=== PATIENT | male | born 1950 | race Caucasian/White ===

== ENCOUNTER 2016-10-23 09:01 | Emergency (ER) | payer MEDICARE, OTHER ==
[~2016-10-23] VITALS: Wt 79.0 kg
[~2016-10-23 09:01] MED LIST: ASPI-664 PO; ATOR20TA38 PO; CARV6.2579 PO; FURO20TA3 PO; GLIP-95 PO; LEVO100T87 PO; PANT40TA4 PO; TAMS0.4C2 PO
--- NOTE | 2016-10-23 11:07 | ERD ---
ER Documentation Chief Complaint Date/Time DATE: 10/23/16 TIME: 11:06 Chief Complaint PT HERE FOR PARACENTESIS, ALSO REPORTS BODYACHES, COUGH, NO FEVER HPI 66-year-old male history of alcoholic cirrhosis who presents for paracentesis. Last paracentesis 2 weeks ago. He describes abdominal fullness and mild shortness of breath secondary to abdominal fullness. He denies any chest pain, no pleuritic pain, no hematemesis or melena. No altered mental status. ROS All systems reviewed and are negative except as per history of present illness. Medications Home Meds Active Scripts Aspirin* (Aspirin* EC) 81 Mg Tablet.dr, 81 MG PO DAILY for 30 Days Prov:DICKSON GROSSMAN 08/16/16 Reported Medications Carvedilol* (Carvedilol*) 12.5 Mg Tablet, 12.5 MG PO BID, #60 TAB 10/23/16 Furosemide* (Furosemide*) 20 Mg Tablet, 20 MG PO BID, #30 TAB 10/16/16 Levothyroxine Sodium* (Levothyroxine Sodium*) 100 Mcg Tablet, 100 MCG PO BEFORE BREAKFAST, #30 TAB 10/16/16 Pantoprazole* (Pantoprazole*) 40 Mg Tablet.dr, 40 MG PO AC BREAKFAST, TAB 10/16/16 Tamsulosin Hcl* (Tamsulosin Hcl*) 0.4 Mg Cap.er.24h, 0.4 MG PO DAILY, CAP 10/16/16 Atorvastatin Calcium* (Atorvastatin Calcium*) 20 Mg Tablet, 20 MG PO QHS, #30 TAB 10/16/16 Glipizide* (Glipizide*) 10 Mg Tablet, 10 MG PO DAILY, TAB 03/13/15 Discontinued Reported Medications Carvedilol* (Carvedilol*) Unknown Strength Tablet, MG PO BID, #60 TAB 10/16/16 Sertraline Hcl* (Sertraline Hcl*) 50 Mg Tablet, 50 MG PO DAILY, #30 TAB 07/17/16 Levothyroxine Sodium* (Levothyroxine Sodium*) 75 Mcg Tablet, 75 MCG PO AC BREAKFAST, TAB 03/13/15 Omeprazole* (Omeprazole*) 40 Mg Capsule.dr, 40 MG PO DAILY, CAP 03/13/15 Tamsulosin Hcl* (Tamsulosin Hcl*) 0.4 Mg Cap.er.24h, 0.8 MG PO DAILY 10/28/13 Simvastatin (Simvastatin) 20 Mg Tablet, 20 MG PO QHS 10/28/13 Metformin Hcl (Glucophage) 500 Mg Tablet, 1000 MG PO BID 10/28/13 Finasteride* (Finasteride*) 5 Mg Tablet, 5 MG PO DAILY 10/28/13 Discontinued Scripts Calcium Carbonate (CALCIUM CARBONATE) 200 Mg Tab.chew, 1000 MG PO PC MEALS for 30 Days, TAB.CHEW Prov:DICKSON GROSSMAN 09/27/16 Hydrocodone Bit-Acetaminophen (Hydrocodone Bit-APAP) 5-325MG Tablet, 1 TAB PO Q6H Y for PAIN, #30 TAB Prov:DICKSON GROSSMAN 09/27/16 Docusate Sodium* (Colace*) 100 Mg Capsule, 100 MG PO BID, #30 CAP Prov:PEBBLES REYES 07/31/16 Midodrine* (Midodrine*) 5 Mg Tablet, 5 MG PO TID@09,13,17 Y for sbp<80 for 30 Days, TAB Prov:PEBBLES REYES 07/31/16 Allergies Allergies: Coded Allergies: No Known Allergy (Unverified , 10/23/16) PMhx/Soc History of Surgery: Yes (CABG, PACEMAKER PLACEMENT, DIALYSIS SHUNT ) Anesthesia Reaction: No Hx 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 Disorder: No Hx Respiratory Disorders: No Hx Cardiac Disorders: Yes (CHF, CAD) Hx Psychiatric Problems: No Hx Miscellaneous Medical Probl: Yes (DM, LIVER CIRRHOSIS, RENAL FAILURE) Hx Alcohol Use: Yes (FORMER DRINKER; NO LONGER DRINKS) Hx Substance Use: No Hx Tobacco Use: Yes Smoking Status: Former smoker FmHx Family History: No diabetes Physical Exam Vitals Vital Signs Date Time Temp Pulse Resp B/P Pulse Ox O2 Delivery O2 Flow Rate FiO2 10/23/16 09:05 97.1 120 19 103/51 96 Physical Exam General: Well developed, well nourished, no acute distress Head: Normocephalic, atraumatic. Eyes: Pupils equally reactive, EOM intact ENT: Moist mucous membranes Neck: Supple, no lymphadenopathy Respiratory: Lungs clear bilaterally, no distress Cardiovascular: RRR, no murmurs, rubs, or gallops Abdominal: Soft, protuberant with fluid wave, no rebound or guarding, no pulsatile mass : Deferred MSK: No edema, no unilateral swelling, 5/5 strength Neurologic: Alert and oriented, moving all extremities, normal speech, no focal weakness, no cerebellar signs Skin: No rash Psych: Normal mood Result Diagram: 10/23/16 1058 10/23/16 1058 Results 24 hrs Laboratory Tests Test 10/23/16 10:58 Activated Partial Thromboplast Time 38.8Sec Alanine Aminotransferase (ALT/SGPT) 34IU/L Albumin 2.8g/dl Albumin/Globulin Ratio 0.93 Alkaline Phosphatase 225IU/L Anion Gap 20 Aspartate Amino Transf (AST/SGOT) 35IU/L Basophils # 0.010^3/ul Basophils % 0.3% Blood Morphology Comment Blood Urea Nitrogen 43mg/dl Calcium Level 8.0mg/dl Carbon Dioxide Level 24mmol/L Chloride Level 90mmol/L Creatinine 5.42mg/dl Direct Bilirubin 0.00mg/dl Eosinophils # 0.010^3/ul Eosinophils % 0.3% Globulin 3.00g/dl Glucose Level 219mg/dl Hematocrit 31.3% Hemoglobin 10.3g/dl INR International Normalized Ratio 1.17 Indirect Bilirubin 0.1mg/dl Lipase 74U/L Lymphocytes # 0.610^3/ul Lymphocytes % 3.9% Mean Corpuscular Hemoglobin 28.7pg Mean Corpuscular Hemoglobin Concent 33.0g/dl Mean Corpuscular Volume 86.9fl Mean Platelet Volume 6.2fl Monocytes # 1.110^3/ul Monocytes % 7.7% Neutrophils # 12.610^3/ul Neutrophils % 87.8% Nucleated Red Blood Cells # 0.010^3/ul Nucleated Red Blood Cells % 0.0/100WBC Platelet Count 28726^3/UL Potassium Level 5.2mmol/L Prothrombin Time 15.0Sec Prothrombin Time Ratio 1.2 Red Blood Count 3.6110^6/ul Red Cell Distribution Width 18.7% Sodium Level 129mmol/L Total Bilirubin 0.1mg/dl Total Protein 5.8g/dl White Blood Count 14.310^3/ul Current Medications Medications (Trade) Dose Ordered Sig/Aj Route PRN Reason Start Time Stop Time Status Last Admin Dose Admin Lidocaine (Xylocaine 1% (Mpf)) 5 ml STK-MED ONCE .ROUTE 10/23/16 13:40 10/23/16 13:41 DC Procedures/MDM EKG, MONITORS, & DIAGNOSTIC IMAGING: Large volume therapeutic paracentesis performed by interventional radiology. LAB INTERPRETATION: No significant coagulopathy noted. Chronic renal failure and hyponatremia consistent with baseline MEDICAL DECISION MAKING: The patient presents with abdominal ascites likely secondary to cirrhosis. Patient does not exhibit any signs or symptoms concerning for complications of cirrhosis such as GI bleed, hepatic encephalopathy or spontaneous bacterial peritonitis. There is no indication currently for diagnostic paracentesis. The patient will benefit from large volume therapeutic paracentesis by interventional radiology. If the patient remains stable without evidence of hemodynamic compromise secondary to fluid shifts the patient can be safely discharged home with close primary care and hepatology follow-up. ER COURSE: The patient had successful large volume therapeutic paracentesis. The patient remained hemodynamically stable and otherwise well-appearing. The patient is safe for discharge home. I kept the patient and/or family informed of laboratory and diagnostic imaging results throughout the emergency room course. DISPOSITION PLAN: We discussed follow up with the patient's primary care doctor within 24 to 48 hours as needed. We also discussed return to the emergency room for worsening symptoms or worsening condition. Discharge Medications: None Departure Diagnosis: Primary Impression: Ascites Ascites type: due to alcoholic cirrhosis Qualified Code: K70.31 - Ascites due to alcoholic cirrhosis Additional Impression: ESRD (end stage renal disease) Condition: Stable MATTEO LANTIGUA MD Oct 23, 2016 11:07
[2016-10-23] MEDS ORDERED: CARV12.579 PO (11:09)
[2016-10-23 11:12] LABS: BASOPHILS % 0.3 % (0.0-2.0); EOSINOPHILS % 0.3 % (0.0-7.0); HEMATOCRIT 31.3 % (42.0-52.0); HEMOGLOBIN 10.3 g/dl (14.0-18.0); LYMPHOCYTES # 0.6 10^3/ul (0.8-2.9); LYMPHOCYTES % 3.9 % (15.0-51.0); MEAN CORPUSCULAR HEMOGLOBIN 28.7 pg (29.0-33.0); MEAN CORPUSCULAR VOLUME 86.9 fl (82.0-101.0); MEAN PLATELET VOLUME 6.2 fl (7.4-10.4); MONOCYTE # 1.1 10^3/ul (0.3-0.9); MONOCYTES % 7.7 % (0.0-11.0); NEUTROPHIL # 12.6 10^3/ul (1.6-7.5); NEUTROPHILS % 87.8 % (39.0-77.0); PLATELET COUNT 363 10^3/UL (140-440); RED BLOOD COUNT 3.61 10^6/ul (4.70-6.10); RED CELL DISTRIBUTION WIDTH 18.7 % (11.5-14.5); UNCORRECTED WBC 14.3 10^3/ul (4.8-10.8); WHITE BLOOD COUNT 14.3 10^3/ul (4.8-10.8)
[2016-10-23 11:16] LABS: CONDITION 1; LH ANALYZER COMMENTS 1
[2016-10-23 11:29] LABS: ALBUMIN 2.8 g/dl (3.3-4.9); POTASSIUM 5.2 mmol/L (3.5-5.1)
[2016-10-23 11:31] LABS: BILIRUBIN,INDIRECT 0.1 mg/dl (0-1.1); BILIRUBIN,TOTAL 0.1 mg/dl (0.2-1.3); CREATININE 5.42 mg/dl (0.61-1.24)
[2016-10-23 11:32] LABS: ALBUMIN/GLOBULIN RATIO 0.93; TOTAL PROTEIN 5.8 g/dl (6.1-8.1)
[2016-10-23 12:13] LABS: INR 1.17; PT RATIO 1.2
[2016-10-23 12:14] LABS: PARTIAL THROMBOPLASTIN TIME 38.8 Sec (25.0-35.0)
[2016-10-23] MEDS ORDERED: LIDOCAINE 1% (MPF) 5 ML VIAL ONE (13:40)
[2016-10-23 14:49] VITALS: BP 72/52; PULSE 98; RESP 16; TEMP 98.4
[2016-10-23] MEDS ORDERED: ALBUMIN HUMAN 25% 50 ML IV ONE (15:00)
--- NOTE | 2016-10-23 15:37 | RADRPT ---
PROCEDURE: Ultrasound guided paracentesis. CLINICAL INDICATION: Ascites and shortness of breath. COMPARISON: 09/26/2016. TECHNIQUE: The risks, benefits, and alternatives were explained to the patient, including but not limited to bl eeding, infection, pain, visceral or vascular damage, shock, and . The patient understood the risks and the alternatives and wished to proceed with the procedure. Informed written consent was o btained. A procedural time out was performed. The patient's name, date of , and procedure to b e performed were verified. Utilizing ultrasound guidance, optimal location for entry to the peritoneal cavity was ascertained. The overlying skin was prepped and draped in the usual sterile fashion. Approximately 10 ml of 1% Xylocaine was injected locally for pain control. Using ultrasound guidance, an 8 Indian catheter wa s introduced into the peritoneal cavity in the right lower quadrant without difficulty. FINDINGS: Initial images demonstrate ascites. Approximately 7.25 liters of serous fluid was aspirated and dis carded. The patient tolerated the procedure well without complication. IMPRESSION: 1. Successful ultrasound-guided paracentesis. RPTAT: QQ .Neo Jerome MD, MD Date Time Electronically viewed and signed by .Neo Jerome MD, on 10/23/2016 15:36 .R/
== END 2016-10-23 15:10 | disposition home or self-care (01) ==
LOC: E/R 09:01
DX: K70.31 Alcoholic cirrhosis of liver with ascites (principal); I50.9 Heart failure, unspecified; E11.9 Type 2 diabetes mellitus without complications; I25.10 Atherosclerotic heart disease of native coronary artery without angina pectoris; N18.6 End stage renal disease; Z95.1 Presence of aortocoronary bypass graft; Z95.0 Presence of cardiac pacemaker; Z87.891 Personal history of nicotine dependence; Z79.82 Long term (current) use of aspirin; Z79.84 Long term (current) use of oral hypoglycemic drugs
CPT/HCPCS: 80053; 83690; 85025; 85610; 85730

== ENCOUNTER 2016-10-30 11:44 | Emergency (ER) | payer MEDICARE, OTHER ==
[~2016-10-30] VITALS: Wt 77.0 kg
[~2016-10-30 11:44] MED LIST changes: +CARV12.579 PO; -CARV6.2579 PO
[2016-10-30 12:03] VITALS: Wt 77.0 kg
--- NOTE | 2016-10-30 15:28 | ERA ---
ER Documentation Chief Complaint Date/Time DATE: 10/30/16 TIME: 15:27 Chief Complaint ABDOMINAL DISTENTION AND NEEDS AN ULTRASOUND DRAINAGE. HPI The patient is a 66-year-old male, presenting to the ER because of recurrent abdominal distention. He had similar symptoms previously from recurrent ascites. He normally has abdominal paracentesis every 2 weeks. He was in the ER a week ago for similar symptoms and had a therapeutic abdominal paracentesis. He denies fever, chills, chest pain, nausea, vomiting, diarrhea, constipation. He has chronic bilateral leg edema. He does not smoke, drink Past medical history: CAD, chronic kidney disease on hemodialysis Sunday and Sunday, history of CHF, cirrhosis, hypothyroidism, BPH Past surgical history: CABG, pacemaker and AICD, right upper extremity AV fistula ROS All systems reviewed and are negative except as per history of present illness. Medications Home Meds Active Scripts Hydrocodone/Acetaminophen ([place] 10-325 Tablet) 1 Each Tablet, 1 TAB PO Q6H Y for PAIN, #7 TAB Prov:FELIPE JARA MD 10/30/16 Aspirin* (Aspirin* EC) 81 Mg Tablet.dr, 81 MG PO DAILY for 30 Days Prov:DICKSON GROSSMAN 08/16/16 Reported Medications Carvedilol* (Carvedilol*) 12.5 Mg Tablet, 12.5 MG PO BID, #60 TAB 10/23/16 Furosemide* (Furosemide*) 20 Mg Tablet, 20 MG PO BID, #30 TAB 10/16/16 Levothyroxine Sodium* (Levothyroxine Sodium*) 100 Mcg Tablet, 100 MCG PO BEFORE BREAKFAST, #30 TAB 10/16/16 Pantoprazole* (Pantoprazole*) 40 Mg Tablet.dr, 40 MG PO AC BREAKFAST, TAB 10/16/16 Tamsulosin Hcl* (Tamsulosin Hcl*) 0.4 Mg Cap.er.24h, 0.4 MG PO DAILY, CAP 10/16/16 Atorvastatin Calcium* (Atorvastatin Calcium*) 20 Mg Tablet, 20 MG PO QHS, #30 TAB 10/16/16 Glipizide* (Glipizide*) 10 Mg Tablet, 10 MG PO DAILY, TAB 03/13/15 Discontinued Reported Medications Carvedilol* (Carvedilol*) Unknown Strength Tablet, MG PO BID, #60 TAB 10/16/16 Allergies Allergies: Coded Allergies: No Known Allergy (Unverified , 10/30/16) PMhx/Soc History of Surgery: Yes (CABG, PACEMAKER PLACEMENT, DIALYSIS SHUNT ) Anesthesia Reaction: No Hx 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 Disorder: No Hx Respiratory Disorders: No Hx Cardiac Disorders: Yes (CHF, CAD) Hx Psychiatric Problems: No Hx Miscellaneous Medical Probl: Yes (DM, LIVER CIRRHOSIS, RENAL FAILURE) Hx Alcohol Use: Yes (FORMER DRINKER; NO LONGER DRINKS) Hx Substance Use: No Hx Tobacco Use: Yes Physical Exam Vitals Vital Signs Date Time Temp Pulse Resp B/P Pulse Ox O2 Delivery O2 Flow Rate FiO2 10/30/16 16:20 102 28 94 Nasal Cannula 2.0 10/30/16 15:35 98.0 93 20 93/56 95 Room Air 10/30/16 12:03 97.9 72 20 80/54 92 Physical Exam Const: No acute distress. Head: Atraumatic. Eyes: Normal Conjunctiva. ENT: Normal External Ears, Nose and Mouth. Neck: Full range of motion. No meningismus. Resp: Minimal expiratory wheezes and scattered rhonchi Cardio: Regular rate and rhythm, no murmurs. Abd: Soft, non distended, normal bowel sounds, positive for ascites, no rigidity, rebound, CVA tenderness Skin: No petechiae or rashes. Back: No midline or flank tenderness. Ext: Minimal bilateral leg edema, no calf tenderness Neur: Awake and alert. No focal deficit Psych: Normal Mood and Affect. Result Diagram: 10/30/16 1555 10/30/16 1555 Results 24 hrs Laboratory Tests Test 10/30/16 15:55 Activated Partial Thromboplast Time 35.9Sec Alanine Aminotransferase (ALT/SGPT) 30IU/L Albumin 2.6g/dl Albumin/Globulin Ratio 0.81 Alkaline Phosphatase 226IU/L Anion Gap 19 Aspartate Amino Transf (AST/SGOT) 28IU/L Blood Morphology Comment Blood Urea Nitrogen 50mg/dl Calcium Level 7.4mg/dl Carbon Dioxide Level 23mmol/L Chloride Level 93mmol/L Creatinine 5.12mg/dl Differential Comment MANUAL DIFF Direct Bilirubin 0.00mg/dl Eosinophils # 0.110^3/ul Eosinophils % 1.0% Globulin 3.20g/dl Glucose Level 222mg/dl Hematocrit 28.8% Hemoglobin 9.6g/dl INR International Normalized Ratio 1.14 Indirect Bilirubin 0.1mg/dl Lipase 104U/L Lymphocytes # 1.010^3/ul Lymphocytes % 7.0% Mean Corpuscular Hemoglobin 28.8pg Mean Corpuscular Hemoglobin Concent 33.4g/dl Mean Corpuscular Volume 86.2fl Mean Platelet Volume 6.6fl Monocytes # 0.810^3/ul Monocytes % 6.0% Neutrophils # 12.010^3/ul Neutrophils % 86.0% Platelet Count 57894^3/UL Potassium Level 4.2mmol/L Prothrombin Time 14.6Sec Prothrombin Time Ratio 1.1 Red Blood Count 3.3410^6/ul Red Cell Distribution Width 19.6% Sodium Level 131mmol/L Total Bilirubin 0.1mg/dl Total Protein 5.8g/dl White Blood Count 14.010^3/ul Current Medications Medications (Trade) Dose Ordered Sig/Aj Route PRN Reason Start Time Stop Time Status Last Admin Dose Admin Levalbuterol (Xopenex Neb) 1.25 mg ONCE ONCE HHN 10/30/16 16:00 10/30/16 16:01 DC 10/30/16 16:06 Ipratropium [place] (Atrovent 0.02% (Neb)) 0.5 mg ONCE ONCE HHN 10/30/16 16:00 10/30/16 16:01 DC 10/30/16 16:06 Acetaminophen/ Hydrocodone Bitart ([place] (10/325)) 1 tab ONCE ONCE PO 10/30/16 16:30 10/30/16 16:31 DC 10/30/16 16:34 Lidocaine (Xylocaine 1% (Mpf)) 5 ml STK-MED ONCE .ROUTE 10/30/16 17:50 10/30/16 17:51 DC 10/30/16 18:13 Procedures/[place] [id number] Radiology Main Line: [phone] DIAGNOSTIC IMAGING REPORT Patient: TIFFANY JETT : 1950 Age: 66 Sex: M MR #: [id number] DOS: 10/30/16 1535 Ordering MD: FELIPE JARA MD Location: E/R Room/Bed: PROCEDURE: XR Chest. CLINICAL INDICATION: Cough. TECHNIQUE: Single frontal view. COMPARISON: 09/18/2016. FINDINGS: There is patchy air space disease at both lung bases and bilateral interstitial disease consistent with bibasilar atelectasis and mild pulmonary edema. The heart is enlarged. There is calcification in the aorta consistent with atherosclerosis. There are sternal wires. There is a left-sided biventricular pacemaker/internal cardiac defibrillator with leads in the right atrium, right ventricle, and coronary sinus. There are small bilateral pleural effusions. There is no pneumothorax. IMPRESSION: 1. Bibasilar atelectasis and mild pulmonary edema. 2. Cardiomegaly and atherosclerosis. 3. Previous median sternotomy. 4. Permanent biventricular pacemaker/internal cardiac defibrillator. 5. Small bilateral pleural effusions. RPTAT: QQ .Neo Jerome MD, Date Time Electronically viewed and signed by .Neo Jerome MD, on 10/30/2016 16:18 .R/ CC: FELIPE JARA MD [place] [id number] Radiology Main Line: [phone] DIAGNOSTIC IMAGING REPORT Patient: TIFFANY JETT : 1950 Age: 66 Sex: M MR #: [id number] DOS: 10/30/16 1535 Ordering MD: FELIPE JARA MD Location: E/R Room/Bed: PROCEDURE: Ultrasound guided paracentesis. CLINICAL INDICATION: Ascites and shortness of breath. COMPARISON: 10/23/2016. TECHNIQUE: The risks, benefits, and alternatives were explained to the patient, including but not limited to bleeding, infection, pain, visceral or vascular damage, shock , and . The patient understood the risks and the alternatives and wished to proceed with the procedure. Informed written consent was obtained. A procedural time out was performed. The patient's name, date of , and procedure to be performed were verified. Utilizing ultrasound guidance, optimal location for entry to the peritoneal cavity was ascertained. The overlying skin was prepped and draped in the usual sterile fashion. Approximately 10 ml of 1% Xylocaine was injected locally for pain control. Using ultrasound guidance, an 8 [place] catheter was introduced into the peritoneal cavity in the right lower quadrant without difficulty. FINDINGS: Initial images demonstrate ascites. Approximately 6.0 liters of serous fluid was aspirated and discarded. The patient tolerated the procedure well without complication. IMPRESSION: 1. Successful ultrasound-guided paracentesis. RPTAT: QQ .Neo Jerome MD, MD Date Time Electronically viewed and signed by .Neo Jerome MD, MD on 10/30/2016 17:53 .R/ CC: FELIPE JARA MD MEDICAL MAKING DECISION: The patient is a 66-year-old male, presenting with recurrent ascites and acute bronchospasm. He was treated with Xopenex 1.25 mg and Atrovent 0.5 mg nebulizer with good response, was treated with [place] 10 mg p.o. for his chronic pain with good response. The differential diagnoses for acute bronchospasm considered include but are not limited to asthma, COPD, pneumonia, pulmonary embolus, pleural effusion, congestive heart failure. The differential diagnoses acute abdominal distention considered include but are not limited to cholelithiasis, cholecystitis, cystitis, pancreatitis, hepatitis , gastritis, peptic ulcer disease, gastric ulcer, appendicitis, diverticulitis, cholangitis, choledocholithiasis, partial small bowel obstruction. Departure Diagnosis: Primary Impression: Ascites Additional Impression: Anemia Condition: Good Comments I discussed the findings with the patient. I advised the patient to follow-up with the primary physician in about 1-2 days, sooner if needed and return if any concern. FELIPE JARA MD Oct 30, 2016 15:28
[2016-10-30 15:35] VITALS: BP 93/56; PULSE 93; RESP 20; TEMP 98
[2016-10-30] MEDS ORDERED: IPRATROPIUM (NEB) 0.5 MG/2.5 ML AMP HHN ONE (16:00)
[2016-10-30] MEDS ORDERED: LEVALBUTEROL (NEB) 1.25 MG/0.5 ML AMP HHN ONE (16:00)
[2016-10-30 16:04] LABS: HEMATOCRIT 28.8 % (42.0-52.0); HEMOGLOBIN 9.6 g/dl (14.0-18.0); MEAN CORPUSCULAR HEMOGLOBIN 28.8 pg (29.0-33.0); MEAN CORPUSCULAR HGB CONC 33.4 g/dl (32.0-37.0); MEAN CORPUSCULAR VOLUME 86.2 fl (82.0-101.0); MEAN PLATELET VOLUME 6.6 fl (7.4-10.4); PLATELET COUNT 231 10^3/UL (140-440); RED BLOOD COUNT 3.34 10^6/ul (4.70-6.10); RED CELL DISTRIBUTION WIDTH 19.6 % (11.5-14.5)
[2016-10-30 16:10] LABS: CONDITION 1; LH ANALYZER COMMENTS 1; SUSPECT 1
[2016-10-30 16:14] LABS: ALBUMIN 2.6 g/dl (3.3-4.9)
[2016-10-30 16:15] LABS: POTASSIUM 4.2 mmol/L (3.5-5.1)
[2016-10-30 16:17] LABS: BILIRUBIN,INDIRECT 0.1 mg/dl (0-1.1); BILIRUBIN,TOTAL 0.1 mg/dl (0.2-1.3); CREATININE 5.12 mg/dl (0.61-1.24)
[2016-10-30 16:18] LABS: ALBUMIN/GLOBULIN RATIO 0.81; CALCIUM 7.4 mg/dl (8.4-10.2); INR 1.14; PROTIME 14.6 Sec (12.2-14.2); PT RATIO 1.1; TOTAL PROTEIN 5.8 g/dl (6.1-8.1)
[2016-10-30 16:19] LABS: PARTIAL THROMBOPLASTIN TIME 35.9 Sec (25.0-35.0)
--- NOTE | 2016-10-30 16:19 | RADRPT ---
PROCEDURE: XR Chest. CLINICAL INDICATION: Cough. TECHNIQUE: Single frontal view. COMPARISON: 09/18/2016. FINDINGS: There is patchy air space disease at both lung bases and bilateral interstitial disease consistent w ith bibasilar atelectasis and mild pulmonary edema. The heart is enlarged. There is calcification in the aorta consistent with atherosclerosis. There are sternal wires. There is a left-sided biventricular pacemaker/internal cardiac defibrillator wit h leads in the right atrium, right ventricle, and coronary sinus. There are small bilateral pleural effusions. There is no pneumothorax. IMPRESSION: 1. Bibasilar atelectasis and mild pulmonary edema. 2. Cardiomegaly and atherosclerosis. 3. Previous median sternotomy. 4. Permanent biventricular pacemaker/internal cardiac defibrillator. 5. Small bilateral pleural effusions. RPTAT: QQ .Neo Jerome MD, Date Time Electronically viewed and signed by .Neo Jerome MD, on 10/30/2016 16:18 .R/
[2016-10-30] MEDS ORDERED: HYDROCODONE/APAP (10/325) TAB PO ONE (16:30)
[2016-10-30 17:24] LABS: EOSINOPHILS # 0.1 10^3/ul (0.0-0.5); MONOCYTE # 0.8 10^3/ul (0.3-0.9)
[2016-10-30] MEDS ORDERED: LIDOCAINE 1% (MPF) 5 ML VIAL ONE (17:50)
[2016-10-30] MEDS ORDERED: HYDR-902 PO (17:51)
--- NOTE | 2016-10-30 17:54 | RADRPT ---
PROCEDURE: Ultrasound guided paracentesis. CLINICAL INDICATION: Ascites and shortness of breath. COMPARISON: 10/23/2016. TECHNIQUE: The risks, benefits, and alternatives were explained to the patient, including but not limited to bl eeding, infection, pain, visceral or vascular damage, shock, and . The patient understood the risks and the alternatives and wished to proceed with the procedure. Informed written consent was o btained. A procedural time out was performed. The patient's name, date of , and procedure to b e performed were verified. Utilizing ultrasound guidance, optimal location for entry to the peritoneal cavity was ascertained. The overlying skin was prepped and draped in the usual sterile fashion. Approximately 10 ml of 1% Xylocaine was injected locally for pain control. Using ultrasound guidance, an 8 [place] catheter wa s introduced into the peritoneal cavity in the right lower quadrant without difficulty. FINDINGS: Initial images demonstrate ascites. Approximately 6.0 liters of serous fluid was aspirated and disc arded. The patient tolerated the procedure well without complication. IMPRESSION: 1. Successful ultrasound-guided paracentesis. RPTAT: QQ .Neo Jerome MD, MD Date Time Electronically viewed and signed by .Neo Jerome MD, on 10/30/2016 17:53 .R/
== END 2016-10-30 17:57 | disposition home or self-care (01) ==
LOC: E/R 11:44
DX: R18.8 Other ascites (principal); D64.9 Anemia, unspecified; E11.9 Type 2 diabetes mellitus without complications; I50.9 Heart failure, unspecified; N18.6 End stage renal disease; I25.10 Atherosclerotic heart disease of native coronary artery without angina pectoris; Z79.82 Long term (current) use of aspirin; Z79.84 Long term (current) use of oral hypoglycemic drugs; Z87.891 Personal history of nicotine dependence; Z95.1 Presence of aortocoronary bypass graft; Z99.2 Dependence on renal dialysis
CPT/HCPCS: 36415; 71010; 80053; 83690; 85025; 85610; 85730; 94664

== ENCOUNTER 2016-11-11 09:13 | Emergency (ER) | payer MEDICARE, OTHER ==
[~2016-11-11] VITALS: Ht 165.1 cm; Wt 72.0 kg
[~2016-11-11 09:13] MED LIST changes: +HYDR-902 PO
[2016-11-11 09:15] VITALS: Ht 165.1 cm; Wt 72.0 kg
[2016-11-11 10:25] LABS: BASOPHIL # 0.1 10^3/ul (0.0-0.1); BASOPHILS % 0.4 % (0.0-2.0); EOSINOPHILS % 0.3 % (0.0-7.0); HEMATOCRIT 31.6 % (42.0-52.0); HEMOGLOBIN 10.5 g/dl (14.0-18.0); LYMPHOCYTES # 0.6 10^3/ul (0.8-2.9); LYMPHOCYTES % 4.2 % (15.0-51.0); MEAN CORPUSCULAR HEMOGLOBIN 28.9 pg (29.0-33.0); MEAN CORPUSCULAR HGB CONC 33.4 g/dl (32.0-37.0); MEAN CORPUSCULAR VOLUME 86.5 fl (82.0-101.0); MEAN PLATELET VOLUME 6.1 fl (7.4-10.4); MONOCYTE # 0.7 10^3/ul (0.3-0.9); MONOCYTES % 5.1 % (0.0-11.0); NEUTROPHIL # 12.8 10^3/ul (1.6-7.5); PLATELET COUNT 310 10^3/UL (140-440); RED BLOOD COUNT 3.65 10^6/ul (4.70-6.10); RED CELL DISTRIBUTION WIDTH 20.9 % (11.5-14.5); UNCORRECTED WBC 14.3 10^3/ul (4.8-10.8); WHITE BLOOD COUNT 14.3 10^3/ul (4.8-10.8)
[2016-11-11 10:28] LABS: CONDITION 1; LH ANALYZER COMMENTS 1
[2016-11-11 10:31] LABS: ALBUMIN 3.3 g/dl (3.3-4.9)
[2016-11-11 10:32] LABS: INR 1.11; POTASSIUM 4.2 mmol/L (3.5-5.1); PROTIME 14.3 Sec (12.2-14.2); PT RATIO 1.1
[2016-11-11 10:33] LABS: PARTIAL THROMBOPLASTIN TIME 35.2 Sec (25.0-35.0)
[2016-11-11 10:34] LABS: ALBUMIN/GLOBULIN RATIO 0.84; BILIRUBIN,INDIRECT 0.3 mg/dl (0-1.1); BILIRUBIN,TOTAL 0.3 mg/dl (0.2-1.3); CREATININE 3.82 mg/dl (0.61-1.24); TOTAL PROTEIN 7.2 g/dl (6.1-8.1)
[2016-11-11 10:35] LABS: CALCIUM 8.3 mg/dl (8.4-10.2)
[2016-11-11] MEDS ORDERED: LIDOCAINE 1% (MPF) 5 ML VIAL ONE (11:33)
--- NOTE | 2016-11-11 12:19 | RADRPT ---
PROCEDURE: US guided paracentesis CLINICAL INDICATION: Ascites TECHNIQUE: Multiple sonographic images were obtained through the patient's abdomen. A site in the patient's RIGHT lower abdomen was selected and marked. The area was prepped and draped in the usual sterile fashion. 1% lidocaine was utilized. A 19-gauge Yueh needle was advanced into the peritonea l space and the introducer was connected to a vacuum drainage bottle. A total of 6000 cc of clear y ellow fluid were drained at the end of the procedure. The patient tolerated the procedure well. This was ordered as a therapeutic paracentesis COMPARISON: 10/30/2016 FINDINGS: Ascites. RPTAT: AA IMPRESSION: Successful paracentesis. .Richa Carmona MD, Date Time Electronically viewed and signed by .Richa Carmona MD, MD on 11/11/2016 12:18 .J/
--- NOTE | 2016-11-11 12:25 | ERD ---
ER Documentation Chief Complaint Date/Time DATE: 11/11/16 TIME: 12:23 Chief Complaint ASCITES - SOB HPI This is a 66-year-old male who presents to the emergency room for evaluation of shortness of breath. This patient does have a history of liver failure and ascites. He states it feels similar to his previous episodes. He denies any fevers and came to the ER today for evaluation. He states that his relieving factors are having his fluid drained from his abdomen ROS All systems reviewed and are negative except as per history of present illness. Medications Home Meds Active Scripts Hydrocodone/Acetaminophen ([place] 10-325 Tablet) 1 Each Tablet, 1 TAB PO Q6H Y for PAIN, #7 TAB Prov:FELIPE JARA MD 10/30/16 Aspirin* (Aspirin* EC) 81 Mg Tablet.dr, 81 MG PO DAILY for 30 Days Prov:DICKSON GROSSMAN 08/16/16 Reported Medications Carvedilol* (Carvedilol*) 12.5 Mg Tablet, 12.5 MG PO BID, #60 TAB 10/23/16 Furosemide* (Furosemide*) 20 Mg Tablet, 20 MG PO BID, #30 TAB 10/16/16 Levothyroxine Sodium* (Levothyroxine Sodium*) 100 Mcg Tablet, 100 MCG PO BEFORE BREAKFAST, #30 TAB 10/16/16 Pantoprazole* (Pantoprazole*) 40 Mg Tablet.dr, 40 MG PO AC BREAKFAST, TAB 10/16/16 Tamsulosin Hcl* (Tamsulosin Hcl*) 0.4 Mg Cap.er.24h, 0.4 MG PO DAILY, CAP 10/16/16 Atorvastatin Calcium* (Atorvastatin Calcium*) 20 Mg Tablet, 20 MG PO QHS, #30 TAB 10/16/16 Glipizide* (Glipizide*) 10 Mg Tablet, 10 MG PO DAILY, TAB 03/13/15 Allergies Allergies: Coded Allergies: No Known Allergy (Unverified , 10/30/16) PMhx/Soc History of Surgery: Yes (CABG, PACEMAKER PLACEMENT, DIALYSIS SHUNT ) Anesthesia Reaction: No Hx 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 Disorder: No Hx Respiratory Disorders: No Hx Cardiac Disorders: Yes (CHF, CAD) Hx Psychiatric Problems: No Hx Miscellaneous Medical Probl: Yes (DM, LIVER CIRRHOSIS, RENAL FAILURE) Hx Alcohol Use: Yes (FORMER DRINKER; NO LONGER DRINKS) Hx Substance Use: No Hx Tobacco Use: No (QUIT 30 YEARS AGO) Physical Exam Vitals Vital Signs Date Time Temp Pulse Resp B/P Pulse Ox O2 Delivery O2 Flow Rate FiO2 11/11/16 09:15 96.8 67 28 82/53 92 Physical Exam INITIAL VITAL SIGNS: Reviewed by me GENERAL: The patient is well developed and appropriate for usual state of health in no apparent distress HEENT: Pupils equal, round, and reactive to light. EOMI. There is no scleral icterus. NECK: C-spine is soft and supple, there is no meningismus. There is no cervical lymphadenopathy. LUNGS: Clear to auscultation bilaterally. There are no rales, wheezes or rhonchi. HEART: Regular rate and rhythm, no murmurs, clicks, rubs or gallops. ABDOMEN: Abdominal distention with positive fluid shift,. There are bowel sounds in all four quadrants. No rebound or guarding. EXTREMITIES: There is no peripheral cyanosis or edema. No focal swelling or erythema. NEUROLOGICAL: The patient moves all four extremities with 5/5 strength. Cranial nerves II - XII are intact. Normal gait. Alert and oriented SKIN: There is no apparent rash or petechiae. HEME/LYMPHATIC: There is no evidence of excessive bruising or lymphedema. PSYCHIATRIC: The patient does not appear anxious or depressed. Result Diagram: 11/11/16 1011 11/11/16 1011 Results 24 hrs Laboratory Tests Test 11/11/16 10:11 Activated Partial Thromboplast Time 35.2Sec Alanine Aminotransferase (ALT/SGPT) 27IU/L Albumin 3.3g/dl Albumin/Globulin Ratio 0.84 Alkaline Phosphatase 293IU/L Anion Gap 22 Aspartate Amino Transf (AST/SGOT) 23IU/L Basophils # 0.110^3/ul Basophils % 0.4% Blood Morphology Comment Blood Urea Nitrogen 36mg/dl Calcium Level 8.3mg/dl Carbon Dioxide Level 24mmol/L Chloride Level 93mmol/L Creatinine 3.82mg/dl Direct Bilirubin 0.00mg/dl Eosinophils # 0.010^3/ul Eosinophils % 0.3% Globulin 3.90g/dl Glucose Level 185mg/dl Hematocrit 31.6% Hemoglobin 10.5g/dl INR International Normalized Ratio 1.11 Indirect Bilirubin 0.3mg/dl Lipase 124U/L Lymphocytes # 0.610^3/ul Lymphocytes % 4.2% Mean Corpuscular Hemoglobin 28.9pg Mean Corpuscular Hemoglobin Concent 33.4g/dl Mean Corpuscular Volume 86.5fl Mean Platelet Volume 6.1fl Monocytes # 0.710^3/ul Monocytes % 5.1% Neutrophils # 12.810^3/ul Neutrophils % 90.0% Nucleated Red Blood Cells # 0.010^3/ul Nucleated Red Blood Cells % 0.0/100WBC Platelet Count 28045^3/UL Potassium Level 4.2mmol/L Prothrombin Time 14.3Sec Prothrombin Time Ratio 1.1 Red Blood Count 3.6510^6/ul Red Cell Distribution Width 20.9% Sodium Level 135mmol/L Total Bilirubin 0.3mg/dl Total Protein 7.2g/dl White Blood Count 14.310^3/ul Current Medications Medications (Trade) Dose Ordered Sig/Aj Route PRN Reason Start Time Stop Time Status Last Admin Dose Admin Lidocaine (Xylocaine 1% (Mpf)) 5 ml STK-MED ONCE .ROUTE 11/11/16 11:33 11/11/16 11:34 DC 11/11/16 11:56 Procedures/MDM This 66-year-old male presents to the ER for evaluation of shortness of breath. This patient did have abdominal distention secondary to ascites and did have an ultrasound paracentesis with removal of 6 L of fluid. Pulmonary evaluation he is sleeping comfortably and in no acute distress. He is not hypoxic, and hemodynamically stable. The patient will be discharged at this time. No fevers or concern for SBP at this time Departure Diagnosis: Primary Impression: Shortness of breath Additional Impressions: Ascites Normocytic anemia End stage renal disease Condition: EUSEBIO Smiley DO Nov 11, 2016 12:25
[2016-11-11 13:36] VITALS: BP 97/51; PULSE 102; RESP 18; TEMP 97.9
--- NOTE | 2016-11-11 14:36 | RADRPT ---
PROCEDURE: XR Chest. CLINICAL INDICATION: Shortness of breath TECHNIQUE: Single frontal view of the chest was obtained. COMPARISON: 10/30/2016 FINDINGS: The cardiac silhouette is enlarged. There are calcifications in the thoracic aorta. There is mild pr ominence of the upper lobe vasculature. Mild diffuse interstitial infiltrates are present. There i s some minimal left lower lobe subsegmental atelectasis and there is a small left pleural effusion. There is no change in the left subclavian combination pacemaker AICD. There are mid sternotomy wir es present. IMPRESSION: 1. Mild congestive heart failure. 2. Small left pleural effusion. 3. Aortic atherosclerosis. RPTAT: AACC Physician Rachel Date Time Electronically viewed and signed by Demetris Carty Physician on 11/11/2016 14:36 /
== END 2016-11-11 13:36 | disposition home or self-care (01) ==
LOC: E/R 09:13
DX: R06.02 Shortness of breath (principal); R18.8 Other ascites; D64.9 Anemia, unspecified; I25.10 Atherosclerotic heart disease of native coronary artery without angina pectoris; I50.9 Heart failure, unspecified; E11.9 Type 2 diabetes mellitus without complications; N18.6 End stage renal disease; Z79.82 Long term (current) use of aspirin; Z87.891 Personal history of nicotine dependence; Z95.1 Presence of aortocoronary bypass graft; Z99.2 Dependence on renal dialysis; Z79.84 Long term (current) use of oral hypoglycemic drugs
CPT/HCPCS: 36415; 71010; 80053; 83690; 85025; 85610; 85730

== ENCOUNTER 2016-11-20 06:04 | Inpatient (IN) | payer MEDICARE, OTHER ==
[2016-11-20] VITALS (16 sets, daily range): BP systolic 83–118; BP diastolic 44–69; PULSE 62–98; RESP 18–20; Ht 165.1 cm; Wt 70.9 kg
[~2016-11-20] VITALS: Ht 165.1 cm; Wt 70.9 kg
[2016-11-20] MEDS ORDERED: morphine 4 MG/ML VIAL IV STA (06:40)
[2016-11-20] MEDS ORDERED: ONDANSETRON 4 MG INJ IV STA ×2 (06:40→08:13)
[2016-11-20 07:05] LABS: BASOPHIL # 0.1 10^3/ul (0.0-0.1); BASOPHILS % 0.6 % (0.0-2.0); EOSINOPHILS # 0.1 10^3/ul (0.0-0.5); EOSINOPHILS % 1.3 % (0.0-7.0); HEMATOCRIT 30.5 % (42.0-52.0); HEMOGLOBIN 10.5 g/dl (14.0-18.0); LYMPHOCYTES # 0.9 10^3/ul (0.8-2.9); LYMPHOCYTES % 9.6 % (15.0-51.0); MEAN CORPUSCULAR HEMOGLOBIN 29.7 pg (29.0-33.0); MEAN CORPUSCULAR HGB CONC 34.4 g/dl (32.0-37.0); MEAN CORPUSCULAR VOLUME 86.1 fl (82.0-101.0); MEAN PLATELET VOLUME 6.6 fl (7.4-10.4); MONOCYTE # 0.8 10^3/ul (0.3-0.9); MONOCYTES % 8.8 % (0.0-11.0); NEUTROPHIL # 7.6 10^3/ul (1.6-7.5); NEUTROPHILS % 79.7 % (39.0-77.0); PLATELET COUNT 263 10^3/UL (140-440); RED BLOOD COUNT 3.54 10^6/ul (4.70-6.10); RED CELL DISTRIBUTION WIDTH 22.4 % (11.5-14.5); UNCORRECTED WBC 9.5 10^3/ul (4.8-10.8); WHITE BLOOD COUNT 9.5 10^3/ul (4.8-10.8)
[2016-11-20 07:06] LABS: CONDITION 1; LH ANALYZER COMMENTS 1
[2016-11-20 07:16] LABS: INR 1.04; PROTIME 13.6 Sec (12.2-14.2); PT RATIO 1.1
[2016-11-20 07:17] LABS: PARTIAL THROMBOPLASTIN TIME 32.2 Sec (25.0-35.0)
[2016-11-20 07:19] LABS: CREATININE 6.83 mg/dl (0.61-1.24)
[2016-11-20 07:20] LABS: ALBUMIN/GLOBULIN RATIO 0.76; BILIRUBIN,INDIRECT 0.1 mg/dl (0-1.1); BILIRUBIN,TOTAL 0.1 mg/dl (0.2-1.3); TOTAL PROTEIN 6.9 g/dl (6.1-8.1)
[2016-11-20 07:21] LABS: CALCIUM 8.3 mg/dl (8.4-10.2)
[2016-11-20] MEDS ORDERED: ASPI-664 PO (07:41)
[2016-11-20] MEDS ORDERED: ALBUTEROL 0.5% (NEB) 2.5 MG/0.5 ML AMP INH STA (07:52)
[2016-11-20] MEDS ORDERED: FUROSEMIDE 40 MG INJ IV STA (07:52)
[2016-11-20] MEDS ORDERED: NA POLYST SULFON 15 GM/60 ML BTL PO STA (07:52)
[2016-11-20] MEDS ORDERED: NA BICARBONATE 8.4% 50 ML SYG IV STA (07:52)
[2016-11-20] MEDS ORDERED: CA GLUCONATE (GM) 10% 10ML INJ IV STA (07:52)
[2016-11-20] MEDS ORDERED: HYDROmorphONE 1 MG/ML SYG IV STA (08:13)
[2016-11-20] MEDS ORDERED: IPRATROPIUM (NEB) 0.5 MG/2.5 ML AMP NEB STA (08:33)
[2016-11-20] MEDS ORDERED: ALBUTEROL 0.5% (NEB) 2.5 MG/0.5 ML AMP NEB STA (08:33)
--- NOTE | 2016-11-20 09:30 | ERA ---
ER Documentation Chief Complaint Date/Time DATE: 11/20/16 TIME: 09:16 Chief Complaint abd pain,SOB, hx liver cirrhosis HPI This is a 66-year-old male with a known history of liver cirrhosis that presents to the emergency department complaining of worsening abdominal distention, abdominal discomfort and dyspnea. He states that the symptoms are similar nature to his previous exacerbations of ascites that have required paracentesis. His last paracentesis was 2 weeks prior to arrival. He has had no fevers or shaking or chills. He does state he is chronic swelling of his lower extremities which has not worsened. He denies any chest pain or pressure that radiates to the neck arm back or jaw. He denies any hemoptysis hematemesis or melanotic stools. The patient has a known history of renal failure on dialysis every Sunday and Sunday. The patient is scheduled to undergo dialysis tomorrow. He has been compliant with all of his dialysis sessions and his last full run of dialysis was 48 hours prior to arrival. He has a right AV fistula in the upper extremity. ROS All systems reviewed and are negative except as per history of present illness. Medications Home Meds Reported Medications Aspirin (Low Dose Aspirin) 81 Mg Tablet.dr, 81 MG PO DAILY, #30 TAB 11/20/16 Carvedilol* (Carvedilol*) 12.5 Mg Tablet, 12.5 MG PO BID, #60 TAB 10/23/16 Furosemide* (Furosemide*) 20 Mg Tablet, 20 MG PO BID, #30 TAB 10/16/16 Levothyroxine Sodium* (Levothyroxine Sodium*) 100 Mcg Tablet, 100 MCG PO BEFORE BREAKFAST, #30 TAB 10/16/16 Pantoprazole* (Pantoprazole*) 40 Mg Tablet.dr, 40 MG PO AC BREAKFAST, TAB 10/16/16 Tamsulosin Hcl* (Tamsulosin Hcl*) 0.4 Mg Cap.er.24h, 0.4 MG PO DAILY, CAP 10/16/16 Atorvastatin Calcium* (Atorvastatin Calcium*) 20 Mg Tablet, 20 MG PO QHS, #30 TAB 10/16/16 Glipizide* (Glipizide*) 10 Mg Tablet, 10 MG PO DAILY, TAB 03/13/15 Discontinued Scripts Hydrocodone/Acetaminophen ([place] 10-325 Tablet) 1 Each Tablet, 1 TAB PO Q6H Y for PAIN, #7 TAB Prov:FELIPE JARA MD 10/30/16 Aspirin* (Aspirin* EC) 81 Mg Tablet., 81 MG PO DAILY for 30 Days Prov:DICKSON GROSSMAN 08/16/16 Allergies Allergies: Coded Allergies: No Known Allergy (Unverified , 11/20/16) PMhx/Soc History of Surgery: Yes (CABG, PACEMAKER PLACEMENT, DIALYSIS SHUNT ) Anesthesia Reaction: No Hx 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 Disorder: No Hx Respiratory Disorders: No Hx Cardiac Disorders: Yes (CHF, CAD) Hx Psychiatric Problems: No Hx Miscellaneous Medical Probl: Yes (DM, LIVER CIRRHOSIS, RENAL FAILURE) Hx Alcohol Use: Yes (FORMER DRINKER; NO LONGER DRINKS) Hx Substance Use: No Hx Tobacco Use: No (QUIT 30 YEARS AGO) Physical Exam Vitals Vital Signs Date Time Temp Pulse Resp B/P Pulse Ox O2 Delivery O2 Flow Rate FiO2 11/20/16 10:22 110 18 98 21 11/20/16 08:09 105 18 98 21 11/20/16 06:13 97.6 107 18 101/65 99 Physical Exam Constitutional:Well-developed. Well-nourished. HEENT:Normocephalic. Atraumatic.Pupils were equal round reactive to light. Moist mucous membranes.No tonsillar exudates. Neck: No nuchal rigidity. No lymphadenopathy. No posterior cervical spine tenderness or step-offs. Respiratory: Not using accessory muscles of respiration.Lungs were clear to auscultation bilaterally. No rhonchi. No rales. No wheezing. Cardiovascular: Regular rate regular rhythm.No murmurs. No rubs were appreciated.S1, S2 normal. Distal pulses are palpable 2+ bilaterally. GI: Abdomen was soft. Nontender. Tense abdominal ascites with positive fluid thrill. No pulsatile abdominal masses or bruits. No rebound. No guarding. Bowel sounds were present and normal. Muscle skeletal: Full range of motion of both the upper and lower extremities bilaterally.Normal muscle tone.No assymetrical calf tenderness or swelling. Skin: No petechia, no purpura. No lesions on the palms or the soles of the feet. No maculopapular rash. 2+ nonpitting edema the bilateral lower extremities. Positive thrill and bruit of the right upper extremity. NEURO: Patient was alert, awake, orientated x3.No facial droop. Gait observed and normal with no ataxia.Speech had regular rate and rhythm. No focal neurological deficits. Result Diagram: 11/20/1652 11/20/1652 Results 24 hrs Laboratory Tests Test 11/20/16 06:52 Activated Partial Thromboplast Time 32.2Sec Alanine Aminotransferase (ALT/SGPT) 26IU/L Albumin 3.0g/dl Albumin/Globulin Ratio 0.76 Alkaline Phosphatase 221IU/L Anion Gap 23 Aspartate Amino Transf (AST/SGOT) 19IU/L B-Type Natriuretic Peptide 11674XG/ML Basophils # 0.110^3/ul Basophils % 0.6% Blood Morphology Comment Blood Urea Nitrogen 76mg/dl Calcium Level 8.3mg/dl Carbon Dioxide Level 21mmol/L Chloride Level 95mmol/L Creatinine 6.83mg/dl Direct Bilirubin 0.00mg/dl Eosinophils # 0.110^3/ul Eosinophils % 1.3% Globulin 3.90g/dl Glucose Level 218mg/dl Hematocrit 30.5% Hemoglobin 10.5g/dl INR International Normalized Ratio 1.04 Indirect Bilirubin 0.1mg/dl Lymphocytes # 0.910^3/ul Lymphocytes % 9.6% Mean Corpuscular Hemoglobin 29.7pg Mean Corpuscular Hemoglobin Concent 34.4g/dl Mean Corpuscular Volume 86.1fl Mean Platelet Volume 6.6fl Monocytes # 0.810^3/ul Monocytes % 8.8% Neutrophils # 7.610^3/ul Neutrophils % 79.7% Nucleated Red Blood Cells # 0.010^3/ul Nucleated Red Blood Cells % 0.0/100WBC Platelet Count 84750^3/UL Potassium Level 6.0mmol/L Prothrombin Time 13.6Sec Prothrombin Time Ratio 1.1 Red Blood Count 3.5410^6/ul Red Cell Distribution Width 22.4% Sodium Level 133mmol/L Total Bilirubin 0.1mg/dl Total Protein 6.9g/dl White Blood Count 9.510^3/ul Current Medications Medications (Trade) Dose Ordered Sig/Aj Route PRN Reason Start Time Stop Time Status Last Admin Dose Admin Morphine Sulfate (morphine) 4 mg ONCE STAT IV 11/20/16 06:40 11/20/16 06:42 DC 11/20/16 06:52 Ondansetron HCl (Zofran Inj) 4 mg ONCE STAT IV 11/20/16 06:40 11/20/16 06:42 DC 11/20/16 06:51 Furosemide (Lasix) 40 mg ONCE STAT IV 11/20/16 07:52 11/20/16 07:53 DC 11/20/16 08:04 Sodium Polystyrene Sulfonate (Kayexalate) 30 gm ONCE STAT PO 11/20/16 07:52 11/20/16 07:53 DC 11/20/16 08:01 Albuterol (Proventil 0.5% (Neb)) 15 mg ONCE STAT INH 11/20/16 07:52 11/20/16 07:53 DC 11/20/16 08:09 Sodium Bicarbonate (Na Bicarb 8.4% Syg) 50 ml ONCE STAT IV 11/20/16 07:52 11/20/16 07:53 DC 11/20/16 08:04 Calcium Gluconate (Ca Gluc) 1 gm ONCE STAT IV 11/20/16 07:52 11/20/16 07:53 DC 11/20/16 08:01 Hydromorphone HCl (Dilaudid) 1 mg ONCE STAT IV 11/20/16 08:13 11/20/16 08:14 DC 11/20/16 08:17 Ondansetron HCl (Zofran Inj) 4 mg ONCE STAT IV 11/20/16 08:13 11/20/16 08:14 DC 11/20/16 08:17 Albuterol (Proventil 0.5% (Neb)) 5 mg ONCE STAT NEB 11/20/16 08:33 11/20/16 08:35 DC 11/20/16 10:22 Ipratropium [place] (Atrovent 0.02% (Neb)) 0.5 mg ONCE STAT NEB 11/20/16 08:33 11/20/16 08:35 DC 11/20/16 10:22 Ondansetron HCl (Zofran Inj) 4 mg ER BRIDGE PRN IV NAUSEA AND/OR VOMITING 11/20/16 10:00 11/21/16 09:59 Acetaminophen (Tylenol Tab) 650 mg ER BRIDGE PRN PO MILD PAIN/FEVER 11/20/16 10:00 11/21/16 09:59 Lidocaine (Xylocaine 1% (Mpf)) 5 ml STK-MED ONCE .ROUTE 11/20/16 09:41 11/20/16 09:42 DC 11/20/16 10:17 Procedures/MDM This patient presented to the emergency department with abdominal pain and dyspnea with a known history of ascites and was seen and evaluated by myself. My differential diagnosis included but was not limited to abdominal aortic aneurysm, appendicitis, pancreatitis, perforated peptic ulcer, perforated viscus , Boerhaaves syndrome or visceral pain such as diverticulitis, DKA, esophagitis , hepatitis or bowel obstruction. The patient was placed on a cardiac technologist, continuous pulse oximetry, and IV access was established by nursing staff. The patient received intravenous morphine and Zofran for analgesic control The patient had an ultrasound-guided paracentesis that was performed by the radiologist Dr. Jerome. Trans-parent fluid was removed of 8L. My clinical suspicion was low for spontaneous bacterial peritonitis. The patient does have a known history of congestive heart failure was complaining of mild dyspnea. Chest radiograph showed mild pulmonary vascular congestion and the patient received nebulizer treatments with improvement of his dyspnea. The patient was hyperkalemic with acute on chronic renal failure. To treat the elevated potassium of 6.0 the patient received Kayexalate, albuterol, Lasix, calcium bicarb and calcium gluconate. Dr. Arellano will be consulted as the patient will require emergent hemodialysis due to the hyperkalemia. Due to the worsening renal failure did feel the patient required admission for further evaluation and treatment of the hyperkalemia. The patient will be admitted to his primary care physician Dr. Castellanos in serious condition to the telemetry's floor. Critical Care: Time: 40 minutes Treatments/Evaluations: Close monitoring and treatment of unstable vital signs, cardiorespiratory, and neurologic status, while maintaining tight balance of fluid, respiratory, and cardiac interventions. Time does not include performing any of the above procedures Departure Diagnosis: Primary Impression: Ascites Qualified Code: R18.8 - Other ascites Additional Impressions: CHF (congestive heart failure) [id number] renal failure Hyperkalemia Condition: Serious REGINA SILVER Nov 20, 2016 09:27
[2016-11-20] MEDS ORDERED: LIDOCAINE 1% (MPF) 5 ML VIAL ONE (09:41)
[2016-11-20] MEDS ORDERED: ACETAMINOPHEN 325 MG TAB PO PRN (10:00)
[2016-11-20] MEDS ORDERED: ONDANSETRON 4 MG INJ IV PRN ×2 (10:00→12:00)
--- NOTE | 2016-11-20 10:37 | RADRPT ---
PROCEDURE: Ultrasound guided paracentesis. CLINICAL INDICATION: Ascites and shortness of breath. COMPARISON: 11/11/2016. TECHNIQUE: The risks, benefits, and alternatives were explained to the patient, including but not limited to bl eeding, infection, pain, visceral or vascular damage, shock, and . The patient understood the risks and the alternatives and wished to proceed with the procedure. Informed written consent was o btained. A procedural time out was performed. The patient's name, date of , and procedure to b e performed were verified. Utilizing ultrasound guidance, optimal location for entry to the peritoneal cavity was ascertained. The overlying skin was prepped and draped in the usual sterile fashion. Approximately 10 ml of 1% Xylocaine was injected locally for pain control. Using ultrasound guidance, an 8 [place] catheter wa s introduced into the peritoneal cavity in the right lower quadrant without difficulty. FINDINGS: Initial images demonstrate ascites. Approximately 8.5 liters of serous fluid was aspirated and disc arded. The patient tolerated the procedure well without complication. IMPRESSION: 1. Successful ultrasound-guided paracentesis. RPTAT: QQ .Neo Jerome MD, MD Date Time Electronically viewed and signed by .Neo Jerome MD, on 11/20/2016 10:37 .R/
[2016-11-20] MEDS ORDERED: ZOLPIDEM 5 MG TAB PO PRN (12:00)
[2016-11-20] MEDS ORDERED: NACL 0.9% 3 ML SYG IV SCH (12:00)
[2016-11-20] MEDS ORDERED: NITROGLYCERIN (SL) 0.4 MG TAB SL PRN (12:00)
--- NOTE | 2016-11-20 12:28 | RADRPT ---
PROCEDURE: US DVT. CLINICAL INDICATION: Bilateral lower extremity swelling. TECHNIQUE: Multiple longitudinal and transverse images of the bilateral lower extremity veins were obtained with merlos scale and color Doppler imaging. 2D grayscale measurements with compression, co vivienne Doppler flow, and augmentation was performed. The calf veins were interrogated as well. COMPARISON: No prior studies are available for comparison. FINDINGS: The bilateral common femoral, superficial femoral and popliteal veins are normally compressible thro ughout. Color flow demonstrates normal filling of the vessel. Normal waveforms are visualized and there is normal response to augmentation. The calf veins are visualized and are equally unremarkabl e. IMPRESSION: 1. No evidence of a deep vein thrombosis involving either lower extremity. RPTAT: A[facility] Physician Rachel Date Time Electronically viewed and signed by Physician Rachel on 11/20/2016 12:28 /
[2016-11-20] MEDS ORDERED: GLUCOSE GEL 15 GRAM TUBE BUCCAL PRN (12:30)
[2016-11-20] MEDS ORDERED: DEXTROSE 50% 50 ML SYRINGE IV PRN ×2 (12:30)
[2016-11-20] MEDS ORDERED: GLUCOSE GEL 15 GRAM TUBE PO PRN ×2 (12:30)
[2016-11-20] MEDS ORDERED: GLUCAGON 1 MG INJ IM PRN (12:30)
--- NOTE | 2016-11-20 13:12 | HP ---
DATE OF ADMISSION: 11/20/2016 CHIEF COMPLAINT: Shortness of breath and abdominal pain. HISTORY OF PRESENT ILLNESS: The patient is a 66-year-old male with history of coronary artery disea se status post CABG, pacemaker, patient with end-stage renal failure on dialysis. The patient state d that he had his last dialysis this Sunday on November 18. The patient with history of portal h ypertension and congestive heart failure. The patient presented to the emergency room with a disten ded abdomen due to recurrent ascites and patient underwent paracentesis with removal of 8.5 liters o f serous fluid. The patient also noted to have elevated potassium of 6 and was given Kayexalate. T he patient complained of increased bilateral lower extremities edema and shortness of breath. The p atient was also given Lasix and breathing treatment and the patient will be admitted for further sommer luation and management to telemetry floor. PAST MEDICAL HISTORY: Per HPI. PAST SURGICAL HISTORY: Status post CABG, status post right upper extremity AV shunt creation, statu s post AICD placement. FAMILY HISTORY: Noncontributory. SOCIAL HISTORY: Patient lives at home. The patient is a former smoker and a former alcohol user. The patient currently denies any tobacco use, denies any alcohol use, denies any illicit drug use. ALLERGIES: NO KNOWN ALLERGIES. CURRENT MEDICATIONS: 1. Aspirin. 2. Coreg. 3. Furosemide. 4. Levothyroxine. 5. Protonix. 6. Tamsulosin. 7. Atorvastatin. 8. Glipizide. REVIEW OF SYSTEMS: Negative unless what is mentioned in the HPI. The patient stated that he has a nonproductive cough. Denies any fever, chills, denies nausea, vomiting. PHYSICAL EXAMINATION: GENERAL: well-developed, well-nourished male, currently is awake, alert. VITAL SIGNS: Temperature is 97.6, pulse is 107, blood pressure 101/65, respiratory rate 18, oxygen saturation 99% on room air. HEENT: Head is atraumatic, normocephalic. Pupils equal, round, reactive to light and accommodation . Oral mucosa is pink, moist. NECK: Supple. JVD is present, no cervical lymphadenopathy. CHEST: Lungs are clear bilaterally, slightly diminished at the bases. CARDIOVASCULAR: Regular rhythm and rate, normal S1, S2. No murmurs, gallops, clicks, rubs noted. GENITOURINARY: The patient has a left chest permanent pacemaker with AICD. GASTROINTESTINAL: Abdomen is protuberant, soft, slightly distended, nontender. Bowel sounds presen t. No guarding, no rebound tenderness. SKIN: No rash, petechiae. EXTREMITIES: The patient has bilateral lower extremity edema, 3+. NEUROLOGIC: The patient is awake, alert and oriented x3. No focal deficits noted. Motor strength is 5/5 in all extremities. LABORATORY DATA: On admission, CBC: White blood cells 9.5, hemoglobin 10.5, hematocrit 30.5, plate lets 263. Chemistry: Sodium is 133, potassium 6.0, chloride 95, carbon dioxide 21, anion gap 23, B UN 76, creatinine 6.883, glucose 218. AST is 19, ALT is 26, alkaline phosphatase 221. A BNP is 29, 200. PT is 13.6, INR is 1.0408, PTT 32.2. ASSESSMENT AND PLAN: 1. Congestive heart failure exacerbation. 2. Ascites, status post paracentesis. 3. End-stage renal disease, hemodialysis-dependent. Will ask Dr. Maddox to see patient from nephrolog y standpoint. Will continue patient on hemodialysis. 4. Hyperkalemia. The patient is status post Kayexalate. Continue to monitor electrolytes and admi t to telemetry floor. We will ask Dr. Cee to see the patient in cardiology consultation. 5. Coronary artery disease status post coronary artery bypass graft. Continue patient on aspirin a nd Coreg. 6. Hypothyroidism. Continue Synthroid. 7. Diabetes mellitus type 2. Continue to monitor blood sugar with mild algorithm scale, NovoLog co verage. 8. We will continue Protonix for peptic ulcer disease prophylaxis. 9. We will obtain a bilateral lower extremity ultrasound to evaluate lower extremities edema. Further recommendations based on clinical course. Plan of care discussed with Dr. Bruno. Dictated By: DICKSON GROSSMAN MECHANICAL SUPERVISOR for DEMETRA BRUNO MD SR/NTS Conf#: [id number] DID#: [id number]
[2016-11-20] MEDS: INSULIN ASPART [NOVOLOG] 3 ML PEN SC SCH ×3 (13:13→21:00)
[2016-11-20] MEDS: morphine 2 MG INJ IV PRN ×2 (15:18→21:12)
--- NOTE | 2016-11-20 16:31 | CONS ---
Date/Time of Note Date/Time of Note DATE: 11/20/16 TIME: 16:28 Assessment/Plan Assessment/Plan Additional Assessment/Plan 66 yo Male with 1) ESRD on HD 2) Hyperkalemia 3) RT AVF Dysfunction 4) Anemia, Chronic Dx 5) Anasarca 6) Liver disease, Ascites S/P Parcentesis HD ordered, Will attempt HD through RT UE AVF Vascular Sx consulted for possible AVF dysfunction Will order Doppler of RUE AVF Also repeat K level now, pt did receive kayexalate in the ER Dry UF also ordered for tomorrow. Thank you for the opportunity to participate in the care of Mr Moreno Consultation Date/Type/Reason Admit Date/Time Nov 20, 2016 at 09:34 Date of Consultation: Nov 20, 2016 Type of Consultation: Nephrology Reason for Consultation ESRD Referring Provider: DEMETRA BRUNO MD Hx of Present Illness 66-year-old male with history of coronary artery disease status post CABG, pacemaker, patient with end-stage renal failure on dialysis. The patient stated that he had his last dialysis this Sunday on November 18. Pt is S/p Paracentesis and incidentally found to have hyperkalemia. Nephrology consulted for ESRD, HD. Constitutional: No requiring O2 Past Medical History Medical History: renal disease (ESRD) Past Surgical History Past Surgical Hx: other (AVF) Family History Significant Family History: no pertinent family hx Social History Alcohol Use: none Smoking Status: Former smoker Drug Use: none Exam/Review of Systems Vital Signs Vitals Vital Signs Date Time Temp Pulse Resp B/P Pulse Ox O2 Delivery O2 Flow Rate FiO2 11/20/16 16:14 98.2 87 20 83/59 100 11/20/16 15:01 Room Air 11/20/16 10:22 21 Exam Constitutional: alert, No distress ENMT: mucosa pink and moist Respiratory: clear to auscultation, No diminished breath sounds, No labored breathing Cardiovascular: edema, regular rate and rhythm Gastrointestinal: ascites, soft, No rebound or guarding Extremities: edema, No other (Very faint thrill.) 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: MEDICAL RECORDS SPECIALIST 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, nl mental status Skin: No diaphoresis Results Result Diagram: 11/20/16 0652 11/20/16 0652 Results 24 hrs Laboratory Tests Test 11/20/16 06:52 11/20/16 12:55 Activated Partial Thromboplast Time 32.2 Alanine Aminotransferase (ALT/SGPT) 26 Albumin 3.0 L Albumin/Globulin Ratio 0.76 Alkaline Phosphatase 221 H Anion Gap 23 H Aspartate Amino Transf (AST/SGOT) 19 B-Type Natriuretic Peptide 28631 H Basophils # 0.1 Basophils % 0.6 Blood Morphology Comment Blood Urea Nitrogen 76 H Calcium Level 8.3 L Carbon Dioxide Level 21 Chloride Level 95 L Creatinine 6.83 H Direct Bilirubin 0.00 Eosinophils # 0.1 Eosinophils % 1.3 Globulin 3.90 H Glucose Level 218 Hematocrit 30.5 L Hemoglobin 10.5 L INR International Normalized Ratio 1.04 Indirect Bilirubin 0.1 Lymphocytes # 0.9 Lymphocytes % 9.6 L Mean Corpuscular Hemoglobin 29.7 Mean Corpuscular Hemoglobin Concent 34.4 Mean Corpuscular Volume 86.1 Mean Platelet Volume 6.6 L Monocytes # 0.8 Monocytes % 8.8 Neutrophils # 7.6 H Neutrophils % 79.7 H Nucleated Red Blood Cells # 0.0 Nucleated Red Blood Cells % 0.0 Platelet Count 263 Potassium Level 6.0 H Prothrombin Time 13.6 Prothrombin Time Ratio 1.1 Red Blood Count 3.54 L Red Cell Distribution Width 22.4 H Sodium Level 133 L Total Bilirubin 0.1 L Total Protein 6.9 White Blood Count 9.5 # Bedside Glucose 309 H Medications Medications Current Medications Lorazepam (Ativan) 0.5 mg Q8H PRN PO ANXIETY; Start 11/20/16 at 12:00 Ondansetron HCl (Zofran Inj) 4 mg Q6H PRN IV NAUSEA AND/OR VOMITING; Start at 12:00 Aspirin (Aspirin) 81 mg DAILY PO ; Start 11/21/16 at 09:00 Nitroglycerin (Nitroglycerin (Sl Tab) 0.4 Mg) 1 tab Q5M PRN SL CHEST PAIN; Start 11/20/16 at 12:00 Acetaminophen (Tylenol Tab) 650 mg Q6H PRN PO PAIN LEVEL 1-3 OR FEVER; Start at 12:00 Morphine Sulfate (morphine) 2 mg Q4H PRN IV PAIN LEVEL 7-10 Last administered on 11/20/16t 15:18; Admin Dose 2 MG; Start 11/20/16 at 12:00 Zolpidem Tartrate (Ambien) 5 mg QHS PRN PO INSOMNIA; Start 11/20/16 at 12:00 Pantoprazole (Protonix Tab) 40 mg DAILY@06 PO ; Start 11/21/16 at 06:00 Atorvastatin Calcium (Lipitor) 20 mg QHS PO ; Start 11/20/16 at 21:00 Carvedilol (Coreg) 12.5 mg BID PO ; Start 11/20/16 at 21:00 Furosemide (Lasix) 20 mg BID PO ; Start 11/20/16 at 21:00 Tamsulosin HCl (Flomax) 0.4 mg DAILY PO ; Start 11/21/16 at 09:00 Miscellaneous Information 1 ea NOTE XX ; Start 11/20/16 at 12:30 Glucose (Glutose) 15 gm Q15M PRN PO DECREASED GLUCOSE; Start 11/20/16 at 12:30 Glucose (Glutose) 22.5 gm Q15M PRN PO DECREASED GLUCOSE; Start 11/20/16 at 12: 30 Dextrose (D50w Syringe) 25 ml Q15M PRN IV DECREASED GLUCOSE; Start 11/20/16 at 12:30 Dextrose (D50w Syringe) 50 ml Q15M PRN IV DECREASED GLUCOSE; Start 11/20/16 at 12:30 Glucagon (Glucagen) 1 mg Q15M PRN IM DECREASED GLUCOSE; Start 11/20/16 at 12:30 Glucose (Glutose) 15 gm Q15M PRN BUCCAL DECREASED GLUCOSE; Start 11/20/16 at 12 :30 Procedures Procedures PROCEDURE: Ultrasound guided paracentesis. CLINICAL INDICATION: Ascites and shortness of breath. COMPARISON: 11/11/2016. TECHNIQUE: The risks, benefits, and alternatives were explained to the patient, including but not limited to bleeding, infection, pain, visceral or vascular damage, shock , and . The patient understood the risks and the alternatives and wished to proceed with the procedure. Informed written consent was obtained. A procedural time out was performed. The patient's name, date of , and procedure to be performed were verified. Utilizing ultrasound guidance, optimal location for entry to the peritoneal cavity was ascertained. The overlying skin was prepped and draped in the usual sterile fashion. Approximately 10 ml of 1% Xylocaine was injected locally for pain control. Using ultrasound guidance, an 8 Danish catheter was introduced into the peritoneal cavity in the right lower quadrant without difficulty. FINDINGS: Initial images demonstrate ascites. Approximately 8.5 liters of serous fluid was aspirated and discarded. The patient tolerated the procedure well without complication. IMPRESSION: 1. Successful ultrasound-guided paracentesis. RPTAT: QQ .Neo Jerome MD, MD Date Time Electronically viewed and signed by .Neo Jerome MD, MD on 11/20/2016 10:37 PARRISH DIEGO MD Nov 20, 2016 16:31
[2016-11-20 17:25] LABS: POTASSIUM 4.7 mmol/L (3.5-5.1)
[2016-11-20 17:28] LABS: CREATININE 6.62 mg/dl (0.61-1.24)
[2016-11-20 17:29] LABS: CALCIUM 7.6 mg/dl (8.4-10.2)
--- NOTE | 2016-11-20 17:46 | CONS ---
Date/Time of Note Date/Time of Note DATE: 11/20/16 TIME: 17:44 Assessment/Plan Assessment/Plan Additional Assessment/Plan 1. Congestive heart failure exacerbation with severe cardiomyopathy - followed by [facility] CHF service and no trasplant 2. Ascites, status post paracentesis. 3. End-stage renal disease, hemodialysis-dependent. patient on hemodialysis. 4. Hyperkalemia. The patient is status post Kayexalate. Continue to monitor electrolytes and admit to telemetry floor. 5. Coronary artery disease status post coronary artery bypass graft. Continue patient on aspirin and Coreg. 6. Hypothyroidism. Continue Synthroid. 7. Diabetes mellitus type 2. Continue to monitor blood sugar with mild algorithm scale, NovoLog coverage. Consultation Date/Type/Reason Admit Date/Time Nov 20, 2016 at 09:34 Hx of Present Illness The patient is a 66-year-old male with history of coronary artery disease status post CABG, pacemaker, patient with end-stage renal failure on dialysis. The patient stated that he had his last dialysis this Sunday on November 18. The patient with history of portal hypertension and congestive heart failure. The patient presented to the emergency room with a distended abdomen due to recurrent ascites and patient underwent paracentesis with removal of 8.5 liters of serous fluid. The patient also noted to have elevated potassium of 6 and was given Kayexalate. The patient complained of increased bilateral lower extremities edema and shortness of breath. The patient was also given Lasix and breathing treatment and the patient will be admitted for further evaluation and management to telemetry floor. Constitutional: No requiring O2 Past Medical History Medical History: renal disease Past Surgical History Past Surgical Hx: other (AVF) Social History Alcohol Use: none Smoking Status: Former smoker Drug Use: none Exam/Review of Systems Vital Signs Vitals Vital Signs Date Time Temp Pulse Resp B/P Pulse Ox O2 Delivery O2 Flow Rate FiO2 11/20/16 17:07 87 11/20/16 16:14 98.2 20 83/59 100 11/20/16 15:01 Room Air 11/20/16 10:22 21 Results Result Diagram: 11/20/16 0652 11/20/16 1700 Results 24 hrs Laboratory Tests Test 11/20/16 06:52 11/20/16 12:55 11/20/16 17:00 11/20/16 17:22 Activated Partial Thromboplast Time 32.2 Alanine Aminotransferase (ALT/SGPT) 26 Albumin 3.0 L Albumin/Globulin Ratio 0.76 Alkaline Phosphatase 221 H Anion Gap 23 H 22 H Aspartate Amino Transf (AST/SGOT) 19 B-Type Natriuretic Peptide 28258 H Basophils # 0.1 Basophils % 0.6 Blood Morphology Comment Blood Urea Nitrogen 76 H 78 H Calcium Level 8.3 L 7.6 L Carbon Dioxide Level 21 19 L Chloride Level 95 L 93 L Creatinine 6.83 H 6.62 H Direct Bilirubin 0.00 Eosinophils # 0.1 Eosinophils % 1.3 Globulin 3.90 H Glucose Level 218 254 H Hematocrit 30.5 L Hemoglobin 10.5 L INR International Normalized Ratio 1.04 Indirect Bilirubin 0.1 Lymphocytes # 0.9 Lymphocytes % 9.6 L Mean Corpuscular Hemoglobin 29.7 Mean Corpuscular Hemoglobin Concent 34.4 Mean Corpuscular Volume 86.1 Mean Platelet Volume 6.6 L Monocytes # 0.8 Monocytes % 8.8 Neutrophils # 7.6 H Neutrophils % 79.7 H Nucleated Red Blood Cells # 0.0 Nucleated Red Blood Cells % 0.0 Platelet Count 263 Potassium Level 6.0 H 4.7 Prothrombin Time 13.6 Prothrombin Time Ratio 1.1 Red Blood Count 3.54 L Red Cell Distribution Width 22.4 H Sodium Level 133 L 129 L Total Bilirubin 0.1 L Total Protein 6.9 White Blood Count 9.5 # Bedside Glucose 309 H 276 H Medications Medications Current Medications Lorazepam (Ativan) 0.5 mg Q8H PRN PO ANXIETY; Start 11/20/16 at 12:00 Ondansetron HCl (Zofran Inj) 4 mg Q6H PRN IV NAUSEA AND/OR VOMITING; Start at 12:00 Aspirin (Aspirin) 81 mg DAILY PO ; Start 11/21/16 at 09:00 Nitroglycerin (Nitroglycerin (Sl Tab) 0.4 Mg) 1 tab Q5M PRN SL CHEST PAIN; Start 11/20/16 at 12:00 Acetaminophen (Tylenol Tab) 650 mg Q6H PRN PO PAIN LEVEL 1-3 OR FEVER; Start at 12:00 Morphine Sulfate (morphine) 2 mg Q4H PRN IV PAIN LEVEL 7-10 Last administered on 11/20/16t 15:18; Admin Dose 2 MG; Start 11/20/16 at 12:00 Zolpidem Tartrate (Ambien) 5 mg QHS PRN PO INSOMNIA; Start 11/20/16 at 12:00 Pantoprazole (Protonix Tab) 40 mg DAILY@06 PO ; Start 11/21/16 at 06:00 Atorvastatin Calcium (Lipitor) 20 mg QHS PO ; Start 11/20/16 at 21:00 Carvedilol (Coreg) 12.5 mg BID PO ; Start 11/20/16 at 21:00 Furosemide (Lasix) 20 mg BID PO ; Start 11/20/16 at 21:00 Tamsulosin HCl (Flomax) 0.4 mg DAILY PO ; Start 11/21/16 at 09:00 Miscellaneous Information 1 ea NOTE XX ; Start 11/20/16 at 12:30 Glucose (Glutose) 15 gm Q15M PRN PO DECREASED GLUCOSE; Start 11/20/16 at 12:30 Glucose (Glutose) 22.5 gm Q15M PRN PO DECREASED GLUCOSE; Start 11/20/16 at 12: 30 Dextrose (D50w Syringe) 25 ml Q15M PRN IV DECREASED GLUCOSE; Start 11/20/16 at 12:30 Dextrose (D50w Syringe) 50 ml Q15M PRN IV DECREASED GLUCOSE; Start 11/20/16 at 12:30 Glucagon (Glucagen) 1 mg Q15M PRN IM DECREASED GLUCOSE; Start 11/20/16 at 12:30 Glucose (Glutose) 15 gm Q15M PRN BUCCAL DECREASED GLUCOSE; Start 11/20/16 at 12 :30 BERNABE JOYCE MD Nov 20, 2016 17:46
[2016-11-20] MEDS ORDERED: ALBUMIN HUMAN 25% 100 ML IV ONE (18:30)
[2016-11-20] MEDS: FUROSEMIDE 20 MG TAB PO SCH (21:00)
[2016-11-20] MEDS: ATORVASTATIN 20 MG TAB PO SCH (21:08)
--- NOTE | 2016-11-20 21:20 | CONS ---
DATE OF ADMISSION: 11/20/2016 DATE OF CONSULTATION: TYPE OF CONSULTATION: Gastroenterology. REFERRING PHYSICIAN: Dr. Demetra Bruno REASON FOR CONSULTATION: Ascites. HISTORY OF PRESENT ILLNESS: A 66-year-old male with coronary artery disease status post coronary ar dora bypass graft, pacemaker, end-stage renal disease on dialysis, came to the hospital for shortnes s of breath. The patient also has a history of portal hypertension and CHF. His abdomen was disten ded. The patient underwent paracentesis, 8.5 liters of fluid was removed. He was also given Kayexa late for hyperkalemia and now he feels comfortable. Breathing is much better. No GI bleeding, no c hest pain. PAST MEDICAL HISTORY: Status post AICD, coronary artery bypass graft. SOCIAL HISTORY: Lives alone. Former smoker and alcohol user. MEDICATIONS: All reviewed. He is on: 1. Glipizide. 2. Coreg. 3. Aspirin. 4. Levothyroxine. 5. ____. 6. Tamsulosin. REVIEW OF SYSTEMS: Negative. PHYSICAL EXAMINATION: GENERAL: Moderately built, nourished, not in distress. VITAL SIGNS: Stable. HEENT: Unremarkable. NECK: Supple. No thyromegaly, no lymphadenopathy. CARDIOVASCULAR: No murmur, gallop, or click. LUNGS: Clear. ABDOMEN: Still has ascites. EXTREMITIES: 1 to 2+ edema. CENTRAL NERVOUS SYSTEM: Grossly within normal limits. IMPRESSION: 1. Congestive heart failure, status post automatic implantable cardioverter-defibrillator. 2. End-stage renal disease on dialysis. 3. Coronary artery disease status post coronary artery bypass graft. 4. Diabetes mellitus. 5. Hypothyroidism. 6. Ascites. 7. Anemia. 8. Mild elevation of alkaline phosphatase. 9. Cirrhosis of liver with portal hypertension. PLAN: 1. At this point, is to continue with dialysis and take out more fluid during dialysis. 2. Paracentesis on a need basis under the cover of albumin. 3. Continue all his medication. 4. The patient is not a candidate for TIPS given his renal failure and cardiomyopathy. 5. He has refractory ascites, which would respond only to liver transplant. 6. We also cannot totally rule out hepatopulmonary syndrome. Dictated By: LOR DURAN/RAYNA Conf#: [id number] DID#: [id number] CC: LOR MASON MD; DEMETRA BRUNO MD;*[facility]*
[2016-11-21] VITALS (20 sets, daily range): BP systolic 76–113; BP diastolic 35–67; PULSE 68–119; RESP 18–20
[2016-11-21] MEDS: morphine 2 MG INJ IV PRN ×3 (02:46→20:20)
[2016-11-21] MEDS: PANTOPRAZOLE (EC) 40 MG TAB PO SCH (06:09)
[2016-11-21] MEDS ORDERED: LEVOTHYROXINE 100 MCG TAB PO SCH (07:00)
--- NOTE | 2016-11-21 07:40 | CONS ---
Date/Time of Note Date/Time of Note DATE: 11/21/16 TIME: 07:37 Assessment/Plan Assessment/Plan Additional Assessment/Plan Dysfunctional RUE AVF Plan: Appreciate medical and renal management Will plan for RUE AVF fistulogram w/ possible intervention and possible permacath placement today - indications, risks and benefits d/w pt who understood and agreed to proceed Thank you and please call with questions Consultation Date/Type/Reason Admit Date/Time Nov 20, 2016 at 09:34 Date of Consultation: Nov 21, 2016 Reason for Consultation Dysfunctional RUE AVF Referring Provider: PARRISH DIEGO MD Hx of Present Illness 66M w/ DM, L chest pacer/AICD s/p CABG and ESRD on HD via RUE ACF s/p paracentesis now w/ AVF dysfunction. Had HD incomplete run yesterday evening. RUE AVF created by Dr. Garber 04/2016, pt last saw Dr Garber in 06/2016. He denies any issues with right hand. Constitutional: improved, No requiring O2 Eyes: no complaints ENT: no complaints Respiratory: no complaints Gastrointestinal: other (Improved post-paracentesis) Neurologic: no complaints Past Medical History Medical History: congestive heart failure, coronary artery disease, diabetes, hypothyroid, renal disease (ESRD), other (Portal HTN) Past Surgical History Past Surgical Hx: other (RUE AVF, CABG, L chest AICD) Social History Alcohol Use: sober Smoking Status: Former smoker Drug Use: none Exam/Review of Systems Vital Signs Vitals Vital Signs Date Time Temp Pulse Resp B/P Pulse Ox O2 Delivery O2 Flow Rate FiO2 11/21/16 04:33 111 11/21/16 04:03 98.0 18 87/54 98 11/20/16 15:01 Room Air 11/20/16 10:22 21 Intake and Output 11/20/16 11/20/16 11/21/16 15:00 23:00 07:00 Intake Total 640 ml 600 ml Output Total 1700 ml Balance -1060 ml 600 ml Exam Gen: AAOx3, NAD Neck: supple Heart: Reg; L chest AICD Lungs: clear Abd: soft, NT, distension Extr: palpable brachial arteries b/l; RUE AVF without thrill; no edema Results Result Diagram: 11/20/16 0652 11/20/16 1700 Results 24 hrs Laboratory Tests Test 11/20/16 12:55 11/20/16 17:00 11/20/16 17:22 11/20/16 21:05 Bedside Glucose 309 H 276 H 150 Anion Gap 22 H Blood Urea Nitrogen 78 H Calcium Level 7.6 L Carbon Dioxide Level 19 L Chloride Level 93 L Creatinine 6.62 H Glucose Level 254 H Potassium Level 4.7 Sodium Level 129 L Medications Medications Current Medications Lorazepam (Ativan) 0.5 mg Q8H PRN PO ANXIETY; Start 11/20/16 at 12:00 Ondansetron HCl (Zofran Inj) 4 mg Q6H PRN IV NAUSEA AND/OR VOMITING; Start at 12:00 Aspirin (Aspirin) 81 mg DAILY PO ; Start 11/21/16 at 09:00 Nitroglycerin (Nitroglycerin (Sl Tab) 0.4 Mg) 1 tab Q5M PRN SL CHEST PAIN; Start 11/20/16 at 12:00 Acetaminophen (Tylenol Tab) 650 mg Q6H PRN PO PAIN LEVEL 1-3 OR FEVER; Start at 12:00 Morphine Sulfate (morphine) 2 mg Q4H PRN IV PAIN LEVEL 7-10 Last administered on 11/21/16 06:57; Admin Dose 2 MG; Start 11/20/16 at 12:00 Zolpidem Tartrate (Ambien) 5 mg QHS PRN PO INSOMNIA; Start 11/20/16 at 12:00 Pantoprazole (Protonix Tab) 40 mg DAILY@06 PO Last administered on 11/21/16 06 :09; Admin Dose 40 MG; Start 11/21/16 at 06:00 Atorvastatin Calcium (Lipitor) 20 mg QHS PO Last administered on 11/20/16 21: 08; Admin Dose 20 MG; Start 11/20/16 at 21:00 Carvedilol (Coreg) 12.5 mg BID PO ; Start 11/20/16 at 21:00 Furosemide (Lasix) 20 mg BID PO ; Start 11/20/16 at 21:00 Tamsulosin HCl (Flomax) 0.4 mg DAILY PO ; Start 11/21/16 at 09:00 Miscellaneous Information 1 ea NOTE XX ; Start 11/20/16 at 12:30 Glucose (Glutose) 15 gm Q15M PRN PO DECREASED GLUCOSE; Start 11/20/16 at 12:30 Glucose (Glutose) 22.5 gm Q15M PRN PO DECREASED GLUCOSE; Start 11/20/16 at 12: 30 Dextrose (D50w Syringe) 25 ml Q15M PRN IV DECREASED GLUCOSE; Start 11/20/16 at 12:30 Dextrose (D50w Syringe) 50 ml Q15M PRN IV DECREASED GLUCOSE; Start 11/20/16 at 12:30 Glucagon (Glucagen) 1 mg Q15M PRN IM DECREASED GLUCOSE; Start 11/20/16 at 12:30 Glucose (Glutose) 15 gm Q15M PRN BUCCAL DECREASED GLUCOSE; Start 11/20/16 at 12 :30 LISA GUARDADO MD Nov 21, 2016 07:40 LISA GUARDADO MD Nov 21, 2016 07:40
[2016-11-21] MEDS: INSULIN ASPART [NOVOLOG] 3 ML PEN SC SCH ×4 (07:45→22:01)
[2016-11-21] MEDS: ASPIRIN 81 MG TAB PO SCH (08:32)
[2016-11-21] MEDS: TAMSULOSIN (SR) 0.4 MG CAP PO SCH (08:32)
[2016-11-21] MEDS: FUROSEMIDE 20 MG TAB PO SCH ×2 (08:32→21:00)
[2016-11-21 08:40] LABS: BASOPHILS % 0.5 % (0.0-2.0); EOSINOPHILS # 0.2 10^3/ul (0.0-0.5); EOSINOPHILS % 2.1 % (0.0-7.0); HEMOGLOBIN 9.4 g/dl (14.0-18.0); LYMPHOCYTES # 0.8 10^3/ul (0.8-2.9); LYMPHOCYTES % 9.5 % (15.0-51.0); MEAN CORPUSCULAR HEMOGLOBIN 29.6 pg (29.0-33.0); MEAN CORPUSCULAR HGB CONC 33.5 g/dl (32.0-37.0); MEAN CORPUSCULAR VOLUME 88.3 fl (82.0-101.0); MEAN PLATELET VOLUME 6.5 fl (7.4-10.4); MONOCYTE # 0.8 10^3/ul (0.3-0.9); NEUTROPHIL # 6.7 10^3/ul (1.6-7.5); NEUTROPHILS % 78.9 % (39.0-77.0); PLATELET COUNT 200 10^3/UL (140-440); RED BLOOD COUNT 3.17 10^6/ul (4.70-6.10); RED CELL DISTRIBUTION WIDTH 22.7 % (11.5-14.5); UNCORRECTED WBC 8.5 10^3/ul (4.8-10.8); WHITE BLOOD COUNT 8.5 10^3/ul (4.8-10.8)
[2016-11-21 08:52] LABS: CONDITION 1; LH ANALYZER COMMENTS 1
[2016-11-21 09:04] LABS: ALBUMIN 2.5 g/dl (3.3-4.9)
[2016-11-21 09:05] LABS: POTASSIUM 5.3 mmol/L (3.5-5.1)
[2016-11-21 09:07] LABS: ALBUMIN/GLOBULIN RATIO 0.86; CREATININE 6.32 mg/dl (0.61-1.24); TOTAL PROTEIN 5.4 g/dl (6.1-8.1)
[2016-11-21 09:08] LABS: CALCIUM 7.3 mg/dl (8.4-10.2)
[2016-11-21] MEDS ORDERED: ALBUMIN HUMAN 25% 100 ML IV ONE ×2 (10:00→11:00)
--- NOTE | 2016-11-21 10:00 | RADRPT ---
PROCEDURE: US right upper extremity AV fistula/graft CLINICAL INDICATION: Renal failure TECHNIQUE: Multiple sonographic images of the right upper extremity arteries, veins and hemodialys is access was obtained utilizing grayscale, color-flow, compressive sonography and doppler imaging. The images were reviewed on a PACS workstation. COMPARISON: None. FINDINGS: There is a right upper extremity AV fistula which is widely patent. The right subclavian vein is patent. Velocities, and measurements were obtained: Upper outflow vein: 47 cm/s Mid outflow vein: 22 cm/s Lower outflow vein: 22 cm/s Arterial anastomosis / proximal fistula: 222-401 cm/s IMPRESSION: Patent right upper extremity AV fistula with decreased velocities throughout the fistula. Possible stenosis in the proximal aspect of the fistula/arterial anastomosis. RPTAT: AA .Skyler Wilde MD, Date Time Electronically viewed and signed by .Skyler Wilde MD, MD on 11/21/2016 10:00 .S/
--- NOTE | 2016-11-21 11:48 | CONS ---
Date/Time of Note Date/Time of Note DATE: 11/21/16 TIME: 11:47 Assessment/Plan Assessment/Plan Additional Assessment/Plan 66 yo Male with 1) ESRD on HD 2) Hyperkalemia 3) RT AVF Dysfunction 4) Anemia, Chronic Dx 5) Anasarca 6) Liver disease, Ascites S/P Parcentesis 7) Hyponatremia On HD Stable, Cont current treatment Repeat Chemistry tomorrow am Appreciate Vascular Sx recommendation and treatment plan NO need for Bc catheter at this time. Recommend Fluid Restricted diet. Consultation Date/Type/Reason Admit Date/Time Nov 20, 2016 at 09:34 Initial Consult Date 11/21/16 Type of Consultation: Nephrology Referring Provider: PARRISH DIEGO MD 24 HR Interval Summary Free Text/Dictation Pt on HD, No new complaint, Had HD yesterday. Constitutional: No requiring O2 Exam/Review of Systems Vital Signs Vitals Vital Signs Date Time Temp Pulse Resp B/P Pulse Ox O2 Delivery O2 Flow Rate FiO2 11/21/16 11:36 97.7 107 18 102/37 100 11/20/16 15:01 Room Air 11/20/16 10:22 21 Intake and Output 11/20/16 11/20/16 11/21/16 15:00 23:00 07:00 Intake Total 640 ml 600 ml Output Total 1700 ml Balance -1060 ml 600 ml Exam Constitutional: No distress Head: atraumatic Respiratory: crackles/rales, No labored breathing Cardiovascular: edema, regular rate and rhythm Gastrointestinal: ascites, soft Extremities: pitting pedal edema 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: INTER[employer] MARKETING [employer]IST 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, No confused Skin: No diaphoresis Results Result Diagram: 11/21/16 0659 11/21/16 0650 Results 24 hrs Laboratory Tests Test 11/20/16 12:55 11/20/16 17:00 11/20/16 17:22 11/20/16 21:05 Bedside Glucose 309 H 276 H 150 Anion Gap 22 H Blood Urea Nitrogen 78 H Calcium Level 7.6 L Carbon Dioxide Level 19 L Chloride Level 93 L Creatinine 6.62 H Glucose Level 254 H Potassium Level 4.7 Sodium Level 129 L Test 11/21/16 06:50 11/21/16 06:59 11/21/16 07:42 Alanine Aminotransferase (ALT/SGPT) 26 Albumin 2.5 L Albumin/Globulin Ratio 0.86 Alkaline Phosphatase 162 H Anion Gap 20 H Aspartate Amino Transf (AST/SGOT) 25 Blood Urea Nitrogen 75 H Calcium Level 7.3 L Carbon Dioxide Level 19 L Chloride Level 93 L Creatinine 6.32 H Direct Bilirubin 0.00 Globulin 2.90 Glucose Level 156 Indirect Bilirubin 0.0 Magnesium Level 2.0 Potassium Level 5.3 H Sodium Level 127 L Thyroid Stimulating Hormone (TSH) 13.000 H Total Bilirubin 0.0 L Total Protein 5.4 #L Basophils # 0.0 Basophils % 0.5 Blood Morphology Comment Eosinophils # 0.2 Eosinophils % 2.1 Hematocrit 28.0 L Hemoglobin 9.4 L Lymphocytes # 0.8 Lymphocytes % 9.5 L Mean Corpuscular Hemoglobin 29.6 Mean Corpuscular Hemoglobin Concent 33.5 Mean Corpuscular Volume 88.3 Mean Platelet Volume 6.5 L Monocytes # 0.8 Monocytes % 9.0 Neutrophils # 6.7 Neutrophils % 78.9 H Nucleated Red Blood Cells # 0.0 Nucleated Red Blood Cells % 0.0 Platelet Count 200 # Red Blood Count 3.17 L Red Cell Distribution Width 22.7 H White Blood Count 8.5 Bedside Glucose 180 Medications Medications Current Medications Lorazepam (Ativan) 0.5 mg Q8H PRN PO ANXIETY; Start 11/20/16 at 12:00 Ondansetron HCl (Zofran Inj) 4 mg Q6H PRN IV NAUSEA AND/OR VOMITING; Start at 12:00 Aspirin (Aspirin) 81 mg DAILY PO Last administered on 11/21/16 08:32; Admin Dose 81 MG; Start 11/21/16 at 09:00 Nitroglycerin (Nitroglycerin (Sl Tab) 0.4 Mg) 1 tab Q5M PRN SL CHEST PAIN; Start 11/20/16 at 12:00 Acetaminophen (Tylenol Tab) 650 mg Q6H PRN PO PAIN LEVEL 1-3 OR FEVER; Start at 12:00 Morphine Sulfate (morphine) 2 mg Q4H PRN IV PAIN LEVEL 7-10 Last administered on 11/21/16 06:57; Admin Dose 2 MG; Start 11/20/16 at 12:00 Zolpidem Tartrate (Ambien) 5 mg QHS PRN PO INSOMNIA; Start 11/20/16 at 12:00 Pantoprazole (Protonix Tab) 40 mg DAILY@06 PO Last administered on 11/21/16 06 :09; Admin Dose 40 MG; Start 11/21/16 at 06:00 Atorvastatin Calcium (Lipitor) 20 mg QHS PO Last administered on 11/20/16 21: 08; Admin Dose 20 MG; Start 11/20/16 at 21:00 Carvedilol (Coreg) 12.5 mg BID PO ; Start 11/20/16 at 21:00 Furosemide (Lasix) 20 mg BID PO ; Start 11/20/16 at 21:00 Tamsulosin HCl (Flomax) 0.4 mg DAILY PO Last administered on 11/21/16 08:32; Admin Dose 0.4 MG; Start 11/21/16 at 09:00 Miscellaneous Information 1 ea NOTE XX ; Start 11/20/16 at 12:30 Glucose (Glutose) 15 gm Q15M PRN PO DECREASED GLUCOSE; Start 11/20/16 at 12:30 Glucose (Glutose) 22.5 gm Q15M PRN PO DECREASED GLUCOSE; Start 11/20/16 at 12: 30 Dextrose (D50w Syringe) 25 ml Q15M PRN IV DECREASED GLUCOSE; Start 11/20/16 at 12:30 Dextrose (D50w Syringe) 50 ml Q15M PRN IV DECREASED GLUCOSE; Start 11/20/16 at 12:30 Glucagon (Glucagen) 1 mg Q15M PRN IM DECREASED GLUCOSE; Start 11/20/16 at 12:30 Glucose 15 gm 15 gm Q15M PRN BUCCAL DECREASED GLUCOSE; Start 11/20/16 at 12:30 Albumin Human (Albumin Human 25%) 100 ml @ 100 mls/hr ONCE ONCE IV ; Start at 11:00; Stop 11/21/16 at 11:59 Procedures Procedures PROCEDURE: US right upper extremity AV fistula/graft CLINICAL INDICATION: Renal failure TECHNIQUE: Multiple sonographic images of the right upper extremity arteries, veins and hemodialysis access was obtained utilizing grayscale, color-flow, compressive sonography and doppler imaging. The images were reviewed on a PACS workstation. COMPARISON: None. FINDINGS: There is a right upper extremity AV fistula which is widely patent. The right subclavian vein is patent. Velocities, and measurements were obtained: Upper outflow vein: 47 cm/s Mid outflow vein: 22 cm/s Lower outflow vein: 22 cm/s Arterial anastomosis / proximal fistula: 222-401 cm/s IMPRESSION: Patent right upper extremity AV fistula with decreased velocities throughout the fistula. Possible stenosis in the proximal aspect of the fistula/arterial anastomosis. RPTAT: AA .Skyler Wilde MD, MD Date Time Electronically viewed and signed by .Skyler Wilde MD, MD on 11/21/2016 10: 00 PARRISH DIEGO MD Nov 21, 2016 11:48
[2016-11-21] MEDS ORDERED: HEPARIN 1000 UNITS/NS (A-LINE) 1,000 ML ONE (14:39)
[2016-11-21] MEDS ORDERED: FENTAnyl 50 MCG/ML VIAL ONE (14:39)
[2016-11-21] MEDS ORDERED: LIDOCAINE 1% (MDV) 20 ML INJ ONE (14:39)
[2016-11-21] MEDS ORDERED: IODIXANOL LOCM 100 ML BTL ONE (14:39)
[2016-11-21] MEDS ORDERED: MIDAZOLAM 1 MG/ML 2 ML INJ ONE (14:40)
--- NOTE | 2016-11-21 15:13 | PN ---
Date/Time of Note Date/Time of Note DATE: 11/21/16 TIME: 15:12 Assessment/Plan VTE Prophylaxis VTE Prophylaxis Intervention: SCD's Lines/Catheters IV [facility] Saline Lock Assessment/Plan Chief Complaint/Hosp Course ASSESSMENT AND PLAN: 1. Congestive heart failure exacerbation. Continue to remove fluids with hemodialysis. 2. Ascites, status post paracentesis. 3. End-stage renal disease, hemodialysis-dependent. Dr. Maddox is following from nephrology standpoint. Continue patient on hemodialysis. 4. Hyperkalemia. The patient is status post Kayexalate. Continue to monitor electrolytes and admit to telemetry floor. 5. Coronary artery disease status post coronary artery bypass graft. Continue patient on aspirin and Coreg. Dr. Lozoya is following from cardiology standpoint. 6. Hypothyroidism. TSH is 14, will increase Synthroid. 7. Diabetes mellitus type 2. Continue to monitor blood sugar with mild algorithm scale, NovoLog coverage. 8. Hemodialysis access, patient went for evaluation of AV fistula by Dr. Loco in vascular surgery was unable to undergo dialysis yesterday. Continue Protonix for peptic ulcer disease prophylaxis. Further recommendations based on clinical course. Plan of care discussed with Dr. Vick. Problems: Subjective 24 Hr Interval Summary Free Text/Dictation patient is in procedure lab for AV fistula eval and possible HD cath placement Exam/Review of Systems Vital Signs Vitals Vital Signs Date Time Temp Pulse Resp B/P Pulse Ox O2 Delivery O2 Flow Rate FiO2 11/21/16 13:00 96 11/21/16 13:00 18 11/21/16 11:36 97.7 102/37 100 11/20/16 15:01 Room Air 11/20/16 10:22 21 Intake and Output 11/20/16 11/20/16 11/21/16 15:00 23:00 07:00 Intake Total 640 ml 600 ml Output Total 1700 ml Balance -1060 ml 600 ml Results Result Diagram: 11/21/16 0659 11/21/16 0650 Results 24 hrs Laboratory Tests Test 11/20/16 17:00 11/20/16 17:22 11/20/16 21:05 11/21/16 06:50 Anion Gap 22 H 20 H Blood Urea Nitrogen 78 H 75 H Calcium Level 7.6 L 7.3 L Carbon Dioxide Level 19 L 19 L Chloride Level 93 L 93 L Creatinine 6.62 H 6.32 H Glucose Level 254 H 156 Potassium Level 4.7 5.3 H Sodium Level 129 L 127 L Bedside Glucose 276 H 150 Alanine Aminotransferase (ALT/SGPT) 26 Albumin 2.5 L Albumin/Globulin Ratio 0.86 Alkaline Phosphatase 162 H Aspartate Amino Transf (AST/SGOT) 25 Direct Bilirubin 0.00 Globulin 2.90 Indirect Bilirubin 0.0 Magnesium Level 2.0 Thyroid Stimulating Hormone (TSH) 13.000 H Total Bilirubin 0.0 L Total Protein 5.4 #L Test 11/21/16 06:59 11/21/16 07:42 11/21/16 12:00 Basophils # 0.0 Basophils % 0.5 Blood Morphology Comment Eosinophils # 0.2 Eosinophils % 2.1 Hematocrit 28.0 L Hemoglobin 9.4 L Lymphocytes # 0.8 Lymphocytes % 9.5 L Mean Corpuscular Hemoglobin 29.6 Mean Corpuscular Hemoglobin Concent 33.5 Mean Corpuscular Volume 88.3 Mean Platelet Volume 6.5 L Monocytes # 0.8 Monocytes % 9.0 Neutrophils # 6.7 Neutrophils % 78.9 H Nucleated Red Blood Cells # 0.0 Nucleated Red Blood Cells % 0.0 Platelet Count 200 # Red Blood Count 3.17 L Red Cell Distribution Width 22.7 H White Blood Count 8.5 Bedside Glucose 180 180 Medications Medications Current Medications Lorazepam (Ativan) 0.5 mg Q8H PRN PO ANXIETY; Start 11/20/16 at 12:00 Ondansetron HCl (Zofran Inj) 4 mg Q6H PRN IV NAUSEA AND/OR VOMITING; Start at 12:00 Aspirin (Aspirin) 81 mg DAILY PO Last administered on 11/21/16 08:32; Admin Dose 81 MG; Start 11/21/16 at 09:00 Nitroglycerin (Nitroglycerin (Sl Tab) 0.4 Mg) 1 tab Q5M PRN SL CHEST PAIN; Start 11/20/16 at 12:00 Acetaminophen (Tylenol Tab) 650 mg Q6H PRN PO PAIN LEVEL 1-3 OR FEVER; Start at 12:00 Morphine Sulfate (morphine) 2 mg Q4H PRN IV PAIN LEVEL 7-10 Last administered on 11/21/16 06:57; Admin Dose 2 MG; Start 11/20/16 at 12:00 Zolpidem Tartrate (Ambien) 5 mg QHS PRN PO INSOMNIA; Start 11/20/16 at 12:00 Pantoprazole (Protonix Tab) 40 mg DAILY@06 PO Last administered on 11/21/16 06 :09; Admin Dose 40 MG; Start 11/21/16 at 06:00 Atorvastatin Calcium (Lipitor) 20 mg QHS PO Last administered on 11/20/16 21: 08; Admin Dose 20 MG; Start 11/20/16 at 21:00 Carvedilol (Coreg) 12.5 mg BID PO ; Start 11/20/16 at 21:00 Furosemide (Lasix) 20 mg BID PO ; Start 11/20/16 at 21:00 Tamsulosin HCl (Flomax) 0.4 mg DAILY PO Last administered on 11/21/16 08:32; Admin Dose 0.4 MG; Start 11/21/16 at 09:00 Miscellaneous Information 1 ea NOTE XX ; Start 11/20/16 at 12:30 Glucose (Glutose) 15 gm Q15M PRN PO DECREASED GLUCOSE; Start 11/20/16 at 12:30 Glucose (Glutose) 22.5 gm Q15M PRN PO DECREASED GLUCOSE; Start 11/20/16 at 12: 30 Dextrose (D50w Syringe) 25 ml Q15M PRN IV DECREASED GLUCOSE; Start 11/20/16 at 12:30 Dextrose (D50w Syringe) 50 ml Q15M PRN IV DECREASED GLUCOSE; Start 11/20/16 at 12:30 Glucagon (Glucagen) 1 mg Q15M PRN IM DECREASED GLUCOSE; Start 11/20/16 at 12:30 Glucose (Glutose) 15 gm Q15M PRN BUCCAL DECREASED GLUCOSE; Start 11/20/16 at 12 :30 DICKSON GROSSMAN Nov 21, 2016 15:13
[2016-11-21] MEDS ORDERED: IODIXANOL LOCM 50 ML BTL ONE (15:41)
[2016-11-21] MEDS: ATORVASTATIN 20 MG TAB PO SCH (21:58)
--- NOTE | 2016-11-21 23:08 | RADRPT ---
PROCEDURE: XR Chest. CLINICAL INDICATION: Shortness of breath. TECHNIQUE: Single frontal view. COMPARISON: 11/11/2016. FINDINGS: There is mild interstitial disease bilaterally consistent with pulmonary edema, slightly worse than seen previously. The lungs are otherwise clear. The heart is enlarged. There are sternal wires. There is a biventricular permanent pacemaker/inter nal cardiac defibrillator combination device. There is no right pleural effusion. There is a small left pleural effusion. There is no pneumothorax. IMPRESSION: 1. Pulmonary edema, slightly worse than seen previously. 2. Cardiomegaly. 3. Previous median sternotomy. 4. Biventricular pacemaker/internal cardiac defibrillator. 5. Small left pleural effusion. RPTAT: QQ .Neo Jerome MD, MD Date Time Electronically viewed and signed by .Neo Jerome MD, MD on 11/21/2016 23:08 .R/
[2016-11-22] VITALS (14 sets, daily range): BP systolic 80–111; BP diastolic 20–72; PULSE 87–123; RESP 19–20
[2016-11-22] MEDS: morphine 2 MG INJ IV PRN ×5 (01:29→15:59)
[2016-11-22] MEDS: LEVOTHYROXINE 125 MCG TAB PO SCH (05:38)
[2016-11-22] MEDS: PANTOPRAZOLE (EC) 40 MG TAB PO SCH (05:38)
[2016-11-22 06:59] LABS: BASOPHILS % 0.5 % (0.0-2.0); EOSINOPHILS # 0.1 10^3/ul (0.0-0.5); EOSINOPHILS % 1.8 % (0.0-7.0); LYMPHOCYTES # 0.9 10^3/ul (0.8-2.9); LYMPHOCYTES % 10.9 % (15.0-51.0); MEAN CORPUSCULAR HEMOGLOBIN 29.6 pg (29.0-33.0); MEAN CORPUSCULAR HGB CONC 33.5 g/dl (32.0-37.0); MEAN CORPUSCULAR VOLUME 88.4 fl (82.0-101.0); MEAN PLATELET VOLUME 6.6 fl (7.4-10.4); MONOCYTE # 0.9 10^3/ul (0.3-0.9); MONOCYTES % 10.8 % (0.0-11.0); NEUTROPHIL # 6.2 10^3/ul (1.6-7.5); PLATELET COUNT 203 10^3/UL (140-440); RED BLOOD COUNT 3.05 10^6/ul (4.70-6.10); UNCORRECTED WBC 8.1 10^3/ul (4.8-10.8); WHITE BLOOD COUNT 8.1 10^3/ul (4.8-10.8)
[2016-11-22 07:02] LABS: CONDITION 1; LH ANALYZER COMMENTS 1; SUSPECT 1
[2016-11-22 07:30] LABS: POTASSIUM 5.9 mmol/L (3.5-5.1)
[2016-11-22 07:32] LABS: CREATININE 6.89 mg/dl (0.61-1.24)
[2016-11-22 07:33] LABS: CALCIUM 7.3 mg/dl (8.4-10.2)
[2016-11-22] MEDS: ASPIRIN 81 MG TAB PO SCH (09:05)
[2016-11-22] MEDS: FUROSEMIDE 20 MG TAB PO SCH ×2 (09:05→21:00)
[2016-11-22] MEDS: TAMSULOSIN (SR) 0.4 MG CAP PO SCH (09:05)
[2016-11-22] MEDS: INSULIN ASPART [NOVOLOG] 3 ML PEN SC SCH ×4 (09:06→22:09)
--- NOTE | 2016-11-22 12:34 | PN ---
Date/Time of Note Date/Time of Note DATE: 11/22/16 TIME: 12:30 Assessment/Plan VTE Prophylaxis VTE Prophylaxis Intervention: SCD's Lines/Catheters IV [facility] Type [facility] Peripheral IV Urinary Cath still in place: No Assessment/Plan Chief Complaint/Hosp Course ASSESSMENT AND PLAN: 1. Congestive heart failure exacerbation. Continue to remove fluids with hemodialysis. 2. Ascites, status post paracentesis. Patient was increased ascites today, paracentesis today. 3. End-stage renal disease, hemodialysis-dependent. Dr. Maddox is following from nephrology standpoint. Continue patient on hemodialysis. 4. Hyperkalemia. The patient is status post Kayexalate. Continue to monitor electrolytes and admit to telemetry floor. 5. Coronary artery disease status post coronary artery bypass graft. Continue patient on aspirin and Coreg. Dr. Cee is following from cardiology standpoint. 6. Hypothyroidism. TSH is 14, Synthroid increased to 125. 7. Diabetes mellitus type 2. Continue to monitor blood sugar with mild algorithm scale, NovoLog coverage. 8. Hemodialysis access, status post right AV fistulogram by Dr. Loco, vascular surgery on 11/21. Continue Protonix for peptic ulcer disease prophylaxis. Further recommendations based on clinical course. Plan of care discussed with Dr. Vick. Problems: Subjective 24 Hr Interval Summary Free Text/Dictation Patient is status post AV fistulogram yesterday, status post hemodialysis yesterday, patient complains of increased ascites, denies nausea vomiting. Exam/Review of Systems Vital Signs Vitals Vital Signs Date Time Temp Pulse Resp B/P Pulse Ox O2 Delivery O2 Flow Rate FiO2 11/22/16 12:21 107 11/22/16 11:30 97.9 20 105/68 98 11/20/16 15:01 Room Air 11/20/16 10:22 21 Intake and Output 11/21/16 11/21/16 11/22/16 15:00 23:00 07:00 Intake Total 500 ml 1100 ml 550 ml Output Total 2500 ml Balance -2000 ml 1100 ml 550 ml Exam GENERAL: well-developed, well-nourished male, currently is awake, alert. HEENT: Head is atraumatic, normocephalic. NECK: Supple. JVD is present, no cervical lymphadenopathy. CHEST: Lungs are clear bilaterally, slightly diminished at the bases. CARDIOVASCULAR: Regular rhythm and rate, normal S1, S2. No murmurs, gallops, clicks, rubs noted. The patient has a left chest permanent pacemaker with AICD. GASTROINTESTINAL: Abdomen is protuberant, soft, slightly distended, nontender. Bowel sounds present. No guarding, no rebound tenderness. SKIN: No rash, petechiae. EXTREMITIES: The patient has bilateral lower extremity edema, 3+. NEUROLOGIC: The patient is awake, alert and oriented x3. Results Result Diagram: 11/22/16 0555 11/22/16 0555 Results 24 hrs Laboratory Tests Test 11/21/16 17:20 11/21/16 21:55 11/22/16 01:54 11/22/16 05:55 Bedside Glucose 208 208 234 H Anion Gap 22 H Basophils # 0.0 Basophils % 0.5 Blood Morphology Comment Blood Urea Nitrogen 74 H Calcium Level 7.3 L Carbon Dioxide Level 21 Chloride Level 92 L Creatinine 6.89 H Eosinophils # 0.1 Eosinophils % 1.8 Glucose Level 149 Hematocrit 27.0 L Hemoglobin 9.0 L Lymphocytes # 0.9 Lymphocytes % 10.9 L Mean Corpuscular Hemoglobin 29.6 Mean Corpuscular Hemoglobin Concent 33.5 Mean Corpuscular Volume 88.4 Mean Platelet Volume 6.6 L Monocytes # 0.9 Monocytes % 10.8 Neutrophils # 6.2 Neutrophils % 76.0 Nucleated Red Blood Cells # 0.0 Nucleated Red Blood Cells % 0.0 Platelet Count 203 Potassium Level 5.9 H Red Blood Count 3.05 L Red Cell Distribution Width 22.0 H Sodium Level 129 L White Blood Count 8.1 Test 11/22/16 07:35 11/22/16 11:09 Bedside Glucose 212 319 H Medications Medications Current Medications Lorazepam (Ativan) 0.5 mg Q8H PRN PO ANXIETY; Start 11/20/16 at 12:00 Ondansetron HCl (Zofran Inj) 4 mg Q6H PRN IV NAUSEA AND/OR VOMITING; Start at 12:00 Aspirin (Aspirin) 81 mg DAILY PO Last administered on 11/22/16t 09:05; Admin Dose 81 MG; Start 11/21/16 at 09:00 Nitroglycerin (Nitroglycerin (Sl Tab) 0.4 Mg) 1 tab Q5M PRN SL CHEST PAIN; Start 11/20/16 at 12:00 Acetaminophen (Tylenol Tab) 650 mg Q6H PRN PO PAIN LEVEL 1-3 OR FEVER; Start at 12:00 Morphine Sulfate (morphine) 2 mg Q4H PRN IV PAIN LEVEL 7-10 Last administered on 11/22/16 11:18; Admin Dose 2 MG; Start 11/20/16 at 12:00 Zolpidem Tartrate (Ambien) 5 mg QHS PRN PO INSOMNIA; Start 11/20/16 at 12:00 Pantoprazole (Protonix Tab) 40 mg DAILY@06 PO Last administered on 11/22/16 05: 38; Admin Dose 40 MG; Start 11/21/16 at 06:00 Atorvastatin Calcium (Lipitor) 20 mg QHS PO Last administered on 11/21/16 21: 58; Admin Dose 20 MG; Start 11/20/16 at 21:00 Carvedilol (Coreg) 12.5 mg BID PO Last administered on 11/22/16 09:05; Admin Dose 12.5 MG; Start 11/20/16 at 21:00 Furosemide (Lasix) 20 mg BID PO Last administered on 11/22/16 09:05; Admin Dose 20 MG; Start 11/20/16 at 21:00 Tamsulosin HCl (Flomax) 0.4 mg DAILY PO Last administered on 11/22/16 09:05; Admin Dose 0.4 MG; Start 11/21/16 at 09:00 Miscellaneous Information 1 ea NOTE XX ; Start 11/20/16 at 12:30 Glucose (Glutose) 15 gm Q15M PRN PO DECREASED GLUCOSE; Start 11/20/16 at 12:30 Glucose (Glutose) 22.5 gm Q15M PRN PO DECREASED GLUCOSE; Start 11/20/16 at 12: 30 Dextrose (D50w Syringe) 25 ml Q15M PRN IV DECREASED GLUCOSE; Start 11/20/16 at 12:30 Dextrose (D50w Syringe) 50 ml Q15M PRN IV DECREASED GLUCOSE; Start 11/20/16 at 12:30 Glucagon (Glucagen) 1 mg Q15M PRN IM DECREASED GLUCOSE; Start 11/20/16 at 12:30 Glucose (Glutose) 15 gm Q15M PRN BUCCAL DECREASED GLUCOSE; Start 11/20/16 at 12 :30 Levothyroxine Sodium (Synthroid) 125 mcg DAILY@06 PO Last administered on t 05:38; Admin Dose 125 MCG; Start 11/22/16 at 06:00 DICKSON GROSSMAN Nov 22, 2016 12:33
[2016-11-22] MEDS ORDERED: morphine 2 MG INJ IV ONE (13:30)
--- NOTE | 2016-11-22 13:41 | OPR ---
DATE OF OPERATION: 11/21/2016 PREOPERATIVE DIAGNOSIS: End-stage renal disease, dysfunctional right upper extremity arteriovenous fistula. POSTOPERATIVE DIAGNOSIS: End-stage renal disease, dysfunctional right upper extremity arteriovenous fistula. PROCEDURE: Right upper extremity fistulogram, antegrade and retrograde access, venoplasty of severe inflow stenosis and outflow vein stenosis. SURGEON: Lisa Loco MD ANESTHESIA: Local. ESTIMATED BLOOD LOSS: Minimal. COMPLICATIONS: None. PREOPERATIVE INDICATIONS: This is a 66-year-old gentleman with end-stage renal disease and portal hypertension with CHF and now presents with dysfunctional right upper extremity arteriovenous fistula. The patient denies any issues with the right lower extremity and there is no edema. The indications, risks and benefits of the procedure were discussed with the patient who understood and agreed to proceed. DESCRIPTION OF PROCEDURE: Patient was properly identified and brought to the angiography suite and placed in the supine position. The right upper extremity was prepped and draped in the usual sterile fashion. Using ultrasound, evaluation of the fistula was performed and demonstrated overall patency; however, with scattered areas of thrombus. Initial antegrade access was obtained after injection of the skin and subcutaneous tissue with local anesthesia. This was done at the inflow vein around the AC fossa. This was done using ultrasound localization and a micropuncture needle. A micropuncture wire was then advanced into the fistula under fluoroscopy. A micropuncture sheath was placed. A fistulogram was then performed. This demonstrated a patent fistula body with stenotic areas with possible thrombus at the outflow vein around the shoulder. The central veins were patent. Compression maneuvers were performed to visualize the AV anastomosis which demonstrated a severely stenotic segment. Thus, given those findings, retrograde access was then obtained. This was done using ultrasound and a micropuncture needle or access at the proximal upper arm. Micropuncture wire was advanced and the micropuncture sheath was placed. A 0.035 floppy Glidewire was then advanced and a 6-[place] sheath was placed. The floppy Glidewire along with the Kumpe catheter were used to cross the stenotic lesion, and catheter was placed into the brachial artery. Angiography confirmed that the catheter was in the brachial artery. The wire was readvanced and a 4 x 60 mm balloon was advanced to the area of the lesion used for angioplasty. Angiography demonstrated improvement in luminal diameter and flow and there was zoroastrianism of pulsatile flow throughout the entire fistula. Angiography also noted that there was a stenotic area at the area of the retrograde access site. Given this along with the outflow vein stenotic area, it was decided to upsize the antegrade access to a 6-[place] sheath. This was done over a floppy Glidewire as well. A 6 x 60mm balloon was then advanced to the 2 areas in the fistula body and outflow vein. Venoplasty was then performed and afterwards angiography demonstrated that there was marked improvement in the luminal diameter and flow. The patient had persistent pulsatile flow; however, this may be secondary to his chronic congestive heart failure. Given these findings, the sheaths were then removed and the access sites were then controlled using 4-0 Monocryl sutures, along with manual compression. The patient tolerated the procedure well without any immediate complications and was transferred to recovery in stable condition. Dictated By: LISA PURCELL/RAYNA Conf#: [id number] DID#: [id number]
--- NOTE | 2016-11-22 14:18 | CONS ---
Date/Time of Note Date/Time of Note DATE: 11/22/16 TIME: 14:18 Assessment/Plan Assessment/Plan Additional Assessment/Plan IMPRESSION: 1. Congestive heart failure, status post automatic implantable cardioverter- defibrillator.feels better,no s.o.b 2. End-stage renal disease on dialysis. 3. Coronary artery disease status post coronary artery bypass graft. 4. Diabetes mellitus. 5. Hypothyroidism. 6. Ascites. 7. Anemia. 8. Mild elevation of alkaline phosphatase. 9. Cirrhosis of liver with portal hypertension. PLAN: 1. At this point, is to continue with dialysis and take out more fluid during dialysis. 2. Paracentesis on a need basis under the cover of albumin. 3. Continue all his medication. 4. The patient is not a candidate for TIPS given his renal failure and cardiomyopathy. 5. He has refractory ascites, which would respond only to liver transplant. Consultation Date/Type/Reason Admit Date/Time Nov 20, 2016 at 09:34 Initial Consult Date 11/21/16 Type of Consultation: Nephrology Referring Provider: PARRISH DIEGO MD 24 HR Interval Summary Constitutional: improved Exam/Review of Systems Vital Signs Vitals Vital Signs Date Time Temp Pulse Resp B/P Pulse Ox O2 Delivery O2 Flow Rate FiO2 11/22/16 12:21 107 11/22/16 11:30 97.9 20 105/68 98 11/20/16 15:01 Room Air 11/20/16 10:22 21 Intake and Output 11/21/16 11/21/16 11/22/16 15:00 23:00 07:00 Intake Total 500 ml 1100 ml 550 ml Output Total 2500 ml Balance -2000 ml 1100 ml 550 ml Exam Constitutional: alert, oriented, well developed Psych: nl mood/affect, no complaints Head: atraumatic, normocephalic Eyes: EOMI, PERRL, nl conjunctiva, nl lids, nl sclera ENMT: nl external ears & nose, nl lips & teeth, nl nasal mucosa & septum Neck: non-tender, supple Respiratory: clear to auscultation, normal air movement Cardiovascular: nl pulses, regular rate and rhythm Gastrointestinal: nl liver, spleen, non-tender, soft Musculoskeletal: nl extremities to inspection, nl gait and stance Extremities: normal pulses 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: REGIONAL EHS MANAGER 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, nl mental status, nl speech, nl strength Skin: nl turgor, No rash or lesions Lymph: nl lymph nodes Results Result Diagram: 11/22/16 0555 11/22/16 0555 Results 24 hrs Laboratory Tests Test 11/21/16 17:20 11/21/16 21:55 11/22/16 01:54 11/22/16 05:55 Bedside Glucose 208 208 234 H Anion Gap 22 H Basophils # 0.0 Basophils % 0.5 Blood Morphology Comment Blood Urea Nitrogen 74 H Calcium Level 7.3 L Carbon Dioxide Level 21 Chloride Level 92 L Creatinine 6.89 H Eosinophils # 0.1 Eosinophils % 1.8 Glucose Level 149 Hematocrit 27.0 L Hemoglobin 9.0 L Lymphocytes # 0.9 Lymphocytes % 10.9 L Mean Corpuscular Hemoglobin 29.6 Mean Corpuscular Hemoglobin Concent 33.5 Mean Corpuscular Volume 88.4 Mean Platelet Volume 6.6 L Monocytes # 0.9 Monocytes % 10.8 Neutrophils # 6.2 Neutrophils % 76.0 Nucleated Red Blood Cells # 0.0 Nucleated Red Blood Cells % 0.0 Platelet Count 203 Potassium Level 5.9 H Red Blood Count 3.05 L Red Cell Distribution Width 22.0 H Sodium Level 129 L White Blood Count 8.1 Test 11/22/16 07:35 11/22/16 11:09 Bedside Glucose 212 319 H Medications Medications Current Medications Lorazepam (Ativan) 0.5 mg Q8H PRN PO ANXIETY; Start 11/20/16 at 12:00 Ondansetron HCl (Zofran Inj) 4 mg Q6H PRN IV NAUSEA AND/OR VOMITING; Start at 12:00 Aspirin (Aspirin) 81 mg DAILY PO Last administered on 11/22/16 09:05; Admin Dose 81 MG; Start 11/21/16 at 09:00 Nitroglycerin (Nitroglycerin (Sl Tab) 0.4 Mg) 1 tab Q5M PRN SL CHEST PAIN; Start 11/20/16 at 12:00 Acetaminophen (Tylenol Tab) 650 mg Q6H PRN PO PAIN LEVEL 1-3 OR FEVER; Start at 12:00 Morphine Sulfate (morphine) 2 mg Q4H PRN IV PAIN LEVEL 7-10 Last administered on 11/22/16 13:29; Admin Dose 2 MG; Start 11/20/16 at 12:00 Zolpidem Tartrate (Ambien) 5 mg QHS PRN PO INSOMNIA; Start 11/20/16 at 12:00 Pantoprazole (Protonix Tab) 40 mg DAILY@06 PO Last administered on 11/22/16 05: 38; Admin Dose 40 MG; Start 11/21/16 at 06:00 Atorvastatin Calcium (Lipitor) 20 mg QHS PO Last administered on 11/21/16 21: 58; Admin Dose 20 MG; Start 11/20/16 at 21:00 Carvedilol (Coreg) 12.5 mg BID PO Last administered on 11/22/16 09:05; Admin Dose 12.5 MG; Start 11/20/16 at 21:00 Furosemide (Lasix) 20 mg BID PO Last administered on 11/22/16 09:05; Admin Dose 20 MG; Start 11/20/16 at 21:00 Tamsulosin HCl (Flomax) 0.4 mg DAILY PO Last administered on 11/22/16 09:05; Admin Dose 0.4 MG; Start 11/21/16 at 09:00 Miscellaneous Information 1 ea NOTE XX ; Start 11/20/16 at 12:30 Glucose (Glutose) 15 gm Q15M PRN PO DECREASED GLUCOSE; Start 11/20/16 at 12:30 Glucose (Glutose) 22.5 gm Q15M PRN PO DECREASED GLUCOSE; Start 11/20/16 at 12: 30 Dextrose (D50w Syringe) 25 ml Q15M PRN IV DECREASED GLUCOSE; Start 11/20/16 at 12:30 Dextrose (D50w Syringe) 50 ml Q15M PRN IV DECREASED GLUCOSE; Start 11/20/16 at 12:30 Glucagon (Glucagen) 1 mg Q15M PRN IM DECREASED GLUCOSE; Start 11/20/16 at 12:30 Glucose (Glutose) 15 gm Q15M PRN BUCCAL DECREASED GLUCOSE; Start 11/20/16 at 12 :30 Levothyroxine Sodium (Synthroid) 125 mcg DAILY@06 PO Last administered on 05:38; Admin Dose 125 MCG; Start 11/22/16 at 06:00 LOR MASON MD Nov 22, 2016 14:18
--- NOTE | 2016-11-22 15:38 | CONS ---
Date/Time of Note Date/Time of Note DATE: 11/22/16 TIME: 15:33 Assessment/Plan Assessment/Plan Additional Assessment/Plan AV fistula stenosis status post venoplasty Acute decompensated systolic and diastolic heart failure Cardiomyopathy, likely ischemic and nonischemic in origin with an ejection fraction less than 20%. (Denied cardiac transplant at [facility]) Biventricular pacemaker and ICD Borderline blood pressure Mitral and tricuspid valve regurgitation. Severe pulmonary hypertension. End-stage renal disease on hemodialysis Ascites status post paracentesis -Patient awaiting paracentesis today. Blood pressure trend has improved, he does have history of recurrent hypotension, I would decrease dose of Coreg with holding parameters. Fluid management via hemodialysis as per our nephrology colleagues. Consultation Date/Type/Reason Admit Date/Time Nov 20, 2016 at 09:34 Initial Consult Date 11/21/16 Type of Consultation: cv Referring Provider: PARRISH DIEGO MD 24 HR Interval Summary Free Text/Dictation Denies shortness of breath but complains of increased abdominal swelling Exam/Review of Systems Vital Signs Vitals Vital Signs Date Time Temp Pulse Resp B/P Pulse Ox O2 Delivery O2 Flow Rate FiO2 11/22/16 12:21 107 11/22/16 11:30 97.9 20 105/68 98 11/20/16 15:01 Room Air 11/20/16 10:22 21 Intake and Output 11/21/16 11/21/16 11/22/16 14:59 22:59 06:59 Intake Total 500 ml 1100 ml 550 ml Output Total 2500 ml Balance -2000 ml 1100 ml 550 ml Exam Constitutional: alert, frail, oriented Head: normocephalic Neck: supple Respiratory: other (course breath sounds bilaterally, no wheezing) Cardiovascular: other (S1s2 heard), regular rate and rhythm Gastrointestinal: bowel sounds, distended, non-tender, soft Extremities: edema Results Result Diagram: 11/22/16 0555 11/22/16 0555 Results 24 hrs Laboratory Tests Test 11/21/16 17:20 11/21/16 21:55 11/22/16 01:54 11/22/16 05:55 Bedside Glucose 208 208 234 H Anion Gap 22 H Basophils # 0.0 Basophils % 0.5 Blood Morphology Comment Blood Urea Nitrogen 74 H Calcium Level 7.3 L Carbon Dioxide Level 21 Chloride Level 92 L Creatinine 6.89 H Eosinophils # 0.1 Eosinophils % 1.8 Glucose Level 149 Hematocrit 27.0 L Hemoglobin 9.0 L Lymphocytes # 0.9 Lymphocytes % 10.9 L Mean Corpuscular Hemoglobin 29.6 Mean Corpuscular Hemoglobin Concent 33.5 Mean Corpuscular Volume 88.4 Mean Platelet Volume 6.6 L Monocytes # 0.9 Monocytes % 10.8 Neutrophils # 6.2 Neutrophils % 76.0 Nucleated Red Blood Cells # 0.0 Nucleated Red Blood Cells % 0.0 Platelet Count 203 Potassium Level 5.9 H Red Blood Count 3.05 L Red Cell Distribution Width 22.0 H Sodium Level 129 L White Blood Count 8.1 Test 11/22/16 07:35 11/22/16 11:09 Bedside Glucose 212 319 H Medications Medications Current Medications Lorazepam (Ativan) 0.5 mg Q8H PRN PO ANXIETY; Start 11/20/16 at 12:00 Ondansetron HCl (Zofran Inj) 4 mg Q6H PRN IV NAUSEA AND/OR VOMITING; Start at 12:00 Aspirin (Aspirin) 81 mg DAILY PO Last administered on 11/22/16 09:05; Admin Dose 81 MG; Start 11/21/16 at 09:00 Nitroglycerin (Nitroglycerin (Sl Tab) 0.4 Mg) 1 tab Q5M PRN SL CHEST PAIN; Start 11/20/16 at 12:00 Acetaminophen (Tylenol Tab) 650 mg Q6H PRN PO PAIN LEVEL 1-3 OR FEVER; Start at 12:00 Morphine Sulfate (morphine) 2 mg Q4H PRN IV PAIN LEVEL 7-10 Last administered on 11/22/16 13:29; Admin Dose 2 MG; Start 11/20/16 at 12:00 Zolpidem Tartrate (Ambien) 5 mg QHS PRN PO INSOMNIA; Start 11/20/16 at 12:00 Pantoprazole (Protonix Tab) 40 mg DAILY@06 PO Last administered on 11/22/16 05: 38; Admin Dose 40 MG; Start 11/21/16 at 06:00 Atorvastatin Calcium (Lipitor) 20 mg QHS PO Last administered on 11/21/16 21: 58; Admin Dose 20 MG; Start 11/20/16 at 21:00 Carvedilol (Coreg) 12.5 mg BID PO Last administered on 11/22/16 09:05; Admin Dose 12.5 MG; Start 11/20/16 at 21:00 Furosemide (Lasix) 20 mg BID PO Last administered on 11/22/16 09:05; Admin Dose 20 MG; Start 11/20/16 at 21:00 Tamsulosin HCl (Flomax) 0.4 mg DAILY PO Last administered on 11/22/16 09:05; Admin Dose 0.4 MG; Start 11/21/16 at 09:00 Miscellaneous Information 1 ea NOTE XX ; Start 11/20/16 at 12:30 Glucose (Glutose) 15 gm Q15M PRN PO DECREASED GLUCOSE; Start 11/20/16 at 12:30 Glucose (Glutose) 22.5 gm Q15M PRN PO DECREASED GLUCOSE; Start 11/20/16 at 12: 30 Dextrose (D50w Syringe) 25 ml Q15M PRN IV DECREASED GLUCOSE; Start 11/20/16 at 12:30 Dextrose (D50w Syringe) 50 ml Q15M PRN IV DECREASED GLUCOSE; Start 11/20/16 at 12:30 Glucagon (Glucagen) 1 mg Q15M PRN IM DECREASED GLUCOSE; Start 11/20/16 at 12:30 Glucose (Glutose) 15 gm Q15M PRN BUCCAL DECREASED GLUCOSE; Start 11/20/16 at 12 :30 Levothyroxine Sodium (Synthroid) 125 mcg DAILY@06 PO Last administered on 05:38; Admin Dose 125 MCG; Start 11/22/16 at 06:00 Harpreet Cee DO Nov 22, 2016 15:38
--- NOTE | 2016-11-22 16:11 | CONS ---
Date/Time of Note Date/Time of Note DATE: 11/22/16 TIME: 16:10 Assessment/Plan Assessment/Plan Additional Assessment/Plan Additional Assessment/Plan IMPRESSION: 1. Congestive heart failure, status post automatic implantable cardioverter- defibrillator.feels better,no s.o.b,EF of 20% 2. End-stage renal disease on dialysis. 3. Coronary artery disease status post coronary artery bypass graft. 4. Diabetes mellitus. 5. Hypothyroidism. 6. Ascites. 7. Anemia. 8. Mild elevation of alkaline phosphatase. 9. Cirrhosis of liver with portal hypertension. PLAN: 1. At this point, is to continue with dialysis and take out more fluid during dialysis. 2. Paracentesis on a need basis under the cover of albumin. 3. Continue all his medication. 4. The patient is not a candidate for TIPS given his renal failure and cardiomyopathy. 5. He has refractory ascites, Consultation Date/Type/Reason Admit Date/Time Nov 20, 2016 at 09:34 Initial Consult Date 11/21/16 Type of Consultation: cv Referring Provider: PARRISH DIEGO MD 24 HR Interval Summary Constitutional: improved, no complaints Exam/Review of Systems Vital Signs Vitals Vital Signs Date Time Temp Pulse Resp B/P Pulse Ox O2 Delivery O2 Flow Rate FiO2 11/22/16 16:01 97.9 88 20 87/47 98 11/20/16 15:01 Room Air 11/20/16 10:22 21 Intake and Output 11/21/16 11/21/16 11/22/16 15:00 23:00 07:00 Intake Total 500 ml 1100 ml 550 ml Output Total 2500 ml Balance -2000 ml 1100 ml 550 ml Exam Constitutional: alert, oriented, well developed Psych: nl mood/affect, no complaints Head: atraumatic, normocephalic Eyes: EOMI, PERRL, nl conjunctiva, nl lids, nl sclera ENMT: nl external ears & nose, nl lips & teeth, nl nasal mucosa & septum Neck: non-tender, supple Respiratory: clear to auscultation, normal air movement Cardiovascular: nl pulses, regular rate and rhythm Gastrointestinal: nl liver, spleen, non-tender, soft Musculoskeletal: nl extremities to inspection, nl gait and stance Extremities: normal pulses 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: MANAGER ACTION 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, nl mental status, nl speech, nl strength Skin: nl turgor, No rash or lesions Lymph: nl lymph nodes Results Result Diagram: 11/22/16 0555 11/22/16 0555 Results 24 hrs Laboratory Tests Test 11/21/16 17:20 11/21/16 21:55 11/22/16 01:54 11/22/16 05:55 Bedside Glucose 208 208 234 H Anion Gap 22 H Basophils # 0.0 Basophils % 0.5 Blood Morphology Comment Blood Urea Nitrogen 74 H Calcium Level 7.3 L Carbon Dioxide Level 21 Chloride Level 92 L Creatinine 6.89 H Eosinophils # 0.1 Eosinophils % 1.8 Glucose Level 149 Hematocrit 27.0 L Hemoglobin 9.0 L Lymphocytes # 0.9 Lymphocytes % 10.9 L Mean Corpuscular Hemoglobin 29.6 Mean Corpuscular Hemoglobin Concent 33.5 Mean Corpuscular Volume 88.4 Mean Platelet Volume 6.6 L Monocytes # 0.9 Monocytes % 10.8 Neutrophils # 6.2 Neutrophils % 76.0 Nucleated Red Blood Cells # 0.0 Nucleated Red Blood Cells % 0.0 Platelet Count 203 Potassium Level 5.9 H Red Blood Count 3.05 L Red Cell Distribution Width 22.0 H Sodium Level 129 L White Blood Count 8.1 Test 11/22/16 07:35 11/22/16 11:09 Bedside Glucose 212 319 H Medications Medications Current Medications Lorazepam (Ativan) 0.5 mg Q8H PRN PO ANXIETY; Start 11/20/16 at 12:00 Ondansetron HCl (Zofran Inj) 4 mg Q6H PRN IV NAUSEA AND/OR VOMITING; Start at 12:00 Aspirin (Aspirin) 81 mg DAILY PO Last administered on 11/22/16 09:05; Admin Dose 81 MG; Start 11/21/16 at 09:00 Nitroglycerin (Nitroglycerin (Sl Tab) 0.4 Mg) 1 tab Q5M PRN SL CHEST PAIN; Start 11/20/16 at 12:00 Acetaminophen (Tylenol Tab) 650 mg Q6H PRN PO PAIN LEVEL 1-3 OR FEVER; Start at 12:00 Morphine Sulfate (morphine) 2 mg Q4H PRN IV PAIN LEVEL 7-10 Last administered on 11/22/16 15:59; Admin Dose 2 MG; Start 11/20/16 at 12:00 Zolpidem Tartrate (Ambien) 5 mg QHS PRN PO INSOMNIA; Start 11/20/16 at 12:00 Pantoprazole (Protonix Tab) 40 mg DAILY@06 PO Last administered on 11/22/16 05: 38; Admin Dose 40 MG; Start 11/21/16 at 06:00 Atorvastatin Calcium (Lipitor) 20 mg QHS PO Last administered on 11/21/16 21: 58; Admin Dose 20 MG; Start 11/20/16 at 21:00 Furosemide (Lasix) 20 mg BID PO Last administered on 11/22/16 09:05; Admin Dose 20 MG; Start 11/20/16 at 21:00 Tamsulosin HCl (Flomax) 0.4 mg DAILY PO Last administered on 11/22/16 09:05; Admin Dose 0.4 MG; Start 11/21/16 at 09:00 Miscellaneous Information 1 ea NOTE XX ; Start 11/20/16 at 12:30 Glucose (Glutose) 15 gm Q15M PRN PO DECREASED GLUCOSE; Start 11/20/16 at 12:30 Glucose (Glutose) 22.5 gm Q15M PRN PO DECREASED GLUCOSE; Start 11/20/16 at 12: 30 Dextrose (D50w Syringe) 25 ml Q15M PRN IV DECREASED GLUCOSE; Start 11/20/16 at 12:30 Dextrose (D50w Syringe) 50 ml Q15M PRN IV DECREASED GLUCOSE; Start 11/20/16 at 12:30 Glucagon (Glucagen) 1 mg Q15M PRN IM DECREASED GLUCOSE; Start 11/20/16 at 12:30 Glucose (Glutose) 15 gm Q15M PRN BUCCAL DECREASED GLUCOSE; Start 11/20/16 at 12 :30 Levothyroxine Sodium (Synthroid) 125 mcg DAILY@06 PO Last administered on 05:38; Admin Dose 125 MCG; Start 11/22/16 at 06:00 Carvedilol (Coreg) 6.25 mg BID PO ; Start 11/22/16 at 21:00 LOR MASON MD Nov 22, 2016 16:11
--- NOTE | 2016-11-22 17:26 | CONS ---
Date/Time of Note Date/Time of Note DATE: 11/22/16 TIME: 17:24 Assessment/Plan Assessment/Plan Additional Assessment/Plan 66 yo Male with 1) ESRD on HD 2) Hyperkalemia 3) RT AVF Dysfunction S/p Fistulogram 4) Anemia, Chronic Dx 5) Anasarca 6) Liver disease, Ascites S/P Parcentesis 7) Hyponatremia HD Today if BP tolerates, Albumin if necessary Kayexalate PRN For K+>5.5 Cont to monitor electrolytes, Volume status Repeat Chemistry in am Consultation Date/Type/Reason Admit Date/Time Nov 20, 2016 at 09:34 Initial Consult Date 11/21/16 Type of Consultation: Nephrology Referring Provider: PARRISH DIEGO MD 24 HR Interval Summary Free Text/Dictation Pt to got for to radiology for paracentesis. Exam/Review of Systems Vital Signs Vitals Vital Signs Date Time Temp Pulse Resp B/P Pulse Ox O2 Delivery O2 Flow Rate FiO2 11/22/16 16:23 87 11/22/16 16:01 97.9 20 87/47 98 11/20/16 15:01 Room Air 11/20/16 10:22 21 Intake and Output 11/21/16 11/21/16 11/22/16 15:00 23:00 07:00 Intake Total 500 ml 1100 ml 550 ml Output Total 2500 ml Balance -2000 ml 1100 ml 550 ml Exam Constitutional: No distress ENMT: mucosa pink and moist Cardiovascular: edema, regular rate and rhythm Gastrointestinal: ascites Results Result Diagram: 11/22/16 0555 11/22/16 0555 Results 24 hrs Laboratory Tests Test 11/21/16 21:55 11/22/16 01:54 11/22/16 05:55 11/22/16 07:35 Bedside Glucose 208 234 H 212 Anion Gap 22 H Basophils # 0.0 Basophils % 0.5 Blood Morphology Comment Blood Urea Nitrogen 74 H Calcium Level 7.3 L Carbon Dioxide Level 21 Chloride Level 92 L Creatinine 6.89 H Eosinophils # 0.1 Eosinophils % 1.8 Glucose Level 149 Hematocrit 27.0 L Hemoglobin 9.0 L Lymphocytes # 0.9 Lymphocytes % 10.9 L Mean Corpuscular Hemoglobin 29.6 Mean Corpuscular Hemoglobin Concent 33.5 Mean Corpuscular Volume 88.4 Mean Platelet Volume 6.6 L Monocytes # 0.9 Monocytes % 10.8 Neutrophils # 6.2 Neutrophils % 76.0 Nucleated Red Blood Cells # 0.0 Nucleated Red Blood Cells % 0.0 Platelet Count 203 Potassium Level 5.9 H Red Blood Count 3.05 L Red Cell Distribution Width 22.0 H Sodium Level 129 L White Blood Count 8.1 Test 11/22/16 11:09 Bedside Glucose 319 H Medications Medications Current Medications Lorazepam (Ativan) 0.5 mg Q8H PRN PO ANXIETY; Start 11/20/16 at 12:00 Ondansetron HCl (Zofran Inj) 4 mg Q6H PRN IV NAUSEA AND/OR VOMITING; Start at 12:00 Aspirin (Aspirin) 81 mg DAILY PO Last administered on 11/22/16 09:05; Admin Dose 81 MG; Start 11/21/16 at 09:00 Nitroglycerin (Nitroglycerin (Sl Tab) 0.4 Mg) 1 tab Q5M PRN SL CHEST PAIN; Start 11/20/16 at 12:00 Acetaminophen (Tylenol Tab) 650 mg Q6H PRN PO PAIN LEVEL 1-3 OR FEVER; Start at 12:00 Morphine Sulfate (morphine) 2 mg Q4H PRN IV PAIN LEVEL 7-10 Last administered on 11/22/16 15:59; Admin Dose 2 MG; Start 11/20/16 at 12:00 Zolpidem Tartrate (Ambien) 5 mg QHS PRN PO INSOMNIA; Start 11/20/16 at 12:00 Pantoprazole (Protonix Tab) 40 mg DAILY@06 PO Last administered on 11/22/16 05: 38; Admin Dose 40 MG; Start 11/21/16 at 06:00 Atorvastatin Calcium (Lipitor) 20 mg QHS PO Last administered on 11/21/16 21: 58; Admin Dose 20 MG; Start 11/20/16 at 21:00 Furosemide (Lasix) 20 mg BID PO Last administered on 11/22/16 09:05; Admin Dose 20 MG; Start 11/20/16 at 21:00 Tamsulosin HCl (Flomax) 0.4 mg DAILY PO Last administered on 11/22/16 09:05; Admin Dose 0.4 MG; Start 11/21/16 at 09:00 Miscellaneous Information 1 ea NOTE XX ; Start 11/20/16 at 12:30 Glucose (Glutose) 15 gm Q15M PRN PO DECREASED GLUCOSE; Start 11/20/16 at 12:30 Glucose (Glutose) 22.5 gm Q15M PRN PO DECREASED GLUCOSE; Start 11/20/16 at 12: 30 Dextrose (D50w Syringe) 25 ml Q15M PRN IV DECREASED GLUCOSE; Start 11/20/16 at 12:30 Dextrose (D50w Syringe) 50 ml Q15M PRN IV DECREASED GLUCOSE; Start 11/20/16 at 12:30 Glucagon (Glucagen) 1 mg Q15M PRN IM DECREASED GLUCOSE; Start 11/20/16 at 12:30 Glucose (Glutose) 15 gm Q15M PRN BUCCAL DECREASED GLUCOSE; Start 11/20/16 at 12 :30 Levothyroxine Sodium (Synthroid) 125 mcg DAILY@06 PO Last administered on t 05:38; Admin Dose 125 MCG; Start 11/22/16 at 06:00 Carvedilol (Coreg) 6.25 mg BID PO ; Start 11/22/16 at 21:00 PARRISH DIEGO MD Nov 22, 2016 17:26
[2016-11-22] MEDS ORDERED: LIDOCAINE 1% (MPF) 5 ML VIAL ONE (18:02)
[2016-11-22] MEDS ORDERED: NA POLYST SULFON 15 GM/60 ML BTL PO ONE (21:30)
[2016-11-22] MEDS ORDERED: ALBUMIN HUMAN 25% 50 ML IV ONE (21:30)
[2016-11-22] MEDS: ATORVASTATIN 20 MG TAB PO SCH (21:48)
--- NOTE | 2016-11-22 23:12 | RADRPT ---
PROCEDURE: Ultrasound guided paracentesis. CLINICAL INDICATION: Ascites and shortness of breath. COMPARISON: 11/20/2016. TECHNIQUE: The risks, benefits, and alternatives were explained to the patient, including but not limited to bl eeding, infection, pain, visceral or vascular damage, shock, and . The patient understood the risks and the alternatives and wished to proceed with the procedure. Informed written consent was o btained. A procedural time out was performed. The patient's name, date of , and procedure to b e performed were verified. Utilizing ultrasound guidance, optimal location for entry to the peritoneal cavity was ascertained. The overlying skin was prepped and draped in the usual sterile fashion. Approximately 10 ml of 1% Xylocaine was injected locally for pain control. Using ultrasound guidance, an 8 [place] catheter wa s introduced into the peritoneal cavity in the right lower quadrant without difficulty. FINDINGS: Initial images demonstrate ascites. Approximately 5.9 liters of serous fluid was aspirated and disc arded. The patient tolerated the procedure well without complication. IMPRESSION: 1. Successful ultrasound-guided paracentesis. RPTAT: QQ .Neo Jerome MD, MD Date Time Electronically viewed and signed by .Neo Jerome MD, on 11/22/2016 23:12 .R/
[2016-11-22] MEDS: ALBUMIN HUMAN 25% 100 ML IV PRN (23:46)
[2016-11-23] VITALS (77 sets, daily range): BP systolic 48–115; BP diastolic 22–80; PULSE 63–123; RESP 9–23
[2016-11-23] MEDS: PANTOPRAZOLE (EC) 40 MG TAB PO SCH (05:32)
[2016-11-23] MEDS: LEVOTHYROXINE 125 MCG TAB PO SCH (05:32)
[2016-11-23] MEDS: ALBUMIN HUMAN 25% 100 ML IV PRN ×2 (05:34→08:44)
[2016-11-23] MEDS ORDERED: SOD CHLORIDE 0.9% 500 ML IV ONE ×2 (06:00→06:30)
[2016-11-23] MEDS ORDERED: DOPamine-D5W 1.6 MG/ML 250 ML ONE (06:26)
[2016-11-23] MEDS ORDERED: DOPamine-D5W 1.6 MG/ML 250 ML IV SCH (06:30)
[2016-11-23 07:36] LABS: BASOPHILS % 0.4 % (0.0-2.0); EOSINOPHILS # 0.1 10^3/ul (0.0-0.5); HEMATOCRIT 24.7 % (42.0-52.0); HEMOGLOBIN 8.4 g/dl (14.0-18.0); LYMPHOCYTES # 0.7 10^3/ul (0.8-2.9); LYMPHOCYTES % 10.8 % (15.0-51.0); MEAN CORPUSCULAR HEMOGLOBIN 30.1 pg (29.0-33.0); MEAN CORPUSCULAR HGB CONC 33.9 g/dl (32.0-37.0); MEAN CORPUSCULAR VOLUME 88.8 fl (82.0-101.0); MEAN PLATELET VOLUME 6.7 fl (7.4-10.4); MONOCYTE # 0.6 10^3/ul (0.3-0.9); MONOCYTES % 9.8 % (0.0-11.0); NEUTROPHIL # 4.7 10^3/ul (1.6-7.5); PLATELET COUNT 160 10^3/UL (140-440); RED BLOOD COUNT 2.78 10^6/ul (4.70-6.10); RED CELL DISTRIBUTION WIDTH 21.3 % (11.5-14.5); UNCORRECTED WBC 6.1 10^3/ul (4.8-10.8); WHITE BLOOD COUNT 6.1 10^3/ul (4.8-10.8)
[2016-11-23 07:40] LABS: CONDITION 1; LH ANALYZER COMMENTS 1
[2016-11-23] MEDS ORDERED: NORepinephrine 8MG/250 ML (PMX 250 ML ONE (07:45)
[2016-11-23 07:52] LABS: CALCIUM 7.2 mg/dl (8.4-10.2); CREATININE 7.13 mg/dl (0.61-1.24)
[2016-11-23 08:01] LABS: POTASSIUM 6.1 mmol/L (3.5-5.1)
[2016-11-23] MEDS ORDERED: NORepinephrine 8MG/250 ML (PMX 250 ML IV SCH (08:30)
[2016-11-23] MEDS: FUROSEMIDE 20 MG TAB PO SCH (09:00)
[2016-11-23] MEDS ORDERED: glipiZIDE 10 MG TAB PO SCH (09:00)
[2016-11-23] MEDS ORDERED: NA POLYST SULFON 15 GM/60 ML BTL PO ONE (09:30)
[2016-11-23] MEDS: INSULIN ASPART [NOVOLOG] 3 ML PEN SC SCH ×4 (10:05→21:04)
[2016-11-23] MEDS: ASPIRIN 81 MG TAB PO SCH (10:10)
[2016-11-23] MEDS: TAMSULOSIN (SR) 0.4 MG CAP PO SCH (10:10)
[2016-11-23] MEDS: morphine 2 MG INJ IV PRN ×2 (13:04→21:05)
[2016-11-23] MEDS: MIDODRINE 5 MG TAB GTB SCH ×2 (13:23→17:26)
--- NOTE | 2016-11-23 14:20 | PN ---
Date/Time of Note Date/Time of Note DATE: 11/23/16 TIME: 14:18 Assessment/Plan VTE Prophylaxis VTE Prophylaxis Intervention: SCD's Lines/Catheters IV Catheter Type (from Nrs): Peripheral IV Urinary Cath still in place: No (HD/aneuric pt) Assessment/Plan Assessment/Plan 1. Congestive heart failure exacerbation. Continue to remove fluids with hemodialysis. 2. Ascites, status post paracentesis. Patient was increased ascites today, paracentesis today. 3. End-stage renal disease, hemodialysis-dependent. - per Dr. Maddox is following from nephrology standpoint. Continue patient on hemodialysis. 4. Hyperkalemia. The patient is status post Kayexalate. Continue to monitor electrolytes and admit to telemetry floor. 5. Coronary artery disease status post coronary artery bypass graft. Continue patient on aspirin and Coreg. - per Dr. Cee is following from cardiology standpoint. 6. Hypothyroidism. TSH is 14, Cont Synthroid to 125. 7. Diabetes mellitus type 2. - Continue to monitor blood sugar with mild algorithm scale, NovoLog coverage. 7. Hyperglycemia sec to Diabetes - Lantus 13 units QHS. 8. Hemodialysis access, status post right AV fistulogram by Dr. Loco, vascular surgery on 11/21. Continue Protonix for peptic ulcer disease prophylaxis. Further recommendations based on clinical course. Total critical care time spent 40 minutes. Plan of care discussed with Dr. Vick. Subjective 24 Hr Interval Summary Constitutional: requiring IVF, requiring O2 Eyes: no complaints ENT: no complaints Respiratory: no complaints Cardiovascular: no complaints Gastrointestinal: other (disension) Genitourinary: no complaints Musculoskeletal: no complaints Skin: no complaints Neurologic: no complaints Endocrine: no complaints Lymphatic: no complaints Psychological: nl mood/affect Immunologic: no complaints Exam/Review of Systems Vital Signs Vitals Vital Signs Date Time Temp Pulse Resp B/P Pulse Ox O2 Delivery O2 Flow Rate FiO2 11/23/16 12:45 84 12 97 11/23/16 12:30 82/60 11/23/16 12:15 98.3 11/23/16 08:00 Nasal Cannula 3.0 11/20/16 10:22 21 Exam Constitutional: alert Psych: nl mood/affect Head: atraumatic Eyes: EOMI, nl sclera ENMT: nl external ears & nose Neck: non-tender Respiratory: clear to auscultation Cardiovascular: nl pulses Gastrointestinal: ascites, non-tender, soft Musculoskeletal: nl extremities to inspection Extremities: normal pulses 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: nl mental status, nl speech Lymph: nontender Results Result Diagram: 11/23/16 0645 11/23/16 0645 Results 24 hrs Laboratory Tests Test 11/22/16 17:17 11/22/16 21:41 11/23/16 06:45 11/23/16 08:48 Bedside Glucose 138 195 243 H Anion Gap 22 H Basophils # 0.0 Basophils % 0.4 Blood Morphology Comment Blood Urea Nitrogen 84 H Calcium Level 7.2 L Carbon Dioxide Level 18 L Chloride Level 87 L Creatinine 7.13 H Eosinophils # 0.1 Eosinophils % 2.0 Glucose Level 227 H Hematocrit 24.7 L Hemoglobin 8.4 L Lymphocytes # 0.7 L Lymphocytes % 10.8 L Mean Corpuscular Hemoglobin 30.1 Mean Corpuscular Hemoglobin Concent 33.9 Mean Corpuscular Volume 88.8 Mean Platelet Volume 6.7 L Monocytes # 0.6 Monocytes % 9.8 Neutrophils # 4.7 Neutrophils % 77.0 Nucleated Red Blood Cells # 0.0 Nucleated Red Blood Cells % 0.0 Platelet Count 160 # Potassium Level 6.1 *H Red Blood Count 2.78 L Red Cell Distribution Width 21.3 H Sodium Level 121 L White Blood Count 6.1 # Test 11/23/16 12:24 Bedside Glucose 248 H Medications Medications Current Medications Lorazepam (Ativan) 0.5 mg Q8H PRN PO ANXIETY; Start 11/20/16 at 12:00 Ondansetron HCl (Zofran Inj) 4 mg Q6H PRN IV NAUSEA AND/OR VOMITING Last administered on 11/23/16 05:32; Admin Dose 4 MG; Start 11/20/16 at 12:00 Aspirin (Aspirin) 81 mg DAILY PO Last administered on 11/23/16 10:10; Admin Dose 81 MG; Start 11/21/16 at 09:00 Nitroglycerin (Nitroglycerin (Sl Tab) 0.4 Mg) 1 tab Q5M PRN SL CHEST PAIN; Start 11/20/16 at 12:00 Acetaminophen (Tylenol Tab) 650 mg Q6H PRN PO PAIN LEVEL 1-3 OR FEVER; Start at 12:00 Morphine Sulfate (morphine) 2 mg Q4H PRN IV PAIN LEVEL 7-10 Last administered on 11/23/16 13:04; Admin Dose 2 MG; Start 11/20/16 at 12:00 Zolpidem Tartrate (Ambien) 5 mg QHS PRN PO INSOMNIA; Start 11/20/16 at 12:00 Pantoprazole (Protonix Tab) 40 mg DAILY@06 PO Last administered on 11/23/16 05: 32; Admin Dose 40 MG; Start 11/21/16 at 06:00 Miscellaneous Information 1 ea NOTE XX ; Start 11/20/16 at 12:30 Glucose (Glutose) 15 gm Q15M PRN PO DECREASED GLUCOSE; Start 11/20/16 at 12:30 Glucose (Glutose) 22.5 gm Q15M PRN PO DECREASED GLUCOSE; Start 11/20/16 at 12: 30 Dextrose (D50w Syringe) 25 ml Q15M PRN IV DECREASED GLUCOSE; Start 11/20/16 at 12:30 Dextrose (D50w Syringe) 50 ml Q15M PRN IV DECREASED GLUCOSE; Start 11/20/16 at 12:30 Glucagon (Glucagen) 1 mg Q15M PRN IM DECREASED GLUCOSE; Start 11/20/16 at 12:30 Glucose (Glutose) 15 gm Q15M PRN BUCCAL DECREASED GLUCOSE; Start 11/20/16 at 12 :30 Levothyroxine Sodium 125 mcg 125 mcg DAILY@06 PO Last administered on 11/23/16 05:32; Admin Dose 125 MCG; Start 11/22/16 at 06:00 Dopamine HCl/ Dextrose 250 ml @ 5.318 mls/ hr TITRATE IV Last administered on 11/23/16 07:11; Admin Dose 13.294 MLS/HR; Start 11/23/16 at 06:30 Norepinephrine/ Dextrose (Levophed/D5W) 500 ml @ 1.87 mls/hr TITRATE IV ; Start 11/23/16 at 14:00 Midodrine (Proamatine) 5 mg TID@,, GTB Last administered on 11/23/16 13: 23; Admin Dose 5 MG; Start 11/23/16 at 13:00 PEBBLES REYES Nov 23, 2016 14:20
--- NOTE | 2016-11-23 14:54 | CONS ---
Date/Time of Note Date/Time of Note DATE: 11/23/16 TIME: 14:49 Consultation Date/Type/Reason Admit Date/Time Nov 20, 2016 at 09:34 Initial Consult Date 11/21/16 Type of Consultation: Nephrology Referring Provider: PARRISH DIEGO MD 24 HR Interval Summary Free Text/Dictation Pt is remarkably awake alert & oriented Constitutional: improved, other (BP remains low) Exam/Review of Systems Vital Signs Vitals Vital Signs Date Time Temp Pulse Resp B/P Pulse Ox O2 Delivery O2 Flow Rate FiO2 11/23/16 12:45 84 12 97 11/23/16 12:30 82/60 11/23/16 12:15 98.3 11/23/16 08:00 Nasal Cannula 3.0 11/20/16 10:22 21 Exam Pt sitting up in bed Constitutional: alert, oriented, well developed Psych: depression Head: normocephalic Eyes: PERRL ENMT: nl external ears & nose Neck: supple Respiratory: clear to auscultation Cardiovascular: nl pulses Gastrointestinal: distended, hepatomegaly, other (Pt hadparacentasis of 5L yesterday), soft Musculoskeletal: nl extremities to inspection Extremities: other (AV Fistula functioning in rt arm) 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 Results Hbg has dropped, SK is high Pt given Kayexalate while waiting for the BP to stabilize for HD Result Diagram: 11/23/16 0645 11/23/16 0645 Results 24 hrs Laboratory Tests Test 11/22/16 17:17 11/22/16 21:41 11/23/16 06:45 11/23/16 08:48 Bedside Glucose 138 195 243 H Anion Gap 22 H Basophils # 0.0 Basophils % 0.4 Blood Morphology Comment Blood Urea Nitrogen 84 H Calcium Level 7.2 L Carbon Dioxide Level 18 L Chloride Level 87 L Creatinine 7.13 H Eosinophils # 0.1 Eosinophils % 2.0 Glucose Level 227 H Hematocrit 24.7 L Hemoglobin 8.4 L Lymphocytes # 0.7 L Lymphocytes % 10.8 L Mean Corpuscular Hemoglobin 30.1 Mean Corpuscular Hemoglobin Concent 33.9 Mean Corpuscular Volume 88.8 Mean Platelet Volume 6.7 L Monocytes # 0.6 Monocytes % 9.8 Neutrophils # 4.7 Neutrophils % 77.0 Nucleated Red Blood Cells # 0.0 Nucleated Red Blood Cells % 0.0 Platelet Count 160 # Potassium Level 6.1 *H Red Blood Count 2.78 L Red Cell Distribution Width 21.3 H Sodium Level 121 L White Blood Count 6.1 # Test 11/23/16 12:24 Bedside Glucose 248 H Medications Medications Current Medications Lorazepam (Ativan) 0.5 mg Q8H PRN PO ANXIETY; Start 11/20/16 at 12:00 Ondansetron HCl (Zofran Inj) 4 mg Q6H PRN IV NAUSEA AND/OR VOMITING Last administered on 11/23/16 05:32; Admin Dose 4 MG; Start 11/20/16 at 12:00 Aspirin (Aspirin) 81 mg DAILY PO Last administered on 11/23/16 10:10; Admin Dose 81 MG; Start 11/21/16 at 09:00 Nitroglycerin (Nitroglycerin (Sl Tab) 0.4 Mg) 1 tab Q5M PRN SL CHEST PAIN; Start 11/20/16 at 12:00 Acetaminophen (Tylenol Tab) 650 mg Q6H PRN PO PAIN LEVEL 1-3 OR FEVER; Start at 12:00 Morphine Sulfate (morphine) 2 mg Q4H PRN IV PAIN LEVEL 7-10 Last administered on 11/23/16 13:04; Admin Dose 2 MG; Start 11/20/16 at 12:00 Zolpidem Tartrate (Ambien) 5 mg QHS PRN PO INSOMNIA; Start 11/20/16 at 12:00 Pantoprazole (Protonix Tab) 40 mg DAILY@06 PO Last administered on 11/23/16 05: 32; Admin Dose 40 MG; Start 11/21/16 at 06:00 Miscellaneous Information 1 ea NOTE XX ; Start 11/20/16 at 12:30 Glucose (Glutose) 15 gm Q15M PRN PO DECREASED GLUCOSE; Start 11/20/16 at 12:30 Glucose (Glutose) 22.5 gm Q15M PRN PO DECREASED GLUCOSE; Start 11/20/16 at 12: 30 Dextrose (D50w Syringe) 25 ml Q15M PRN IV DECREASED GLUCOSE; Start 11/20/16 at 12:30 Dextrose (D50w Syringe) 50 ml Q15M PRN IV DECREASED GLUCOSE; Start 11/20/16 at 12:30 Glucagon (Glucagen) 1 mg Q15M PRN IM DECREASED GLUCOSE; Start 11/20/16 at 12:30 Glucose (Glutose) 15 gm Q15M PRN BUCCAL DECREASED GLUCOSE; Start 11/20/16 at 12 :30 Levothyroxine Sodium 125 mcg 125 mcg DAILY@06 PO Last administered on 11/23/16 05:32; Admin Dose 125 MCG; Start 11/22/16 at 06:00 Dopamine HCl/ Dextrose 250 ml @ 5.318 mls/ hr TITRATE IV Last administered on 11/23/16 07:11; Admin Dose 13.294 MLS/HR; Start 11/23/16 at 06:30 Norepinephrine/ Dextrose (Levophed/D5W) 500 ml @ 1.87 mls/hr TITRATE IV ; Start 11/23/16 at 14:00 Midodrine (Proamatine) 5 mg TID@09,,17 GTB Last administered on 11/23/16 13: 23; Admin Dose 5 MG; Start 11/23/16 at 13:00 Insulin Glargine (Lantus) 13 unit HS SC ; Start 11/23/16 at 21:00 MILADY ANDERSON MD Nov 23, 2016 14:54
--- NOTE | 2016-11-23 16:49 | CONS ---
Date/Time of Note Date/Time of Note DATE: 11/23/16 TIME: 16:46 Assessment/Plan Assessment/Plan Additional Assessment/Plan Severe hypotension requiring IV pressor AV fistula stenosis status post venoplasty Acute decompensated systolic and diastolic heart failure Cardiomyopathy, likely ischemic and nonischemic in origin with an ejection fraction less than 20%. (Denied cardiac transplant at [facility]) Biventricular pacemaker and ICD Mitral and tricuspid valve regurgitation. Severe pulmonary hypertension. End-stage renal disease on hemodialysis Ascites status post paracentesis -Patient with severe hypotension after paracentesis. Started on IV pressor, given albumin. Patient also with anemia and plan for blood transfusion. Hold all antihypertensive agents including diuretics. Fluid management via hemodialysis as per our nephrology colleagues. Consultation Date/Type/Reason Admit Date/Time Nov 20, 2016 at 09:34 Initial Consult Date 11/21/16 Type of Consultation: cv Referring Provider: PARRISH DIEGO MD 24 HR Interval Summary Free Text/Dictation Patient with severe hypotension after paracentesis. Transferred to ICU. Feeling better, complaining of cough Exam/Review of Systems Vital Signs Vitals Vital Signs Date Time Temp Pulse Resp B/P Pulse Ox O2 Delivery O2 Flow Rate FiO2 11/23/16 15:15 73 13 80/53 100 11/23/16 12:15 98.3 11/23/16 08:00 Nasal Cannula 3.0 11/20/16 10:22 21 Exam No apparent distress Constitutional: alert, frail, oriented Head: normocephalic Neck: supple Respiratory: other (course breath sounds bilaterally, no wheezing) Cardiovascular: other (S1 and S2 heard), regular rate and rhythm Gastrointestinal: bowel sounds, distended, non-tender, soft Extremities: edema (trace) Results Result Diagram: 11/23/16 0645 11/23/16 0645 Results 24 hrs Laboratory Tests Test 11/22/16 17:17 11/22/16 21:41 11/23/16 06:45 11/23/16 08:48 Bedside Glucose 138 195 243 H Anion Gap 22 H Basophils # 0.0 Basophils % 0.4 Blood Morphology Comment Blood Urea Nitrogen 84 H Calcium Level 7.2 L Carbon Dioxide Level 18 L Chloride Level 87 L Creatinine 7.13 H Eosinophils # 0.1 Eosinophils % 2.0 Glucose Level 227 H Hematocrit 24.7 L Hemoglobin 8.4 L Lymphocytes # 0.7 L Lymphocytes % 10.8 L Mean Corpuscular Hemoglobin 30.1 Mean Corpuscular Hemoglobin Concent 33.9 Mean Corpuscular Volume 88.8 Mean Platelet Volume 6.7 L Monocytes # 0.6 Monocytes % 9.8 Neutrophils # 4.7 Neutrophils % 77.0 Nucleated Red Blood Cells # 0.0 Nucleated Red Blood Cells % 0.0 Platelet Count 160 # Potassium Level 6.1 *H Red Blood Count 2.78 L Red Cell Distribution Width 21.3 H Sodium Level 121 L White Blood Count 6.1 # Test 11/23/16 12:24 Bedside Glucose 248 H Medications Medications Current Medications Lorazepam (Ativan) 0.5 mg Q8H PRN PO ANXIETY; Start 11/20/16 at 12:00 Ondansetron HCl (Zofran Inj) 4 mg Q6H PRN IV NAUSEA AND/OR VOMITING Last administered on 11/23/16 05:32; Admin Dose 4 MG; Start 11/20/16 at 12:00 Aspirin (Aspirin) 81 mg DAILY PO Last administered on 11/23/16 10:10; Admin Dose 81 MG; Start 11/21/16 at 09:00 Nitroglycerin (Nitroglycerin (Sl Tab) 0.4 Mg) 1 tab Q5M PRN SL CHEST PAIN; Start 11/20/16 at 12:00 Acetaminophen (Tylenol Tab) 650 mg Q6H PRN PO PAIN LEVEL 1-3 OR FEVER; Start at 12:00 Morphine Sulfate (morphine) 2 mg Q4H PRN IV PAIN LEVEL 7-10 Last administered on 11/23/16 13:04; Admin Dose 2 MG; Start 11/20/16 at 12:00 Zolpidem Tartrate (Ambien) 5 mg QHS PRN PO INSOMNIA; Start 11/20/16 at 12:00 Pantoprazole (Protonix Tab) 40 mg DAILY@06 PO Last administered on 11/23/16 05: 32; Admin Dose 40 MG; Start 11/21/16 at 06:00 Miscellaneous Information 1 ea NOTE XX ; Start 11/20/16 at 12:30 Glucose (Glutose) 15 gm Q15M PRN PO DECREASED GLUCOSE; Start 11/20/16 at 12:30 Glucose (Glutose) 22.5 gm Q15M PRN PO DECREASED GLUCOSE; Start 11/20/16 at 12: 30 Dextrose (D50w Syringe) 25 ml Q15M PRN IV DECREASED GLUCOSE; Start 11/20/16 at 12:30 Dextrose (D50w Syringe) 50 ml Q15M PRN IV DECREASED GLUCOSE; Start 11/20/16 at 12:30 Glucagon (Glucagen) 1 mg Q15M PRN IM DECREASED GLUCOSE; Start 11/20/16 at 12:30 Glucose (Glutose) 15 gm Q15M PRN BUCCAL DECREASED GLUCOSE; Start 11/20/16 at 12 :30 Levothyroxine Sodium 125 mcg 125 mcg DAILY@06 PO Last administered on 11/23/16 05:32; Admin Dose 125 MCG; Start 11/22/16 at 06:00 Dopamine HCl/ Dextrose 250 ml @ 5.318 mls/ hr TITRATE IV Last administered on 11/23/16 07:11; Admin Dose 13.294 MLS/HR; Start 11/23/16 at 06:30 Norepinephrine/ Dextrose (Levophed/D5W) 500 ml @ 1.87 mls/hr TITRATE IV ; Start 11/23/16 at 14:00 Midodrine (Proamatine) 5 mg TID@,,17 GTB Last administered on 11/23/16 13: 23; Admin Dose 5 MG; Start 11/23/16 at 13:00 Insulin Glargine (Lantus) 13 unit HS SC ; Start 11/23/16 at 21:00 Guaifenesin (Robitussin Liquid Cup) 100 mg Q6H PRN PO COUGH; Start 11/23/16 at 16:30 Harpreet Cee DO Nov 23, 2016 16:49
--- NOTE | 2016-11-23 19:18 | RADRPT ---
Vent Rate: 108 bpm RR Interval: 0 msec [place] Interval: 0 msec QRS Duration: 178 msec QT Interval: 410 msec QTC Interval: 549 msec P-R-T [place]: 0 - -82 - 99 degrees Atrial fibrillation with rapid ventricular response Left axis deviation Nonspecific intraventricular block Possible Lateral infarct , age undetermined Abnormal ECG Electronically Signed By: Donovan Yeager [id number]
--- NOTE | 2016-11-23 20:19 | CONS ---
Date/Time of Note Date/Time of Note DATE: 11/23/16 TIME: 20:16 Assessment/Plan Assessment/Plan Additional Assessment/Plan IMPRESSION: 1. Congestive heart failure, status post automatic implantable cardioverter- defibrillator.feels better,no s.o.b,EF of 20% 2. End-stage renal disease on dialysis. 3. Coronary artery disease status post coronary artery bypass graft. 4. Diabetes mellitus. 5. Hypothyroidism. 6. Ascites. 7. Anemia. 8. Mild elevation of alkaline phosphatase. 9. Cirrhosis of liver with portal hypertension. 10. pt.became hypotensive and transferred to ICU for pressor support 11.s/p large volume paracentesis on 11/22/15 12.anemia r/o gi bleeding PLAN: 1. At this point, is to continue with dialysis and take out more fluid during dialysis. 2. Paracentesis on a need basis under the cover of albumin. 3. Continue all his medication. 4. The patient is not a candidate for TIPS given his renal failure and cardiomyopathy. 5. He has refractory ascites, Consultation Date/Type/Reason Admit Date/Time Nov 20, 2016 at 09:34 Initial Consult Date 11/21/16 Type of Consultation: cv Referring Provider: PARRISH DIEGO MD 24 HR Interval Summary Subjective hx not possible: pt critical Exam/Review of Systems Vital Signs Vitals Vital Signs Date Time Temp Pulse Resp B/P Pulse Ox O2 Delivery O2 Flow Rate FiO2 11/23/16 18:45 84 11 90/59 100 11/23/16 12:15 98.3 11/23/16 08:00 Nasal Cannula 3.0 11/20/16 10:22 21 Exam Constitutional: alert, oriented, well developed Psych: nl mood/affect, no complaints Head: atraumatic, normocephalic Eyes: EOMI, PERRL, nl conjunctiva, nl lids, nl sclera ENMT: nl external ears & nose, nl lips & teeth, nl nasal mucosa & septum Neck: non-tender, supple Respiratory: clear to auscultation, normal air movement Cardiovascular: nl pulses, regular rate and rhythm Gastrointestinal: nl liver, spleen, non-tender, soft Musculoskeletal: nl extremities to inspection, nl gait and stance Extremities: normal pulses 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, nl mental status, nl speech, nl strength Skin: nl turgor, No rash or lesions Lymph: nl lymph nodes Results Result Diagram: 11/23/16 0645 11/23/16 0645 Results 24 hrs Laboratory Tests Test 11/22/16 21:41 11/23/16 06:45 11/23/16 08:48 11/23/16 12:24 Bedside Glucose 195 243 H 248 H Anion Gap 22 H Basophils # 0.0 Basophils % 0.4 Blood Morphology Comment Blood Urea Nitrogen 84 H Calcium Level 7.2 L Carbon Dioxide Level 18 L Chloride Level 87 L Creatinine 7.13 H Eosinophils # 0.1 Eosinophils % 2.0 Glucose Level 227 H Hematocrit 24.7 L Hemoglobin 8.4 L Lymphocytes # 0.7 L Lymphocytes % 10.8 L Mean Corpuscular Hemoglobin 30.1 Mean Corpuscular Hemoglobin Concent 33.9 Mean Corpuscular Volume 88.8 Mean Platelet Volume 6.7 L Monocytes # 0.6 Monocytes % 9.8 Neutrophils # 4.7 Neutrophils % 77.0 Nucleated Red Blood Cells # 0.0 Nucleated Red Blood Cells % 0.0 Platelet Count 160 # Potassium Level 6.1 *H Red Blood Count 2.78 L Red Cell Distribution Width 21.3 H Sodium Level 121 L White Blood Count 6.1 # Test 11/23/16 17:33 Bedside Glucose 209 Medications Medications Current Medications Lorazepam (Ativan) 0.5 mg Q8H PRN PO ANXIETY; Start 11/20/16 at 12:00 Ondansetron HCl (Zofran Inj) 4 mg Q6H PRN IV NAUSEA AND/OR VOMITING Last administered on 11/23/16 05:32; Admin Dose 4 MG; Start 11/20/16 at 12:00 Aspirin (Aspirin) 81 mg DAILY PO Last administered on 11/23/16 10:10; Admin Dose 81 MG; Start 11/21/16 at 09:00 Nitroglycerin (Nitroglycerin (Sl Tab) 0.4 Mg) 1 tab Q5M PRN SL CHEST PAIN; Start 11/20/16 at 12:00 Acetaminophen (Tylenol Tab) 650 mg Q6H PRN PO PAIN LEVEL 1-3 OR FEVER; Start at 12:00 Morphine Sulfate (morphine) 2 mg Q4H PRN IV PAIN LEVEL 7-10 Last administered on 11/23/16 13:04; Admin Dose 2 MG; Start 11/20/16 at 12:00 Zolpidem Tartrate (Ambien) 5 mg QHS PRN PO INSOMNIA; Start 11/20/16 at 12:00 Pantoprazole (Protonix Tab) 40 mg DAILY@06 PO Last administered on 11/23/16 05: 32; Admin Dose 40 MG; Start 11/21/16 at 06:00 Miscellaneous Information 1 ea NOTE XX ; Start 11/20/16 at 12:30 Glucose (Glutose) 15 gm Q15M PRN PO DECREASED GLUCOSE; Start 11/20/16 at 12:30 Glucose (Glutose) 22.5 gm Q15M PRN PO DECREASED GLUCOSE; Start 11/20/16 at 12: 30 Dextrose (D50w Syringe) 25 ml Q15M PRN IV DECREASED GLUCOSE; Start 11/20/16 at 12:30 Dextrose (D50w Syringe) 50 ml Q15M PRN IV DECREASED GLUCOSE; Start 11/20/16 at 12:30 Glucagon (Glucagen) 1 mg Q15M PRN IM DECREASED GLUCOSE; Start 11/20/16 at 12:30 Glucose (Glutose) 15 gm Q15M PRN BUCCAL DECREASED GLUCOSE; Start 11/20/16 at 12 :30 Levothyroxine Sodium 125 mcg 125 mcg DAILY@06 PO Last administered on 11/23/16 05:32; Admin Dose 125 MCG; Start 11/22/16 at 06:00 Dopamine HCl/ Dextrose 250 ml @ 5.318 mls/ hr TITRATE IV Last administered on 11/23/16 07:11; Admin Dose 13.294 MLS/HR; Start 11/23/16 at 06:30 Norepinephrine/ Dextrose (Levophed/D5W) 500 ml @ 1.87 mls/hr TITRATE IV Last administered on 11/23/16 17:40; Admin Dose 28.12 MLS/HR; Start 11/23/16 at 14:00 Midodrine (Proamatine) 5 mg TID@,,17 GTB Last administered on 11/23/16 17: 26; Admin Dose 5 MG; Start 11/23/16 at 13:00 Guaifenesin (Robitussin Liquid Cup) 100 mg Q6H PRN PO COUGH; Start 11/23/16 at 16:30 Insulin Glargine (Lantus) 18 unit HS SC ; Start 11/23/16 at 21:00 LOR MASON MD Nov 23, 2016 20:19
[2016-11-23] MEDS ORDERED: INSULIN GLARGINE [LANtus] 3 ML PEN SC SCH (21:00)
[2016-11-23] MEDS: INSULIN GLARGINE [LANtus] 3 ML PEN SC SCH (21:04)
[2016-11-24] VITALS (90 sets, daily range): BP systolic 46–141; BP diastolic 11–92; PULSE 78–106; RESP 10–29
[2016-11-24] MEDS: morphine 2 MG INJ IV PRN ×5 (00:55→22:43)
[2016-11-24 01:28] LABS: HEMOGLOBIN 11.8 g/dl (14.0-18.0); MEAN CORPUSCULAR HGB CONC 33.6 g/dl (32.0-37.0); MEAN CORPUSCULAR VOLUME 86.3 fl (82.0-101.0); MEAN PLATELET VOLUME 6.5 fl (7.4-10.4); PLATELET COUNT 228 10^3/UL (140-440); RED BLOOD COUNT 4.06 10^6/ul (4.70-6.10)
[2016-11-24 01:31] LABS: ALBUMIN 3.3 g/dl (3.3-4.9); CONDITION 1; LH ANALYZER COMMENTS 1; SUSPECT 1
[2016-11-24 01:32] LABS: POTASSIUM 4.1 mmol/L (3.5-5.1)
[2016-11-24 01:34] LABS: ALBUMIN/GLOBULIN RATIO 1.5; BILIRUBIN,DIRECT 0.5 mg/dl (0.00-0.20); BILIRUBIN,INDIRECT 0.8 mg/dl (0-1.1); BILIRUBIN,TOTAL 1.3 mg/dl (0.2-1.3); CREATININE 4.97 mg/dl (0.61-1.24); TOTAL PROTEIN 5.5 g/dl (6.1-8.1)
[2016-11-24 01:51] LABS: LYMPHOCYTES % 5.5 % (15.0-51.0); MONOCYTES % 9.8 % (0.0-11.0); NEUTROPHILS % 83.1 % (39.0-77.0)
[2016-11-24 01:52] LABS: BASOPHILS % 0.4 % (0.0-2.0); EOSINOPHILS % 1.2 % (0.0-7.0); LYMPHOCYTES # 0.5 10^3/ul (0.8-2.9); MONOCYTE # 0.9 10^3/ul (0.3-0.9); NEUTROPHIL # 7.5 10^3/ul (1.6-7.5)
[2016-11-24 01:53] LABS: EOSINOPHILS # 0.1 10^3/ul (0.0-0.5)
[2016-11-24 01:56] LABS: ANISOCYTOSIS 2+; HYPOCHROMASIA 1+
[2016-11-24 02:45] LABS: PLATELET ESTIMATE PLT APPEAR ADEQUATE
[2016-11-24] MEDS: PANTOPRAZOLE (EC) 40 MG TAB PO SCH (05:14)
[2016-11-24] MEDS: LEVOTHYROXINE 125 MCG TAB PO SCH (05:14)
[2016-11-24 06:35] LABS: BASOPHILS % 0.2 % (0.0-2.0); EOSINOPHILS # 0.1 10^3/ul (0.0-0.5); EOSINOPHILS % 1.3 % (0.0-7.0); HEMATOCRIT 34.3 % (42.0-52.0); HEMOGLOBIN 11.6 g/dl (14.0-18.0); LYMPHOCYTES # 0.7 10^3/ul (0.8-2.9); LYMPHOCYTES % 6.8 % (15.0-51.0); MEAN CORPUSCULAR HEMOGLOBIN 29.3 pg (29.0-33.0); MEAN CORPUSCULAR VOLUME 86.1 fl (82.0-101.0); MEAN PLATELET VOLUME 6.8 fl (7.4-10.4); MONOCYTE # 1.1 10^3/ul (0.3-0.9); MONOCYTES % 10.3 % (0.0-11.0); NEUTROPHIL # 8.9 10^3/ul (1.6-7.5); NEUTROPHILS % 81.4 % (39.0-77.0); PLATELET COUNT 241 10^3/UL (140-440); RED BLOOD COUNT 3.98 10^6/ul (4.70-6.10); RED CELL DISTRIBUTION WIDTH 20.1 % (11.5-14.5); UNCORRECTED WBC 10.9 10^3/ul (4.8-10.8); WHITE BLOOD COUNT 10.9 10^3/ul (4.8-10.8)
[2016-11-24 06:45] LABS: POTASSIUM 4.3 mmol/L (3.5-5.1)
[2016-11-24 06:47] LABS: ALBUMIN/GLOBULIN RATIO 1.36; BILIRUBIN,DIRECT 0.1 mg/dl (0.00-0.20); BILIRUBIN,INDIRECT 0.6 mg/dl (0-1.1); BILIRUBIN,TOTAL 0.7 mg/dl (0.2-1.3); CREATININE 5.5 mg/dl (0.61-1.24); TOTAL PROTEIN 5.2 g/dl (6.1-8.1)
[2016-11-24 06:48] LABS: CALCIUM 7.9 mg/dl (8.4-10.2)
[2016-11-24] MEDS ORDERED: PHENTOLAMINE 5 MG INJ SC SCH (07:00)
[2016-11-24 07:43] LABS: CONDITION 1; LH ANALYZER COMMENTS 1
[2016-11-24] MEDS: INSULIN ASPART [NOVOLOG] 3 ML PEN SC SCH ×4 (07:55→21:00)
[2016-11-24] MEDS: MIDODRINE 5 MG TAB GTB SCH (09:07)
[2016-11-24] MEDS: ASPIRIN 81 MG TAB PO SCH (09:07)
[2016-11-24] MEDS ORDERED: LIDOCAINE 1% (MDV) 20 ML INJ SC ONE (09:30)
--- NOTE | 2016-11-24 10:46 | CONS ---
Date/Time of Note Date/Time of Note DATE: 11/24/16 TIME: 10:44 Assessment/Plan Assessment/Plan Additional Assessment/Plan Severe hypotension requiring IV pressor AV fistula stenosis status post venoplasty Acute decompensated systolic and diastolic heart failure Cardiomyopathy, likely ischemic and nonischemic in origin with an ejection fraction less than 20%. (Denied cardiac transplant at [facility]) Biventricular pacemaker and ICD Mitral and tricuspid valve regurgitation. Severe pulmonary hypertension. End-stage renal disease on hemodialysis Ascites status post paracentesis -Patient with improvement in blood pressure after blood transfusion and patient underwent hemodialysis. Given severe cardiomyopathy, baseline systolic blood pressure in the 80s, would titrate IV pressors to maintain SBP greater than 80 or map greater than 55. Continue to hold any antihypertensive medications. Consultation Date/Type/Reason Admit Date/Time Nov 20, 2016 at 09:34 Initial Consult Date 11/21/16 Type of Consultation: cv Referring Provider: PARRISH DIEGO MD 24 HR Interval Summary Free Text/Dictation Feeling better, denies chest pain, dizziness or shortness of breath Exam/Review of Systems Vital Signs Vitals Vital Signs Date Time Temp Pulse Resp B/P Pulse Ox O2 Delivery O2 Flow Rate FiO2 11/24/16 09:45 84 11 87/29 98 11/24/16 07:15 98.6 11/24/16 06:00 Room Air 11/23/16 08:00 3.0 11/20/16 10:22 21 Intake and Output 11/23/16 11/23/16 11/24/16 15:00 23:00 07:00 Intake Total 1387.080 ml 1243.68 ml 334.35 ml Output Total 3300 ml Balance 1387.080 ml -2056.32 ml 334.35 ml Exam No apparent distress Constitutional: alert, frail, oriented Head: normocephalic Neck: supple Respiratory: other (course breath sounds bilaterally, no wheezing) Cardiovascular: other (S1-S2 heard), regular rate and rhythm Gastrointestinal: bowel sounds, non-tender, soft Extremities: edema Results Result Diagram: 11/24/16 0600 11/24/16 0600 Results 24 hrs Laboratory Tests Test 11/23/16 12:24 11/23/16 17:33 11/23/16 20:58 11/24/16 01:00 Bedside Glucose 248 H 209 206 Alanine Aminotransferase (ALT/SGPT) 27 Albumin 3.3 Albumin/Globulin Ratio 1.50 Alkaline Phosphatase 109 Anion Gap 23 H Anisocytosis 2+ Aspartate Amino Transf (AST/SGOT) 16 Band Neutrophils % 0.0 Basophils # 0.0 Basophils % 0.4 Blood Morphology Comment Blood Urea Nitrogen 49 #H Calcium Level 8.0 L Carbon Dioxide Level 20 L Chloride Level 90 L Creatinine 4.97 #H Direct Bilirubin 0.50 H Eosinophils # 0.1 Eosinophils % 1.2 Globulin 2.20 Glucose Level 193 Hematocrit 35.0 #L Hemoglobin 11.8 #L Hypochromasia 1+ Indirect Bilirubin 0.8 Lymphocytes # 0.5 L Lymphocytes % 5.5 L Mean Corpuscular Hemoglobin 29.0 Mean Corpuscular Hemoglobin Concent 33.6 Mean Corpuscular Volume 86.3 Mean Platelet Volume 6.5 L Monocytes # 0.9 Monocytes % 9.8 Neutrophils # 7.5 Neutrophils % 83.1 H Nucleated Red Blood Cells # 0.0 Nucleated Red Blood Cells % 0.0 Platelet Count 228 # Platelet Estimate PLT APPEAR ADEQUATE Potassium Level 4.1 # Red Blood Count 4.06 #L Red Cell Distribution Width 20.0 H Sodium Level 129 L Total Bilirubin 1.3 Total Protein 5.5 L White Blood Count 9.0 # Test 11/24/16 06:00 11/24/16 07:39 Alanine Aminotransferase (ALT/SGPT) 21 Albumin 3.0 L Albumin/Globulin Ratio 1.36 Alkaline Phosphatase 95 Anion Gap 23 H Aspartate Amino Transf (AST/SGOT) 29 # Basophils # 0.0 Basophils % 0.2 Blood Morphology Comment Blood Urea Nitrogen 53 H Calcium Level 7.9 L Carbon Dioxide Level 21 Chloride Level 91 L Creatinine 5.50 H Direct Bilirubin 0.10 # Eosinophils # 0.1 Eosinophils % 1.3 Globulin 2.20 Glucose Level 162 Hematocrit 34.3 L Hemoglobin 11.6 L Indirect Bilirubin 0.6 Lymphocytes # 0.7 L Lymphocytes % 6.8 L Mean Corpuscular Hemoglobin 29.3 Mean Corpuscular Hemoglobin Concent 34.0 Mean Corpuscular Volume 86.1 Mean Platelet Volume 6.8 L Monocytes # 1.1 H Monocytes % 10.3 Neutrophils # 8.9 H Neutrophils % 81.4 H Nucleated Red Blood Cells # 0.0 Nucleated Red Blood Cells % 0.0 Platelet Count 241 Potassium Level 4.3 Red Blood Count 3.98 L Red Cell Distribution Width 20.1 H Sodium Level 131 L Total Bilirubin 0.7 Total Protein 5.2 L White Blood Count 10.9 #H Bedside Glucose 186 Medications Medications Current Medications Lorazepam (Ativan) 0.5 mg Q8H PRN PO ANXIETY; Start 11/20/16 at 12:00 Ondansetron HCl (Zofran Inj) 4 mg Q6H PRN IV NAUSEA AND/OR VOMITING Last administered on 11/23/16 05:32; Admin Dose 4 MG; Start 11/20/16 at 12:00 Aspirin (Aspirin) 81 mg DAILY PO Last administered on 11/24/16 09:07; Admin Dose 81 MG; Start 11/21/16 at 09:00 Nitroglycerin (Nitroglycerin (Sl Tab) 0.4 Mg) 1 tab Q5M PRN SL CHEST PAIN; Start 11/20/16 at 12:00 Acetaminophen (Tylenol Tab) 650 mg Q6H PRN PO PAIN LEVEL 1-3 OR FEVER; Start at 12:00 Morphine Sulfate (morphine) 2 mg Q4H PRN IV PAIN LEVEL 7-10 Last administered on 11/24/16 07:35; Admin Dose 2 MG; Start 11/20/16 at 12:00 Zolpidem Tartrate (Ambien) 5 mg QHS PRN PO INSOMNIA; Start 11/20/16 at 12:00 Pantoprazole (Protonix Tab) 40 mg DAILY@06 PO Last administered on 11/24/16 05: 14; Admin Dose 40 MG; Start 11/21/16 at 06:00 Miscellaneous Information 1 ea NOTE XX ; Start 11/20/16 at 12:30 Glucose (Glutose) 15 gm Q15M PRN PO DECREASED GLUCOSE; Start 11/20/16 at 12:30 Glucose (Glutose) 22.5 gm Q15M PRN PO DECREASED GLUCOSE; Start 11/20/16 at 12: 30 Dextrose (D50w Syringe) 25 ml Q15M PRN IV DECREASED GLUCOSE; Start 11/20/16 at 12:30 Dextrose (D50w Syringe) 50 ml Q15M PRN IV DECREASED GLUCOSE; Start 11/20/16 at 12:30 Glucagon (Glucagen) 1 mg Q15M PRN IM DECREASED GLUCOSE; Start 11/20/16 at 12:30 Glucose (Glutose) 15 gm Q15M PRN BUCCAL DECREASED GLUCOSE; Start 11/20/16 at 12 :30 Levothyroxine Sodium 125 mcg 125 mcg DAILY@06 PO Last administered on 11/24/16 05:14; Admin Dose 125 MCG; Start 11/22/16 at 06:00 Dopamine HCl/ Dextrose 250 ml @ 5.318 mls/ hr TITRATE IV Last administered on 11/23/16 07:11; Admin Dose 13.294 MLS/HR; Start 11/23/16 at 06:30 Norepinephrine/ Dextrose (Levophed/D5W) 500 ml @ 1.87 mls/hr TITRATE IV Last administered on 11/24/16 08:52; Admin Dose 31.87 MLS/HR; Start 11/23/16 at 14:00 Midodrine (Proamatine) 5 mg TID@,,17 GTB Last administered on 11/24/16 09: 07; Admin Dose 5 MG; Start 11/23/16 at 13:00 Guaifenesin (Robitussin Liquid Cup) 100 mg Q6H PRN PO COUGH; Start 11/23/16 at 16:30 Insulin Glargine (Lantus) 18 unit HS SC Last administered on 11/23/16 21:04; Admin Dose 18 UNIT; Start 11/23/16 at 21:00 Phentolamine Mesylate (Regitene) 5 mg ONCE SC ; Start 11/24/16 at 07:00; Stop 11/24/16 at 12:00 Harpreet Cee DO Nov 24, 2016 10:46
[2016-11-24] MEDS ORDERED: PHENTOLAMINE 5 MG INJ SC ONE (11:30)
--- NOTE | 2016-11-24 12:52 | PN ---
Date/Time of Note Date/Time of Note DATE: 11/24/16 TIME: 12:46 Assessment/Plan VTE Prophylaxis VTE Prophylaxis Intervention: SCD's Lines/Catheters IV Catheter Type (from [facility]): Peripheral IV Urinary Cath still in place: No Reason Cath still needed: urinary retention Assessment/Plan Chief Complaint/Hosp Course ASSESSMENT AND PLAN: - Severe hypotension requiring pressors, continue pressors for hemodynamic support, ICU care. - Congestive heart failure exacerbation with ejection fraction of 20% per last echo. Continue to remove fluids with hemodialysis. - Ascites, status post paracentesis. Patient was increased ascites today, paracentesis today. - End-stage renal disease, hemodialysis-dependent. Dr. Maddox is following from nephrology standpoint. Continue patient on hemodialysis. - Coronary artery disease status post coronary artery bypass graft. Continue patient on aspirin and Coreg. Dr. Cee is following from cardiology standpoint. - Hypothyroidism. TSH is 14, Synthroid increased to 125. - Diabetes mellitus type 2. Continue to monitor blood sugar with mild algorithm scale, NovoLog coverage. - Hemodialysis access, status post right AV fistulogram by Dr. Loco, vascular surgery on 11/21. - Liver cirrhosis and portal hypertension. Dr. Kirkpatrick is following in gastroenterology consultation. Continue Protonix for peptic ulcer disease prophylaxis. Further recommendations based on clinical course. Plan of care discussed with Dr. Vick. Problems: Exam/Review of Systems Vital Signs Vitals Vital Signs Date Time Temp Pulse Resp B/P Pulse Ox O2 Delivery O2 Flow Rate FiO2 11/24/16 12:15 87 16 85/31 97 11/24/16 12:00 97.8 11/24/16 08:00 Nasal Cannula 2.0 11/20/16 10:22 21 Intake and Output 11/23/16 11/23/16 11/24/16 15:00 23:00 07:00 Intake Total 1387.080 ml 1243.68 ml 334.35 ml Output Total 3300 ml Balance 1387.080 ml -2056.32 ml 334.35 ml Exam GENERAL: well-developed, well-nourished male, currently is awake, alert. HEENT: Head is atraumatic, normocephalic. NECK: Supple. JVD is present, no cervical lymphadenopathy. CHEST: Lungs are clear bilaterally, slightly diminished at the bases. CARDIOVASCULAR: Regular rhythm and rate, normal S1, S2. No murmurs, gallops, clicks, rubs noted. The patient has a left chest permanent pacemaker with AICD. GASTROINTESTINAL: Abdomen is protuberant, soft, slightly distended, nontender. Bowel sounds present. No guarding, no rebound tenderness. SKIN: No rash, petechiae. EXTREMITIES: The patient has bilateral lower extremity edema, 3+. NEUROLOGIC: The patient is awake, alert and oriented x3. Results Result Diagram: 11/24/16 0600 11/24/16 0600 Results 24 hrs Laboratory Tests Test 11/23/16 17:33 11/23/16 20:58 11/24/16 01:00 11/24/16 06:00 Bedside Glucose 209 206 Alanine Aminotransferase (ALT/SGPT) 27 21 Albumin 3.3 3.0 L Albumin/Globulin Ratio 1.50 1.36 Alkaline Phosphatase 109 95 Anion Gap 23 H 23 H Anisocytosis 2+ Aspartate Amino Transf (AST/SGOT) 16 29 # Band Neutrophils % 0.0 Basophils # 0.0 0.0 Basophils % 0.4 0.2 Blood Morphology Comment Blood Urea Nitrogen 49 #H 53 H Calcium Level 8.0 L 7.9 L Carbon Dioxide Level 20 L 21 Chloride Level 90 L 91 L Creatinine 4.97 #H 5.50 H Direct Bilirubin 0.50 H 0.10 # Eosinophils # 0.1 0.1 Eosinophils % 1.2 1.3 Globulin 2.20 2.20 Glucose Level 193 162 Hematocrit 35.0 #L 34.3 L Hemoglobin 11.8 #L 11.6 L Hypochromasia 1+ Indirect Bilirubin 0.8 0.6 Lymphocytes # 0.5 L 0.7 L Lymphocytes % 5.5 L 6.8 L Mean Corpuscular Hemoglobin 29.0 29.3 Mean Corpuscular Hemoglobin Concent 33.6 34.0 Mean Corpuscular Volume 86.3 86.1 Mean Platelet Volume 6.5 L 6.8 L Monocytes # 0.9 1.1 H Monocytes % 9.8 10.3 Neutrophils # 7.5 8.9 H Neutrophils % 83.1 H 81.4 H Nucleated Red Blood Cells # 0.0 0.0 Nucleated Red Blood Cells % 0.0 0.0 Platelet Count 228 # 241 Platelet Estimate PLT APPEAR ADEQUATE Potassium Level 4.1 # 4.3 Red Blood Count 4.06 #L 3.98 L Red Cell Distribution Width 20.0 H 20.1 H Sodium Level 129 L 131 L Total Bilirubin 1.3 0.7 Total Protein 5.5 L 5.2 L White Blood Count 9.0 # 10.9 #H Test 11/24/16 07:39 Bedside Glucose 186 Medications Medications Current Medications Lorazepam (Ativan) 0.5 mg Q8H PRN PO ANXIETY; Start 11/20/16 at 12:00 Ondansetron HCl (Zofran Inj) 4 mg Q6H PRN IV NAUSEA AND/OR VOMITING Last administered on 11/23/16 05:32; Admin Dose 4 MG; Start 11/20/16 at 12:00 Aspirin (Aspirin) 81 mg DAILY PO Last administered on 11/24/16 09:07; Admin Dose 81 MG; Start 11/21/16 at 09:00 Nitroglycerin (Nitroglycerin (Sl Tab) 0.4 Mg) 1 tab Q5M PRN SL CHEST PAIN; Start 11/20/16 at 12:00 Acetaminophen (Tylenol Tab) 650 mg Q6H PRN PO PAIN LEVEL 1-3 OR FEVER; Start at 12:00 Morphine Sulfate (morphine) 2 mg Q4H PRN IV PAIN LEVEL 7-10 Last administered on 11/24/16 07:35; Admin Dose 2 MG; Start 11/20/16 at 12:00 Zolpidem Tartrate (Ambien) 5 mg QHS PRN PO INSOMNIA; Start 11/20/16 at 12:00 Pantoprazole (Protonix Tab) 40 mg DAILY@06 PO Last administered on 11/24/16 05: 14; Admin Dose 40 MG; Start 11/21/16 at 06:00 Miscellaneous Information 1 ea NOTE XX ; Start 11/20/16 at 12:30 Glucose (Glutose) 15 gm Q15M PRN PO DECREASED GLUCOSE; Start 11/20/16 at 12:30 Glucose (Glutose) 22.5 gm Q15M PRN PO DECREASED GLUCOSE; Start 11/20/16 at 12: 30 Dextrose (D50w Syringe) 25 ml Q15M PRN IV DECREASED GLUCOSE; Start 11/20/16 at 12:30 Dextrose (D50w Syringe) 50 ml Q15M PRN IV DECREASED GLUCOSE; Start 1/30/17 at 12:30 Glucagon (Glucagen) 1 mg Q15M PRN IM DECREASED GLUCOSE; Start 11/20/16 at 12:30 Glucose (Glutose) 15 gm Q15M PRN BUCCAL DECREASED GLUCOSE; Start 11/20/16 at 12 :30 Levothyroxine Sodium 125 mcg 125 mcg DAILY@06 PO Last administered on 11/24/16 05:14; Admin Dose 125 MCG; Start 11/22/16 at 06:00 Dopamine HCl/ Dextrose 250 ml @ 5.318 mls/ hr TITRATE IV Last administered on 11/23/16 07:11; Admin Dose 13.294 MLS/HR; Start 11/23/16 at 06:30 Norepinephrine/ Dextrose (Levophed/D5W) 500 ml @ 1.87 mls/hr TITRATE IV Last administered on 11/24/16 08:52; Admin Dose 31.87 MLS/HR; Start 11/23/16 at 14:00 Midodrine (Proamatine) 5 mg TID@09,,17 GTB Last administered on 11/24/16 09: 07; Admin Dose 5 MG; Start 11/23/16 at 13:00 Guaifenesin (Robitussin Liquid Cup) 100 mg Q6H PRN PO COUGH; Start 11/23/16 at 16:30 Insulin Glargine (Lantus) 18 unit HS SC Last administered on 11/23/16 21:04; Admin Dose 18 UNIT; Start 11/23/16 at 21:00 DICKSON GROSSMAN Nov 24, 2016 12:52
[2016-11-24] MEDS: GUAIFENESIN 20 MG/ML 5ML CUP PO PRN (13:32)
--- NOTE | 2016-11-24 15:06 | RADRPT ---
PROCEDURE: XR Chest. CLINICAL INDICATION: Assess PICC line catheter placement. TECHNIQUE: Single frontal view of the chest was obtained COMPARISON: Chest x-ray November 21, 2016. FINDINGS: The heart is enlarged. There are bibasilar densities which may be the result of compressive atelect asis or infiltrate. The right lower lobe density has increased since the prior study. A PICC line e nters via the left arm with its tip in the superior vena cava. The heart is enlarged. A mediastino john was performed. There are vascular calcifications in the aortic arch. There is a bipolar cardi ac pacemaker with electrode leads at the level of the right atrium and right ventricle. IMPRESSION: 1. Cardiomegaly with a stable left pleural effusion. 2. Status post median sternotomy. 3. A equilibration the pulmonary vasculature may reflect mild pulmonary venous obstruction. There are worsening bibasilar infiltrates or atelectasis when compared to the prior exam. 4. Cardiac pacemaker/internal cardiac defibrillator combination device. 5. No pneumothorax is identified. RPTAT:AAJJ Physician Santos Date Time Electronically viewed and signed by Physician Santos on 11/24/2016 15:06 [facility]/
--- NOTE | 2016-11-24 15:08 | RADRPT ---
PROCEDURE: US guidance for PICC line CLINICAL INDICATION: PICC line placement TECHNIQUE: Multiple real-time images were acquired of the patient's arm utilizing a high resolutio n transducer. This was performed by the PICC line nurse for venous access. COMPARISON: None FINDINGS: Ultrasound guidance for PICC line placement. IMPRESSION: Ultrasound guidance for PICC line placement. RPTAT: AA .Skyler Wilde MD, MD Date Time Electronically viewed and signed by .Skyler Wilde MD, on 11/24/2016 15:07 .S/
--- NOTE | 2016-11-24 20:10 | CONS ---
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 (2) ESRD (end stage renal disease) Status: Chronic Comment: Pt had successful HD yesterday with UF resulting in partiaal correction of his hyponatremia (3) Anemia Status: Chronic (4) Ascites Status: Chronic Comment: s/p multiple paracentases Qualifiers: Ascites type: other type Qualified Code: R18.8 - Other ascites Consultation Date/Type/Reason Admit Date/Time Nov 20, 2016 at 09:34 Initial Consult Date 11/21/16 Type of Consultation: Renal Referring Provider: PARRISH DIEGO MD 24 HR Interval Summary Constitutional: improved, no complaints Exam/Review of Systems Vital Signs Vitals Vital Signs Date Time Temp Pulse Resp B/P Pulse Ox O2 Delivery O2 Flow Rate FiO2 11/24/16 19:15 84 12 104/31 98 11/24/16 19:00 Room Air 11/24/16 16:00 98.3 11/24/16 08:00 2.0 11/20/16 10:22 21 Intake and Output 11/23/16 11/23/16 11/24/16 15:00 23:00 07:00 Intake Total 1387.080 ml 1243.68 ml 334.35 ml Output Total 3300 ml Balance 1387.080 ml -2056.32 ml 334.35 ml Exam Constitutional: alert, oriented Head: atraumatic, normocephalic Eyes: EOMI, PERRL, nl conjunctiva, nl lids, nl sclera ENMT: nl external ears & nose, nl lips & teeth, nl nasal mucosa & septum Neck: non-tender, supple Respiratory: clear to auscultation, normal air movement Cardiovascular: nl pulses, regular rate and rhythm Gastrointestinal: distended Musculoskeletal: nl extremities to inspection, nl gait and stance Extremities: normal pulses 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: IMITATION [employer] MECH[employer]IC 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, nl mental status, nl speech, nl strength Skin: nl turgor, other (pale), No rash or lesions Additional Comments SNa has improved Results Result Diagram: 11/24/16 0600 11/24/16 0600 Results 24 hrs Laboratory Tests Test 11/23/16 20:58 11/24/16 01:00 11/24/16 06:00 11/24/16 07:39 Bedside Glucose 206 186 Alanine Aminotransferase (ALT/SGPT) 27 21 Albumin 3.3 3.0 L Albumin/Globulin Ratio 1.50 1.36 Alkaline Phosphatase 109 95 Anion Gap 23 H 23 H Anisocytosis 2+ Aspartate Amino Transf (AST/SGOT) 16 29 # Band Neutrophils % 0.0 Basophils # 0.0 0.0 Basophils % 0.4 0.2 Blood Morphology Comment Blood Urea Nitrogen 49 #H 53 H Calcium Level 8.0 L 7.9 L Carbon Dioxide Level 20 L 21 Chloride Level 90 L 91 L Creatinine 4.97 #H 5.50 H Direct Bilirubin 0.50 H 0.10 # Eosinophils # 0.1 0.1 Eosinophils % 1.2 1.3 Globulin 2.20 2.20 Glucose Level 193 162 Hematocrit 35.0 #L 34.3 L Hemoglobin 11.8 #L 11.6 L Hypochromasia 1+ Indirect Bilirubin 0.8 0.6 Lymphocytes # 0.5 L 0.7 L Lymphocytes % 5.5 L 6.8 L Mean Corpuscular Hemoglobin 29.0 29.3 Mean Corpuscular Hemoglobin Concent 33.6 34.0 Mean Corpuscular Volume 86.3 86.1 Mean Platelet Volume 6.5 L 6.8 L Monocytes # 0.9 1.1 H Monocytes % 9.8 10.3 Neutrophils # 7.5 8.9 H Neutrophils % 83.1 H 81.4 H Nucleated Red Blood Cells # 0.0 0.0 Nucleated Red Blood Cells % 0.0 0.0 Platelet Count 228 # 241 Platelet Estimate PLT APPEAR ADEQUATE Potassium Level 4.1 # 4.3 Red Blood Count 4.06 #L 3.98 L Red Cell Distribution Width 20.0 H 20.1 H Sodium Level 129 L 131 L Total Bilirubin 1.3 0.7 Total Protein 5.5 L 5.2 L White Blood Count 9.0 # 10.9 #H Test 11/24/16 12:38 11/24/16 17:25 Bedside Glucose 210 188 Medications Medications Current Medications Lorazepam (Ativan) 0.5 mg Q8H PRN PO ANXIETY; Start 11/20/16 at 12:00 Ondansetron HCl (Zofran Inj) 4 mg Q6H PRN IV NAUSEA AND/OR VOMITING Last administered on 11/23/16 05:32; Admin Dose 4 MG; Start 11/20/16 at 12:00 Aspirin (Aspirin) 81 mg DAILY PO Last administered on 11/24/16 09:07; Admin Dose 81 MG; Start 11/21/16 at 09:00 Nitroglycerin (Nitroglycerin (Sl Tab) 0.4 Mg) 1 tab Q5M PRN SL CHEST PAIN; Start 11/20/16 at 12:00 Acetaminophen (Tylenol Tab) 650 mg Q6H PRN PO PAIN LEVEL 1-3 OR FEVER; Start at 12:00 Morphine Sulfate (morphine) 2 mg Q4H PRN IV PAIN LEVEL 7-10 Last administered on 11/24/16 18:10; Admin Dose 2 MG; Start 11/20/16 at 12:00 Zolpidem Tartrate (Ambien) 5 mg QHS PRN PO INSOMNIA; Start 11/20/16 at 12:00 Pantoprazole (Protonix Tab) 40 mg DAILY@06 PO Last administered on 11/24/16 05: 14; Admin Dose 40 MG; Start 11/21/16 at 06:00 Miscellaneous Information 1 ea NOTE XX ; Start 11/20/16 at 12:30 Glucose (Glutose) 15 gm Q15M PRN PO DECREASED GLUCOSE; Start 11/20/16 at 12:30 Glucose (Glutose) 22.5 gm Q15M PRN PO DECREASED GLUCOSE; Start 11/20/16 at 12: 30 Dextrose (D50w Syringe) 25 ml Q15M PRN IV DECREASED GLUCOSE; Start 11/20/16 at 12:30 Dextrose (D50w Syringe) 50 ml Q15M PRN IV DECREASED GLUCOSE; Start 11/20/16 at 12:30 Glucagon (Glucagen) 1 mg Q15M PRN IM DECREASED GLUCOSE; Start 11/20/16 at 12:30 Glucose (Glutose) 15 gm Q15M PRN BUCCAL DECREASED GLUCOSE; Start 11/20/16 at 12 :30 Levothyroxine Sodium 125 mcg 125 mcg DAILY@06 PO Last administered on 11/24/16 05:14; Admin Dose 125 MCG; Start 11/22/16 at 06:00 Dopamine HCl/ Dextrose 250 ml @ 5.318 mls/ hr TITRATE IV Last administered on 11/23/16 07:11; Admin Dose 13.294 MLS/HR; Start 11/23/16 at 06:30 Norepinephrine/ Dextrose (Levophed/D5W) 500 ml @ 1.87 mls/hr TITRATE IV Last administered on 11/24/16 08:52; Admin Dose 31.87 MLS/HR; Start 11/23/16 at 14:00 Guaifenesin (Robitussin Liquid Cup) 100 mg Q6H PRN PO COUGH Last administered on 11/24/16 13:32; Admin Dose 100 MG; Start 11/23/16 at 16:30 Insulin Glargine (Lantus) 18 unit HS SC Last administered on 11/23/16 21:04; Admin Dose 18 UNIT; Start 11/23/16 at 21:00 IV Flush (NS 10 ml) 10 ml PRN PRN IV IV PROTOCOL; Start 11/24/16 at 15:30 MILADY ANDERSON MD Nov 24, 2016 20:10
--- NOTE | 2016-11-24 20:18 | CONS ---
Date/Time of Note Date/Time of Note DATE: 11/24/16 TIME: 20:16 Assessment/Plan Assessment/Plan Additional Assessment/Plan Additional Assessment/Plan IMPRESSION: 1. Congestive heart failure, status post automatic implantable cardioverter- defibrillator.feels better,no s.o.b,EF of 20% 2. End-stage renal disease on dialysis. 3. Coronary artery disease status post coronary artery bypass graft. 4. Diabetes mellitus. 5. Hypothyroidism. 6. Ascites. 7. Anemia. 8. Mild elevation of alkaline phosphatase. 9. Cirrhosis of liver with portal hypertension. 10. pt.became hypotensive and transferred to ICU for pressor support 11.s/p large volume paracentesis on 11/22/15 12.anemia r/o gi bleeding PLAN: 1. At this point, is to continue with dialysis and take out more fluid during dialysis. 2. Paracentesis on a need basis under the cover of albumin. 3. Continue all his medication. 4. The patient is not a candidate for TIPS given his renal failure and cardiomyopathy. 5. He has refractory ascites, 6. no paracentesis until BP stabilized Consultation Date/Type/Reason Admit Date/Time Nov 20, 2016 at 09:34 Initial Consult Date 11/21/16 Type of Consultation: Renal Referring Provider: PARRISH DIEGO MD 24 HR Interval Summary Free Text/Dictation ABDOMINAL PAIN NO DYSPNEA Exam/Review of Systems Vital Signs Vitals Vital Signs Date Time Temp Pulse Resp B/P Pulse Ox O2 Delivery O2 Flow Rate FiO2 11/24/16 19:15 84 12 104/31 98 11/24/16 19:00 Room Air 11/24/16 16:00 98.3 11/24/16 08:00 2.0 11/20/16 10:22 21 Intake and Output 11/23/16 11/23/16 11/24/16 15:00 23:00 07:00 Intake Total 1387.080 ml 1243.68 ml 334.35 ml Output Total 3300 ml Balance 1387.080 ml -2056.32 ml 334.35 ml Exam Constitutional: alert, oriented, well developed Psych: nl mood/affect, no complaints Neck: non-tender, supple Respiratory: clear to auscultation, normal air movement Cardiovascular: nl pulses, regular rate and rhythm Gastrointestinal: ascites 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, nl mental status, nl speech, nl strength Results Result Diagram: 11/24/16 0600 11/24/16 0600 Results 24 hrs Laboratory Tests Test 11/23/16 20:58 11/24/16 01:00 11/24/16 06:00 11/24/16 07:39 Bedside Glucose 206 186 Alanine Aminotransferase (ALT/SGPT) 27 21 Albumin 3.3 3.0 L Albumin/Globulin Ratio 1.50 1.36 Alkaline Phosphatase 109 95 Anion Gap 23 H 23 H Anisocytosis 2+ Aspartate Amino Transf (AST/SGOT) 16 29 # Band Neutrophils % 0.0 Basophils # 0.0 0.0 Basophils % 0.4 0.2 Blood Morphology Comment Blood Urea Nitrogen 49 #H 53 H Calcium Level 8.0 L 7.9 L Carbon Dioxide Level 20 L 21 Chloride Level 90 L 91 L Creatinine 4.97 #H 5.50 H Direct Bilirubin 0.50 H 0.10 # Eosinophils # 0.1 0.1 Eosinophils % 1.2 1.3 Globulin 2.20 2.20 Glucose Level 193 162 Hematocrit 35.0 #L 34.3 L Hemoglobin 11.8 #L 11.6 L Hypochromasia 1+ Indirect Bilirubin 0.8 0.6 Lymphocytes # 0.5 L 0.7 L Lymphocytes % 5.5 L 6.8 L Mean Corpuscular Hemoglobin 29.0 29.3 Mean Corpuscular Hemoglobin Concent 33.6 34.0 Mean Corpuscular Volume 86.3 86.1 Mean Platelet Volume 6.5 L 6.8 L Monocytes # 0.9 1.1 H Monocytes % 9.8 10.3 Neutrophils # 7.5 8.9 H Neutrophils % 83.1 H 81.4 H Nucleated Red Blood Cells # 0.0 0.0 Nucleated Red Blood Cells % 0.0 0.0 Platelet Count 228 # 241 Platelet Estimate PLT APPEAR ADEQUATE Potassium Level 4.1 # 4.3 Red Blood Count 4.06 #L 3.98 L Red Cell Distribution Width 20.0 H 20.1 H Sodium Level 129 L 131 L Total Bilirubin 1.3 0.7 Total Protein 5.5 L 5.2 L White Blood Count 9.0 # 10.9 #H Test 11/24/16 12:38 11/24/16 17:25 Bedside Glucose 210 188 Medications Medications Current Medications Lorazepam (Ativan) 0.5 mg Q8H PRN PO ANXIETY; Start 11/20/16 at 12:00 Ondansetron HCl (Zofran Inj) 4 mg Q6H PRN IV NAUSEA AND/OR VOMITING Last administered on 11/23/16 05:32; Admin Dose 4 MG; Start 11/20/16 at 12:00 Aspirin (Aspirin) 81 mg DAILY PO Last administered on 11/24/16 09:07; Admin Dose 81 MG; Start 11/21/16 at 09:00 Nitroglycerin (Nitroglycerin (Sl Tab) 0.4 Mg) 1 tab Q5M PRN SL CHEST PAIN; Start 11/20/16 at 12:00 Acetaminophen (Tylenol Tab) 650 mg Q6H PRN PO PAIN LEVEL 1-3 OR FEVER; Start at 12:00 Morphine Sulfate (morphine) 2 mg Q4H PRN IV PAIN LEVEL 7-10 Last administered on 11/24/16 18:10; Admin Dose 2 MG; Start 11/20/16 at 12:00 Zolpidem Tartrate (Ambien) 5 mg QHS PRN PO INSOMNIA; Start 11/20/16 at 12:00 Pantoprazole (Protonix Tab) 40 mg DAILY@06 PO Last administered on 11/24/16 05: 14; Admin Dose 40 MG; Start 11/21/16 at 06:00 Miscellaneous Information 1 ea NOTE XX ; Start 11/20/16 at 12:30 Glucose (Glutose) 15 gm Q15M PRN PO DECREASED GLUCOSE; Start 11/20/16 at 12:30 Glucose (Glutose) 22.5 gm Q15M PRN PO DECREASED GLUCOSE; Start 11/20/16 at 12: 30 Dextrose (D50w Syringe) 25 ml Q15M PRN IV DECREASED GLUCOSE; Start 11/20/16 at 12:30 Dextrose (D50w Syringe) 50 ml Q15M PRN IV DECREASED GLUCOSE; Start 11/20/16 at 12:30 Glucagon (Glucagen) 1 mg Q15M PRN IM DECREASED GLUCOSE; Start 11/20/16 at 12:30 Glucose (Glutose) 15 gm Q15M PRN BUCCAL DECREASED GLUCOSE; Start 11/20/16 at 12 :30 Levothyroxine Sodium 125 mcg 125 mcg DAILY@06 PO Last administered on 11/24/16 05:14; Admin Dose 125 MCG; Start 11/22/16 at 06:00 Dopamine HCl/ Dextrose 250 ml @ 5.318 mls/ hr TITRATE IV Last administered on 11/23/16 07:11; Admin Dose 13.294 MLS/HR; Start 11/23/16 at 06:30 Norepinephrine/ Dextrose (Levophed/D5W) 500 ml @ 1.87 mls/hr TITRATE IV Last administered on 11/24/16 08:52; Admin Dose 31.87 MLS/HR; Start 11/23/16 at 14:00 Guaifenesin (Robitussin Liquid Cup) 100 mg Q6H PRN PO COUGH Last administered on 11/24/16 13:32; Admin Dose 100 MG; Start 11/23/16 at 16:30 Insulin Glargine (Lantus) 18 unit HS SC Last administered on 11/23/16 21:04; Admin Dose 18 UNIT; Start 11/23/16 at 21:00 IV Flush (NS 10 ml) 10 ml PRN PRN IV IV PROTOCOL; Start 11/24/16 at 15:30 LOR MASON MD Nov 24, 2016 20:18
[2016-11-24] MEDS: INSULIN GLARGINE [LANtus] 3 ML PEN SC SCH (21:11)
[2016-11-24 22:05] LABS: POTASSIUM 4.6 mmol/L (3.5-5.1)
[2016-11-24 22:08] LABS: CREATININE 5.88 mg/dl (0.61-1.24)
[2016-11-24 22:09] LABS: CALCIUM 7.2 mg/dl (8.4-10.2); MAGNESIUM 1.8 mg/dl (1.7-2.5)
[2016-11-25] VITALS (88 sets, daily range): BP systolic 58–150; BP diastolic 10–130; PULSE 73–115; RESP 9–27
[2016-11-25] MEDS ORDERED: MAGNESIUM SULFATE 1 GM/D5W 100 ML IVPB ONE (00:30)
[2016-11-25] MEDS: morphine 2 MG INJ IV PRN ×5 (02:56→21:58)
[2016-11-25 05:08] LABS: POTASSIUM 4.5 mmol/L (3.5-5.1)
[2016-11-25 05:10] LABS: CREATININE 5.97 mg/dl (0.61-1.24)
[2016-11-25 05:16] LABS: HEMATOCRIT 31.3 % (42.0-52.0); HEMOGLOBIN 10.6 g/dl (14.0-18.0); RED BLOOD COUNT 3.66 10^6/ul (4.70-6.10); WHITE BLOOD COUNT 11.4 10^3/ul (4.8-10.8)
[2016-11-25 05:17] LABS: BASOPHIL # 0.1 10^3/ul (0.0-0.1); BASOPHILS % 0.7 % (0.0-2.0); EOSINOPHILS # 0.3 10^3/ul (0.0-0.5); EOSINOPHILS % 2.9 % (0.0-7.0); LYMPHOCYTES # 1.2 10^3/ul (0.8-2.9); LYMPHOCYTES % 10.4 % (15.0-51.0); MEAN CORPUSCULAR HGB CONC 33.9 g/dl (32.0-37.0); MEAN CORPUSCULAR VOLUME 85.5 fl (82.0-101.0); MEAN PLATELET VOLUME 8.8 fl (7.4-10.4); MONOCYTE # 1.4 10^3/ul (0.3-0.9); MONOCYTES % 11.9 % (0.0-11.0); NEUTROPHIL # 8.4 10^3/ul (1.6-7.5); NEUTROPHILS % 73.3 % (39.0-77.0); PLATELET COUNT 245 10^3/UL (140-440); RED CELL DISTRIBUTION WIDTH 19.7 % (11.5-14.5)
[2016-11-25] MEDS: LEVOTHYROXINE 125 MCG TAB PO SCH (06:43)
[2016-11-25] MEDS: PANTOPRAZOLE (EC) 40 MG TAB PO SCH (06:43)
[2016-11-25] MEDS: INSULIN ASPART [NOVOLOG] 3 ML PEN SC SCH ×4 (07:35→20:47)
--- NOTE | 2016-11-25 07:37 | CONS ---
Date/Time of Note Date/Time of Note DATE: 11/25/16 TIME: 07:33 Assessment/Plan Assessment/Plan Additional Assessment/Plan 66 yo Male with 1) ESRD on HD 2) Hyperkalemia- Resolved 3) RT AVF Dysfunction S/p Fistulogram 4) Anemia, Chronic Dx 5) Anasarca 6) Liver disease, Ascites S/P Parcentesis 7) Hyponatremia 8) Hypotension, Likely Sepsis HD today Albumin with HD, UF as tolerated Free H20 Restiction Pressors as needed. Cont supportive care. Consultation Date/Type/Reason Admit Date/Time Nov 20, 2016 at 09:34 Initial Consult Date 11/21/16 Type of Consultation: Renal Referring Provider: DEMETRA BRUNO MD 24 HR Interval Summary Free Text/Dictation Run [place]ach last night. NO other events. Subjective hx not possible: pt critical status Exam/Review of Systems Vital Signs Vitals Vital Signs Date Time Temp Pulse Resp B/P Pulse Ox O2 Delivery O2 Flow Rate FiO2 11/25/16 07:15 87 13 111/71 95 Room Air 11/25/16 04:00 97.8 11/24/16 08:00 2.0 Intake and Output 11/24/16 11/24/16 11/25/16 15:00 23:00 07:00 Intake Total 654.96 ml 703.08 ml 321.85 ml Output Total 0 ml 0 ml 0 ml Balance 654.96 ml 703.08 ml 321.85 ml Exam Constitutional: No distress ENMT: mucosa pink and moist Respiratory: crackles/rales, No labored breathing Cardiovascular: edema, regular rate and rhythm Gastrointestinal: ascites, soft, No rebound or guarding, No tender 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: lethargic Skin: No diaphoresis Results Result Diagram: 11/25/16 0400 11/25/16 0400 Results 24 hrs Laboratory Tests Test 11/24/16 07:39 11/24/16 12:38 11/24/16 17:25 11/24/16 21:06 Bedside Glucose 186 210 188 104 Test 11/24/16 21:45 11/25/16 04:00 Anion Gap 19 H 19 H Blood Urea Nitrogen 60 H 61 H Calcium Level 7.2 L 7.0 L Carbon Dioxide Level 24 23 Chloride Level 87 L 85 L Creatinine 5.88 H 5.97 H Glucose Level 141 213 Magnesium Level 1.8 Potassium Level 4.6 4.5 Sodium Level 125 L 122 L Basophils # 0.1 Basophils % 0.7 Eosinophils # 0.3 Eosinophils % 2.9 Hematocrit 31.3 L Hemoglobin 10.6 L Hemoglobin A1c 6.7 H Lymphocytes # 1.2 Lymphocytes % 10.4 L Mean Corpuscular Hemoglobin 29.0 Mean Corpuscular Hemoglobin Concent 33.9 Mean Corpuscular Volume 85.5 Mean Platelet Volume 8.8 # Monocytes # 1.4 H Monocytes % 11.9 H Neutrophils # 8.4 H Neutrophils % 73.3 Nucleated Red Blood Cells # 0.0 Nucleated Red Blood Cells % 0.0 Platelet Count 245 Red Blood Count 3.66 L Red Cell Distribution Width 19.7 H White Blood Count 11.4 H Medications Medications Current Medications Lorazepam (Ativan) 0.5 mg Q8H PRN PO ANXIETY; Start 11/20/16 at 12:00 Ondansetron HCl (Zofran Inj) 4 mg Q6H PRN IV NAUSEA AND/OR VOMITING Last administered on 11/23/16 05:32; Admin Dose 4 MG; Start 11/20/16 at 12:00 Aspirin (Aspirin) 81 mg DAILY PO Last administered on 11/24/16 09:07; Admin Dose 81 MG; Start 11/21/16 at 09:00 Nitroglycerin (Nitroglycerin (Sl Tab) 0.4 Mg) 1 tab Q5M PRN SL CHEST PAIN; Start 11/20/16 at 12:00 Acetaminophen (Tylenol Tab) 650 mg Q6H PRN PO PAIN LEVEL 1-3 OR FEVER; Start at 12:00 Morphine Sulfate (morphine) 2 mg Q4H PRN IV PAIN LEVEL 7-10 Last administered on 11/25/16 02:56; Admin Dose 2 MG; Start 11/20/16 at 12:00 Zolpidem Tartrate (Ambien) 5 mg QHS PRN PO INSOMNIA; Start 11/20/16 at 12:00 Pantoprazole (Protonix Tab) 40 mg DAILY@06 PO Last administered on 11/25/16 06: 43; Admin Dose 40 MG; Start 11/21/16 at 06:00 Miscellaneous Information 1 ea NOTE XX ; Start 11/20/16 at 12:30 Glucose (Glutose) 15 gm Q15M PRN PO DECREASED GLUCOSE; Start 11/20/16 at 12:30 Glucose (Glutose) 22.5 gm Q15M PRN PO DECREASED GLUCOSE; Start 11/20/16 at 12: 30 Dextrose (D50w Syringe) 25 ml Q15M PRN IV DECREASED GLUCOSE; Start 11/20/16 at 12:30 Dextrose (D50w Syringe) 50 ml Q15M PRN IV DECREASED GLUCOSE; Start 11/20/16 at 12:30 Glucagon (Glucagen) 1 mg Q15M PRN IM DECREASED GLUCOSE; Start 11/20/16 at 12:30 Glucose (Glutose) 15 gm Q15M PRN BUCCAL DECREASED GLUCOSE; Start 11/20/16 at 12 :30 Levothyroxine Sodium 125 mcg 125 mcg DAILY@06 PO Last administered on 11/25/16 06:43; Admin Dose 125 MCG; Start 11/22/16 at 06:00 Dopamine HCl/ Dextrose 250 ml @ 5.318 mls/ hr TITRATE IV Last administered on 11/23/16 07:11; Admin Dose 13.294 MLS/HR; Start 11/23/16 at 06:30 Norepinephrine/ Dextrose (Levophed/D5W) 500 ml @ 1.87 mls/hr TITRATE IV Last administered on 11/25/16 00:42; Admin Dose 31.87 MLS/HR; Start 11/23/16 at 14:00 Guaifenesin (Robitussin Liquid Cup) 100 mg Q6H PRN PO COUGH Last administered on 11/24/16 13:32; Admin Dose 100 MG; Start 11/23/16 at 16:30 Insulin Glargine (Lantus) 18 unit HS SC Last administered on 11/24/16 21:11; Admin Dose 18 UNIT; Start 11/23/16 at 21:00 IV Flush (NS 10 ml) 10 ml PRN PRN IV IV PROTOCOL; Start 11/24/16 at 15:30 Procedures Procedures PROCEDURE: XR Chest. CLINICAL INDICATION: Assess PICC line catheter placement. TECHNIQUE: Single frontal view of the chest was obtained COMPARISON: Chest x-ray November 21, 2016. FINDINGS: The heart is enlarged. There are bibasilar densities which may be the result of compressive atelectasis or infiltrate. The right lower lobe density has increased since the prior study. A PICC line enters via the left arm with its tip in the superior vena cava. The heart is enlarged. A mediastinotomy was performed. There are vascular calcifications in the aortic arch. There is a bipolar cardiac pacemaker with electrode leads at the level of the right atrium and right ventricle. IMPRESSION: 1. Cardiomegaly with a stable left pleural effusion. 2. Status post median sternotomy. 3. A equilibration the pulmonary vasculature may reflect mild pulmonary venous obstruction. There are worsening bibasilar infiltrates or atelectasis when compared to the prior exam. 4. Cardiac pacemaker/internal cardiac defibrillator combination device. 5. No pneumothorax is identified. PARRISH DIEGO MD Nov 25, 2016 07:37
[2016-11-25] MEDS: ASPIRIN 81 MG TAB PO SCH (09:43)
--- NOTE | 2016-11-25 11:31 | PN ---
Date/Time of Note Date/Time of Note DATE: 11/25/16 TIME: 11:30 Assessment/Plan VTE Prophylaxis VTE Prophylaxis Intervention: other Lines/Catheters IV Catheter Type (from [facility] PICC Line Central line still needed: Yes Urinary Cath still in place: No Reason Cath still needed: skin wounds contaminated by urine Assessment/Plan Chief Complaint/Hosp Course 1) Severe hypotension requiring pressors, continue pressors for hemodynamic support, ICU care. 2) Congestive heart failure exacerbation with ejection fraction of 20% per last echo. Continue to remove fluids with hemodialysis. 3) Ascites, status post paracentesis. Patient was increased ascites today, paracentesis today. 4) End-stage renal disease, hemodialysis-dependent. Dr. Maddox is following from nephrology standpoint. Continue patient on hemodialysis. 5) Coronary artery disease status post coronary artery bypass graft. Continue patient on aspirin and Coreg. Dr. Cee is following from cardiology standpoint. 6) Hypothyroidism. TSH is 14, Synthroid increased to 125. 7) Diabetes mellitus type 2. Continue to monitor blood sugar with mild algorithm scale, NovoLog coverage. - Hemodialysis access, status post right AV fistulogram by Dr. Loco, vascular surgery on 11/21. - Liver cirrhosis and portal hypertension. Dr. Kirkpatrick is following in gastroenterology consultation. Problems: Subjective 24 Hr Interval Summary Free Text/Dictation Patient is comfortably, having dialysis at the moment Exam/Review of Systems Vital Signs Vitals Vital Signs Date Time Temp Pulse Resp B/P Pulse Ox O2 Delivery O2 Flow Rate FiO2 11/25/16 11:00 89 22 108/35 100 Room Air 11/25/16 08:00 97.5 11/24/16 08:00 2.0 Intake and Output 11/24/16 11/24/16 11/25/16 15:00 23:00 07:00 Intake Total 654.96 ml 703.08 ml 321.85 ml Output Total 0 ml 0 ml 0 ml Balance 654.96 ml 703.08 ml 321.85 ml Exam Constitutional: well developed Head: atraumatic, normocephalic Neck: supple Respiratory: clear to auscultation Cardiovascular: regular rate and rhythm Gastrointestinal: soft Extremities: normal pulses Results Result Diagram: 11/25/16 0400 11/25/16 0400 Results 24 hrs Laboratory Tests Test 11/24/16 12:38 11/24/16:25 11/24/16 21:06 11/24/16 21:45 Bedside Glucose 210 188 104 Anion Gap 19 H Blood Urea Nitrogen 60 H Calcium Level 7.2 L Carbon Dioxide Level 24 Chloride Level 87 L Creatinine 5.88 H Glucose Level 141 Magnesium Level 1.8 Potassium Level 4.6 Sodium Level 125 L Test 11/25/16 04:00 11/25/16 07:47 11/25/16 07:57 11/25/16 11:22 Anion Gap 19 H Basophils # 0.1 Basophils % 0.7 Blood Urea Nitrogen 61 H Calcium Level 7.0 L Carbon Dioxide Level 23 Chloride Level 85 L Creatinine 5.97 H Eosinophils # 0.3 Eosinophils % 2.9 Glucose Level 213 Hematocrit 31.3 L Hemoglobin 10.6 L Hemoglobin A1c 6.7 H Lymphocytes # 1.2 Lymphocytes % 10.4 L Mean Corpuscular Hemoglobin 29.0 Mean Corpuscular Hemoglobin Concent 33.9 Mean Corpuscular Volume 85.5 Mean Platelet Volume 8.8 # Monocytes # 1.4 H Monocytes % 11.9 H Neutrophils # 8.4 H Neutrophils % 73.3 Nucleated Red Blood Cells # 0.0 Nucleated Red Blood Cells % 0.0 Platelet Count 245 Potassium Level 4.5 Red Blood Count 3.66 L Red Cell Distribution Width 19.7 H Sodium Level 122 L White Blood Count 11.4 H Bedside Glucose 64 L 81 151 Medications Medications Current Medications Lorazepam (Ativan) 0.5 mg Q8H PRN PO ANXIETY; Start 11/20/16 at 12:00 Ondansetron HCl (Zofran Inj) 4 mg Q6H PRN IV NAUSEA AND/OR VOMITING Last administered on 11/23/16 05:32; Admin Dose 4 MG; Start 11/20/16 at 12:00 Aspirin (Aspirin) 81 mg DAILY PO Last administered on 11/25/16 09:43; Admin Dose 81 MG; Start 11/21/16 at 09:00 Nitroglycerin (Nitroglycerin (Sl Tab) 0.4 Mg) 1 tab Q5M PRN SL CHEST PAIN; Start 11/20/16 at 12:00 Acetaminophen (Tylenol Tab) 650 mg Q6H PRN PO PAIN LEVEL 1-3 OR FEVER; Start at 12:00 Morphine Sulfate (morphine) 2 mg Q4H PRN IV PAIN LEVEL 7-10 Last administered on 11/25/16 08:41; Admin Dose 2 MG; Start 11/20/16 at 12:00 Zolpidem Tartrate (Ambien) 5 mg QHS PRN PO INSOMNIA; Start 11/20/16 at 12:00 Pantoprazole (Protonix Tab) 40 mg DAILY@06 PO Last administered on 11/25/16 06: 43; Admin Dose 40 MG; Start 11/21/16 at 06:00 Miscellaneous Information 1 ea NOTE XX ; Start 11/20/16 at 12:30 Glucose (Glutose) 15 gm Q15M PRN PO DECREASED GLUCOSE; Start 11/20/16 at 12:30 Glucose (Glutose) 22.5 gm Q15M PRN PO DECREASED GLUCOSE; Start 11/20/16 at 12: 30 Dextrose (D50w Syringe) 25 ml Q15M PRN IV DECREASED GLUCOSE; Start 11/20/16 at 12:30 Dextrose (D50w Syringe) 50 ml Q15M PRN IV DECREASED GLUCOSE; Start 11/20/16 at 12:30 Glucagon (Glucagen) 1 mg Q15M PRN IM DECREASED GLUCOSE; Start 11/20/16 at 12:30 Glucose (Glutose) 15 gm Q15M PRN BUCCAL DECREASED GLUCOSE; Start 11/20/16 at 12 :30 Levothyroxine Sodium 125 mcg 125 mcg DAILY@06 PO Last administered on 11/25/16 06:43; Admin Dose 125 MCG; Start 11/22/16 at 06:00 Dopamine HCl/ Dextrose 250 ml @ 5.318 mls/ hr TITRATE IV Last administered on 11/23/16 07:11; Admin Dose 13.294 MLS/HR; Start 11/23/16 at 06:30 Norepinephrine/ Dextrose (Levophed/D5W) 500 ml @ 1.87 mls/hr TITRATE IV Last administered on 11/25/16 00:42; Admin Dose 31.87 MLS/HR; Start 11/23/16 at 14:00 Guaifenesin (Robitussin Liquid Cup) 100 mg Q6H PRN PO COUGH Last administered on 11/24/16 13:32; Admin Dose 100 MG; Start 11/23/16 at 16:30 Insulin Glargine (Lantus) 18 unit HS SC Last administered on 2/3/17at 21:11; Admin Dose 18 UNIT; Start 11/23/16 at 21:00 IV Flush (NS 10 ml) 10 ml PRN PRN IV IV PROTOCOL; Start 11/24/16 at 15:30 CHINA SARAH Nov 25, 2016 11:31
--- NOTE | 2016-11-25 12:00 | CONS ---
Date/Time of Note Date/Time of Note DATE: 11/25/16 TIME: 12:00 Assessment/Plan Assessment/Plan Additional Assessment/Plan IMPRESSION: 1. Congestive heart failure, status post automatic implantable cardioverter- defibrillator.feels better,no s.o.b,EF of 20% 2. End-stage renal disease on dialysis. 3. Coronary artery disease status post coronary artery bypass graft. 4. Diabetes mellitus. 5. Hypothyroidism. 6. Ascites. 7. Anemia. 8. Mild elevation of alkaline phosphatase. 9. Cirrhosis of liver with portal hypertension. 10. pt.became hypotensive and transferred to ICU for pressor support 11.s/p large volume paracentesis on 11/22/15 12.anemia r/o gi bleeding PLAN: 1. At this point, is to continue with dialysis and take out more fluid during dialysis. 2. Paracentesis on a need basis under the cover of albumin. 3. Continue all his medication. 4. The patient is not a candidate for TIPS given his renal failure and cardiomyopathy. 5. He has refractory ascites, 6. no paracentesis until BP stabilized Consultation Date/Type/Reason Admit Date/Time Nov 20, 2016 at 09:34 Initial Consult Date 11/21/16 Type of Consultation: Renal Referring Provider: DEMETRA BRUNO MD 24 HR Interval Summary Constitutional: improved Exam/Review of Systems Vital Signs Vitals Vital Signs Date Time Temp Pulse Resp B/P Pulse Ox O2 Delivery O2 Flow Rate FiO2 11/25/16 11:45 99 11/25/16 11:37 16 11/25/16 11:00 108/35 100 Room Air 11/25/16 08:00 97.5 11/24/16 08:00 2.0 Intake and Output 11/24/16 11/24/16 11/25/16 15:00 23:00 07:00 Intake Total 654.96 ml 703.08 ml 321.85 ml Output Total 0 ml 0 ml 0 ml Balance 654.96 ml 703.08 ml 321.85 ml Exam Constitutional: alert, oriented, well developed Psych: nl mood/affect, no complaints Head: atraumatic, normocephalic Eyes: EOMI, PERRL, nl conjunctiva, nl lids, nl sclera ENMT: nl external ears & nose, nl lips & teeth, nl nasal mucosa & septum Neck: non-tender, supple Respiratory: clear to auscultation, normal air movement Cardiovascular: nl pulses, regular rate and rhythm Gastrointestinal: nl liver, spleen, non-tender, soft Musculoskeletal: nl extremities to inspection, nl gait and stance Extremities: normal pulses 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, nl mental status, nl speech, nl strength Skin: nl turgor, No rash or lesions Lymph: nl lymph nodes Results Result Diagram: 11/25/16 0400 11/25/16 0400 Results 24 hrs Laboratory Tests Test 11/24/16 12:38 11/24/16 17:25 11/24/16 21:06 11/24/16 21:45 Bedside Glucose 210 188 104 Anion Gap 19 H Blood Urea Nitrogen 60 H Calcium Level 7.2 L Carbon Dioxide Level 24 Chloride Level 87 L Creatinine 5.88 H Glucose Level 141 Magnesium Level 1.8 Potassium Level 4.6 Sodium Level 125 L Test 11/25/16 04:00 11/25/16 07:47 11/25/16 07:57 11/25/16 11:22 Anion Gap 19 H Basophils # 0.1 Basophils % 0.7 Blood Urea Nitrogen 61 H Calcium Level 7.0 L Carbon Dioxide Level 23 Chloride Level 85 L Creatinine 5.97 H Eosinophils # 0.3 Eosinophils % 2.9 Glucose Level 213 Hematocrit 31.3 L Hemoglobin 10.6 L Hemoglobin A1c 6.7 H Lymphocytes # 1.2 Lymphocytes % 10.4 L Mean Corpuscular Hemoglobin 29.0 Mean Corpuscular Hemoglobin Concent 33.9 Mean Corpuscular Volume 85.5 Mean Platelet Volume 8.8 # Monocytes # 1.4 H Monocytes % 11.9 H Neutrophils # 8.4 H Neutrophils % 73.3 Nucleated Red Blood Cells # 0.0 Nucleated Red Blood Cells % 0.0 Platelet Count 245 Potassium Level 4.5 Red Blood Count 3.66 L Red Cell Distribution Width 19.7 H Sodium Level 122 L White Blood Count 11.4 H Bedside Glucose 64 L 81 151 Medications Medications Current Medications Lorazepam (Ativan) 0.5 mg Q8H PRN PO ANXIETY; Start 11/20/16 at 12:00 Ondansetron HCl (Zofran Inj) 4 mg Q6H PRN IV NAUSEA AND/OR VOMITING Last administered on 11/23/16t 05:32; Admin Dose 4 MG; Start 11/20/16 at 12:00 Aspirin (Aspirin) 81 mg DAILY PO Last administered on 11/25/16 09:43; Admin Dose 81 MG; Start 11/21/16 at 09:00 Nitroglycerin (Nitroglycerin (Sl Tab) 0.4 Mg) 1 tab Q5M PRN SL CHEST PAIN; Start 11/20/16 at 12:00 Acetaminophen (Tylenol Tab) 650 mg Q6H PRN PO PAIN LEVEL 1-3 OR FEVER; Start at 12:00 Morphine Sulfate (morphine) 2 mg Q4H PRN IV PAIN LEVEL 7-10 Last administered on 11/25/16 08:41; Admin Dose 2 MG; Start 11/20/16 at 12:00 Zolpidem Tartrate (Ambien) 5 mg QHS PRN PO INSOMNIA; Start 11/20/16 at 12:00 Pantoprazole (Protonix Tab) 40 mg DAILY@06 PO Last administered on 11/25/16 06: 43; Admin Dose 40 MG; Start 11/21/16 at 06:00 Miscellaneous Information 1 ea NOTE XX ; Start 11/20/16 at 12:30 Glucose (Glutose) 15 gm Q15M PRN PO DECREASED GLUCOSE; Start 11/20/16 at 12:30 Glucose (Glutose) 22.5 gm Q15M PRN PO DECREASED GLUCOSE; Start 11/20/16 at 12: 30 Dextrose (D50w Syringe) 25 ml Q15M PRN IV DECREASED GLUCOSE; Start 11/20/16 at 12:30 Dextrose (D50w Syringe) 50 ml Q15M PRN IV DECREASED GLUCOSE; Start 11/20/16 at 12:30 Glucagon (Glucagen) 1 mg Q15M PRN IM DECREASED GLUCOSE; Start 11/20/16 at 12:30 Glucose (Glutose) 15 gm Q15M PRN BUCCAL DECREASED GLUCOSE; Start 11/20/16 at 12 :30 Levothyroxine Sodium 125 mcg 125 mcg DAILY@06 PO Last administered on 11/25/16 06:43; Admin Dose 125 MCG; Start 11/22/16 at 06:00 Dopamine HCl/ Dextrose 250 ml @ 5.318 mls/ hr TITRATE IV Last administered on 11/23/16 07:11; Admin Dose 13.294 MLS/HR; Start 2/2/17 at 06:30 Norepinephrine/ Dextrose (Levophed/D5W) 500 ml @ 1.87 mls/hr TITRATE IV Last administered on 11/25/16 00:42; Admin Dose 31.87 MLS/HR; Start 11/23/16 at 14:00 Guaifenesin (Robitussin Liquid Cup) 100 mg Q6H PRN PO COUGH Last administered on 11/24/16 13:32; Admin Dose 100 MG; Start 11/23/16 at 16:30 Insulin Glargine (Lantus) 18 unit HS SC Last administered on 11/24/16 21:11; Admin Dose 18 UNIT; Start 11/23/16 at 21:00 IV Flush (NS 10 ml) 10 ml PRN PRN IV IV PROTOCOL; Start 11/24/16 at 15:30 LOR MASON MD Nov 25, 2016 12:00
--- NOTE | 2016-11-25 14:05 | CONS ---
Date/Time of Note Date/Time of Note DATE: 11/25/16 TIME: 14:04 Assessment/Plan Assessment/Plan Chief Complaint/Hosp Course Severe hypotension requiring IV pressor AV fistula stenosis status post venoplasty Acute decompensated systolic and diastolic heart failure Cardiomyopathy, likely ischemic and nonischemic in origin with an ejection fraction less than 20%. (Denied cardiac transplant at [facility]) Biventricular pacemaker and ICD Mitral and tricuspid valve regurgitation. Severe pulmonary hypertension. End-stage renal disease on hemodialysis Ascites status post paracentesis Problems: Additional Assessment/Plan maintain pressor therapy at current dose HD Consultation Date/Type/Reason Admit Date/Time Nov 20, 2016 at 09:34 Initial Consult Date 11/21/16 Type of Consultation: cv Referring Provider: DEMETRA BRUNO MD 24 HR Interval Summary Free Text/Dictation tolerated HD well, without drop of BP, maintains systolic 80s while of pressor Detailed Summary Respiratory: no complaints Cardiovascular: no complaints Gastrointestinal: no complaints Musculoskeletal: no complaints Skin: no complaints Neurologic: no complaints Exam/Review of Systems Vital Signs Vitals Vital Signs Date Time Temp Pulse Resp B/P Pulse Ox O2 Delivery O2 Flow Rate FiO2 11/25/16 13:45 102 11/25/16 11:37 16 11/25/16 11:00 108/35 100 Room Air 11/25/16 08:00 97.5 11/24/16 08:00 2.0 Intake and Output 11/24/16 11/24/16 11/25/16 15:00 23:00 07:00 Intake Total 654.96 ml 703.08 ml 321.85 ml Output Total 0 ml 0 ml 0 ml Balance 654.96 ml 703.08 ml 321.85 ml Exam Constitutional: frail Head: atraumatic, normocephalic Neck: jvd Respiratory: clear to auscultation Cardiovascular: regular rate and rhythm Gastrointestinal: soft Musculoskeletal: nl extremities to inspection Results Result Diagram: 11/25/16 0400 11/25/16 0400 Results 24 hrs Laboratory Tests Test 11/24/16 17:25 11/24/16 21:06 11/24/16 21:45 11/25/16 04:00 Bedside Glucose 188 104 Anion Gap 19 H 19 H Blood Urea Nitrogen 60 H 61 H Calcium Level 7.2 L 7.0 L Carbon Dioxide Level 24 23 Chloride Level 87 L 85 L Creatinine 5.88 H 5.97 H Glucose Level 141 213 Magnesium Level 1.8 Potassium Level 4.6 4.5 Sodium Level 125 L 122 L Basophils # 0.1 Basophils % 0.7 Eosinophils # 0.3 Eosinophils % 2.9 Hematocrit 31.3 L Hemoglobin 10.6 L Hemoglobin A1c 6.7 H Lymphocytes # 1.2 Lymphocytes % 10.4 L Mean Corpuscular Hemoglobin 29.0 Mean Corpuscular Hemoglobin Concent 33.9 Mean Corpuscular Volume 85.5 Mean Platelet Volume 8.8 # Monocytes # 1.4 H Monocytes % 11.9 H Neutrophils # 8.4 H Neutrophils % 73.3 Nucleated Red Blood Cells # 0.0 Nucleated Red Blood Cells % 0.0 Platelet Count 245 Red Blood Count 3.66 L Red Cell Distribution Width 19.7 H White Blood Count 11.4 H Test 11/25/16 07:47 11/25/16 07:57 11/25/16 11:22 Bedside Glucose 64 L 81 151 Medications Medications Current Medications Lorazepam (Ativan) 0.5 mg Q8H PRN PO ANXIETY; Start 11/20/16 at 12:00 Ondansetron HCl (Zofran Inj) 4 mg Q6H PRN IV NAUSEA AND/OR VOMITING Last administered on 11/23/16 05:32; Admin Dose 4 MG; Start 11/20/16 at 12:00 Aspirin (Aspirin) 81 mg DAILY PO Last administered on 11/25/16 09:43; Admin Dose 81 MG; Start 11/21/16 at 09:00 Nitroglycerin (Nitroglycerin (Sl Tab) 0.4 Mg) 1 tab Q5M PRN SL CHEST PAIN; Start 11/20/16 at 12:00 Acetaminophen (Tylenol Tab) 650 mg Q6H PRN PO PAIN LEVEL 1-3 OR FEVER; Start at 12:00 Morphine Sulfate (morphine) 2 mg Q4H PRN IV PAIN LEVEL 7-10 Last administered on 11/25/16 08:41; Admin Dose 2 MG; Start 11/20/16 at 12:00 Zolpidem Tartrate (Ambien) 5 mg QHS PRN PO INSOMNIA; Start 11/20/16 at 12:00 Pantoprazole (Protonix Tab) 40 mg DAILY@06 PO Last administered on 11/25/16 06: 43; Admin Dose 40 MG; Start 11/21/16 at 06:00 Miscellaneous Information 1 ea NOTE XX ; Start 11/20/16 at 12:30 Glucose (Glutose) 15 gm Q15M PRN PO DECREASED GLUCOSE; Start 11/20/16 at 12:30 Glucose (Glutose) 22.5 gm Q15M PRN PO DECREASED GLUCOSE; Start 11/20/16 at 12: 30 Dextrose (D50w Syringe) 25 ml Q15M PRN IV DECREASED GLUCOSE; Start 11/20/16 at 12:30 Dextrose (D50w Syringe) 50 ml Q15M PRN IV DECREASED GLUCOSE; Start 11/20/16 at 12:30 Glucagon (Glucagen) 1 mg Q15M PRN IM DECREASED GLUCOSE; Start 11/20/16 at 12:30 Glucose (Glutose) 15 gm Q15M PRN BUCCAL DECREASED GLUCOSE; Start 11/20/16 at 12 :30 Levothyroxine Sodium 125 mcg 125 mcg DAILY@06 PO Last administered on 11/25/16 06:43; Admin Dose 125 MCG; Start 11/22/16 at 06:00 Dopamine HCl/ Dextrose 250 ml @ 5.318 mls/ hr TITRATE IV Last administered on 11/23/16 07:11; Admin Dose 13.294 MLS/HR; Start 11/23/16 at 06:30 Norepinephrine/ Dextrose (Levophed/D5W) 500 ml @ 1.87 mls/hr TITRATE IV Last administered on 11/25/16 00:42; Admin Dose 31.87 MLS/HR; Start 11/23/16 at 14:00 Guaifenesin (Robitussin Liquid Cup) 100 mg Q6H PRN PO COUGH Last administered on 11/24/16 13:32; Admin Dose 100 MG; Start 11/23/16 at 16:30 Insulin Glargine (Lantus) 18 unit HS SC Last administered on 11/24/16 21:11; Admin Dose 18 UNIT; Start 11/23/16 at 21:00 IV Flush (NS 10 ml) 10 ml PRN PRN IV IV PROTOCOL; Start 11/24/16 at 15:30 CAPRI SALAZAR MD Nov 25, 2016 14:05
[2016-11-25] MEDS: LORAZEPAM 0.5 MG TAB PO PRN (17:44)
[2016-11-25] MEDS: INSULIN GLARGINE [LANtus] 3 ML PEN SC SCH (20:45)
[2016-11-25] MEDS: GUAIFENESIN 20 MG/ML 5ML CUP PO PRN (21:58)
[2016-11-26] VITALS (58 sets, daily range): BP systolic 70–161; BP diastolic 12–133; PULSE 86–127; RESP 11–28
[2016-11-26] MEDS: morphine 2 MG INJ IV PRN ×4 (02:51→21:16)
[2016-11-26] MEDS: LEVOTHYROXINE 125 MCG TAB PO SCH (05:05)
[2016-11-26] MEDS: PANTOPRAZOLE (EC) 40 MG TAB PO SCH (05:05)
[2016-11-26 06:16] LABS: BASOPHILS % 0.3 % (0.0-2.0); EOSINOPHILS # 0.2 10^3/ul (0.0-0.5); EOSINOPHILS % 1.6 % (0.0-7.0); HEMATOCRIT 33.4 % (42.0-52.0); HEMOGLOBIN 11.4 g/dl (14.0-18.0); LYMPHOCYTES % 7.5 % (15.0-51.0); MEAN CORPUSCULAR HEMOGLOBIN 29.4 pg (29.0-33.0); MEAN CORPUSCULAR HGB CONC 34.2 g/dl (32.0-37.0); MEAN PLATELET VOLUME 6.5 fl (7.4-10.4); MONOCYTE # 1.2 10^3/ul (0.3-0.9); MONOCYTES % 8.5 % (0.0-11.0); NEUTROPHIL # 11.3 10^3/ul (1.6-7.5); NEUTROPHILS % 82.1 % (39.0-77.0); PLATELET COUNT 236 10^3/UL (140-440); RED BLOOD COUNT 3.88 10^6/ul (4.70-6.10); RED CELL DISTRIBUTION WIDTH 19.8 % (11.5-14.5); UNCORRECTED WBC 13.7 10^3/ul (4.8-10.8); WHITE BLOOD COUNT 13.7 10^3/ul (4.8-10.8)
[2016-11-26 06:18] LABS: POTASSIUM 4.6 mmol/L (3.5-5.1)
[2016-11-26 06:20] LABS: CREATININE 5.99 mg/dl (0.61-1.24)
[2016-11-26 06:21] LABS: CALCIUM 7.5 mg/dl (8.4-10.2)
[2016-11-26 06:36] LABS: CONDITION 1
[2016-11-26 06:37] LABS: LH ANALYZER COMMENTS 1
[2016-11-26] MEDS: INSULIN ASPART [NOVOLOG] 3 ML PEN SC SCH ×4 (07:35→20:22)
--- NOTE | 2016-11-26 09:21 | CONS ---
Date/Time of Note Date/Time of Note DATE: 11/26/16 TIME: 09:21 Assessment/Plan Assessment/Plan Additional Assessment/Plan 66 yo Male with 1) ESRD on HD 2) Hyperkalemia- Resolved 3) RT AVF Dysfunction S/p Fistulogram 4) Anemia, Chronic Dx 5) Anasarca 6) Liver disease, Ascites S/P Parcentesis 7) Hyponatremia 8) Hypotension, Likely Sepsis HD ordered for tomorrow Free H20 Restiction Pressors as needed. Cont supportive care. Consultation Date/Type/Reason Admit Date/Time Nov 20, 2016 at 09:34 Initial Consult Date 11/21/16 Type of Consultation: Nephrology Referring Provider: DEMETRA BRUNO MD 24 HR Interval Summary Free Text/Dictation Off pressors, S/p HD yesterday Subjective hx not possible: pt critical status Exam/Review of Systems Vital Signs Vitals Vital Signs Date Time Temp Pulse Resp B/P Pulse Ox O2 Delivery O2 Flow Rate FiO2 11/26/16 08:00 98.2 106 15 102/64 95 11/26/16 01:00 Nasal Cannula 2.0 Intake and Output 11/25/16 11/25/16 11/26/16 15:00 23:00 07:00 Intake Total 1311.87 ml 508.745 ml 396.24 ml Output Total 3000 ml 0 ml 0 ml Balance -1688.13 ml 508.745 ml 396.24 ml Exam Constitutional: No distress ENMT: mucosa pink and moist Respiratory: crackles/rales Cardiovascular: edema, regular rate and rhythm Gastrointestinal: ascites, soft, No rebound or guarding Extremities: edema 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: lethargic Skin: No diaphoresis Results Result Diagram: 11/26/16 0515 11/26/16 0515 Results 24 hrs Laboratory Tests Test 11/25/16 11:22 11/25/16 17:07 11/25/16 20:42 11/26/16 05:15 Bedside Glucose 151 292 H 151 Anion Gap 22 H Basophils # 0.0 Basophils % 0.3 Blood Morphology Comment Blood Urea Nitrogen 58 H Calcium Level 7.5 L Carbon Dioxide Level 23 Chloride Level 87 L Creatinine 5.99 H Eosinophils # 0.2 Eosinophils % 1.6 Glucose Level 100 # Hematocrit 33.4 L Hemoglobin 11.4 L Lymphocytes # 1.0 Lymphocytes % 7.5 L Magnesium Level 2.0 Mean Corpuscular Hemoglobin 29.4 Mean Corpuscular Hemoglobin Concent 34.2 Mean Corpuscular Volume 86.0 Mean Platelet Volume 6.5 #L Monocytes # 1.2 H Monocytes % 8.5 Neutrophils # 11.3 H Neutrophils % 82.1 H Nucleated Red Blood Cells # 0.0 Nucleated Red Blood Cells % 0.0 Platelet Count 236 Potassium Level 4.6 Red Blood Count 3.88 L Red Cell Distribution Width 19.8 H Sodium Level 127 L White Blood Count 13.7 #H Test 11/26/16 08:10 Bedside Glucose 72 Medications Medications Current Medications Lorazepam (Ativan) 0.5 mg Q8H PRN PO ANXIETY Last administered on 11/25/16 17: 44; Admin Dose 0.5 MG; Start 11/20/16 at 12:00 Ondansetron HCl (Zofran Inj) 4 mg Q6H PRN IV NAUSEA AND/OR VOMITING Last administered on 11/23/16 05:32; Admin Dose 4 MG; Start 11/20/16 at 12:00 Aspirin (Aspirin) 81 mg DAILY PO Last administered on 11/25/16 09:43; Admin Dose 81 MG; Start 11/21/16 at 09:00 Nitroglycerin (Nitroglycerin (Sl Tab) 0.4 Mg) 1 tab Q5M PRN SL CHEST PAIN; Start 11/20/16 at 12:00 Acetaminophen (Tylenol Tab) 650 mg Q6H PRN PO PAIN LEVEL 1-3 OR FEVER; Start at 12:00 Morphine Sulfate (morphine) 2 mg Q4H PRN IV PAIN LEVEL 7-10 Last administered on 11/26/16 02:51; Admin Dose 2 MG; Start 11/20/16 at 12:00 Zolpidem Tartrate (Ambien) 5 mg QHS PRN PO INSOMNIA; Start 11/20/16 at 12:00 Pantoprazole (Protonix Tab) 40 mg DAILY@06 PO Last administered on 11/26/16 05: 05; Admin Dose 40 MG; Start 11/21/16 at 06:00 Miscellaneous Information 1 ea NOTE XX ; Start 11/20/16 at 12:30 Glucose (Glutose) 15 gm Q15M PRN PO DECREASED GLUCOSE; Start 11/20/16 at 12:30 Glucose (Glutose) 22.5 gm Q15M PRN PO DECREASED GLUCOSE; Start 11/20/16 at 12: 30 Dextrose (D50w Syringe) 25 ml Q15M PRN IV DECREASED GLUCOSE; Start 11/20/16 at 12:30 Dextrose (D50w Syringe) 50 ml Q15M PRN IV DECREASED GLUCOSE; Start 11/20/16 at 12:30 Glucagon (Glucagen) 1 mg Q15M PRN IM DECREASED GLUCOSE; Start 11/20/16 at 12:30 Glucose (Glutose) 15 gm Q15M PRN BUCCAL DECREASED GLUCOSE; Start 11/20/16 at 12 :30 Levothyroxine Sodium 125 mcg 125 mcg DAILY@06 PO Last administered on 11/26/16 05:05; Admin Dose 125 MCG; Start 11/22/16 at 06:00 Dopamine HCl/ Dextrose 250 ml @ 5.318 mls/ hr TITRATE IV Last administered on 11/23/16 07:11; Admin Dose 13.294 MLS/HR; Start 11/23/16 at 06:30 Norepinephrine/ Dextrose (Levophed/D5W) 500 ml @ 1.87 mls/hr TITRATE IV Last administered on 11/25/16 21:34; Admin Dose 18.75 MLS/HR; Start 11/23/16 at 14:00 Guaifenesin (Robitussin Liquid Cup) 100 mg Q6H PRN PO COUGH Last administered on 11/25/16 21:58; Admin Dose 100 MG; Start 11/23/16 at 16:30 Insulin Glargine (Lantus) 18 unit HS SC Last administered on 11/25/16 20:45; Admin Dose 18 UNIT; Start 11/23/16 at 21:00 IV Flush (NS 10 ml) 10 ml PRN PRN IV IV PROTOCOL; Start 11/24/16 at 15:30 PARRISH DIEGO MD Nov 26, 2016 09:21
[2016-11-26] MEDS: ASPIRIN 81 MG TAB PO SCH (09:56)
--- NOTE | 2016-11-26 10:53 | PN ---
Date/Time of Note Date/Time of Note DATE: 11/26/16 TIME: 10:52 Assessment/Plan VTE Prophylaxis VTE Prophylaxis Intervention: other Lines/Catheters IV Catheter Type (from Rust): PICC Line Central line still needed: Yes Urinary Cath still in place: No Assessment/Plan Chief Complaint/Hosp Course 1) Severe hypotension requiring pressors, continue pressors for hemodynamic support, ICU care. 2) Congestive heart failure exacerbation with ejection fraction of 20% per last echo. Continue to remove fluids with hemodialysis. 3) Ascites, status post paracentesis. Patient was increased ascites today, paracentesis today. 4) End-stage renal disease, hemodialysis-dependent. Dr. Maddox is following from nephrology standpoint. Continue patient on hemodialysis. 5) Coronary artery disease status post coronary artery bypass graft. Continue patient on aspirin and Coreg. Dr. Cee is following from cardiology standpoint. 6) Hypothyroidism. TSH is 14, Synthroid increased to 125. 7) Diabetes mellitus type 2. Continue to monitor blood sugar with mild algorithm scale, NovoLog coverage. - Hemodialysis access, status post right AV fistulogram by Dr. Loco, vascular surgery on 11/21. - Liver cirrhosis and portal hypertension. Dr. Kirkpatrick is following in gastroenterology consultation. Problems: Subjective 24 Hr Interval Summary Free Text/Dictation Patient has no complaints Exam/Review of Systems Vital Signs Vitals Vital Signs Date Time Temp Pulse Resp B/P Pulse Ox O2 Delivery O2 Flow Rate FiO2 11/26/16 08:00 98.2 106 15 102/64 95 11/26/16 01:00 Nasal Cannula 2.0 Intake and Output 11/25/16 11/25/16 11/26/16 15:00 23:00 07:00 Intake Total 1311.87 ml 508.745 ml 396.24 ml Output Total 3000 ml 0 ml 0 ml Balance -1688.13 ml 508.745 ml 396.24 ml Exam Constitutional: well developed Head: atraumatic, normocephalic Neck: supple Respiratory: diminished breath sounds Cardiovascular: regular rate and rhythm Gastrointestinal: non-tender, soft Results Result Diagram: 11/26/16 0515 11/26/16 0515 Results 24 hrs Laboratory Tests Test 11/25/16 11:22 11/25/16 17:07 11/25/16 20:42 11/26/16 05:15 Bedside Glucose 151 292 H 151 Anion Gap 22 H Basophils # 0.0 Basophils % 0.3 Blood Morphology Comment Blood Urea Nitrogen 58 H Calcium Level 7.5 L Carbon Dioxide Level 23 Chloride Level 87 L Creatinine 5.99 H Eosinophils # 0.2 Eosinophils % 1.6 Glucose Level 100 # Hematocrit 33.4 L Hemoglobin 11.4 L Lymphocytes # 1.0 Lymphocytes % 7.5 L Magnesium Level 2.0 Mean Corpuscular Hemoglobin 29.4 Mean Corpuscular Hemoglobin Concent 34.2 Mean Corpuscular Volume 86.0 Mean Platelet Volume 6.5 #L Monocytes # 1.2 H Monocytes % 8.5 Neutrophils # 11.3 H Neutrophils % 82.1 H Nucleated Red Blood Cells # 0.0 Nucleated Red Blood Cells % 0.0 Platelet Count 236 Potassium Level 4.6 Red Blood Count 3.88 L Red Cell Distribution Width 19.8 H Sodium Level 127 L White Blood Count 13.7 #H Test 11/26/16 08:10 Bedside Glucose 72 Medications Medications Current Medications Lorazepam (Ativan) 0.5 mg Q8H PRN PO ANXIETY Last administered on 11/25/16 17: 44; Admin Dose 0.5 MG; Start 11/20/16 at 12:00 Ondansetron HCl (Zofran Inj) 4 mg Q6H PRN IV NAUSEA AND/OR VOMITING Last administered on 11/23/16 05:32; Admin Dose 4 MG; Start 11/20/16 at 12:00 Aspirin (Aspirin) 81 mg DAILY PO Last administered on 11/26/16 09:56; Admin Dose 81 MG; Start 11/21/16 at 09:00 Nitroglycerin (Nitroglycerin (Sl Tab) 0.4 Mg) 1 tab Q5M PRN SL CHEST PAIN; Start 11/20/16 at 12:00 Acetaminophen (Tylenol Tab) 650 mg Q6H PRN PO PAIN LEVEL 1-3 OR FEVER; Start at 12:00 Morphine Sulfate (morphine) 2 mg Q4H PRN IV PAIN LEVEL 7-10 Last administered on 11/26/16 10:02; Admin Dose 2 MG; Start 11/20/16 at 12:00 Zolpidem Tartrate (Ambien) 5 mg QHS PRN PO INSOMNIA; Start 11/20/16 at 12:00 Pantoprazole (Protonix Tab) 40 mg DAILY@06 PO Last administered on 11/26/16 05: 05; Admin Dose 40 MG; Start 11/21/16 at 06:00 Miscellaneous Information 1 ea NOTE XX ; Start 11/20/16 at 12:30 Glucose (Glutose) 15 gm Q15M PRN PO DECREASED GLUCOSE; Start 11/20/16 at 12:30 Glucose (Glutose) 22.5 gm Q15M PRN PO DECREASED GLUCOSE; Start 11/20/16 at 12: 30 Dextrose (D50w Syringe) 25 ml Q15M PRN IV DECREASED GLUCOSE; Start 11/20/16 at 12:30 Dextrose (D50w Syringe) 50 ml Q15M PRN IV DECREASED GLUCOSE; Start 11/20/16 at 12:30 Glucagon (Glucagen) 1 mg Q15M PRN IM DECREASED GLUCOSE; Start 11/20/16 at 12:30 Glucose (Glutose) 15 gm Q15M PRN BUCCAL DECREASED GLUCOSE; Start 11/20/16 at 12 :30 Levothyroxine Sodium 125 mcg 125 mcg DAILY@06 PO Last administered on 11/26/16 05:05; Admin Dose 125 MCG; Start 11/22/16 at 06:00 Dopamine HCl/ Dextrose 250 ml @ 5.318 mls/ hr TITRATE IV Last administered on 11/23/16 07:11; Admin Dose 13.294 MLS/HR; Start 11/23/16 at 06:30 Norepinephrine/ Dextrose (Levophed/D5W) 500 ml @ 1.87 mls/hr TITRATE IV Last administered on 11/25/16 21:34; Admin Dose 18.75 MLS/HR; Start 11/23/16 at 14:00 Guaifenesin (Robitussin Liquid Cup) 100 mg Q6H PRN PO COUGH Last administered on 11/25/16 21:58; Admin Dose 100 MG; Start 11/23/16 at 16:30 IV Flush (NS 10 ml) 10 ml PRN PRN IV IV PROTOCOL; Start 11/24/16 at 15:30 Insulin Glargine (Lantus) 15 unit HS SC ; Start 11/26/16 at 21:00; Status [place] [facility] Nov 26, 2016 10:52
[2016-11-26] MEDS: LORAZEPAM 0.5 MG TAB PO PRN ×2 (12:39→22:57)
--- NOTE | 2016-11-26 16:25 | CONS ---
Date/Time of Note Date/Time of Note DATE: 11/26/16 TIME: 16:24 Assessment/Plan Assessment/Plan Additional Assessment/Plan Severe hypotension requiring IV pressor AV fistula stenosis status post venoplasty Acute decompensated systolic and diastolic heart failure Cardiomyopathy, likely ischemic and nonischemic in origin with an ejection fraction less than 20%. (Denied cardiac transplant at [facility]) Biventricular pacemaker and ICD Mitral and tricuspid valve regurgitation. Severe pulmonary hypertension. End-stage renal disease on hemodialysis Ascites status post paracentesis -Continue to titrate IV pressor as blood pressure improves, hold any antihypertensive medication regimens. Fluid management via hemodialysis as per our nephrology colleagues. Consultation Date/Type/Reason Admit Date/Time Nov 20, 2016 at 09:34 Initial Consult Date 11/21/16 Type of Consultation: cv Referring Provider: DEMETRA BRUNO MD 24 HR Interval Summary Free Text/Dictation Denies dizziness, shortness of breath, chest pain or palpitations Exam/Review of Systems Vital Signs Vitals Vital Signs Date Time Temp Pulse Resp B/P Pulse Ox O2 Delivery O2 Flow Rate FiO2 11/26/16 13:00 127 21 107/50 98 11/26/16 12:15 98.5 11/26/16 01:00 Nasal Cannula 2.0 Intake and Output 11/25/16 11/25/16 11/26/16 15:00 23:00 07:00 Intake Total 1311.87 ml 508.745 ml 396.24 ml Output Total 3000 ml 0 ml 0 ml Balance -1688.13 ml 508.745 ml 396.24 ml Exam No apparent distress Constitutional: alert, frail, oriented Head: normocephalic Neck: supple Respiratory: other (course breath sounds bilaterally, no wheezing) Cardiovascular: other (S1 and S2 heard), regular rate and rhythm Gastrointestinal: bowel sounds, distended, non-tender, soft Extremities: edema Results Result Diagram: 11/26/16 0515 11/26/16 0515 Results 24 hrs Laboratory Tests Test 11/25/16 17:07 11/25/16 20:42 11/26/16 05:15 11/26/16 08:10 Bedside Glucose 292 H 151 72 Anion Gap 22 H Basophils # 0.0 Basophils % 0.3 Blood Morphology Comment Blood Urea Nitrogen 58 H Calcium Level 7.5 L Carbon Dioxide Level 23 Chloride Level 87 L Creatinine 5.99 H Eosinophils # 0.2 Eosinophils % 1.6 Glucose Level 100 # Hematocrit 33.4 L Hemoglobin 11.4 L Lymphocytes # 1.0 Lymphocytes % 7.5 L Magnesium Level 2.0 Mean Corpuscular Hemoglobin 29.4 Mean Corpuscular Hemoglobin Concent 34.2 Mean Corpuscular Volume 86.0 Mean Platelet Volume 6.5 #L Monocytes # 1.2 H Monocytes % 8.5 Neutrophils # 11.3 H Neutrophils % 82.1 H Nucleated Red Blood Cells # 0.0 Nucleated Red Blood Cells % 0.0 Platelet Count 236 Potassium Level 4.6 Red Blood Count 3.88 L Red Cell Distribution Width 19.8 H Sodium Level 127 L White Blood Count 13.7 #H Test 11/26/16 12:05 Bedside Glucose 137 Medications Medications Current Medications Lorazepam (Ativan) 0.5 mg Q8H PRN PO ANXIETY Last administered on 11/26/16 12: 39; Admin Dose 0.5 MG; Start 11/20/16 at 12:00 Ondansetron HCl (Zofran Inj) 4 mg Q6H PRN IV NAUSEA AND/OR VOMITING Last administered on 11/23/16 05:32; Admin Dose 4 MG; Start 11/20/16 at 12:00 Aspirin (Aspirin) 81 mg DAILY PO Last administered on 11/26/16 09:56; Admin Dose 81 MG; Start 11/21/16 at 09:00 Nitroglycerin (Nitroglycerin (Sl Tab) 0.4 Mg) 1 tab Q5M PRN SL CHEST PAIN; Start 11/20/16 at 12:00 Acetaminophen (Tylenol Tab) 650 mg Q6H PRN PO PAIN LEVEL 1-3 OR FEVER; Start at 12:00 Morphine Sulfate (morphine) 2 mg Q4H PRN IV PAIN LEVEL 7-10 Last administered on 11/26/16 14:23; Admin Dose 2 MG; Start 11/20/16 at 12:00 Zolpidem Tartrate (Ambien) 5 mg QHS PRN PO INSOMNIA; Start 11/20/16 at 12:00 Pantoprazole (Protonix Tab) 40 mg DAILY@06 PO Last administered on 11/26/16 05: 05; Admin Dose 40 MG; Start 11/21/16 at 06:00 Miscellaneous Information 1 ea NOTE XX ; Start 11/20/16 at 12:30 Glucose (Glutose) 15 gm Q15M PRN PO DECREASED GLUCOSE; Start 11/20/16 at 12:30 Glucose (Glutose) 22.5 gm Q15M PRN PO DECREASED GLUCOSE; Start 11/20/16 at 12: 30 Dextrose (D50w Syringe) 25 ml Q15M PRN IV DECREASED GLUCOSE; Start 11/20/16 at 12:30 Dextrose (D50w Syringe) 50 ml Q15M PRN IV DECREASED GLUCOSE; Start 11/20/16 at 12:30 Glucagon (Glucagen) 1 mg Q15M PRN IM DECREASED GLUCOSE; Start 11/20/16 at 12:30 Glucose (Glutose) 15 gm Q15M PRN BUCCAL DECREASED GLUCOSE; Start 11/20/16 at 12 :30 Levothyroxine Sodium 125 mcg 125 mcg DAILY@06 PO Last administered on 11/26/16 05:05; Admin Dose 125 MCG; Start 11/22/16 at 06:00 Dopamine HCl/ Dextrose 250 ml @ 5.318 mls/ hr TITRATE IV Last administered on 11/23/16 07:11; Admin Dose 13.294 MLS/HR; Start 11/23/16 at 06:30 Norepinephrine/ Dextrose (Levophed/D5W) 500 ml @ 1.87 mls/hr TITRATE IV Last administered on 11/25/16 21:34; Admin Dose 18.75 MLS/HR; Start 11/23/16 at 14:00 Guaifenesin (Robitussin Liquid Cup) 100 mg Q6H PRN PO COUGH Last administered on 11/25/16 21:58; Admin Dose 100 MG; Start 11/23/16 at 16:30 IV Flush (NS 10 ml) 10 ml PRN PRN IV IV PROTOCOL; Start 11/24/16 at 15:30 Insulin Glargine (Lantus) 15 unit HS SC ; Start 11/26/16 at 21:00 Harpreet Cee DO Nov 26, 2016 16:25
--- NOTE | 2016-11-26 17:11 | CONS ---
Date/Time of Note Date/Time of Note DATE: 11/26/16 TIME: 17:10 Assessment/Plan Assessment/Plan Additional Assessment/Plan IMPRESSION: 1. Congestive heart failure, status post automatic implantable cardioverter- defibrillator.feels better,no s.o.b,EF of 20% 2. End-stage renal disease on dialysis. 3. Coronary artery disease status post coronary artery bypass graft. 4. Diabetes mellitus. 5. Hypothyroidism. 6. Ascites. 7. Anemia. 8. Mild elevation of alkaline phosphatase. 9. Cirrhosis of liver with portal hypertension. 10. pt.became hypotensive and transferred to ICU for pressor support 11.s/p large volume paracentesis on 11/22/15 12.anemia r/o gi bleeding 13. hypotension on Levophed PLAN: 1. At this point, is to continue with dialysis and take out more fluid during dialysis. 2. Paracentesis on a need basis under the cover of albumin. 3. Continue all his medication. 4. The patient is not a candidate for TIPS given his renal failure and cardiomyopathy. 5. He has refractory ascites, 6. no paracentesis until BP stabilized Consultation Date/Type/Reason Admit Date/Time Nov 20, 2016 at 09:34 Initial Consult Date 11/21/16 Type of Consultation: cv Referring Provider: DEMETRA BRUNO MD 24 HR Interval Summary Constitutional: no complaints Exam/Review of Systems Vital Signs Vitals Vital Signs Date Time Temp Pulse Resp B/P Pulse Ox O2 Delivery O2 Flow Rate FiO2 11/26/16 13:00 127 21 107/50 98 11/26/16 12:15 98.5 11/26/16 01:00 Nasal Cannula 2.0 Intake and Output 11/25/16 11/25/16 11/26/16 15:00 23:00 07:00 Intake Total 1311.87 ml 508.745 ml 396.24 ml Output Total 3000 ml 0 ml 0 ml Balance -1688.13 ml 508.745 ml 396.24 ml Exam Constitutional: alert, oriented, well developed Psych: nl mood/affect, no complaints Head: atraumatic, normocephalic Eyes: EOMI, PERRL, nl conjunctiva, nl lids, nl sclera ENMT: nl external ears & nose, nl lips & teeth, nl nasal mucosa & septum Neck: non-tender, supple Respiratory: clear to auscultation, normal air movement Cardiovascular: nl pulses, regular rate and rhythm Gastrointestinal: nl liver, spleen, non-tender, soft Musculoskeletal: nl extremities to inspection, nl gait and stance Extremities: normal pulses 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: SU[employer] 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, nl mental status, nl speech, nl strength Skin: nl turgor, No rash or lesions Lymph: nl lymph nodes Results Result Diagram: 11/26/1651411/26/1615 Results 24 hrs Laboratory Tests Test 11/25/16 20:42 11/26/16 05:15 11/26/16 08:10 11/26/16 12:05 Bedside Glucose 151 72 137 Anion Gap 22 H Basophils # 0.0 Basophils % 0.3 Blood Morphology Comment Blood Urea Nitrogen 58 H Calcium Level 7.5 L Carbon Dioxide Level 23 Chloride Level 87 L Creatinine 5.99 H Eosinophils # 0.2 Eosinophils % 1.6 Glucose Level 100 # Hematocrit 33.4 L Hemoglobin 11.4 L Lymphocytes # 1.0 Lymphocytes % 7.5 L Magnesium Level 2.0 Mean Corpuscular Hemoglobin 29.4 Mean Corpuscular Hemoglobin Concent 34.2 Mean Corpuscular Volume 86.0 Mean Platelet Volume 6.5 #L Monocytes # 1.2 H Monocytes % 8.5 Neutrophils # 11.3 H Neutrophils % 82.1 H Nucleated Red Blood Cells # 0.0 Nucleated Red Blood Cells % 0.0 Platelet Count 236 Potassium Level 4.6 Red Blood Count 3.88 L Red Cell Distribution Width 19.8 H Sodium Level 127 L White Blood Count 13.7 #H Test 11/26/16 16:54 Bedside Glucose 102 Medications Medications Current Medications Lorazepam (Ativan) 0.5 mg Q8H PRN PO ANXIETY Last administered on 11/26/16 12: 39; Admin Dose 0.5 MG; Start 11/20/16 at 12:00 Ondansetron HCl (Zofran Inj) 4 mg Q6H PRN IV NAUSEA AND/OR VOMITING Last administered on 11/23/16 05:32; Admin Dose 4 MG; Start 11/20/16 at 12:00 Aspirin (Aspirin) 81 mg DAILY PO Last administered on 11/26/16 09:56; Admin Dose 81 MG; Start 11/21/16 at 09:00 Nitroglycerin (Nitroglycerin (Sl Tab) 0.4 Mg) 1 tab Q5M PRN SL CHEST PAIN; Start 11/20/16 at 12:00 Acetaminophen (Tylenol Tab) 650 mg Q6H PRN PO PAIN LEVEL 1-3 OR FEVER; Start at 12:00 Morphine Sulfate (morphine) 2 mg Q4H PRN IV PAIN LEVEL 7-10 Last administered on 11/26/16 14:23; Admin Dose 2 MG; Start 11/20/16 at 12:00 Zolpidem Tartrate (Ambien) 5 mg QHS PRN PO INSOMNIA; Start 11/20/16 at 12:00 Pantoprazole (Protonix Tab) 40 mg DAILY@06 PO Last administered on 11/26/16 05: 05; Admin Dose 40 MG; Start 11/21/16 at 06:00 Miscellaneous Information 1 ea NOTE XX ; Start 11/20/16 at 12:30 Glucose (Glutose) 15 gm Q15M PRN PO DECREASED GLUCOSE; Start 11/20/16 at 12:30 Glucose (Glutose) 22.5 gm Q15M PRN PO DECREASED GLUCOSE; Start 11/20/16 at 12: 30 Dextrose (D50w Syringe) 25 ml Q15M PRN IV DECREASED GLUCOSE; Start 11/20/16 at 12:30 Dextrose (D50w Syringe) 50 ml Q15M PRN IV DECREASED GLUCOSE; Start 11/20/16 at 12:30 Glucagon (Glucagen) 1 mg Q15M PRN IM DECREASED GLUCOSE; Start 11/20/16 at 12:30 Glucose (Glutose) 15 gm Q15M PRN BUCCAL DECREASED GLUCOSE; Start 11/20/16 at 12 :30 Levothyroxine Sodium 125 mcg 125 mcg DAILY@06 PO Last administered on 11/26/16 05:05; Admin Dose 125 MCG; Start 11/22/16 at 06:00 Dopamine HCl/ Dextrose 250 ml @ 5.318 mls/ hr TITRATE IV Last administered on 11/23/16 07:11; Admin Dose 13.294 MLS/HR; Start 11/23/16 at 06:30 Norepinephrine/ Dextrose (Levophed/D5W) 500 ml @ 1.87 mls/hr TITRATE IV Last administered on 11/25/16 21:34; Admin Dose 18.75 MLS/HR; Start 11/23/16 at 14:00 Guaifenesin (Robitussin Liquid Cup) 100 mg Q6H PRN PO COUGH Last administered on 11/25/16t 21:58; Admin Dose 100 MG; Start 11/23/16 at 16:30 IV Flush (NS 10 ml) 10 ml PRN PRN IV IV PROTOCOL; Start 11/24/16 at 15:30 Insulin Glargine (Lantus) 15 unit HS SC ; Start 11/26/16 at 21:00 LOR MASON MD Nov 26, 2016 17:11
[2016-11-26] MEDS: INSULIN GLARGINE [LANtus] 3 ML PEN SC SCH (20:21)
[2016-11-27] VITALS (57 sets, daily range): BP systolic 59–107; BP diastolic 44–79; PULSE 78–120; RESP 9–22
[2016-11-27] MEDS: morphine 2 MG INJ IV PRN ×5 (01:47→22:41)
[2016-11-27 05:36] LABS: BASOPHILS % 0.1 % (0.0-2.0); EOSINOPHILS # 0.3 10^3/ul (0.0-0.5); EOSINOPHILS % 3.5 % (0.0-7.0); HEMATOCRIT 28.6 % (42.0-52.0); HEMOGLOBIN 9.7 g/dl (14.0-18.0); LYMPHOCYTES % 11.6 % (15.0-51.0); MEAN CORPUSCULAR HEMOGLOBIN 29.3 pg (29.0-33.0); MEAN CORPUSCULAR HGB CONC 34.1 g/dl (32.0-37.0); MEAN CORPUSCULAR VOLUME 86.2 fl (82.0-101.0); MEAN PLATELET VOLUME 6.6 fl (7.4-10.4); MONOCYTE # 0.6 10^3/ul (0.3-0.9); MONOCYTES % 6.8 % (0.0-11.0); PLATELET COUNT 152 10^3/UL (140-440); RED BLOOD COUNT 3.31 10^6/ul (4.70-6.10); UNCORRECTED WBC 8.9 10^3/ul (4.8-10.8); WHITE BLOOD COUNT 8.9 10^3/ul (4.8-10.8)
[2016-11-27 05:46] LABS: CONDITION 1; LH ANALYZER COMMENTS 1
[2016-11-27 05:47] LABS: POTASSIUM 4.8 mmol/L (3.5-5.1)
[2016-11-27 05:50] LABS: CREATININE 7.11 mg/dl (0.61-1.24)
[2016-11-27 05:51] LABS: CALCIUM 7.3 mg/dl (8.4-10.2)
[2016-11-27] MEDS: PANTOPRAZOLE (EC) 40 MG TAB PO SCH (06:18)
[2016-11-27] MEDS: LEVOTHYROXINE 125 MCG TAB PO SCH (07:01)
[2016-11-27] MEDS: INSULIN ASPART [NOVOLOG] 3 ML PEN SC SCH ×4 (07:35→21:02)
[2016-11-27] MEDS: ASPIRIN 81 MG TAB PO SCH (09:31)
[2016-11-27] MEDS ORDERED: ALBUMIN HUMAN 25% 100 ML IV ONE (10:30)
--- NOTE | 2016-11-27 12:37 | CONS ---
Date/Time of Note Date/Time of Note DATE: 11/27/16 TIME: 12:36 Assessment/Plan Assessment/Plan Additional Assessment/Plan Hypotension, improving AV fistula stenosis status post venoplasty Acute decompensated systolic and diastolic heart failure Cardiomyopathy, likely ischemic and nonischemic in origin with an ejection fraction less than 20%. (Denied cardiac transplant at [facility]) Biventricular pacemaker and ICD Mitral and tricuspid valve regurgitation. Severe pulmonary hypertension. End-stage renal disease on hemodialysis Ascites status post paracentesis -Patient currently off IV pressors, about to start hemodialysis. Continue to hold all antihypertensive medications. Consultation Date/Type/Reason Admit Date/Time Nov 20, 2016 at 09:34 Initial Consult Date 11/21/16 Type of Consultation: cv Referring Provider: DEMETRA BRUNO MD 24 HR Interval Summary Free Text/Dictation Denies dizziness, chest pain or shortness of breath. About to begin hemodialysis. Exam/Review of Systems Vital Signs Vitals Vital Signs Date Time Temp Pulse Resp B/P Pulse Ox O2 Delivery O2 Flow Rate FiO2 11/27/16 12:28 102 11/27/16 12:00 97.5 11 88/59 Room Air 11/27/16 10:00 100 11/26/16 01:00 2.0 Intake and Output 11/26/16 11/26/16 11/27/16 14:59 22:59 06:59 Intake Total 581.22 ml 429.37 ml Output Total 20 ml 0 ml Balance 561.22 ml 429.37 ml Exam No apparent distress Constitutional: alert, frail, oriented Head: normocephalic Neck: supple Respiratory: other (course breath sounds bilaterally, no wheezing) Cardiovascular: other (S1-S2 heard), regular rate and rhythm Gastrointestinal: bowel sounds, distended, non-tender, other (no guarding), soft Extremities: edema Results Result Diagram: 11/27/16 0400 11/27/16 0400 Results 24 hrs Laboratory Tests Test 11/26/16 16:54 11/26/16 20:18 11/27/16 04:00 11/27/16 08:13 Bedside Glucose 102 155 73 Anion Gap 20 H Basophils # 0.0 Basophils % 0.1 Blood Morphology Comment Blood Urea Nitrogen 68 H Calcium Level 7.3 L Carbon Dioxide Level 23 Chloride Level 89 L Creatinine 7.11 H Eosinophils # 0.3 Eosinophils % 3.5 Glucose Level 78 Hematocrit 28.6 L Hemoglobin 9.7 L Lymphocytes # 1.0 Lymphocytes % 11.6 L Mean Corpuscular Hemoglobin 29.3 Mean Corpuscular Hemoglobin Concent 34.1 Mean Corpuscular Volume 86.2 Mean Platelet Volume 6.6 L Monocytes # 0.6 Monocytes % 6.8 Neutrophils # 7.0 Neutrophils % 78.0 H Nucleated Red Blood Cells # 0.0 Nucleated Red Blood Cells % 0.0 Platelet Count 152 # Potassium Level 4.8 Red Blood Count 3.31 L Red Cell Distribution Width 20.0 H Sodium Level 127 L White Blood Count 8.9 # Test 11/27/16 11:34 Bedside Glucose 131 Medications Medications Current Medications Lorazepam (Ativan) 0.5 mg Q8H PRN PO ANXIETY Last administered on 11/26/16 22: 57; Admin Dose 0.5 MG; Start 11/20/16 at 12:00 Ondansetron HCl (Zofran Inj) 4 mg Q6H PRN IV NAUSEA AND/OR VOMITING Last administered on 11/23/16 05:32; Admin Dose 4 MG; Start 11/20/16 at 12:00 Aspirin (Aspirin) 81 mg DAILY PO Last administered on 11/27/16 09:31; Admin Dose 81 MG; Start 11/21/16 at 09:00 Nitroglycerin (Nitroglycerin (Sl Tab) 0.4 Mg) 1 tab Q5M PRN SL CHEST PAIN; Start 11/20/16 at 12:00 Acetaminophen (Tylenol Tab) 650 mg Q6H PRN PO PAIN LEVEL 1-3 OR FEVER; Start at 12:00 Morphine Sulfate (morphine) 2 mg Q4H PRN IV PAIN LEVEL 7-10 Last administered on 11/27/16 11:27; Admin Dose 2 MG; Start 11/20/16 at 12:00 Zolpidem Tartrate (Ambien) 5 mg QHS PRN PO INSOMNIA; Start 11/20/16 at 12:00 Pantoprazole (Protonix Tab) 40 mg DAILY@06 PO Last administered on 11/27/16 06: 18; Admin Dose 40 MG; Start 11/21/16 at 06:00 Miscellaneous Information 1 ea NOTE XX ; Start 11/20/16 at 12:30 Glucose (Glutose) 15 gm Q15M PRN PO DECREASED GLUCOSE; Start 11/20/16 at 12:30 Glucose (Glutose) 22.5 gm Q15M PRN PO DECREASED GLUCOSE; Start 11/20/16 at 12: 30 Dextrose (D50w Syringe) 25 ml Q15M PRN IV DECREASED GLUCOSE; Start 11/20/16 at 12:30 Dextrose (D50w Syringe) 50 ml Q15M PRN IV DECREASED GLUCOSE; Start 11/20/16 at 12:30 Glucagon (Glucagen) 1 mg Q15M PRN IM DECREASED GLUCOSE; Start 11/20/16 at 12:30 Glucose (Glutose) 15 gm Q15M PRN BUCCAL DECREASED GLUCOSE; Start 11/20/16 at 12 :30 Levothyroxine Sodium 125 mcg 125 mcg DAILY@06 PO Last administered on 11/27/16 07:01; Admin Dose 125 MCG; Start 11/22/16 at 06:00 Dopamine HCl/ Dextrose 250 ml @ 5.318 mls/ hr TITRATE IV Last administered on 11/23/16 07:11; Admin Dose 13.294 MLS/HR; Start 11/23/16 at 06:30 Guaifenesin (Robitussin Liquid Cup) 100 mg Q6H PRN PO COUGH Last administered on 11/25/16 21:58; Admin Dose 100 MG; Start 11/23/16 at 16:30 IV Flush (NS 10 ml) 10 ml PRN PRN IV IV PROTOCOL; Start 11/24/16 at 15:30 Insulin Glargine 15 unit 15 unit HS SC Last administered on 11/26/16 20:21; Admin Dose 15 UNIT; Start 11/26/16 at 21:00 Norepinephrine/ Dextrose (Levophed/D5W) 500 ml @ 1.87 mls/hr TITRATE IV ; Start 11/26/16 at 17:30 Harpreet Cee DO Nov 27, 2016 12:37
--- NOTE | 2016-11-27 14:12 | PN ---
Date/Time of Note Date/Time of Note DATE: 11/27/16 TIME: 14:10 Assessment/Plan VTE Prophylaxis VTE Prophylaxis Intervention: SCD's Lines/Catheters IV C[facility] Type ([facility] PICC Line Central line still needed: Yes Urinary Cath still in place: No Assessment/Plan Chief Complaint/Hosp Course ASSESSMENT AND PLAN: - Severe hypotension requiring pressors, resolving, continue ICU care. - Congestive heart failure exacerbation with ejection fraction of 20% per last echo. Continue to remove fluids with hemodialysis. - Ascites, status post paracentesis. Patient was increased ascites today, paracentesis today. - End-stage renal disease, hemodialysis-dependent. Dr. Maddox is following from nephrology standpoint. Continue patient on hemodialysis. - Coronary artery disease status post coronary artery bypass graft. Continue patient on aspirin and Coreg. Dr. Cee is following from cardiology standpoint. - Hypothyroidism. TSH is 14, Synthroid increased to 125. - Diabetes mellitus type 2. Continue to monitor blood sugar with mild algorithm scale, NovoLog coverage. - Hemodialysis access, status post right AV fistulogram by Dr. Loco, vascular surgery on 11/21. - Liver cirrhosis and portal hypertension. Dr. Kirkpatrick is following in gastroenterology consultation. Continue Protonix for peptic ulcer disease prophylaxis. Further recommendations based on clinical course. Plan of care discussed with Dr. Vick. Problems: Subjective 24 Hr Interval Summary Free Text/Dictation Patient is undergoing hemodialysis, Levophed drip weaned off last night, continue to observe blood pressure in ICU. Exam/Review of Systems Vital Signs Vitals Vital Signs Date Time Temp Pulse Resp B/P Pulse Ox O2 Delivery O2 Flow Rate FiO2 11/27/16 13:15 106 11/27/16 13:00 15 86/64 100 Room Air 11/27/16 12:00 97.5 11/26/16 01:00 2.0 Intake and Output 11/26/16 11/26/16 11/27/16 15:00 23:00 07:00 Intake Total 581.22 ml 420 ml 0 ml Output Total 20 ml 0 ml 0 ml Balance 561.22 ml 420 ml 0 ml Exam GENERAL: well-developed, well-nourished male, currently is awake, alert. HEENT: Head is atraumatic, normocephalic. NECK: Supple. JVD is present, no cervical lymphadenopathy. CHEST: Lungs are clear bilaterally, slightly diminished at the bases. CARDIOVASCULAR: Regular rhythm and rate, normal S1, S2. No murmurs, gallops, clicks, rubs noted. The patient has a left chest permanent pacemaker with AICD. GASTROINTESTINAL: Abdomen is protuberant, soft, slightly distended, nontender. Bowel sounds present. No guarding, no rebound tenderness. SKIN: No rash, petechiae. EXTREMITIES: The patient has bilateral lower extremity edema, 3+. NEUROLOGIC: The patient is awake, alert and oriented x3. Results Result Diagram: 11/27/16 0400 11/27/16 0400 Results 24 hrs Laboratory Tests Test 11/26/16 16:54 11/26/16 20:18 11/27/16 04:00 11/27/16 08:13 Bedside Glucose 102 155 73 Anion Gap 20 H Basophils # 0.0 Basophils % 0.1 Blood Morphology Comment Blood Urea Nitrogen 68 H Calcium Level 7.3 L Carbon Dioxide Level 23 Chloride Level 89 L Creatinine 7.11 H Eosinophils # 0.3 Eosinophils % 3.5 Glucose Level 78 Hematocrit 28.6 L Hemoglobin 9.7 L Lymphocytes # 1.0 Lymphocytes % 11.6 L Mean Corpuscular Hemoglobin 29.3 Mean Corpuscular Hemoglobin Concent 34.1 Mean Corpuscular Volume 86.2 Mean Platelet Volume 6.6 L Monocytes # 0.6 Monocytes % 6.8 Neutrophils # 7.0 Neutrophils % 78.0 H Nucleated Red Blood Cells # 0.0 Nucleated Red Blood Cells % 0.0 Platelet Count 152 # Potassium Level 4.8 Red Blood Count 3.31 L Red Cell Distribution Width 20.0 H Sodium Level 127 L White Blood Count 8.9 # Test 11/27/16 11:34 Bedside Glucose 131 Medications Medications Current Medications Lorazepam (Ativan) 0.5 mg Q8H PRN PO ANXIETY Last administered on 11/26/16 22: 57; Admin Dose 0.5 MG; Start 11/20/16 at 12:00 Ondansetron HCl (Zofran Inj) 4 mg Q6H PRN IV NAUSEA AND/OR VOMITING Last administered on 11/23/16 05:32; Admin Dose 4 MG; Start 11/20/16 at 12:00 Aspirin (Aspirin) 81 mg DAILY PO Last administered on 11/27/16 09:31; Admin Dose 81 MG; Start 11/21/16 at 09:00 Nitroglycerin (Nitroglycerin (Sl Tab) 0.4 Mg) 1 tab Q5M PRN SL CHEST PAIN; Start 11/20/16 at 12:00 Acetaminophen (Tylenol Tab) 650 mg Q6H PRN PO PAIN LEVEL 1-3 OR FEVER; Start at 12:00 Morphine Sulfate (morphine) 2 mg Q4H PRN IV PAIN LEVEL 7-10 Last administered on 11/27/16 11:27; Admin Dose 2 MG; Start 11/20/16 at 12:00 Zolpidem Tartrate (Ambien) 5 mg QHS PRN PO INSOMNIA; Start 11/20/16 at 12:00 Pantoprazole (Protonix Tab) 40 mg DAILY@06 PO Last administered on 11/27/16 06: 18; Admin Dose 40 MG; Start 11/21/16 at 06:00 Miscellaneous Information 1 ea NOTE XX ; Start 11/20/16 at 12:30 Glucose (Glutose) 15 gm Q15M PRN PO DECREASED GLUCOSE; Start 11/20/16 at 12:30 Glucose (Glutose) 22.5 gm Q15M PRN PO DECREASED GLUCOSE; Start 11/20/16 at 12: 30 Dextrose (D50w Syringe) 25 ml Q15M PRN IV DECREASED GLUCOSE; Start 11/20/16 at 12:30 Dextrose (D50w Syringe) 50 ml Q15M PRN IV DECREASED GLUCOSE; Start 11/20/16 at 12:30 Glucagon (Glucagen) 1 mg Q15M PRN IM DECREASED GLUCOSE; Start 11/20/16 at 12:30 Glucose (Glutose) 15 gm Q15M PRN BUCCAL DECREASED GLUCOSE; Start 11/20/16 at 12 :30 Levothyroxine Sodium 125 mcg 125 mcg DAILY@06 PO Last administered on 11/27/16 07:01; Admin Dose 125 MCG; Start 11/22/16 at 06:00 Dopamine HCl/ Dextrose 250 ml @ 5.318 mls/ hr TITRATE IV Last administered on 11/23/16 07:11; Admin Dose 13.294 MLS/HR; Start 11/23/16 at 06:30 Guaifenesin (Robitussin Liquid Cup) 100 mg Q6H PRN PO COUGH Last administered on 2/4/17at 21:58; Admin Dose 100 MG; Start 11/23/16 at 16:30 IV Flush (NS 10 ml) 10 ml PRN PRN IV IV PROTOCOL; Start 11/24/16 at 15:30 Insulin Glargine 15 unit 15 unit HS SC Last administered on 11/26/16t 20:21; Admin Dose 15 UNIT; Start 11/26/16 at 21:00 Norepinephrine/ Dextrose (Levophed/D5W) 500 ml @ 1.87 mls/hr TITRATE IV ; Start 11/26/16 at 17:30 DICKSON GROSSMAN Nov 27, 2016 14:12
[2016-11-27] MEDS: MIDODRINE 5 MG TAB PO SCH (17:22)
--- NOTE | 2016-11-27 18:32 | CONS ---
Date/Time of Note Date/Time of Note DATE: 11/27/16 TIME: 18:31 Assessment/Plan Assessment/Plan Additional Assessment/Plan IMPRESSION: 1. Congestive heart failure, status post automatic implantable cardioverter- defibrillator.feels better,no s.o.b,EF of 20% 2. End-stage renal disease on dialysis. 3. Coronary artery disease status post coronary artery bypass graft. 4. Diabetes mellitus. 5. Hypothyroidism. 6. Ascites. 7. Anemia. 8. Mild elevation of alkaline phosphatase. 9. Cirrhosis of liver with portal hypertension. 10. pt.became hypotensive and transferred to ICU for pressor support 11.s/p large volume paracentesis on 11/22/15 12.anemia r/o gi bleeding 13. hypotension on Levophed PLAN: 1. At this point, is to continue with dialysis and take out more fluid during dialysis. 2. Paracentesis on a need basis under the cover of albumin. 3. Continue all his medication. 4. The patient is not a candidate for TIPS given his renal failure and cardiomyopathy. 5. He has refractory ascites, 6. no paracentesis until BP stabilized 7.Midodrine 8.low sodium diet Consultation Date/Type/Reason Admit Date/Time Nov 20, 2016 at 09:34 Initial Consult Date 11/21/16 Type of Consultation: cv Referring Provider: DEMETRA BRUNO MD 24 HR Interval Summary Constitutional: improved Exam/Review of Systems Vital Signs Vitals Vital Signs Date Time Temp Pulse Resp B/P Pulse Ox O2 Delivery O2 Flow Rate FiO2 11/27/16 18:00 104 14 102/79 100 Room Air 11/27/16 16:00 97.9 11/26/16 01:00 2.0 Intake and Output 11/26/16 11/26/16 11/27/16 15:00 23:00 07:00 Intake Total 581.22 ml 420 ml 0 ml Output Total 20 ml 0 ml 0 ml Balance 561.22 ml 420 ml 0 ml Exam Constitutional: alert, oriented, well developed Psych: nl mood/affect, no complaints Head: atraumatic, normocephalic Eyes: EOMI, PERRL, nl conjunctiva, nl lids, nl sclera ENMT: nl external ears & nose, nl lips & teeth, nl nasal mucosa & septum Neck: non-tender, supple Respiratory: clear to auscultation, normal air movement Cardiovascular: nl pulses, regular rate and rhythm Gastrointestinal: nl liver, spleen, non-tender, soft Musculoskeletal: nl extremities to inspection, nl gait and stance Extremities: normal pulses 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: SHUTTLE THREADER 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, nl mental status, nl speech, nl strength Skin: nl turgor, No rash or lesions Lymph: nl lymph nodes Results Result Diagram: 11/27/16 0400 11/27/16 0400 Results 24 hrs Laboratory Tests Test 11/26/16 20:18 11/27/16 04:00 11/27/16 08:13 11/27/16 11:34 Bedside Glucose 155 73 131 Anion Gap 20 H Basophils # 0.0 Basophils % 0.1 Blood Morphology Comment Blood Urea Nitrogen 68 H Calcium Level 7.3 L Carbon Dioxide Level 23 Chloride Level 89 L Creatinine 7.11 H Eosinophils # 0.3 Eosinophils % 3.5 Glucose Level 78 Hematocrit 28.6 L Hemoglobin 9.7 L Lymphocytes # 1.0 Lymphocytes % 11.6 L Mean Corpuscular Hemoglobin 29.3 Mean Corpuscular Hemoglobin Concent 34.1 Mean Corpuscular Volume 86.2 Mean Platelet Volume 6.6 L Monocytes # 0.6 Monocytes % 6.8 Neutrophils # 7.0 Neutrophils % 78.0 H Nucleated Red Blood Cells # 0.0 Nucleated Red Blood Cells % 0.0 Platelet Count 152 # Potassium Level 4.8 Red Blood Count 3.31 L Red Cell Distribution Width 20.0 H Sodium Level 127 L White Blood Count 8.9 # Test 11/27/16 17:00 Bedside Glucose 94 Medications Medications Current Medications Lorazepam (Ativan) 0.5 mg Q8H PRN PO ANXIETY Last administered on 11/26/16 22: 57; Admin Dose 0.5 MG; Start 11/20/16 at 12:00 Ondansetron HCl (Zofran Inj) 4 mg Q6H PRN IV NAUSEA AND/OR VOMITING Last administered on 11/23/16 05:32; Admin Dose 4 MG; Start 11/20/16 at 12:00 Aspirin (Aspirin) 81 mg DAILY PO Last administered on 11/27/16 09:31; Admin Dose 81 MG; Start 11/21/16 at 09:00 Nitroglycerin (Nitroglycerin (Sl Tab) 0.4 Mg) 1 tab Q5M PRN SL CHEST PAIN; Start 11/20/16 at 12:00 Acetaminophen (Tylenol Tab) 650 mg Q6H PRN PO PAIN LEVEL 1-3 OR FEVER; Start at 12:00 Morphine Sulfate (morphine) 2 mg Q4H PRN IV PAIN LEVEL 7-10 Last administered on 11/27/16 17:25; Admin Dose 2 MG; Start 11/20/16 at 12:00 Zolpidem Tartrate (Ambien) 5 mg QHS PRN PO INSOMNIA; Start 11/20/16 at 12:00 Pantoprazole (Protonix Tab) 40 mg DAILY@06 PO Last administered on 11/27/16 06: 18; Admin Dose 40 MG; Start 11/21/16 at 06:00 Miscellaneous Information 1 ea NOTE XX ; Start 11/20/16 at 12:30 Glucose (Glutose) 15 gm Q15M PRN PO DECREASED GLUCOSE; Start 11/20/16 at 12:30 Glucose (Glutose) 22.5 gm Q15M PRN PO DECREASED GLUCOSE; Start 11/20/16 at 12: 30 Dextrose (D50w Syringe) 25 ml Q15M PRN IV DECREASED GLUCOSE; Start 11/20/16 at 12:30 Dextrose (D50w Syringe) 50 ml Q15M PRN IV DECREASED GLUCOSE; Start 11/20/16 at 12:30 Glucagon (Glucagen) 1 mg Q15M PRN IM DECREASED GLUCOSE; Start 11/20/16 at 12:30 Glucose (Glutose) 15 gm Q15M PRN BUCCAL DECREASED GLUCOSE; Start 11/20/16 at 12 :30 Levothyroxine Sodium 125 mcg 125 mcg DAILY@06 PO Last administered on 11/27/16 07:01; Admin Dose 125 MCG; Start 11/22/16 at 06:00 Dopamine HCl/ Dextrose 250 ml @ 5.318 mls/ hr TITRATE IV Last administered on 11/23/16 07:11; Admin Dose 13.294 MLS/HR; Start 11/23/16 at 06:30 Guaifenesin (Robitussin Liquid Cup) 100 mg Q6H PRN PO COUGH Last administered on 11/25/16 21:58; Admin Dose 100 MG; Start 11/23/16 at 16:30 IV Flush (NS 10 ml) 10 ml PRN PRN IV IV PROTOCOL; Start 11/24/16 at 15:30 Insulin Glargine 15 unit 15 unit HS SC Last administered on 11/26/16 20:21; Admin Dose 15 UNIT; Start 11/26/16 at 21:00 Norepinephrine/ Dextrose (Levophed/D5W) 500 ml @ 1.87 mls/hr TITRATE IV Last administered on 11/27/16 16:51; Admin Dose 5.62 MLS/HR; Start 11/26/16 at 17:30 Midodrine (Proamatine) 5 mg BID@09,17 PO Last administered on 11/27/16 17:22; Admin Dose 5 MG; Start 11/27/16 at 17:00 LOR MASON MD Nov 27, 2016 18:31
[2016-11-27] MEDS: INSULIN GLARGINE [LANtus] 3 ML PEN SC SCH (21:02)
--- NOTE | 2016-11-27 23:02 | CONS ---
Date/Time of Note Date/Time of Note DATE: 11/27/16 TIME: 23:02 Assessment/Plan Assessment/Plan Chief Complaint/Hosp Course Next HD in AM Problems: (1) ESRD (end stage renal disease) Status: Chronic Comment: Pt had HD without problem (2) Anemia Status: Chronic (3) Ascites Status: Chronic Comment: PRN paracentasis per PMD Qualifiers: Ascites type: other type Qualified Code: R18.8 - Other ascites (4) CHF (congestive heart failure) Status: Chronic Comment: will continue po fluid restriction Qualifiers: Congestive heart failure type: unspecified congestive heart failure type (5) Hypotension Comment: Most like related to cardiomyopathy Will have to continue midodrin Consultation Date/Type/Reason Admit Date/Time Nov 20, 2016 at 09:34 Initial Consult Date 11/21/16 Type of Consultation: renal Referring Provider: DEMETRA BRUNO MD 24 HR Interval Summary Free Text/Dictation Remains awake & alert Subjective hx not possible: other (BP continues to be below 90 systolic) Exam/Review of Systems Vital Signs Vitals Vital Signs Date Time Temp Pulse Resp B/P Pulse Ox O2 Delivery O2 Flow Rate FiO2 11/27/16 22:15 107 17 107/71 92 Room Air 11/27/16 20:00 98.2 11/26/16 01:00 2.0 Intake and Output 11/26/16 11/26/16 11/27/16 15:00 23:00 07:00 Intake Total 581.22 ml 420 ml 0 ml Output Total 20 ml 0 ml 0 ml Balance 561.22 ml 420 ml 0 ml Exam Constitutional: alert, oriented Psych: depression, other (Pointing to ascites that he wishes to get some relief for) Head: normocephalic Eyes: EOMI Neck: supple Respiratory: clear to auscultation Cardiovascular: regular rate and rhythm Gastrointestinal: ascites, bowel sounds, distended, soft 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: TECHNOLOGY PROFESSIONAL 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 Results Hct is improving, Cemistry stable Result Diagram: 11/27/16 0400 11/27/16 0400 Results 24 hrs Laboratory Tests Test 11/27/16 04:00 11/27/16 08:13 11/27/16 11:34 11/27/16 17:00 Anion Gap 20 H Basophils # 0.0 Basophils % 0.1 Blood Morphology Comment Blood Urea Nitrogen 68 H Calcium Level 7.3 L Carbon Dioxide Level 23 Chloride Level 89 L Creatinine 7.11 H Eosinophils # 0.3 Eosinophils % 3.5 Glucose Level 78 Hematocrit 28.6 L Hemoglobin 9.7 L Lymphocytes # 1.0 Lymphocytes % 11.6 L Mean Corpuscular Hemoglobin 29.3 Mean Corpuscular Hemoglobin Concent 34.1 Mean Corpuscular Volume 86.2 Mean Platelet Volume 6.6 L Monocytes # 0.6 Monocytes % 6.8 Neutrophils # 7.0 Neutrophils % 78.0 H Nucleated Red Blood Cells # 0.0 Nucleated Red Blood Cells % 0.0 Platelet Count 152 # Potassium Level 4.8 Red Blood Count 3.31 L Red Cell Distribution Width 20.0 H Sodium Level 127 L White Blood Count 8.9 # Bedside Glucose 73 131 94 Test 11/27/16 20:58 Bedside Glucose 213 Medications Medications Current Medications Lorazepam (Ativan) 0.5 mg Q8H PRN PO ANXIETY Last administered on 11/26/16 22: 57; Admin Dose 0.5 MG; Start 11/20/16 at 12:00 Ondansetron HCl (Zofran Inj) 4 mg Q6H PRN IV NAUSEA AND/OR VOMITING Last administered on 11/23/16 05:32; Admin Dose 4 MG; Start 11/20/16 at 12:00 Aspirin (Aspirin) 81 mg DAILY PO Last administered on 11/27/16 09:31; Admin Dose 81 MG; Start 11/21/16 at 09:00 Nitroglycerin (Nitroglycerin (Sl Tab) 0.4 Mg) 1 tab Q5M PRN SL CHEST PAIN; Start 11/20/16 at 12:00 Acetaminophen (Tylenol Tab) 650 mg Q6H PRN PO PAIN LEVEL 1-3 OR FEVER; Start at 12:00 Morphine Sulfate (morphine) 2 mg Q4H PRN IV PAIN LEVEL 7-10 Last administered on 11/27/16 22:41; Admin Dose 2 MG; Start 11/20/16 at 12:00 Zolpidem Tartrate (Ambien) 5 mg QHS PRN PO INSOMNIA; Start 11/20/16 at 12:00 Pantoprazole (Protonix Tab) 40 mg DAILY@06 PO Last administered on 11/27/16 06: 18; Admin Dose 40 MG; Start 11/21/16 at 06:00 Miscellaneous Information 1 ea NOTE XX ; Start 11/20/16 at 12:30 Glucose (Glutose) 15 gm Q15M PRN PO DECREASED GLUCOSE; Start 11/20/16 at 12:30 Glucose (Glutose) 22.5 gm Q15M PRN PO DECREASED GLUCOSE; Start 11/20/16 at 12: 30 Dextrose (D50w Syringe) 25 ml Q15M PRN IV DECREASED GLUCOSE; Start 11/20/16 at 12:30 Dextrose (D50w Syringe) 50 ml Q15M PRN IV DECREASED GLUCOSE; Start 11/20/16 at 12:30 Glucagon (Glucagen) 1 mg Q15M PRN IM DECREASED GLUCOSE; Start 11/20/16 at 12:30 Glucose (Glutose) 15 gm Q15M PRN BUCCAL DECREASED GLUCOSE; Start 11/20/16 at 12 :30 Levothyroxine Sodium 125 mcg 125 mcg DAILY@06 PO Last administered on 11/27/16 07:01; Admin Dose 125 MCG; Start 11/22/16 at 06:00 Dopamine HCl/ Dextrose 250 ml @ 5.318 mls/ hr TITRATE IV Last administered on 11/23/16 07:11; Admin Dose 13.294 MLS/HR; Start 11/23/16 at 06:30 Guaifenesin (Robitussin Liquid Cup) 100 mg Q6H PRN PO COUGH Last administered on 11/25/16 21:58; Admin Dose 100 MG; Start 11/23/16 at 16:30 IV Flush (NS 10 ml) 10 ml PRN PRN IV IV PROTOCOL; Start 11/24/16 at 15:30 Insulin Glargine 15 unit 15 unit HS SC Last administered on 11/27/16 21:02; Admin Dose 15 UNIT; Start 11/26/16 at 21:00 Norepinephrine/ Dextrose (Levophed/D5W) 500 ml @ 1.87 mls/hr TITRATE IV Last administered on 11/27/16 16:51; Admin Dose 5.62 MLS/HR; Start 11/26/16 at 17:30 Midodrine (Proamatine) 5 mg BID@09,17 PO Last administered on 11/27/16 17:22; Admin Dose 5 MG; Start 11/27/16 at 17:00 MILADY ANDERSON MD Nov 27, 2016 23:02
[2016-11-28] VITALS (50 sets, daily range): BP systolic 65–132; BP diastolic 11–81; PULSE 81–119; RESP 10–25
[2016-11-28] MEDS: morphine 2 MG INJ IV PRN ×5 (03:07→23:39)
[2016-11-28 04:59] LABS: CREATININE 5.18 mg/dl (0.61-1.24)
[2016-11-28 05:00] LABS: CALCIUM 7.6 mg/dl (8.4-10.2)
[2016-11-28 05:12] LABS: POTASSIUM 4.1 mmol/L (3.5-5.1)
[2016-11-28] MEDS: PANTOPRAZOLE (EC) 40 MG TAB PO SCH (05:55)
[2016-11-28] MEDS: LEVOTHYROXINE 125 MCG TAB PO SCH (05:55)
[2016-11-28 06:47] LABS: BASOPHILS % 0.4 % (0.0-2.0); EOSINOPHILS # 0.2 10^3/ul (0.0-0.5); EOSINOPHILS % 2.9 % (0.0-7.0); HEMATOCRIT 29.4 % (42.0-52.0); LYMPHOCYTES # 0.6 10^3/ul (0.8-2.9); LYMPHOCYTES % 7.5 % (15.0-51.0); MEAN CORPUSCULAR HEMOGLOBIN 29.5 pg (29.0-33.0); MEAN CORPUSCULAR HGB CONC 33.9 g/dl (32.0-37.0); MEAN CORPUSCULAR VOLUME 87.1 fl (82.0-101.0); MEAN PLATELET VOLUME 6.8 fl (7.4-10.4); MONOCYTE # 0.8 10^3/ul (0.3-0.9); MONOCYTES % 9.8 % (0.0-11.0); NEUTROPHIL # 6.6 10^3/ul (1.6-7.5); NEUTROPHILS % 79.4 % (39.0-77.0); PLATELET COUNT 199 10^3/UL (140-440); RED BLOOD COUNT 3.38 10^6/ul (4.70-6.10); RED CELL DISTRIBUTION WIDTH 20.6 % (11.5-14.5); UNCORRECTED WBC 8.4 10^3/ul (4.8-10.8); WHITE BLOOD COUNT 8.4 10^3/ul (4.8-10.8)
[2016-11-28 07:22] LABS: CONDITION 1; LH ANALYZER COMMENTS 1
[2016-11-28] MEDS: INSULIN ASPART [NOVOLOG] 3 ML PEN SC SCH ×4 (07:35→21:00)
[2016-11-28] MEDS: MIDODRINE 5 MG TAB PO SCH (09:22)
[2016-11-28] MEDS: ASPIRIN 81 MG TAB PO SCH (09:22)
--- NOTE | 2016-11-28 10:46 | CONS ---
Date/Time of Note Date/Time of Note DATE: 11/28/16 TIME: 10:45 Assessment/Plan Assessment/Plan Additional Assessment/Plan Next HD in AM Problems: (1) ESRD (end stage renal disease) Status: Chronic Comment: Pt had HD without problem (2) Anemia Status: Chronic (3) Ascites Status: Chronic Comment: PRN paracentasis per PMD Qualifiers: Ascites type: other type Qualified Code: R18.8 - Other ascites (4) CHF (congestive heart failure) Status: Chronic Comment: will continue po fluid restriction Qualifiers: Congestive heart failure type: unspecified congestive heart failure type (5) Hypotension Comment: Most like related to cardiomyopathy Will have to continue midodrine, also prior to HD (6) Hyponatremia Cont fluid restriction Consultation Date/Type/Reason Admit Date/Time Nov 20, 2016 at 09:34 Initial Consult Date 11/21/16 Type of Consultation: renal Reason for Consultation ESRD Referring Provider: DEMETRA BRUNO MD 24 HR Interval Summary Free Text/Dictation Off Pressor, S/p HD yesterday -2.4L UF Subjective hx not possible: pt critical status Constitutional: No requiring O2 Exam/Review of Systems Vital Signs Vitals Vital Signs Date Time Temp Pulse Resp B/P Pulse Ox O2 Delivery O2 Flow Rate FiO2 11/28/16 08:45 114 14 114/42 100 Room Air 11/28/16 08:30 98.2 11/26/16 01:00 2.0 Intake and Output 11/27/16 11/27/16 11/28/16 15:00 23:00 07:00 Intake Total 640 ml 144.35 ml 13.09 ml Output Total 2800 ml 0 ml Balance -2160 ml 144.35 ml 13.09 ml Exam Constitutional: No distress ENMT: mucosa pink and moist Neck: No jvd Respiratory: No diminished breath sounds, No labored breathing Cardiovascular: edema, regular rate and rhythm Gastrointestinal: ascites, soft, No rebound or guarding 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: LIQUOR MERCHANT 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, nl mental status, No lethargic Skin: No diaphoresis Results Result Diagram: 11/28/16 0345 11/28/16 0345 Results 24 hrs Laboratory Tests Test 11/27/16 11:34 11/27/16 17:00 11/27/16 20:58 11/28/16 03:45 Bedside Glucose 131 94 213 Anion Gap 19 H Basophils # 0.0 Basophils % 0.4 Blood Morphology Comment Blood Urea Nitrogen 46 #H Calcium Level 7.6 L Carbon Dioxide Level 25 Chloride Level 92 L Creatinine 5.18 H Differential Comment AUTO w/SCAN Eosinophils # 0.2 Eosinophils % 2.9 Glucose Level 137 # Hematocrit 29.4 L Hemoglobin 10.0 L Lymphocytes # 0.6 L Lymphocytes % 7.5 L Mean Corpuscular Hemoglobin 29.5 Mean Corpuscular Hemoglobin Concent 33.9 Mean Corpuscular Volume 87.1 Mean Platelet Volume 6.8 L Monocytes # 0.8 Monocytes % 9.8 Neutrophils # 6.6 Neutrophils % 79.4 H Nucleated Red Blood Cells # 0.0 Nucleated Red Blood Cells % 0.0 Platelet Count 199 # Potassium Level 4.1 Red Blood Count 3.38 L Red Cell Distribution Width 20.6 H Sodium Level 132 L White Blood Count 8.4 Test 11/28/16 07:22 Bedside Glucose 149 Medications Medications Current Medications Lorazepam (Ativan) 0.5 mg Q8H PRN PO ANXIETY Last administered on 11/26/16 22: 57; Admin Dose 0.5 MG; Start 11/20/16 at 12:00 Ondansetron HCl (Zofran Inj) 4 mg Q6H PRN IV NAUSEA AND/OR VOMITING Last administered on 11/23/16 05:32; Admin Dose 4 MG; Start 11/20/16 at 12:00 Aspirin (Aspirin) 81 mg DAILY PO Last administered on 11/28/16 09:22; Admin Dose 81 MG; Start 11/21/16 at 09:00 Nitroglycerin (Nitroglycerin (Sl Tab) 0.4 Mg) 1 tab Q5M PRN SL CHEST PAIN; Start 11/20/16 at 12:00 Acetaminophen (Tylenol Tab) 650 mg Q6H PRN PO PAIN LEVEL 1-3 OR FEVER; Start at 12:00 Morphine Sulfate (morphine) 2 mg Q4H PRN IV PAIN LEVEL 7-10 Last administered on 11/28/16 07:25; Admin Dose 2 MG; Start 11/20/16 at 12:00 Zolpidem Tartrate (Ambien) 5 mg QHS PRN PO INSOMNIA; Start 11/20/16 at 12:00 Pantoprazole (Protonix Tab) 40 mg DAILY@06 PO Last administered on 11/28/16 05: 55; Admin Dose 40 MG; Start 11/21/16 at 06:00 Miscellaneous Information 1 ea NOTE XX ; Start 11/20/16 at 12:30 Glucose (Glutose) 15 gm Q15M PRN PO DECREASED GLUCOSE; Start 11/20/16 at 12:30 Glucose (Glutose) 22.5 gm Q15M PRN PO DECREASED GLUCOSE; Start 11/20/16 at 12: 30 Dextrose (D50w Syringe) 25 ml Q15M PRN IV DECREASED GLUCOSE; Start 11/20/16 at 12:30 Dextrose (D50w Syringe) 50 ml Q15M PRN IV DECREASED GLUCOSE; Start 11/20/16 at 12:30 Glucagon (Glucagen) 1 mg Q15M PRN IM DECREASED GLUCOSE; Start 11/20/16 at 12:30 Glucose (Glutose) 15 gm Q15M PRN BUCCAL DECREASED GLUCOSE; Start 11/20/16 at 12 :30 Levothyroxine Sodium 125 mcg 125 mcg DAILY@06 PO Last administered on 11/28/16 05:55; Admin Dose 125 MCG; Start 11/22/16 at 06:00 Dopamine HCl/ Dextrose 250 ml @ 5.318 mls/ hr TITRATE IV Last administered on 11/23/16 07:11; Admin Dose 13.294 MLS/HR; Start 11/23/16 at 06:30 Guaifenesin (Robitussin Liquid Cup) 100 mg Q6H PRN PO COUGH Last administered on 11/25/16 21:58; Admin Dose 100 MG; Start 11/23/16 at 16:30 IV Flush (NS 10 ml) 10 ml PRN PRN IV IV PROTOCOL; Start 11/24/16 at 15:30 Insulin Glargine 15 unit 15 unit HS SC Last administered on 11/27/16 21:02; Admin Dose 15 UNIT; Start 11/26/16 at 21:00 Norepinephrine/ Dextrose (Levophed/D5W) 500 ml @ 1.87 mls/hr TITRATE IV Last administered on 11/27/16 16:51; Admin Dose 5.62 MLS/HR; Start 11/26/16 at 17:30 Midodrine (Proamatine) 5 mg BID@17 PO Last administered on 11/28/16 09:22; Admin Dose 5 MG; Start 11/27/16 at 17:00 PARRISH DIEGO MD Nov 28, 2016 10:46
--- NOTE | 2016-11-28 13:59 | PN ---
Date/Time of Note Date/Time of Note DATE: 11/28/16 TIME: 13:57 Assessment/Plan VTE Prophylaxis VTE Prophylaxis Intervention: SCD's Lines/Catheters IV Catheter Type (from Nrs): PICC Line Central line still needed: Yes Urinary Cath still in place: No Assessment/Plan Chief Complaint/Hosp Course ASSESSMENT AND PLAN: - Severe hypotension requiring pressors, resolved. - Congestive heart failure exacerbation with ejection fraction of 20% per last echo. Continue to remove fluids with hemodialysis. - Ascites, status post paracentesis. - End-stage renal disease, hemodialysis-dependent. Dr. Maddox is following from nephrology standpoint. Continue patient on hemodialysis. - Coronary artery disease status post coronary artery bypass graft. Continue patient on aspirin and Coreg. Dr. Cee is following from cardiology standpoint. - Hypothyroidism. TSH is 14, Synthroid increased to 125. - Diabetes mellitus type 2. Continue to monitor blood sugar with mild algorithm scale, NovoLog coverage. - Hemodialysis access, status post right AV fistulogram by Dr. Loco, vascular surgery on 11/21. - Liver cirrhosis and portal hypertension. Dr. Kirkpatrick is following in gastroenterology consultation. Continue Protonix for peptic ulcer disease prophylaxis. Further recommendations based on clinical course. Plan of care discussed with Dr. Vick. Problems: Subjective 24 Hr Interval Summary Free Text/Dictation Patient was restarted on low-dose of pressors yesterday after hemodialysis, patient is currently weaned off pressors, sitting in the chair at the bedside eating lunch, patient denies fever nausea vomiting. Exam/Review of Systems Vital Signs Vitals Vital Signs Date Time Temp Pulse Resp B/P Pulse Ox O2 Delivery O2 Flow Rate FiO2 11/28/16 13:30 95 13 122/60 100 11/28/16 13:00 Room Air 11/28/16 12:00 98.0 11/26/16 01:00 2.0 Intake and Output 11/27/16 11/27/16 11/28/16 15:00 23:00 07:00 Intake Total 640 ml 144.35 ml 13.09 ml Output Total 2800 ml 0 ml Balance -2160 ml 144.35 ml 13.09 ml Exam GENERAL: well-developed, well-nourished male, currently is awake, alert. HEENT: Head is atraumatic, normocephalic. NECK: Supple. JVD is present, no cervical lymphadenopathy. CHEST: Lungs are clear bilaterally, slightly diminished at the bases. CARDIOVASCULAR: Regular rhythm and rate, normal S1, S2. No murmurs, gallops, clicks, rubs noted. The patient has a left chest permanent pacemaker with AICD. GASTROINTESTINAL: Abdomen is protuberant, soft, slightly distended, nontender. Bowel sounds present. No guarding, no rebound tenderness. SKIN: No rash, petechiae. EXTREMITIES: The patient has bilateral lower extremity edema, 3+. NEUROLOGIC: The patient is awake, alert and oriented x3. Results Result Diagram: 11/28/16 0345 11/28/16 0345 Results 24 hrs Laboratory Tests Test 11/27/16 17:00 11/27/16 20:58 11/28/16 03:45 11/28/16 07:22 Bedside Glucose 94 213 149 Anion Gap 19 H Basophils # 0.0 Basophils % 0.4 Blood Morphology Comment Blood Urea Nitrogen 46 #H Calcium Level 7.6 L Carbon Dioxide Level 25 Chloride Level 92 L Creatinine 5.18 H Differential Comment AUTO w/SCAN Eosinophils # 0.2 Eosinophils % 2.9 Glucose Level 137 # Hematocrit 29.4 L Hemoglobin 10.0 L Lymphocytes # 0.6 L Lymphocytes % 7.5 L Mean Corpuscular Hemoglobin 29.5 Mean Corpuscular Hemoglobin Concent 33.9 Mean Corpuscular Volume 87.1 Mean Platelet Volume 6.8 L Monocytes # 0.8 Monocytes % 9.8 Neutrophils # 6.6 Neutrophils % 79.4 H Nucleated Red Blood Cells # 0.0 Nucleated Red Blood Cells % 0.0 Platelet Count 199 # Potassium Level 4.1 Red Blood Count 3.38 L Red Cell Distribution Width 20.6 H Sodium Level 132 L White Blood Count 8.4 Test 11/28/16 11:24 Bedside Glucose 144 Medications Medications Current Medications Lorazepam (Ativan) 0.5 mg Q8H PRN PO ANXIETY Last administered on 11/26/16 22: 57; Admin Dose 0.5 MG; Start 11/20/16 at 12:00 Ondansetron HCl (Zofran Inj) 4 mg Q6H PRN IV NAUSEA AND/OR VOMITING Last administered on 11/23/16 05:32; Admin Dose 4 MG; Start 11/20/16 at 12:00 Aspirin (Aspirin) 81 mg DAILY PO Last administered on 11/28/16 09:22; Admin Dose 81 MG; Start 11/21/16 at 09:00 Nitroglycerin (Nitroglycerin (Sl Tab) 0.4 Mg) 1 tab Q5M PRN SL CHEST PAIN; Start 11/20/16 at 12:00 Acetaminophen (Tylenol Tab) 650 mg Q6H PRN PO PAIN LEVEL 1-3 OR FEVER; Start at 12:00 Morphine Sulfate (morphine) 2 mg Q4H PRN IV PAIN LEVEL 7-10 Last administered on 11/28/16 11:25; Admin Dose 2 MG; Start 11/20/16 at 12:00 Zolpidem Tartrate (Ambien) 5 mg QHS PRN PO INSOMNIA; Start 11/20/16 at 12:00 Pantoprazole (Protonix Tab) 40 mg DAILY@06 PO Last administered on 11/28/16 05: 55; Admin Dose 40 MG; Start 11/21/16 at 06:00 Miscellaneous Information 1 ea NOTE XX ; Start 11/20/16 at 12:30 Glucose (Glutose) 15 gm Q15M PRN PO DECREASED GLUCOSE; Start 11/20/16 at 12:30 Glucose (Glutose) 22.5 gm Q15M PRN PO DECREASED GLUCOSE; Start 11/20/16 at 12: 30 Dextrose (D50w Syringe) 25 ml Q15M PRN IV DECREASED GLUCOSE; Start 11/20/16 at 12:30 Dextrose (D50w Syringe) 50 ml Q15M PRN IV DECREASED GLUCOSE; Start 11/20/16 at 12:30 Glucagon (Glucagen) 1 mg Q15M PRN IM DECREASED GLUCOSE; Start 11/20/16 at 12:30 Glucose (Glutose) 15 gm Q15M PRN BUCCAL DECREASED GLUCOSE; Start 11/20/16 at 12 :30 Levothyroxine Sodium 125 mcg 125 mcg DAILY@06 PO Last administered on 11/28/16 05:55; Admin Dose 125 MCG; Start 11/22/16 at 06:00 Dopamine HCl/ Dextrose 250 ml @ 5.318 mls/ hr TITRATE IV Last administered on 11/23/16 07:11; Admin Dose 13.294 MLS/HR; Start 11/23/16 at 06:30 Guaifenesin (Robitussin Liquid Cup) 100 mg Q6H PRN PO COUGH Last administered on 11/25/16 21:58; Admin Dose 100 MG; Start 11/23/16 at 16:30 IV Flush (NS 10 ml) 10 ml PRN PRN IV IV PROTOCOL; Start 11/24/16 at 15:30 Insulin Glargine 15 unit 15 unit HS SC Last administered on 11/27/16 21:02; Admin Dose 15 UNIT; Start 11/26/16 at 21:00 Norepinephrine/ Dextrose (Levophed/D5W) 500 ml @ 1.87 mls/hr TITRATE IV Last administered on 11/27/16 16:51; Admin Dose 5.62 MLS/HR; Start 11/26/16 at 17:30 Midodrine (Proamatine) 5 mg BID@09,17 PO Last administered on 11/28/16 09:22; Admin Dose 5 MG; Start 11/27/16 at 17:00 DICKSON GROSSMAN Nov 28, 2016 13:59
--- NOTE | 2016-11-28 16:12 | CONS ---
Date/Time of Note Date/Time of Note DATE: 11/28/16 TIME: 16:10 Assessment/Plan Assessment/Plan Additional Assessment/Plan Hypotension, improving AV fistula stenosis status post venoplasty Acute decompensated systolic and diastolic heart failure Cardiomyopathy, likely ischemic and nonischemic in origin with an ejection fraction less than 20%. (Denied cardiac transplant at [facility]) Biventricular pacemaker and ICD Mitral and tricuspid valve regurgitation. Severe pulmonary hypertension. End-stage renal disease on hemodialysis Ascites status post paracentesis -Patient currently off IV pressors, was put on Midodrine, would adjust to when necessary if systolic blood pressure less than 80. Continue to hold antihypertensive medications. Okay to transfer to telemetry at the current time. Consultation Date/Type/Reason Admit Date/Time Nov 20, 2016 at 09:34 Initial Consult Date 11/21/16 Type of Consultation: cv Referring Provider: DEMETRA BRUNO MD 24 HR Interval Summary Free Text/Dictation Patient denies shortness of breath or chest pain. Main complaint is increased abdominal distention from ascites Exam/Review of Systems Vital Signs Vitals Vital Signs Date Time Temp Pulse Resp B/P Pulse Ox O2 Delivery O2 Flow Rate FiO2 11/28/16 13:30 95 13 122/60 100 11/28/16 13:00 Room Air 11/28/16 12:00 98.0 11/26/16 01:00 2.0 Intake and Output 11/27/16 11/27/16 11/28/16 15:00 23:00 07:00 Intake Total 640 ml 144.35 ml 13.09 ml Output Total 2800 ml 0 ml Balance -2160 ml 144.35 ml 13.09 ml Exam No apparent distress Constitutional: alert, frail, oriented Head: normocephalic Neck: supple Respiratory: other (course breath sounds bilaterally, no wheezing) Cardiovascular: other (S1 and S2 heard), regular rate and rhythm, systolic murmur Gastrointestinal: bowel sounds, distended, non-tender, soft Extremities: edema Results Result Diagram: 11/28/16 0345 11/28/16 0345 Results 24 hrs Laboratory Tests Test 11/27/16 17:00 11/27/16 20:58 11/28/16 03:45 11/28/16 07:22 Bedside Glucose 94 213 149 Anion Gap 19 H Basophils # 0.0 Basophils % 0.4 Blood Morphology Comment Blood Urea Nitrogen 46 #H Calcium Level 7.6 L Carbon Dioxide Level 25 Chloride Level 92 L Creatinine 5.18 H Differential Comment AUTO w/SCAN Eosinophils # 0.2 Eosinophils % 2.9 Glucose Level 137 # Hematocrit 29.4 L Hemoglobin 10.0 L Lymphocytes # 0.6 L Lymphocytes % 7.5 L Mean Corpuscular Hemoglobin 29.5 Mean Corpuscular Hemoglobin Concent 33.9 Mean Corpuscular Volume 87.1 Mean Platelet Volume 6.8 L Monocytes # 0.8 Monocytes % 9.8 Neutrophils # 6.6 Neutrophils % 79.4 H Nucleated Red Blood Cells # 0.0 Nucleated Red Blood Cells % 0.0 Platelet Count 199 # Potassium Level 4.1 Red Blood Count 3.38 L Red Cell Distribution Width 20.6 H Sodium Level 132 L White Blood Count 8.4 Test 11/28/16 11:24 Bedside Glucose 144 Medications Medications Current Medications Lorazepam (Ativan) 0.5 mg Q8H PRN PO ANXIETY Last administered on 11/26/16 22: 57; Admin Dose 0.5 MG; Start 11/20/16 at 12:00 Ondansetron HCl (Zofran Inj) 4 mg Q6H PRN IV NAUSEA AND/OR VOMITING Last administered on 11/23/16 05:32; Admin Dose 4 MG; Start 11/20/16 at 12:00 Aspirin (Aspirin) 81 mg DAILY PO Last administered on 11/28/16 09:22; Admin Dose 81 MG; Start 11/21/16 at 09:00 Nitroglycerin (Nitroglycerin (Sl Tab) 0.4 Mg) 1 tab Q5M PRN SL CHEST PAIN; Start 11/20/16 at 12:00 Acetaminophen (Tylenol Tab) 650 mg Q6H PRN PO PAIN LEVEL 1-3 OR FEVER; Start at 12:00 Morphine Sulfate (morphine) 2 mg Q4H PRN IV PAIN LEVEL 7-10 Last administered on 11/28/16 11:25; Admin Dose 2 MG; Start 11/20/16 at 12:00 Zolpidem Tartrate (Ambien) 5 mg QHS PRN PO INSOMNIA; Start 11/20/16 at 12:00 Pantoprazole (Protonix Tab) 40 mg DAILY@06 PO Last administered on 11/28/16 05: 55; Admin Dose 40 MG; Start 11/21/16 at 06:00 Miscellaneous Information 1 ea NOTE XX ; Start 11/20/16 at 12:30 Glucose (Glutose) 15 gm Q15M PRN PO DECREASED GLUCOSE; Start 11/20/16 at 12:30 Glucose (Glutose) 22.5 gm Q15M PRN PO DECREASED GLUCOSE; Start 11/20/16 at 12: 30 Dextrose (D50w Syringe) 25 ml Q15M PRN IV DECREASED GLUCOSE; Start 11/20/16 at 12:30 Dextrose (D50w Syringe) 50 ml Q15M PRN IV DECREASED GLUCOSE; Start 11/20/16 at 12:30 Glucagon (Glucagen) 1 mg Q15M PRN IM DECREASED GLUCOSE; Start 11/20/16 at 12:30 Glucose (Glutose) 15 gm Q15M PRN BUCCAL DECREASED GLUCOSE; Start 11/20/16 at 12 :30 Levothyroxine Sodium (Synthroid) 125 mcg DAILY@06 PO Last administered on 05:55; Admin Dose 125 MCG; Start 11/22/16 at 06:00 Guaifenesin (Robitussin Liquid Cup) 100 mg Q6H PRN PO COUGH Last administered on 11/25/16 21:58; Admin Dose 100 MG; Start 11/23/16 at 16:30 IV Flush (NS 10 ml) 10 ml PRN PRN IV IV PROTOCOL; Start 11/24/16 at 15:30 Insulin Glargine (Lantus) 15 unit HS SC Last administered on 11/27/16 21:02; Admin Dose 15 UNIT; Start 11/26/16 at 21:00 Midodrine (Proamatine) 5 mg BID@17 PO Last administered on 11/28/16 09:22; Admin Dose 5 MG; Start 11/27/16 at 17:00 Harpreet Cee DO Nov 28, 2016 16:12
[2016-11-28] MEDS: MIDODRINE 5 MG TAB PO PRN (19:48)
--- NOTE | 2016-11-28 19:56 | CONS ---
Date/Time of Note Date/Time of Note DATE: 11/28/16 TIME: 19:55 Assessment/Plan Assessment/Plan Additional Assessment/Plan IMPRESSION: 1. Congestive heart failure, status post automatic implantable cardioverter- defibrillator.feels better,no s.o.b,EF of 20% 2. End-stage renal disease on dialysis. 3. Coronary artery disease status post coronary artery bypass graft. 4. Diabetes mellitus. 5. Hypothyroidism. 6. Ascites. 7. Anemia. 8. Mild elevation of alkaline phosphatase. 9. Cirrhosis of liver with portal hypertension. 10. pt.became hypotensive and transferred to ICU for pressor support 11.s/p large volume paracentesis on 11/22/15 12.anemia r/o gi bleeding 13. hypotension PLAN: 1. At this point, is to continue with dialysis and take out more fluid during dialysis. 2. Paracentesis on a need basis under the cover of albumin. 3. Continue all his medication. 4. The patient is not a candidate for TIPS given his renal failure and cardiomyopathy. 5. He has refractory ascites, 6. no paracentesis until BP stabilized 7.Midodrine 8.low sodium diet Consultation Date/Type/Reason Admit Date/Time Nov 20, 2016 at 09:34 Initial Consult Date 11/21/16 Type of Consultation: cv Referring Provider: DEMETRA BRUNO MD 24 HR Interval Summary Constitutional: improved Exam/Review of Systems Vital Signs Vitals Vital Signs Date Time Temp Pulse Resp B/P Pulse Ox O2 Delivery O2 Flow Rate FiO2 11/28/16 18:00 97 19 121/51 95 Room Air 11/28/16 17:30 97.8 11/26/16 01:00 2.0 Intake and Output 11/27/16 11/27/16 11/28/16 15:00 23:00 07:00 Intake Total 640 ml 144.35 ml 13.09 ml Output Total 2800 ml 0 ml Balance -2160 ml 144.35 ml 13.09 ml Exam Constitutional: alert, oriented, well developed Psych: nl mood/affect, no complaints Head: atraumatic, normocephalic Eyes: EOMI, PERRL, nl conjunctiva, nl lids, nl sclera ENMT: nl external ears & nose, nl lips & teeth, nl nasal mucosa & septum Neck: non-tender, supple Respiratory: clear to auscultation, normal air movement Cardiovascular: nl pulses, regular rate and rhythm Gastrointestinal: nl liver, spleen, non-tender, soft Musculoskeletal: nl extremities to inspection, nl gait and stance Extremities: normal pulses 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: CLERK ENTRY LEVEL 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, nl mental status, nl speech, nl strength Skin: nl turgor, No rash or lesions Lymph: nl lymph nodes Results Result Diagram: 11/28/16 0345 11/28/16 0345 Results 24 hrs Laboratory Tests Test 11/27/16 20:58 11/28/16 03:45 11/28/16 07:22 11/28/16 11:24 Bedside Glucose 213 149 144 Anion Gap 19 H Basophils # 0.0 Basophils % 0.4 Blood Morphology Comment Blood Urea Nitrogen 46 #H Calcium Level 7.6 L Carbon Dioxide Level 25 Chloride Level 92 L Creatinine 5.18 H Differential Comment AUTO w/SCAN Eosinophils # 0.2 Eosinophils % 2.9 Glucose Level 137 # Hematocrit 29.4 L Hemoglobin 10.0 L Lymphocytes # 0.6 L Lymphocytes % 7.5 L Mean Corpuscular Hemoglobin 29.5 Mean Corpuscular Hemoglobin Concent 33.9 Mean Corpuscular Volume 87.1 Mean Platelet Volume 6.8 L Monocytes # 0.8 Monocytes % 9.8 Neutrophils # 6.6 Neutrophils % 79.4 H Nucleated Red Blood Cells # 0.0 Nucleated Red Blood Cells % 0.0 Platelet Count 199 # Potassium Level 4.1 Red Blood Count 3.38 L Red Cell Distribution Width 20.6 H Sodium Level 132 L White Blood Count 8.4 Test 11/28/16 17:00 Bedside Glucose 120 Medications Medications Current Medications Lorazepam (Ativan) 0.5 mg Q8H PRN PO ANXIETY Last administered on 11/26/16 22: 57; Admin Dose 0.5 MG; Start 11/20/16 at 12:00 Ondansetron HCl (Zofran Inj) 4 mg Q6H PRN IV NAUSEA AND/OR VOMITING Last administered on 11/23/16 05:32; Admin Dose 4 MG; Start 11/20/16 at 12:00 Aspirin (Aspirin) 81 mg DAILY PO Last administered on 11/28/16 09:22; Admin Dose 81 MG; Start 11/21/16 at 09:00 Nitroglycerin (Nitroglycerin (Sl Tab) 0.4 Mg) 1 tab Q5M PRN SL CHEST PAIN; Start 11/20/16 at 12:00 Acetaminophen (Tylenol Tab) 650 mg Q6H PRN PO PAIN LEVEL 1-3 OR FEVER; Start at 12:00 Morphine Sulfate (morphine) 2 mg Q4H PRN IV PAIN LEVEL 7-10 Last administered on 11/28/16 16:11; Admin Dose 2 MG; Start 11/20/16 at 12:00 Zolpidem Tartrate (Ambien) 5 mg QHS PRN PO INSOMNIA; Start 11/20/16 at 12:00 Pantoprazole (Protonix Tab) 40 mg DAILY@06 PO Last administered on 11/28/16 05: 55; Admin Dose 40 MG; Start 11/21/16 at 06:00 Miscellaneous Information 1 ea NOTE XX ; Start 11/20/16 at 12:30 Glucose (Glutose) 15 gm Q15M PRN PO DECREASED GLUCOSE; Start 11/20/16 at 12:30 Glucose (Glutose) 22.5 gm Q15M PRN PO DECREASED GLUCOSE; Start 11/20/16 at 12: 30 Dextrose (D50w Syringe) 25 ml Q15M PRN IV DECREASED GLUCOSE; Start 11/20/16 at 12:30 Dextrose (D50w Syringe) 50 ml Q15M PRN IV DECREASED GLUCOSE; Start 11/20/16 at 12:30 Glucagon (Glucagen) 1 mg Q15M PRN IM DECREASED GLUCOSE; Start 11/20/16 at 12:30 Glucose (Glutose) 15 gm Q15M PRN BUCCAL DECREASED GLUCOSE; Start 11/20/16 at 12 :30 Levothyroxine Sodium (Synthroid) 125 mcg DAILY@06 PO Last administered on 05:55; Admin Dose 125 MCG; Start 11/22/16 at 06:00 Guaifenesin (Robitussin Liquid Cup) 100 mg Q6H PRN PO COUGH Last administered on 11/25/16 21:58; Admin Dose 100 MG; Start 11/23/16 at 16:30 IV Flush (NS 10 ml) 10 ml PRN PRN IV IV PROTOCOL; Start 11/24/16 at 15:30 Insulin Glargine (Lantus) 15 unit HS SC Last administered on 11/27/16 21:02; Admin Dose 15 UNIT; Start 11/26/16 at 21:00 Midodrine (Proamatine) 5 mg BID@ PRN PO sbp<80 Last administered on t 19:48; Admin Dose 5 MG; Start 11/28/16 at 17:00 LOR MASON MD Nov 28, 2016 19:56
[2016-11-28] MEDS: INSULIN GLARGINE [LANtus] 3 ML PEN SC SCH (22:10)
[2016-11-29] VITALS (29 sets, daily range): BP systolic 84–180; BP diastolic 39–99; PULSE 85–123; RESP 10–19
[2016-11-29] MEDS: morphine 2 MG INJ IV PRN ×4 (04:30→20:27)
[2016-11-29] MEDS: PANTOPRAZOLE (EC) 40 MG TAB PO SCH (05:26)
[2016-11-29] MEDS: LEVOTHYROXINE 125 MCG TAB PO SCH (05:26)
--- NOTE | 2016-11-29 06:33 | CONS ---
Date/Time of Note Date/Time of Note DATE: 11/29/16 TIME: 06:32 Assessment/Plan Assessment/Plan Additional Assessment/Plan Problems: (1) ESRD (end stage renal disease) Status: Chronic Comment: HD MWF (2) Anemia Status: Chronic (3) Ascites Status: Chronic Comment: PRN paracentasis per PMD Qualifiers: Ascites type: other type Qualified Code: R18.8 - Other ascites (4) CHF (congestive heart failure) Status: Chronic Comment: will continue po fluid restriction Qualifiers: Congestive heart failure type: unspecified congestive heart failure type (5) Hypotension Comment: Most like related to cardiomyopathy Will have to continue midodrine, also prior to HD (6) Hyponatremia Cont fluid restriction Consultation Date/Type/Reason Admit Date/Time Nov 20, 2016 at 09:34 Initial Consult Date 11/21/16 Type of Consultation: Nephrology Referring Provider: DEMETRA BRUNO MD 24 HR Interval Summary Free Text/Dictation Pt transferred out of ICU Exam/Review of Systems Vital Signs Vitals Vital Signs Date Time Temp Pulse Resp B/P Pulse Ox O2 Delivery O2 Flow Rate FiO2 11/29/16 05:48 92 11/29/16 05:30 15 97/56 98 Room Air 11/29/16 04:00 98.1 11/26/16 01:00 2.0 Intake and Output 11/28/16 11/28/16 11/29/16 15:00 23:00 07:00 Intake Total 480 ml 420 ml 100 ml Balance 480 ml 420 ml 100 ml Exam Constitutional: No distress Respiratory: No labored breathing Cardiovascular: edema Gastrointestinal: ascites, soft, No rebound or guarding 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: No lethargic Skin: No diaphoresis Results Result Diagram: 11/28/16 0345 11/28/16 0345 Results 24 hrs Laboratory Tests Test 11/28/16 07:22 11/28/16 11:24 11/28/16 17:00 11/28/16 21:47 Bedside Glucose 149 144 120 147 Medications Medications Current Medications Lorazepam (Ativan) 0.5 mg Q8H PRN PO ANXIETY Last administered on 11/26/16t 22: 57; Admin Dose 0.5 MG; Start 11/20/16 at 12:00 Ondansetron HCl (Zofran Inj) 4 mg Q6H PRN IV NAUSEA AND/OR VOMITING Last administered on 11/23/16 05:32; Admin Dose 4 MG; Start 11/20/16 at 12:00 Aspirin (Aspirin) 81 mg DAILY PO Last administered on 11/28/16 09:22; Admin Dose 81 MG; Start 11/21/16 at 09:00 Nitroglycerin (Nitroglycerin (Sl Tab) 0.4 Mg) 1 tab Q5M PRN SL CHEST PAIN; Start 11/20/16 at 12:00 Acetaminophen (Tylenol Tab) 650 mg Q6H PRN PO PAIN LEVEL 1-3 OR FEVER; Start at 12:00 Morphine Sulfate (morphine) 2 mg Q4H PRN IV PAIN LEVEL 7-10 Last administered on 11/29/16 04:30; Admin Dose 2 MG; Start 11/20/16 at 12:00 Zolpidem Tartrate (Ambien) 5 mg QHS PRN PO INSOMNIA; Start 11/20/16 at 12:00 Pantoprazole (Protonix Tab) 40 mg DAILY@06 PO Last administered on 11/29/16 05: 26; Admin Dose 40 MG; Start 11/21/16 at 06:00 Miscellaneous Information 1 ea NOTE XX ; Start 11/20/16 at 12:30 Glucose (Glutose) 15 gm Q15M PRN PO DECREASED GLUCOSE; Start 11/20/16 at 12:30 Glucose (Glutose) 22.5 gm Q15M PRN PO DECREASED GLUCOSE; Start 11/20/16 at 12: 30 Dextrose (D50w Syringe) 25 ml Q15M PRN IV DECREASED GLUCOSE; Start 11/20/16 at 12:30 Dextrose (D50w Syringe) 50 ml Q15M PRN IV DECREASED GLUCOSE; Start 11/20/16 at 12:30 Glucagon (Glucagen) 1 mg Q15M PRN IM DECREASED GLUCOSE; Start 11/20/16 at 12:30 Glucose (Glutose) 15 gm Q15M PRN BUCCAL DECREASED GLUCOSE; Start 11/20/16 at 12 :30 Levothyroxine Sodium (Synthroid) 125 mcg DAILY@06 PO Last administered on 05:26; Admin Dose 125 MCG; Start 11/22/16 at 06:00 Guaifenesin (Robitussin Liquid Cup) 100 mg Q6H PRN PO COUGH Last administered on 11/25/16 21:58; Admin Dose 100 MG; Start 11/23/16 at 16:30 IV Flush (NS 10 ml) 10 ml PRN PRN IV IV PROTOCOL; Start 11/24/16 at 15:30 Insulin Glargine (Lantus) 15 unit HS SC Last administered on 11/28/16 22:10; Admin Dose 15 UNIT; Start 11/26/16 at 21:00 Midodrine (Proamatine) 5 mg BID@,17 PRN PO sbp<80 Last administered on 19:48; Admin Dose 5 MG; Start 11/28/16 at 17:00 PARRISH DIEGO MD Nov 29, 2016 06:33
[2016-11-29 06:34] LABS: BASOPHILS % 0.3 % (0.0-2.0); EOSINOPHILS # 0.2 10^3/ul (0.0-0.5); EOSINOPHILS % 3.1 % (0.0-7.0); HEMOGLOBIN 9.8 g/dl (14.0-18.0); LYMPHOCYTES # 0.7 10^3/ul (0.8-2.9); LYMPHOCYTES % 10.4 % (15.0-51.0); MEAN CORPUSCULAR HEMOGLOBIN 29.6 pg (29.0-33.0); MEAN CORPUSCULAR HGB CONC 33.9 g/dl (32.0-37.0); MEAN CORPUSCULAR VOLUME 87.4 fl (82.0-101.0); MEAN PLATELET VOLUME 6.6 fl (7.4-10.4); MONOCYTE # 0.7 10^3/ul (0.3-0.9); MONOCYTES % 10.2 % (0.0-11.0); NEUTROPHIL # 5.2 10^3/ul (1.6-7.5); PLATELET COUNT 184 10^3/UL (140-440); RED BLOOD COUNT 3.32 10^6/ul (4.70-6.10); RED CELL DISTRIBUTION WIDTH 20.2 % (11.5-14.5); UNCORRECTED WBC 6.9 10^3/ul (4.8-10.8); WHITE BLOOD COUNT 6.9 10^3/ul (4.8-10.8)
[2016-11-29 06:46] LABS: CONDITION 1; LH ANALYZER COMMENTS 1
[2016-11-29 06:51] LABS: POTASSIUM 4.4 mmol/L (3.5-5.1)
[2016-11-29 06:54] LABS: CREATININE 6.22 mg/dl (0.61-1.24)
[2016-11-29 06:55] LABS: CALCIUM 7.7 mg/dl (8.4-10.2)
[2016-11-29] MEDS: INSULIN ASPART [NOVOLOG] 3 ML PEN SC SCH ×4 (07:55→20:20)
[2016-11-29] MEDS: LORAZEPAM 0.5 MG TAB PO PRN (09:08)
[2016-11-29] MEDS: ASPIRIN 81 MG TAB PO SCH (09:08)
--- NOTE | 2016-11-29 14:44 | CONS ---
Date/Time of Note Date/Time of Note DATE: 11/29/16 TIME: 14:42 Assessment/Plan Assessment/Plan Additional Assessment/Plan Hypotension, improving AV fistula stenosis status post venoplasty Acute decompensated systolic and diastolic heart failure Cardiomyopathy, likely ischemic and nonischemic in origin with an ejection fraction less than 20%. (Denied cardiac transplant at [facility]) Biventricular pacemaker and ICD Mitral and tricuspid valve regurgitation. Severe pulmonary hypertension. End-stage renal disease on hemodialysis Ascites status post paracentesis -Blood pressure has remained stable. Management changed to when necessary. If patient plan for repeat paracentesis, would give albumin prior. Undergoing evaluation for possible abdominal drain given need of recurrent paracentesis. Consultation Date/Type/Reason Admit Date/Time Nov 20, 2016 at 09:34 Initial Consult Date 11/21/16 Type of Consultation: cv Referring Provider: DEMETRA BRUNO MD 24 HR Interval Summary Free Text/Dictation Denies chest pain, shortness of breath. Complaining of increased abdominal distention Exam/Review of Systems Vital Signs Vitals Vital Signs Date Time Temp Pulse Resp B/P Pulse Ox O2 Delivery O2 Flow Rate FiO2 11/29/16 12:20 103 11/29/16 11:31 97.9 18 84/58 98 11/29/16 05:30 Room Air 11/26/16 01:00 2.0 Intake and Output 11/28/16 11/28/16 11/29/16 15:00 23:00 07:00 Intake Total 480 ml 420 ml 200 ml Balance 480 ml 420 ml 200 ml Exam No apparent distress Constitutional: alert, frail, oriented Head: normocephalic Neck: supple Respiratory: other (course breath sounds bilaterally, no wheezing) Cardiovascular: other (S1 and S2 heard), regular rate and rhythm Gastrointestinal: ascites, bowel sounds, distended, other (no guarding), soft Extremities: edema Results Result Diagram: 11/29/16 0445 11/29/16 0445 Results 24 hrs Laboratory Tests Test 11/28/16 17:00 11/28/16 21:47 11/29/16 04:45 11/29/16 08:42 Bedside Glucose 120 147 97 Anion Gap 19 H Basophils # 0.0 Basophils % 0.3 Blood Morphology Comment Blood Urea Nitrogen 54 H Calcium Level 7.7 L Carbon Dioxide Level 25 Chloride Level 91 L Creatinine 6.22 H Eosinophils # 0.2 Eosinophils % 3.1 Glucose Level 133 Hematocrit 29.0 L Hemoglobin 9.8 L Lymphocytes # 0.7 L Lymphocytes % 10.4 L Mean Corpuscular Hemoglobin 29.6 Mean Corpuscular Hemoglobin Concent 33.9 Mean Corpuscular Volume 87.4 Mean Platelet Volume 6.6 L Monocytes # 0.7 Monocytes % 10.2 Neutrophils # 5.2 Neutrophils % 76.0 Nucleated Red Blood Cells # 0.0 Nucleated Red Blood Cells % 0.0 Platelet Count 184 Potassium Level 4.4 Red Blood Count 3.32 L Red Cell Distribution Width 20.2 H Sodium Level 131 L White Blood Count 6.9 Test 11/29/16 13:00 Bedside Glucose 110 Medications Medications Current Medications Lorazepam (Ativan) 0.5 mg Q8H PRN PO ANXIETY Last administered on 11/29/16 09: 08; Admin Dose 0.5 MG; Start 11/20/16 at 12:00 Ondansetron HCl (Zofran Inj) 4 mg Q6H PRN IV NAUSEA AND/OR VOMITING Last administered on 11/23/16 05:32; Admin Dose 4 MG; Start 11/20/16 at 12:00 Aspirin (Aspirin) 81 mg DAILY PO Last administered on 11/29/16 09:08; Admin Dose 81 MG; Start 11/21/16 at 09:00 Nitroglycerin (Nitroglycerin (Sl Tab) 0.4 Mg) 1 tab Q5M PRN SL CHEST PAIN; Start 11/20/16 at 12:00 Acetaminophen (Tylenol Tab) 650 mg Q6H PRN PO PAIN LEVEL 1-3 OR FEVER; Start at 12:00 Morphine Sulfate (morphine) 2 mg Q4H PRN IV PAIN LEVEL 7-10 Last administered on 11/29/16 14:28; Admin Dose 2 MG; Start 11/20/16 at 12:00 Zolpidem Tartrate (Ambien) 5 mg QHS PRN PO INSOMNIA; Start 11/20/16 at 12:00 Pantoprazole (Protonix Tab) 40 mg DAILY@06 PO Last administered on 11/29/16 05: 26; Admin Dose 40 MG; Start 11/21/16 at 06:00 Miscellaneous Information 1 ea NOTE XX ; Start 11/20/16 at 12:30 Glucose (Glutose) 15 gm Q15M PRN PO DECREASED GLUCOSE; Start 11/20/16 at 12:30 Glucose (Glutose) 22.5 gm Q15M PRN PO DECREASED GLUCOSE; Start 11/20/16 at 12: 30 Dextrose (D50w Syringe) 25 ml Q15M PRN IV DECREASED GLUCOSE; Start 11/20/16 at 12:30 Dextrose (D50w Syringe) 50 ml Q15M PRN IV DECREASED GLUCOSE; Start 11/20/16 at 12:30 Glucagon (Glucagen) 1 mg Q15M PRN IM DECREASED GLUCOSE; Start 11/20/16 at 12:30 Glucose (Glutose) 15 gm Q15M PRN BUCCAL DECREASED GLUCOSE; Start 11/20/16 at 12 :30 Levothyroxine Sodium (Synthroid) 125 mcg DAILY@06 PO Last administered on 05:26; Admin Dose 125 MCG; Start 11/22/16 at 06:00 Guaifenesin (Robitussin Liquid Cup) 100 mg Q6H PRN PO COUGH Last administered on 11/25/16 21:58; Admin Dose 100 MG; Start 11/23/16 at 16:30 IV Flush (NS 10 ml) 10 ml PRN PRN IV IV PROTOCOL; Start 11/24/16 at 15:30 Insulin Glargine (Lantus) 15 unit HS SC Last administered on 11/28/16 22:10; Admin Dose 15 UNIT; Start 11/26/16 at 21:00 Midodrine (Proamatine) 5 mg BID@,17 PRN PO sbp<80 Last administered on 19:48; Admin Dose 5 MG; Start 11/28/16 at 17:00 Harpreet Cee DO Nov 29, 2016 14:43
--- NOTE | 2016-11-29 16:58 | PN ---
Date/Time of Note Date/Time of Note DATE: 11/29/16 TIME: 16:57 Assessment/Plan VTE Prophylaxis VTE Prophylaxis Intervention: SCD's Lines/Catheters IV [facility] PICC Line Central line still needed: Yes Urinary Cath still in place: No Assessment/Plan Chief Complaint/Hosp Course ASSESSMENT AND PLAN: - Severe hypotension requiring pressors, resolved. - Congestive heart failure exacerbation with ejection fraction of 20% per last echo. Continue to remove fluids with hemodialysis. - Ascites, status post paracentesis. - End-stage renal disease, hemodialysis-dependent. Dr. Maddox is following from nephrology standpoint. Continue patient on hemodialysis. - Coronary artery disease status post coronary artery bypass graft. Continue patient on aspirin and Coreg. Dr. Cee is following from cardiology standpoint. - Hypothyroidism. TSH is 14, Synthroid increased to 125. - Diabetes mellitus type 2. Continue to monitor blood sugar with mild algorithm scale, NovoLog coverage. - Hemodialysis access, status post right AV fistulogram by Dr. Loco, vascular surgery on 11/21. - Liver cirrhosis and portal hypertension. Dr. Kirkpatrick is following in gastroenterology consultation. Continue Protonix for peptic ulcer disease prophylaxis. Further recommendations based on clinical course. Plan of care discussed with Dr. Vick. Problems: Subjective 24 Hr Interval Summary Free Text/Dictation Patient was increased bursitis, no fever nausea vomiting. Exam/Review of Systems Vital Signs Vitals Vital Signs Date Time Temp Pulse Resp B/P Pulse Ox O2 Delivery O2 Flow Rate FiO2 11/29/16 15:12 98.0 94 19 126/85 99 11/29/16 05:30 Room Air 11/26/16 01:00 2.0 Intake and Output 11/28/16 11/28/16 11/29/16 15:00 23:00 07:00 Intake Total 480 ml 420 ml 200 ml Balance 480 ml 420 ml 200 ml Exam GENERAL: well-developed, well-nourished male, currently is awake, alert. HEENT: Head is atraumatic, normocephalic. NECK: Supple. JVD is present, no cervical lymphadenopathy. CHEST: Lungs are clear bilaterally, slightly diminished at the bases. CARDIOVASCULAR: Regular rhythm and rate, normal S1, S2. No murmurs, gallops, clicks, rubs noted. The patient has a left chest permanent pacemaker with AICD. GASTROINTESTINAL: Abdomen is protuberant, soft, slightly distended, nontender. Bowel sounds present. No guarding, no rebound tenderness. SKIN: No rash, petechiae. EXTREMITIES: The patient has bilateral lower extremity edema, 3+. NEUROLOGIC: The patient is awake, alert and oriented x3. Results Result Diagram: 11/29/16 0445 11/29/16 0445 Results 24 hrs Laboratory Tests Test 11/28/16 17:00 11/28/16 21:47 11/29/16 04:45 11/29/16 08:42 Bedside Glucose 120 147 97 Anion Gap 19 H Basophils # 0.0 Basophils % 0.3 Blood Morphology Comment Blood Urea Nitrogen 54 H Calcium Level 7.7 L Carbon Dioxide Level 25 Chloride Level 91 L Creatinine 6.22 H Eosinophils # 0.2 Eosinophils % 3.1 Glucose Level 133 Hematocrit 29.0 L Hemoglobin 9.8 L Lymphocytes # 0.7 L Lymphocytes % 10.4 L Mean Corpuscular Hemoglobin 29.6 Mean Corpuscular Hemoglobin Concent 33.9 Mean Corpuscular Volume 87.4 Mean Platelet Volume 6.6 L Monocytes # 0.7 Monocytes % 10.2 Neutrophils # 5.2 Neutrophils % 76.0 Nucleated Red Blood Cells # 0.0 Nucleated Red Blood Cells % 0.0 Platelet Count 184 Potassium Level 4.4 Red Blood Count 3.32 L Red Cell Distribution Width 20.2 H Sodium Level 131 L White Blood Count 6.9 Test 11/29/16 13:00 Bedside Glucose 110 Medications Medications Current Medications Lorazepam (Ativan) 0.5 mg Q8H PRN PO ANXIETY Last administered on 11/29/16 09: 08; Admin Dose 0.5 MG; Start 11/20/16 at 12:00 Ondansetron HCl (Zofran Inj) 4 mg Q6H PRN IV NAUSEA AND/OR VOMITING Last administered on 11/23/16 05:32; Admin Dose 4 MG; Start 11/20/16 at 12:00 Aspirin (Aspirin) 81 mg DAILY PO Last administered on 11/29/16 09:08; Admin Dose 81 MG; Start 11/21/16 at 09:00 Nitroglycerin (Nitroglycerin (Sl Tab) 0.4 Mg) 1 tab Q5M PRN SL CHEST PAIN; Start 11/20/16 at 12:00 Acetaminophen (Tylenol Tab) 650 mg Q6H PRN PO PAIN LEVEL 1-3 OR FEVER; Start at 12:00 Morphine Sulfate (morphine) 2 mg Q4H PRN IV PAIN LEVEL 7-10 Last administered on 11/29/16 14:28; Admin Dose 2 MG; Start 11/20/16 at 12:00 Zolpidem Tartrate (Ambien) 5 mg QHS PRN PO INSOMNIA; Start 11/20/16 at 12:00 Pantoprazole (Protonix Tab) 40 mg DAILY@06 PO Last administered on 11/29/16 05: 26; Admin Dose 40 MG; Start 11/21/16 at 06:00 Miscellaneous Information 1 ea NOTE XX ; Start 11/20/16 at 12:30 Glucose (Glutose) 15 gm Q15M PRN PO DECREASED GLUCOSE; Start 11/20/16 at 12:30 Glucose (Glutose) 22.5 gm Q15M PRN PO DECREASED GLUCOSE; Start 11/20/16 at 12: 30 Dextrose (D50w Syringe) 25 ml Q15M PRN IV DECREASED GLUCOSE; Start 11/20/16 at 12:30 Dextrose (D50w Syringe) 50 ml Q15M PRN IV DECREASED GLUCOSE; Start 11/20/16 at 12:30 Glucagon (Glucagen) 1 mg Q15M PRN IM DECREASED GLUCOSE; Start 11/20/16 at 12:30 Glucose (Glutose) 15 gm Q15M PRN BUCCAL DECREASED GLUCOSE; Start 11/20/16 at 12 :30 Levothyroxine Sodium (Synthroid) 125 mcg DAILY@06 PO Last administered on 05:26; Admin Dose 125 MCG; Start 11/22/16 at 06:00 Guaifenesin (Robitussin Liquid Cup) 100 mg Q6H PRN PO COUGH Last administered on 11/25/16 21:58; Admin Dose 100 MG; Start 11/23/16 at 16:30 IV Flush (NS 10 ml) 10 ml PRN PRN IV IV PROTOCOL; Start 11/24/16 at 15:30 Insulin Glargine (Lantus) 15 unit HS SC Last administered on 11/28/16 22:10; Admin Dose 15 UNIT; Start 11/26/16 at 21:00 Midodrine (Proamatine) 5 mg BID@09,17 PRN PO sbp<80 Last administered on t 19:48; Admin Dose 5 MG; Start 11/28/16 at 17:00 DICKSON GROSSMAN Nov 29, 2016 16:58
--- NOTE | 2016-11-29 17:45 | CONS ---
Date/Time of Note Date/Time of Note DATE: 11/29/16 TIME: 17:44 Assessment/Plan Assessment/Plan Additional Assessment/Plan Additional Assessment/Plan IMPRESSION: 1. Congestive heart failure, status post automatic implantable cardioverter- defibrillator.feels better,no s.o.b,EF of 20% 2. End-stage renal disease on dialysis. 3. Coronary artery disease status post coronary artery bypass graft. 4. Diabetes mellitus. 5. Hypothyroidism. 6. Ascites. 7. Anemia. 8. Mild elevation of alkaline phosphatase. 9. Cirrhosis of liver with portal hypertension. 10. pt.became hypotensive and transferred to ICU for pressor support 11.s/p large volume paracentesis on 11/22/15 12.anemia r/o gi bleeding 13. hypotension PLAN: 1. At this point, is to continue with dialysis and take out more fluid during dialysis. 2. Paracentesis on a need basis under the cover of albumin. 3. Continue all his medication. 4. The patient is not a candidate for TIPS given his renal failure and cardiomyopathy. 5. He has refractory ascites, 6. no paracentesis until BP stabilized 7.Midodrine 8.low sodium diet 9abdominal drain as per radiologist,IR Consultation Date/Type/Reason Admit Date/Time Nov 20, 2016 at 09:34 Initial Consult Date 11/21/16 Type of Consultation: cv Referring Provider: DEMETRA BRUNO MD 24 HR Interval Summary Constitutional: improved Exam/Review of Systems Vital Signs Vitals Vital Signs Date Time Temp Pulse Resp B/P Pulse Ox O2 Delivery O2 Flow Rate FiO2 11/29/16 17:08 97 11/29/16 15:12 98.0 19 126/85 99 11/29/16 05:30 Room Air 11/26/16 01:00 2.0 Intake and Output 11/28/16 11/28/16 11/29/16 15:00 23:00 07:00 Intake Total 480 ml 420 ml 200 ml Balance 480 ml 420 ml 200 ml Exam Constitutional: alert, oriented, well developed Psych: nl mood/affect, no complaints Head: atraumatic, normocephalic Eyes: EOMI, PERRL, nl conjunctiva, nl lids, nl sclera ENMT: nl external ears & nose, nl lips & teeth, nl nasal mucosa & septum Neck: non-tender, supple Respiratory: clear to auscultation, normal air movement Cardiovascular: nl pulses, regular rate and rhythm Gastrointestinal: nl liver, spleen, non-tender, soft Musculoskeletal: nl extremities to inspection, nl gait and stance Extremities: normal pulses 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: DIRECTOR OF STUDENT AID 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, nl mental status, nl speech, nl strength Skin: nl turgor, No rash or lesions Lymph: nl lymph nodes Results Result Diagram: 11/29/1644411/29/16444 Results 24 hrs Laboratory Tests Test 11/28/16 21:47 11/29/16 04:45 11/29/16 08:42 11/29/16 13:00 Bedside Glucose 147 97 110 Anion Gap 19 H Basophils # 0.0 Basophils % 0.3 Blood Morphology Comment Blood Urea Nitrogen 54 H Calcium Level 7.7 L Carbon Dioxide Level 25 Chloride Level 91 L Creatinine 6.22 H Eosinophils # 0.2 Eosinophils % 3.1 Glucose Level 133 Hematocrit 29.0 L Hemoglobin 9.8 L Lymphocytes # 0.7 L Lymphocytes % 10.4 L Mean Corpuscular Hemoglobin 29.6 Mean Corpuscular Hemoglobin Concent 33.9 Mean Corpuscular Volume 87.4 Mean Platelet Volume 6.6 L Monocytes # 0.7 Monocytes % 10.2 Neutrophils # 5.2 Neutrophils % 76.0 Nucleated Red Blood Cells # 0.0 Nucleated Red Blood Cells % 0.0 Platelet Count 184 Potassium Level 4.4 Red Blood Count 3.32 L Red Cell Distribution Width 20.2 H Sodium Level 131 L White Blood Count 6.9 Medications Medications Current Medications Lorazepam (Ativan) 0.5 mg Q8H PRN PO ANXIETY Last administered on 11/29/16 09: 08; Admin Dose 0.5 MG; Start 11/20/16 at 12:00 Ondansetron HCl (Zofran Inj) 4 mg Q6H PRN IV NAUSEA AND/OR VOMITING Last administered on 11/23/16 05:32; Admin Dose 4 MG; Start 11/20/16 at 12:00 Aspirin (Aspirin) 81 mg DAILY PO Last administered on 11/29/16 09:08; Admin Dose 81 MG; Start 11/21/16 at 09:00 Nitroglycerin (Nitroglycerin (Sl Tab) 0.4 Mg) 1 tab Q5M PRN SL CHEST PAIN; Start 11/20/16 at 12:00 Acetaminophen (Tylenol Tab) 650 mg Q6H PRN PO PAIN LEVEL 1-3 OR FEVER; Start at 12:00 Morphine Sulfate (morphine) 2 mg Q4H PRN IV PAIN LEVEL 7-10 Last administered on 11/29/16 14:28; Admin Dose 2 MG; Start 11/20/16 at 12:00 Zolpidem Tartrate (Ambien) 5 mg QHS PRN PO INSOMNIA; Start 11/20/16 at 12:00 Pantoprazole (Protonix Tab) 40 mg DAILY@06 PO Last administered on 11/29/16 05: 26; Admin Dose 40 MG; Start 11/21/16 at 06:00 Miscellaneous Information 1 ea NOTE XX ; Start 11/20/16 at 12:30 Glucose (Glutose) 15 gm Q15M PRN PO DECREASED GLUCOSE; Start 11/20/16 at 12:30 Glucose (Glutose) 22.5 gm Q15M PRN PO DECREASED GLUCOSE; Start 11/20/16 at 12: 30 Dextrose (D50w Syringe) 25 ml Q15M PRN IV DECREASED GLUCOSE; Start 11/20/16 at 12:30 Dextrose (D50w Syringe) 50 ml Q15M PRN IV DECREASED GLUCOSE; Start 11/20/16 at 12:30 Glucagon (Glucagen) 1 mg Q15M PRN IM DECREASED GLUCOSE; Start 11/20/16 at 12:30 Glucose (Glutose) 15 gm Q15M PRN BUCCAL DECREASED GLUCOSE; Start 11/20/16 at 12 :30 Levothyroxine Sodium (Synthroid) 125 mcg DAILY@06 PO Last administered on 05:26; Admin Dose 125 MCG; Start 11/22/16 at 06:00 Guaifenesin (Robitussin Liquid Cup) 100 mg Q6H PRN PO COUGH Last administered on 11/25/16 21:58; Admin Dose 100 MG; Start 11/23/16 at 16:30 IV Flush (NS 10 ml) 10 ml PRN PRN IV IV PROTOCOL; Start 11/24/16 at 15:30 Insulin Glargine (Lantus) 15 unit HS SC Last administered on 11/28/16 22:10; Admin Dose 15 UNIT; Start 11/26/16 at 21:00 Midodrine (Proamatine) 5 mg BID@ PRN PO sbp<80 Last administered on t 19:48; Admin Dose 5 MG; Start 11/28/16 at 17:00 LOR MASON MD Nov 29, 2016 17:45
[2016-11-29] MEDS: INSULIN GLARGINE [LANtus] 3 ML PEN SC SCH (20:25)
[2016-11-30] VITALS (11 sets, daily range): BP systolic 83–115; BP diastolic 38–80; PULSE 108–122; RESP 16–18
[2016-11-30] MEDS: morphine 2 MG INJ IV PRN ×6 (00:43→21:26)
[2016-11-30] MEDS: LORAZEPAM 0.5 MG TAB PO PRN ×2 (03:56→13:39)
[2016-11-30] MEDS: LEVOTHYROXINE 125 MCG TAB PO SCH (05:10)
[2016-11-30] MEDS: PANTOPRAZOLE (EC) 40 MG TAB PO SCH (05:10)
[2016-11-30 07:10] LABS: BASOPHILS % 0.4 % (0.0-2.0); EOSINOPHILS # 0.2 10^3/ul (0.0-0.5); EOSINOPHILS % 2.9 % (0.0-7.0); HEMATOCRIT 28.9 % (42.0-52.0); HEMOGLOBIN 9.7 g/dl (14.0-18.0); LYMPHOCYTES # 0.7 10^3/ul (0.8-2.9); LYMPHOCYTES % 10.2 % (15.0-51.0); MEAN CORPUSCULAR HEMOGLOBIN 29.7 pg (29.0-33.0); MEAN CORPUSCULAR HGB CONC 33.5 g/dl (32.0-37.0); MEAN CORPUSCULAR VOLUME 88.6 fl (82.0-101.0); MEAN PLATELET VOLUME 6.3 fl (7.4-10.4); MONOCYTE # 0.8 10^3/ul (0.3-0.9); MONOCYTES % 10.9 % (0.0-11.0); NEUTROPHIL # 5.5 10^3/ul (1.6-7.5); NEUTROPHILS % 75.6 % (39.0-77.0); PLATELET COUNT 182 10^3/UL (140-440); RED BLOOD COUNT 3.27 10^6/ul (4.70-6.10); RED CELL DISTRIBUTION WIDTH 20.3 % (11.5-14.5); UNCORRECTED WBC 7.2 10^3/ul (4.8-10.8); WHITE BLOOD COUNT 7.2 10^3/ul (4.8-10.8)
[2016-11-30 07:23] LABS: CONDITION 1; LH ANALYZER COMMENTS 1
[2016-11-30 07:32] LABS: POTASSIUM 4.1 mmol/L (3.5-5.1)
[2016-11-30 07:34] LABS: CREATININE 4.28 mg/dl (0.61-1.24)
[2016-11-30] MEDS: INSULIN ASPART [NOVOLOG] 3 ML PEN SC SCH ×4 (07:55→21:00)
[2016-11-30] MEDS: ASPIRIN 81 MG TAB PO SCH (08:44)
--- NOTE | 2016-11-30 09:14 | PN ---
Date/Time of Note Date/Time of Note DATE: 11/30/16 TIME: 09:11 Assessment/Plan VTE Prophylaxis VTE Prophylaxis Intervention: other Lines/Catheters IV C[facility]ter Type (from [facility]): PICC Line Central line still needed: Yes Urinary Cath still in place: No Assessment/Plan Assessment/Plan - Severe hypotension requiring pressors, resolved. - Congestive heart failure exacerbation with ejection fraction of 20% per last echo. Continue to remove fluids with hemodialysis. - Ascites, status post paracentesis. - End-stage renal disease, hemodialysis-dependent. - Dr. Maddox is following from nephrology standpoint. Continue patient on hemodialysis. - Coronary artery disease status post coronary artery bypass graft. Continue patient on aspirin and Coreg. - per Dr. Cee in cardiology - Hypothyroidism. TSH is 14, Synthroid increased to 125. - Diabetes mellitus type 2. - Continue to monitor blood sugar with mild algorithm scale, NovoLog coverage. - Hemodialysis access, status post right AV fistulogram by Dr. Loco, vascular surgery on 11/21. - Liver cirrhosis and portal hypertension. Dr. Kirkpatrick is following in gastroenterology consultation. - Anemia- monitor H/H Continue Protonix for peptic ulcer disease prophylaxis. Further recommendations based on clinical course. Plan of care discussed with Dr. Vick. Subjective 24 Hr Interval Summary Free Text/Dictation Lying in bed, c/o abdominal distention sec to ascites, dw staff Eyes: no complaints ENT: no complaints Respiratory: no complaints Cardiovascular: no complaints Gastrointestinal: other (distention ) Genitourinary: no complaints Musculoskeletal: no complaints Skin: no complaints Neurologic: no complaints Endocrine: no complaints Lymphatic: no complaints Exam/Review of Systems Vital Signs Vitals Vital Signs Date Time Temp Pulse Resp B/P Pulse Ox O2 Delivery O2 Flow Rate FiO2 11/30/16 07:04 98.4 100 18 106/56 100 11/29/16 05:30 Room Air Intake and Output 11/29/16 11/29/16 11/30/16 15:00 23:00 07:00 Intake Total 600 ml 650 ml Output Total 3000 ml Balance 600 ml -2350 ml Exam Constitutional: alert, oriented Psych: no complaints Head: atraumatic Eyes: EOMI, PERRL, nl sclera ENMT: nl external ears & nose Neck: non-tender Respiratory: clear to auscultation Cardiovascular: nl pulses Gastrointestinal: ascites, distended Musculoskeletal: nl extremities to inspection Extremities: normal pulses 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: nl mental status, nl speech Results Result Diagram: 11/30/1615 11/30/16 0615 Results 24 hrs Laboratory Tests Test 11/29/16 13:00 11/29/16 18:03 11/29/16 20:19 11/30/16 06:15 Bedside Glucose 110 181 125 Anion Gap 19 H Basophils # 0.0 Basophils % 0.4 Blood Morphology Comment Blood Urea Nitrogen 35 #H Calcium Level 8.0 L Carbon Dioxide Level 25 Chloride Level 96 L Creatinine 4.28 #H Eosinophils # 0.2 Eosinophils % 2.9 Glucose Level 87 # Hematocrit 28.9 L Hemoglobin 9.7 L Lymphocytes # 0.7 L Lymphocytes % 10.2 L Mean Corpuscular Hemoglobin 29.7 Mean Corpuscular Hemoglobin Concent 33.5 Mean Corpuscular Volume 88.6 Mean Platelet Volume 6.3 L Monocytes # 0.8 Monocytes % 10.9 Neutrophils # 5.5 Neutrophils % 75.6 Nucleated Red Blood Cells # 0.0 Nucleated Red Blood Cells % 0.0 Platelet Count 182 Potassium Level 4.1 Red Blood Count 3.27 L Red Cell Distribution Width 20.3 H Sodium Level 136 White Blood Count 7.2 Test 11/30/16 08:33 Bedside Glucose 81 Medications Medications Current Medications Lorazepam (Ativan) 0.5 mg Q8H PRN PO ANXIETY Last administered on 11/30/16 03: 56; Admin Dose 0.5 MG; Start 11/20/16 at 12:00 Ondansetron HCl (Zofran Inj) 4 mg Q6H PRN IV NAUSEA AND/OR VOMITING Last administered on 11/23/16 05:32; Admin Dose 4 MG; Start 11/20/16 at 12:00 Aspirin (Aspirin) 81 mg DAILY PO Last administered on 11/30/16 08:44; Admin Dose 81 MG; Start 11/21/16 at 09:00 Nitroglycerin (Nitroglycerin (Sl Tab) 0.4 Mg) 1 tab Q5M PRN SL CHEST PAIN; Start 11/20/16 at 12:00 Acetaminophen (Tylenol Tab) 650 mg Q6H PRN PO PAIN LEVEL 1-3 OR FEVER; Start at 12:00 Morphine Sulfate (morphine) 2 mg Q4H PRN IV PAIN LEVEL 7-10 Last administered on 11/30/16 08:44; Admin Dose 2 MG; Start 11/20/16 at 12:00 Zolpidem Tartrate (Ambien) 5 mg QHS PRN PO INSOMNIA; Start 11/20/16 at 12:00 Pantoprazole (Protonix Tab) 40 mg DAILY@06 PO Last administered on 11/30/16 05: 10; Admin Dose 40 MG; Start 11/21/16 at 06:00 Miscellaneous Information 1 ea NOTE XX ; Start 11/20/16 at 12:30 Glucose (Glutose) 15 gm Q15M PRN PO DECREASED GLUCOSE; Start 11/20/16 at 12:30 Glucose (Glutose) 22.5 gm Q15M PRN PO DECREASED GLUCOSE; Start 11/20/16 at 12: 30 Dextrose (D50w Syringe) 25 ml Q15M PRN IV DECREASED GLUCOSE; Start 11/20/16 at 12:30 Dextrose (D50w Syringe) 50 ml Q15M PRN IV DECREASED GLUCOSE; Start 11/20/16 at 12:30 Glucagon (Glucagen) 1 mg Q15M PRN IM DECREASED GLUCOSE; Start 11/20/16 at 12:30 Glucose (Glutose) 15 gm Q15M PRN BUCCAL DECREASED GLUCOSE; Start 11/20/16 at 12 :30 Levothyroxine Sodium (Synthroid) 125 mcg DAILY@06 PO Last administered on 05:10; Admin Dose 125 MCG; Start 11/22/16 at 06:00 Guaifenesin (Robitussin Liquid Cup) 100 mg Q6H PRN PO COUGH Last administered on 11/25/16 21:58; Admin Dose 100 MG; Start 11/23/16 at 16:30 IV Flush (NS 10 ml) 10 ml PRN PRN IV IV PROTOCOL; Start 11/24/16 at 15:30 Insulin Glargine (Lantus) 15 unit HS SC Last administered on 11/29/16 20:25; Admin Dose 15 UNIT; Start 11/26/16 at 21:00 Midodrine (Proamatine) 5 mg BID@,17 PRN PO sbp<80 Last administered on 19:48; Admin Dose 5 MG; Start 11/28/16 at 17:00 PEBBLES REYES Nov 30, 2016 09:14
--- NOTE | 2016-11-30 13:17 | PQ ---
Date/Time of Note Date/Time of Note DATE: 11/30/16 TIME: 13:11 Physician Query Documentation Clarification Dear Dr. Cee, A review of the medical record found a need for documentation clarification. 11/23- progress note "Severe hypotension requiring IV pressor" - Norepinephrine BP = 48/37 -Patient with severe hypotension after paracentesis. Started on IV pressor, given albumin Please clarify/specify a diagnosis being treated. To facilitate accurate and complete coding, please danita ( x ) the suspected diagnosis that apply: ( ) Hypotension without shock ( ) Shock, unspecified ( ICD10 R57.9 ) ( ) Cardiogenic shock ( ICD10 R57.0 ) ( x ) Hypovolemic shock ( ICD10 R57.1 ) ( ) Hypotension secondary to medication ( ICD10 I95.3 ) ( ) Others Please provide your response by clicking edit document, making your choice ( x ), click ok/save and finally click sign. You may also document your response on your progress notes. Thank you for your time. Dale Torre RN, BSN, CCS, CCDS Clinical Cash Application Representative Health Information Management, CDI and Coding Services [phone] Room # [address]~ [address] DALE TORRE Nov 30, 2016 13:17 Harpreet Cee DO Dec 04, 2016 21:48
--- NOTE | 2016-11-30 14:09 | CONS ---
Date/Time of Note Date/Time of Note DATE: 11/30/16 TIME: 14:07 Assessment/Plan Assessment/Plan Additional Assessment/Plan Hypotension, improving AV fistula stenosis status post venoplasty Acute decompensated systolic and diastolic heart failure Cardiomyopathy, likely ischemic and nonischemic in origin with an ejection fraction less than 20%. (Denied cardiac transplant at [facility]) Biventricular pacemaker and ICD Mitral and tricuspid valve regurgitation. Severe pulmonary hypertension. End-stage renal disease on hemodialysis Ascites status post paracentesis -Blood pressure trend has remained stable. Midodrine when necessary. If patient plan for repeat paracentesis, would give albumin prior. Undergoing evaluation for possible abdominal drain given need of recurrent paracentesis. Consultation Date/Type/Reason Admit Date/Time Nov 20, 2016 at 09:34 Initial Consult Date 11/21/16 Type of Consultation: cv Referring Provider: DEMETRA BRUNO MD 24 HR Interval Summary Free Text/Dictation Denies shortness of breath while sitting in bed, denies chest pain or dizziness Exam/Review of Systems Vital Signs Vitals Vital Signs Date Time Temp Pulse Resp B/P Pulse Ox O2 Delivery O2 Flow Rate FiO2 11/30/16 12:13 121 11/30/16 11:05 98.2 18 115/80 94 11/29/16 05:30 Room Air Intake and Output 11/29/16 11/29/16 11/30/16 15:00 23:00 07:00 Intake Total 600 ml 650 ml Output Total 3000 ml Balance 600 ml -2350 ml Exam No apparent distress Constitutional: alert, frail, oriented Head: normocephalic Neck: supple Respiratory: other (Coarse breath sounds bilaterally, no wheezing) Cardiovascular: other (S1-S2 heard), regular rate and rhythm Gastrointestinal: ascites, bowel sounds, distended, soft Extremities: edema Results Result Diagram: 11/30/16 0615 11/30/16 0615 Results 24 hrs Laboratory Tests Test 11/29/16 18:03 11/29/16 20:19 11/30/16 06:15 11/30/16 08:33 Bedside Glucose 181 125 81 Anion Gap 19 H Basophils # 0.0 Basophils % 0.4 Blood Morphology Comment Blood Urea Nitrogen 35 #H Calcium Level 8.0 L Carbon Dioxide Level 25 Chloride Level 96 L Creatinine 4.28 #H Eosinophils # 0.2 Eosinophils % 2.9 Glucose Level 87 # Hematocrit 28.9 L Hemoglobin 9.7 L Lymphocytes # 0.7 L Lymphocytes % 10.2 L Mean Corpuscular Hemoglobin 29.7 Mean Corpuscular Hemoglobin Concent 33.5 Mean Corpuscular Volume 88.6 Mean Platelet Volume 6.3 L Monocytes # 0.8 Monocytes % 10.9 Neutrophils # 5.5 Neutrophils % 75.6 Nucleated Red Blood Cells # 0.0 Nucleated Red Blood Cells % 0.0 Platelet Count 182 Potassium Level 4.1 Red Blood Count 3.27 L Red Cell Distribution Width 20.3 H Sodium Level 136 White Blood Count 7.2 Test 11/30/16 12:08 Bedside Glucose 152 Medications Medications Current Medications Lorazepam (Ativan) 0.5 mg Q8H PRN PO ANXIETY Last administered on 11/30/16 13: 39; Admin Dose 0.5 MG; Start 11/20/16 at 12:00 Ondansetron HCl (Zofran Inj) 4 mg Q6H PRN IV NAUSEA AND/OR VOMITING Last administered on 11/23/16 05:32; Admin Dose 4 MG; Start 11/20/16 at 12:00 Aspirin (Aspirin) 81 mg DAILY PO Last administered on 11/30/16 08:44; Admin Dose 81 MG; Start 11/21/16 at 09:00 Nitroglycerin (Nitroglycerin (Sl Tab) 0.4 Mg) 1 tab Q5M PRN SL CHEST PAIN; Start 11/20/16 at 12:00 Acetaminophen (Tylenol Tab) 650 mg Q6H PRN PO PAIN LEVEL 1-3 OR FEVER; Start at 12:00 Morphine Sulfate (morphine) 2 mg Q4H PRN IV PAIN LEVEL 7-10 Last administered on 11/30/16 13:40; Admin Dose 2 MG; Start 11/20/16 at 12:00 Zolpidem Tartrate (Ambien) 5 mg QHS PRN PO INSOMNIA; Start 11/20/16 at 12:00 Pantoprazole (Protonix Tab) 40 mg DAILY@06 PO Last administered on 11/30/16 05: 10; Admin Dose 40 MG; Start 11/21/16 at 06:00 Miscellaneous Information 1 ea NOTE XX ; Start 11/20/16 at 12:30 Glucose (Glutose) 15 gm Q15M PRN PO DECREASED GLUCOSE; Start 11/20/16 at 12:30 Glucose (Glutose) 22.5 gm Q15M PRN PO DECREASED GLUCOSE; Start 11/20/16 at 12: 30 Dextrose (D50w Syringe) 25 ml Q15M PRN IV DECREASED GLUCOSE; Start 11/20/16 at 12:30 Dextrose (D50w Syringe) 50 ml Q15M PRN IV DECREASED GLUCOSE; Start 11/20/16 at 12:30 Glucagon (Glucagen) 1 mg Q15M PRN IM DECREASED GLUCOSE; Start 11/20/16 at 12:30 Glucose (Glutose) 15 gm Q15M PRN BUCCAL DECREASED GLUCOSE; Start 11/20/16 at 12 :30 Levothyroxine Sodium (Synthroid) 125 mcg DAILY@06 PO Last administered on 05:10; Admin Dose 125 MCG; Start 11/22/16 at 06:00 Guaifenesin (Robitussin Liquid Cup) 100 mg Q6H PRN PO COUGH Last administered on 11/25/16 21:58; Admin Dose 100 MG; Start 11/23/16 at 16:30 IV Flush (NS 10 ml) 10 ml PRN PRN IV IV PROTOCOL; Start 11/24/16 at 15:30 Insulin Glargine (Lantus) 15 unit HS SC Last administered on 11/29/16 20:25; Admin Dose 15 UNIT; Start 11/26/16 at 21:00 Midodrine (Proamatine) 5 mg BID@ PRN PO sbp<80 Last administered on 19:48; Admin Dose 5 MG; Start 11/28/16 at 17:00 Harpreet Cee DO Nov 30, 2016 14:09
--- NOTE | 2016-11-30 19:29 | CONS ---
Date/Time of Note Date/Time of Note DATE: 11/30/16 TIME: 19:29 Assessment/Plan Assessment/Plan Additional Assessment/Plan Assessment/Plan Additional Assessment/Plan Additional Assessment/Plan IMPRESSION: 1. Congestive heart failure, status post automatic implantable cardioverter- defibrillator.feels better,no s.o.b,EF of 20% 2. End-stage renal disease on dialysis. 3. Coronary artery disease status post coronary artery bypass graft. 4. Diabetes mellitus. 5. Hypothyroidism. 6. Ascites. 7. Anemia. 8. Mild elevation of alkaline phosphatase. 9. Cirrhosis of liver with portal hypertension. 10. pt.became hypotensive and transferred to ICU for pressor support 11.s/p large volume paracentesis on 11/22/15 12.anemia r/o gi bleeding 13. hypotension PLAN: 1. At this point, is to continue with dialysis and take out more fluid during dialysis. 2. Paracentesis on a need basis under the cover of albumin. 3. Continue all his medication. 4. The patient is not a candidate for TIPS given his renal failure and cardiomyopathy. 5. He has refractory ascites, 6. no paracentesis until BP stabilized 7.Midodrine 8.low sodium diet 9abdominal drain as per radiologist,IR,discussed with IR Consultation Date/Type/Reason Admit Date/Time Nov 20, 2016 at 09:34 Initial Consult Date 11/21/16 Type of Consultation: cv Referring Provider: DEMETRA BRUNO MD 24 HR Interval Summary Constitutional: improved Exam/Review of Systems Vital Signs Vitals Vital Signs Date Time Temp Pulse Resp B/P Pulse Ox O2 Delivery O2 Flow Rate FiO2 11/30/16 16:18 122 11/30/16 15:19 97.9 18 99/59 97 11/29/16 05:30 Room Air Intake and Output 11/29/16 11/29/16 11/30/16 15:00 23:00 07:00 Intake Total 600 ml 650 ml Output Total 3000 ml Balance 600 ml -2350 ml Exam Constitutional: alert, oriented, well developed Psych: nl mood/affect, no complaints Head: atraumatic, normocephalic Eyes: EOMI, PERRL, nl conjunctiva, nl lids, nl sclera ENMT: nl external ears & nose, nl lips & teeth, nl nasal mucosa & septum Neck: non-tender, supple Respiratory: clear to auscultation, normal air movement Cardiovascular: nl pulses, regular rate and rhythm Gastrointestinal: nl liver, spleen, non-tender, soft Musculoskeletal: nl extremities to inspection, nl gait and stance Extremities: normal pulses 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: LOCKSTITCH WAISTLINE JOINER 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, nl mental status, nl speech, nl strength Skin: nl turgor, No rash or lesions Lymph: nl lymph nodes Results Result Diagram: 11/30/1615 11/30/1615 Results 24 hrs Laboratory Tests Test 11/29/16 20:19 11/30/16 06:15 11/30/16 08:33 11/30/16 12:08 Bedside Glucose 125 81 152 Anion Gap 19 H Basophils # 0.0 Basophils % 0.4 Blood Morphology Comment Blood Urea Nitrogen 35 #H Calcium Level 8.0 L Carbon Dioxide Level 25 Chloride Level 96 L Creatinine 4.28 #H Eosinophils # 0.2 Eosinophils % 2.9 Glucose Level 87 # Hematocrit 28.9 L Hemoglobin 9.7 L Lymphocytes # 0.7 L Lymphocytes % 10.2 L Mean Corpuscular Hemoglobin 29.7 Mean Corpuscular Hemoglobin Concent 33.5 Mean Corpuscular Volume 88.6 Mean Platelet Volume 6.3 L Monocytes # 0.8 Monocytes % 10.9 Neutrophils # 5.5 Neutrophils % 75.6 Nucleated Red Blood Cells # 0.0 Nucleated Red Blood Cells % 0.0 Platelet Count 182 Potassium Level 4.1 Red Blood Count 3.27 L Red Cell Distribution Width 20.3 H Sodium Level 136 White Blood Count 7.2 Medications Medications Current Medications Lorazepam (Ativan) 0.5 mg Q8H PRN PO ANXIETY Last administered on 11/30/16 13: 39; Admin Dose 0.5 MG; Start 11/20/16 at 12:00 Ondansetron HCl (Zofran Inj) 4 mg Q6H PRN IV NAUSEA AND/OR VOMITING Last administered on 11/23/16 05:32; Admin Dose 4 MG; Start 11/20/16 at 12:00 Aspirin (Aspirin) 81 mg DAILY PO Last administered on 11/30/16 08:44; Admin Dose 81 MG; Start 11/21/16 at 09:00 Nitroglycerin (Nitroglycerin (Sl Tab) 0.4 Mg) 1 tab Q5M PRN SL CHEST PAIN; Start 11/20/16 at 12:00 Acetaminophen (Tylenol Tab) 650 mg Q6H PRN PO PAIN LEVEL 1-3 OR FEVER; Start at 12:00 Morphine Sulfate (morphine) 2 mg Q4H PRN IV PAIN LEVEL 7-10 Last administered on 11/30/16 17:21; Admin Dose 2 MG; Start 11/20/16 at 12:00 Zolpidem Tartrate (Ambien) 5 mg QHS PRN PO INSOMNIA; Start 11/20/16 at 12:00 Pantoprazole (Protonix Tab) 40 mg DAILY@06 PO Last administered on 11/30/16 05: 10; Admin Dose 40 MG; Start 11/21/16 at 06:00 Miscellaneous Information 1 ea NOTE XX ; Start 11/20/16 at 12:30 Glucose (Glutose) 15 gm Q15M PRN PO DECREASED GLUCOSE; Start 11/20/16 at 12:30 Glucose (Glutose) 22.5 gm Q15M PRN PO DECREASED GLUCOSE; Start 11/20/16 at 12: 30 Dextrose (D50w Syringe) 25 ml Q15M PRN IV DECREASED GLUCOSE; Start 11/20/16 at 12:30 Dextrose (D50w Syringe) 50 ml Q15M PRN IV DECREASED GLUCOSE; Start 11/20/16 at 12:30 Glucagon (Glucagen) 1 mg Q15M PRN IM DECREASED GLUCOSE; Start 11/20/16 at 12:30 Glucose (Glutose) 15 gm Q15M PRN BUCCAL DECREASED GLUCOSE; Start 11/20/16 at 12 :30 Levothyroxine Sodium (Synthroid) 125 mcg DAILY@06 PO Last administered on 05:10; Admin Dose 125 MCG; Start 11/22/16 at 06:00 Guaifenesin (Robitussin Liquid Cup) 100 mg Q6H PRN PO COUGH Last administered on 11/25/16 21:58; Admin Dose 100 MG; Start 11/23/16 at 16:30 IV Flush (NS 10 ml) 10 ml PRN PRN IV IV PROTOCOL; Start 11/24/16 at 15:30 Insulin Glargine (Lantus) 15 unit HS SC Last administered on 11/29/16 20:25; Admin Dose 15 UNIT; Start 11/26/16 at 21:00 Midodrine (Proamatine) 5 mg BID@ PRN PO sbp<80 Last administered on t 19:48; Admin Dose 5 MG; Start 11/28/16 at 17:00 LOR MASON MD Nov 30, 2016 19:29
[2016-11-30] MEDS: INSULIN GLARGINE [LANtus] 3 ML PEN SC SCH (21:25)
--- NOTE | 2016-11-30 22:10 | CONS ---
Date/Time of Note Date/Time of Note DATE: 11/30/16 TIME: 22:10 Assessment/Plan Assessment/Plan Chief Complaint/Hosp Course Next HD in AM Problems: Additional Assessment/Plan Pt to continue HD per schedule gist under direction of GIPending rpt Paracentasis by radiolof Consultation Date/Type/Reason Admit Date/Time Nov 20, 2016 at 09:34 Initial Consult Date 11/21/16 Type of Consultation: renal Referring Provider: DEMETRA BRUNO MD 24 HR Interval Summary Free Text/Dictation Pt is resting comfortably in bed Subjective hx not possible: other (speaks Bolivian) Constitutional: improved Exam/Review of Systems Vital Signs Vitals Vital Signs Date Time Temp Pulse Resp B/P Pulse Ox O2 Delivery O2 Flow Rate FiO2 11/30/16 20:59 119 11/30/16 19:52 97.5 16 106/68 94 11/29/16 05:30 Room Air Intake and Output 11/29/16 11/29/16 11/30/16 15:00 23:00 07:00 Intake Total 600 ml 650 ml Output Total 3000 ml Balance 600 ml -2350 ml Exam Constitutional: alert, oriented, well developed Psych: nl mood/affect, no complaints Head: atraumatic, normocephalic Eyes: EOMI, PERRL, nl conjunctiva, nl lids, nl sclera ENMT: nl external ears & nose, nl lips & teeth, nl nasal mucosa & septum Neck: non-tender, supple Respiratory: clear to auscultation, normal air movement Cardiovascular: nl pulses, regular rate and rhythm Gastrointestinal: ascites (Pt remains difficult prob with intractable ascites) Musculoskeletal: nl extremities to inspection, nl gait and stance Extremities: other (AVV Fistula lt arm) 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, nl mental status, nl speech, nl strength Skin: nl turgor, No rash or lesions Additional Comments Hct, Chemistry stable Results Result Diagram: 11/30/16 0615 11/30/16 0615 Results 24 hrs Laboratory Tests Test 11/30/16 06:15 11/30/16 08:33 11/30/16 12:08 11/30/16 21:22 Anion Gap 19 H Basophils # 0.0 Basophils % 0.4 Blood Morphology Comment Blood Urea Nitrogen 35 #H Calcium Level 8.0 L Carbon Dioxide Level 25 Chloride Level 96 L Creatinine 4.28 #H Eosinophils # 0.2 Eosinophils % 2.9 Glucose Level 87 # Hematocrit 28.9 L Hemoglobin 9.7 L Lymphocytes # 0.7 L Lymphocytes % 10.2 L Mean Corpuscular Hemoglobin 29.7 Mean Corpuscular Hemoglobin Concent 33.5 Mean Corpuscular Volume 88.6 Mean Platelet Volume 6.3 L Monocytes # 0.8 Monocytes % 10.9 Neutrophils # 5.5 Neutrophils % 75.6 Nucleated Red Blood Cells # 0.0 Nucleated Red Blood Cells % 0.0 Platelet Count 182 Potassium Level 4.1 Red Blood Count 3.27 L Red Cell Distribution Width 20.3 H Sodium Level 136 White Blood Count 7.2 Bedside Glucose 81 152 164 Medications Medications Current Medications Lorazepam (Ativan) 0.5 mg Q8H PRN PO ANXIETY Last administered on 11/30/16 13: 39; Admin Dose 0.5 MG; Start 11/20/16 at 12:00 Ondansetron HCl (Zofran Inj) 4 mg Q6H PRN IV NAUSEA AND/OR VOMITING Last administered on 11/23/16 05:32; Admin Dose 4 MG; Start 11/20/16 at 12:00 Aspirin (Aspirin) 81 mg DAILY PO Last administered on 11/30/16 08:44; Admin Dose 81 MG; Start 11/21/16 at 09:00 Nitroglycerin (Nitroglycerin (Sl Tab) 0.4 Mg) 1 tab Q5M PRN SL CHEST PAIN; Start 11/20/16 at 12:00 Acetaminophen (Tylenol Tab) 650 mg Q6H PRN PO PAIN LEVEL 1-3 OR FEVER; Start at 12:00 Morphine Sulfate (morphine) 2 mg Q4H PRN IV PAIN LEVEL 7-10 Last administered on 11/30/16 21:26; Admin Dose 2 MG; Start 11/20/16 at 12:00 Zolpidem Tartrate (Ambien) 5 mg QHS PRN PO INSOMNIA; Start 11/20/16 at 12:00 Pantoprazole (Protonix Tab) 40 mg DAILY@06 PO Last administered on 11/30/16 05: 10; Admin Dose 40 MG; Start 11/21/16 at 06:00 Miscellaneous Information 1 ea NOTE XX ; Start 11/20/16 at 12:30 Glucose (Glutose) 15 gm Q15M PRN PO DECREASED GLUCOSE; Start 11/20/16 at 12:30 Glucose (Glutose) 22.5 gm Q15M PRN PO DECREASED GLUCOSE; Start 11/20/16 at 12: 30 Dextrose (D50w Syringe) 25 ml Q15M PRN IV DECREASED GLUCOSE; Start 11/20/16 at 12:30 Dextrose (D50w Syringe) 50 ml Q15M PRN IV DECREASED GLUCOSE; Start 11/20/16 at 12:30 Glucagon (Glucagen) 1 mg Q15M PRN IM DECREASED GLUCOSE; Start 11/20/16 at 12:30 Glucose (Glutose) 15 gm Q15M PRN BUCCAL DECREASED GLUCOSE; Start 11/20/16 at 12 :30 Levothyroxine Sodium (Synthroid) 125 mcg DAILY@06 PO Last administered on 05:10; Admin Dose 125 MCG; Start 11/22/16 at 06:00 Guaifenesin (Robitussin Liquid Cup) 100 mg Q6H PRN PO COUGH Last administered on 11/25/16 21:58; Admin Dose 100 MG; Start 11/23/16 at 16:30 IV Flush (NS 10 ml) 10 ml PRN PRN IV IV PROTOCOL; Start 11/24/16 at 15:30 Insulin Glargine (Lantus) 15 unit HS SC Last administered on 11/30/16 21:25; Admin Dose 15 UNIT; Start 11/26/16 at 21:00 Midodrine (Proamatine) 5 mg BID@,17 PRN PO sbp<80 Last administered on 19:48; Admin Dose 5 MG; Start 11/28/16 at 17:00 MILADY ANDERSON MD Nov 30, 2016 22:10
[2016-12-01] VITALS (18 sets, daily range): BP systolic 95–148; BP diastolic 49–72; PULSE 92–112; RESP 16–20
[2016-12-01] MEDS: LEVOTHYROXINE 125 MCG TAB PO SCH (05:48)
[2016-12-01] MEDS: PANTOPRAZOLE (EC) 40 MG TAB PO SCH (05:48)
[2016-12-01] MEDS: morphine 2 MG INJ IV PRN ×3 (06:04→21:20)
[2016-12-01 06:18] LABS: ADD SCAN DIFF NO
[2016-12-01 06:30] LABS: BASOPHIL # 0.1 10^3/ul (0.0-0.1); BASOPHILS % 0.6 % (0.0-2.0); EOSINOPHILS # 0.2 10^3/ul (0.0-0.5); EOSINOPHILS % 2.5 % (0.0-7.0); HEMATOCRIT 29.6 % (42.0-52.0); HEMOGLOBIN 9.5 g/dl (14.0-18.0); LYMPHOCYTES # 0.9 10^3/ul (0.8-2.9); LYMPHOCYTES % 10.8 % (15.0-51.0); MEAN CORPUSCULAR HEMOGLOBIN 28.7 pg (29.0-33.0); MEAN CORPUSCULAR HGB CONC 32.1 g/dl (32.0-37.0); MEAN CORPUSCULAR VOLUME 89.4 fl (82.0-101.0); MEAN PLATELET VOLUME 8.8 fl (7.4-10.4); MONOCYTE # 0.8 10^3/ul (0.3-0.9); MONOCYTES % 10.4 % (0.0-11.0); NEUTROPHIL # 6.1 10^3/ul (1.6-7.5); NEUTROPHILS % 74.8 % (39.0-77.0); PLATELET COUNT 164 10^3/UL (140-415); RED BLOOD COUNT 3.31 10^6/ul (4.70-6.10); RED CELL DISTRIBUTION WIDTH 18.9 % (11.5-14.5); WHITE BLOOD COUNT 8.1 10^3/ul (4.8-10.8)
[2016-12-01 06:42] LABS: POTASSIUM 4.8 mmol/L (3.5-5.1)
[2016-12-01 06:45] LABS: CREATININE 5.42 mg/dl (0.61-1.24)
[2016-12-01 06:46] LABS: CALCIUM 7.7 mg/dl (8.4-10.2)
[2016-12-01] MEDS: INSULIN ASPART [NOVOLOG] 3 ML PEN SC SCH ×4 (07:55→21:31)
[2016-12-01] MEDS: ASPIRIN 81 MG TAB PO SCH (08:54)
[2016-12-01] MEDS: LORAZEPAM 0.5 MG TAB PO PRN (08:54)
--- NOTE | 2016-12-01 11:18 | PN ---
Date/Time of Note Date/Time of Note DATE: 12/01/16 TIME: 11:17 Assessment/Plan VTE Prophylaxis VTE Prophylaxis Intervention: SCD's Lines/Catheters IV [facility] PICC Line Central line still needed: Yes Urinary Cath still in place: No Assessment/Plan Chief Complaint/Hosp Course ASSESSMENT AND PLAN: - Severe hypotension requiring pressors, resolved. - Congestive heart failure exacerbation with ejection fraction of 20% per last echo. Continue to remove fluids with hemodialysis. - Ascites, status post paracentesis. - End-stage renal disease, hemodialysis-dependent. Dr. Maddox is following from nephrology standpoint. Continue patient on hemodialysis. - Coronary artery disease status post coronary artery bypass graft. Continue patient on aspirin and Coreg. Dr. Cee is following from cardiology standpoint. - Hypothyroidism. TSH is 14, Synthroid increased to 125. - Diabetes mellitus type 2. Continue to monitor blood sugar with mild algorithm scale, NovoLog coverage. - Hemodialysis access, status post right AV fistulogram by Dr. Loco, vascular surgery on 11/21. - Liver cirrhosis and portal hypertension. Dr. Kirkpatrick is following in gastroenterology consultation. Continue Protonix for peptic ulcer disease prophylaxis. Further recommendations based on clinical course. Plan of care discussed with Dr. Vick. Problems: Subjective 24 Hr Interval Summary Free Text/Dictation Patient complains of abdominal distention due to increase in ascites, complains of generalized weakness, stable vital signs. Exam/Review of Systems Vital Signs Vitals Vital Signs Date Time Temp Pulse Resp B/P Pulse Ox O2 Delivery O2 Flow Rate FiO2 12/01/16 11:08 98.2 108 19 117/72 96 11/29/16 05:30 Room Air Intake and Output 11/30/16 11/30/16 12/01/16 15:00 23:00 07:00 Intake Total 750 ml 500 ml Balance 750 ml 500 ml Exam GENERAL: well-developed, well-nourished male, currently is awake, alert. HEENT: Head is atraumatic, normocephalic. NECK: Supple. JVD is present, no cervical lymphadenopathy. CHEST: Lungs are clear bilaterally, slightly diminished at the bases. CARDIOVASCULAR: Regular rhythm and rate, normal S1, S2. No murmurs, gallops, clicks, rubs noted. The patient has a left chest permanent pacemaker with AICD. GASTROINTESTINAL: Abdomen is protuberant, soft, slightly distended, nontender. Bowel sounds present. No guarding, no rebound tenderness. SKIN: No rash, petechiae. EXTREMITIES: The patient has bilateral lower extremity edema, 3+. NEUROLOGIC: The patient is awake, alert and oriented x3. Results Result Diagram: 12/01/16 0550 12/01/16 0550 Results 24 hrs Laboratory Tests Test 11/30/16 12:08 11/30/16 21:22 12/01/16 05:50 12/01/16 08:51 Bedside Glucose 152 164 189 Anion Gap 21 H Basophils # 0.1 Basophils % 0.6 Blood Urea Nitrogen 46 #H Calcium Level 7.7 L Carbon Dioxide Level 22 Chloride Level 93 L Creatinine 5.42 H Eosinophils # 0.2 Eosinophils % 2.5 Glucose Level 176 Hematocrit 29.6 L Hemoglobin 9.5 L Lymphocytes # 0.9 Lymphocytes % 10.8 L Mean Corpuscular Hemoglobin 28.7 L Mean Corpuscular Hemoglobin Concent 32.1 Mean Corpuscular Volume 89.4 Mean Platelet Volume 8.8 # Monocytes # 0.8 Monocytes % 10.4 Neutrophils # 6.1 Neutrophils % 74.8 Nucleated Red Blood Cells # 0.0 Nucleated Red Blood Cells % 0.0 Platelet Count 164 Potassium Level 4.8 Red Blood Count 3.31 L Red Cell Distribution Width 18.9 H Sodium Level 131 L White Blood Count 8.1 Medications Medications Current Medications Lorazepam (Ativan) 0.5 mg Q8H PRN PO ANXIETY Last administered on 12/01/16 08: 54; Admin Dose 0.5 MG; Start 11/20/16 at 12:00 Ondansetron HCl (Zofran Inj) 4 mg Q6H PRN IV NAUSEA AND/OR VOMITING Last administered on 11/23/16 05:32; Admin Dose 4 MG; Start 11/20/16 at 12:00 Aspirin (Aspirin) 81 mg DAILY PO Last administered on 12/01/16 08:54; Admin Dose 81 MG; Start 11/21/16 at 09:00 Nitroglycerin (Nitroglycerin (Sl Tab) 0.4 Mg) 1 tab Q5M PRN SL CHEST PAIN; Start 11/20/16 at 12:00 Acetaminophen (Tylenol Tab) 650 mg Q6H PRN PO PAIN LEVEL 1-3 OR FEVER; Start at 12:00 Morphine Sulfate (morphine) 2 mg Q4H PRN IV PAIN LEVEL 7-10 Last administered on 12/01/16 06:04; Admin Dose 2 MG; Start 11/20/16 at 12:00 Zolpidem Tartrate (Ambien) 5 mg QHS PRN PO INSOMNIA; Start 11/20/16 at 12:00 Pantoprazole (Protonix Tab) 40 mg DAILY@06 PO Last administered on 12/01/16 05 :48; Admin Dose 40 MG; Start 11/21/16 at 06:00 Miscellaneous Information 1 ea NOTE XX ; Start 11/20/16 at 12:30 Glucose (Glutose) 15 gm Q15M PRN PO DECREASED GLUCOSE; Start 11/20/16 at 12:30 Glucose (Glutose) 22.5 gm Q15M PRN PO DECREASED GLUCOSE; Start 11/20/16 at 12: 30 Dextrose (D50w Syringe) 25 ml Q15M PRN IV DECREASED GLUCOSE; Start 11/20/16 at 12:30 Dextrose (D50w Syringe) 50 ml Q15M PRN IV DECREASED GLUCOSE; Start 11/20/16 at 12:30 Glucagon (Glucagen) 1 mg Q15M PRN IM DECREASED GLUCOSE; Start 11/20/16 at 12:30 Glucose (Glutose) 15 gm Q15M PRN BUCCAL DECREASED GLUCOSE; Start 11/20/16 at 12 :30 Levothyroxine Sodium (Synthroid) 125 mcg DAILY@06 PO Last administered on 05:48; Admin Dose 125 MCG; Start 11/22/16 at 06:00 Guaifenesin (Robitussin Liquid Cup) 100 mg Q6H PRN PO COUGH Last administered on 11/25/16 21:58; Admin Dose 100 MG; Start 11/23/16 at 16:30 IV Flush (NS 10 ml) 10 ml PRN PRN IV IV PROTOCOL; Start 11/24/16 at 15:30 Insulin Glargine (Lantus) 15 unit HS SC Last administered on 11/30/16 21:25; Admin Dose 15 UNIT; Start 11/26/16 at 21:00 Midodrine (Proamatine) 5 mg BID@09,17 PRN PO sbp<80 Last administered on 19:48; Admin Dose 5 MG; Start 11/28/16 at 17:00 DICKSON GROSSMAN Dec 01, 2016 11:18
--- NOTE | 2016-12-01 13:43 | CONS ---
Date/Time of Note Date/Time of Note DATE: 12/01/16 TIME: 13:41 Assessment/Plan Assessment/Plan Additional Assessment/Plan Hypotension, improving AV fistula stenosis status post venoplasty Acute decompensated systolic and diastolic heart failure Cardiomyopathy, likely ischemic and nonischemic in origin with an ejection fraction less than 20%. (Denied cardiac transplant at [facility]) Biventricular pacemaker and ICD Mitral and tricuspid valve regurgitation. Severe pulmonary hypertension. End-stage renal disease on hemodialysis Ascites status post paracentesis -Blood pressure trend has remained stable. Midodrine when necessary. Undergoing evaluation for possible abdominal drain given need of recurrent paracentesis. If unable to be performed, would proceed with paracentesis. Would do with the support of albumin Consultation Date/Type/Reason Admit Date/Time Nov 20, 2016 at 09:34 Initial Consult Date 11/21/16 Type of Consultation: cv Referring Provider: DEMETRA BRUNO MD 24 HR Interval Summary Free Text/Dictation Abdominal ascites has been increasing, mild shortness of breath with activity Exam/Review of Systems Vital Signs Vitals Vital Signs Date Time Temp Pulse Resp B/P Pulse Ox O2 Delivery O2 Flow Rate FiO2 12/01/16 12:36 104 12/01/16 11:08 98.2 19 117/72 96 11/29/16 05:30 Room Air Intake and Output 11/30/16 11/30/16 12/01/16 15:00 23:00 07:00 Intake Total 750 ml 500 ml Balance 750 ml 500 ml Exam No apparent distress Constitutional: alert, frail, oriented Head: normocephalic Neck: supple Respiratory: other (Coarse breath sounds bilaterally with basal crackles) Cardiovascular: other (S1-S2 heard), regular rate and rhythm Gastrointestinal: bowel sounds, distended, other (No guarding), soft, tender Extremities: edema Results Result Diagram: 12/01/16 0550 12/01/16 0550 Results 24 hrs Laboratory Tests Test 11/30/16 21:22 12/01/16 05:50 12/01/16 08:51 12/01/16 11:58 Bedside Glucose 164 189 173 Anion Gap 21 H Basophils # 0.1 Basophils % 0.6 Blood Urea Nitrogen 46 #H Calcium Level 7.7 L Carbon Dioxide Level 22 Chloride Level 93 L Creatinine 5.42 H Eosinophils # 0.2 Eosinophils % 2.5 Glucose Level 176 Hematocrit 29.6 L Hemoglobin 9.5 L Lymphocytes # 0.9 Lymphocytes % 10.8 L Mean Corpuscular Hemoglobin 28.7 L Mean Corpuscular Hemoglobin Concent 32.1 Mean Corpuscular Volume 89.4 Mean Platelet Volume 8.8 # Monocytes # 0.8 Monocytes % 10.4 Neutrophils # 6.1 Neutrophils % 74.8 Nucleated Red Blood Cells # 0.0 Nucleated Red Blood Cells % 0.0 Platelet Count 164 Potassium Level 4.8 Red Blood Count 3.31 L Red Cell Distribution Width 18.9 H Sodium Level 131 L White Blood Count 8.1 Medications Medications Current Medications Lorazepam (Ativan) 0.5 mg Q8H PRN PO ANXIETY Last administered on 12/01/16 08: 54; Admin Dose 0.5 MG; Start 11/20/16 at 12:00 Ondansetron HCl (Zofran Inj) 4 mg Q6H PRN IV NAUSEA AND/OR VOMITING Last administered on 11/23/16 05:32; Admin Dose 4 MG; Start 11/20/16 at 12:00 Aspirin (Aspirin) 81 mg DAILY PO Last administered on 12/01/16 08:54; Admin Dose 81 MG; Start 11/21/16 at 09:00 Nitroglycerin (Nitroglycerin (Sl Tab) 0.4 Mg) 1 tab Q5M PRN SL CHEST PAIN; Start 11/20/16 at 12:00 Acetaminophen (Tylenol Tab) 650 mg Q6H PRN PO PAIN LEVEL 1-3 OR FEVER; Start at 12:00 Morphine Sulfate (morphine) 2 mg Q4H PRN IV PAIN LEVEL 7-10 Last administered on 12/01/16 11:54; Admin Dose 2 MG; Start 11/20/16 at 12:00 Zolpidem Tartrate (Ambien) 5 mg QHS PRN PO INSOMNIA; Start 11/20/16 at 12:00 Pantoprazole (Protonix Tab) 40 mg DAILY@06 PO Last administered on 12/01/16 05 :48; Admin Dose 40 MG; Start 11/21/16 at 06:00 Miscellaneous Information 1 ea NOTE XX ; Start 11/20/16 at 12:30 Glucose (Glutose) 15 gm Q15M PRN PO DECREASED GLUCOSE; Start 11/20/16 at 12:30 Glucose (Glutose) 22.5 gm Q15M PRN PO DECREASED GLUCOSE; Start 11/20/16 at 12: 30 Dextrose (D50w Syringe) 25 ml Q15M PRN IV DECREASED GLUCOSE; Start 11/20/16 at 12:30 Dextrose (D50w Syringe) 50 ml Q15M PRN IV DECREASED GLUCOSE; Start 11/20/16 at 12:30 Glucagon (Glucagen) 1 mg Q15M PRN IM DECREASED GLUCOSE; Start 11/20/16 at 12:30 Glucose (Glutose) 15 gm Q15M PRN BUCCAL DECREASED GLUCOSE; Start 11/20/16 at 12 :30 Levothyroxine Sodium (Synthroid) 125 mcg DAILY@06 PO Last administered on 05:48; Admin Dose 125 MCG; Start 11/22/16 at 06:00 Guaifenesin (Robitussin Liquid Cup) 100 mg Q6H PRN PO COUGH Last administered on 11/25/16 21:58; Admin Dose 100 MG; Start 11/23/16 at 16:30 IV Flush (NS 10 ml) 10 ml PRN PRN IV IV PROTOCOL; Start 11/24/16 at 15:30 Insulin Glargine (Lantus) 15 unit HS SC Last administered on 11/30/16 21:25; Admin Dose 15 UNIT; Start 11/26/16 at 21:00 Midodrine (Proamatine) 5 mg BID@,17 PRN PO sbp<80 Last administered on 19:48; Admin Dose 5 MG; Start 11/28/16 at 17:00 Harpreet Cee DO Dec 01, 2016 13:42
--- NOTE | 2016-12-01 15:03 | CONS ---
Date/Time of Note Date/Time of Note DATE: 12/01/16 TIME: 15:01 Assessment/Plan Assessment/Plan Additional Assessment/Plan IMPRESSION: 1. Congestive heart failure, status post automatic implantable cardioverter- defibrillator.feels better,no s.o.b,EF of 20% 2. End-stage renal disease on dialysis. 3. Coronary artery disease status post coronary artery bypass graft. 4. Diabetes mellitus. 5. Hypothyroidism. 6. Ascites. 7. Anemia. 8. Mild elevation of alkaline phosphatase. 9. Cirrhosis of liver with portal hypertension. 10. pt.became hypotensive and transferred to ICU for pressor support 11.s/p large volume paracentesis on 11/22/15 12.anemia r/o gi bleeding 13. hypotension PLAN: 1. At this point, is to continue with dialysis and take out more fluid during dialysis. 2. Paracentesis on a need basis under the cover of albumin. 3. Continue all his medication. 4. The patient is not a candidate for TIPS given his renal failure and cardiomyopathy. 5. He has refractory ascites, 6. no paracentesis until BP stabilized 7.Midodrine 8.low sodium diet 9abdominal drain as per radiologist,IR,discussed with IR if abdominal drain not performed in next few days ,then will proceed with paracentesis,with albumin infusion during procedure. Consultation Date/Type/Reason Admit Date/Time Nov 20, 2016 at 09:34 Initial Consult Date 11/21/16 Type of Consultation: cv Referring Provider: DEMETRA BRUNO MD 24 HR Interval Summary Constitutional: improved, no complaints Exam/Review of Systems Vital Signs Vitals Vital Signs Date Time Temp Pulse Resp B/P Pulse Ox O2 Delivery O2 Flow Rate FiO2 12/01/16 12:36 104 12/01/16 11:08 98.2 19 117/72 96 11/29/16 05:30 Room Air Intake and Output 11/30/16 11/30/16 12/01/16 15:00 23:00 07:00 Intake Total 750 ml 500 ml Balance 750 ml 500 ml Exam Constitutional: alert, oriented, well developed Psych: nl mood/affect, no complaints Head: atraumatic, normocephalic Eyes: EOMI, PERRL, nl conjunctiva, nl lids, nl sclera ENMT: nl external ears & nose, nl lips & teeth, nl nasal mucosa & septum Neck: non-tender, supple Respiratory: clear to auscultation, normal air movement Cardiovascular: nl pulses, regular rate and rhythm Gastrointestinal: nl liver, spleen, non-tender, soft Musculoskeletal: nl extremities to inspection, nl gait and stance Extremities: normal pulses 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, nl mental status, nl speech, nl strength Skin: nl turgor, No rash or lesions Lymph: nl lymph nodes Results Result Diagram: 12/01/16 0550 12/01/16 0550 Results 24 hrs Laboratory Tests Test 11/30/16 21:22 12/01/16 05:50 12/01/16 08:51 12/01/16 11:58 Bedside Glucose 164 189 173 Anion Gap 21 H Basophils # 0.1 Basophils % 0.6 Blood Urea Nitrogen 46 #H Calcium Level 7.7 L Carbon Dioxide Level 22 Chloride Level 93 L Creatinine 5.42 H Eosinophils # 0.2 Eosinophils % 2.5 Glucose Level 176 Hematocrit 29.6 L Hemoglobin 9.5 L Lymphocytes # 0.9 Lymphocytes % 10.8 L Mean Corpuscular Hemoglobin 28.7 L Mean Corpuscular Hemoglobin Concent 32.1 Mean Corpuscular Volume 89.4 Mean Platelet Volume 8.8 # Monocytes # 0.8 Monocytes % 10.4 Neutrophils # 6.1 Neutrophils % 74.8 Nucleated Red Blood Cells # 0.0 Nucleated Red Blood Cells % 0.0 Platelet Count 164 Potassium Level 4.8 Red Blood Count 3.31 L Red Cell Distribution Width 18.9 H Sodium Level 131 L White Blood Count 8.1 Medications Medications Current Medications Lorazepam (Ativan) 0.5 mg Q8H PRN PO ANXIETY Last administered on 12/01/16 08: 54; Admin Dose 0.5 MG; Start 11/20/16 at 12:00 Ondansetron HCl (Zofran Inj) 4 mg Q6H PRN IV NAUSEA AND/OR VOMITING Last administered on 11/23/16 05:32; Admin Dose 4 MG; Start 11/20/16 at 12:00 Aspirin (Aspirin) 81 mg DAILY PO Last administered on 12/01/16 08:54; Admin Dose 81 MG; Start 11/21/16 at 09:00 Nitroglycerin (Nitroglycerin (Sl Tab) 0.4 Mg) 1 tab Q5M PRN SL CHEST PAIN; Start 11/20/16 at 12:00 Acetaminophen (Tylenol Tab) 650 mg Q6H PRN PO PAIN LEVEL 1-3 OR FEVER; Start at 12:00 Morphine Sulfate (morphine) 2 mg Q4H PRN IV PAIN LEVEL 7-10 Last administered on 12/01/16 11:54; Admin Dose 2 MG; Start 11/20/16 at 12:00 Zolpidem Tartrate (Ambien) 5 mg QHS PRN PO INSOMNIA; Start 11/20/16 at 12:00 Pantoprazole (Protonix Tab) 40 mg DAILY@06 PO Last administered on 12/01/16 05 :48; Admin Dose 40 MG; Start 11/21/16 at 06:00 Miscellaneous Information 1 ea NOTE XX ; Start 11/20/16 at 12:30 Glucose (Glutose) 15 gm Q15M PRN PO DECREASED GLUCOSE; Start 11/20/16 at 12:30 Glucose (Glutose) 22.5 gm Q15M PRN PO DECREASED GLUCOSE; Start 11/20/16 at 12: 30 Dextrose (D50w Syringe) 25 ml Q15M PRN IV DECREASED GLUCOSE; Start 11/20/16 at 12:30 Dextrose (D50w Syringe) 50 ml Q15M PRN IV DECREASED GLUCOSE; Start 11/20/16 at 12:30 Glucagon (Glucagen) 1 mg Q15M PRN IM DECREASED GLUCOSE; Start 11/20/16 at 12:30 Glucose (Glutose) 15 gm Q15M PRN BUCCAL DECREASED GLUCOSE; Start 11/20/16 at 12 :30 Levothyroxine Sodium (Synthroid) 125 mcg DAILY@06 PO Last administered on 05:48; Admin Dose 125 MCG; Start 11/22/16 at 06:00 Guaifenesin (Robitussin Liquid Cup) 100 mg Q6H PRN PO COUGH Last administered on 11/25/16 21:58; Admin Dose 100 MG; Start 11/23/16 at 16:30 IV Flush (NS 10 ml) 10 ml PRN PRN IV IV PROTOCOL; Start 11/24/16 at 15:30 Insulin Glargine (Lantus) 15 unit HS SC Last administered on 11/30/16 21:25; Admin Dose 15 UNIT; Start 11/26/16 at 21:00 Midodrine (Proamatine) 5 mg BID@,17 PRN PO sbp<80 Last administered on t 19:48; Admin Dose 5 MG; Start 11/28/16 at 17:00 LOR MASON MD Dec 01, 2016 15:03
--- NOTE | 2016-12-01 20:50 | CONS ---
Date/Time of Note Date/Time of Note DATE: 12/01/16 TIME: 20:48 Assessment/Plan Assessment/Plan Chief Complaint/Hosp Course Next HD in AM Problems: Additional Assessment/Plan Difficult management problem. See GI note Continue present Rx including HD Consultation Date/Type/Reason Admit Date/Time Nov 20, 2016 at 09:34 Initial Consult Date 11/21/16 Type of Consultation: renal Referring Provider: DEMETRA BRUNO MD 24 HR Interval Summary Constitutional: improved Exam/Review of Systems Vital Signs Vitals Vital Signs Date Time Temp Pulse Resp B/P Pulse Ox O2 Delivery O2 Flow Rate FiO2 12/01/16 20:29 108 12/01/16 16:25 18 12/01/16 11:08 98.2 117/72 96 11/29/16 05:30 Room Air Intake and Output 11/30/16 11/30/16 12/01/16 15:00 23:00 07:00 Intake Total 750 ml 500 ml Balance 750 ml 500 ml Exam Constitutional: alert, oriented, well developed Psych: nl mood/affect, no complaints Head: atraumatic, normocephalic Eyes: EOMI, PERRL, nl conjunctiva, nl lids, nl sclera ENMT: nl external ears & nose, nl lips & teeth, nl nasal mucosa & septum Cardiovascular: nl pulses, regular rate and rhythm Gastrointestinal: ascites (improved post paracentasis) Musculoskeletal: nl extremities to inspection, nl gait and stance Extremities: normal pulses 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, nl mental status, nl speech, nl strength Skin: nl turgor, No rash or lesions Results Hct, Chemistry stable Result Diagram: 12/01/16 0550 12/01/16 0550 Results 24 hrs Laboratory Tests Test 11/30/16 21:22 12/01/16 05:50 12/01/16 08:51 12/01/16 11:58 Bedside Glucose 164 189 173 Anion Gap 21 H Basophils # 0.1 Basophils % 0.6 Blood Urea Nitrogen 46 #H Calcium Level 7.7 L Carbon Dioxide Level 22 Chloride Level 93 L Creatinine 5.42 H Eosinophils # 0.2 Eosinophils % 2.5 Glucose Level 176 Hematocrit 29.6 L Hemoglobin 9.5 L Lymphocytes # 0.9 Lymphocytes % 10.8 L Mean Corpuscular Hemoglobin 28.7 L Mean Corpuscular Hemoglobin Concent 32.1 Mean Corpuscular Volume 89.4 Mean Platelet Volume 8.8 # Monocytes # 0.8 Monocytes % 10.4 Neutrophils # 6.1 Neutrophils % 74.8 Nucleated Red Blood Cells # 0.0 Nucleated Red Blood Cells % 0.0 Platelet Count 164 Potassium Level 4.8 Red Blood Count 3.31 L Red Cell Distribution Width 18.9 H Sodium Level 131 L White Blood Count 8.1 Test 12/01/16 17:32 Bedside Glucose 167 Medications Medications Current Medications Lorazepam (Ativan) 0.5 mg Q8H PRN PO ANXIETY Last administered on 12/01/16 08: 54; Admin Dose 0.5 MG; Start 11/20/16 at 12:00 Ondansetron HCl (Zofran Inj) 4 mg Q6H PRN IV NAUSEA AND/OR VOMITING Last administered on 11/23/16 05:32; Admin Dose 4 MG; Start 11/20/16 at 12:00 Aspirin (Aspirin) 81 mg DAILY PO Last administered on 12/01/16 08:54; Admin Dose 81 MG; Start 11/21/16 at 09:00 Nitroglycerin (Nitroglycerin (Sl Tab) 0.4 Mg) 1 tab Q5M PRN SL CHEST PAIN; Start 11/20/16 at 12:00 Acetaminophen (Tylenol Tab) 650 mg Q6H PRN PO PAIN LEVEL 1-3 OR FEVER; Start at 12:00 Morphine Sulfate (morphine) 2 mg Q4H PRN IV PAIN LEVEL 7-10 Last administered on 12/01/16 11:54; Admin Dose 2 MG; Start 11/20/16 at 12:00 Zolpidem Tartrate (Ambien) 5 mg QHS PRN PO INSOMNIA; Start 11/20/16 at 12:00 Pantoprazole (Protonix Tab) 40 mg DAILY@06 PO Last administered on 12/01/16 05 :48; Admin Dose 40 MG; Start 11/21/16 at 06:00 Miscellaneous Information 1 ea NOTE XX ; Start 11/20/16 at 12:30 Glucose (Glutose) 15 gm Q15M PRN PO DECREASED GLUCOSE; Start 11/20/16 at 12:30 Glucose (Glutose) 22.5 gm Q15M PRN PO DECREASED GLUCOSE; Start 11/20/16 at 12: 30 Dextrose (D50w Syringe) 25 ml Q15M PRN IV DECREASED GLUCOSE; Start 11/20/16 at 12:30 Dextrose (D50w Syringe) 50 ml Q15M PRN IV DECREASED GLUCOSE; Start 11/20/16 at 12:30 Glucagon (Glucagen) 1 mg Q15M PRN IM DECREASED GLUCOSE; Start 11/20/16 at 12:30 Glucose (Glutose) 15 gm Q15M PRN BUCCAL DECREASED GLUCOSE; Start 11/20/16 at 12 :30 Levothyroxine Sodium (Synthroid) 125 mcg DAILY@06 PO Last administered on 05:48; Admin Dose 125 MCG; Start 11/22/16 at 06:00 Guaifenesin (Robitussin Liquid Cup) 100 mg Q6H PRN PO COUGH Last administered on 11/25/16 21:58; Admin Dose 100 MG; Start 11/23/16 at 16:30 IV Flush (NS 10 ml) 10 ml PRN PRN IV IV PROTOCOL; Start 11/24/16 at 15:30 Insulin Glargine (Lantus) 15 unit HS SC Last administered on 11/30/16 21:25; Admin Dose 15 UNIT; Start 11/26/16 at 21:00 Midodrine (Proamatine) 5 mg BID@,17 PRN PO sbp<80 Last administered on 19:48; Admin Dose 5 MG; Start 11/28/16 at 17:00 MILADY ANDERSON MD Dec 01, 2016 20:50
[2016-12-01] MEDS: INSULIN GLARGINE [LANtus] 3 ML PEN SC SCH (21:00)
[2016-12-02] VITALS (12 sets, daily range): BP systolic 82–125; BP diastolic 39–76; PULSE 90–101; RESP 16–20
[2016-12-02] MEDS: morphine 2 MG INJ IV PRN ×5 (01:15→21:18)
[2016-12-02] MEDS: LORAZEPAM 0.5 MG TAB PO PRN ×3 (01:16→21:18)
[2016-12-02] MEDS ORDERED: ALBUMIN HUMAN 25% 100 ML IV PRN (02:00)
[2016-12-02] MEDS: PANTOPRAZOLE (EC) 40 MG TAB PO SCH (06:28)
[2016-12-02] MEDS: LEVOTHYROXINE 125 MCG TAB PO SCH (06:28)
[2016-12-02 07:26] LABS: INR 1.21; PROTIME 15.4 Sec (12.2-14.2); PT RATIO 1.2
[2016-12-02 07:27] LABS: POTASSIUM 3.9 mmol/L (3.5-5.1)
[2016-12-02 07:30] LABS: CREATININE 3.74 mg/dl (0.61-1.24)
[2016-12-02 07:31] LABS: CALCIUM 7.1 mg/dl (8.4-10.2)
[2016-12-02 07:40] LABS: BASOPHILS % 0.7 % (0.0-2.0); EOSINOPHILS # 0.2 10^3/ul (0.0-0.5); EOSINOPHILS % 2.9 % (0.0-7.0); HEMATOCRIT 26.3 % (42.0-52.0); HEMOGLOBIN 8.9 g/dl (14.0-18.0); LYMPHOCYTES # 0.9 10^3/ul (0.8-2.9); LYMPHOCYTES % 12.2 % (15.0-51.0); MEAN CORPUSCULAR HEMOGLOBIN 29.4 pg (29.0-33.0); MEAN CORPUSCULAR HGB CONC 33.7 g/dl (32.0-37.0); MEAN PLATELET VOLUME 6.7 fl (7.4-10.4); MONOCYTE # 0.9 10^3/ul (0.3-0.9); MONOCYTES % 13.3 % (0.0-11.0); NEUTROPHIL # 4.9 10^3/ul (1.6-7.5); NEUTROPHILS % 70.9 % (39.0-77.0); PLATELET COUNT 164 10^3/UL (140-440); RED BLOOD COUNT 3.02 10^6/ul (4.70-6.10); RED CELL DISTRIBUTION WIDTH 20.1 % (11.5-14.5)
[2016-12-02 07:42] LABS: CONDITION 1; LH ANALYZER COMMENTS 1
[2016-12-02] MEDS: INSULIN ASPART [NOVOLOG] 3 ML PEN SC SCH ×4 (07:55→21:33)
[2016-12-02] MEDS: ASPIRIN 81 MG TAB PO SCH (08:24)
--- NOTE | 2016-12-02 10:55 | PN ---
Date/Time of Note Date/Time of Note DATE: 12/02/16 TIME: 10:54 Assessment/Plan VTE Prophylaxis VTE Prophylaxis Intervention: other Lines/Catheters [facility] PICC Line Central line still needed: Yes Urinary Cath still in place: No Assessment/Plan Assessment/Plan - Severe hypotension requiring pressors, resolved. - Congestive heart failure exacerbation with ejection fraction of 20% per last echo. Continue to remove fluids with hemodialysis. - Ascites, status post paracentesis. - End-stage renal disease, hemodialysis-dependent. Dr. Maddox is following from nephrology standpoint. Continue patient on hemodialysis. - Coronary artery disease status post coronary artery bypass graft. Continue patient on aspirin and Coreg. Dr. Cee is following from cardiology standpoint. - Hypothyroidism. TSH is 14, Synthroid increased to 125. - Diabetes mellitus type 2. Continue to monitor blood sugar with mild algorithm scale, NovoLog coverage. - Hemodialysis access, status post right AV fistulogram by Dr. Loco, vascular surgery on 11/21. - Liver cirrhosis and portal hypertension. Dr. Kirkpatrick is following in gastroenterology consultation. Plan for tunnel catheter vs paracentesis today . Continue Protonix for peptic ulcer disease prophylaxis. Further recommendations based on clinical course. Plan of care discussed with Dr. Vick. Subjective 24 Hr Interval Summary Eyes: no complaints ENT: no complaints Respiratory: no complaints Gastrointestinal: pain Genitourinary: no complaints Musculoskeletal: no complaints Skin: no complaints Neurologic: no complaints Exam/Review of Systems Vital Signs Vitals Vital Signs Date Time Temp Pulse Resp B/P Pulse Ox O2 Delivery O2 Flow Rate FiO2 12/02/16 08:14 101 12/02/16 07:02 98.0 20 98/49 95 11/29/16 05:30 Room Air Intake and Output 12/01/16 12/01/16 12/02/16 15:00 23:00 07:00 Intake Total 1220 ml Output Total 3500 ml Balance -2280 ml Exam Constitutional: alert, oriented Psych: nl mood/affect Head: atraumatic Eyes: EOMI ENMT: nl external ears & nose Neck: non-tender Respiratory: clear to auscultation Cardiovascular: nl pulses Gastrointestinal: ascites Musculoskeletal: nl extremities to inspection Extremities: normal pulses 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: nl mental status Skin: nl turgor Lymph: nontender Results Result Diagram: 12/02/1622 12/02/16 0622 Results 24 hrs Laboratory Tests Test 12/01/16 11:58 12/01/16 17:32 12/01/16 21:18 12/02/16 02:18 Bedside Glucose 173 167 194 149 Test 12/02/16 06:22 12/02/16 08:15 Anion Gap 18 H Basophils # 0.0 Basophils % 0.7 Blood Morphology Comment Blood Urea Nitrogen 33 #H Calcium Level 7.1 L Carbon Dioxide Level 22 Chloride Level 100 Creatinine 3.74 #H Eosinophils # 0.2 Eosinophils % 2.9 Glucose Level 142 Hematocrit 26.3 L Hemoglobin 8.9 L INR International Normalized Ratio 1.21 Lymphocytes # 0.9 Lymphocytes % 12.2 L Mean Corpuscular Hemoglobin 29.4 Mean Corpuscular Hemoglobin Concent 33.7 Mean Corpuscular Volume 87.0 Mean Platelet Volume 6.7 #L Monocytes # 0.9 Monocytes % 13.3 H Neutrophils # 4.9 Neutrophils % 70.9 Nucleated Red Blood Cells # 0.0 Nucleated Red Blood Cells % 0.0 Platelet Count 164 Potassium Level 3.9 Prothrombin Time 15.4 H Prothrombin Time Ratio 1.2 Red Blood Count 3.02 L Red Cell Distribution Width 20.1 H Sodium Level 136 White Blood Count 7.0 Bedside Glucose 128 Medications Medications Current Medications Lorazepam (Ativan) 0.5 mg Q8H PRN PO ANXIETY Last administered on 12/02/16 01: 16; Admin Dose 0.5 MG; Start 11/20/16 at 12:00 Ondansetron HCl (Zofran Inj) 4 mg Q6H PRN IV NAUSEA AND/OR VOMITING Last administered on 11/23/16 05:32; Admin Dose 4 MG; Start 11/20/16 at 12:00 Aspirin (Aspirin) 81 mg DAILY PO Last administered on 12/02/16 08:24; Admin Dose 81 MG; Start 11/21/16 at 09:00 Nitroglycerin (Nitroglycerin (Sl Tab) 0.4 Mg) 1 tab Q5M PRN SL CHEST PAIN; Start 11/20/16 at 12:00 Acetaminophen (Tylenol Tab) 650 mg Q6H PRN PO PAIN LEVEL 1-3 OR FEVER; Start at 12:00 Morphine Sulfate (morphine) 2 mg Q4H PRN IV PAIN LEVEL 7-10 Last administered on 12/02/16 06:27; Admin Dose 2 MG; Start 11/20/16 at 12:00 Zolpidem Tartrate (Ambien) 5 mg QHS PRN PO INSOMNIA; Start 11/20/16 at 12:00 Pantoprazole (Protonix Tab) 40 mg DAILY@06 PO Last administered on 12/02/16 06 :28; Admin Dose 40 MG; Start 11/21/16 at 06:00 Miscellaneous Information 1 ea NOTE XX ; Start 11/20/16 at 12:30 Glucose (Glutose) 15 gm Q15M PRN PO DECREASED GLUCOSE; Start 11/20/16 at 12:30 Glucose (Glutose) 22.5 gm Q15M PRN PO DECREASED GLUCOSE; Start 11/20/16 at 12: 30 Dextrose (D50w Syringe) 25 ml Q15M PRN IV DECREASED GLUCOSE; Start 11/20/16 at 12:30 Dextrose (D50w Syringe) 50 ml Q15M PRN IV DECREASED GLUCOSE; Start 11/20/16 at 12:30 Glucagon (Glucagen) 1 mg Q15M PRN IM DECREASED GLUCOSE; Start 11/20/16 at 12:30 Glucose (Glutose) 15 gm Q15M PRN BUCCAL DECREASED GLUCOSE; Start 11/20/16 at 12 :30 Levothyroxine Sodium (Synthroid) 125 mcg DAILY@06 PO Last administered on 06:28; Admin Dose 125 MCG; Start 11/22/16 at 06:00 Guaifenesin (Robitussin Liquid Cup) 100 mg Q6H PRN PO COUGH Last administered on 11/25/16 21:58; Admin Dose 100 MG; Start 11/23/16 at 16:30 IV Flush (NS 10 ml) 10 ml PRN PRN IV IV PROTOCOL; Start 11/24/16 at 15:30 Insulin Glargine (Lantus) 15 unit HS SC Last administered on 11/30/16 21:25; Admin Dose 15 UNIT; Start 11/26/16 at 21:00 Midodrine 5 mg 5 mg BID@09,17 PRN PO sbp<80 Last administered on 11/28/16 19:48 ; Admin Dose 5 MG; Start 11/28/16 at 17:00 Albumin Human (Albumin Human 25%) 100 ml @ 100 mls/hr ONCE PRN IV after paracentesis; Start 12/02/16 at 02:00 PEBBLES REYES Dec 02, 2016 10:55
--- NOTE | 2016-12-02 11:03 | PN ---
Date/Time of Note Date/Time of Note DATE: 12/02/16 TIME: 11:01 Assessment/Plan VTE Prophylaxis VTE Prophylaxis Intervention: SCD's Lines/Catheters [facility] Type (from [facility]): PICC Line Central line still needed: No Urinary Cath still in place: No Assessment/Plan Chief Complaint/Hosp Course The patient is a 66-year-old male with history of coronary artery disease status post CABG, pacemaker, patient with end-stage renal failure on dialysis. The patient stated that he had his last dialysis this Sunday on November 18. The patient with history of portal hypertension and congestive heart failure. The patient presented to the emergency room with a distended abdomen due to recurrent ascites and patient underwent paracentesis with removal of 8.5 liters of serous fluid. The patient also noted to have elevated potassium of 6 and was given Kayexalate. The patient complained of increased bilateral lower extremities edema and shortness of breath. The patient was also given Lasix and breathing treatment and the patient will be admitted for further evaluation and management to telemetry floor. Problems: Assessment/Plan Hypotension, improving AV fistula stenosis status post venoplasty Acute decompensated systolic and diastolic heart failure Cardiomyopathy, likely ischemic and nonischemic in origin with an ejection fraction less than 20%. (Denied cardiac transplant at [facility]) Biventricular pacemaker and ICD Mitral and tricuspid valve regurgitation. Severe pulmonary hypertension. End-stage renal disease on hemodialysis Ascites status post paracentesis -Blood pressure trend has remained stable. Midodrine when necessary. Undergoing evaluation for possible abdominal drain given need of recurrent paracentesis. If unable to be performed, would proceed with paracentesis. Would do with the support of albumin Subjective 24 Hr Interval Summary Free Text/Dictation the patjnet with no compaoints and to have paracenteiss today Exam/Review of Systems Vital Signs Vitals Vital Signs Date Time Temp Pulse Resp B/P Pulse Ox O2 Delivery O2 Flow Rate FiO2 12/02/16 08:14 101 12/02/16 07:02 98.0 20 98/49 95 11/29/16 05:30 Room Air Intake and Output 12/01/16 12/01/16 12/02/16 15:00 23:00 07:00 Intake Total 1220 ml Output Total 3500 ml Balance -2280 ml Results Result Diagram: 12/02/1622 12/02/16 0622 Results 24 hrs Laboratory Tests Test 12/01/16 11:58 12/01/16 17:32 12/01/16 21:18 12/02/16 02:18 Bedside Glucose 173 167 194 149 Test 12/02/16 06:22 12/02/16 08:15 Anion Gap 18 H Basophils # 0.0 Basophils % 0.7 Blood Morphology Comment Blood Urea Nitrogen 33 #H Calcium Level 7.1 L Carbon Dioxide Level 22 Chloride Level 100 Creatinine 3.74 #H Eosinophils # 0.2 Eosinophils % 2.9 Glucose Level 142 Hematocrit 26.3 L Hemoglobin 8.9 L INR International Normalized Ratio 1.21 Lymphocytes # 0.9 Lymphocytes % 12.2 L Mean Corpuscular Hemoglobin 29.4 Mean Corpuscular Hemoglobin Concent 33.7 Mean Corpuscular Volume 87.0 Mean Platelet Volume 6.7 #L Monocytes # 0.9 Monocytes % 13.3 H Neutrophils # 4.9 Neutrophils % 70.9 Nucleated Red Blood Cells # 0.0 Nucleated Red Blood Cells % 0.0 Platelet Count 164 Potassium Level 3.9 Prothrombin Time 15.4 H Prothrombin Time Ratio 1.2 Red Blood Count 3.02 L Red Cell Distribution Width 20.1 H Sodium Level 136 White Blood Count 7.0 Bedside Glucose 128 Medications Medications Current Medications Lorazepam (Ativan) 0.5 mg Q8H PRN PO ANXIETY Last administered on 12/02/16 01: 16; Admin Dose 0.5 MG; Start 11/20/16 at 12:00 Ondansetron HCl (Zofran Inj) 4 mg Q6H PRN IV NAUSEA AND/OR VOMITING Last administered on 11/23/16 05:32; Admin Dose 4 MG; Start 11/20/16 at 12:00 Aspirin (Aspirin) 81 mg DAILY PO Last administered on 12/02/16 08:24; Admin Dose 81 MG; Start 11/21/16 at 09:00 Nitroglycerin (Nitroglycerin (Sl Tab) 0.4 Mg) 1 tab Q5M PRN SL CHEST PAIN; Start 11/20/16 at 12:00 Acetaminophen (Tylenol Tab) 650 mg Q6H PRN PO PAIN LEVEL 1-3 OR FEVER; Start at 12:00 Morphine Sulfate (morphine) 2 mg Q4H PRN IV PAIN LEVEL 7-10 Last administered on 12/02/16 06:27; Admin Dose 2 MG; Start 11/20/16 at 12:00 Zolpidem Tartrate (Ambien) 5 mg QHS PRN PO INSOMNIA; Start 11/20/16 at 12:00 Pantoprazole (Protonix Tab) 40 mg DAILY@06 PO Last administered on 12/02/16 06 :28; Admin Dose 40 MG; Start 11/21/16 at 06:00 Miscellaneous Information 1 ea NOTE XX ; Start 11/20/16 at 12:30 Glucose (Glutose) 15 gm Q15M PRN PO DECREASED GLUCOSE; Start 11/20/16 at 12:30 Glucose (Glutose) 22.5 gm Q15M PRN PO DECREASED GLUCOSE; Start 11/20/16 at 12: 30 Dextrose (D50w Syringe) 25 ml Q15M PRN IV DECREASED GLUCOSE; Start 11/20/16 at 12:30 Dextrose (D50w Syringe) 50 ml Q15M PRN IV DECREASED GLUCOSE; Start 11/20/16 at 12:30 Glucagon (Glucagen) 1 mg Q15M PRN IM DECREASED GLUCOSE; Start 11/20/16 at 12:30 Glucose (Glutose) 15 gm Q15M PRN BUCCAL DECREASED GLUCOSE; Start 11/20/16 at 12 :30 Levothyroxine Sodium (Synthroid) 125 mcg DAILY@06 PO Last administered on 06:28; Admin Dose 125 MCG; Start 11/22/16 at 06:00 Guaifenesin (Robitussin Liquid Cup) 100 mg Q6H PRN PO COUGH Last administered on 11/25/16 21:58; Admin Dose 100 MG; Start 11/23/16 at 16:30 IV Flush (NS 10 ml) 10 ml PRN PRN IV IV PROTOCOL; Start 11/24/16 at 15:30 Insulin Glargine (Lantus) 15 unit HS SC Last administered on 11/30/16 21:25; Admin Dose 15 UNIT; Start 11/26/16 at 21:00 Midodrine 5 mg 5 mg BID@09,17 PRN PO sbp<80 Last administered on 11/28/16 19:48 ; Admin Dose 5 MG; Start 11/28/16 at 17:00 Albumin Human (Albumin Human 25%) 100 ml @ 100 mls/hr ONCE PRN IV after paracentesis; Start 12/02/16 at 02:00 BERNABE JOYCE MD Dec 02, 2016 11:03
[2016-12-02] MEDS ORDERED: LIDOCAINE 1% (MPF) 5 ML VIAL ONE (17:33)
--- NOTE | 2016-12-02 19:01 | RADRPT ---
PROCEDURE: Ultrasound guided paracentesis CLINICAL INDICATION: Ascites TECHNIQUE: The risks benefits and alternatives of the procedure were explained to the patient. In formed written consent was obtained. A time out was performed. The patient understood the risks be nefits and alternatives and wished to proceed with the procedure. The overlying skin of the right l ower quadrant of the abdomen was prepped and draped in the usual sterile fashion. Approximately 10 c c of Xylocaine was injected locally for pain control. Utilizing ultrasound guidance, a skinny [facility] catheter was placed into the peritoneal cavity without difficulty. The patient tolerated the procedure well without complication. Approximately 6400 cc of thin mayank fluid was obtained. T he fluid was not sent to the lab for further analysis. COMPARISON: 11/22/2016 FINDINGS: Initial ultrasound demonstrated a large amount of simple appearing ascites. Successful ultrasound-g uided paracentesis with a total of 6400 cc of thin yellow fluid aspirated. IMPRESSION: Successful ultrasound-guided paracentesis. RPTAT: QQ .Jamarcus Mcintosh MD, MD Date Time Electronically viewed and signed by .Jamarcus Mcintosh MD, on 12/02/2016 19:01 .A/
[2016-12-02] MEDS: INSULIN GLARGINE [LANtus] 3 ML PEN SC SCH (21:00)
--- NOTE | 2016-12-02 21:55 | CONS ---
Date/Time of Note Date/Time of Note DATE: 12/02/16 TIME: 21:52 Assessment/Plan Assessment/Plan Chief Complaint/Hosp Course Next HD in AM Problems: Additional Assessment/Plan Pt awaiting peritoneal cath placement for fluid drainage. will dialyze in AM then TTS per schedule. Consultation Date/Type/Reason Admit Date/Time Nov 20, 2016 at 09:34 Initial Consult Date 11/21/16 Type of Consultation: renal Referring Provider: DEMETRA BRUNO MD Exam/Review of Systems Vital Signs Vitals Vital Signs Date Time Temp Pulse Resp B/P Pulse Ox O2 Delivery O2 Flow Rate FiO2 12/02/16 16:04 100 12/02/16 15:02 98.5 19 88/50 97 11/29/16 05:30 Room Air Intake and Output 12/01/16 12/01/16 12/02/16 15:00 23:00 07:00 Intake Total 1220 ml Output Total 3500 ml Balance -2280 ml Exam Constitutional: alert, oriented, well developed Psych: nl mood/affect, no complaints Head: atraumatic, normocephalic Eyes: EOMI, PERRL, nl conjunctiva, nl lids, nl sclera ENMT: nl external ears & nose, nl lips & teeth, nl nasal mucosa & septum Neck: non-tender, supple Respiratory: clear to auscultation, normal air movement Cardiovascular: nl pulses, regular rate and rhythm Musculoskeletal: nl extremities to inspection, nl gait and stance Extremities: normal pulses, other (AV Fistula left arm bruit present) 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, nl mental status, nl speech, nl strength Skin: nl turgor, No rash or lesions Results Hct stable, pt on Epogen for anemia Result Diagram: 12/02/1662112/02/16 0622 Results 24 hrs Laboratory Tests Test 12/02/16 02:18 12/02/16 06:22 12/02/16 08:15 12/02/16 11:33 Bedside Glucose 149 128 224 H Anion Gap 18 H Basophils # 0.0 Basophils % 0.7 Blood Morphology Comment Blood Urea Nitrogen 33 #H Calcium Level 7.1 L Carbon Dioxide Level 22 Chloride Level 100 Creatinine 3.74 #H Eosinophils # 0.2 Eosinophils % 2.9 Glucose Level 142 Hematocrit 26.3 L Hemoglobin 8.9 L INR International Normalized Ratio 1.21 Lymphocytes # 0.9 Lymphocytes % 12.2 L Mean Corpuscular Hemoglobin 29.4 Mean Corpuscular Hemoglobin Concent 33.7 Mean Corpuscular Volume 87.0 Mean Platelet Volume 6.7 #L Monocytes # 0.9 Monocytes % 13.3 H Neutrophils # 4.9 Neutrophils % 70.9 Nucleated Red Blood Cells # 0.0 Nucleated Red Blood Cells % 0.0 Platelet Count 164 Potassium Level 3.9 Prothrombin Time 15.4 H Prothrombin Time Ratio 1.2 Red Blood Count 3.02 L Red Cell Distribution Width 20.1 H Sodium Level 136 White Blood Count 7.0 Test 12/02/16 16:47 12/02/16 21:15 Bedside Glucose 202 179 Medications Medications Current Medications Lorazepam (Ativan) 0.5 mg Q8H PRN PO ANXIETY Last administered on 12/02/16 21: 18; Admin Dose 0.5 MG; Start 11/20/16 at 12:00 Ondansetron HCl (Zofran Inj) 4 mg Q6H PRN IV NAUSEA AND/OR VOMITING Last administered on 11/23/16 05:32; Admin Dose 4 MG; Start 11/20/16 at 12:00 Aspirin (Aspirin) 81 mg DAILY PO Last administered on 12/02/16 08:24; Admin Dose 81 MG; Start 11/21/16 at 09:00 Nitroglycerin (Nitroglycerin (Sl Tab) 0.4 Mg) 1 tab Q5M PRN SL CHEST PAIN; Start 11/20/16 at 12:00 Acetaminophen (Tylenol Tab) 650 mg Q6H PRN PO PAIN LEVEL 1-3 OR FEVER; Start at 12:00 Morphine Sulfate (morphine) 2 mg Q4H PRN IV PAIN LEVEL 7-10 Last administered on 12/02/16 21:18; Admin Dose 2 MG; Start 11/20/16 at 12:00 Zolpidem Tartrate (Ambien) 5 mg QHS PRN PO INSOMNIA; Start 11/20/16 at 12:00 Pantoprazole (Protonix Tab) 40 mg DAILY@06 PO Last administered on 12/02/16 06 :28; Admin Dose 40 MG; Start 11/21/16 at 06:00 Miscellaneous Information 1 ea NOTE XX ; Start 11/20/16 at 12:30 Glucose (Glutose) 15 gm Q15M PRN PO DECREASED GLUCOSE; Start 11/20/16 at 12:30 Glucose (Glutose) 22.5 gm Q15M PRN PO DECREASED GLUCOSE; Start 11/20/16 at 12: 30 Dextrose (D50w Syringe) 25 ml Q15M PRN IV DECREASED GLUCOSE; Start 11/20/16 at 12:30 Dextrose (D50w Syringe) 50 ml Q15M PRN IV DECREASED GLUCOSE; Start 11/20/16 at 12:30 Glucagon (Glucagen) 1 mg Q15M PRN IM DECREASED GLUCOSE; Start 11/20/16 at 12:30 Glucose (Glutose) 15 gm Q15M PRN BUCCAL DECREASED GLUCOSE; Start 11/20/16 at 12 :30 Levothyroxine Sodium (Synthroid) 125 mcg DAILY@06 PO Last administered on 06:28; Admin Dose 125 MCG; Start 11/22/16 at 06:00 Guaifenesin (Robitussin Liquid Cup) 100 mg Q6H PRN PO COUGH Last administered on 11/25/16 21:58; Admin Dose 100 MG; Start 11/23/16 at 16:30 IV Flush (NS 10 ml) 10 ml PRN PRN IV IV PROTOCOL; Start 11/24/16 at 15:30 Insulin Glargine (Lantus) 15 unit HS SC Last administered on 11/30/16 21:25; Admin Dose 15 UNIT; Start 11/26/16 at 21:00 Midodrine 5 mg 5 mg BID@,17 PRN PO sbp<80 Last administered on 11/28/16 19:48 ; Admin Dose 5 MG; Start 11/28/16 at 17:00 Albumin Human (Albumin Human 25%) 100 ml @ 100 mls/hr ONCE PRN IV after paracentesis; Start 12/02/16 at 02:00 MILADY ANDERSON MD Dec 02, 2016 21:54
[2016-12-03] VITALS (13 sets, daily range): BP systolic 71–159; BP diastolic 39–87; PULSE 90–115; RESP 16–20
[2016-12-03] MEDS: morphine 2 MG INJ IV PRN ×3 (01:32→12:26)
[2016-12-03] MEDS: LEVOTHYROXINE 125 MCG TAB PO SCH (05:37)
[2016-12-03] MEDS: LORAZEPAM 0.5 MG TAB PO PRN (05:37)
[2016-12-03] MEDS: PANTOPRAZOLE (EC) 40 MG TAB PO SCH (05:37)
[2016-12-03 06:12] LABS: BASOPHILS % 0.5 % (0.0-2.0); EOSINOPHILS # 0.2 10^3/ul (0.0-0.5); EOSINOPHILS % 2.9 % (0.0-7.0); HEMATOCRIT 29.2 % (42.0-52.0); HEMOGLOBIN 9.7 g/dl (14.0-18.0); LYMPHOCYTES # 0.8 10^3/ul (0.8-2.9); LYMPHOCYTES % 9.5 % (15.0-51.0); MEAN CORPUSCULAR HEMOGLOBIN 29.2 pg (29.0-33.0); MEAN CORPUSCULAR HGB CONC 33.2 g/dl (32.0-37.0); MEAN CORPUSCULAR VOLUME 87.8 fl (82.0-101.0); MEAN PLATELET VOLUME 6.7 fl (7.4-10.4); MONOCYTES % 11.3 % (0.0-11.0); NEUTROPHIL # 6.5 10^3/ul (1.6-7.5); NEUTROPHILS % 75.8 % (39.0-77.0); PLATELET COUNT 190 10^3/UL (140-440); RED BLOOD COUNT 3.33 10^6/ul (4.70-6.10); RED CELL DISTRIBUTION WIDTH 19.6 % (11.5-14.5); UNCORRECTED WBC 8.5 10^3/ul (4.8-10.8); WHITE BLOOD COUNT 8.5 10^3/ul (4.8-10.8)
[2016-12-03 06:24] LABS: CONDITION 1; LH ANALYZER COMMENTS 1
[2016-12-03 07:03] LABS: POTASSIUM 4.8 mmol/L (3.5-5.1)
[2016-12-03 07:06] LABS: CREATININE 5.17 mg/dl (0.61-1.24)
[2016-12-03 07:07] LABS: CALCIUM 7.8 mg/dl (8.4-10.2)
[2016-12-03] MEDS: ASPIRIN 81 MG TAB PO SCH (08:58)
[2016-12-03] MEDS: INSULIN ASPART [NOVOLOG] 3 ML PEN SC SCH ×4 (09:01→22:17)
--- NOTE | 2016-12-03 10:45 | PN ---
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 (6) Hypotension Status: Resolved Assessment/Plan hd per plan Subjective 24 Hr Interval Summary Constitutional: no complaints Eyes: no complaints Exam/Review of Systems Vital Signs Vitals Vital Signs Date Time Temp Pulse Resp B/P Pulse Ox O2 Delivery O2 Flow Rate FiO2 12/03/16 08:27 98 12/03/16 07:49 98.2 18 112/87 99 Intake and Output 12/02/16 12/02/16 12/03/16 15:00 23:00 07:00 Intake Total 800 ml 700 ml 800 ml Output Total 6400 ml Balance 800 ml 700 ml -5600 ml Exam Constitutional: alert, oriented Head: atraumatic Eyes: nl conjunctiva Neck: supple Respiratory: clear to auscultation Cardiovascular: regular rate and rhythm Gastrointestinal: distended, soft Extremities: normal pulses Results Result Diagram: 12/03/16 0550 12/03/16 0550 Results 24 hrs Laboratory Tests Test 12/02/16 11:33 12/02/16 16:47 12/02/16 21:15 12/03/16 02:43 Bedside Glucose 224 H 202 179 172 Test 12/03/16 05:50 12/03/16 08:28 Anion Gap 20 H Basophils # 0.0 Basophils % 0.5 Blood Morphology Comment Blood Urea Nitrogen 52 H Calcium Level 7.8 L Carbon Dioxide Level 21 Chloride Level 94 L Creatinine 5.17 H Eosinophils # 0.2 Eosinophils % 2.9 Glucose Level 196 Hematocrit 29.2 L Hemoglobin 9.7 L Lymphocytes # 0.8 Lymphocytes % 9.5 L Mean Corpuscular Hemoglobin 29.2 Mean Corpuscular Hemoglobin Concent 33.2 Mean Corpuscular Volume 87.8 Mean Platelet Volume 6.7 L Monocytes # 1.0 H Monocytes % 11.3 H Neutrophils # 6.5 Neutrophils % 75.8 Nucleated Red Blood Cells # 0.0 Nucleated Red Blood Cells % 0.0 Platelet Count 190 Potassium Level 4.8 Red Blood Count 3.33 L Red Cell Distribution Width 19.6 H Sodium Level 130 L White Blood Count 8.5 # Bedside Glucose 203 Medications Medications Current Medications Lorazepam (Ativan) 0.5 mg Q8H PRN PO ANXIETY Last administered on 12/03/16 05: 37; Admin Dose 0.5 MG; Start 11/20/16 at 12:00 Ondansetron HCl (Zofran Inj) 4 mg Q6H PRN IV NAUSEA AND/OR VOMITING Last administered on 11/23/16 05:32; Admin Dose 4 MG; Start 11/20/16 at 12:00 Aspirin (Aspirin) 81 mg DAILY PO Last administered on 12/03/16 08:58; Admin Dose 81 MG; Start 11/21/16 at 09:00 Nitroglycerin (Nitroglycerin (Sl Tab) 0.4 Mg) 1 tab Q5M PRN SL CHEST PAIN; Start 11/20/16 at 12:00 Acetaminophen (Tylenol Tab) 650 mg Q6H PRN PO PAIN LEVEL 1-3 OR FEVER; Start at 12:00 Morphine Sulfate (morphine) 2 mg Q4H PRN IV PAIN LEVEL 7-10 Last administered on 12/03/16 05:37; Admin Dose 2 MG; Start 11/20/16 at 12:00 Zolpidem Tartrate (Ambien) 5 mg QHS PRN PO INSOMNIA; Start 11/20/16 at 12:00 Pantoprazole (Protonix Tab) 40 mg DAILY@06 PO Last administered on 12/03/16 05 :37; Admin Dose 40 MG; Start 11/21/16 at 06:00 Miscellaneous Information 1 ea NOTE XX ; Start 11/20/16 at 12:30 Glucose (Glutose) 15 gm Q15M PRN PO DECREASED GLUCOSE; Start 11/20/16 at 12:30 Glucose (Glutose) 22.5 gm Q15M PRN PO DECREASED GLUCOSE; Start 11/20/16 at 12: 30 Dextrose (D50w Syringe) 25 ml Q15M PRN IV DECREASED GLUCOSE; Start 1/30/17 at 12:30 Dextrose (D50w Syringe) 50 ml Q15M PRN IV DECREASED GLUCOSE; Start 11/20/16 at 12:30 Glucagon (Glucagen) 1 mg Q15M PRN IM DECREASED GLUCOSE; Start 11/20/16 at 12:30 Glucose (Glutose) 15 gm Q15M PRN BUCCAL DECREASED GLUCOSE; Start 11/20/16 at 12 :30 Levothyroxine Sodium (Synthroid) 125 mcg DAILY@06 PO Last administered on 05:37; Admin Dose 125 MCG; Start 11/22/16 at 06:00 Guaifenesin (Robitussin Liquid Cup) 100 mg Q6H PRN PO COUGH Last administered on 11/25/16 21:58; Admin Dose 100 MG; Start 11/23/16 at 16:30 IV Flush (NS 10 ml) 10 ml PRN PRN IV IV PROTOCOL; Start 11/24/16 at 15:30 Insulin Glargine (Lantus) 15 unit HS SC Last administered on 11/30/16 21:25; Admin Dose 15 UNIT; Start 11/26/16 at 21:00 Midodrine 5 mg 5 mg BID@,17 PRN PO sbp<80 Last administered on 11/28/16 19:48 ; Admin Dose 5 MG; Start 11/28/16 at 17:00 Albumin Human (Albumin Human 25%) 100 ml @ 100 mls/hr ONCE PRN IV after paracentesis; Start 12/02/16 at 02:00 BRENDON MARSHALL MD Dec 03, 2016 10:45
--- NOTE | 2016-12-03 12:14 | CONS ---
Date/Time of Note Date/Time of Note DATE: 12/03/16 TIME: 12:12 Consultation Date/Type/Reason Admit Date/Time Nov 20, 2016 at 09:34 Initial Consult Date 11/21/16 Type of Consultation: renal Referring Provider: DEMETRA BRUNO MD 24 HR Interval Summary Free Text/Dictation Chief Complaint/Hosp Course The patient is a 66-year-old male with history of coronary artery disease status post CABG, pacemaker, patient with end-stage renal failure on dialysis. The patient stated that he had his last dialysis this Sunday on November 18. The patient with history of portal hypertension and congestive heart failure. The patient presented to the emergency room with a distended abdomen due to recurrent ascites and patient underwent paracentesis with removal of 8.5 liters of serous fluid. The patient also noted to have elevated potassium of 6 and was given Kayexalate. The patient complained of increased bilateral lower extremities edema and shortness of breath. The patient was also given Lasix and breathing treatment and the patient will be admitted for further evaluation and management to telemetry floor. Problems: Assessment/Plan Hypotension, improving AV fistula stenosis status post venoplasty Acute decompensated systolic and diastolic heart failure Cardiomyopathy, likely ischemic and nonischemic in origin with an ejection fraction less than 20%. (Denied cardiac transplant at [facility]) Biventricular pacemaker and ICD Mitral and tricuspid valve regurgitation. Severe pulmonary hypertension. End-stage renal disease on hemodialysis Ascites status post paracentesis -hypotensive today. Midodrine when necessary. Undergoing evaluation for possible abdominal drain given need of recurrent paracentesis. paracentesis yesterday already feels fluid accumulation Exam/Review of Systems Vital Signs Vitals Vital Signs Date Time Temp Pulse Resp B/P Pulse Ox O2 Delivery O2 Flow Rate FiO2 12/03/16 11:49 98.7 108 17 71/47 99 Intake and Output 12/02/16 12/02/16 12/03/16 15:00 23:00 07:00 Intake Total 800 ml 700 ml 800 ml Output Total 6400 ml Balance 800 ml 700 ml -5600 ml Results Result Diagram: 12/03/16 0550 12/03/16 0550 Results 24 hrs Laboratory Tests Test 12/02/16 16:47 12/02/16 21:15 12/03/16 02:43 12/03/16 05:50 Bedside Glucose 202 179 172 Anion Gap 20 H Basophils # 0.0 Basophils % 0.5 Blood Morphology Comment Blood Urea Nitrogen 52 H Calcium Level 7.8 L Carbon Dioxide Level 21 Chloride Level 94 L Creatinine 5.17 H Eosinophils # 0.2 Eosinophils % 2.9 Glucose Level 196 Hematocrit 29.2 L Hemoglobin 9.7 L Lymphocytes # 0.8 Lymphocytes % 9.5 L Mean Corpuscular Hemoglobin 29.2 Mean Corpuscular Hemoglobin Concent 33.2 Mean Corpuscular Volume 87.8 Mean Platelet Volume 6.7 L Monocytes # 1.0 H Monocytes % 11.3 H Neutrophils # 6.5 Neutrophils % 75.8 Nucleated Red Blood Cells # 0.0 Nucleated Red Blood Cells % 0.0 Platelet Count 190 Potassium Level 4.8 Red Blood Count 3.33 L Red Cell Distribution Width 19.6 H Sodium Level 130 L White Blood Count 8.5 # Test 12/03/16 08:28 12/03/16 11:37 Bedside Glucose 203 177 Medications Medications Current Medications Lorazepam (Ativan) 0.5 mg Q8H PRN PO ANXIETY Last administered on 12/03/16 05: 37; Admin Dose 0.5 MG; Start 11/20/16 at 12:00 Ondansetron HCl (Zofran Inj) 4 mg Q6H PRN IV NAUSEA AND/OR VOMITING Last administered on 11/23/16 05:32; Admin Dose 4 MG; Start 11/20/16 at 12:00 Aspirin (Aspirin) 81 mg DAILY PO Last administered on 12/03/16 08:58; Admin Dose 81 MG; Start 11/21/16 at 09:00 Nitroglycerin (Nitroglycerin (Sl Tab) 0.4 Mg) 1 tab Q5M PRN SL CHEST PAIN; Start 11/20/16 at 12:00 Acetaminophen (Tylenol Tab) 650 mg Q6H PRN PO PAIN LEVEL 1-3 OR FEVER; Start at 12:00 Morphine Sulfate (morphine) 2 mg Q4H PRN IV PAIN LEVEL 7-10 Last administered on 12/03/16 05:37; Admin Dose 2 MG; Start 11/20/16 at 12:00 Zolpidem Tartrate (Ambien) 5 mg QHS PRN PO INSOMNIA; Start 11/20/16 at 12:00 Pantoprazole (Protonix Tab) 40 mg DAILY@06 PO Last administered on 12/03/16 05 :37; Admin Dose 40 MG; Start 11/21/16 at 06:00 Miscellaneous Information 1 ea NOTE XX ; Start 11/20/16 at 12:30 Glucose (Glutose) 15 gm Q15M PRN PO DECREASED GLUCOSE; Start 11/20/16 at 12:30 Glucose (Glutose) 22.5 gm Q15M PRN PO DECREASED GLUCOSE; Start 11/20/16 at 12: 30 Dextrose (D50w Syringe) 25 ml Q15M PRN IV DECREASED GLUCOSE; Start 11/20/16 at 12:30 Dextrose (D50w Syringe) 50 ml Q15M PRN IV DECREASED GLUCOSE; Start 11/20/16 at 12:30 Glucagon (Glucagen) 1 mg Q15M PRN IM DECREASED GLUCOSE; Start 11/20/16 at 12:30 Glucose (Glutose) 15 gm Q15M PRN BUCCAL DECREASED GLUCOSE; Start 11/20/16 at 12 :30 Levothyroxine Sodium (Synthroid) 125 mcg DAILY@06 PO Last administered on 05:37; Admin Dose 125 MCG; Start 11/22/16 at 06:00 Guaifenesin (Robitussin Liquid Cup) 100 mg Q6H PRN PO COUGH Last administered on 11/25/16 21:58; Admin Dose 100 MG; Start 11/23/16 at 16:30 IV Flush (NS 10 ml) 10 ml PRN PRN IV IV PROTOCOL; Start 11/24/16 at 15:30 Insulin Glargine (Lantus) 15 unit HS SC Last administered on 11/30/16 21:25; Admin Dose 15 UNIT; Start 11/26/16 at 21:00 Midodrine 5 mg 5 mg BID@,17 PRN PO sbp<80 Last administered on 11/28/16 19:48 ; Admin Dose 5 MG; Start 11/28/16 at 17:00 Albumin Human (Albumin Human 25%) 100 ml @ 100 mls/hr ONCE PRN IV after paracentesis; Start 12/02/16 at 02:00 MIMI LO MD Dec 03, 2016 12:13
--- NOTE | 2016-12-03 13:42 | PN ---
Date/Time of Note Date/Time of Note DATE: 12/03/16 TIME: 13:40 Assessment/Plan VTE Prophylaxis VTE Prophylaxis Intervention: SCD's Assessment/Plan Assessment/Plan - Severe hypotension requiring pressors, resolved. - Congestive heart failure exacerbation with ejection fraction of 20% per last echo. Continue to remove fluids with hemodialysis. - Ascites, status post paracentesis -12/02/2016. 6.0 L removed - End-stage renal disease, hemodialysis-dependent. - Dr. Maddox is following from nephrology standpoint. Continue patient on hemodialysis. - Coronary artery disease status post coronary artery bypass graft. Continue patient on aspirin and Coreg. Dr. Cee is following from cardiology standpoint. - Hypothyroidism. TSH is 14, Synthroid increased to 125. - Diabetes mellitus type 2. Continue to monitor blood sugar with mild algorithm scale, NovoLog coverage. - Hemodialysis access, status post right AV fistulogram by Dr. Loco, vascular surgery on 11/21. - Liver cirrhosis and portal hypertension. Dr. Kirkpatrick is following in gastroenterology consultation. Plan for tunnel catheter vs paracentesis today . Continue Protonix for peptic ulcer disease prophylaxis. Further recommendations based on clinical course. Plan of care discussed with Dr. Vick. Subjective 24 Hr Interval Summary Eyes: no complaints ENT: no complaints Respiratory: cough, no complaints Gastrointestinal: pain Genitourinary: no complaints Musculoskeletal: no complaints Skin: no complaints Exam/Review of Systems Vital Signs Vitals Vital Signs Date Time Temp Pulse Resp B/P Pulse Ox O2 Delivery O2 Flow Rate FiO2 12/03/16 12:15 113 12/03/16 11:49 98.7 17 71/47 99 Intake and Output 12/02/16 12/02/16 12/03/16 15:00 23:00 07:00 Intake Total 800 ml 700 ml 800 ml Output Total 6400 ml Balance 800 ml 700 ml -5600 ml Exam Constitutional: alert, oriented, well developed Psych: nl mood/affect Head: normocephalic Eyes: EOMI, PERRL, nl sclera ENMT: nl external ears & nose Neck: non-tender Respiratory: diminished breath sounds Cardiovascular: nl pulses Gastrointestinal: ascites, distended, non-tender, soft Musculoskeletal: nl extremities to inspection 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: nl mental status, nl speech Skin: nl turgor Lymph: nontender Results Result Diagram: 12/03/16 0550 12/03/16 0550 Results 24 hrs Laboratory Tests Test 12/02/16 16:47 12/02/16 21:15 12/03/16 02:43 12/03/16 05:50 Bedside Glucose 202 179 172 Anion Gap 20 H Basophils # 0.0 Basophils % 0.5 Blood Morphology Comment Blood Urea Nitrogen 52 H Calcium Level 7.8 L Carbon Dioxide Level 21 Chloride Level 94 L Creatinine 5.17 H Eosinophils # 0.2 Eosinophils % 2.9 Glucose Level 196 Hematocrit 29.2 L Hemoglobin 9.7 L Lymphocytes # 0.8 Lymphocytes % 9.5 L Mean Corpuscular Hemoglobin 29.2 Mean Corpuscular Hemoglobin Concent 33.2 Mean Corpuscular Volume 87.8 Mean Platelet Volume 6.7 L Monocytes # 1.0 H Monocytes % 11.3 H Neutrophils # 6.5 Neutrophils % 75.8 Nucleated Red Blood Cells # 0.0 Nucleated Red Blood Cells % 0.0 Platelet Count 190 Potassium Level 4.8 Red Blood Count 3.33 L Red Cell Distribution Width 19.6 H Sodium Level 130 L White Blood Count 8.5 # Test 12/03/16 08:28 12/03/16 11:37 Bedside Glucose 203 177 Medications Medications Current Medications Lorazepam (Ativan) 0.5 mg Q8H PRN PO ANXIETY Last administered on 12/03/16 05: 37; Admin Dose 0.5 MG; Start 11/20/16 at 12:00 Ondansetron HCl (Zofran Inj) 4 mg Q6H PRN IV NAUSEA AND/OR VOMITING Last administered on 11/23/16 05:32; Admin Dose 4 MG; Start 11/20/16 at 12:00 Aspirin (Aspirin) 81 mg DAILY PO Last administered on 12/03/16 08:58; Admin Dose 81 MG; Start 11/21/16 at 09:00 Nitroglycerin (Nitroglycerin (Sl Tab) 0.4 Mg) 1 tab Q5M PRN SL CHEST PAIN; Start 11/20/16 at 12:00 Acetaminophen (Tylenol Tab) 650 mg Q6H PRN PO PAIN LEVEL 1-3 OR FEVER; Start at 12:00 Morphine Sulfate (morphine) 2 mg Q4H PRN IV PAIN LEVEL 7-10 Last administered on 12/03/16 05:37; Admin Dose 2 MG; Start 11/20/16 at 12:00 Zolpidem Tartrate (Ambien) 5 mg QHS PRN PO INSOMNIA; Start 11/20/16 at 12:00 Pantoprazole (Protonix Tab) 40 mg DAILY@06 PO Last administered on 12/03/16 05 :37; Admin Dose 40 MG; Start 11/21/16 at 06:00 Miscellaneous Information 1 ea NOTE XX ; Start 11/20/16 at 12:30 Glucose (Glutose) 15 gm Q15M PRN PO DECREASED GLUCOSE; Start 11/20/16 at 12:30 Glucose (Glutose) 22.5 gm Q15M PRN PO DECREASED GLUCOSE; Start 11/20/16 at 12: 30 Dextrose (D50w Syringe) 25 ml Q15M PRN IV DECREASED GLUCOSE; Start 11/20/16 at 12:30 Dextrose (D50w Syringe) 50 ml Q15M PRN IV DECREASED GLUCOSE; Start 11/20/16 at 12:30 Glucagon (Glucagen) 1 mg Q15M PRN IM DECREASED GLUCOSE; Start 11/20/16 at 12:30 Glucose (Glutose) 15 gm Q15M PRN BUCCAL DECREASED GLUCOSE; Start 11/20/16 at 12 :30 Levothyroxine Sodium (Synthroid) 125 mcg DAILY@06 PO Last administered on 05:37; Admin Dose 125 MCG; Start 11/22/16 at 06:00 Guaifenesin (Robitussin Liquid Cup) 100 mg Q6H PRN PO COUGH Last administered on 11/25/16 21:58; Admin Dose 100 MG; Start 11/23/16 at 16:30 IV Flush (NS 10 ml) 10 ml PRN PRN IV IV PROTOCOL; Start 11/24/16 at 15:30 Insulin Glargine (Lantus) 15 unit HS SC Last administered on 11/30/16 21:25; Admin Dose 15 UNIT; Start 11/26/16 at 21:00 Midodrine 5 mg 5 mg BID@,17 PRN PO sbp<80 Last administered on 11/28/16 19:48 ; Admin Dose 5 MG; Start 11/28/16 at 17:00 Albumin Human (Albumin Human 25%) 100 ml @ 100 mls/hr ONCE PRN IV after paracentesis; Start 12/02/16 at 02:00 PEBBLES REYES Dec 03, 2016 13:42
--- NOTE | 2016-12-03 17:18 | CONS ---
Date/Time of Note Date/Time of Note DATE: 12/03/16 TIME: 17:17 Assessment/Plan Assessment/Plan Additional Assessment/Plan Additional Assessment/Plan IMPRESSION: 1. Congestive heart failure, status post automatic implantable cardioverter- defibrillator.feels better,no s.o.b,EF of 20% 2. End-stage renal disease on dialysis. 3. Coronary artery disease status post coronary artery bypass graft. 4. Diabetes mellitus. 5. Hypothyroidism. 6. Ascites. 7. Anemia. 8. Mild elevation of alkaline phosphatase. 9. Cirrhosis of liver with portal hypertension. 10. pt.became hypotensive and transferred to ICU for pressor support 11.s/p large volume paracentesis on 11/22/15 12.anemia r/o gi bleeding 13. hypotension PLAN: 1. At this point, is to continue with dialysis and take out more fluid during dialysis. 2. Paracentesis on a need basis under the cover of albumin. 3. Continue all his medication. 4. The patient is not a candidate for TIPS given his renal failure and cardiomyopathy. 5. He has refractory ascites, 6. s/p paracentesis 7 liter removed 7.Midodrine 8.low sodium diet 9abdominal drain as per radiologist,IR,discussed with IR Consultation Date/Type/Reason Admit Date/Time Nov 20, 2016 at 09:34 Initial Consult Date 11/21/16 Type of Consultation: renal Referring Provider: DEMETRA BRUNO MD 24 HR Interval Summary Constitutional: improved Exam/Review of Systems Vital Signs Vitals Vital Signs Date Time Temp Pulse Resp B/P Pulse Ox O2 Delivery O2 Flow Rate FiO2 12/03/16 16:00 97.9 109 17 119/49 100 Intake and Output 12/02/16 12/02/16 12/03/16 15:00 23:00 07:00 Intake Total 800 ml 700 ml 800 ml Output Total 6400 ml Balance 800 ml 700 ml -5600 ml Exam Constitutional: alert, oriented, well developed Psych: nl mood/affect, no complaints Head: atraumatic, normocephalic Eyes: EOMI, PERRL, nl conjunctiva, nl lids, nl sclera ENMT: nl external ears & nose, nl lips & teeth, nl nasal mucosa & septum Neck: non-tender, supple Respiratory: clear to auscultation, normal air movement Cardiovascular: nl pulses, regular rate and rhythm Gastrointestinal: nl liver, spleen, non-tender, soft Musculoskeletal: nl extremities to inspection, nl gait and stance Extremities: normal pulses 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: METAL BASE BLOCKER 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, nl mental status, nl speech, nl strength Skin: nl turgor, No rash or lesions Lymph: nl lymph nodes Results Result Diagram: 12/03/16 0550 12/03/16 0550 Results 24 hrs Laboratory Tests Test 12/02/16 21:15 12/03/16 02:43 12/03/16 05:50 12/03/16 08:28 Bedside Glucose 179 172 203 Anion Gap 20 H Basophils # 0.0 Basophils % 0.5 Blood Morphology Comment Blood Urea Nitrogen 52 H Calcium Level 7.8 L Carbon Dioxide Level 21 Chloride Level 94 L Creatinine 5.17 H Eosinophils # 0.2 Eosinophils % 2.9 Glucose Level 196 Hematocrit 29.2 L Hemoglobin 9.7 L Lymphocytes # 0.8 Lymphocytes % 9.5 L Mean Corpuscular Hemoglobin 29.2 Mean Corpuscular Hemoglobin Concent 33.2 Mean Corpuscular Volume 87.8 Mean Platelet Volume 6.7 L Monocytes # 1.0 H Monocytes % 11.3 H Neutrophils # 6.5 Neutrophils % 75.8 Nucleated Red Blood Cells # 0.0 Nucleated Red Blood Cells % 0.0 Platelet Count 190 Potassium Level 4.8 Red Blood Count 3.33 L Red Cell Distribution Width 19.6 H Sodium Level 130 L White Blood Count 8.5 # Test 12/03/16 11:37 12/03/16 17:08 Bedside Glucose 177 186 Medications Medications Current Medications Lorazepam (Ativan) 0.5 mg Q8H PRN PO ANXIETY Last administered on 12/03/16 05: 37; Admin Dose 0.5 MG; Start 11/20/16 at 12:00 Ondansetron HCl (Zofran Inj) 4 mg Q6H PRN IV NAUSEA AND/OR VOMITING Last administered on 11/23/16 05:32; Admin Dose 4 MG; Start 11/20/16 at 12:00 Aspirin (Aspirin) 81 mg DAILY PO Last administered on 12/03/16 08:58; Admin Dose 81 MG; Start 11/21/16 at 09:00 Nitroglycerin (Nitroglycerin (Sl Tab) 0.4 Mg) 1 tab Q5M PRN SL CHEST PAIN; Start 11/20/16 at 12:00 Acetaminophen (Tylenol Tab) 650 mg Q6H PRN PO PAIN LEVEL 1-3 OR FEVER; Start at 12:00 Morphine Sulfate (morphine) 2 mg Q4H PRN IV PAIN LEVEL 7-10 Last administered on 12/03/16 12:26; Admin Dose 2 MG; Start 11/20/16 at 12:00 Zolpidem Tartrate (Ambien) 5 mg QHS PRN PO INSOMNIA; Start 11/20/16 at 12:00 Pantoprazole (Protonix Tab) 40 mg DAILY@06 PO Last administered on 12/03/16 05 :37; Admin Dose 40 MG; Start 11/21/16 at 06:00 Miscellaneous Information 1 ea NOTE XX ; Start 11/20/16 at 12:30 Glucose (Glutose) 15 gm Q15M PRN PO DECREASED GLUCOSE; Start 11/20/16 at 12:30 Glucose (Glutose) 22.5 gm Q15M PRN PO DECREASED GLUCOSE; Start 11/20/16 at 12: 30 Dextrose (D50w Syringe) 25 ml Q15M PRN IV DECREASED GLUCOSE; Start 11/20/16 at 12:30 Dextrose (D50w Syringe) 50 ml Q15M PRN IV DECREASED GLUCOSE; Start 11/20/16 at 12:30 Glucagon (Glucagen) 1 mg Q15M PRN IM DECREASED GLUCOSE; Start 11/20/16 at 12:30 Glucose (Glutose) 15 gm Q15M PRN BUCCAL DECREASED GLUCOSE; Start 11/20/16 at 12 :30 Levothyroxine Sodium (Synthroid) 125 mcg DAILY@06 PO Last administered on 05:37; Admin Dose 125 MCG; Start 11/22/16 at 06:00 Guaifenesin (Robitussin Liquid Cup) 100 mg Q6H PRN PO COUGH Last administered on 11/25/16 21:58; Admin Dose 100 MG; Start 11/23/16 at 16:30 IV Flush (NS 10 ml) 10 ml PRN PRN IV IV PROTOCOL; Start 11/24/16 at 15:30 Insulin Glargine (Lantus) 15 unit HS SC Last administered on 11/30/16 21:25; Admin Dose 15 UNIT; Start 11/26/16 at 21:00 Midodrine 5 mg 5 mg BID@09,17 PRN PO sbp<80 Last administered on 11/28/16t 19:48 ; Admin Dose 5 MG; Start 11/28/16 at 17:00 Albumin Human (Albumin Human 25%) 100 ml @ 100 mls/hr ONCE PRN IV after paracentesis; Start 12/02/16 at 02:00 LOR MASON MD Dec 03, 2016 17:18
--- NOTE | 2016-12-03 18:35 | PN ---
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 (5) Hypotension Status: Resolved (6) Anemia Status: Chronic Qualifiers: Anemia type: iron deficiency Assessment/Plan [id number] hd per plan Subjective 24 Hr Interval Summary Eyes: no complaints ENT: no complaints Respiratory: no complaints Exam/Review of Systems Vital Signs Vitals Vital Signs Date Time Temp Pulse Resp B/P Pulse Ox O2 Delivery O2 Flow Rate FiO2 12/03/16 16:06 100 12/03/16 16:00 97.9 17 119/49 100 Intake and Output 12/02/16 12/02/16 12/03/16 15:00 23:00 07:00 Intake Total 800 ml 700 ml 800 ml Output Total 6400 ml Balance 800 ml 700 ml -5600 ml Exam Constitutional: alert, oriented Psych: no complaints Eyes: nl conjunctiva ENMT: nl external ears & nose Neck: supple Respiratory: clear to auscultation Cardiovascular: regular rate and rhythm Gastrointestinal: soft Results Result Diagram: 12/03/16 0550 12/03/16 0550 Results 24 hrs Laboratory Tests Test 12/02/16 21:15 12/03/16 02:43 12/03/16 05:50 12/03/16 08:28 Bedside Glucose 179 172 203 Anion Gap 20 H Basophils # 0.0 Basophils % 0.5 Blood Morphology Comment Blood Urea Nitrogen 52 H Calcium Level 7.8 L Carbon Dioxide Level 21 Chloride Level 94 L Creatinine 5.17 H Eosinophils # 0.2 Eosinophils % 2.9 Glucose Level 196 Hematocrit 29.2 L Hemoglobin 9.7 L Lymphocytes # 0.8 Lymphocytes % 9.5 L Mean Corpuscular Hemoglobin 29.2 Mean Corpuscular Hemoglobin Concent 33.2 Mean Corpuscular Volume 87.8 Mean Platelet Volume 6.7 L Monocytes # 1.0 H Monocytes % 11.3 H Neutrophils # 6.5 Neutrophils % 75.8 Nucleated Red Blood Cells # 0.0 Nucleated Red Blood Cells % 0.0 Platelet Count 190 Potassium Level 4.8 Red Blood Count 3.33 L Red Cell Distribution Width 19.6 H Sodium Level 130 L White Blood Count 8.5 # Test 12/03/16 11:37 12/03/16 17:08 Bedside Glucose 177 186 Medications Medications Current Medications Lorazepam (Ativan) 0.5 mg Q8H PRN PO ANXIETY Last administered on 12/03/16 05: 37; Admin Dose 0.5 MG; Start 11/20/16 at 12:00 Ondansetron HCl (Zofran Inj) 4 mg Q6H PRN IV NAUSEA AND/OR VOMITING Last administered on 11/23/16 05:32; Admin Dose 4 MG; Start 11/20/16 at 12:00 Aspirin (Aspirin) 81 mg DAILY PO Last administered on 12/03/16 08:58; Admin Dose 81 MG; Start 11/21/16 at 09:00 Nitroglycerin (Nitroglycerin (Sl Tab) 0.4 Mg) 1 tab Q5M PRN SL CHEST PAIN; Start 11/20/16 at 12:00 Acetaminophen (Tylenol Tab) 650 mg Q6H PRN PO PAIN LEVEL 1-3 OR FEVER; Start at 12:00 Morphine Sulfate (morphine) 2 mg Q4H PRN IV PAIN LEVEL 7-10 Last administered on 12/03/16 12:26; Admin Dose 2 MG; Start 11/20/16 at 12:00 Zolpidem Tartrate (Ambien) 5 mg QHS PRN PO INSOMNIA; Start 11/20/16 at 12:00 Pantoprazole (Protonix Tab) 40 mg DAILY@06 PO Last administered on 12/03/16 05 :37; Admin Dose 40 MG; Start 11/21/16 at 06:00 Miscellaneous Information 1 ea NOTE XX ; Start 11/20/16 at 12:30 Glucose (Glutose) 15 gm Q15M PRN PO DECREASED GLUCOSE; Start 11/20/16 at 12:30 Glucose (Glutose) 22.5 gm Q15M PRN PO DECREASED GLUCOSE; Start 11/20/16 at 12: 30 Dextrose (D50w Syringe) 25 ml Q15M PRN IV DECREASED GLUCOSE; Start 11/20/16 at 12:30 Dextrose (D50w Syringe) 50 ml Q15M PRN IV DECREASED GLUCOSE; Start 11/20/16 at 12:30 Glucagon (Glucagen) 1 mg Q15M PRN IM DECREASED GLUCOSE; Start 11/20/16 at 12:30 Glucose (Glutose) 15 gm Q15M PRN BUCCAL DECREASED GLUCOSE; Start 11/20/16 at 12 :30 Levothyroxine Sodium (Synthroid) 125 mcg DAILY@06 PO Last administered on 05:37; Admin Dose 125 MCG; Start 11/22/16 at 06:00 Guaifenesin (Robitussin Liquid Cup) 100 mg Q6H PRN PO COUGH Last administered on 11/25/16 21:58; Admin Dose 100 MG; Start 11/23/16 at 16:30 IV Flush (NS 10 ml) 10 ml PRN PRN IV IV PROTOCOL; Start 11/24/16 at 15:30 Insulin Glargine (Lantus) 15 unit HS SC Last administered on 11/30/16 21:25; Admin Dose 15 UNIT; Start 11/26/16 at 21:00 Midodrine 5 mg 5 mg BID@09,17 PRN PO sbp<80 Last administered on 11/28/16 19:48 ; Admin Dose 5 MG; Start 11/28/16 at 17:00 Albumin Human (Albumin Human 25%) 100 ml @ 100 mls/hr ONCE PRN IV after paracentesis; Start 12/02/16 at 02:00 BRENDON MARSHALL MD Dec 03, 2016 18:35
--- NOTE | 2016-12-03 19:14 | CONS ---
DATE OF ADMISSION: 11/20/2016 DATE OF CONSULTATION: 12/02/2016 TYPE OF CONSULTATION: Gastroenterology. HISTORY OF PRESENT ILLNESS: The patient is a 66-year-old male with a history of ischemic cardiomyop athy, EF of 20%, end-stage renal disease on dialysis, has refractory ascites, is getting paracentesi s every 4 or 5 days as an outpatient, wants a permanent drainage procedure. 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 OBJECTIVE: VITAL SIGNS: Stable. ABDOMEN: Benign except for the ascites. CARDIOVASCULAR: Grossly within normal limits. CENTRAL NERVOUS SYSTEM: Grossly within normal limits. ASSESSMENT: 1. Refractory ascites. 2. Ischemic cardiomyopathy. 3. End-stage renal disease. 4. Cirrhosis of liver. Plan at this point is to proceed with paracentesis to make him comfortable. I have discussed with t he radiologist ____ should have some drainage procedures, and they have agreed, and IR is planning t o do it. Dictated By: LOR DURAN/RAYNA Conf#: [id number] DID#: [id number]
--- NOTE | 2016-12-03 21:19 | RADRPT ---
PROCEDURE: CT Head without contrast. CLINICAL INDICATION: Trauma with pain TECHNIQUE: The study was performed utilizing a GE 64-slice multidetector CT scanner. Direct spiral axial CT images of the brain were obtained from the vertex to the skull base without contrast. The CTDI vol is 44.19 mGy and the DLP is 720.23 mGy-cm. The images were reviewed on a PACS workstation. COMPARISON: No prior studies are available for comparison. FINDINGS: Mild to moderate diffuse atrophy is seen with a compensatory ventricular enlargement. Mild white ma tter disease in the periventricular and deep white matter is seen. The merlos-white matter differenti ation is maintained. No intra or extra-axial fluid collection or mass effect or shift in the midlin e structures is seen. The visualized paranasal sinuses, mastoid air cells, orbits, and calvarium ar e unremarkable. Vascular calcifications are seen. IMPRESSION: 1. No acute intracranial pathology. 2. Mild to moderate diffuse volume loss and mild chronic microvascular ischemic changes. RPTAT: HPNM Physician Bryson Date Time Electronically viewed and signed by Physician Bryson on 12/03/2016 21:19 /
[2016-12-03] MEDS: ACETAMINOPHEN 325 MG TAB PO PRN (22:25)
[2016-12-03] MEDS: INSULIN GLARGINE [LANtus] 3 ML PEN SC SCH (22:29)
[2016-12-04] VITALS (23 sets, daily range): BP systolic 94–152; BP diastolic 36–87; PULSE 73–110; RESP 15–21
[2016-12-04] MEDS: morphine 2 MG INJ IV PRN ×7 (00:24→19:52)
[2016-12-04] MEDS: LEVOTHYROXINE 125 MCG TAB PO SCH (05:40)
[2016-12-04] MEDS: PANTOPRAZOLE (EC) 40 MG TAB PO SCH (05:40)
[2016-12-04 06:12] LABS: BASOPHIL # 0.1 10^3/ul (0.0-0.1); BASOPHILS % 0.8 % (0.0-2.0); EOSINOPHILS # 0.2 10^3/ul (0.0-0.5); HEMOGLOBIN 10.1 g/dl (14.0-18.0); MEAN CORPUSCULAR HEMOGLOBIN 29.4 pg (29.0-33.0); MEAN CORPUSCULAR HGB CONC 33.7 g/dl (32.0-37.0); MEAN CORPUSCULAR VOLUME 87.2 fl (82.0-101.0); MEAN PLATELET VOLUME 6.8 fl (7.4-10.4); MONOCYTE # 1.1 10^3/ul (0.3-0.9); MONOCYTES % 9.9 % (0.0-11.0); NEUTROPHIL # 8.4 10^3/ul (1.6-7.5); NEUTROPHILS % 78.3 % (39.0-77.0); PLATELET COUNT 231 10^3/UL (140-440); RED BLOOD COUNT 3.44 10^6/ul (4.70-6.10); RED CELL DISTRIBUTION WIDTH 19.6 % (11.5-14.5); UNCORRECTED WBC 10.7 10^3/ul (4.8-10.8); WHITE BLOOD COUNT 10.7 10^3/ul (4.8-10.8)
[2016-12-04 06:21] LABS: CONDITION 1; LH ANALYZER COMMENTS 1
[2016-12-04 06:52] LABS: CREATININE 6.7 mg/dl (0.61-1.24)
[2016-12-04 06:53] LABS: CALCIUM 7.8 mg/dl (8.4-10.2)
[2016-12-04] MEDS: ASPIRIN 81 MG TAB PO SCH (08:42)
[2016-12-04] MEDS: INSULIN ASPART [NOVOLOG] 3 ML PEN SC SCH ×4 (08:46→20:53)
[2016-12-04] MEDS: MIDODRINE 5 MG TAB PO PRN (09:00)
[2016-12-04] MEDS: ALBUMIN HUMAN 25% 100 ML IV PRN ×2 (10:57→10:58)
--- NOTE | 2016-12-04 13:29 | CONS ---
Date/Time of Note Date/Time of Note DATE: 12/04/16 TIME: 13:27 Assessment/Plan Assessment/Plan Additional Assessment/Plan Hypotension, improving AV fistula stenosis status post venoplasty Acute decompensated systolic and diastolic heart failure Cardiomyopathy, likely ischemic and nonischemic in origin with an ejection fraction less than 20%. (Denied cardiac transplant at [facility]) Biventricular pacemaker and ICD Mitral and tricuspid valve regurgitation. Severe pulmonary hypertension. End-stage renal disease on hemodialysis Ascites status post paracentesis -Patient status post repeat paracentesis. Shortness of breath is better now as well as after hemodialysis but still present. Undergoing evaluation for abdominal drain procedure. Consultation Date/Type/Reason Admit Date/Time Nov 20, 2016 at 09:34 Initial Consult Date 11/21/16 Type of Consultation: cv Referring Provider: DEMETRA BRUNO MD 24 HR Interval Summary Free Text/Dictation Denies chest pain, shortness of breath is about the same Exam/Review of Systems Vital Signs Vitals Vital Signs Date Time Temp Pulse Resp B/P Pulse Ox O2 Delivery O2 Flow Rate FiO2 12/04/16 12:33 108 12/04/16 12:13 97.8 18 109/59 95 12/04/16 08:50 Room Air Intake and Output 12/03/16 12/03/16 12/04/16 15:00 23:00 07:00 Intake Total 800 ml 350 ml Output Total 100 ml Balance 700 ml 350 ml Exam Constitutional: alert, oriented Head: other (Laceration to face) Respiratory: other (Coarse breath sounds bilaterally, no wheezing) Cardiovascular: other (S1-S2 heard), regular rate and rhythm Gastrointestinal: ascites, bowel sounds, distended, non-tender, soft Extremities: edema Results Result Diagram: 12/04/16 0534 12/04/16 0534 Results 24 hrs Laboratory Tests Test 12/03/16 17:08 12/03/16 19:34 12/03/16 22:09 12/04/16 05:34 Bedside Glucose 186 183 233 H Anion Gap 22 H Basophils # 0.1 Basophils % 0.8 Blood Morphology Comment Blood Urea Nitrogen 66 H Calcium Level 7.8 L Carbon Dioxide Level 18 L Chloride Level 98 Creatinine 6.70 H Eosinophils # 0.2 Eosinophils % 2.0 Glucose Level 163 Hematocrit 30.0 L Hemoglobin 10.1 L Lymphocytes # 1.0 Lymphocytes % 9.0 L Mean Corpuscular Hemoglobin 29.4 Mean Corpuscular Hemoglobin Concent 33.7 Mean Corpuscular Volume 87.2 Mean Platelet Volume 6.8 L Monocytes # 1.1 H Monocytes % 9.9 Neutrophils # 8.4 H Neutrophils % 78.3 H Nucleated Red Blood Cells # 0.0 Nucleated Red Blood Cells % 0.0 Platelet Count 231 # Potassium Level 6.0 H Red Blood Count 3.44 L Red Cell Distribution Width 19.6 H Sodium Level 132 L White Blood Count 10.7 # Test 12/04/16 07:45 12/04/16 11:42 Bedside Glucose 200 178 Medications Medications Current Medications Lorazepam (Ativan) 0.5 mg Q8H PRN PO ANXIETY Last administered on 12/03/16 05: 37; Admin Dose 0.5 MG; Start 11/20/16 at 12:00 Ondansetron HCl (Zofran Inj) 4 mg Q6H PRN IV NAUSEA AND/OR VOMITING Last administered on 11/23/16 05:32; Admin Dose 4 MG; Start 11/20/16 at 12:00 Aspirin (Aspirin) 81 mg DAILY PO Last administered on 12/04/16 08:42; Admin Dose 81 MG; Start 11/21/16 at 09:00 Nitroglycerin (Nitroglycerin (Sl Tab) 0.4 Mg) 1 tab Q5M PRN SL CHEST PAIN; Start 11/20/16 at 12:00 Acetaminophen (Tylenol Tab) 650 mg Q6H PRN PO PAIN LEVEL 1-3 OR FEVER Last administered on 12/03/16 22:25; Admin Dose 650 MG; Start 11/20/16 at 12:00 Zolpidem Tartrate (Ambien) 5 mg QHS PRN PO INSOMNIA; Start 11/20/16 at 12:00 Pantoprazole (Protonix Tab) 40 mg DAILY@06 PO Last administered on 12/04/16 05 :40; Admin Dose 40 MG; Start 11/21/16 at 06:00 Miscellaneous Information 1 ea NOTE XX ; Start 11/20/16 at 12:30 Glucose (Glutose) 15 gm Q15M PRN PO DECREASED GLUCOSE; Start 11/20/16 at 12:30 Glucose (Glutose) 22.5 gm Q15M PRN PO DECREASED GLUCOSE; Start 11/20/16 at 12: 30 Dextrose (D50w Syringe) 25 ml Q15M PRN IV DECREASED GLUCOSE; Start 11/20/16 at 12:30 Dextrose (D50w Syringe) 50 ml Q15M PRN IV DECREASED GLUCOSE; Start 11/20/16 at 12:30 Glucagon (Glucagen) 1 mg Q15M PRN IM DECREASED GLUCOSE; Start 11/20/16 at 12:30 Glucose (Glutose) 15 gm Q15M PRN BUCCAL DECREASED GLUCOSE; Start 11/20/16 at 12 :30 Levothyroxine Sodium (Synthroid) 125 mcg DAILY@06 PO Last administered on 05:40; Admin Dose 125 MCG; Start 11/22/16 at 06:00 Guaifenesin (Robitussin Liquid Cup) 100 mg Q6H PRN PO COUGH Last administered on 11/25/16 21:58; Admin Dose 100 MG; Start 11/23/16 at 16:30 IV Flush (NS 10 ml) 10 ml PRN PRN IV IV PROTOCOL; Start 11/24/16 at 15:30 Insulin Glargine (Lantus) 15 unit HS SC Last administered on 12/03/16 22:29; Admin Dose 15 UNIT; Start 11/26/16 at 21:00 Midodrine 5 mg 5 mg BID@17 PRN PO sbp<80 Last administered on 12/04/16 09: 00; Admin Dose 5 MG; Start 11/28/16 at 17:00 Albumin Human (Albumin Human 25%) 100 ml @ 100 mls/hr ONCE PRN IV after paracentesis; Start 12/02/16 at 02:00 Morphine Sulfate (morphine) 2 mg Q3H PRN IV PAIN LEVEL 7-10 Last administered on 12/04/16 12:45; Admin Dose 2 MG; Start 12/04/16 at 10:00 Harpreet Cee DO Dec 04, 2016 13:29
--- NOTE | 2016-12-04 13:56 | RADRPT ---
PROCEDURE: XR Left Hip. CLINICAL INDICATION: Fall. TECHNIQUE: AP and frog lateral views of the left hip were performed. COMPARISON: None. FINDINGS: There is normal mineralization and alignment. No acute fracture or osseous lesion is identified. The joint spaces well maintained. The soft tissues are unremarkable. IMPRESSION: 1. The there is no evidence of an acute fracture or dislocation. 2. There are vascular calcifications in the common femoral artery, left superficial the left profun da femoris arteries. RPTAT:AAJJ Physician Santos Date Time Electronically viewed and signed by Cristo Mccarthy Physician on 12/04/2016 13:55 [facility]/
--- NOTE | 2016-12-04 18:11 | PN ---
Date/Time of Note Date/Time of Note DATE: 12/04/16 TIME: 18:08 Assessment/Plan VTE Prophylaxis VTE Prophylaxis Intervention: SCD's Lines/Catheters IV Catheter Type (from Nrs): PICC Line Central line still needed: Yes Urinary Cath still in place: No Assessment/Plan Chief Complaint/Hosp Course ASSESSMENT AND PLAN: - Status post mechanical fall yesterday most likely secondary to low blood pressure. Brain CT is negative, hip x-ray is negative for fracture. - Severe hypotension requiring pressors, resolved. - Congestive heart failure exacerbation with ejection fraction of 20% per last echo. Continue to remove fluids with hemodialysis. - Ascites, status post paracentesis on11/20, 12/02. Patient is currently undergoing evaluation for drain placement. - End-stage renal disease, hemodialysis-dependent. Dr. Maddox is following from nephrology standpoint. Continue patient on hemodialysis. - Coronary artery disease status post coronary artery bypass graft. Continue patient on aspirin and Coreg. Dr. Cee is following from cardiology standpoint. - Hypothyroidism. TSH is 14, Synthroid increased to 125. - Diabetes mellitus type 2. Continue to monitor blood sugar with mild algorithm scale, NovoLog coverage. - Hemodialysis access, status post right AV fistulogram by Dr. Loco, vascular surgery on 11/21. - Liver cirrhosis and portal hypertension. Dr. Kirkpatrick is following in gastroenterology consultation. Continue Protonix for peptic ulcer disease prophylaxis. Further recommendations based on clinical course. Plan of care discussed with Dr. Vick. Problems: Subjective 24 Hr Interval Summary Free Text/Dictation Patient is status post fall yesterday, no arrhythmia noted, patient is currently is awake alert and oriented, left eyebrow abrasion and bruising. Exam/Review of Systems Vital Signs Vitals Vital Signs Date Time Temp Pulse Resp B/P Pulse Ox O2 Delivery O2 Flow Rate FiO2 12/04/16 16:51 93 12/04/16 15:45 97.9 18 104/58 100 12/04/16 08:50 Room Air Intake and Output 12/03/16 12/03/16 12/04/16 15:00 23:00 07:00 Intake Total 800 ml 350 ml Output Total 100 ml Balance 700 ml 350 ml Exam GENERAL: well-developed, well-nourished male, currently is awake, alert. Left eyebrow abrasion and bruising. HEENT: Head is atraumatic, normocephalic. NECK: Supple. JVD is present, no cervical lymphadenopathy. CHEST: Lungs are clear bilaterally, slightly diminished at the bases. CARDIOVASCULAR: Regular rhythm and rate, normal S1, S2. No murmurs, gallops, clicks, rubs noted. The patient has a left chest permanent pacemaker with AICD. GASTROINTESTINAL: Abdomen is protuberant, soft, slightly distended, nontender. Bowel sounds present. No guarding, no rebound tenderness. SKIN: No rash, petechiae. EXTREMITIES: The patient has bilateral lower extremity edema, 3+. NEUROLOGIC: The patient is awake, alert and oriented x3. Results Result Diagram: 12/04/16 0534 12/04/16 0534 Results 24 hrs Laboratory Tests Test 12/03/16 19:34 12/03/16 22:09 12/04/16 05:34 12/04/16 07:45 Bedside Glucose 183 233 H 200 Anion Gap 22 H Basophils # 0.1 Basophils % 0.8 Blood Morphology Comment Blood Urea Nitrogen 66 H Calcium Level 7.8 L Carbon Dioxide Level 18 L Chloride Level 98 Creatinine 6.70 H Eosinophils # 0.2 Eosinophils % 2.0 Glucose Level 163 Hematocrit 30.0 L Hemoglobin 10.1 L Lymphocytes # 1.0 Lymphocytes % 9.0 L Mean Corpuscular Hemoglobin 29.4 Mean Corpuscular Hemoglobin Concent 33.7 Mean Corpuscular Volume 87.2 Mean Platelet Volume 6.8 L Monocytes # 1.1 H Monocytes % 9.9 Neutrophils # 8.4 H Neutrophils % 78.3 H Nucleated Red Blood Cells # 0.0 Nucleated Red Blood Cells % 0.0 Platelet Count 231 # Potassium Level 6.0 H Red Blood Count 3.44 L Red Cell Distribution Width 19.6 H Sodium Level 132 L White Blood Count 10.7 # Test 12/04/16 11:42 12/04/16 17:15 Bedside Glucose 178 204 Medications Medications Current Medications Lorazepam (Ativan) 0.5 mg Q8H PRN PO ANXIETY Last administered on 12/03/16 05: 37; Admin Dose 0.5 MG; Start 11/20/16 at 12:00 Ondansetron HCl (Zofran Inj) 4 mg Q6H PRN IV NAUSEA AND/OR VOMITING Last administered on 11/23/16 05:32; Admin Dose 4 MG; Start 11/20/16 at 12:00 Aspirin (Aspirin) 81 mg DAILY PO Last administered on 12/04/16 08:42; Admin Dose 81 MG; Start 11/21/16 at 09:00 Nitroglycerin (Nitroglycerin (Sl Tab) 0.4 Mg) 1 tab Q5M PRN SL CHEST PAIN; Start 11/20/16 at 12:00 Acetaminophen (Tylenol Tab) 650 mg Q6H PRN PO PAIN LEVEL 1-3 OR FEVER Last administered on 12/03/16 22:25; Admin Dose 650 MG; Start 11/20/16 at 12:00 Zolpidem Tartrate (Ambien) 5 mg QHS PRN PO INSOMNIA; Start 11/20/16 at 12:00 Pantoprazole (Protonix Tab) 40 mg DAILY@06 PO Last administered on 12/04/16 05 :40; Admin Dose 40 MG; Start 11/21/16 at 06:00 Miscellaneous Information 1 ea NOTE XX ; Start 11/20/16 at 12:30 Glucose (Glutose) 15 gm Q15M PRN PO DECREASED GLUCOSE; Start 11/20/16 at 12:30 Glucose (Glutose) 22.5 gm Q15M PRN PO DECREASED GLUCOSE; Start 11/20/16 at 12: 30 Dextrose (D50w Syringe) 25 ml Q15M PRN IV DECREASED GLUCOSE; Start 11/20/16 at 12:30 Dextrose (D50w Syringe) 50 ml Q15M PRN IV DECREASED GLUCOSE; Start 11/20/16 at 12:30 Glucagon (Glucagen) 1 mg Q15M PRN IM DECREASED GLUCOSE; Start 11/20/16 at 12:30 Glucose (Glutose) 15 gm Q15M PRN BUCCAL DECREASED GLUCOSE; Start 11/20/16 at 12 :30 Levothyroxine Sodium (Synthroid) 125 mcg DAILY@06 PO Last administered on 05:40; Admin Dose 125 MCG; Start 11/22/16 at 06:00 Guaifenesin (Robitussin Liquid Cup) 100 mg Q6H PRN PO COUGH Last administered on 11/25/16 21:58; Admin Dose 100 MG; Start 11/23/16 at 16:30 IV Flush (NS 10 ml) 10 ml PRN PRN IV IV PROTOCOL; Start 11/24/16 at 15:30 Insulin Glargine (Lantus) 15 unit HS SC Last administered on 12/03/16 22:29; Admin Dose 15 UNIT; Start 11/26/16 at 21:00 Midodrine 5 mg 5 mg BID@09,17 PRN PO sbp<80 Last administered on 12/04/16 09: 00; Admin Dose 5 MG; Start 11/28/16 at 17:00 Albumin Human (Albumin Human 25%) 100 ml @ 100 mls/hr ONCE PRN IV after paracentesis; Start 12/02/16 at 02:00 Morphine Sulfate (morphine) 2 mg Q3H PRN IV PAIN LEVEL 7-10 Last administered on 12/04/16 15:52; Admin Dose 2 MG; Start 12/04/16 at 10:00 DICKSON GROSSMAN Dec 04, 2016 18:11
--- NOTE | 2016-12-04 18:19 | CONS ---
Date/Time of Note Date/Time of Note DATE: 12/04/16 TIME: 18:15 Assessment/Plan Assessment/Plan Chief Complaint/Hosp Course Next HD in AM Problems: Additional Assessment/Plan Pt seems to have stabelized Consultation Date/Type/Reason Admit Date/Time Nov 20, 2016 at 09:34 Initial Consult Date 11/21/16 Type of Consultation: renal Referring Provider: DEMETRA BRUNO MD 24 HR Interval Summary Free Text/Dictation more alert & RESPONSIVE Exam/Review of Systems Vital Signs Vitals Vital Signs Date Time Temp Pulse Resp B/P Pulse Ox O2 Delivery O2 Flow Rate FiO2 12/04/16 18:10 93 12/04/16 15:45 97.9 18 104/58 100 12/04/16 08:50 Room Air Intake and Output 12/03/16 12/03/16 12/04/16 15:00 23:00 07:00 Intake Total 800 ml 350 ml Output Total 100 ml Balance 700 ml 350 ml Exam Constitutional: alert, oriented, well developed Psych: nl mood/affect, no complaints Head: atraumatic, normocephalic Eyes: EOMI, PERRL, nl conjunctiva, nl lids, nl sclera ENMT: nl external ears & nose, nl lips & teeth, nl nasal mucosa & septum Neck: non-tender, supple Respiratory: clear to auscultation, normal air movement Cardiovascular: nl pulses, regular rate and rhythm Gastrointestinal: nl liver, spleen, non-tender, soft Musculoskeletal: nl extremities to inspection, nl gait and stance, other (avf lt arm) Extremities: normal pulses 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: DOCKMASTER 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, nl mental status, nl speech, nl strength Results SK is high Pt seen on dialysis Result Diagram: 12/04/16 0534 12/04/16 0534 Results 24 hrs Laboratory Tests Test 12/03/16 19:34 12/03/16 22:09 12/04/16 05:34 12/04/16 07:45 Bedside Glucose 183 233 H 200 Anion Gap 22 H Basophils # 0.1 Basophils % 0.8 Blood Morphology Comment Blood Urea Nitrogen 66 H Calcium Level 7.8 L Carbon Dioxide Level 18 L Chloride Level 98 Creatinine 6.70 H Eosinophils # 0.2 Eosinophils % 2.0 Glucose Level 163 Hematocrit 30.0 L Hemoglobin 10.1 L Lymphocytes # 1.0 Lymphocytes % 9.0 L Mean Corpuscular Hemoglobin 29.4 Mean Corpuscular Hemoglobin Concent 33.7 Mean Corpuscular Volume 87.2 Mean Platelet Volume 6.8 L Monocytes # 1.1 H Monocytes % 9.9 Neutrophils # 8.4 H Neutrophils % 78.3 H Nucleated Red Blood Cells # 0.0 Nucleated Red Blood Cells % 0.0 Platelet Count 231 # Potassium Level 6.0 H Red Blood Count 3.44 L Red Cell Distribution Width 19.6 H Sodium Level 132 L White Blood Count 10.7 # Test 12/04/16 11:42 12/04/16 17:15 Bedside Glucose 178 204 Medications Medications Current Medications Lorazepam (Ativan) 0.5 mg Q8H PRN PO ANXIETY Last administered on 12/03/16 05: 37; Admin Dose 0.5 MG; Start 11/20/16 at 12:00 Ondansetron HCl (Zofran Inj) 4 mg Q6H PRN IV NAUSEA AND/OR VOMITING Last administered on 11/23/16 05:32; Admin Dose 4 MG; Start 11/20/16 at 12:00 Aspirin (Aspirin) 81 mg DAILY PO Last administered on 12/04/16 08:42; Admin Dose 81 MG; Start 11/21/16 at 09:00 Nitroglycerin (Nitroglycerin (Sl Tab) 0.4 Mg) 1 tab Q5M PRN SL CHEST PAIN; Start 11/20/16 at 12:00 Acetaminophen (Tylenol Tab) 650 mg Q6H PRN PO PAIN LEVEL 1-3 OR FEVER Last administered on 12/03/16 22:25; Admin Dose 650 MG; Start 11/20/16 at 12:00 Zolpidem Tartrate (Ambien) 5 mg QHS PRN PO INSOMNIA; Start 11/20/16 at 12:00 Pantoprazole (Protonix Tab) 40 mg DAILY@06 PO Last administered on 12/04/16 05 :40; Admin Dose 40 MG; Start 11/21/16 at 06:00 Miscellaneous Information 1 ea NOTE XX ; Start 11/20/16 at 12:30 Glucose (Glutose) 15 gm Q15M PRN PO DECREASED GLUCOSE; Start 11/20/16 at 12:30 Glucose (Glutose) 22.5 gm Q15M PRN PO DECREASED GLUCOSE; Start 11/20/16 at 12: 30 Dextrose (D50w Syringe) 25 ml Q15M PRN IV DECREASED GLUCOSE; Start 11/20/16 at 12:30 Dextrose (D50w Syringe) 50 ml Q15M PRN IV DECREASED GLUCOSE; Start 11/20/16 at 12:30 Glucagon (Glucagen) 1 mg Q15M PRN IM DECREASED GLUCOSE; Start 11/20/16 at 12:30 Glucose (Glutose) 15 gm Q15M PRN BUCCAL DECREASED GLUCOSE; Start 11/20/16 at 12 :30 Levothyroxine Sodium (Synthroid) 125 mcg DAILY@06 PO Last administered on 05:40; Admin Dose 125 MCG; Start 11/22/16 at 06:00 Guaifenesin (Robitussin Liquid Cup) 100 mg Q6H PRN PO COUGH Last administered on 11/25/16 21:58; Admin Dose 100 MG; Start 11/23/16 at 16:30 IV Flush (NS 10 ml) 10 ml PRN PRN IV IV PROTOCOL; Start 11/24/16 at 15:30 Insulin Glargine (Lantus) 15 unit HS SC Last administered on 12/03/16 22:29; Admin Dose 15 UNIT; Start 11/26/16 at 21:00 Midodrine 5 mg 5 mg BID@,17 PRN PO sbp<80 Last administered on 12/04/16 09: 00; Admin Dose 5 MG; Start 11/28/16 at 17:00 Albumin Human (Albumin Human 25%) 100 ml @ 100 mls/hr ONCE PRN IV after paracentesis; Start 12/02/16 at 02:00 Morphine Sulfate (morphine) 2 mg Q3H PRN IV PAIN LEVEL 7-10 Last administered on 12/04/16 15:52; Admin Dose 2 MG; Start 12/04/16 at 10:00 MILADY ANDERSON MD Dec 04, 2016 18:19
--- NOTE | 2016-12-04 19:33 | CONS ---
Date/Time of Note Date/Time of Note DATE: 12/04/16 TIME: 19:33 Assessment/Plan Assessment/Plan Additional Assessment/Plan ASSESSMENT: 1. Refractory ascites. 2. Ischemic cardiomyopathy. 3. End-stage renal disease. 4. Cirrhosis of liver. Plan at this point is to proceed with paracentesis to make him comfortable. I have discussed with the radiologist ____ should have some drainage procedures, and they have agreed, and IR is planning to do it. brain CT negative Hip x ray negative Consultation Date/Type/Reason Admit Date/Time Nov 20, 2016 at 09:34 Initial Consult Date 11/21/16 Type of Consultation: renal Referring Provider: DEMETRA BRUNO MD 24 HR Interval Summary Constitutional: improved Exam/Review of Systems Vital Signs Vitals Vital Signs Date Time Temp Pulse Resp B/P Pulse Ox O2 Delivery O2 Flow Rate FiO2 12/04/16 18:10 93 12/04/16 15:45 97.9 18 104/58 100 12/04/16 08:50 Room Air Intake and Output 12/03/16 12/03/16 12/04/16 15:00 23:00 07:00 Intake Total 800 ml 350 ml Output Total 100 ml Balance 700 ml 350 ml Exam Constitutional: alert, oriented, well developed Psych: nl mood/affect, no complaints Head: atraumatic, normocephalic Eyes: EOMI, PERRL, nl conjunctiva, nl lids, nl sclera ENMT: nl external ears & nose, nl lips & teeth, nl nasal mucosa & septum Neck: non-tender, supple Respiratory: clear to auscultation, normal air movement Cardiovascular: nl pulses, regular rate and rhythm Gastrointestinal: nl liver, spleen, non-tender, soft Musculoskeletal: nl extremities to inspection, nl gait and stance Extremities: normal pulses 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: 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 TECHNICIAN 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, nl mental status, nl speech, nl strength Skin: nl turgor, No rash or lesions Lymph: nl lymph nodes Results Result Diagram: 12/04/16 0534 12/04/16 0534 Results 24 hrs Laboratory Tests Test 12/03/16 19:34 12/03/16 22:09 12/04/16 05:34 12/04/16 07:45 Bedside Glucose 183 233 H 200 Anion Gap 22 H Basophils # 0.1 Basophils % 0.8 Blood Morphology Comment Blood Urea Nitrogen 66 H Calcium Level 7.8 L Carbon Dioxide Level 18 L Chloride Level 98 Creatinine 6.70 H Eosinophils # 0.2 Eosinophils % 2.0 Glucose Level 163 Hematocrit 30.0 L Hemoglobin 10.1 L Lymphocytes # 1.0 Lymphocytes % 9.0 L Mean Corpuscular Hemoglobin 29.4 Mean Corpuscular Hemoglobin Concent 33.7 Mean Corpuscular Volume 87.2 Mean Platelet Volume 6.8 L Monocytes # 1.1 H Monocytes % 9.9 Neutrophils # 8.4 H Neutrophils % 78.3 H Nucleated Red Blood Cells # 0.0 Nucleated Red Blood Cells % 0.0 Platelet Count 231 # Potassium Level 6.0 H Red Blood Count 3.44 L Red Cell Distribution Width 19.6 H Sodium Level 132 L White Blood Count 10.7 # Test 12/04/16 11:42 12/04/16 17:15 Bedside Glucose 178 204 Medications Medications Current Medications Lorazepam (Ativan) 0.5 mg Q8H PRN PO ANXIETY Last administered on 12/03/16 05: 37; Admin Dose 0.5 MG; Start 11/20/16 at 12:00 Ondansetron HCl (Zofran Inj) 4 mg Q6H PRN IV NAUSEA AND/OR VOMITING Last administered on 11/23/16 05:32; Admin Dose 4 MG; Start 11/20/16 at 12:00 Aspirin (Aspirin) 81 mg DAILY PO Last administered on 12/04/16 08:42; Admin Dose 81 MG; Start 11/21/16 at 09:00 Nitroglycerin (Nitroglycerin (Sl Tab) 0.4 Mg) 1 tab Q5M PRN SL CHEST PAIN; Start 11/20/16 at 12:00 Acetaminophen (Tylenol Tab) 650 mg Q6H PRN PO PAIN LEVEL 1-3 OR FEVER Last administered on 12/03/16 22:25; Admin Dose 650 MG; Start 11/20/16 at 12:00 Zolpidem Tartrate (Ambien) 5 mg QHS PRN PO INSOMNIA; Start 11/20/16 at 12:00 Pantoprazole (Protonix Tab) 40 mg DAILY@06 PO Last administered on 12/04/16 05 :40; Admin Dose 40 MG; Start 11/21/16 at 06:00 Miscellaneous Information 1 ea NOTE XX ; Start 11/20/16 at 12:30 Glucose (Glutose) 15 gm Q15M PRN PO DECREASED GLUCOSE; Start 11/20/16 at 12:30 Glucose (Glutose) 22.5 gm Q15M PRN PO DECREASED GLUCOSE; Start 11/20/16 at 12: 30 Dextrose (D50w Syringe) 25 ml Q15M PRN IV DECREASED GLUCOSE; Start 11/20/16 at 12:30 Dextrose (D50w Syringe) 50 ml Q15M PRN IV DECREASED GLUCOSE; Start 11/20/16 at 12:30 Glucagon (Glucagen) 1 mg Q15M PRN IM DECREASED GLUCOSE; Start 11/20/16 at 12:30 Glucose (Glutose) 15 gm Q15M PRN BUCCAL DECREASED GLUCOSE; Start 11/20/16 at 12 :30 Levothyroxine Sodium (Synthroid) 125 mcg DAILY@06 PO Last administered on 05:40; Admin Dose 125 MCG; Start 11/22/16 at 06:00 Guaifenesin (Robitussin Liquid Cup) 100 mg Q6H PRN PO COUGH Last administered on 11/25/16 21:58; Admin Dose 100 MG; Start 11/23/16 at 16:30 IV Flush (NS 10 ml) 10 ml PRN PRN IV IV PROTOCOL; Start 11/24/16 at 15:30 Insulin Glargine (Lantus) 15 unit HS SC Last administered on 12/03/16 22:29; Admin Dose 15 UNIT; Start 11/26/16 at 21:00 Midodrine 5 mg 5 mg BID@17 PRN PO sbp<80 Last administered on 12/04/16 09: 00; Admin Dose 5 MG; Start 11/28/16 at 17:00 Albumin Human (Albumin Human 25%) 100 ml @ 100 mls/hr ONCE PRN IV after paracentesis; Start 12/02/16 at 02:00 Morphine Sulfate (morphine) 2 mg Q3H PRN IV PAIN LEVEL 7-10 Last administered on 12/04/16 18:29; Admin Dose 2 MG; Start 12/04/16 at 10:00 LOR MASON MD Dec 04, 2016 19:33
[2016-12-04] MEDS: INSULIN GLARGINE [LANtus] 3 ML PEN SC SCH (20:52)
[2016-12-05] VITALS (11 sets, daily range): BP systolic 86–115; BP diastolic 47–89; PULSE 98–121; RESP 18–20
[2016-12-05] MEDS: morphine 2 MG INJ IV PRN ×7 (01:33→21:30)
[2016-12-05] MEDS: LEVOTHYROXINE 125 MCG TAB PO SCH (05:37)
[2016-12-05] MEDS: PANTOPRAZOLE (EC) 40 MG TAB PO SCH (05:37)
[2016-12-05 06:32] LABS: BASOPHIL # 0.1 10^3/ul (0.0-0.1); BASOPHILS % 0.8 % (0.0-2.0); EOSINOPHILS # 0.3 10^3/ul (0.0-0.5); EOSINOPHILS % 3.4 % (0.0-7.0); HEMATOCRIT 26.5 % (42.0-52.0); HEMOGLOBIN 8.9 g/dl (14.0-18.0); LYMPHOCYTES # 0.6 10^3/ul (0.8-2.9); LYMPHOCYTES % 6.4 % (15.0-51.0); MEAN CORPUSCULAR HEMOGLOBIN 29.2 pg (29.0-33.0); MEAN CORPUSCULAR HGB CONC 33.4 g/dl (32.0-37.0); MEAN CORPUSCULAR VOLUME 87.3 fl (82.0-101.0); MEAN PLATELET VOLUME 6.9 fl (7.4-10.4); MONOCYTE # 0.8 10^3/ul (0.3-0.9); MONOCYTES % 8.6 % (0.0-11.0); NEUTROPHIL # 7.7 10^3/ul (1.6-7.5); NEUTROPHILS % 80.8 % (39.0-77.0); PLATELET COUNT 195 10^3/UL (140-440); POTASSIUM 5.1 mmol/L (3.5-5.1); RED BLOOD COUNT 3.04 10^6/ul (4.70-6.10); RED CELL DISTRIBUTION WIDTH 20.2 % (11.5-14.5); UNCORRECTED WBC 9.6 10^3/ul (4.8-10.8); WHITE BLOOD COUNT 9.6 10^3/ul (4.8-10.8)
[2016-12-05 06:34] LABS: CREATININE 5.99 mg/dl (0.61-1.24)
[2016-12-05 06:35] LABS: CALCIUM 7.6 mg/dl (8.4-10.2)
[2016-12-05 06:39] LABS: CONDITION 1; LH ANALYZER COMMENTS 1
[2016-12-05] MEDS: INSULIN ASPART [NOVOLOG] 3 ML PEN SC SCH ×4 (07:49→21:00)
[2016-12-05] MEDS: ASPIRIN 81 MG TAB PO SCH (08:34)
--- NOTE | 2016-12-05 09:07 | CONS ---
Date/Time of Note Date/Time of Note DATE: 12/05/16 TIME: 09:05 Assessment/Plan Assessment/Plan Additional Assessment/Plan ASSESSMENT: 1. Refractory ascites. 2. Ischemic cardiomyopathy. 3. End-stage renal disease. 4. Cirrhosis of liver. Plan at this point is to proceed with paracentesis to make him comfortable. I have discussed with the radiologist ____ should have some drainage procedures, and they have agreed, and IR is planning to do it. brain CT negative Hip x ray negative pleurex catheter,discussed with Consultation Date/Type/Reason Admit Date/Time Nov 20, 2016 at 09:34 Initial Consult Date 11/21/16 Type of Consultation: renal Referring Provider: DEMETRA BRUNO MD 24 HR Interval Summary Free Text/Dictation abdominal distension Exam/Review of Systems Vital Signs Vitals Vital Signs Date Time Temp Pulse Resp B/P Pulse Ox O2 Delivery O2 Flow Rate FiO2 12/05/16 08:56 98 12/05/16 07:04 97.8 18 86/62 97 12/04/16 08:50 Room Air Intake and Output 12/04/16 12/04/16 12/05/16 15:00 23:00 07:00 Intake Total 500 ml 500 ml 500 ml Output Total 3300 ml Balance -2800 ml 500 ml 500 ml Exam Constitutional: alert, oriented, well developed Psych: nl mood/affect, no complaints Neck: non-tender, supple Respiratory: clear to auscultation, normal air movement Cardiovascular: nl pulses, regular rate and rhythm Gastrointestinal: ascites, distended Musculoskeletal: nl extremities to inspection, nl gait and stance Extremities: normal pulses Results Result Diagram: 12/05/16 0530 12/05/16 0530 Results 24 hrs Laboratory Tests Test 12/04/16 11:42 12/04/16 17:15 12/04/16 20:47 12/05/16 05:30 Bedside Glucose 178 204 172 Anion Gap 20 H Basophils # 0.1 Basophils % 0.8 Blood Morphology Comment Blood Urea Nitrogen 55 H Calcium Level 7.6 L Carbon Dioxide Level 21 Chloride Level 97 Creatinine 5.99 H Eosinophils # 0.3 Eosinophils % 3.4 Glucose Level 191 Hematocrit 26.5 L Hemoglobin 8.9 L Lymphocytes # 0.6 L Lymphocytes % 6.4 L Mean Corpuscular Hemoglobin 29.2 Mean Corpuscular Hemoglobin Concent 33.4 Mean Corpuscular Volume 87.3 Mean Platelet Volume 6.9 L Monocytes # 0.8 Monocytes % 8.6 Neutrophils # 7.7 H Neutrophils % 80.8 H Nucleated Red Blood Cells # 0.0 Nucleated Red Blood Cells % 0.0 Platelet Count 195 Potassium Level 5.1 Red Blood Count 3.04 L Red Cell Distribution Width 20.2 H Sodium Level 133 L White Blood Count 9.6 Test 12/05/16 07:43 Bedside Glucose 140 Medications Medications Current Medications Lorazepam (Ativan) 0.5 mg Q8H PRN PO ANXIETY Last administered on 12/03/16 05: 37; Admin Dose 0.5 MG; Start 11/20/16 at 12:00 Ondansetron HCl (Zofran Inj) 4 mg Q6H PRN IV NAUSEA AND/OR VOMITING Last administered on 11/23/16 05:32; Admin Dose 4 MG; Start 11/20/16 at 12:00 Aspirin (Aspirin) 81 mg DAILY PO Last administered on 12/05/16 08:34; Admin Dose 81 MG; Start 11/21/16 at 09:00 Nitroglycerin (Nitroglycerin (Sl Tab) 0.4 Mg) 1 tab Q5M PRN SL CHEST PAIN; Start 11/20/16 at 12:00 Acetaminophen (Tylenol Tab) 650 mg Q6H PRN PO PAIN LEVEL 1-3 OR FEVER Last administered on 12/03/16 22:25; Admin Dose 650 MG; Start 11/20/16 at 12:00 Zolpidem Tartrate (Ambien) 5 mg QHS PRN PO INSOMNIA; Start 11/20/16 at 12:00 Pantoprazole (Protonix Tab) 40 mg DAILY@06 PO Last administered on 12/05/16 05 :37; Admin Dose 40 MG; Start 11/21/16 at 06:00 Miscellaneous Information 1 ea NOTE XX ; Start 11/20/16 at 12:30 Glucose (Glutose) 15 gm Q15M PRN PO DECREASED GLUCOSE; Start 11/20/16 at 12:30 Glucose (Glutose) 22.5 gm Q15M PRN PO DECREASED GLUCOSE; Start 11/20/16 at 12: 30 Dextrose (D50w Syringe) 25 ml Q15M PRN IV DECREASED GLUCOSE; Start 11/20/16 at 12:30 Dextrose (D50w Syringe) 50 ml Q15M PRN IV DECREASED GLUCOSE; Start 11/20/16 at 12:30 Glucagon (Glucagen) 1 mg Q15M PRN IM DECREASED GLUCOSE; Start 11/20/16 at 12:30 Glucose (Glutose) 15 gm Q15M PRN BUCCAL DECREASED GLUCOSE; Start 11/20/16 at 12 :30 Levothyroxine Sodium (Synthroid) 125 mcg DAILY@06 PO Last administered on 05:37; Admin Dose 125 MCG; Start 11/22/16 at 06:00 Guaifenesin (Robitussin Liquid Cup) 100 mg Q6H PRN PO COUGH Last administered on 11/25/16 21:58; Admin Dose 100 MG; Start 11/23/16 at 16:30 IV Flush (NS 10 ml) 10 ml PRN PRN IV IV PROTOCOL; Start 11/24/16 at 15:30 Insulin Glargine (Lantus) 15 unit HS SC Last administered on 12/04/16 20:52; Admin Dose 15 UNIT; Start 11/26/16 at 21:00 Midodrine 5 mg 5 mg BID@ PRN PO sbp<80 Last administered on 12/04/16 09: 00; Admin Dose 5 MG; Start 11/28/16 at 17:00 Albumin Human (Albumin Human 25%) 100 ml @ 100 mls/hr ONCE PRN IV after paracentesis; Start 12/02/16 at 02:00 Morphine Sulfate (morphine) 2 mg Q3H PRN IV PAIN LEVEL 7-10 Last administered on 12/05/16 08:57; Admin Dose 2 MG; Start 12/04/16 at 10:00 LOR MASON MD Dec 05, 2016 09:07
--- NOTE | 2016-12-05 13:33 | CONS ---
Date/Time of Note Date/Time of Note DATE: 12/05/16 TIME: 13:32 Assessment/Plan Assessment/Plan Additional Assessment/Plan Hypotension, improving AV fistula stenosis status post venoplasty Acute decompensated systolic and diastolic heart failure Cardiomyopathy, likely ischemic and nonischemic in origin with an ejection fraction less than 20%. (Denied cardiac transplant at [facility]) Biventricular pacemaker and ICD Mitral and tricuspid valve regurgitation. Severe pulmonary hypertension. End-stage renal disease on hemodialysis Ascites status post paracentesis -Patient planned for abdominal drain to be placed. Fluid management via hemodialysis as per our nephrology colleagues. Consultation Date/Type/Reason Admit Date/Time Nov 20, 2016 at 09:34 Initial Consult Date 11/21/16 Type of Consultation: cv Referring Provider: DEMETRA BRUNO MD 24 HR Interval Summary Free Text/Dictation Shortness of breath is the same, abdominal distention is increasing Exam/Review of Systems Vital Signs Vitals Vital Signs Date Time Temp Pulse Resp B/P Pulse Ox O2 Delivery O2 Flow Rate FiO2 12/05/16 12:11 108 12/05/16 11:21 98.6 18 88/54 96 12/04/16 08:50 Room Air Intake and Output 12/04/16 12/04/16 12/05/16 15:00 23:00 07:00 Intake Total 500 ml 500 ml 500 ml Output Total 3300 ml Balance -2800 ml 500 ml 500 ml Exam No apparent distress Constitutional: alert, frail, oriented Head: normocephalic Neck: supple Respiratory: other (Coarse breath sounds bilaterally, no wheezing) Cardiovascular: other (S1-S2 heard), regular rate and rhythm Gastrointestinal: bowel sounds, distended, non-tender, soft Extremities: edema Results Result Diagram: 12/05/16 0530 12/05/16 0530 Results 24 hrs Laboratory Tests Test 12/04/16 17:15 12/04/16 20:47 12/05/16 05:30 12/05/16 07:43 Bedside Glucose 204 172 140 Anion Gap 20 H Basophils # 0.1 Basophils % 0.8 Blood Morphology Comment Blood Urea Nitrogen 55 H Calcium Level 7.6 L Carbon Dioxide Level 21 Chloride Level 97 Creatinine 5.99 H Eosinophils # 0.3 Eosinophils % 3.4 Glucose Level 191 Hematocrit 26.5 L Hemoglobin 8.9 L Lymphocytes # 0.6 L Lymphocytes % 6.4 L Mean Corpuscular Hemoglobin 29.2 Mean Corpuscular Hemoglobin Concent 33.4 Mean Corpuscular Volume 87.3 Mean Platelet Volume 6.9 L Monocytes # 0.8 Monocytes % 8.6 Neutrophils # 7.7 H Neutrophils % 80.8 H Nucleated Red Blood Cells # 0.0 Nucleated Red Blood Cells % 0.0 Platelet Count 195 Potassium Level 5.1 Red Blood Count 3.04 L Red Cell Distribution Width 20.2 H Sodium Level 133 L White Blood Count 9.6 Test 12/05/16 11:00 12/05/16 11:59 Ammonia 17 Bedside Glucose 150 Medications Medications Current Medications Lorazepam (Ativan) 0.5 mg Q8H PRN PO ANXIETY Last administered on 12/03/16 05: 37; Admin Dose 0.5 MG; Start 11/20/16 at 12:00 Ondansetron HCl (Zofran Inj) 4 mg Q6H PRN IV NAUSEA AND/OR VOMITING Last administered on 11/23/16 05:32; Admin Dose 4 MG; Start 11/20/16 at 12:00 Aspirin (Aspirin) 81 mg DAILY PO Last administered on 12/05/16 08:34; Admin Dose 81 MG; Start 11/21/16 at 09:00 Nitroglycerin (Nitroglycerin (Sl Tab) 0.4 Mg) 1 tab Q5M PRN SL CHEST PAIN; Start 11/20/16 at 12:00 Acetaminophen (Tylenol Tab) 650 mg Q6H PRN PO PAIN LEVEL 1-3 OR FEVER Last administered on 12/03/16 22:25; Admin Dose 650 MG; Start 11/20/16 at 12:00 Zolpidem Tartrate (Ambien) 5 mg QHS PRN PO INSOMNIA; Start 11/20/16 at 12:00 Pantoprazole (Protonix Tab) 40 mg DAILY@06 PO Last administered on 12/05/16 05 :37; Admin Dose 40 MG; Start 11/21/16 at 06:00 Miscellaneous Information 1 ea NOTE XX ; Start 11/20/16 at 12:30 Glucose (Glutose) 15 gm Q15M PRN PO DECREASED GLUCOSE; Start 11/20/16 at 12:30 Glucose (Glutose) 22.5 gm Q15M PRN PO DECREASED GLUCOSE; Start 11/20/16 at 12: 30 Dextrose (D50w Syringe) 25 ml Q15M PRN IV DECREASED GLUCOSE; Start 11/20/16 at 12:30 Dextrose (D50w Syringe) 50 ml Q15M PRN IV DECREASED GLUCOSE; Start 11/20/16 at 12:30 Glucagon (Glucagen) 1 mg Q15M PRN IM DECREASED GLUCOSE; Start 11/20/16 at 12:30 Glucose (Glutose) 15 gm Q15M PRN BUCCAL DECREASED GLUCOSE; Start 11/20/16 at 12 :30 Levothyroxine Sodium (Synthroid) 125 mcg DAILY@06 PO Last administered on 05:37; Admin Dose 125 MCG; Start 11/22/16 at 06:00 Guaifenesin (Robitussin Liquid Cup) 100 mg Q6H PRN PO COUGH Last administered on 11/25/16 21:58; Admin Dose 100 MG; Start 11/23/16 at 16:30 IV Flush (NS 10 ml) 10 ml PRN PRN IV IV PROTOCOL; Start 11/24/16 at 15:30 Insulin Glargine (Lantus) 15 unit HS SC Last administered on 12/04/16 20:52; Admin Dose 15 UNIT; Start 11/26/16 at 21:00 Midodrine 5 mg 5 mg BID@17 PRN PO sbp<80 Last administered on 12/04/16 09: 00; Admin Dose 5 MG; Start 11/28/16 at 17:00 Albumin Human (Albumin Human 25%) 100 ml @ 100 mls/hr ONCE PRN IV after paracentesis; Start 12/02/16 at 02:00 Morphine Sulfate (morphine) 2 mg Q3H PRN IV PAIN LEVEL 7-10 Last administered on 12/05/16 12:31; Admin Dose 2 MG; Start 12/04/16 at 10:00 Harpreet Cee DO Dec 05, 2016 13:33
--- NOTE | 2016-12-05 16:52 | PN ---
Date/Time of Note Date/Time of Note DATE: 12/05/16 TIME: 16:50 Assessment/Plan VTE Prophylaxis VTE Prophylaxis Intervention: SCD's Lines/Catheters IV Catheter Type (from Nrs): PICC Line Central line still needed: Yes Urinary Cath still in place: No Assessment/Plan Chief Complaint/Hosp Course ASSESSMENT AND PLAN: - Status post mechanical fall yesterday most likely secondary to low blood pressure. Brain CT is negative, hip x-ray is negative for fracture. - Severe hypotension requiring pressors, resolved. - Congestive heart failure exacerbation with ejection fraction of 20% per last echo. Continue to remove fluids with hemodialysis. - Ascites, status post paracentesis on11/20, 12/02. Patient is currently undergoing evaluation for drain placement. - End-stage renal disease, hemodialysis-dependent. Dr. Maddox is following from nephrology standpoint. Continue patient on hemodialysis. - Coronary artery disease status post coronary artery bypass graft. Continue patient on aspirin and Coreg. Dr. Cee is following from cardiology standpoint. - Hypothyroidism. TSH is 14, Synthroid increased to 125. - Diabetes mellitus type 2. Continue to monitor blood sugar with mild algorithm scale, NovoLog coverage. - Hemodialysis access, status post right AV fistulogram by Dr. Loco, vascular surgery on 11/21. - Liver cirrhosis and portal hypertension. Dr. Kirkpatrick is following in gastroenterology consultation. Continue Protonix for peptic ulcer disease prophylaxis. Further recommendations based on clinical course. Plan of care discussed with Dr. Vick. Problems: Subjective 24 Hr Interval Summary Free Text/Dictation Patient was periods of confusion, otherwise awake alert follow commands, pending drain placement today. Exam/Review of Systems Vital Signs Vitals Vital Signs Date Time Temp Pulse Resp B/P Pulse Ox O2 Delivery O2 Flow Rate FiO2 12/05/16 15:12 98.4 95 18 111/89 98 12/04/16 08:50 Room Air Intake and Output 12/04/16 12/04/16 12/05/16 15:00 23:00 07:00 Intake Total 500 ml 500 ml 500 ml Output Total 3300 ml Balance -2800 ml 500 ml 500 ml Exam GENERAL: well-developed, well-nourished male, currently is awake, alert. Left eyebrow abrasion and bruising. HEENT: Head is atraumatic, normocephalic. NECK: Supple. JVD is present, no cervical lymphadenopathy. CHEST: Lungs are clear bilaterally, slightly diminished at the bases. CARDIOVASCULAR: Regular rhythm and rate, normal S1, S2. No murmurs, gallops, clicks, rubs noted. The patient has a left chest permanent pacemaker with AICD. GASTROINTESTINAL: Abdomen is protuberant, soft, slightly distended, nontender. Bowel sounds present. No guarding, no rebound tenderness. SKIN: No rash, petechiae. EXTREMITIES: The patient has bilateral lower extremity edema, 3+. NEUROLOGIC: The patient is awake, alert and oriented x3. Results Result Diagram: 12/05/16 0530 12/05/16 0530 Results 24 hrs Laboratory Tests Test 12/04/16 17:15 12/04/16 20:47 12/05/16 05:30 12/05/16 07:43 Bedside Glucose 204 172 140 Anion Gap 20 H Basophils # 0.1 Basophils % 0.8 Blood Morphology Comment Blood Urea Nitrogen 55 H Calcium Level 7.6 L Carbon Dioxide Level 21 Chloride Level 97 Creatinine 5.99 H Eosinophils # 0.3 Eosinophils % 3.4 Glucose Level 191 Hematocrit 26.5 L Hemoglobin 8.9 L Lymphocytes # 0.6 L Lymphocytes % 6.4 L Mean Corpuscular Hemoglobin 29.2 Mean Corpuscular Hemoglobin Concent 33.4 Mean Corpuscular Volume 87.3 Mean Platelet Volume 6.9 L Monocytes # 0.8 Monocytes % 8.6 Neutrophils # 7.7 H Neutrophils % 80.8 H Nucleated Red Blood Cells # 0.0 Nucleated Red Blood Cells % 0.0 Platelet Count 195 Potassium Level 5.1 Red Blood Count 3.04 L Red Cell Distribution Width 20.2 H Sodium Level 133 L White Blood Count 9.6 Test 12/05/16 11:00 12/05/16 11:59 Ammonia 17 Bedside Glucose 150 Medications Medications Current Medications Lorazepam (Ativan) 0.5 mg Q8H PRN PO ANXIETY Last administered on 12/03/16 05: 37; Admin Dose 0.5 MG; Start 11/20/16 at 12:00 Ondansetron HCl (Zofran Inj) 4 mg Q6H PRN IV NAUSEA AND/OR VOMITING Last administered on 11/23/16 05:32; Admin Dose 4 MG; Start 11/20/16 at 12:00 Aspirin (Aspirin) 81 mg DAILY PO Last administered on 12/05/16 08:34; Admin Dose 81 MG; Start 11/21/16 at 09:00 Nitroglycerin (Nitroglycerin (Sl Tab) 0.4 Mg) 1 tab Q5M PRN SL CHEST PAIN; Start 11/20/16 at 12:00 Acetaminophen (Tylenol Tab) 650 mg Q6H PRN PO PAIN LEVEL 1-3 OR FEVER Last administered on 12/03/16 22:25; Admin Dose 650 MG; Start 11/20/16 at 12:00 Zolpidem Tartrate (Ambien) 5 mg QHS PRN PO INSOMNIA; Start 11/20/16 at 12:00 Pantoprazole (Protonix Tab) 40 mg DAILY@06 PO Last administered on 12/05/16 05 :37; Admin Dose 40 MG; Start 11/21/16 at 06:00 Miscellaneous Information 1 ea NOTE XX ; Start 11/20/16 at 12:30 Glucose (Glutose) 15 gm Q15M PRN PO DECREASED GLUCOSE; Start 11/20/16 at 12:30 Glucose (Glutose) 22.5 gm Q15M PRN PO DECREASED GLUCOSE; Start 11/20/16 at 12: 30 Dextrose (D50w Syringe) 25 ml Q15M PRN IV DECREASED GLUCOSE; Start 11/20/16 at 12:30 Dextrose (D50w Syringe) 50 ml Q15M PRN IV DECREASED GLUCOSE; Start 11/20/16 at 12:30 Glucagon (Glucagen) 1 mg Q15M PRN IM DECREASED GLUCOSE; Start 11/20/16 at 12:30 Glucose (Glutose) 15 gm Q15M PRN BUCCAL DECREASED GLUCOSE; Start 11/20/16 at 12 :30 Levothyroxine Sodium (Synthroid) 125 mcg DAILY@06 PO Last administered on 05:37; Admin Dose 125 MCG; Start 11/22/16 at 06:00 Guaifenesin (Robitussin Liquid Cup) 100 mg Q6H PRN PO COUGH Last administered on 11/25/16 21:58; Admin Dose 100 MG; Start 11/23/16 at 16:30 IV Flush (NS 10 ml) 10 ml PRN PRN IV IV PROTOCOL; Start 11/24/16 at 15:30 Insulin Glargine (Lantus) 15 unit HS SC Last administered on 12/04/16 20:52; Admin Dose 15 UNIT; Start 11/26/16 at 21:00 Midodrine 5 mg 5 mg BID@,17 PRN PO sbp<80 Last administered on 12/04/16 09: 00; Admin Dose 5 MG; Start 11/28/16 at 17:00 Albumin Human (Albumin Human 25%) 100 ml @ 100 mls/hr ONCE PRN IV after paracentesis; Start 12/02/16 at 02:00 Morphine Sulfate (morphine) 2 mg Q3H PRN IV PAIN LEVEL 7-10 Last administered on 12/05/16 15:30; Admin Dose 2 MG; Start 12/04/16 at 10:00 DICKSON GROSSMAN Dec 05, 2016 16:51
[2016-12-05] MEDS: INSULIN GLARGINE [LANtus] 3 ML PEN SC SCH (21:41)
--- NOTE | 2016-12-05 22:38 | CONS ---
Date/Time of Note Date/Time of Note DATE: 12/05/16 TIME: 22:38 Assessment/Plan Assessment/Plan Chief Complaint/Hosp Course Next HD in AM Problems: Additional Assessment/Plan Will continue HD per schedule & Paracentasis per GI Consultation Date/Type/Reason Admit Date/Time Nov 20, 2016 at 09:34 Initial Consult Date 11/21/16 Type of Consultation: renal Referring Provider: DEMETRA BRUNO MD 24 HR Interval Summary Free Text/Dictation {t remains confined to bed with recurrent ascites Exam/Review of Systems Vital Signs Vitals Vital Signs Date Time Temp Pulse Resp B/P Pulse Ox O2 Delivery O2 Flow Rate FiO2 12/05/16 20:20 98.1 18 18 115/56 90 12/04/16 08:50 Room Air Intake and Output 12/04/16 12/04/16 12/05/16 15:00 23:00 07:00 Intake Total 500 ml 500 ml 500 ml Output Total 3300 ml Balance -2800 ml 500 ml 500 ml Exam Constitutional: alert, oriented, well developed Psych: nl mood/affect, no complaints Head: atraumatic, normocephalic Eyes: EOMI, PERRL, nl conjunctiva, nl lids, nl sclera ENMT: nl external ears & nose, nl lips & teeth, nl nasal mucosa & septum Neck: non-tender, supple Respiratory: clear to auscultation, normal air movement Cardiovascular: nl pulses, regular rate and rhythm Gastrointestinal: ascites (Difficlt management problem), nl liver, spleen, non- tender, soft Musculoskeletal: nl extremities to inspection, nl gait and stance Extremities: normal pulses 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: 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, nl mental status, nl speech, nl strength Skin: nl turgor, No rash or lesions Lymph: nl lymph nodes Results Result Diagram: 12/05/16 0530 12/05/16 0530 Results 24 hrs Laboratory Tests Test 12/05/16 05:30 12/05/16 07:43 12/05/16 11:00 12/05/16 11:59 Anion Gap 20 H Basophils # 0.1 Basophils % 0.8 Blood Morphology Comment Blood Urea Nitrogen 55 H Calcium Level 7.6 L Carbon Dioxide Level 21 Chloride Level 97 Creatinine 5.99 H Eosinophils # 0.3 Eosinophils % 3.4 Glucose Level 191 Hematocrit 26.5 L Hemoglobin 8.9 L Lymphocytes # 0.6 L Lymphocytes % 6.4 L Mean Corpuscular Hemoglobin 29.2 Mean Corpuscular Hemoglobin Concent 33.4 Mean Corpuscular Volume 87.3 Mean Platelet Volume 6.9 L Monocytes # 0.8 Monocytes % 8.6 Neutrophils # 7.7 H Neutrophils % 80.8 H Nucleated Red Blood Cells # 0.0 Nucleated Red Blood Cells % 0.0 Platelet Count 195 Potassium Level 5.1 Red Blood Count 3.04 L Red Cell Distribution Width 20.2 H Sodium Level 133 L White Blood Count 9.6 Bedside Glucose 140 150 Ammonia 17 Test 12/05/16 17:07 12/05/16 21:38 Bedside Glucose 178 166 Medications Medications Current Medications Lorazepam (Ativan) 0.5 mg Q8H PRN PO ANXIETY Last administered on 12/03/16 05: 37; Admin Dose 0.5 MG; Start 11/20/16 at 12:00 Ondansetron HCl (Zofran Inj) 4 mg Q6H PRN IV NAUSEA AND/OR VOMITING Last administered on 11/23/16 05:32; Admin Dose 4 MG; Start 11/20/16 at 12:00 Aspirin (Aspirin) 81 mg DAILY PO Last administered on 12/05/16 08:34; Admin Dose 81 MG; Start 11/21/16 at 09:00 Nitroglycerin (Nitroglycerin (Sl Tab) 0.4 Mg) 1 tab Q5M PRN SL CHEST PAIN; Start 11/20/16 at 12:00 Acetaminophen (Tylenol Tab) 650 mg Q6H PRN PO PAIN LEVEL 1-3 OR FEVER Last administered on 12/03/16 22:25; Admin Dose 650 MG; Start 11/20/16 at 12:00 Zolpidem Tartrate (Ambien) 5 mg QHS PRN PO INSOMNIA; Start 11/20/16 at 12:00 Pantoprazole (Protonix Tab) 40 mg DAILY@06 PO Last administered on 12/05/16 05 :37; Admin Dose 40 MG; Start 11/21/16 at 06:00 Miscellaneous Information 1 ea NOTE XX ; Start 11/20/16 at 12:30 Glucose (Glutose) 15 gm Q15M PRN PO DECREASED GLUCOSE; Start 11/20/16 at 12:30 Glucose (Glutose) 22.5 gm Q15M PRN PO DECREASED GLUCOSE; Start 11/20/16 at 12: 30 Dextrose (D50w Syringe) 25 ml Q15M PRN IV DECREASED GLUCOSE; Start 11/20/16 at 12:30 Dextrose (D50w Syringe) 50 ml Q15M PRN IV DECREASED GLUCOSE; Start 11/20/16 at 12:30 Glucagon (Glucagen) 1 mg Q15M PRN IM DECREASED GLUCOSE; Start 11/20/16 at 12:30 Glucose (Glutose) 15 gm Q15M PRN BUCCAL DECREASED GLUCOSE; Start 11/20/16 at 12 :30 Levothyroxine Sodium (Synthroid) 125 mcg DAILY@06 PO Last administered on 05:37; Admin Dose 125 MCG; Start 11/22/16 at 06:00 Guaifenesin (Robitussin Liquid Cup) 100 mg Q6H PRN PO COUGH Last administered on 11/25/16 21:58; Admin Dose 100 MG; Start 11/23/16 at 16:30 IV Flush (NS 10 ml) 10 ml PRN PRN IV IV PROTOCOL; Start 11/24/16 at 15:30 Insulin Glargine (Lantus) 15 unit HS SC Last administered on 12/05/16 21:41; Admin Dose 15 UNIT; Start 11/26/16 at 21:00 Midodrine 5 mg 5 mg BID@,17 PRN PO sbp<80 Last administered on 12/04/16 09: 00; Admin Dose 5 MG; Start 11/28/16 at 17:00 Albumin Human (Albumin Human 25%) 100 ml @ 100 mls/hr ONCE PRN IV after paracentesis; Start 12/02/16 at 02:00 Morphine Sulfate (morphine) 2 mg Q3H PRN IV PAIN LEVEL 7-10 Last administered on 12/05/16 21:30; Admin Dose 2 MG; Start 12/04/16 at 10:00 MILADY ANDERSON MD Dec 05, 2016 22:38
[2016-12-06] VITALS (36 sets, daily range): BP systolic 78–130; BP diastolic 37–74; PULSE 88–118; RESP 16–18
[2016-12-06] MEDS: morphine 2 MG INJ IV PRN ×7 (00:26→21:21)
[2016-12-06] MEDS: PANTOPRAZOLE (EC) 40 MG TAB PO SCH (06:32)
[2016-12-06] MEDS: LEVOTHYROXINE 125 MCG TAB PO SCH (06:32)
[2016-12-06] MEDS: INSULIN ASPART [NOVOLOG] 3 ML PEN SC SCH ×4 (07:55→21:00)
[2016-12-06] MEDS: ALBUMIN HUMAN 25% 100 ML IV PRN (08:26)
[2016-12-06] MEDS: ASPIRIN 81 MG TAB PO SCH (09:00)
[2016-12-06] MEDS ORDERED: MIDAZOLAM 1 MG/ML 2 ML INJ ONE (11:07)
[2016-12-06] MEDS ORDERED: SOD CHLORIDE 0.9% 500 ML ONE (11:07)
[2016-12-06] MEDS ORDERED: FENTAnyl 50 MCG/ML VIAL ONE (11:07)
--- NOTE | 2016-12-06 12:12 | PN ---
Date/Time of Note Date/Time of Note DATE: 12/06/16 TIME: 12:11 Assessment/Plan VTE Prophylaxis VTE Prophylaxis Intervention: SCD's Lines/Catheters IV [facility] P[facility] Line Urinary Cath still in place: No Assessment/Plan Chief Complaint/Hosp Course ASSESSMENT AND PLAN: - Status post mechanical fall yesterday most likely secondary to low blood pressure. Brain CT is negative, hip x-ray is negative for fracture. - Severe hypotension requiring pressors, resolved. - Congestive heart failure exacerbation with ejection fraction of 20% per last echo. Continue to remove fluids with hemodialysis. - Ascites, status post paracentesis on11/20, 12/02. Patient is currently undergoing evaluation for drain placement. - End-stage renal disease, hemodialysis-dependent. Dr. Maddox is following from nephrology standpoint. Continue patient on hemodialysis. - Coronary artery disease status post coronary artery bypass graft. Continue patient on aspirin and Coreg. Dr. Cee is following from cardiology standpoint. - Hypothyroidism. TSH is 14, Synthroid increased to 125. - Diabetes mellitus type 2. Continue to monitor blood sugar with mild algorithm scale, NovoLog coverage. - Hemodialysis access, status post right AV fistulogram by Dr. Loco, vascular surgery on 11/21. - Liver cirrhosis and portal hypertension. Dr. Kirkpatrick is following in gastroenterology consultation. Continue Protonix for peptic ulcer disease prophylaxis. Further recommendations based on clinical course. Plan of care discussed with Dr. Vick. Problems: Subjective 24 Hr Interval Summary Free Text/Dictation patient went to OR for drain placement. Exam/Review of Systems Vital Signs Vitals Vital Signs Date Time Temp Pulse Resp B/P Pulse Ox O2 Delivery O2 Flow Rate FiO2 12/06/16 11:15 98.0 87 18 89/54 99 12/04/16 08:50 Room Air Intake and Output 12/05/16 12/05/16 12/06/16 15:00 23:00 07:00 Intake Total 450 ml Balance 450 ml Results Result Diagram: 12/05/16 0530 12/05/16 0530 Results 24 hrs Laboratory Tests Test 12/05/16 17:07 12/05/16 21:38 12/06/16 08:00 Bedside Glucose 178 166 123 Medications Medications Current Medications Lorazepam (Ativan) 0.5 mg Q8H PRN PO ANXIETY Last administered on 12/03/16 05: 37; Admin Dose 0.5 MG; Start 11/20/16 at 12:00 Ondansetron HCl (Zofran Inj) 4 mg Q6H PRN IV NAUSEA AND/OR VOMITING Last administered on 11/23/16 05:32; Admin Dose 4 MG; Start 11/20/16 at 12:00 Aspirin (Aspirin) 81 mg DAILY PO Last administered on 12/05/16 08:34; Admin Dose 81 MG; Start 11/21/16 at 09:00 Nitroglycerin (Nitroglycerin (Sl Tab) 0.4 Mg) 1 tab Q5M PRN SL CHEST PAIN; Start 11/20/16 at 12:00 Acetaminophen (Tylenol Tab) 650 mg Q6H PRN PO PAIN LEVEL 1-3 OR FEVER Last administered on 12/03/16 22:25; Admin Dose 650 MG; Start 11/20/16 at 12:00 Zolpidem Tartrate (Ambien) 5 mg QHS PRN PO INSOMNIA; Start 11/20/16 at 12:00 Pantoprazole (Protonix Tab) 40 mg DAILY@06 PO Last administered on 12/06/16 06 :32; Admin Dose 40 MG; Start 11/21/16 at 06:00 Miscellaneous Information 1 ea NOTE XX ; Start 11/20/16 at 12:30 Glucose (Glutose) 15 gm Q15M PRN PO DECREASED GLUCOSE; Start 11/20/16 at 12:30 Glucose (Glutose) 22.5 gm Q15M PRN PO DECREASED GLUCOSE; Start 11/20/16 at 12: 30 Dextrose (D50w Syringe) 25 ml Q15M PRN IV DECREASED GLUCOSE; Start 11/20/16 at 12:30 Dextrose (D50w Syringe) 50 ml Q15M PRN IV DECREASED GLUCOSE; Start 11/20/16 at 12:30 Glucagon (Glucagen) 1 mg Q15M PRN IM DECREASED GLUCOSE; Start 11/20/16 at 12:30 Glucose (Glutose) 15 gm Q15M PRN BUCCAL DECREASED GLUCOSE; Start 11/20/16 at 12 :30 Levothyroxine Sodium (Synthroid) 125 mcg DAILY@06 PO Last administered on 06:32; Admin Dose 125 MCG; Start 11/22/16 at 06:00 Guaifenesin (Robitussin Liquid Cup) 100 mg Q6H PRN PO COUGH Last administered on 11/25/16 21:58; Admin Dose 100 MG; Start 11/23/16 at 16:30 IV Flush (NS 10 ml) 10 ml PRN PRN IV IV PROTOCOL; Start 11/24/16 at 15:30 Insulin Glargine (Lantus) 15 unit HS SC Last administered on 12/05/16 21:41; Admin Dose 15 UNIT; Start 11/26/16 at 21:00 Midodrine 5 mg 5 mg BID@09,17 PRN PO sbp<80 Last administered on 12/04/16 09: 00; Admin Dose 5 MG; Start 11/28/16 at 17:00 Albumin Human (Albumin Human 25%) 100 ml @ 100 mls/hr ONCE PRN IV after paracentesis; Start 12/02/16 at 02:00 Morphine Sulfate (morphine) 2 mg Q3H PRN IV PAIN LEVEL 7-10 Last administered on 12/06/16 10:15; Admin Dose 2 MG; Start 12/04/16 at 10:00 DICKSON GROSSMAN Dec 06, 2016 12:12
--- NOTE | 2016-12-06 12:54 | RADRPT ---
PROCEDURE: Ultrasound guidance for placement of needle in the left lower quadrant peritoneal space . CLINICAL INDICATION: Peritoneal access for placement of a drainage catheter. TECHNIQUE: Prior to the procedure, informed consent was obtained. Risks including bleeding, infection, and pneu mothorax were explained to the patient. The patient understood and was willing to proceed. A procedu ral pause was performed. The patient's name, date of , and procedure to be performed were verif ied. The needle was inserted with all elements of maximal sterile barrier technique. All of the foll owing were used: head covering, facial mask, sterile gown, sterile gloves, a large sterile sheet, sullivan nd hygiene, and 2% chlorhexidine for cutaneous antisepsis. The left lower quadrant of the abdomen was prepped and draped in usual sterile fashion. Limited sonography of the left lower quadrant was performed demonstrating a large amount of ascites. Ultrasound images were recorded and stored in the patient's medical record. Following the local injection of Xylocaine, the left lower quadrant of the abdomen was punctured und er sonographic guidance with a 19-gauge needle through which a 0.035 inch floppy tip guidewire was a dvanced into the peritoneal space. The patient tolerated the procedure well. The remainder of the procedure was performed and dictated under separate cover. COMPARISON: None. FINDINGS: The ultrasound images demonstrate a large amount of ascites. The subsequent images demonstrate the needle entering the left lower quadrant peritoneal space. IMPRESSION: 1. Ultrasound guidance for a needle placement in left lower quadrant peritoneal space. RPTAT: QQ .Neo Jerome MD, Date Time Electronically viewed and signed by .Neo Jerome MD, on 12/06/2016 12:53 .R/
--- NOTE | 2016-12-06 13:02 | RADRPT ---
PROCEDURE: Ultrasound and fluoroscopic guided percutaneous placement of a tunneled peritoneal drai nage catheter. CLINICAL INDICATION: Abdominal pain and distension. Shortness of breath. Chronic ascites. TECHNIQUE: Prior to the procedure, an informed consent was obtained. Risks including bleeding and infection wer e explained to the patient. The patient understood and was willing to proceed. A procedural pause wa s performed. The patient's name, date of , and procedure to be performed were verified. In abraham tion, chlorhexidine was applied to the anterior abdominal wall and anterior pelvic wall, prior to th e procedure. Local anesthetic was used at the puncture site and at the site of the tunneling. The anterior abdominal wall and anterior pelvic wall was prepped and draped in the usual sterile fas hion. Using ultrasound guidance, a 19-gauge needle was advanced into the peritoneal space in the lef t lower quadrant. A 0.035 inch floppy-tip guidewire was advanced into the peritoneal space under flu oroscopic guidance. Following this, the catheter was tunneled subcutaneously in the left flank. e cuff of the catheter was positioned in the subcutaneous tissues within the tunnel approximately 2 cm from the exit site of the catheter. Serial dilatation was then performed to 16-Wallisian and a 16-Fr ench peel-away sheath was advanced over the guidewire. The 15.5 Wallisian Pleurex peritoneal catheter w as advanced through the peel-away sheath into the peritoneal space. Ascites was aspirated, to verify position. The peel-away sheath was removed. The subcutaneous tissues were closed with interrupted 3 -0 Vicryl. The skin wound was then closed using 4-0 Vicryl and a running subcuticular technique. The catheter was secured to the skin with 2-0 silk. The site was dressed. The patient tolerated the procedure well. Abundant ascites was aspirated out of the catheter without problem. Total fluoroscopy time is 0.1 minutes. 3 fluoroscopic guided images of the abdomen were obtained. COMPARISON: None. FINDINGS: The final images demonstrate the peritoneal catheter within the pelvic peritoneal space. 3 liters of ascites fluid was removed following the procedure. IMPRESSION: 1. Satisfactory percutaneous insertion of tunneled peritoneal drainage catheter with ultrasound and fluoroscopic guidance. RPTAT: QQ .Neo Jerome MD, MD Date Time Electronically viewed and signed by .Neo Jerome MD, on 12/06/2016 13:02 .R/
--- NOTE | 2016-12-06 14:06 | CONS ---
Date/Time of Note Date/Time of Note DATE: 12/06/16 TIME: 14:01 Assessment/Plan Assessment/Plan Additional Assessment/Plan Hypotension, improving AV fistula stenosis status post venoplasty Acute decompensated systolic and diastolic heart failure Cardiomyopathy, likely ischemic and nonischemic in origin with an ejection fraction less than 20%. (Denied cardiac transplant at [facility]) Biventricular pacemaker and ICD Mitral and tricuspid valve regurgitation. Severe pulmonary hypertension. End-stage renal disease on hemodialysis Ascites status post paracentesis -Patient planned for abdominal drain to be placed today. Fluid management via hemodialysis as per our nephrology colleagues. Patient with irregularities noted on telemetry. Would request pacemaker interrogation. Consultation Date/Type/Reason Admit Date/Time Nov 20, 2016 at 09:34 Initial Consult Date 11/21/16 Type of Consultation: cv Referring Provider: DEMETRA BRUNO MD 24 HR Interval Summary Free Text/Dictation Patient status post hemodialysis today. Denies shortness of breath. Plan for IR procedure today Exam/Review of Systems Vital Signs Vitals Vital Signs Date Time Temp Pulse Resp B/P Pulse Ox O2 Delivery O2 Flow Rate FiO2 12/06/16 13:00 Nasal Cannula 2 12/06/16 12:11 106 12/06/16 11:46 98.0 16 86/37 91 Intake and Output 12/05/16 12/05/16 12/06/16 15:00 23:00 07:00 Intake Total 450 ml Balance 450 ml Exam No apparent distress Constitutional: alert, frail, oriented Head: normocephalic Neck: supple Respiratory: other (Coarse breath sounds bilaterally, no wheezing) Cardiovascular: other (s1s2 heard), regular rate and rhythm Gastrointestinal: bowel sounds, distended, non-tender, soft Extremities: edema Results Result Diagram: 12/05/16 0530 12/05/16 0530 Results 24 hrs Laboratory Tests Test 12/05/16 17:07 12/05/16 21:38 12/06/16 08:00 Bedside Glucose 178 166 123 Medications Medications Current Medications Lorazepam (Ativan) 0.5 mg Q8H PRN PO ANXIETY Last administered on 12/03/16 05: 37; Admin Dose 0.5 MG; Start 11/20/16 at 12:00 Ondansetron HCl (Zofran Inj) 4 mg Q6H PRN IV NAUSEA AND/OR VOMITING Last administered on 11/23/16 05:32; Admin Dose 4 MG; Start 11/20/16 at 12:00 Aspirin (Aspirin) 81 mg DAILY PO Last administered on 12/05/16 08:34; Admin Dose 81 MG; Start 11/21/16 at 09:00 Nitroglycerin (Nitroglycerin (Sl Tab) 0.4 Mg) 1 tab Q5M PRN SL CHEST PAIN; Start 11/20/16 at 12:00 Acetaminophen (Tylenol Tab) 650 mg Q6H PRN PO PAIN LEVEL 1-3 OR FEVER Last administered on 12/03/16 22:25; Admin Dose 650 MG; Start 11/20/16 at 12:00 Zolpidem Tartrate (Ambien) 5 mg QHS PRN PO INSOMNIA; Start 11/20/16 at 12:00 Pantoprazole (Protonix Tab) 40 mg DAILY@06 PO Last administered on 12/06/16 06 :32; Admin Dose 40 MG; Start 11/21/16 at 06:00 Miscellaneous Information 1 ea NOTE XX ; Start 11/20/16 at 12:30 Glucose (Glutose) 15 gm Q15M PRN PO DECREASED GLUCOSE; Start 11/20/16 at 12:30 Glucose (Glutose) 22.5 gm Q15M PRN PO DECREASED GLUCOSE; Start 11/20/16 at 12: 30 Dextrose (D50w Syringe) 25 ml Q15M PRN IV DECREASED GLUCOSE; Start 11/20/16 at 12:30 Dextrose (D50w Syringe) 50 ml Q15M PRN IV DECREASED GLUCOSE; Start 11/20/16 at 12:30 Glucagon (Glucagen) 1 mg Q15M PRN IM DECREASED GLUCOSE; Start 11/20/16 at 12:30 Glucose (Glutose) 15 gm Q15M PRN BUCCAL DECREASED GLUCOSE; Start 11/20/16 at 12 :30 Levothyroxine Sodium (Synthroid) 125 mcg DAILY@06 PO Last administered on 06:32; Admin Dose 125 MCG; Start 11/22/16 at 06:00 Guaifenesin (Robitussin Liquid Cup) 100 mg Q6H PRN PO COUGH Last administered on 11/25/16 21:58; Admin Dose 100 MG; Start 11/23/16 at 16:30 IV Flush (NS 10 ml) 10 ml PRN PRN IV IV PROTOCOL; Start 11/24/16 at 15:30 Insulin Glargine (Lantus) 15 unit HS SC Last administered on 12/05/16 21:41; Admin Dose 15 UNIT; Start 11/26/16 at 21:00 Midodrine 5 mg 5 mg BID@09,17 PRN PO sbp<80 Last administered on 12/04/16 09: 00; Admin Dose 5 MG; Start 11/28/16 at 17:00 Albumin Human (Albumin Human 25%) 100 ml @ 100 mls/hr ONCE PRN IV after paracentesis; Start 12/02/16 at 02:00 Morphine Sulfate (morphine) 2 mg Q3H PRN IV PAIN LEVEL 7-10 Last administered on 12/06/16 10:15; Admin Dose 2 MG; Start 12/04/16 at 10:00 Harpreet Cee DO Dec 06, 2016 14:06
--- NOTE | 2016-12-06 17:50 | CONS ---
Date/Time of Note Date/Time of Note DATE: 12/06/16 TIME: 17:48 Assessment/Plan Assessment/Plan Additional Assessment/Plan Assessment/Plan Additional Assessment/Plan ASSESSMENT: 1. Refractory ascites. 2. Ischemic cardiomyopathy. 3. End-stage renal disease. 4. Cirrhosis of liver. Plan at this point is to proceed with paracentesis to make him comfortable. I have discussed with the radiologist ____ should have some drainage procedures, and they have agreed, and IR is planning to do it. brain CT negative Hip x ray negative pleurex catheter,discussed with ,done today,pt,very happy. he was educated regarding possible infection and removal of catheter,pt understood nad insisted on Tunnel catheter Consultation Date/Type/Reason Admit Date/Time Nov 20, 2016 at 09:34 Initial Consult Date 11/21/16 Type of Consultation: cv Referring Provider: DEMETRA BRUNO MD 24 HR Interval Summary Constitutional: improved Exam/Review of Systems Vital Signs Vitals Vital Signs Date Time Temp Pulse Resp B/P Pulse Ox O2 Delivery O2 Flow Rate FiO2 12/06/16 16:07 94 12/06/16 15:46 98.0 18 108/57 98 12/06/16 13:20 Nasal Cannula 3.0 Intake and Output 12/05/16 12/05/16 12/06/16 15:00 23:00 07:00 Intake Total 450 ml Balance 450 ml Exam Constitutional: alert, oriented, well developed Psych: nl mood/affect, no complaints Head: atraumatic, normocephalic Eyes: EOMI, PERRL, nl conjunctiva, nl lids, nl sclera ENMT: nl external ears & nose, nl lips & teeth, nl nasal mucosa & septum Neck: non-tender, supple Respiratory: clear to auscultation, normal air movement Cardiovascular: nl pulses, regular rate and rhythm Gastrointestinal: nl liver, spleen, non-tender, soft Musculoskeletal: nl extremities to inspection, nl gait and stance Extremities: normal pulses 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: SPECIAL AGENT IN CHARGE 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, nl mental status, nl speech, nl strength Skin: nl turgor, No rash or lesions Lymph: nl lymph nodes Results Result Diagram: 12/05/16 0530 12/05/16 0530 Results 24 hrs Laboratory Tests Test 12/05/16 21:38 12/06/16 08:00 12/06/16 17:41 Bedside Glucose 166 123 91 Medications Medications Current Medications Lorazepam (Ativan) 0.5 mg Q8H PRN PO ANXIETY Last administered on 12/03/16 05: 37; Admin Dose 0.5 MG; Start 11/20/16 at 12:00 Ondansetron HCl (Zofran Inj) 4 mg Q6H PRN IV NAUSEA AND/OR VOMITING Last administered on 11/23/16 05:32; Admin Dose 4 MG; Start 11/20/16 at 12:00 Aspirin (Aspirin) 81 mg DAILY PO Last administered on 12/05/16 08:34; Admin Dose 81 MG; Start 11/21/16 at 09:00 Nitroglycerin (Nitroglycerin (Sl Tab) 0.4 Mg) 1 tab Q5M PRN SL CHEST PAIN; Start 11/20/16 at 12:00 Acetaminophen (Tylenol Tab) 650 mg Q6H PRN PO PAIN LEVEL 1-3 OR FEVER Last administered on 12/03/16 22:25; Admin Dose 650 MG; Start 11/20/16 at 12:00 Zolpidem Tartrate (Ambien) 5 mg QHS PRN PO INSOMNIA; Start 11/20/16 at 12:00 Pantoprazole (Protonix Tab) 40 mg DAILY@06 PO Last administered on 12/06/16 06 :32; Admin Dose 40 MG; Start 11/21/16 at 06:00 Miscellaneous Information 1 ea NOTE XX ; Start 11/20/16 at 12:30 Glucose (Glutose) 15 gm Q15M PRN PO DECREASED GLUCOSE; Start 11/20/16 at 12:30 Glucose (Glutose) 22.5 gm Q15M PRN PO DECREASED GLUCOSE; Start 11/20/16 at 12: 30 Dextrose (D50w Syringe) 25 ml Q15M PRN IV DECREASED GLUCOSE; Start 11/20/16 at 12:30 Dextrose (D50w Syringe) 50 ml Q15M PRN IV DECREASED GLUCOSE; Start 11/20/16 at 12:30 Glucagon (Glucagen) 1 mg Q15M PRN IM DECREASED GLUCOSE; Start 11/20/16 at 12:30 Glucose (Glutose) 15 gm Q15M PRN BUCCAL DECREASED GLUCOSE; Start 11/20/16 at 12 :30 Levothyroxine Sodium (Synthroid) 125 mcg DAILY@06 PO Last administered on 06:32; Admin Dose 125 MCG; Start 11/22/16 at 06:00 Guaifenesin (Robitussin Liquid Cup) 100 mg Q6H PRN PO COUGH Last administered on 11/25/16 21:58; Admin Dose 100 MG; Start 11/23/16 at 16:30 IV Flush (NS 10 ml) 10 ml PRN PRN IV IV PROTOCOL; Start 11/24/16 at 15:30 Insulin Glargine (Lantus) 15 unit HS SC Last administered on 12/05/16 21:41; Admin Dose 15 UNIT; Start 11/26/16 at 21:00 Midodrine 5 mg 5 mg BID@17 PRN PO sbp<80 Last administered on 12/04/16 09: 00; Admin Dose 5 MG; Start 11/28/16 at 17:00 Albumin Human (Albumin Human 25%) 100 ml @ 100 mls/hr ONCE PRN IV after paracentesis; Start 12/02/16 at 02:00 Morphine Sulfate (morphine) 2 mg Q3H PRN IV PAIN LEVEL 7-10 Last administered on 12/06/16 15:16; Admin Dose 2 MG; Start 12/04/16 at 10:00 LOR MASON MD Dec 06, 2016 17:50
--- NOTE | 2016-12-06 21:51 | CONS ---
Date/Time of Note Date/Time of Note DATE: 12/06/16 TIME: 21:44 Assessment/Plan Assessment/Plan Chief Complaint/Hosp Course Next HD in AM Problems: Additional Assessment/Plan Pt continues to show recurrent ascites & requires frequent paracentasis. Must continue HD Per schedule and close f/u Pt on Epo for anemia Consultation Date/Type/Reason Admit Date/Time Nov 20, 2016 at 09:34 Initial Consult Date 11/21/16 Type of Consultation: renal Referring Provider: DEMETRA BRUNO MD 24 HR Interval Summary Free Text/Dictation No significant change is noted Exam/Review of Systems Vital Signs Vitals Vital Signs Date Time Temp Pulse Resp B/P Pulse Ox O2 Delivery O2 Flow Rate FiO2 12/06/16 20:22 97.7 103 16 130/56 91 12/06/16 13:20 Nasal Cannula 3.0 Intake and Output 12/05/16 12/05/16 12/06/16 15:00 23:00 07:00 Intake Total 450 ml Balance 450 ml Exam Constitutional: alert, oriented, well developed Psych: nl mood/affect, no complaints Head: atraumatic, normocephalic Eyes: EOMI, PERRL, nl conjunctiva, nl lids, nl sclera ENMT: nl external ears & nose, nl lips & teeth, nl nasal mucosa & septum Neck: non-tender, supple Respiratory: clear to auscultation, normal air movement Cardiovascular: nl pulses, regular rate and rhythm Gastrointestinal: ascites, nl liver, spleen, non-tender, soft Musculoskeletal: nl extremities to inspection, nl gait and stance Extremities: normal pulses 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: LOSS PREVENTION AUDITOR 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, nl mental status, nl speech, nl strength Results Result Diagram: 12/05/1652912/05/1630 Results 24 hrs Laboratory Tests Test 12/06/16 08:00 12/06/16 17:41 12/06/16 21:18 Bedside Glucose 123 91 140 Medications Medications Current Medications Lorazepam (Ativan) 0.5 mg Q8H PRN PO ANXIETY Last administered on 12/03/16 05: 37; Admin Dose 0.5 MG; Start 11/20/16 at 12:00 Ondansetron HCl (Zofran Inj) 4 mg Q6H PRN IV NAUSEA AND/OR VOMITING Last administered on 11/23/16 05:32; Admin Dose 4 MG; Start 11/20/16 at 12:00 Aspirin (Aspirin) 81 mg DAILY PO Last administered on 12/05/16 08:34; Admin Dose 81 MG; Start 11/21/16 at 09:00 Nitroglycerin (Nitroglycerin (Sl Tab) 0.4 Mg) 1 tab Q5M PRN SL CHEST PAIN; Start 11/20/16 at 12:00 Acetaminophen (Tylenol Tab) 650 mg Q6H PRN PO PAIN LEVEL 1-3 OR FEVER Last administered on 12/03/16 22:25; Admin Dose 650 MG; Start 11/20/16 at 12:00 Zolpidem Tartrate (Ambien) 5 mg QHS PRN PO INSOMNIA; Start 11/20/16 at 12:00 Pantoprazole (Protonix Tab) 40 mg DAILY@06 PO Last administered on 12/06/16 06 :32; Admin Dose 40 MG; Start 11/21/16 at 06:00 Miscellaneous Information 1 ea NOTE XX ; Start 11/20/16 at 12:30 Glucose (Glutose) 15 gm Q15M PRN PO DECREASED GLUCOSE; Start 11/20/16 at 12:30 Glucose (Glutose) 22.5 gm Q15M PRN PO DECREASED GLUCOSE; Start 11/20/16 at 12: 30 Dextrose (D50w Syringe) 25 ml Q15M PRN IV DECREASED GLUCOSE; Start 11/20/16 at 12:30 Dextrose (D50w Syringe) 50 ml Q15M PRN IV DECREASED GLUCOSE; Start 11/20/16 at 12:30 Glucagon (Glucagen) 1 mg Q15M PRN IM DECREASED GLUCOSE; Start 11/20/16 at 12:30 Glucose (Glutose) 15 gm Q15M PRN BUCCAL DECREASED GLUCOSE; Start 11/20/16 at 12 :30 Levothyroxine Sodium (Synthroid) 125 mcg DAILY@06 PO Last administered on 06:32; Admin Dose 125 MCG; Start 11/22/16 at 06:00 Guaifenesin (Robitussin Liquid Cup) 100 mg Q6H PRN PO COUGH Last administered on 11/25/16 21:58; Admin Dose 100 MG; Start 11/23/16 at 16:30 IV Flush (NS 10 ml) 10 ml PRN PRN IV IV PROTOCOL; Start 11/24/16 at 15:30 Insulin Glargine (Lantus) 15 unit HS SC Last administered on 12/05/16 21:41; Admin Dose 15 UNIT; Start 11/26/16 at 21:00 Midodrine 5 mg 5 mg BID@,17 PRN PO sbp<80 Last administered on 12/04/16 09: 00; Admin Dose 5 MG; Start 11/28/16 at 17:00 Albumin Human (Albumin Human 25%) 100 ml @ 100 mls/hr ONCE PRN IV after paracentesis; Start 12/02/16 at 02:00 Morphine Sulfate (morphine) 2 mg Q3H PRN IV PAIN LEVEL 7-10 Last administered on 12/06/16 18:28; Admin Dose 2 MG; Start 12/04/16 at 10:00 MILADY ANDERSON MD Dec 06, 2016 21:51
[2016-12-06] MEDS: INSULIN GLARGINE [LANtus] 3 ML PEN SC SCH (21:57)
[2016-12-07] VITALS (14 sets, daily range): BP systolic 83–151; BP diastolic 48–95; PULSE 103–112; RESP 16–18
[2016-12-07] MEDS: morphine 2 MG INJ IV PRN ×6 (00:29→21:15)
[2016-12-07] MEDS: LEVOTHYROXINE 125 MCG TAB PO SCH (06:35)
[2016-12-07] MEDS: PANTOPRAZOLE (EC) 40 MG TAB PO SCH (06:35)
[2016-12-07 07:28] LABS: BASOPHIL # 0.1 10^3/ul (0.0-0.1); BASOPHILS % 0.5 % (0.0-2.0); EOSINOPHILS # 0.3 10^3/ul (0.0-0.5); EOSINOPHILS % 2.7 % (0.0-7.0); HEMATOCRIT 27.6 % (42.0-52.0); HEMOGLOBIN 9.3 g/dl (14.0-18.0); LYMPHOCYTES # 0.8 10^3/ul (0.8-2.9); LYMPHOCYTES % 8.3 % (15.0-51.0); MEAN CORPUSCULAR HEMOGLOBIN 29.4 pg (29.0-33.0); MEAN CORPUSCULAR HGB CONC 33.7 g/dl (32.0-37.0); MEAN CORPUSCULAR VOLUME 87.2 fl (82.0-101.0); MEAN PLATELET VOLUME 6.6 fl (7.4-10.4); MONOCYTES % 10.2 % (0.0-11.0); NEUTROPHILS % 78.3 % (39.0-77.0); PLATELET COUNT 229 10^3/UL (140-440); RED BLOOD COUNT 3.17 10^6/ul (4.70-6.10); RED CELL DISTRIBUTION WIDTH 19.8 % (11.5-14.5); UNCORRECTED WBC 10.2 10^3/ul (4.8-10.8); WHITE BLOOD COUNT 10.2 10^3/ul (4.8-10.8)
[2016-12-07 07:34] LABS: CONDITION 1; LH ANALYZER COMMENTS 1
[2016-12-07 07:41] LABS: POTASSIUM 5.2 mmol/L (3.5-5.1)
[2016-12-07 07:44] LABS: CREATININE 5.05 mg/dl (0.61-1.24)
[2016-12-07] MEDS: INSULIN ASPART [NOVOLOG] 3 ML PEN SC SCH ×4 (07:55→21:00)
[2016-12-07] MEDS: ASPIRIN 81 MG TAB PO SCH (09:16)
--- NOTE | 2016-12-07 11:29 | PN ---
Date/Time of Note Date/Time of Note DATE: 12/07/16 TIME: 11:12 Assessment/Plan VTE Prophylaxis VTE Prophylaxis Intervention: other Lines/Catheters IV [facility] PICC Line Central line still needed: Yes Urinary Cath still in place: No Assessment/Plan Assessment/Plan - Status post mechanical fall yesterday most likely secondary to low blood pressure. Brain CT is negative, hip x-ray is negative for fracture. - Severe hypotension requiring pressors, resolved. - Congestive heart failure exacerbation with ejection fraction of 20% per last echo. - Continue to remove fluids with hemodialysis. - Ascites, status post paracentesis on11/20, 12/02. - sp drain placement. - End-stage renal disease, hemodialysis-dependent. - per Dr. Maddox is following from nephrology standpoint. Continue patient on hemodialysis. - Coronary artery disease status post coronary artery bypass graft. Continue patient on aspirin and Coreg. - per Dr. Cee is following from cardiology standpoint. - Hypothyroidism. TSH is 14, Synthroid increased to 125. - Diabetes mellitus type 2. Continue to monitor blood sugar with mild algorithm scale, NovoLog coverage. - Hemodialysis access, status post right AV fistulogram by Dr. Loco, vascular surgery on 11/21. - Liver cirrhosis and portal hypertension. Dr. Kirkpatrick is following in gastroenterology consultation. - Hyperkalemia 5.2 - per electrical/instrument technician - kayexalate 15 gm po x 1 - AM labs. Continue Protonix for peptic ulcer disease prophylaxis. Further recommendations based on clinical course. Discharge planning to send patient home after arranging for vacuum bottles for Peritoneal Dialysis at home. Plan of care discussed with Dr. Vick/staff. Subjective 24 Hr Interval Summary Eyes: no complaints ENT: no complaints Respiratory: no complaints Cardiovascular: edema (BLE) Gastrointestinal: other (distention) Musculoskeletal: no complaints Skin: no complaints Neurologic: no complaints Endocrine: no complaints Lymphatic: no complaints Psychological: no complaints Immunologic: no complaints Exam/Review of Systems Vital Signs Vitals Vital Signs Date Time Temp Pulse Resp B/P Pulse Ox O2 Delivery O2 Flow Rate FiO2 12/07/16 09:05 98.0 57 18 85/73 98 12/06/16 13:20 Nasal Cannula 3.0 Intake and Output 12/06/16 12/06/16 12/07/16 15:00 23:00 07:00 Intake Total 550 ml 700 ml 350 ml Output Total 6000 ml 2500 ml Balance -5450 ml -1800 ml 350 ml Exam Constitutional: alert, oriented, other Psych: no complaints Head: atraumatic Eyes: EOMI, nl sclera ENMT: nl external ears & nose Neck: non-tender Respiratory: diminished breath sounds Cardiovascular: nl pulses Gastrointestinal: ascites, distended Musculoskeletal: swelling Extremities: edema (BLE) 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: nl mental status, nl speech Skin: other Lymph: nontender Results Result Diagram: 12/07/1635 12/07/16 0635 Results 24 hrs Laboratory Tests Test 12/06/16 17:41 12/06/16 21:18 12/07/16 06:35 12/07/16 07:24 Bedside Glucose 91 140 104 Anion Gap 21 H Basophils # 0.1 Basophils % 0.5 Blood Morphology Comment Blood Urea Nitrogen 44 H Calcium Level 8.0 L Carbon Dioxide Level 22 Chloride Level 94 L Creatinine 5.05 H Eosinophils # 0.3 Eosinophils % 2.7 Glucose Level 97 Hematocrit 27.6 L Hemoglobin 9.3 L Lymphocytes # 0.8 Lymphocytes % 8.3 L Mean Corpuscular Hemoglobin 29.4 Mean Corpuscular Hemoglobin Concent 33.7 Mean Corpuscular Volume 87.2 Mean Platelet Volume 6.6 L Monocytes # 1.0 H Monocytes % 10.2 Neutrophils # 8.0 H Neutrophils % 78.3 H Nucleated Red Blood Cells # 0.0 Nucleated Red Blood Cells % 0.0 Platelet Count 229 Potassium Level 5.2 H Red Blood Count 3.17 L Red Cell Distribution Width 19.8 H Sodium Level 132 L White Blood Count 10.2 Medications Medications Current Medications Lorazepam (Ativan) 0.5 mg Q8H PRN PO ANXIETY Last administered on 12/03/16 05: 37; Admin Dose 0.5 MG; Start 11/20/16 at 12:00 Ondansetron HCl (Zofran Inj) 4 mg Q6H PRN IV NAUSEA AND/OR VOMITING Last administered on 11/23/16 05:32; Admin Dose 4 MG; Start 11/20/16 at 12:00 Aspirin (Aspirin) 81 mg DAILY PO Last administered on 12/07/16 09:16; Admin Dose 81 MG; Start 11/21/16 at 09:00 Nitroglycerin (Nitroglycerin (Sl Tab) 0.4 Mg) 1 tab Q5M PRN SL CHEST PAIN; Start 11/20/16 at 12:00 Acetaminophen (Tylenol Tab) 650 mg Q6H PRN PO PAIN LEVEL 1-3 OR FEVER Last administered on 12/03/16 22:25; Admin Dose 650 MG; Start 11/20/16 at 12:00 Zolpidem Tartrate (Ambien) 5 mg QHS PRN PO INSOMNIA; Start 11/20/16 at 12:00 Pantoprazole (Protonix Tab) 40 mg DAILY@06 PO Last administered on 12/07/16 06 :35; Admin Dose 40 MG; Start 11/21/16 at 06:00 Miscellaneous Information 1 ea NOTE XX ; Start 11/20/16 at 12:30 Glucose (Glutose) 15 gm Q15M PRN PO DECREASED GLUCOSE; Start 11/20/16 at 12:30 Glucose (Glutose) 22.5 gm Q15M PRN PO DECREASED GLUCOSE; Start 11/20/16 at 12: 30 Dextrose (D50w Syringe) 25 ml Q15M PRN IV DECREASED GLUCOSE; Start 11/20/16 at 12:30 Dextrose (D50w Syringe) 50 ml Q15M PRN IV DECREASED GLUCOSE; Start 11/20/16 at 12:30 Glucagon (Glucagen) 1 mg Q15M PRN IM DECREASED GLUCOSE; Start 11/20/16 at 12:30 Glucose (Glutose) 15 gm Q15M PRN BUCCAL DECREASED GLUCOSE; Start 11/20/16 at 12 :30 Levothyroxine Sodium (Synthroid) 125 mcg DAILY@06 PO Last administered on 06:35; Admin Dose 125 MCG; Start 11/22/16 at 06:00 Guaifenesin (Robitussin Liquid Cup) 100 mg Q6H PRN PO COUGH Last administered on 11/25/16 21:58; Admin Dose 100 MG; Start 11/23/16 at 16:30 IV Flush (NS 10 ml) 10 ml PRN PRN IV IV PROTOCOL; Start 11/24/16 at 15:30 Insulin Glargine (Lantus) 15 unit HS SC Last administered on 12/06/16 21:57; Admin Dose 15 UNIT; Start 11/26/16 at 21:00 Midodrine 5 mg 5 mg BID@09,17 PRN PO sbp<80 Last administered on 12/04/16 09: 00; Admin Dose 5 MG; Start 11/28/16 at 17:00 Albumin Human (Albumin Human 25%) 100 ml @ 100 mls/hr ONCE PRN IV after paracentesis; Start 12/02/16 at 02:00 Morphine Sulfate (morphine) 2 mg Q3H PRN IV PAIN LEVEL 7-10 Last administered on 12/07/16 10:25; Admin Dose 2 MG; Start 12/04/16 at 10:00 PEBBLES REYES Dec 07, 2016 11:22
--- NOTE | 2016-12-07 13:07 | CONS ---
Date/Time of Note Date/Time of Note DATE: 12/07/16 TIME: 13:05 Assessment/Plan Assessment/Plan Additional Assessment/Plan Hypotension, intermittent AV fistula stenosis status post venoplasty Acute decompensated systolic and diastolic heart failure Cardiomyopathy, likely ischemic and nonischemic in origin with an ejection fraction less than 20%. (Denied cardiac transplant at [facility]) Biventricular pacemaker and ICD Mitral and tricuspid valve regurgitation. Severe pulmonary hypertension. End-stage renal disease on hemodialysis Ascites status post paracentesis -Patient abdominal drain placed yesterday. Fluid management via hemodialysis as per our nephrology colleagues. Patient with irregularities noted on telemetry. Would request pacemaker interrogation today. Consultation Date/Type/Reason Admit Date/Time Nov 20, 2016 at 09:34 Initial Consult Date 11/21/16 Type of Consultation: cv Referring Provider: DEMETRA BRUNO MD 24 HR Interval Summary Free Text/Dictation Denies shortness of breath, chest pain Exam/Review of Systems Vital Signs Vitals Vital Signs Date Time Temp Pulse Resp B/P Pulse Ox O2 Delivery O2 Flow Rate FiO2 12/07/16 12:42 103 12/07/16 11:50 98.2 17 83/48 100 12/06/16 13:20 Nasal Cannula 3.0 Intake and Output 12/06/16 12/06/16 12/07/16 14:59 22:59 06:59 Intake Total 550 ml 700 ml 350 ml Output Total 6000 ml 2500 ml Balance -5450 ml -1800 ml 350 ml Exam No apparent distress Constitutional: alert, frail, oriented Head: normocephalic Neck: supple Respiratory: other (Coarse breath sounds bilaterally, no wheezing) Cardiovascular: other (S1-S2 heard), regular rate and rhythm Gastrointestinal: ascites, bowel sounds, distended, soft Extremities: edema Results Result Diagram: 12/07/16 0635 12/07/16 0635 Results 24 hrs Laboratory Tests Test 12/06/16 17:41 12/06/16 21:18 12/07/16 06:35 12/07/16 07:24 Bedside Glucose 91 140 104 Anion Gap 21 H Basophils # 0.1 Basophils % 0.5 Blood Morphology Comment Blood Urea Nitrogen 44 H Calcium Level 8.0 L Carbon Dioxide Level 22 Chloride Level 94 L Creatinine 5.05 H Eosinophils # 0.3 Eosinophils % 2.7 Glucose Level 97 Hematocrit 27.6 L Hemoglobin 9.3 L Lymphocytes # 0.8 Lymphocytes % 8.3 L Mean Corpuscular Hemoglobin 29.4 Mean Corpuscular Hemoglobin Concent 33.7 Mean Corpuscular Volume 87.2 Mean Platelet Volume 6.6 L Monocytes # 1.0 H Monocytes % 10.2 Neutrophils # 8.0 H Neutrophils % 78.3 H Nucleated Red Blood Cells # 0.0 Nucleated Red Blood Cells % 0.0 Platelet Count 229 Potassium Level 5.2 H Red Blood Count 3.17 L Red Cell Distribution Width 19.8 H Sodium Level 132 L White Blood Count 10.2 Test 12/07/16 11:55 Bedside Glucose 139 Medications Medications Current Medications Lorazepam (Ativan) 0.5 mg Q8H PRN PO ANXIETY Last administered on 12/03/16 05: 37; Admin Dose 0.5 MG; Start 11/20/16 at 12:00 Ondansetron HCl (Zofran Inj) 4 mg Q6H PRN IV NAUSEA AND/OR VOMITING Last administered on 11/23/16 05:32; Admin Dose 4 MG; Start 11/20/16 at 12:00 Aspirin (Aspirin) 81 mg DAILY PO Last administered on 12/07/16 09:16; Admin Dose 81 MG; Start 11/21/16 at 09:00 Nitroglycerin (Nitroglycerin (Sl Tab) 0.4 Mg) 1 tab Q5M PRN SL CHEST PAIN; Start 11/20/16 at 12:00 Acetaminophen (Tylenol Tab) 650 mg Q6H PRN PO PAIN LEVEL 1-3 OR FEVER Last administered on 12/03/16 22:25; Admin Dose 650 MG; Start 11/20/16 at 12:00 Zolpidem Tartrate (Ambien) 5 mg QHS PRN PO INSOMNIA; Start 11/20/16 at 12:00 Pantoprazole (Protonix Tab) 40 mg DAILY@06 PO Last administered on 12/07/16 06 :35; Admin Dose 40 MG; Start 11/21/16 at 06:00 Miscellaneous Information 1 ea NOTE XX ; Start 11/20/16 at 12:30 Glucose (Glutose) 15 gm Q15M PRN PO DECREASED GLUCOSE; Start 11/20/16 at 12:30 Glucose (Glutose) 22.5 gm Q15M PRN PO DECREASED GLUCOSE; Start 11/20/16 at 12: 30 Dextrose (D50w Syringe) 25 ml Q15M PRN IV DECREASED GLUCOSE; Start 11/20/16 at 12:30 Dextrose (D50w Syringe) 50 ml Q15M PRN IV DECREASED GLUCOSE; Start 11/20/16 at 12:30 Glucagon (Glucagen) 1 mg Q15M PRN IM DECREASED GLUCOSE; Start 11/20/16 at 12:30 Glucose (Glutose) 15 gm Q15M PRN BUCCAL DECREASED GLUCOSE; Start 11/20/16 at 12 :30 Levothyroxine Sodium (Synthroid) 125 mcg DAILY@06 PO Last administered on 06:35; Admin Dose 125 MCG; Start 11/22/16 at 06:00 Guaifenesin (Robitussin Liquid Cup) 100 mg Q6H PRN PO COUGH Last administered on 11/25/16 21:58; Admin Dose 100 MG; Start 11/23/16 at 16:30 IV Flush (NS 10 ml) 10 ml PRN PRN IV IV PROTOCOL; Start 11/24/16 at 15:30 Insulin Glargine (Lantus) 15 unit HS SC Last administered on 12/06/16 21:57; Admin Dose 15 UNIT; Start 11/26/16 at 21:00 Midodrine 5 mg 5 mg BID@,17 PRN PO sbp<80 Last administered on 12/04/16 09: 00; Admin Dose 5 MG; Start 11/28/16 at 17:00 Albumin Human (Albumin Human 25%) 100 ml @ 100 mls/hr ONCE PRN IV after paracentesis; Start 12/02/16 at 02:00 Morphine Sulfate (morphine) 2 mg Q3H PRN IV PAIN LEVEL 7-10 Last administered on 12/07/16 10:25; Admin Dose 2 MG; Start 12/04/16 at 10:00 Harpreet Cee DO Dec 07, 2016 13:07
--- NOTE | 2016-12-07 17:46 | CONS ---
Date/Time of Note Date/Time of Note DATE: 12/07/16 TIME: 17:43 Assessment/Plan Assessment/Plan Additional Assessment/Plan Assessment/Plan Additional Assessment/Plan ASSESSMENT: 1. Refractory ascites. 2. Ischemic cardiomyopathy. 3. End-stage renal disease. 4. Cirrhosis of liver. 5.s/p pleurex drain for ascites Plan drain ascitic fluid PRN Consultation Date/Type/Reason Admit Date/Time Nov 20, 2016 at 09:34 Initial Consult Date 11/21/16 Type of Consultation: cv Referring Provider: DEMETRA BRUNO MD 24 HR Interval Summary Free Text/Dictation wants to drain fluid regularly Exam/Review of Systems Vital Signs Vitals Vital Signs Date Time Temp Pulse Resp B/P Pulse Ox O2 Delivery O2 Flow Rate FiO2 12/07/16 16:06 108 12/07/16 15:47 97.6 18 130/63 99 12/06/16 13:20 Nasal Cannula 3.0 Intake and Output 12/06/16 12/06/16 12/07/16 14:59 22:59 06:59 Intake Total 550 ml 700 ml 350 ml Output Total 6000 ml 2500 ml Balance -5450 ml -1800 ml 350 ml Exam Constitutional: alert, oriented, well developed Psych: nl mood/affect, no complaints Neck: non-tender, supple Respiratory: clear to auscultation, normal air movement Cardiovascular: nl pulses, regular rate and rhythm Gastrointestinal: ascites Extremities: normal pulses Results Result Diagram: 12/07/16 0635 12/07/16 0635 Results 24 hrs Laboratory Tests Test 12/06/16 21:18 12/07/16 06:35 12/07/16 07:24 12/07/16 11:55 Bedside Glucose 140 104 139 Anion Gap 21 H Basophils # 0.1 Basophils % 0.5 Blood Morphology Comment Blood Urea Nitrogen 44 H Calcium Level 8.0 L Carbon Dioxide Level 22 Chloride Level 94 L Creatinine 5.05 H Eosinophils # 0.3 Eosinophils % 2.7 Glucose Level 97 Hematocrit 27.6 L Hemoglobin 9.3 L Lymphocytes # 0.8 Lymphocytes % 8.3 L Mean Corpuscular Hemoglobin 29.4 Mean Corpuscular Hemoglobin Concent 33.7 Mean Corpuscular Volume 87.2 Mean Platelet Volume 6.6 L Monocytes # 1.0 H Monocytes % 10.2 Neutrophils # 8.0 H Neutrophils % 78.3 H Nucleated Red Blood Cells # 0.0 Nucleated Red Blood Cells % 0.0 Platelet Count 229 Potassium Level 5.2 H Red Blood Count 3.17 L Red Cell Distribution Width 19.8 H Sodium Level 132 L White Blood Count 10.2 Medications Medications Current Medications Lorazepam (Ativan) 0.5 mg Q8H PRN PO ANXIETY Last administered on 12/03/16 05: 37; Admin Dose 0.5 MG; Start 11/20/16 at 12:00 Ondansetron HCl (Zofran Inj) 4 mg Q6H PRN IV NAUSEA AND/OR VOMITING Last administered on 11/23/16 05:32; Admin Dose 4 MG; Start 11/20/16 at 12:00 Aspirin (Aspirin) 81 mg DAILY PO Last administered on 12/07/16 09:16; Admin Dose 81 MG; Start 11/21/16 at 09:00 Nitroglycerin (Nitroglycerin (Sl Tab) 0.4 Mg) 1 tab Q5M PRN SL CHEST PAIN; Start 11/20/16 at 12:00 Acetaminophen (Tylenol Tab) 650 mg Q6H PRN PO PAIN LEVEL 1-3 OR FEVER Last administered on 12/03/16 22:25; Admin Dose 650 MG; Start 11/20/16 at 12:00 Zolpidem Tartrate (Ambien) 5 mg QHS PRN PO INSOMNIA; Start 11/20/16 at 12:00 Pantoprazole (Protonix Tab) 40 mg DAILY@06 PO Last administered on 12/07/16 06 :35; Admin Dose 40 MG; Start 11/21/16 at 06:00 Miscellaneous Information 1 ea NOTE XX ; Start 11/20/16 at 12:30 Glucose (Glutose) 15 gm Q15M PRN PO DECREASED GLUCOSE; Start 11/20/16 at 12:30 Glucose (Glutose) 22.5 gm Q15M PRN PO DECREASED GLUCOSE; Start 11/20/16 at 12: 30 Dextrose (D50w Syringe) 25 ml Q15M PRN IV DECREASED GLUCOSE; Start 11/20/16 at 12:30 Dextrose (D50w Syringe) 50 ml Q15M PRN IV DECREASED GLUCOSE; Start 11/20/16 at 12:30 Glucagon (Glucagen) 1 mg Q15M PRN IM DECREASED GLUCOSE; Start 11/20/16 at 12:30 Glucose (Glutose) 15 gm Q15M PRN BUCCAL DECREASED GLUCOSE; Start 11/20/16 at 12 :30 Levothyroxine Sodium (Synthroid) 125 mcg DAILY@06 PO Last administered on 06:35; Admin Dose 125 MCG; Start 11/22/16 at 06:00 Guaifenesin (Robitussin Liquid Cup) 100 mg Q6H PRN PO COUGH Last administered on 11/25/16 21:58; Admin Dose 100 MG; Start 11/23/16 at 16:30 IV Flush (NS 10 ml) 10 ml PRN PRN IV IV PROTOCOL; Start 11/24/16 at 15:30 Insulin Glargine (Lantus) 15 unit HS SC Last administered on 12/06/16 21:57; Admin Dose 15 UNIT; Start 11/26/16 at 21:00 Midodrine 5 mg 5 mg BID@09,17 PRN PO sbp<80 Last administered on 12/04/16 09: 00; Admin Dose 5 MG; Start 11/28/16 at 17:00 Albumin Human (Albumin Human 25%) 100 ml @ 100 mls/hr ONCE PRN IV after paracentesis; Start 12/02/16 at 02:00 Morphine Sulfate (morphine) 2 mg Q3H PRN IV PAIN LEVEL 7-10 Last administered on 12/07/16 14:23; Admin Dose 2 MG; Start 12/04/16 at 10:00 LOR MASON MD Dec 07, 2016 17:46
--- NOTE | 2016-12-07 18:56 | CONS ---
Date/Time of Note Date/Time of Note DATE: 12/07/16 TIME: 18:53 Assessment/Plan Assessment/Plan Chief Complaint/Hosp Course Next HD in AM Problems: Additional Assessment/Plan Pt had HD yesterday and will schedule next HD tomorrow He has been getting HD 4Xwk Will leave ascites management per GI Consultation Date/Type/Reason Admit Date/Time Nov 20, 2016 at 09:34 Initial Consult Date 11/21/16 Type of Consultation: renal Referring Provider: DEMETRA BRUNO MD 24 HR Interval Summary Constitutional: improved Exam/Review of Systems Vital Signs Vitals Vital Signs Date Time Temp Pulse Resp B/P Pulse Ox O2 Delivery O2 Flow Rate FiO2 12/07/16 16:06 108 12/07/16 15:47 97.6 18 130/63 99 12/06/16 13:20 Nasal Cannula 3.0 Intake and Output 12/06/16 12/06/16 12/07/16 15:00 23:00 07:00 Intake Total 550 ml 700 ml 350 ml Output Total 6000 ml 2500 ml Balance -5450 ml -1800 ml 350 ml Exam Constitutional: alert, oriented, well developed Psych: nl mood/affect, no complaints Head: atraumatic, normocephalic Respiratory: clear to auscultation, normal air movement Cardiovascular: nl pulses, regular rate and rhythm Gastrointestinal: ascites, nl liver, spleen, non-tender, other (Pt had a peritoenal cath place for intermittant drainage & he wants to drain continuously ), soft Musculoskeletal: nl extremities to inspection, nl gait and stance Extremities: normal pulses 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: MASTER CONTROL TECHNICIAN 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, nl mental status, nl speech, nl strength Skin: nl turgor, No rash or lesions Results Result Diagram: 12/07/16 0635 12/07/16 0635 Results 24 hrs Laboratory Tests Test 12/06/16 21:18 12/07/16 06:35 12/07/16 07:24 12/07/16 11:55 Bedside Glucose 140 104 139 Anion Gap 21 H Basophils # 0.1 Basophils % 0.5 Blood Morphology Comment Blood Urea Nitrogen 44 H Calcium Level 8.0 L Carbon Dioxide Level 22 Chloride Level 94 L Creatinine 5.05 H Eosinophils # 0.3 Eosinophils % 2.7 Glucose Level 97 Hematocrit 27.6 L Hemoglobin 9.3 L Lymphocytes # 0.8 Lymphocytes % 8.3 L Mean Corpuscular Hemoglobin 29.4 Mean Corpuscular Hemoglobin Concent 33.7 Mean Corpuscular Volume 87.2 Mean Platelet Volume 6.6 L Monocytes # 1.0 H Monocytes % 10.2 Neutrophils # 8.0 H Neutrophils % 78.3 H Nucleated Red Blood Cells # 0.0 Nucleated Red Blood Cells % 0.0 Platelet Count 229 Potassium Level 5.2 H Red Blood Count 3.17 L Red Cell Distribution Width 19.8 H Sodium Level 132 L White Blood Count 10.2 Test 12/07/16 17:35 Bedside Glucose 112 Medications Medications Current Medications Lorazepam (Ativan) 0.5 mg Q8H PRN PO ANXIETY Last administered on 12/03/16 05: 37; Admin Dose 0.5 MG; Start 11/20/16 at 12:00 Ondansetron HCl (Zofran Inj) 4 mg Q6H PRN IV NAUSEA AND/OR VOMITING Last administered on 11/23/16 05:32; Admin Dose 4 MG; Start 11/20/16 at 12:00 Aspirin (Aspirin) 81 mg DAILY PO Last administered on 12/07/16 09:16; Admin Dose 81 MG; Start 11/21/16 at 09:00 Nitroglycerin (Nitroglycerin (Sl Tab) 0.4 Mg) 1 tab Q5M PRN SL CHEST PAIN; Start 11/20/16 at 12:00 Acetaminophen (Tylenol Tab) 650 mg Q6H PRN PO PAIN LEVEL 1-3 OR FEVER Last administered on 12/03/16 22:25; Admin Dose 650 MG; Start 11/20/16 at 12:00 Zolpidem Tartrate (Ambien) 5 mg QHS PRN PO INSOMNIA; Start 11/20/16 at 12:00 Pantoprazole (Protonix Tab) 40 mg DAILY@06 PO Last administered on 12/07/16 06 :35; Admin Dose 40 MG; Start 11/21/16 at 06:00 Miscellaneous Information 1 ea NOTE XX ; Start 11/20/16 at 12:30 Glucose (Glutose) 15 gm Q15M PRN PO DECREASED GLUCOSE; Start 11/20/16 at 12:30 Glucose (Glutose) 22.5 gm Q15M PRN PO DECREASED GLUCOSE; Start 11/20/16 at 12: 30 Dextrose (D50w Syringe) 25 ml Q15M PRN IV DECREASED GLUCOSE; Start 11/20/16 at 12:30 Dextrose (D50w Syringe) 50 ml Q15M PRN IV DECREASED GLUCOSE; Start 11/20/16 at 12:30 Glucagon (Glucagen) 1 mg Q15M PRN IM DECREASED GLUCOSE; Start 11/20/16 at 12:30 Glucose (Glutose) 15 gm Q15M PRN BUCCAL DECREASED GLUCOSE; Start 11/20/16 at 12 :30 Levothyroxine Sodium (Synthroid) 125 mcg DAILY@06 PO Last administered on 06:35; Admin Dose 125 MCG; Start 11/22/16 at 06:00 Guaifenesin (Robitussin Liquid Cup) 100 mg Q6H PRN PO COUGH Last administered on 11/25/16 21:58; Admin Dose 100 MG; Start 11/23/16 at 16:30 IV Flush (NS 10 ml) 10 ml PRN PRN IV IV PROTOCOL; Start 11/24/16 at 15:30 Insulin Glargine (Lantus) 15 unit HS SC Last administered on 12/06/16 21:57; Admin Dose 15 UNIT; Start 11/26/16 at 21:00 Midodrine 5 mg 5 mg BID@17 PRN PO sbp<80 Last administered on 12/04/16 09: 00; Admin Dose 5 MG; Start 11/28/16 at 17:00 Albumin Human (Albumin Human 25%) 100 ml @ 100 mls/hr ONCE PRN IV after paracentesis; Start 12/02/16 at 02:00 Morphine Sulfate (morphine) 2 mg Q3H PRN IV PAIN LEVEL 7-10 Last administered on 12/07/16 14:23; Admin Dose 2 MG; Start 12/04/16 at 10:00 MILADY ANDERSON MD Dec 07, 2016 18:56
[2016-12-07] MEDS: INSULIN GLARGINE [LANtus] 3 ML PEN SC SCH (21:24)
[2016-12-08] VITALS (23 sets, daily range): BP systolic 80–121; BP diastolic 38–75; PULSE 81–122; RESP 16–20
[2016-12-08] MEDS: morphine 2 MG INJ IV PRN ×5 (02:10→20:59)
[2016-12-08] MEDS: LEVOTHYROXINE 125 MCG TAB PO SCH (05:22)
[2016-12-08] MEDS: PANTOPRAZOLE (EC) 40 MG TAB PO SCH (05:22)
[2016-12-08] MEDS: INSULIN ASPART [NOVOLOG] 3 ML PEN SC SCH ×4 (07:55→21:00)
[2016-12-08] MEDS: ASPIRIN 81 MG TAB PO SCH (08:30)
[2016-12-08] MEDS ORDERED: ALBUMIN HUMAN 25% 100 ML IV ONE (09:00)
--- NOTE | 2016-12-08 12:48 | CONS ---
Date/Time of Note Date/Time of Note DATE: 12/08/16 TIME: 12:42 Assessment/Plan Assessment/Plan Additional Assessment/Plan Hypotension, intermittent AV fistula stenosis status post venoplasty Acute decompensated systolic and diastolic heart failure Cardiomyopathy, likely ischemic and nonischemic in origin with an ejection fraction less than 20%. (Denied cardiac transplant at [facility]) Biventricular pacemaker and ICD Mitral and tricuspid valve regurgitation. Severe pulmonary hypertension. End-stage renal disease on hemodialysis Ascites status post paracentesis Atrial fibrillation -Patient status post pacemaker/ICD interrogation yesterday with evidence of atrial fibrillation and under sensing. Adjustments have been made to assist with increased biventricular pacing. Patient with significant risk factors for thromboembolic events and will start him on anticoagulation. Consultation Date/Type/Reason Admit Date/Time Nov 20, 2016 at 09:34 Initial Consult Date 11/21/16 Type of Consultation: CV Referring Provider: DEMETRA BRUNO MD 24 HR Interval Summary Free Text/Dictation Patient denies shortness of breath, dizziness. Undergoing hemodialysis Exam/Review of Systems Vital Signs Vitals Vital Signs Date Time Temp Pulse Resp B/P Pulse Ox O2 Delivery O2 Flow Rate FiO2 12/08/16 12:07 113 12/08/16 11:45 14 12/08/16 07:15 97.4 112/54 93 12/06/16 13:20 Nasal Cannula 3.0 Intake and Output 12/07/16 12/07/16 12/08/16 15:00 23:00 07:00 Intake Total 240 ml 560 ml 450 ml Balance 240 ml 560 ml 450 ml Exam Undergoing hemodialysis Constitutional: alert, frail, oriented Head: normocephalic Neck: supple Respiratory: other (Coarse breath sounds bilaterally, no wheezing) Cardiovascular: other (S1-S2 heard), regular rate and rhythm Gastrointestinal: bowel sounds, distended, non-tender, soft Extremities: edema Results Result Diagram: 12/07/16 0635 12/07/16 0635 Results 24 hrs Laboratory Tests Test 12/07/16 17:35 12/07/16 21:10 12/08/16 08:08 12/08/16 11:51 Bedside Glucose 112 105 105 98 Medications Medications Current Medications Lorazepam (Ativan) 0.5 mg Q8H PRN PO ANXIETY Last administered on 12/03/16t 05: 37; Admin Dose 0.5 MG; Start 11/20/16 at 12:00 Ondansetron HCl (Zofran Inj) 4 mg Q6H PRN IV NAUSEA AND/OR VOMITING Last administered on 11/23/16 05:32; Admin Dose 4 MG; Start 11/20/16 at 12:00 Aspirin (Aspirin) 81 mg DAILY PO Last administered on 12/08/16 08:30; Admin Dose 81 MG; Start 11/21/16 at 09:00 Nitroglycerin (Nitroglycerin (Sl Tab) 0.4 Mg) 1 tab Q5M PRN SL CHEST PAIN; Start 11/20/16 at 12:00 Acetaminophen (Tylenol Tab) 650 mg Q6H PRN PO PAIN LEVEL 1-3 OR FEVER Last administered on 12/03/16 22:25; Admin Dose 650 MG; Start 11/20/16 at 12:00 Zolpidem Tartrate (Ambien) 5 mg QHS PRN PO INSOMNIA; Start 11/20/16 at 12:00 Pantoprazole (Protonix Tab) 40 mg DAILY@06 PO Last administered on 12/08/16 05 :22; Admin Dose 40 MG; Start 11/21/16 at 06:00 Miscellaneous Information 1 ea NOTE XX ; Start 11/20/16 at 12:30 Glucose (Glutose) 15 gm Q15M PRN PO DECREASED GLUCOSE; Start 11/20/16 at 12:30 Glucose (Glutose) 22.5 gm Q15M PRN PO DECREASED GLUCOSE; Start 11/20/16 at 12: 30 Dextrose (D50w Syringe) 25 ml Q15M PRN IV DECREASED GLUCOSE; Start 11/20/16 at 12:30 Dextrose (D50w Syringe) 50 ml Q15M PRN IV DECREASED GLUCOSE; Start 11/20/16 at 12:30 Glucagon (Glucagen) 1 mg Q15M PRN IM DECREASED GLUCOSE; Start 11/20/16 at 12:30 Glucose (Glutose) 15 gm Q15M PRN BUCCAL DECREASED GLUCOSE; Start 11/20/16 at 12 :30 Levothyroxine Sodium (Synthroid) 125 mcg DAILY@06 PO Last administered on 05:22; Admin Dose 125 MCG; Start 11/22/16 at 06:00 Guaifenesin (Robitussin Liquid Cup) 100 mg Q6H PRN PO COUGH Last administered on 11/25/16 21:58; Admin Dose 100 MG; Start 11/23/16 at 16:30 IV Flush (NS 10 ml) 10 ml PRN PRN IV IV PROTOCOL; Start 11/24/16 at 15:30 Insulin Glargine (Lantus) 15 unit HS SC Last administered on 12/07/16 21:24; Admin Dose 15 UNIT; Start 11/26/16 at 21:00 Midodrine 5 mg 5 mg BID@09,17 PRN PO sbp<80 Last administered on 12/04/16 09: 00; Admin Dose 5 MG; Start 11/28/16 at 17:00 Albumin Human (Albumin Human 25%) 100 ml @ 100 mls/hr ONCE PRN IV after paracentesis; Start 12/02/16 at 02:00 Morphine Sulfate (morphine) 2 mg Q3H PRN IV PAIN LEVEL 7-10 Last administered on 12/08/16 08:30; Admin Dose 2 MG; Start 12/04/16 at 10:00 Apixaban (Eliquis) 2.5 mg BID PO ; Start 12/08/16 at 21:00 Harpreet Cee DO Dec 08, 2016 12:48
--- NOTE | 2016-12-08 16:06 | CONS ---
Date/Time of Note Date/Time of Note DATE: 12/08/16 TIME: 16:05 Assessment/Plan Assessment/Plan Additional Assessment/Plan Assessment/Plan Additional Assessment/Plan ASSESSMENT: 1. Refractory ascites. 2. Ischemic cardiomyopathy. 3. End-stage renal disease. 4. Cirrhosis of liver. 5.s/p pleurex drain for ascites,3 liters removed today Plan drain ascitic fluid PRN Consultation Date/Type/Reason Admit Date/Time Nov 20, 2016 at 09:34 Initial Consult Date 11/21/16 Type of Consultation: CV Referring Provider: DEMETRA BRUNO MD 24 HR Interval Summary Constitutional: improved Exam/Review of Systems Vital Signs Vitals Vital Signs Date Time Temp Pulse Resp B/P Pulse Ox O2 Delivery O2 Flow Rate FiO2 12/08/16 16:04 105 12/08/16 12:41 98.0 18 90/45 93 12/06/16 13:20 Nasal Cannula 3.0 Intake and Output 12/07/16 12/07/16 12/08/16 15:00 23:00 07:00 Intake Total 240 ml 560 ml 450 ml Balance 240 ml 560 ml 450 ml Exam Constitutional: alert, oriented, well developed Psych: nl mood/affect, no complaints Head: atraumatic, normocephalic Eyes: EOMI, PERRL, nl conjunctiva, nl lids, nl sclera ENMT: nl external ears & nose, nl lips & teeth, nl nasal mucosa & septum Neck: non-tender, supple Respiratory: clear to auscultation, normal air movement Cardiovascular: nl pulses, regular rate and rhythm Gastrointestinal: nl liver, spleen, non-tender, soft Musculoskeletal: nl extremities to inspection, nl gait and stance Extremities: normal pulses 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: HAND IRONER 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, nl mental status, nl speech, nl strength Skin: nl turgor, No rash or lesions Lymph: nl lymph nodes Results Result Diagram: 12/07/16 0635 12/07/16 0635 Results 24 hrs Laboratory Tests Test 12/07/16 17:35 12/07/16 21:10 12/08/16 08:08 12/08/16 11:51 Bedside Glucose 112 105 105 98 Medications Medications Current Medications Lorazepam (Ativan) 0.5 mg Q8H PRN PO ANXIETY Last administered on 12/03/16t 05: 37; Admin Dose 0.5 MG; Start 11/20/16 at 12:00 Ondansetron HCl (Zofran Inj) 4 mg Q6H PRN IV NAUSEA AND/OR VOMITING Last administered on 11/23/16 05:32; Admin Dose 4 MG; Start 11/20/16 at 12:00 Aspirin (Aspirin) 81 mg DAILY PO Last administered on 12/08/16 08:30; Admin Dose 81 MG; Start 11/21/16 at 09:00 Nitroglycerin (Nitroglycerin (Sl Tab) 0.4 Mg) 1 tab Q5M PRN SL CHEST PAIN; Start 11/20/16 at 12:00 Acetaminophen (Tylenol Tab) 650 mg Q6H PRN PO PAIN LEVEL 1-3 OR FEVER Last administered on 12/03/16 22:25; Admin Dose 650 MG; Start 11/20/16 at 12:00 Zolpidem Tartrate (Ambien) 5 mg QHS PRN PO INSOMNIA; Start 11/20/16 at 12:00 Pantoprazole (Protonix Tab) 40 mg DAILY@06 PO Last administered on 12/08/16 05 :22; Admin Dose 40 MG; Start 11/21/16 at 06:00 Miscellaneous Information 1 ea NOTE XX ; Start 11/20/16 at 12:30 Glucose (Glutose) 15 gm Q15M PRN PO DECREASED GLUCOSE; Start 11/20/16 at 12:30 Glucose (Glutose) 22.5 gm Q15M PRN PO DECREASED GLUCOSE; Start 11/20/16 at 12: 30 Dextrose (D50w Syringe) 25 ml Q15M PRN IV DECREASED GLUCOSE; Start 11/20/16 at 12:30 Dextrose (D50w Syringe) 50 ml Q15M PRN IV DECREASED GLUCOSE; Start 11/20/16 at 12:30 Glucagon (Glucagen) 1 mg Q15M PRN IM DECREASED GLUCOSE; Start 11/20/16 at 12:30 Glucose (Glutose) 15 gm Q15M PRN BUCCAL DECREASED GLUCOSE; Start 11/20/16 at 12 :30 Levothyroxine Sodium (Synthroid) 125 mcg DAILY@06 PO Last administered on 05:22; Admin Dose 125 MCG; Start 11/22/16 at 06:00 Guaifenesin (Robitussin Liquid Cup) 100 mg Q6H PRN PO COUGH Last administered on 11/25/16 21:58; Admin Dose 100 MG; Start 11/23/16 at 16:30 IV Flush (NS 10 ml) 10 ml PRN PRN IV IV PROTOCOL; Start 11/24/16 at 15:30 Insulin Glargine (Lantus) 15 unit HS SC Last administered on 12/07/16 21:24; Admin Dose 15 UNIT; Start 11/26/16 at 21:00 Midodrine 5 mg 5 mg BID@09,17 PRN PO sbp<80 Last administered on 12/04/16 09: 00; Admin Dose 5 MG; Start 11/28/16 at 17:00 Albumin Human (Albumin Human 25%) 100 ml @ 100 mls/hr ONCE PRN IV after paracentesis; Start 12/02/16 at 02:00 Morphine Sulfate (morphine) 2 mg Q3H PRN IV PAIN LEVEL 7-10 Last administered on 12/08/16 15:24; Admin Dose 2 MG; Start 12/04/16 at 10:00 Apixaban (Eliquis) 2.5 mg BID PO ; Start 12/08/16 at 21:00 LOR MASON MD Dec 08, 2016 16:06
--- NOTE | 2016-12-08 16:41 | PN ---
Date/Time of Note Date/Time of Note DATE: 12/08/16 TIME: 16:35 Assessment/Plan VTE Prophylaxis VTE Prophylaxis Intervention: SCD's Lines/Catheters IV Catheter Type (from Nrs): PICC Line Central line still needed: Yes Urinary Cath still in place: No Assessment/Plan Chief Complaint/Hosp Course ASSESSMENT AND PLAN: - Status post mechanical fall yesterday most likely secondary to low blood pressure. Brain CT is negative, hip x-ray is negative for fracture. - Severe hypotension requiring pressors, resolved. - Congestive heart failure exacerbation with ejection fraction of 20% per last echo. Continue to remove fluids with hemodialysis. - Ascites, status post paracentesis on11/20, 12/02. S/p tunneled peritoneal drainage catheter placement 12/06. - End-stage renal disease, hemodialysis-dependent. Dr. Maddox is following from nephrology standpoint. Continue patient on hemodialysis. - Coronary artery disease status post coronary artery bypass graft. Continue patient on aspirin and Coreg. Dr. Cee is following from cardiology standpoint. - Hypothyroidism. TSH is 14, Synthroid increased to 125. - Diabetes mellitus type 2. Continue to monitor blood sugar with mild algorithm scale, NovoLog coverage. - Hemodialysis access, status post right AV fistulogram by Dr. Loco, vascular surgery on 11/21. - Liver cirrhosis and portal hypertension. Dr. Kirkpatrick is following in gastroenterology consultation. Continue Protonix for peptic ulcer disease prophylaxis. Further recommendations based on clinical course. Plan of care discussed with Dr. Vick. Problems: Subjective 24 Hr Interval Summary Free Text/Dictation Patient is status post hemodialysis, and drainage of the ascitic fluid via peritoneal catheter, labile blood pressure. Patient denies any chest pain denies shortness of breath denies dizziness, however will will place patient on bedrest, out of bed with nursing assistance only. continue to monitor Exam/Review of Systems Vital Signs Vitals Vital Signs Date Time Temp Pulse Resp B/P Pulse Ox O2 Delivery O2 Flow Rate FiO2 12/08/16 16:04 105 12/08/16 16:00 98.0 20 84/49 95 Room Air 12/06/16 13:20 3.0 Intake and Output 12/07/16 12/07/16 12/08/16 15:00 23:00 07:00 Intake Total 240 ml 560 ml 450 ml Balance 240 ml 560 ml 450 ml Exam GENERAL: well-developed, well-nourished male, currently is awake, alert. Left eyebrow abrasion and bruising. HEENT: Head is atraumatic, normocephalic. NECK: Supple. JVD is present, no cervical lymphadenopathy. CHEST: Lungs are clear bilaterally, slightly diminished at the bases. CARDIOVASCULAR: Regular rhythm and rate, normal S1, S2. No murmurs, gallops, clicks, rubs noted. The patient has a left chest permanent pacemaker with AICD. GASTROINTESTINAL: Abdomen is protuberant, soft, slightly distended, nontender. Bowel sounds present. No guarding, no rebound tenderness. Peritoneal catheter. SKIN: No rash, petechiae. EXTREMITIES: The patient has bilateral lower extremity edema, 3+. NEUROLOGIC: The patient is awake, alert and oriented x3. Results Result Diagram: 12/07/16 0635 12/07/16 0635 Results 24 hrs Laboratory Tests Test 12/07/16 17:35 12/07/16 21:10 12/08/16 08:08 12/08/16 11:51 Bedside Glucose 112 105 105 98 Medications Medications Current Medications Lorazepam (Ativan) 0.5 mg Q8H PRN PO ANXIETY Last administered on 12/03/16 05: 37; Admin Dose 0.5 MG; Start 11/20/16 at 12:00 Ondansetron HCl (Zofran Inj) 4 mg Q6H PRN IV NAUSEA AND/OR VOMITING Last administered on 11/23/16 05:32; Admin Dose 4 MG; Start 11/20/16 at 12:00 Aspirin (Aspirin) 81 mg DAILY PO Last administered on 12/08/16 08:30; Admin Dose 81 MG; Start 11/21/16 at 09:00 Nitroglycerin (Nitroglycerin (Sl Tab) 0.4 Mg) 1 tab Q5M PRN SL CHEST PAIN; Start 11/20/16 at 12:00 Acetaminophen (Tylenol Tab) 650 mg Q6H PRN PO PAIN LEVEL 1-3 OR FEVER Last administered on 12/03/16 22:25; Admin Dose 650 MG; Start 11/20/16 at 12:00 Zolpidem Tartrate (Ambien) 5 mg QHS PRN PO INSOMNIA; Start 11/20/16 at 12:00 Pantoprazole (Protonix Tab) 40 mg DAILY@06 PO Last administered on 12/08/16 05 :22; Admin Dose 40 MG; Start 11/21/16 at 06:00 Miscellaneous Information 1 ea NOTE XX ; Start 11/20/16 at 12:30 Glucose (Glutose) 15 gm Q15M PRN PO DECREASED GLUCOSE; Start 11/20/16 at 12:30 Glucose (Glutose) 22.5 gm Q15M PRN PO DECREASED GLUCOSE; Start 11/20/16 at 12: 30 Dextrose (D50w Syringe) 25 ml Q15M PRN IV DECREASED GLUCOSE; Start 11/20/16 at 12:30 Dextrose (D50w Syringe) 50 ml Q15M PRN IV DECREASED GLUCOSE; Start 11/20/16 at 12:30 Glucagon (Glucagen) 1 mg Q15M PRN IM DECREASED GLUCOSE; Start 11/20/16 at 12:30 Glucose (Glutose) 15 gm Q15M PRN BUCCAL DECREASED GLUCOSE; Start 11/20/16 at 12 :30 Levothyroxine Sodium (Synthroid) 125 mcg DAILY@06 PO Last administered on 05:22; Admin Dose 125 MCG; Start 11/22/16 at 06:00 Guaifenesin (Robitussin Liquid Cup) 100 mg Q6H PRN PO COUGH Last administered on 11/25/16 21:58; Admin Dose 100 MG; Start 11/23/16 at 16:30 IV Flush (NS 10 ml) 10 ml PRN PRN IV IV PROTOCOL; Start 11/24/16 at 15:30 Insulin Glargine (Lantus) 15 unit HS SC Last administered on 12/07/16 21:24; Admin Dose 15 UNIT; Start 11/26/16 at 21:00 Midodrine 5 mg 5 mg BID@,17 PRN PO sbp<80 Last administered on 12/04/16 09: 00; Admin Dose 5 MG; Start 11/28/16 at 17:00 Albumin Human (Albumin Human 25%) 100 ml @ 100 mls/hr ONCE PRN IV after paracentesis; Start 12/02/16 at 02:00 Morphine Sulfate (morphine) 2 mg Q3H PRN IV PAIN LEVEL 7-10 Last administered on 12/08/16 15:24; Admin Dose 2 MG; Start 12/04/16 at 10:00 Apixaban (Eliquis) 2.5 mg BID PO ; Start 12/08/16 at 21:00 DICKSON GROSSMAN Dec 08, 2016 16:41
[2016-12-08] MEDS: APIXABAN 5 MG TABLET PO SCH (20:10)
[2016-12-08] MEDS: INSULIN GLARGINE [LANtus] 3 ML PEN SC SCH (20:14)
--- NOTE | 2016-12-08 22:04 | CONS ---
Date/Time of Note Date/Time of Note DATE: 12/08/16 TIME: 22:02 Assessment/Plan Assessment/Plan Chief Complaint/Hosp Course Next HD in AM Problems: Additional Assessment/Plan Pt to continue HD 4Xwk Consultation Date/Type/Reason Admit Date/Time Nov 20, 2016 at 09:34 Initial Consult Date 11/21/16 Type of Consultation: renal Referring Provider: DEMETRA BRUNO MD 24 HR Interval Summary Constitutional: improved Exam/Review of Systems Vital Signs Vitals Vital Signs Date Time Temp Pulse Resp B/P Pulse Ox O2 Delivery O2 Flow Rate FiO2 12/08/16 21:05 122 12/08/16 19:39 98.2 20 84/50 96 Room Air 12/06/16 13:20 3.0 Intake and Output 12/07/16 12/07/16 12/08/16 15:00 23:00 07:00 Intake Total 240 ml 560 ml 450 ml Balance 240 ml 560 ml 450 ml Exam Constitutional: alert, oriented, well developed Psych: nl mood/affect, no complaints Head: atraumatic, normocephalic Eyes: EOMI, PERRL, nl conjunctiva, nl lids, nl sclera ENMT: nl external ears & nose, nl lips & teeth, nl nasal mucosa & septum Neck: non-tender, supple Respiratory: clear to auscultation, normal air movement Cardiovascular: nl pulses, regular rate and rhythm Gastrointestinal: nl liver, spleen, non-tender, other (Lt loin PD Drsinsge Csth in plsce), soft Musculoskeletal: nl extremities to inspection, nl gait and stance Extremities: normal pulses 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: TRANSCRIBER 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, nl mental status, nl speech, nl strength Skin: nl turgor, No rash or lesions Lymph: nl lymph nodes Results Result Diagram: 12/07/16 0635 12/07/16 0635 Results 24 hrs Laboratory Tests Test 12/08/16 08:08 12/08/16 11:51 12/08/16 17:19 12/08/16 19:56 Bedside Glucose 105 98 180 122 Medications Medications Current Medications Lorazepam (Ativan) 0.5 mg Q8H PRN PO ANXIETY Last administered on 12/03/16t 05: 37; Admin Dose 0.5 MG; Start 11/20/16 at 12:00 Ondansetron HCl (Zofran Inj) 4 mg Q6H PRN IV NAUSEA AND/OR VOMITING Last administered on 11/23/16 05:32; Admin Dose 4 MG; Start 11/20/16 at 12:00 Aspirin (Aspirin) 81 mg DAILY PO Last administered on 12/08/16 08:30; Admin Dose 81 MG; Start 11/21/16 at 09:00 Nitroglycerin (Nitroglycerin (Sl Tab) 0.4 Mg) 1 tab Q5M PRN SL CHEST PAIN; Start 11/20/16 at 12:00 Acetaminophen (Tylenol Tab) 650 mg Q6H PRN PO PAIN LEVEL 1-3 OR FEVER Last administered on 12/03/16 22:25; Admin Dose 650 MG; Start 11/20/16 at 12:00 Zolpidem Tartrate (Ambien) 5 mg QHS PRN PO INSOMNIA; Start 11/20/16 at 12:00 Pantoprazole (Protonix Tab) 40 mg DAILY@06 PO Last administered on 12/08/16 05 :22; Admin Dose 40 MG; Start 11/21/16 at 06:00 Miscellaneous Information 1 ea NOTE XX ; Start 11/20/16 at 12:30 Glucose (Glutose) 15 gm Q15M PRN PO DECREASED GLUCOSE; Start 11/20/16 at 12:30 Glucose (Glutose) 22.5 gm Q15M PRN PO DECREASED GLUCOSE; Start 11/20/16 at 12: 30 Dextrose (D50w Syringe) 25 ml Q15M PRN IV DECREASED GLUCOSE; Start 11/20/16 at 12:30 Dextrose (D50w Syringe) 50 ml Q15M PRN IV DECREASED GLUCOSE; Start 11/20/16 at 12:30 Glucagon (Glucagen) 1 mg Q15M PRN IM DECREASED GLUCOSE; Start 11/20/16 at 12:30 Glucose (Glutose) 15 gm Q15M PRN BUCCAL DECREASED GLUCOSE; Start 11/20/16 at 12 :30 Levothyroxine Sodium (Synthroid) 125 mcg DAILY@06 PO Last administered on 05:22; Admin Dose 125 MCG; Start 11/22/16 at 06:00 Guaifenesin (Robitussin Liquid Cup) 100 mg Q6H PRN PO COUGH Last administered on 11/25/16 21:58; Admin Dose 100 MG; Start 11/23/16 at 16:30 IV Flush (NS 10 ml) 10 ml PRN PRN IV IV PROTOCOL; Start 11/24/16 at 15:30 Insulin Glargine (Lantus) 15 unit HS SC Last administered on 12/08/16 20:14; Admin Dose 15 UNIT; Start 11/26/16 at 21:00 Midodrine 5 mg 5 mg BID@,17 PRN PO sbp<80 Last administered on 12/04/16 09: 00; Admin Dose 5 MG; Start 11/28/16 at 17:00 Albumin Human (Albumin Human 25%) 100 ml @ 100 mls/hr ONCE PRN IV after paracentesis; Start 12/02/16 at 02:00 Morphine Sulfate (morphine) 2 mg Q3H PRN IV PAIN LEVEL 7-10 Last administered on 12/08/16 20:59; Admin Dose 2 MG; Start 12/04/16 at 10:00 Apixaban (Eliquis) 2.5 mg BID PO Last administered on 12/08/16 20:10; Admin Dose 2.5 MG; Start 12/08/16 at 21:00 MILADY ANDERSON MD Dec 08, 2016 22:04
[2016-12-09] VITALS (14 sets, daily range): BP systolic 83–103; BP diastolic 45–61; PULSE 72–110; RESP 16–20
[2016-12-09] MEDS: morphine 2 MG INJ IV PRN ×6 (00:45→23:13)
[2016-12-09] MEDS: LEVOTHYROXINE 125 MCG TAB PO SCH (05:18)
[2016-12-09] MEDS: PANTOPRAZOLE (EC) 40 MG TAB PO SCH (05:18)
[2016-12-09 06:56] LABS: BASOPHIL # 0.1 10^3/ul (0.0-0.1); BASOPHILS % 0.7 % (0.0-2.0); EOSINOPHILS # 0.2 10^3/ul (0.0-0.5); EOSINOPHILS % 2.3 % (0.0-7.0); HEMATOCRIT 26.6 % (42.0-52.0); HEMOGLOBIN 8.9 g/dl (14.0-18.0); LYMPHOCYTES # 0.8 10^3/ul (0.8-2.9); LYMPHOCYTES % 8.7 % (15.0-51.0); MEAN CORPUSCULAR HEMOGLOBIN 29.8 pg (29.0-33.0); MEAN CORPUSCULAR HGB CONC 33.7 g/dl (32.0-37.0); MEAN CORPUSCULAR VOLUME 88.4 fl (82.0-101.0); MEAN PLATELET VOLUME 6.7 fl (7.4-10.4); MONOCYTES % 10.8 % (0.0-11.0); NEUTROPHIL # 6.8 10^3/ul (1.6-7.5); NEUTROPHILS % 77.5 % (39.0-77.0); PLATELET COUNT 214 10^3/UL (140-440); RED BLOOD COUNT 3.01 10^6/ul (4.70-6.10); RED CELL DISTRIBUTION WIDTH 19.3 % (11.5-14.5); UNCORRECTED WBC 8.8 10^3/ul (4.8-10.8); WHITE BLOOD COUNT 8.8 10^3/ul (4.8-10.8)
[2016-12-09 06:59] LABS: CONDITION 1; LH ANALYZER COMMENTS 1
[2016-12-09 07:16] LABS: POTASSIUM 4.6 mmol/L (3.5-5.1)
[2016-12-09 07:19] LABS: CREATININE 4.53 mg/dl (0.61-1.24)
[2016-12-09 07:20] LABS: CALCIUM 7.7 mg/dl (8.4-10.2)
[2016-12-09] MEDS: INSULIN ASPART [NOVOLOG] 3 ML PEN SC SCH ×4 (07:34→20:25)
[2016-12-09] MEDS: APIXABAN 5 MG TABLET PO SCH ×2 (08:40→20:21)
[2016-12-09] MEDS: ASPIRIN 81 MG TAB PO SCH (08:40)
--- NOTE | 2016-12-09 09:33 | PN ---
Date/Time of Note Date/Time of Note DATE: 12/09/16 TIME: 09:32 Assessment/Plan VTE Prophylaxis VTE Prophylaxis Intervention: other Lines/Catheters IV Catheter Type (from Nrs): PICC Line Central line still needed: Yes Urinary Cath still in place: No Assessment/Plan Chief Complaint/Hosp Course - Congestive heart failure exacerbation with ejection fraction of 20% per last echo. Continue to remove fluids with hemodialysis. - Ascites, status post paracentesis on11/20, 12/02. S/p tunneled peritoneal drainage catheter placement 12/06. - End-stage renal disease, hemodialysis-dependent. Dr. Maddox is following from nephrology standpoint. Continue patient on hemodialysis. - Coronary artery disease status post coronary artery bypass graft. Continue patient on aspirin and Coreg. Dr. Cee is following from cardiology standpoint. - Hypothyroidism. TSH is 14, Synthroid increased to 125. - Diabetes mellitus type 2. Continue to monitor blood sugar with mild algorithm scale, NovoLog coverage. - Hemodialysis access, status post right AV fistulogram by Dr. Loco, vascular surgery on 11/21. - Liver cirrhosis and portal hypertension. Dr. Kirkpatrick is following in gastroenterology consultation. Problems: Subjective 24 Hr Interval Summary Free Text/Dictation Patient complains of leaking from tube for paracentesis Exam/Review of Systems Vital Signs Vitals Vital Signs Date Time Temp Pulse Resp B/P Pulse Ox O2 Delivery O2 Flow Rate FiO2 12/09/16 09:17 110 12/09/16 07:45 97.6 20 103/61 93 Room Air 12/06/16 13:20 3.0 Intake and Output 12/08/16 12/08/16 12/09/16 15:00 23:00 07:00 Intake Total 500 ml 650 ml 400 ml Output Total 6000 ml Balance -5500 ml 650 ml 400 ml Exam Constitutional: well developed Head: atraumatic, normocephalic Neck: supple Respiratory: diminished breath sounds Cardiovascular: regular rate and rhythm Gastrointestinal: non-tender, soft Results Result Diagram: 12/09/16 0632 12/09/16 0632 Results 24 hrs Laboratory Tests Test 12/08/16 11:51 12/08/16 17:19 12/08/16 19:56 12/09/16 06:32 Bedside Glucose 98 180 122 Anion Gap 18 H Basophils # 0.1 Basophils % 0.7 Blood Morphology Comment Blood Urea Nitrogen 37 H Calcium Level 7.7 L Carbon Dioxide Level 24 Chloride Level 91 L Creatinine 4.53 H Eosinophils # 0.2 Eosinophils % 2.3 Glucose Level 162 Hematocrit 26.6 L Hemoglobin 8.9 L Lymphocytes # 0.8 Lymphocytes % 8.7 L Mean Corpuscular Hemoglobin 29.8 Mean Corpuscular Hemoglobin Concent 33.7 Mean Corpuscular Volume 88.4 Mean Platelet Volume 6.7 L Monocytes # 1.0 H Monocytes % 10.8 Neutrophils # 6.8 Neutrophils % 77.5 H Nucleated Red Blood Cells # 0.0 Nucleated Red Blood Cells % 0.0 Platelet Count 214 Potassium Level 4.6 Red Blood Count 3.01 L Red Cell Distribution Width 19.3 H Sodium Level 128 L White Blood Count 8.8 Test 12/09/16 07:28 Bedside Glucose 158 Medications Medications Current Medications Lorazepam (Ativan) 0.5 mg Q8H PRN PO ANXIETY Last administered on 12/03/16 05: 37; Admin Dose 0.5 MG; Start 11/20/16 at 12:00 Ondansetron HCl (Zofran Inj) 4 mg Q6H PRN IV NAUSEA AND/OR VOMITING Last administered on 11/23/16 05:32; Admin Dose 4 MG; Start 11/20/16 at 12:00 Aspirin (Aspirin) 81 mg DAILY PO Last administered on 12/09/16 08:40; Admin Dose 81 MG; Start 11/21/16 at 09:00 Nitroglycerin (Nitroglycerin (Sl Tab) 0.4 Mg) 1 tab Q5M PRN SL CHEST PAIN; Start 11/20/16 at 12:00 Acetaminophen (Tylenol Tab) 650 mg Q6H PRN PO PAIN LEVEL 1-3 OR FEVER Last administered on 12/03/16 22:25; Admin Dose 650 MG; Start 11/20/16 at 12:00 Zolpidem Tartrate (Ambien) 5 mg QHS PRN PO INSOMNIA; Start 11/20/16 at 12:00 Pantoprazole (Protonix Tab) 40 mg DAILY@06 PO Last administered on 12/09/16 05 :18; Admin Dose 40 MG; Start 11/21/16 at 06:00 Miscellaneous Information 1 ea NOTE XX ; Start 11/20/16 at 12:30 Glucose (Glutose) 15 gm Q15M PRN PO DECREASED GLUCOSE; Start 11/20/16 at 12:30 Glucose (Glutose) 22.5 gm Q15M PRN PO DECREASED GLUCOSE; Start 11/20/16 at 12: 30 Dextrose (D50w Syringe) 25 ml Q15M PRN IV DECREASED GLUCOSE; Start 11/20/16 at 12:30 Dextrose (D50w Syringe) 50 ml Q15M PRN IV DECREASED GLUCOSE; Start 11/20/16 at 12:30 Glucagon (Glucagen) 1 mg Q15M PRN IM DECREASED GLUCOSE; Start 11/20/16 at 12:30 Glucose (Glutose) 15 gm Q15M PRN BUCCAL DECREASED GLUCOSE; Start 11/20/16 at 12 :30 Levothyroxine Sodium (Synthroid) 125 mcg DAILY@06 PO Last administered on 05:18; Admin Dose 125 MCG; Start 11/22/16 at 06:00 Guaifenesin (Robitussin Liquid Cup) 100 mg Q6H PRN PO COUGH Last administered on 11/25/16 21:58; Admin Dose 100 MG; Start 11/23/16 at 16:30 IV Flush (NS 10 ml) 10 ml PRN PRN IV IV PROTOCOL; Start 11/24/16 at 15:30 Insulin Glargine (Lantus) 15 unit HS SC Last administered on 12/08/16 20:14; Admin Dose 15 UNIT; Start 11/26/16 at 21:00 Midodrine 5 mg 5 mg BID@17 PRN PO sbp<80 Last administered on 12/04/16 09: 00; Admin Dose 5 MG; Start 11/28/16 at 17:00 Albumin Human (Albumin Human 25%) 100 ml @ 100 mls/hr ONCE PRN IV after paracentesis; Start 12/02/16 at 02:00 Morphine Sulfate (morphine) 2 mg Q3H PRN IV PAIN LEVEL 7-10 Last administered on 12/09/16 06:31; Admin Dose 2 MG; Start 12/04/16 at 10:00 Apixaban (Eliquis) 2.5 mg BID PO Last administered on 12/09/16 08:40; Admin Dose 2.5 MG; Start 12/08/16 at 21:00 CH[place] SARAH Dec 09, 2016 09:33
[2016-12-09] MEDS: MIDODRINE 5 MG TAB PO PRN (15:11)
[2016-12-09] MEDS: INSULIN GLARGINE [LANtus] 3 ML PEN SC SCH (20:25)
--- NOTE | 2016-12-09 20:44 | CONS ---
Date/Time of Note Date/Time of Note DATE: 12/09/16 TIME: 20:43 Assessment/Plan Assessment/Plan Chief Complaint/Hosp Course Next HD in AM Problems: Consultation Date/Type/Reason Admit Date/Time Nov 20, 2016 at 09:34 Initial Consult Date 11/21/16 Type of Consultation: renal Referring Provider: DEMETRA BRUNO MD Exam/Review of Systems Vital Signs Vitals Vital Signs Date Time Temp Pulse Resp B/P Pulse Ox O2 Delivery O2 Flow Rate FiO2 12/09/16 20:29 104 12/09/16 19:51 97.5 16 93/60 98 12/09/16 15:30 Room Air 12/06/16 13:20 3.0 Intake and Output 12/08/16 12/08/16 12/09/16 15:00 23:00 07:00 Intake Total 500 ml 650 ml 400 ml Output Total 6000 ml Balance -5500 ml 650 ml 400 ml Results Result Diagram: 12/09/16 0632 12/09/16 0632 Results 24 hrs Laboratory Tests Test 12/09/16 06:32 12/09/16 07:28 12/09/16 11:34 12/09/16 17:08 Anion Gap 18 H Basophils # 0.1 Basophils % 0.7 Blood Morphology Comment Blood Urea Nitrogen 37 H Calcium Level 7.7 L Carbon Dioxide Level 24 Chloride Level 91 L Creatinine 4.53 H Eosinophils # 0.2 Eosinophils % 2.3 Glucose Level 162 Hematocrit 26.6 L Hemoglobin 8.9 L Lymphocytes # 0.8 Lymphocytes % 8.7 L Mean Corpuscular Hemoglobin 29.8 Mean Corpuscular Hemoglobin Concent 33.7 Mean Corpuscular Volume 88.4 Mean Platelet Volume 6.7 L Monocytes # 1.0 H Monocytes % 10.8 Neutrophils # 6.8 Neutrophils % 77.5 H Nucleated Red Blood Cells # 0.0 Nucleated Red Blood Cells % 0.0 Platelet Count 214 Potassium Level 4.6 Red Blood Count 3.01 L Red Cell Distribution Width 19.3 H Sodium Level 128 L White Blood Count 8.8 Bedside Glucose 158 208 148 Test 12/09/16 20:18 Bedside Glucose 221 H Medications Medications Current Medications Lorazepam (Ativan) 0.5 mg Q8H PRN PO ANXIETY Last administered on 12/03/16t 05: 37; Admin Dose 0.5 MG; Start 11/20/16 at 12:00 Ondansetron HCl (Zofran Inj) 4 mg Q6H PRN IV NAUSEA AND/OR VOMITING Last administered on 11/23/16 05:32; Admin Dose 4 MG; Start 11/20/16 at 12:00 Aspirin (Aspirin) 81 mg DAILY PO Last administered on 12/09/16 08:40; Admin Dose 81 MG; Start 11/21/16 at 09:00 Nitroglycerin (Nitroglycerin (Sl Tab) 0.4 Mg) 1 tab Q5M PRN SL CHEST PAIN; Start 11/20/16 at 12:00 Acetaminophen (Tylenol Tab) 650 mg Q6H PRN PO PAIN LEVEL 1-3 OR FEVER Last administered on 12/03/16 22:25; Admin Dose 650 MG; Start 11/20/16 at 12:00 Zolpidem Tartrate (Ambien) 5 mg QHS PRN PO INSOMNIA; Start 11/20/16 at 12:00 Pantoprazole (Protonix Tab) 40 mg DAILY@06 PO Last administered on 12/09/16 05 :18; Admin Dose 40 MG; Start 11/21/16 at 06:00 Miscellaneous Information 1 ea NOTE XX ; Start 11/20/16 at 12:30 Glucose (Glutose) 15 gm Q15M PRN PO DECREASED GLUCOSE; Start 11/20/16 at 12:30 Glucose (Glutose) 22.5 gm Q15M PRN PO DECREASED GLUCOSE; Start 11/20/16 at 12: 30 Dextrose (D50w Syringe) 25 ml Q15M PRN IV DECREASED GLUCOSE; Start 11/20/16 at 12:30 Dextrose (D50w Syringe) 50 ml Q15M PRN IV DECREASED GLUCOSE; Start 11/20/16 at 12:30 Glucagon (Glucagen) 1 mg Q15M PRN IM DECREASED GLUCOSE; Start 11/20/16 at 12:30 Glucose (Glutose) 15 gm Q15M PRN BUCCAL DECREASED GLUCOSE; Start 11/20/16 at 12 :30 Levothyroxine Sodium (Synthroid) 125 mcg DAILY@06 PO Last administered on 05:18; Admin Dose 125 MCG; Start 11/22/16 at 06:00 Guaifenesin (Robitussin Liquid Cup) 100 mg Q6H PRN PO COUGH Last administered on 11/25/16 21:58; Admin Dose 100 MG; Start 11/23/16 at 16:30 IV Flush (NS 10 ml) 10 ml PRN PRN IV IV PROTOCOL; Start 11/24/16 at 15:30 Insulin Glargine (Lantus) 15 unit HS SC Last administered on 12/09/16 20:25; Admin Dose 15 UNIT; Start 11/26/16 at 21:00 Midodrine 5 mg 5 mg BID@09,17 PRN PO sbp<80 Last administered on 12/09/16 15: 11; Admin Dose 5 MG; Start 11/28/16 at 17:00 Albumin Human (Albumin Human 25%) 100 ml @ 100 mls/hr ONCE PRN IV after paracentesis; Start 12/02/16 at 02:00 Morphine Sulfate (morphine) 2 mg Q3H PRN IV PAIN LEVEL 7-10 Last administered on 12/09/16 18:34; Admin Dose 2 MG; Start 12/04/16 at 10:00 Apixaban (Eliquis) 2.5 mg BID PO Last administered on 12/09/16 20:21; Admin Dose 2.5 MG; Start 12/08/16 at 21:00 MILADY ANDERSON MD Dec 09, 2016 20:44
[2016-12-10] VITALS (14 sets, daily range): BP systolic 78–109; BP diastolic 42–58; PULSE 65–111; RESP 16–20
[2016-12-10] MEDS: morphine 2 MG INJ IV PRN ×3 (02:51→09:29)
[2016-12-10] MEDS: ACETAMINOPHEN 325 MG TAB PO PRN ×3 (03:12→23:18)
[2016-12-10] MEDS: LEVOTHYROXINE 125 MCG TAB PO SCH (05:56)
[2016-12-10] MEDS: PANTOPRAZOLE (EC) 40 MG TAB PO SCH (05:56)
[2016-12-10] MEDS: INSULIN ASPART [NOVOLOG] 3 ML PEN SC SCH ×4 (07:40→20:24)
[2016-12-10] MEDS: APIXABAN 5 MG TABLET PO SCH ×2 (08:13→20:23)
[2016-12-10] MEDS: ASPIRIN 81 MG TAB PO SCH (08:14)
[2016-12-10] MEDS: MIDODRINE 5 MG TAB PO PRN ×2 (09:28→23:18)
--- NOTE | 2016-12-10 11:22 | PN ---
Date/Time of Note Date/Time of Note DATE: 12/10/16 TIME: 11:21 Assessment/Plan VTE Prophylaxis VTE Prophylaxis Intervention: other Lines/Catheters IV Catheter Type (from Nrs): PICC Line Central line still needed: Yes Urinary Cath still in place: No Assessment/Plan Chief Complaint/Hosp Course - Congestive heart failure exacerbation with ejection fraction of 20% per last echo. Continue to remove fluids with hemodialysis. - Ascites, status post paracentesis on11/20, 12/02. S/p tunneled peritoneal drainage catheter placement 12/06. - End-stage renal disease, hemodialysis-dependent. Dr. Maddox is following from nephrology standpoint. Continue patient on hemodialysis. - Coronary artery disease status post coronary artery bypass graft. Continue patient on aspirin and Coreg. Dr. Cee is following from cardiology standpoint. - Hypothyroidism. TSH is 14, Synthroid increased to 125. - Diabetes mellitus type 2. Continue to monitor blood sugar with mild algorithm scale, NovoLog coverage. - Hemodialysis access, status post right AV fistulogram by Dr. Loco, vascular surgery on 11/21. - Liver cirrhosis and portal hypertension. Dr. Kirkpatrick is following in gastroenterology consultation. Problems: Subjective 24 Hr Interval Summary Free Text/Dictation Patient complain of pain in abdomen and also in lower back where he fell Exam/Review of Systems Vital Signs Vitals Vital Signs Date Time Temp Pulse Resp B/P Pulse Ox O2 Delivery O2 Flow Rate FiO2 12/10/16 11:12 98.2 96 20 87/50 100 12/09/16 15:30 Room Air 12/06/16 13:20 3.0 Intake and Output 12/09/16 12/09/16 12/10/16 15:00 23:00 07:00 Intake Total 600 ml 240 ml Output Total 700 ml Balance 600 ml -460 ml Exam Constitutional: well developed Head: atraumatic, normocephalic Neck: supple Respiratory: diminished breath sounds Cardiovascular: regular rate and rhythm Gastrointestinal: non-tender, soft Results Result Diagram: 12/09/16 0632 12/09/16 0632 Results 24 hrs Laboratory Tests Test 12/09/16 11:34 12/09/16 17:08 12/09/16 20:18 12/10/16 02:48 Bedside Glucose 208 148 221 H 145 Test 12/10/16 07:37 Bedside Glucose 72 Medications Medications Current Medications Lorazepam (Ativan) 0.5 mg Q8H PRN PO ANXIETY Last administered on 12/03/16 05: 37; Admin Dose 0.5 MG; Start 11/20/16 at 12:00 Ondansetron HCl (Zofran Inj) 4 mg Q6H PRN IV NAUSEA AND/OR VOMITING Last administered on 11/23/16 05:32; Admin Dose 4 MG; Start 11/20/16 at 12:00 Aspirin (Aspirin) 81 mg DAILY PO Last administered on 12/10/16 08:14; Admin Dose 81 MG; Start 11/21/16 at 09:00 Nitroglycerin (Nitroglycerin (Sl Tab) 0.4 Mg) 1 tab Q5M PRN SL CHEST PAIN; Start 11/20/16 at 12:00 Acetaminophen (Tylenol Tab) 650 mg Q6H PRN PO PAIN LEVEL 1-3 OR FEVER Last administered on 12/10/16 03:12; Admin Dose 650 MG; Start 11/20/16 at 12:00 Zolpidem Tartrate (Ambien) 5 mg QHS PRN PO INSOMNIA; Start 11/20/16 at 12:00 Pantoprazole (Protonix Tab) 40 mg DAILY@06 PO Last administered on 12/10/16 05 :56; Admin Dose 40 MG; Start 11/21/16 at 06:00 Miscellaneous Information 1 ea NOTE XX ; Start 11/20/16 at 12:30 Glucose (Glutose) 15 gm Q15M PRN PO DECREASED GLUCOSE; Start 11/20/16 at 12:30 Glucose (Glutose) 22.5 gm Q15M PRN PO DECREASED GLUCOSE; Start 11/20/16 at 12: 30 Dextrose (D50w Syringe) 25 ml Q15M PRN IV DECREASED GLUCOSE; Start 11/20/16 at 12:30 Dextrose (D50w Syringe) 50 ml Q15M PRN IV DECREASED GLUCOSE; Start 11/20/16 at 12:30 Glucagon (Glucagen) 1 mg Q15M PRN IM DECREASED GLUCOSE; Start 11/20/16 at 12:30 Glucose (Glutose) 15 gm Q15M PRN BUCCAL DECREASED GLUCOSE; Start 11/20/16 at 12 :30 Levothyroxine Sodium (Synthroid) 125 mcg DAILY@06 PO Last administered on 05:56; Admin Dose 125 MCG; Start 11/22/16 at 06:00 Guaifenesin (Robitussin Liquid Cup) 100 mg Q6H PRN PO COUGH Last administered on 11/25/16 21:58; Admin Dose 100 MG; Start 11/23/16 at 16:30 IV Flush (NS 10 ml) 10 ml PRN PRN IV IV PROTOCOL; Start 11/24/16 at 15:30 Insulin Glargine (Lantus) 15 unit HS SC Last administered on 12/09/16 20:25; Admin Dose 15 UNIT; Start 11/26/16 at 21:00 Midodrine 5 mg 5 mg BID@,17 PRN PO sbp<80 Last administered on 12/10/16 09: 28; Admin Dose 5 MG; Start 11/28/16 at 17:00 Albumin Human (Albumin Human 25%) 100 ml @ 100 mls/hr ONCE PRN IV after paracentesis; Start 12/02/16 at 02:00 Morphine Sulfate (morphine) 2 mg Q3H PRN IV PAIN LEVEL 7-10 Last administered on 12/10/16 09:29; Admin Dose 2 MG; Start 12/04/16 at 10:00 Apixaban (Eliquis) 2.5 mg BID PO Last administered on 12/10/16 08:13; Admin Dose 2.5 MG; Start 12/08/16 at 21:00 CH[place] SARAH Dec 10, 2016 11:22
--- NOTE | 2016-12-10 17:59 | PN ---
DATE: 12/09/2016 CARDIOLOGY FOLLOWUP SUBJECTIVE: No new cardiac event. No chest pain or pressure. Rhythm strip was reviewed and discus sed with the staff. The patient remains in a paced rhythm. MEDICATIONS: Reviewed, which include 1. Eliquis 2.5 b.i.d. 2. ____ insulin. 3. Levothyroxine. 4. Aspirin. OBJECTIVE: VITAL SIGNS: Temperature 98, heart rate of 97, blood pressure of 95/59, respiratory rate 20, satura ting 95%. HEENT: Normocephalic, atraumatic. Pupils are equal. CARDIOVASCULAR: Regular rate and rhythm, systolic murmur. PULMONARY: Anteriorly with mild rhonchi at the base. GASTROINTESTINAL: Soft, nontender. EXTREMITIES: Positive edema. NEUROLOGIC: Awake, responds appropriately. PSYCHIATRIC: Appears to be calm and pleasant. LABORATORY: WBC of 8.8, hemoglobin 8.9, platelets 214. Sodium 128, potassium 4.6, BUN of 37, creat inine is 4.53, glucose 162. ASSESSMENT AND PLAN: 1. Congestive heart failure. 2. Renal failure. 3. Cardiomyopathy. 4. Sick sinus syndrome status post biventricular AICD. 5. History of valvular heart disease. 6. Pulmonary hypertension. 7. Ascites. RECOMMENDATIONS: We will continue with the current cardiac care for now. Anticoagulation as tolera rocco will be continued. Follow up with renal recommendations. Dictated By: YUSUF SWANSON MD AV/RAYNA Conf#: [id number] DID#: [id number] CC: DEMETRA BRUNO MD;*End*
[2016-12-10] MEDS ORDERED: DIGOXIN 500 MCG INJ IV ONE (18:00)
--- NOTE | 2016-12-10 20:03 | CONS ---
Date/Time of Note Date/Time of Note DATE: 12/10/16 TIME: 19:51 Assessment/Plan Assessment/Plan Chief Complaint/Hosp Course Next HD in AM Problems: Additional Assessment/Plan Renal cadena no change Pt had HD without problem today Await further GI plans Consultation Date/Type/Reason Admit Date/Time Nov 20, 2016 at 09:34 Initial Consult Date 11/21/16 Type of Consultation: renal Referring Provider: DEMETRA BRUNO MD 24 HR Interval Summary Constitutional: other (No Change) Exam/Review of Systems Vital Signs Vitals Vital Signs Date Time Temp Pulse Resp B/P Pulse Ox O2 Delivery O2 Flow Rate FiO2 12/10/16 16:57 111 12/10/16 15:33 98.7 20 92/46 90 12/09/16 15:30 Room Air 12/06/16 13:20 3.0 Intake and Output 12/09/16 12/09/16 12/10/16 15:00 23:00 07:00 Intake Total 600 ml 240 ml Output Total 700 ml Balance 600 ml -460 ml Exam Constitutional: alert, oriented, well developed Psych: nl mood/affect, no complaints Head: atraumatic, normocephalic Eyes: EOMI, PERRL, nl conjunctiva, nl lids, nl sclera ENMT: nl external ears & nose, nl lips & teeth, nl nasal mucosa & septum Neck: non-tender, supple Respiratory: clear to auscultation, normal air movement Cardiovascular: nl pulses, regular rate and rhythm Gastrointestinal: ascites, nl liver, spleen, non-tender, soft Musculoskeletal: nl extremities to inspection, nl gait and stance Extremities: normal pulses 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: 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, nl mental status, nl speech, nl strength Skin: nl turgor, No rash or lesions Lymph: nl lymph nodes Results Result Diagram: 12/09/16 0632 12/09/16 0632 Results 24 hrs Laboratory Tests Test 12/09/16 20:18 12/10/16 02:48 12/10/16 07:37 12/10/16 11:20 Bedside Glucose 221 H 145 72 88 Test 12/10/16 17:38 Bedside Glucose 78 Medications Medications Current Medications Lorazepam (Ativan) 0.5 mg Q8H PRN PO ANXIETY Last administered on 12/03/16t 05: 37; Admin Dose 0.5 MG; Start 11/20/16 at 12:00 Ondansetron HCl (Zofran Inj) 4 mg Q6H PRN IV NAUSEA AND/OR VOMITING Last administered on 11/23/16 05:32; Admin Dose 4 MG; Start 11/20/16 at 12:00 Aspirin (Aspirin) 81 mg DAILY PO Last administered on 12/10/16 08:14; Admin Dose 81 MG; Start 11/21/16 at 09:00 Nitroglycerin (Nitroglycerin (Sl Tab) 0.4 Mg) 1 tab Q5M PRN SL CHEST PAIN; Start 11/20/16 at 12:00 Zolpidem Tartrate (Ambien) 5 mg QHS PRN PO INSOMNIA; Start 11/20/16 at 12:00 Pantoprazole (Protonix Tab) 40 mg DAILY@06 PO Last administered on 12/10/16 05 :56; Admin Dose 40 MG; Start 11/21/16 at 06:00 Miscellaneous Information 1 ea NOTE XX ; Start 11/20/16 at 12:30 Glucose (Glutose) 15 gm Q15M PRN PO DECREASED GLUCOSE; Start 11/20/16 at 12:30 Glucose (Glutose) 22.5 gm Q15M PRN PO DECREASED GLUCOSE; Start 11/20/16 at 12: 30 Dextrose (D50w Syringe) 25 ml Q15M PRN IV DECREASED GLUCOSE; Start 11/20/16 at 12:30 Dextrose (D50w Syringe) 50 ml Q15M PRN IV DECREASED GLUCOSE; Start 11/20/16 at 12:30 Glucagon (Glucagen) 1 mg Q15M PRN IM DECREASED GLUCOSE; Start 11/20/16 at 12:30 Glucose (Glutose) 15 gm Q15M PRN BUCCAL DECREASED GLUCOSE; Start 11/20/16 at 12 :30 Levothyroxine Sodium (Synthroid) 125 mcg DAILY@06 PO Last administered on 05:56; Admin Dose 125 MCG; Start 11/22/16 at 06:00 Guaifenesin (Robitussin Liquid Cup) 100 mg Q6H PRN PO COUGH Last administered on 11/25/16 21:58; Admin Dose 100 MG; Start 11/23/16 at 16:30 IV Flush (NS 10 ml) 10 ml PRN PRN IV IV PROTOCOL; Start 11/24/16 at 15:30 Insulin Glargine (Lantus) 15 unit HS SC Last administered on 12/09/16 20:25; Admin Dose 15 UNIT; Start 11/26/16 at 21:00 Midodrine 5 mg 5 mg BID@09,17 PRN PO sbp<80 Last administered on 12/10/16 09: 28; Admin Dose 5 MG; Start 11/28/16 at 17:00 Albumin Human (Albumin Human 25%) 100 ml @ 100 mls/hr ONCE PRN IV after paracentesis; Start 12/02/16 at 02:00 Morphine Sulfate (morphine) 2 mg Q3H PRN IV PAIN LEVEL 7-10 Last administered on 12/10/16 09:29; Admin Dose 2 MG; Start 12/04/16 at 10:00 Apixaban (Eliquis) 2.5 mg BID PO Last administered on 12/10/16 08:13; Admin Dose 2.5 MG; Start 12/08/16 at 21:00 Acetaminophen (Tylenol Tab) 650 mg Q4H PRN PO PAIN LEVEL 1-3 OR FEVER; Start at 13:00 MILADY ANDERSON MD Dec 10, 2016 20:03
[2016-12-10] MEDS: INSULIN GLARGINE [LANtus] 3 ML PEN SC SCH (22:00)
[2016-12-11] VITALS (15 sets, daily range): BP systolic 82–104; BP diastolic 47–54; PULSE 98–113; RESP 17–19
[2016-12-11] MEDS: morphine 2 MG INJ IV PRN ×5 (01:53→19:42)
[2016-12-11] MEDS: ACETAMINOPHEN 325 MG TAB PO PRN (01:53)
[2016-12-11] MEDS: PANTOPRAZOLE (EC) 40 MG TAB PO SCH (06:32)
[2016-12-11] MEDS: LEVOTHYROXINE 125 MCG TAB PO SCH (06:33)
--- NOTE | 2016-12-11 06:44 | PN ---
DATE: 12/10/2016 CARDIOLOGY FOLLOWUP SUBJECTIVE: Discussed with the staff. Rhythm strip reviewed. The patient remains in paced rhythm. Heart rate has increased though. The patient appears to be more drowsy and this morning denies an y chest pain or pressure to me. MEDICATIONS: Reviewed. PHYSICAL EXAMINATION: VITAL SIGNS: Temperature 98.7, heart rate of 111, blood pressure 92/46, respiratory rate of 20. HEENT: Normocephalic, atraumatic. CARDIOVASCULAR: Tachycardic. PULMONARY: With no wheezes, minimal rhonchi. GASTROINTESTINAL: Soft. EXTREMITIES: Positive edema. NEUROLOGIC: Lethargic and drowsy. LABORATORY: Sugar is 78. ASSESSMENT AND PLAN: 1. Congestive heart failure. 2. Cardiomyopathy. 3. Status post biventricular pacemaker. 4. History of sick sinus syndrome. 5. Atrial fibrillation and flutter. 6. Pulmonary hypertension. 7. Renal failure on dialysis. 8. History of ascites. RECOMMENDATIONS: The patient continues to have ventricular paced rhythm. RECOMMENDATIONS: Anticoagulation will be continued as long as no bleeding. I will give one dose of digoxin only now given his renal failure. We will continue with the rest of her cardiac care. Dictated By: YUSUF SWANSON MD AV/NTS Conf#: [id number] DID#: [id number] CC: [place] SARAH MD;*EndCC*
[2016-12-11] MEDS: INSULIN ASPART [NOVOLOG] 3 ML PEN SC SCH ×4 (07:55→21:00)
[2016-12-11] MEDS: APIXABAN 5 MG TABLET PO SCH ×2 (08:22→21:28)
[2016-12-11] MEDS: ASPIRIN 81 MG TAB PO SCH (08:22)
[2016-12-11] MEDS: MIDODRINE 5 MG TAB PO PRN (11:31)
--- NOTE | 2016-12-11 16:07 | CONS ---
Date/Time of Note Date/Time of Note DATE: 12/11/16 TIME: 16:05 Assessment/Plan Assessment/Plan Additional Assessment/Plan Hypotension, intermittent AV fistula stenosis status post venoplasty Acute decompensated systolic and diastolic heart failure Cardiomyopathy, likely ischemic and nonischemic in origin with an ejection fraction less than 20%. (Denied cardiac transplant at [facility]) Biventricular pacemaker and ICD Mitral and tricuspid valve regurgitation. Severe pulmonary hypertension. End-stage renal disease on hemodialysis Ascites status post paracentesis Atrial fibrillation -Patient currently draining peritoneal. Continue anticoagulation if no contraindication. DC aspirin given on anticoagulation. Given low blood pressure, patient cannot tolerate beta-jyoti or ANDRA inhibitor at the current time. Consultation Date/Type/Reason Admit Date/Time Nov 20, 2016 at 09:34 Initial Consult Date 11/21/16 Type of Consultation: cv Referring Provider: DEMETRA BRUNO MD 24 HR Interval Summary Free Text/Dictation Denies shortness of breath, currently draining from peritoneal catheter Exam/Review of Systems Vital Signs Vitals Vital Signs Date Time Temp Pulse Resp B/P Pulse Ox O2 Delivery O2 Flow Rate FiO2 12/11/16 15:26 99.4 104 19 98/53 98 12/09/16 15:30 Room Air Intake and Output 12/10/16 12/10/16 12/11/16 15:00 23:00 07:00 Intake Total 480 ml 600 ml Output Total 1000 ml 750 ml Balance -1000 ml -270 ml 600 ml Exam No apparent distress Constitutional: alert, frail, oriented Head: normocephalic Neck: supple Respiratory: other (Coarse breath sounds bilaterally, no wheezing) Cardiovascular: other (S1-S2), regular rate and rhythm Gastrointestinal: ascites, bowel sounds, distended, non-tender, soft Extremities: edema Results Result Diagram: 12/09/16 0632 12/09/16 0632 Results 24 hrs Laboratory Tests Test 12/10/16 17:38 12/10/16 20:04 12/11/16 08:06 12/11/16 11:14 Bedside Glucose 78 82 73 87 Medications Medications Current Medications Lorazepam (Ativan) 0.5 mg Q8H PRN PO ANXIETY Last administered on 12/03/16t 05: 37; Admin Dose 0.5 MG; Start 11/20/16 at 12:00 Ondansetron HCl (Zofran Inj) 4 mg Q6H PRN IV NAUSEA AND/OR VOMITING Last administered on 11/23/16 05:32; Admin Dose 4 MG; Start 11/20/16 at 12:00 Aspirin (Aspirin) 81 mg DAILY PO Last administered on 12/11/16 08:22; Admin Dose 81 MG; Start 11/21/16 at 09:00 Nitroglycerin (Nitroglycerin (Sl Tab) 0.4 Mg) 1 tab Q5M PRN SL CHEST PAIN; Start 11/20/16 at 12:00 Zolpidem Tartrate (Ambien) 5 mg QHS PRN PO INSOMNIA; Start 11/20/16 at 12:00 Pantoprazole (Protonix Tab) 40 mg DAILY@06 PO Last administered on 12/11/16 06 :32; Admin Dose 40 MG; Start 11/21/16 at 06:00 Miscellaneous Information 1 ea NOTE XX ; Start 11/20/16 at 12:30 Glucose (Glutose) 15 gm Q15M PRN PO DECREASED GLUCOSE; Start 11/20/16 at 12:30 Glucose (Glutose) 22.5 gm Q15M PRN PO DECREASED GLUCOSE; Start 11/20/16 at 12: 30 Dextrose (D50w Syringe) 25 ml Q15M PRN IV DECREASED GLUCOSE; Start 11/20/16 at 12:30 Dextrose (D50w Syringe) 50 ml Q15M PRN IV DECREASED GLUCOSE; Start 11/20/16 at 12:30 Glucagon (Glucagen) 1 mg Q15M PRN IM DECREASED GLUCOSE; Start 11/20/16 at 12:30 Glucose (Glutose) 15 gm Q15M PRN BUCCAL DECREASED GLUCOSE; Start 11/20/16 at 12 :30 Levothyroxine Sodium (Synthroid) 125 mcg DAILY@06 PO Last administered on 06:33; Admin Dose 125 MCG; Start 11/22/16 at 06:00 Guaifenesin (Robitussin Liquid Cup) 100 mg Q6H PRN PO COUGH Last administered on 11/25/16 21:58; Admin Dose 100 MG; Start 11/23/16 at 16:30 IV Flush (NS 10 ml) 10 ml PRN PRN IV IV PROTOCOL; Start 11/24/16 at 15:30 Insulin Glargine (Lantus) 15 unit HS SC Last administered on 12/10/16 22:00; Admin Dose 15 UNIT; Start 11/26/16 at 21:00 Midodrine 5 mg 5 mg BID@09,17 PRN PO sbp<80 Last administered on 12/11/16 11: 31; Admin Dose 5 MG; Start 11/28/16 at 17:00 Albumin Human (Albumin Human 25%) 100 ml @ 100 mls/hr ONCE PRN IV after paracentesis; Start 12/02/16 at 02:00 Morphine Sulfate (morphine) 2 mg Q3H PRN IV PAIN LEVEL 7-10 Last administered on 12/11/16 15:25; Admin Dose 2 MG; Start 12/04/16 at 10:00 Apixaban (Eliquis) 2.5 mg BID PO Last administered on 12/11/16 08:22; Admin Dose 2.5 MG; Start 12/08/16 at 21:00 Acetaminophen (Tylenol Tab) 650 mg Q4H PRN PO PAIN LEVEL 1-3 OR FEVER Last administered on 12/11/16 01:53; Admin Dose 650 MG; Start 12/10/16 at 13:00 Harpreet Cee DO Dec 11, 2016 16:06
--- NOTE | 2016-12-11 17:21 | PN ---
Date/Time of Note Date/Time of Note DATE: 12/11/16 TIME: 17:17 Assessment/Plan VTE Prophylaxis VTE Prophylaxis Intervention: other Lines/Catheters [facility] PICC Line Central line still needed: Yes Urinary Cath still in place: No Assessment/Plan Chief Complaint/Hosp Course ASSESSMENT AND PLAN: -Fever, rule out spontaneous bacterial peritonitis, blood cultures stat, peritoneal catheter fluid culture, start Rocephin. - Status post mechanical fall yesterday most likely secondary to low blood pressure. Brain CT is negative, hip x-ray is negative for fracture. - Severe hypotension requiring pressors, resolved. - Congestive heart failure exacerbation with ejection fraction of 20% per last echo. Continue to remove fluids with hemodialysis. - Ascites, status post paracentesis on11/20, 12/02. S/p tunneled peritoneal drainage catheter placement 12/06. - End-stage renal disease, hemodialysis-dependent. Dr. Maddox is following from nephrology standpoint. Continue patient on hemodialysis. - Coronary artery disease status post coronary artery bypass graft. Continue patient on aspirin and Coreg. Dr. Cee is following from cardiology standpoint. - Hypothyroidism. TSH is 14, Synthroid increased to 125. - Diabetes mellitus type 2. Continue to monitor blood sugar with mild algorithm scale, NovoLog coverage. - Hemodialysis access, status post right AV fistulogram by Dr. Loco, vascular surgery on 11/21. - Liver cirrhosis and portal hypertension. Dr. Kirkpatrick is following in gastroenterology consultation. Continue Protonix for peptic ulcer disease prophylaxis. Further recommendations based on clinical course. Plan of care discussed with Dr. Vick. Problems: Subjective 24 Hr Interval Summary Free Text/Dictation Patient spiked fever last night, complaints of abdominal pain not relieved with 2 mg of morphine, are serosanguineous drainage from peritoneal catheter. Exam/Review of Systems Vital Signs Vitals Vital Signs Date Time Temp Pulse Resp B/P Pulse Ox O2 Delivery O2 Flow Rate FiO2 12/11/16 15:26 99.4 104 19 98/53 98 12/09/16 15:30 Room Air Intake and Output 12/10/16 12/10/16 12/11/16 15:00 23:00 07:00 Intake Total 480 ml 600 ml Output Total 1000 ml 750 ml Balance -1000 ml -270 ml 600 ml Exam GENERAL: well-developed, well-nourished male, currently is awake, alert. Left eyebrow abrasion and bruising. HEENT: Head is atraumatic, normocephalic. NECK: Supple. JVD is present, no cervical lymphadenopathy. CHEST: Lungs are clear bilaterally, slightly diminished at the bases. CARDIOVASCULAR: Regular rhythm and rate, normal S1, S2. No murmurs, gallops, clicks, rubs noted. The patient has a left chest permanent pacemaker with AICD. GASTROINTESTINAL: Abdomen is protuberant, soft, slightly distended, nontender. Bowel sounds present. No guarding, no rebound tenderness. Peritoneal catheter. SKIN: No rash, petechiae. EXTREMITIES: The patient has bilateral lower extremity edema, 3+. NEUROLOGIC: The patient is awake, alert and oriented x3. Results Result Diagram: 12/09/16 0632 12/09/16 0632 Results 24 hrs Laboratory Tests Test 12/10/16 17:38 12/10/16 20:04 12/11/16 08:06 12/11/16 11:14 Bedside Glucose 78 82 73 87 Medications Medications Current Medications Lorazepam (Ativan) 0.5 mg Q8H PRN PO ANXIETY Last administered on 12/03/16 05: 37; Admin Dose 0.5 MG; Start 11/20/16 at 12:00 Ondansetron HCl (Zofran Inj) 4 mg Q6H PRN IV NAUSEA AND/OR VOMITING Last administered on 11/23/16 05:32; Admin Dose 4 MG; Start 11/20/16 at 12:00 Nitroglycerin (Nitroglycerin (Sl Tab) 0.4 Mg) 1 tab Q5M PRN SL CHEST PAIN; Start 11/20/16 at 12:00 Zolpidem Tartrate (Ambien) 5 mg QHS PRN PO INSOMNIA; Start 11/20/16 at 12:00 Pantoprazole (Protonix Tab) 40 mg DAILY@06 PO Last administered on 12/11/16 06 :32; Admin Dose 40 MG; Start 11/21/16 at 06:00 Miscellaneous Information 1 ea NOTE XX ; Start 11/20/16 at 12:30 Glucose (Glutose) 15 gm Q15M PRN PO DECREASED GLUCOSE; Start 11/20/16 at 12:30 Glucose (Glutose) 22.5 gm Q15M PRN PO DECREASED GLUCOSE; Start 11/20/16 at 12: 30 Dextrose (D50w Syringe) 25 ml Q15M PRN IV DECREASED GLUCOSE; Start 11/20/16 at 12:30 Dextrose (D50w Syringe) 50 ml Q15M PRN IV DECREASED GLUCOSE; Start 11/20/16 at 12:30 Glucagon (Glucagen) 1 mg Q15M PRN IM DECREASED GLUCOSE; Start 11/20/16 at 12:30 Glucose (Glutose) 15 gm Q15M PRN BUCCAL DECREASED GLUCOSE; Start 11/20/16 at 12 :30 Levothyroxine Sodium (Synthroid) 125 mcg DAILY@06 PO Last administered on 06:33; Admin Dose 125 MCG; Start 11/22/16 at 06:00 Guaifenesin (Robitussin Liquid Cup) 100 mg Q6H PRN PO COUGH Last administered on 11/25/16 21:58; Admin Dose 100 MG; Start 11/23/16 at 16:30 IV Flush (NS 10 ml) 10 ml PRN PRN IV IV PROTOCOL; Start 11/24/16 at 15:30 Insulin Glargine (Lantus) 15 unit HS SC Last administered on 12/10/16 22:00; Admin Dose 15 UNIT; Start 11/26/16 at 21:00 Midodrine 5 mg 5 mg BID@09,17 PRN PO sbp<80 Last administered on 12/11/16 11: 31; Admin Dose 5 MG; Start 11/28/16 at 17:00 Albumin Human (Albumin Human 25%) 100 ml @ 100 mls/hr ONCE PRN IV after paracentesis; Start 12/02/16 at 02:00 Morphine Sulfate (morphine) 2 mg Q3H PRN IV PAIN LEVEL 7-10 Last administered on 12/11/16 15:25; Admin Dose 2 MG; Start 12/04/16 at 10:00 Apixaban (Eliquis) 2.5 mg BID PO Last administered on 12/11/16 08:22; Admin Dose 2.5 MG; Start 12/08/16 at 21:00 Acetaminophen (Tylenol Tab) 650 mg Q4H PRN PO PAIN LEVEL 1-3 OR FEVER Last administered on 12/11/16 01:53; Admin Dose 650 MG; Start 12/10/16 at 13:00 DICKSON GROSSMAN Dec 11, 2016 17:20
[2016-12-11] MEDS: CEFTRIAXONE 1 GM/50 ML (PMX) 50 ML IVPB SCH (17:53)
[2016-12-11] MEDS: INSULIN GLARGINE [LANtus] 3 ML PEN SC SCH (21:30)
[2016-12-12] VITALS (13 sets, daily range): BP systolic 73–106; BP diastolic 43–64; PULSE 82–110; RESP 17–19
[2016-12-12] MEDS: morphine 2 MG INJ IV PRN ×4 (00:56→22:17)
[2016-12-12] MEDS: LORAZEPAM 0.5 MG TAB PO PRN (03:26)
[2016-12-12] MEDS: LEVOTHYROXINE 125 MCG TAB PO SCH (05:51)
[2016-12-12] MEDS: PANTOPRAZOLE (EC) 40 MG TAB PO SCH (05:51)
[2016-12-12] MEDS: INSULIN ASPART [NOVOLOG] 3 ML PEN SC SCH ×4 (07:55→21:00)
[2016-12-12 08:15] LABS: POTASSIUM 4.7 mmol/L (3.5-5.1)
[2016-12-12 08:17] LABS: CREATININE 5.85 mg/dl (0.61-1.24)
[2016-12-12 08:18] LABS: CALCIUM 7.3 mg/dl (8.4-10.2)
[2016-12-12] MEDS: APIXABAN 5 MG TABLET PO SCH ×2 (08:51→21:30)
[2016-12-12 09:01] LABS: BASOPHILS % 0.5 % (0.0-2.0); EOSINOPHILS # 0.1 10^3/ul (0.0-0.5); EOSINOPHILS % 0.8 % (0.0-7.0); HEMATOCRIT 27.1 % (42.0-52.0); HEMOGLOBIN 9.1 g/dl (14.0-18.0); LYMPHOCYTES # 1.1 10^3/ul (0.8-2.9); LYMPHOCYTES % 17.4 % (15.0-51.0); MEAN CORPUSCULAR HEMOGLOBIN 29.6 pg (29.0-33.0); MEAN CORPUSCULAR HGB CONC 33.5 g/dl (32.0-37.0); MEAN CORPUSCULAR VOLUME 88.5 fl (82.0-101.0); MEAN PLATELET VOLUME 6.5 fl (7.4-10.4); MONOCYTE # 0.7 10^3/ul (0.3-0.9); MONOCYTES % 10.6 % (0.0-11.0); NEUTROPHIL # 4.5 10^3/ul (1.6-7.5); NEUTROPHILS % 70.7 % (39.0-77.0); PLATELET COUNT 155 10^3/UL (140-440); RED BLOOD COUNT 3.06 10^6/ul (4.70-6.10); RED CELL DISTRIBUTION WIDTH 20.2 % (11.5-14.5); UNCORRECTED WBC 6.3 10^3/ul (4.8-10.8); WHITE BLOOD COUNT 6.3 10^3/ul (4.8-10.8)
[2016-12-12 09:11] LABS: CONDITION 1; LH ANALYZER COMMENTS 1
[2016-12-12] MEDS: MIDODRINE 5 MG TAB PO PRN (15:53)
--- NOTE | 2016-12-12 16:50 | PN ---
Date/Time of Note Date/Time of Note DATE: 12/12/16 TIME: 16:48 Assessment/Plan VTE Prophylaxis VTE Prophylaxis Intervention: SCD's Lines/Catheters IV Catheter Type (from Nrs): PICC Line Central line still needed: Yes Urinary Cath still in place: No Assessment/Plan Chief Complaint/Hosp Course ASSESSMENT AND PLAN: -Fever yesterday, rule out spontaneous bacterial peritonitis, f/up on blood cultures stat, peritoneal catheter fluid culture, continue Rocephin. - Status post mechanical fall yesterday most likely secondary to low blood pressure. Brain CT is negative, hip x-ray is negative for fracture. - Severe hypotension requiring pressors, resolved. - Congestive heart failure exacerbation with ejection fraction of 20% per last echo. Continue to remove fluids with hemodialysis. - Ascites, status post paracentesis on11/20, 12/02. S/p tunneled peritoneal drainage catheter placement 12/06. - End-stage renal disease, hemodialysis-dependent. Dr. Maddox is following from nephrology standpoint. Continue patient on hemodialysis. - Coronary artery disease status post coronary artery bypass graft. Continue patient on aspirin and Coreg. Dr. Cee is following from cardiology standpoint. - Hypothyroidism. TSH is 14, Synthroid increased to 125. - Diabetes mellitus type 2. Continue to monitor blood sugar with mild algorithm scale, NovoLog coverage. - Hemodialysis access, status post right AV fistulogram by Dr. Loco, vascular surgery on 11/21. - Liver cirrhosis and portal hypertension. Dr. Kirkpatrick is following in gastroenterology consultation. Continue Protonix for peptic ulcer disease prophylaxis. Further recommendations based on clinical course. Plan of care discussed with Dr. Vick. Problems: Subjective 24 Hr Interval Summary Free Text/Dictation Patient complains of generalized weakness, HD is held due to low BP, will administer albumin, afebrile. Exam/Review of Systems Vital Signs Vitals Vital Signs Date Time Temp Pulse Resp B/P Pulse Ox O2 Delivery O2 Flow Rate FiO2 12/12/16 16:20 91 12/12/16 15:17 97.9 18 103/44 95 12/09/16 15:30 Room Air Intake and Output 12/11/16 12/11/16 12/12/16 15:00 23:00 07:00 Intake Total 550 ml Output Total 3000 ml 300 ml Balance -3000 ml 250 ml Exam GENERAL: well-developed, well-nourished male, currently is awake, alert. Left eyebrow abrasion and bruising. HEENT: Head is atraumatic, normocephalic. NECK: Supple. JVD is present, no cervical lymphadenopathy. CHEST: Lungs are clear bilaterally, slightly diminished at the bases. CARDIOVASCULAR: Regular rhythm and rate, normal S1, S2. No murmurs, gallops, clicks, rubs noted. The patient has a left chest permanent pacemaker with AICD. GASTROINTESTINAL: Abdomen is protuberant, soft, slightly distended, nontender. Bowel sounds present. No guarding, no rebound tenderness. Peritoneal catheter. SKIN: No rash, petechiae. EXTREMITIES: The patient has bilateral lower extremity edema, 3+. NEUROLOGIC: The patient is awake, alert and oriented x3. Results Result Diagram: 12/12/16 0725 12/12/16 0725 Results 24 hrs Laboratory Tests Test 12/11/16 17:16 12/11/16 20:20 12/12/16 07:25 12/12/16 08:17 Bedside Glucose 73 110 50 L Anion Gap 18 H Basophils # 0.0 Basophils % 0.5 Blood Morphology Comment Blood Urea Nitrogen 44 H Calcium Level 7.3 L Carbon Dioxide Level 23 Chloride Level 92 L Creatinine 5.85 H Eosinophils # 0.1 Eosinophils % 0.8 Glucose Level 48 *L Hematocrit 27.1 L Hemoglobin 9.1 L Lymphocytes # 1.1 Lymphocytes % 17.4 Mean Corpuscular Hemoglobin 29.6 Mean Corpuscular Hemoglobin Concent 33.5 Mean Corpuscular Volume 88.5 Mean Platelet Volume 6.5 L Monocytes # 0.7 Monocytes % 10.6 Neutrophils # 4.5 Neutrophils % 70.7 Nucleated Red Blood Cells # 0.0 Nucleated Red Blood Cells % 0.0 Platelet Count 155 # Potassium Level 4.7 Red Blood Count 3.06 L Red Cell Distribution Width 20.2 H Sodium Level 128 L White Blood Count 6.3 # Test 12/12/16 08:32 12/12/16 08:47 12/12/16 09:12 12/12/16 10:07 Bedside Glucose 53 L 54 L 63 L 118 Test 12/12/16 11:58 12/12/16 14:11 Bedside Glucose 75 117 Medications Medications Current Medications Lorazepam (Ativan) 0.5 mg Q8H PRN PO ANXIETY Last administered on 2/21/17at 03: 26; Admin Dose 0.5 MG; Start 11/20/16 at 12:00 Ondansetron HCl (Zofran Inj) 4 mg Q6H PRN IV NAUSEA AND/OR VOMITING Last administered on 11/23/16 05:32; Admin Dose 4 MG; Start 11/20/16 at 12:00 Nitroglycerin (Nitroglycerin (Sl Tab) 0.4 Mg) 1 tab Q5M PRN SL CHEST PAIN; Start 11/20/16 at 12:00 Zolpidem Tartrate (Ambien) 5 mg QHS PRN PO INSOMNIA; Start 11/20/16 at 12:00 Pantoprazole (Protonix Tab) 40 mg DAILY@06 PO Last administered on 12/12/16 05 :51; Admin Dose 40 MG; Start 11/21/16 at 06:00 Miscellaneous Information 1 ea NOTE XX ; Start 11/20/16 at 12:30 Glucose (Glutose) 15 gm Q15M PRN PO DECREASED GLUCOSE; Start 11/20/16 at 12:30 Glucose (Glutose) 22.5 gm Q15M PRN PO DECREASED GLUCOSE; Start 11/20/16 at 12: 30 Dextrose (D50w Syringe) 25 ml Q15M PRN IV DECREASED GLUCOSE; Start 11/20/16 at 12:30 Dextrose (D50w Syringe) 50 ml Q15M PRN IV DECREASED GLUCOSE; Start 11/20/16 at 12:30 Glucagon (Glucagen) 1 mg Q15M PRN IM DECREASED GLUCOSE; Start 11/20/16 at 12:30 Glucose (Glutose) 15 gm Q15M PRN BUCCAL DECREASED GLUCOSE Last administered on 12/12/16 08:29; Admin Dose 15 GM; Start 11/20/16 at 12:30 Levothyroxine Sodium (Synthroid) 125 mcg DAILY@06 PO Last administered on 05:51; Admin Dose 125 MCG; Start 11/22/16 at 06:00 Guaifenesin (Robitussin Liquid Cup) 100 mg Q6H PRN PO COUGH Last administered on 11/25/16 21:58; Admin Dose 100 MG; Start 11/23/16 at 16:30 IV Flush (NS 10 ml) 10 ml PRN PRN IV IV PROTOCOL; Start 11/24/16 at 15:30 Insulin Glargine (Lantus) 15 unit HS SC Last administered on 12/11/16 21:30; Admin Dose 15 UNIT; Start 11/26/16 at 21:00 Midodrine 5 mg 5 mg BID@09,17 PRN PO sbp<80 Last administered on 12/12/16 15: 53; Admin Dose 5 MG; Start 11/28/16 at 17:00 Albumin Human (Albumin Human 25%) 100 ml @ 100 mls/hr ONCE PRN IV after paracentesis; Start 12/02/16 at 02:00 Morphine Sulfate (morphine) 2 mg Q3H PRN IV PAIN LEVEL 7-10 Last administered on 12/12/16 12:49; Admin Dose 2 MG; Start 12/04/16 at 10:00 Apixaban (Eliquis) 2.5 mg BID PO Last administered on 12/12/16 08:51; Admin Dose 2.5 MG; Start 12/08/16 at 21:00 Acetaminophen 650 mg 650 mg Q4H PRN PO PAIN LEVEL 1-3 OR FEVER Last administered on 12/11/16 01:53; Admin Dose 650 MG; Start 12/10/16 at 13:00 Ceftriaxone Sodium (Rocephin) 50 ml @ 100 mls/hr Q24H IVPB Last administered on 12/11/16 17:53; Admin Dose 100 MLS/HR; Start 12/11/16 at 17:30 Midodrine (Proamatine) 5 mg TID@,, PO ; Start 12/12/16 at 17:00 DICKSON GROSSMAN Dec 12, 2016 16:50
[2016-12-12] MEDS ORDERED: ALBUMIN HUMAN 25% 100 ML IV ONE (17:00)
[2016-12-12] MEDS: MIDODRINE 5 MG TAB PO SCH (17:00)
[2016-12-12] MEDS: CEFTRIAXONE 1 GM/50 ML (PMX) 50 ML IVPB SCH (17:34)
--- NOTE | 2016-12-12 18:56 | CONS ---
Date/Time of Note Date/Time of Note DATE: 12/12/16 TIME: 18:55 Assessment/Plan Assessment/Plan Additional Assessment/Plan Hypotension, intermittent AV fistula stenosis status post venoplasty Acute decompensated systolic and diastolic heart failure Cardiomyopathy, likely ischemic and nonischemic in origin with an ejection fraction less than 20%. (Denied cardiac transplant at [facility]) Biventricular pacemaker and ICD Mitral and tricuspid valve regurgitation. Severe pulmonary hypertension. End-stage renal disease on hemodialysis Ascites status post paracentesis Atrial fibrillation -Patient with hypotension and in discussion with nurse, happens after morphine. Patient requesting morphine on a consistent basis. Would consider adjusting narcotic medication regimen. Unfortunately, patient was unable to undergo hemodialysis secondary to hypotension. Consultation Date/Type/Reason Admit Date/Time Nov 20, 2016 at 09:34 Initial Consult Date 11/21/16 Type of Consultation: cv Referring Provider: DEMETRA BRUNO MD 24 HR Interval Summary Free Text/Dictation Patient denies chest pain or shortness of breath Exam/Review of Systems Vital Signs Vitals Vital Signs Date Time Temp Pulse Resp B/P Pulse Ox O2 Delivery O2 Flow Rate FiO2 12/12/16 18:00 94 76/47 12/12/16 15:17 97.9 18 95 12/09/16 15:30 Room Air Intake and Output 12/11/16 12/11/16 12/12/16 15:00 23:00 07:00 Intake Total 550 ml Output Total 3000 ml 300 ml Balance -3000 ml 250 ml Exam No apparent distress Constitutional: alert, frail, oriented Head: normocephalic Neck: supple Respiratory: other (Coarse breath sounds bilaterally with basal crackles, no wheezing) Cardiovascular: other (S1-S2 heard), regular rate and rhythm Gastrointestinal: ascites, bowel sounds, distended, non-tender, soft Extremities: edema Results Result Diagram: 12/12/16 0725 12/12/16 0725 Results 24 hrs Laboratory Tests Test 12/11/16 20:20 12/12/16 07:25 12/12/16 08:17 12/12/16 08:32 Bedside Glucose 110 50 L 53 L Anion Gap 18 H Basophils # 0.0 Basophils % 0.5 Blood Morphology Comment Blood Urea Nitrogen 44 H Calcium Level 7.3 L Carbon Dioxide Level 23 Chloride Level 92 L Creatinine 5.85 H Eosinophils # 0.1 Eosinophils % 0.8 Glucose Level 48 *L Hematocrit 27.1 L Hemoglobin 9.1 L Lymphocytes # 1.1 Lymphocytes % 17.4 Mean Corpuscular Hemoglobin 29.6 Mean Corpuscular Hemoglobin Concent 33.5 Mean Corpuscular Volume 88.5 Mean Platelet Volume 6.5 L Monocytes # 0.7 Monocytes % 10.6 Neutrophils # 4.5 Neutrophils % 70.7 Nucleated Red Blood Cells # 0.0 Nucleated Red Blood Cells % 0.0 Platelet Count 155 # Potassium Level 4.7 Red Blood Count 3.06 L Red Cell Distribution Width 20.2 H Sodium Level 128 L White Blood Count 6.3 # Test 12/12/16 08:47 12/12/16 09:12 12/12/16 10:07 12/12/16 11:58 Bedside Glucose 54 L 63 L 118 75 Test 12/12/16 14:11 12/12/16 17:33 Bedside Glucose 117 78 Medications Medications Current Medications Lorazepam (Ativan) 0.5 mg Q8H PRN PO ANXIETY Last administered on 12/12/16 03: 26; Admin Dose 0.5 MG; Start 11/20/16 at 12:00 Ondansetron HCl (Zofran Inj) 4 mg Q6H PRN IV NAUSEA AND/OR VOMITING Last administered on 11/23/16 05:32; Admin Dose 4 MG; Start 11/20/16 at 12:00 Nitroglycerin (Nitroglycerin (Sl Tab) 0.4 Mg) 1 tab Q5M PRN SL CHEST PAIN; Start 11/20/16 at 12:00 Zolpidem Tartrate (Ambien) 5 mg QHS PRN PO INSOMNIA; Start 11/20/16 at 12:00 Pantoprazole (Protonix Tab) 40 mg DAILY@06 PO Last administered on 12/12/16 05 :51; Admin Dose 40 MG; Start 11/21/16 at 06:00 Miscellaneous Information 1 ea NOTE XX ; Start 11/20/16 at 12:30 Glucose (Glutose) 15 gm Q15M PRN PO DECREASED GLUCOSE; Start 11/20/16 at 12:30 Glucose (Glutose) 22.5 gm Q15M PRN PO DECREASED GLUCOSE; Start 11/20/16 at 12: 30 Dextrose (D50w Syringe) 25 ml Q15M PRN IV DECREASED GLUCOSE; Start 11/20/16 at 12:30 Dextrose (D50w Syringe) 50 ml Q15M PRN IV DECREASED GLUCOSE; Start 11/20/16 at 12:30 Glucagon (Glucagen) 1 mg Q15M PRN IM DECREASED GLUCOSE; Start 11/20/16 at 12:30 Glucose (Glutose) 15 gm Q15M PRN BUCCAL DECREASED GLUCOSE Last administered on 12/12/16 08:29; Admin Dose 15 GM; Start 11/20/16 at 12:30 Levothyroxine Sodium (Synthroid) 125 mcg DAILY@06 PO Last administered on 05:51; Admin Dose 125 MCG; Start 11/22/16 at 06:00 Guaifenesin (Robitussin Liquid Cup) 100 mg Q6H PRN PO COUGH Last administered on 11/25/16 21:58; Admin Dose 100 MG; Start 11/23/16 at 16:30 IV Flush (NS 10 ml) 10 ml PRN PRN IV IV PROTOCOL; Start 11/24/16 at 15:30 Insulin Glargine (Lantus) 15 unit HS SC Last administered on 12/11/16 21:30; Admin Dose 15 UNIT; Start 11/26/16 at 21:00 Midodrine 5 mg 5 mg BID@09,17 PRN PO sbp<80 Last administered on 12/12/16 15: 53; Admin Dose 5 MG; Start 11/28/16 at 17:00 Albumin Human (Albumin Human 25%) 100 ml @ 100 mls/hr ONCE PRN IV after paracentesis; Start 12/02/16 at 02:00 Morphine Sulfate (morphine) 2 mg Q3H PRN IV PAIN LEVEL 7-10 Last administered on 12/12/16 12:49; Admin Dose 2 MG; Start 12/04/16 at 10:00 Apixaban (Eliquis) 2.5 mg BID PO Last administered on 12/12/16 08:51; Admin Dose 2.5 MG; Start 12/08/16 at 21:00 Acetaminophen 650 mg 650 mg Q4H PRN PO PAIN LEVEL 1-3 OR FEVER Last administered on 12/11/16 01:53; Admin Dose 650 MG; Start 12/10/16 at 13:00 Ceftriaxone Sodium (Rocephin) 50 ml @ 100 mls/hr Q24H IVPB Last administered on 12/12/16t 17:34; Admin Dose 100 MLS/HR; Start 12/11/16 at 17:30 Midodrine (Proamatine) 5 mg TID@09,13,17 PO ; Start 12/12/16 at 17:00 Harpreet Cee DO Dec 12, 2016 18:56
[2016-12-12] MEDS: INSULIN GLARGINE [LANtus] 3 ML PEN SC SCH (21:00)
[2016-12-13] VITALS (22 sets, daily range): BP systolic 81–109; BP diastolic 46–61; PULSE 67–119; RESP 18–20
[2016-12-13] MEDS: morphine 2 MG INJ IV PRN ×5 (02:01→21:10)
[2016-12-13] MEDS: LEVOTHYROXINE 125 MCG TAB PO SCH (05:49)
[2016-12-13] MEDS: PANTOPRAZOLE (EC) 40 MG TAB PO SCH (05:49)
[2016-12-13 07:16] LABS: CALCIUM 6.8 mg/dl (8.4-10.2); CREATININE 6.68 mg/dl (0.61-1.24)
[2016-12-13] MEDS: INSULIN ASPART [NOVOLOG] 3 ML PEN SC SCH ×4 (07:39→20:42)
[2016-12-13] MEDS ORDERED: ALBUMIN HUMAN 25% 100 ML IV ONE (08:30)
[2016-12-13 09:37] LABS: BASOPHILS % 0.8 % (0.0-2.0); EOSINOPHILS # 0.1 10^3/ul (0.0-0.5); EOSINOPHILS % 2.8 % (0.0-7.0); HEMOGLOBIN 9.1 g/dl (14.0-18.0); LYMPHOCYTES # 0.7 10^3/ul (0.8-2.9); LYMPHOCYTES % 13.2 % (15.0-51.0); MEAN CORPUSCULAR HEMOGLOBIN 30.3 pg (29.0-33.0); MEAN CORPUSCULAR HGB CONC 33.8 g/dl (32.0-37.0); MEAN CORPUSCULAR VOLUME 89.8 fl (82.0-101.0); MONOCYTE # 0.4 10^3/ul (0.3-0.9); MONOCYTES % 8.3 % (0.0-11.0); NEUTROPHIL # 3.9 10^3/ul (1.6-7.5); NEUTROPHILS % 74.9 % (39.0-77.0); PLATELET COUNT 131 10^3/UL (140-440); RED BLOOD COUNT 3.01 10^6/ul (4.70-6.10); UNCORRECTED WBC 5.2 10^3/ul (4.8-10.8); WHITE BLOOD COUNT 5.2 10^3/ul (4.8-10.8)
[2016-12-13 09:40] LABS: CONDITION 1; LH ANALYZER COMMENTS 1
[2016-12-13] MEDS: MIDODRINE 5 MG TAB PO SCH ×3 (10:32→17:26)
[2016-12-13] MEDS: APIXABAN 5 MG TABLET PO SCH ×2 (10:35→21:10)
--- NOTE | 2016-12-13 13:32 | PN ---
Date/Time of Note Date/Time of Note DATE: 12/13/16 TIME: 13:31 Assessment/Plan VTE Prophylaxis VTE Prophylaxis Intervention: SCD's Lines/Catheters IV Catheter Type (from [facility]): PICC Line Central line still needed: No Urinary Cath still in place: No Assessment/Plan Chief Complaint/Hosp Course The patient is a 66-year-old male with history of coronary artery disease status post CABG, pacemaker, patient with end-stage renal failure on dialysis. The patient stated that he had his last dialysis this Sunday on November 18. The patient with history of portal hypertension and congestive heart failure. The patient presented to the emergency room with a distended abdomen due to recurrent ascites and patient underwent paracentesis with removal of 8.5 liters of serous fluid. The patient also noted to have elevated potassium of 6 and was given Kayexalate. The patient complained of increased bilateral lower extremities edema and shortness of breath. The patient was also given Lasix and breathing treatment and the patient will be admitted for further evaluation and management to telemetry floor. Problems: Assessment/Plan Hypotension, intermittent AV fistula stenosis status post venoplasty Acute decompensated systolic and diastolic heart failure Cardiomyopathy, likely ischemic and nonischemic in origin with an ejection fraction less than 20%. (Denied cardiac transplant at [facility]) Biventricular pacemaker and ICD Mitral and tricuspid valve regurgitation. Severe pulmonary hypertension. End-stage renal disease on hemodialysis Ascites status post paracentesis Atrial fibrillation -Patient with hypotension yesterday Patient requesting morphine on a consistent basis. Would consider adjusting narcotic medication regimen. Unfortunately, patient was unable to undergo hemodialysis secondary to hypotension yesterday Subjective 24 Hr Interval Summary Free Text/Dictation the patient slowly improving Exam/Review of Systems Vital Signs Vitals Vital Signs Date Time Temp Pulse Resp B/P Pulse Ox O2 Delivery O2 Flow Rate FiO2 12/13/16 12:10 119 12/13/16 11:50 16 12/13/16 11:13 97.9 95/53 97 12/13/16 01:58 Room Air Intake and Output 12/12/16 12/12/16 12/13/16 15:00 23:00 07:00 Intake Total 450 ml 850 ml 500 ml Output Total 400 ml 200 ml 500 ml Balance 50 ml 650 ml 0 ml Results Result Diagram: 12/13/16 0600 12/13/16 0600 Results 24 hrs Laboratory Tests Test 12/12/16 14:11 12/12/16 17:33 12/12/16 21:25 12/13/16 06:00 Bedside Glucose 117 78 106 Anion Gap 20 H Basophils # 0.0 Basophils % 0.8 Blood Morphology Comment Blood Urea Nitrogen 54 H Calcium Level 6.8 L Carbon Dioxide Level 22 Chloride Level 90 L Creatinine 6.68 H Eosinophils # 0.1 Eosinophils % 2.8 Glucose Level 98 # Hematocrit 27.0 L Hemoglobin 9.1 L Lymphocytes # 0.7 L Lymphocytes % 13.2 L Mean Corpuscular Hemoglobin 30.3 Mean Corpuscular Hemoglobin Concent 33.8 Mean Corpuscular Volume 89.8 Mean Platelet Volume 7.0 L Monocytes # 0.4 Monocytes % 8.3 Neutrophils # 3.9 Neutrophils % 74.9 Nucleated Red Blood Cells # 0.0 Nucleated Red Blood Cells % 0.0 Platelet Count 131 L Potassium Level 5.0 Red Blood Count 3.01 L Red Cell Distribution Width 21.0 H Sodium Level 127 L White Blood Count 5.2 Test 12/13/16 07:38 12/13/16 11:33 Bedside Glucose 125 115 Medications Medications Current Medications Lorazepam (Ativan) 0.5 mg Q8H PRN PO ANXIETY Last administered on 12/12/16 03: 26; Admin Dose 0.5 MG; Start 11/20/16 at 12:00 Ondansetron HCl (Zofran Inj) 4 mg Q6H PRN IV NAUSEA AND/OR VOMITING Last administered on 11/23/16 05:32; Admin Dose 4 MG; Start 11/20/16 at 12:00 Nitroglycerin (Nitroglycerin (Sl Tab) 0.4 Mg) 1 tab Q5M PRN SL CHEST PAIN; Start 11/20/16 at 12:00 Zolpidem Tartrate (Ambien) 5 mg QHS PRN PO INSOMNIA; Start 11/20/16 at 12:00 Pantoprazole (Protonix Tab) 40 mg DAILY@06 PO Last administered on 12/13/16 05 :49; Admin Dose 40 MG; Start 11/21/16 at 06:00 Miscellaneous Information 1 ea NOTE XX ; Start 11/20/16 at 12:30 Glucose (Glutose) 15 gm Q15M PRN PO DECREASED GLUCOSE; Start 11/20/16 at 12:30 Glucose (Glutose) 22.5 gm Q15M PRN PO DECREASED GLUCOSE; Start 11/20/16 at 12: 30 Dextrose (D50w Syringe) 25 ml Q15M PRN IV DECREASED GLUCOSE; Start 11/20/16 at 12:30 Dextrose (D50w Syringe) 50 ml Q15M PRN IV DECREASED GLUCOSE; Start 11/20/16 at 12:30 Glucagon (Glucagen) 1 mg Q15M PRN IM DECREASED GLUCOSE; Start 11/20/16 at 12:30 Glucose (Glutose) 15 gm Q15M PRN BUCCAL DECREASED GLUCOSE Last administered on 12/12/16 08:29; Admin Dose 15 GM; Start 11/20/16 at 12:30 Levothyroxine Sodium (Synthroid) 125 mcg DAILY@06 PO Last administered on 05:49; Admin Dose 125 MCG; Start 11/22/16 at 06:00 Guaifenesin (Robitussin Liquid Cup) 100 mg Q6H PRN PO COUGH Last administered on 11/25/16 21:58; Admin Dose 100 MG; Start 11/23/16 at 16:30 IV Flush (NS 10 ml) 10 ml PRN PRN IV IV PROTOCOL; Start 11/24/16 at 15:30 Insulin Glargine (Lantus) 15 unit HS SC Last administered on 12/11/16 21:30; Admin Dose 15 UNIT; Start 11/26/16 at 21:00 Midodrine 5 mg 5 mg BID@,17 PRN PO sbp<80 Last administered on 12/12/16 15: 53; Admin Dose 5 MG; Start 11/28/16 at 17:00 Albumin Human (Albumin Human 25%) 100 ml @ 100 mls/hr ONCE PRN IV after paracentesis; Start 12/02/16 at 02:00 Morphine Sulfate (morphine) 2 mg Q3H PRN IV PAIN LEVEL 7-10 Last administered on 12/13/16 10:28; Admin Dose 2 MG; Start 12/04/16 at 10:00 Apixaban (Eliquis) 2.5 mg BID PO Last administered on 12/13/16 10:35; Admin Dose 2.5 MG; Start 12/08/16 at 21:00 Acetaminophen 650 mg 650 mg Q4H PRN PO PAIN LEVEL 1-3 OR FEVER Last administered on 12/11/16 01:53; Admin Dose 650 MG; Start 12/10/16 at 13:00 Ceftriaxone Sodium (Rocephin) 50 ml @ 100 mls/hr Q24H IVPB Last administered on 12/12/16 17:34; Admin Dose 100 MLS/HR; Start 12/11/16 at 17:30 Midodrine (Proamatine) 5 mg TID@09,13,17 PO Last administered on 12/13/16 13: 19; Admin Dose 5 MG; Start 12/12/16 at 17:00 BERNABE JOYCE MD Dec 13, 2016 13:31
--- NOTE | 2016-12-13 15:39 | PN ---
Date/Time of Note Date/Time of Note DATE: 12/13/16 TIME: 15:36 Assessment/Plan VTE Prophylaxis VTE Prophylaxis Intervention: SCD's Lines/Catheters IV Catheter Type (from Nrs): PICC Line Central line still needed: Yes Urinary Cath still in place: No Assessment/Plan Chief Complaint/Hosp Course ASSESSMENT AND PLAN: - Rule out spontaneous bacterial peritonitis, f/up on blood cultures stat, peritoneal catheter fluid culture, continue Rocephin. - Status post mechanical fall yesterday most likely secondary to low blood pressure. Brain CT is negative, hip x-ray is negative for fracture. - Severe hypotension requiring pressors, resolved. - Congestive heart failure exacerbation with ejection fraction of 20% per last echo. Continue to remove fluids with hemodialysis. - Ascites, status post paracentesis on11/20, 12/02. S/p tunneled peritoneal drainage catheter placement 12/06. - End-stage renal disease, hemodialysis-dependent. Dr. Maddox is following from nephrology standpoint. Continue patient on hemodialysis. - Coronary artery disease status post coronary artery bypass graft. Continue patient on aspirin and Coreg. Dr. Cee is following from cardiology standpoint. - Hypothyroidism. TSH is 14, Synthroid increased to 125. - Diabetes mellitus type 2. Continue to monitor blood sugar with mild algorithm scale, NovoLog coverage. - Hemodialysis access, status post right AV fistulogram by Dr. Loco, vascular surgery on 11/21. - Liver cirrhosis and portal hypertension. Dr. Kirkpatrick is following in gastroenterology consultation. Continue Protonix for peptic ulcer disease prophylaxis. Further recommendations based on clinical course. Plan of care discussed with Dr. Vick. Problems: Subjective 24 Hr Interval Summary Free Text/Dictation Patient status post hemodialysis today in the morning, patient is awake alert, complains of generalized weakness, afebrile. Exam/Review of Systems Vital Signs Vitals Vital Signs Date Time Temp Pulse Resp B/P Pulse Ox O2 Delivery O2 Flow Rate FiO2 12/13/16 15:05 98.0 67 20 95 12/13/16 01:58 Room Air Intake and Output 12/12/16 12/12/16 12/13/16 15:00 23:00 07:00 Intake Total 450 ml 850 ml 500 ml Output Total 400 ml 200 ml 500 ml Balance 50 ml 650 ml 0 ml Exam GENERAL: well-developed, well-nourished male, currently is awake, alert. Left eyebrow abrasion and bruising. HEENT: Head is atraumatic, normocephalic. NECK: Supple. JVD is present, no cervical lymphadenopathy. CHEST: Lungs are clear bilaterally, slightly diminished at the bases. CARDIOVASCULAR: Regular rhythm and rate, normal S1, S2. No murmurs, gallops, clicks, rubs noted. The patient has a left chest permanent pacemaker with AICD. GASTROINTESTINAL: Abdomen is protuberant, soft, slightly distended, nontender. Bowel sounds present. No guarding, no rebound tenderness. Peritoneal catheter. SKIN: No rash, petechiae. EXTREMITIES: The patient has bilateral lower extremity edema, 3+. NEUROLOGIC: The patient is awake, alert and oriented x3. Results Result Diagram: 12/13/16 0600 12/13/16 0600 Results 24 hrs Laboratory Tests Test 12/12/16 17:33 12/12/16 21:25 12/13/16 06:00 12/13/16 07:38 Bedside Glucose 78 106 125 Anion Gap 20 H Basophils # 0.0 Basophils % 0.8 Blood Morphology Comment Blood Urea Nitrogen 54 H Calcium Level 6.8 L Carbon Dioxide Level 22 Chloride Level 90 L Creatinine 6.68 H Eosinophils # 0.1 Eosinophils % 2.8 Glucose Level 98 # Hematocrit 27.0 L Hemoglobin 9.1 L Lymphocytes # 0.7 L Lymphocytes % 13.2 L Mean Corpuscular Hemoglobin 30.3 Mean Corpuscular Hemoglobin Concent 33.8 Mean Corpuscular Volume 89.8 Mean Platelet Volume 7.0 L Monocytes # 0.4 Monocytes % 8.3 Neutrophils # 3.9 Neutrophils % 74.9 Nucleated Red Blood Cells # 0.0 Nucleated Red Blood Cells % 0.0 Platelet Count 131 L Potassium Level 5.0 Red Blood Count 3.01 L Red Cell Distribution Width 21.0 H Sodium Level 127 L White Blood Count 5.2 Test 12/13/16 11:33 Bedside Glucose 115 Medications Medications Current Medications Lorazepam (Ativan) 0.5 mg Q8H PRN PO ANXIETY Last administered on 12/12/16 03: 26; Admin Dose 0.5 MG; Start 11/20/16 at 12:00 Ondansetron HCl (Zofran Inj) 4 mg Q6H PRN IV NAUSEA AND/OR VOMITING Last administered on 11/23/16 05:32; Admin Dose 4 MG; Start 11/20/16 at 12:00 Nitroglycerin (Nitroglycerin (Sl Tab) 0.4 Mg) 1 tab Q5M PRN SL CHEST PAIN; Start 11/20/16 at 12:00 Zolpidem Tartrate (Ambien) 5 mg QHS PRN PO INSOMNIA; Start 11/20/16 at 12:00 Pantoprazole (Protonix Tab) 40 mg DAILY@06 PO Last administered on 12/13/16 05 :49; Admin Dose 40 MG; Start 11/21/16 at 06:00 Miscellaneous Information 1 ea NOTE XX ; Start 11/20/16 at 12:30 Glucose (Glutose) 15 gm Q15M PRN PO DECREASED GLUCOSE; Start 11/20/16 at 12:30 Glucose (Glutose) 22.5 gm Q15M PRN PO DECREASED GLUCOSE; Start 11/20/16 at 12: 30 Dextrose (D50w Syringe) 25 ml Q15M PRN IV DECREASED GLUCOSE; Start 11/20/16 at 12:30 Dextrose (D50w Syringe) 50 ml Q15M PRN IV DECREASED GLUCOSE; Start 11/20/16 at 12:30 Glucagon (Glucagen) 1 mg Q15M PRN IM DECREASED GLUCOSE; Start 11/20/16 at 12:30 Glucose (Glutose) 15 gm Q15M PRN BUCCAL DECREASED GLUCOSE Last administered on 12/12/16 08:29; Admin Dose 15 GM; Start 11/20/16 at 12:30 Levothyroxine Sodium (Synthroid) 125 mcg DAILY@06 PO Last administered on 05:49; Admin Dose 125 MCG; Start 11/22/16 at 06:00 Guaifenesin (Robitussin Liquid Cup) 100 mg Q6H PRN PO COUGH Last administered on 11/25/16 21:58; Admin Dose 100 MG; Start 11/23/16 at 16:30 IV Flush (NS 10 ml) 10 ml PRN PRN IV IV PROTOCOL; Start 11/24/16 at 15:30 Insulin Glargine (Lantus) 15 unit HS SC Last administered on 12/11/16 21:30; Admin Dose 15 UNIT; Start 11/26/16 at 21:00 Midodrine 5 mg 5 mg BID@09,17 PRN PO sbp<80 Last administered on 12/12/16 15: 53; Admin Dose 5 MG; Start 11/28/16 at 17:00 Albumin Human (Albumin Human 25%) 100 ml @ 100 mls/hr ONCE PRN IV after paracentesis; Start 12/02/16 at 02:00 Morphine Sulfate (morphine) 2 mg Q3H PRN IV PAIN LEVEL 7-10 Last administered on 12/13/16 14:57; Admin Dose 2 MG; Start 12/04/16 at 10:00 Apixaban (Eliquis) 2.5 mg BID PO Last administered on 12/13/16 10:35; Admin Dose 2.5 MG; Start 12/08/16 at 21:00 Acetaminophen 650 mg 650 mg Q4H PRN PO PAIN LEVEL 1-3 OR FEVER Last administered on 12/11/16 01:53; Admin Dose 650 MG; Start 12/10/16 at 13:00 Ceftriaxone Sodium (Rocephin) 50 ml @ 100 mls/hr Q24H IVPB Last administered on 12/12/16 17:34; Admin Dose 100 MLS/HR; Start 12/11/16 at 17:30 Midodrine (Proamatine) 5 mg TID@ PO Last administered on 12/13/16 13: 19; Admin Dose 5 MG; Start 12/12/16 at 17:00 DICKSON GROSSMAN Dec 13, 2016 15:39
--- NOTE | 2016-12-13 16:22 | CONS ---
Date/Time of Note Date/Time of Note DATE: 12/13/16 TIME: 16:19 Assessment/Plan Assessment/Plan Chief Complaint/Hosp Course Next HD in AM Problems: Additional Assessment/Plan Pt was getting HD when seen. Will need UF because of presence of edema Consultation Date/Type/Reason Admit Date/Time Nov 20, 2016 at 09:34 Initial Consult Date 11/21/16 Type of Consultation: renal Referring Provider: DEMETRA BRUNO MD 24 HR Interval Summary Free Text/Dictation Pt continues to lie comfortably in bed He could not be dialyzed yesterday because of low BP He has no new complaints Exam/Review of Systems Vital Signs Vitals Vital Signs Date Time Temp Pulse Resp B/P Pulse Ox O2 Delivery O2 Flow Rate FiO2 12/13/16 15:05 98.0 67 20 94/61 95 12/13/16 01:58 Room Air Intake and Output 12/12/16 12/12/16 12/13/16 15:00 23:00 07:00 Intake Total 450 ml 850 ml 500 ml Output Total 400 ml 200 ml 500 ml Balance 50 ml 650 ml 0 ml Exam Constitutional: alert, oriented, well developed Psych: nl mood/affect, no complaints Head: atraumatic, normocephalic Eyes: EOMI, PERRL, nl conjunctiva, nl lids, nl sclera ENMT: nl external ears & nose, nl lips & teeth, nl nasal mucosa & septum Neck: non-tender, supple Respiratory: clear to auscultation, normal air movement Cardiovascular: nl pulses, regular rate and rhythm Gastrointestinal: ascites (decreased), nl liver, spleen, non-tender, soft Musculoskeletal: nl extremities to inspection, nl gait and stance Extremities: edema, normal pulses 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: CPHT 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, nl mental status, nl speech, nl strength Skin: nl turgor, No rash or lesions Lymph: nl lymph nodes Results Result Diagram: 12/13/16 0600 12/13/16 0600 Results 24 hrs Laboratory Tests Test 12/12/16 17:33 12/12/16 21:25 12/13/16 06:00 12/13/16 07:38 Bedside Glucose 78 106 125 Anion Gap 20 H Basophils # 0.0 Basophils % 0.8 Blood Morphology Comment Blood Urea Nitrogen 54 H Calcium Level 6.8 L Carbon Dioxide Level 22 Chloride Level 90 L Creatinine 6.68 H Eosinophils # 0.1 Eosinophils % 2.8 Glucose Level 98 # Hematocrit 27.0 L Hemoglobin 9.1 L Lymphocytes # 0.7 L Lymphocytes % 13.2 L Mean Corpuscular Hemoglobin 30.3 Mean Corpuscular Hemoglobin Concent 33.8 Mean Corpuscular Volume 89.8 Mean Platelet Volume 7.0 L Monocytes # 0.4 Monocytes % 8.3 Neutrophils # 3.9 Neutrophils % 74.9 Nucleated Red Blood Cells # 0.0 Nucleated Red Blood Cells % 0.0 Platelet Count 131 L Potassium Level 5.0 Red Blood Count 3.01 L Red Cell Distribution Width 21.0 H Sodium Level 127 L White Blood Count 5.2 Test 12/13/16 11:33 Bedside Glucose 115 Medications Medications Current Medications Lorazepam (Ativan) 0.5 mg Q8H PRN PO ANXIETY Last administered on 12/12/16 03: 26; Admin Dose 0.5 MG; Start 11/20/16 at 12:00 Ondansetron HCl (Zofran Inj) 4 mg Q6H PRN IV NAUSEA AND/OR VOMITING Last administered on 11/23/16 05:32; Admin Dose 4 MG; Start 11/20/16 at 12:00 Nitroglycerin (Nitroglycerin (Sl Tab) 0.4 Mg) 1 tab Q5M PRN SL CHEST PAIN; Start 11/20/16 at 12:00 Zolpidem Tartrate (Ambien) 5 mg QHS PRN PO INSOMNIA; Start 11/20/16 at 12:00 Pantoprazole (Protonix Tab) 40 mg DAILY@06 PO Last administered on 12/13/16 05 :49; Admin Dose 40 MG; Start 11/21/16 at 06:00 Miscellaneous Information 1 ea NOTE XX ; Start 11/20/16 at 12:30 Glucose (Glutose) 15 gm Q15M PRN PO DECREASED GLUCOSE; Start 11/20/16 at 12:30 Glucose (Glutose) 22.5 gm Q15M PRN PO DECREASED GLUCOSE; Start 11/20/16 at 12: 30 Dextrose (D50w Syringe) 25 ml Q15M PRN IV DECREASED GLUCOSE; Start 11/20/16 at 12:30 Dextrose (D50w Syringe) 50 ml Q15M PRN IV DECREASED GLUCOSE; Start 11/20/16 at 12:30 Glucagon (Glucagen) 1 mg Q15M PRN IM DECREASED GLUCOSE; Start 11/20/16 at 12:30 Glucose (Glutose) 15 gm Q15M PRN BUCCAL DECREASED GLUCOSE Last administered on 12/12/16 08:29; Admin Dose 15 GM; Start 11/20/16 at 12:30 Levothyroxine Sodium (Synthroid) 125 mcg DAILY@06 PO Last administered on 05:49; Admin Dose 125 MCG; Start 11/22/16 at 06:00 Guaifenesin (Robitussin Liquid Cup) 100 mg Q6H PRN PO COUGH Last administered on 11/25/16 21:58; Admin Dose 100 MG; Start 11/23/16 at 16:30 IV Flush (NS 10 ml) 10 ml PRN PRN IV IV PROTOCOL; Start 11/24/16 at 15:30 Insulin Glargine (Lantus) 15 unit HS SC Last administered on 12/11/16 21:30; Admin Dose 15 UNIT; Start 11/26/16 at 21:00 Midodrine 5 mg 5 mg BID@09,17 PRN PO sbp<80 Last administered on 12/12/16 15: 53; Admin Dose 5 MG; Start 11/28/16 at 17:00 Albumin Human (Albumin Human 25%) 100 ml @ 100 mls/hr ONCE PRN IV after paracentesis; Start 12/02/16 at 02:00 Morphine Sulfate (morphine) 2 mg Q3H PRN IV PAIN LEVEL 7-10 Last administered on 12/13/16 14:57; Admin Dose 2 MG; Start 12/04/16 at 10:00 Apixaban (Eliquis) 2.5 mg BID PO Last administered on 12/13/16 10:35; Admin Dose 2.5 MG; Start 12/08/16 at 21:00 Acetaminophen 650 mg 650 mg Q4H PRN PO PAIN LEVEL 1-3 OR FEVER Last administered on 12/11/16 01:53; Admin Dose 650 MG; Start 12/10/16 at 13:00 Ceftriaxone Sodium (Rocephin) 50 ml @ 100 mls/hr Q24H IVPB Last administered on 12/12/16 17:34; Admin Dose 100 MLS/HR; Start 12/11/16 at 17:30 Midodrine (Proamatine) 5 mg TID@,,17 PO Last administered on 12/13/16t 13: 19; Admin Dose 5 MG; Start 12/12/16 at 17:00 MILADY ANDERSON MD Dec 13, 2016 16:22
[2016-12-13] MEDS: CEFTRIAXONE 1 GM/50 ML (PMX) 50 ML IVPB SCH (17:26)
--- NOTE | 2016-12-13 19:56 | CONS ---
Date/Time of Note Date/Time of Note DATE: 12/13/16 TIME: 19:55 Assessment/Plan Assessment/Plan Additional Assessment/Plan ASSESSMENT: 1. Refractory ascites. 2. Ischemic cardiomyopathy. 3. End-stage renal disease. 4. Cirrhosis of liver. 5.s/p pleurex drain for ascites,3 liters removed today 6.leaking around Pleurex 67. left hip pain Plan drain ascitic fluid PRN PT Consultation Date/Type/Reason Admit Date/Time Nov 20, 2016 at 09:34 Initial Consult Date 11/21/16 Type of Consultation: renal Referring Provider: DEMETRA BRUNO MD 24 HR Interval Summary Free Text/Dictation c/o pain left hip Exam/Review of Systems Vital Signs Vitals Vital Signs Date Time Temp Pulse Resp B/P Pulse Ox O2 Delivery O2 Flow Rate FiO2 12/13/16 17:13 99 12/13/16 15:05 98.0 20 94/61 95 12/13/16 01:58 Room Air Intake and Output 12/12/16 12/12/16 12/13/16 15:00 23:00 07:00 Intake Total 450 ml 850 ml 500 ml Output Total 400 ml 200 ml 500 ml Balance 50 ml 650 ml 0 ml Exam Constitutional: alert, oriented, well developed Psych: nl mood/affect, no complaints Head: atraumatic, normocephalic Eyes: EOMI, PERRL, nl conjunctiva, nl lids, nl sclera ENMT: nl external ears & nose, nl lips & teeth, nl nasal mucosa & septum Neck: non-tender, supple Respiratory: clear to auscultation, normal air movement Cardiovascular: nl pulses, regular rate and rhythm Gastrointestinal: nl liver, spleen, non-tender, soft Musculoskeletal: nl extremities to inspection, nl gait and stance Extremities: normal pulses 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: ANCIENT [employer] 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, nl mental status, nl speech, nl strength Skin: nl turgor, No rash or lesions Lymph: nl lymph nodes Results Result Diagram: 12/13/16 0600 12/13/16 0600 Results 24 hrs Laboratory Tests Test 12/12/16 21:25 12/13/16 06:00 12/13/16 07:38 12/13/16 11:33 Bedside Glucose 106 125 115 Anion Gap 20 H Basophils # 0.0 Basophils % 0.8 Blood Morphology Comment Blood Urea Nitrogen 54 H Calcium Level 6.8 L Carbon Dioxide Level 22 Chloride Level 90 L Creatinine 6.68 H Eosinophils # 0.1 Eosinophils % 2.8 Glucose Level 98 # Hematocrit 27.0 L Hemoglobin 9.1 L Lymphocytes # 0.7 L Lymphocytes % 13.2 L Mean Corpuscular Hemoglobin 30.3 Mean Corpuscular Hemoglobin Concent 33.8 Mean Corpuscular Volume 89.8 Mean Platelet Volume 7.0 L Monocytes # 0.4 Monocytes % 8.3 Neutrophils # 3.9 Neutrophils % 74.9 Nucleated Red Blood Cells # 0.0 Nucleated Red Blood Cells % 0.0 Platelet Count 131 L Potassium Level 5.0 Red Blood Count 3.01 L Red Cell Distribution Width 21.0 H Sodium Level 127 L White Blood Count 5.2 Test 12/13/16 17:28 Bedside Glucose 151 Medications Medications Current Medications Lorazepam (Ativan) 0.5 mg Q8H PRN PO ANXIETY Last administered on 12/12/16 03: 26; Admin Dose 0.5 MG; Start 11/20/16 at 12:00 Ondansetron HCl (Zofran Inj) 4 mg Q6H PRN IV NAUSEA AND/OR VOMITING Last administered on 11/23/16 05:32; Admin Dose 4 MG; Start 11/20/16 at 12:00 Nitroglycerin (Nitroglycerin (Sl Tab) 0.4 Mg) 1 tab Q5M PRN SL CHEST PAIN; Start 11/20/16 at 12:00 Zolpidem Tartrate (Ambien) 5 mg QHS PRN PO INSOMNIA; Start 11/20/16 at 12:00 Pantoprazole (Protonix Tab) 40 mg DAILY@06 PO Last administered on 12/13/16 05 :49; Admin Dose 40 MG; Start 11/21/16 at 06:00 Miscellaneous Information 1 ea NOTE XX ; Start 11/20/16 at 12:30 Glucose (Glutose) 15 gm Q15M PRN PO DECREASED GLUCOSE; Start 11/20/16 at 12:30 Glucose (Glutose) 22.5 gm Q15M PRN PO DECREASED GLUCOSE; Start 11/20/16 at 12: 30 Dextrose (D50w Syringe) 25 ml Q15M PRN IV DECREASED GLUCOSE; Start 11/20/16 at 12:30 Dextrose (D50w Syringe) 50 ml Q15M PRN IV DECREASED GLUCOSE; Start 11/20/16 at 12:30 Glucagon (Glucagen) 1 mg Q15M PRN IM DECREASED GLUCOSE; Start 11/20/16 at 12:30 Glucose (Glutose) 15 gm Q15M PRN BUCCAL DECREASED GLUCOSE Last administered on 12/12/16 08:29; Admin Dose 15 GM; Start 11/20/16 at 12:30 Levothyroxine Sodium (Synthroid) 125 mcg DAILY@06 PO Last administered on 05:49; Admin Dose 125 MCG; Start 11/22/16 at 06:00 Guaifenesin (Robitussin Liquid Cup) 100 mg Q6H PRN PO COUGH Last administered on 11/25/16 21:58; Admin Dose 100 MG; Start 11/23/16 at 16:30 IV Flush (NS 10 ml) 10 ml PRN PRN IV IV PROTOCOL; Start 11/24/16 at 15:30 Insulin Glargine (Lantus) 15 unit HS SC Last administered on 12/11/16 21:30; Admin Dose 15 UNIT; Start 11/26/16 at 21:00 Midodrine 5 mg 5 mg BID@09,17 PRN PO sbp<80 Last administered on 12/12/16 15: 53; Admin Dose 5 MG; Start 11/28/16 at 17:00 Albumin Human (Albumin Human 25%) 100 ml @ 100 mls/hr ONCE PRN IV after paracentesis; Start 12/02/16 at 02:00 Morphine Sulfate (morphine) 2 mg Q3H PRN IV PAIN LEVEL 7-10 Last administered on 12/13/16 18:12; Admin Dose 2 MG; Start 12/04/16 at 10:00 Apixaban (Eliquis) 2.5 mg BID PO Last administered on 12/13/16 10:35; Admin Dose 2.5 MG; Start 12/08/16 at 21:00 Acetaminophen 650 mg 650 mg Q4H PRN PO PAIN LEVEL 1-3 OR FEVER Last administered on 12/11/16 01:53; Admin Dose 650 MG; Start 12/10/16 at 13:00 Ceftriaxone Sodium (Rocephin) 50 ml @ 100 mls/hr Q24H IVPB Last administered on 12/13/16 17:26; Admin Dose 100 MLS/HR; Start 12/11/16 at 17:30 Midodrine (Proamatine) 5 mg TID@,, PO Last administered on 12/13/16t 17: 26; Admin Dose 5 MG; Start 12/12/16 at 17:00 LOR MASON MD Dec 13, 2016 19:56
[2016-12-13] MEDS: INSULIN GLARGINE [LANtus] 3 ML PEN SC SCH (23:30)
[2016-12-14] VITALS (12 sets, daily range): BP systolic 85–103; BP diastolic 51–69; PULSE 72–109; RESP 16–20
[2016-12-14] MEDS: MIDODRINE 5 MG TAB PO PRN (02:36)
[2016-12-14] MEDS: LORAZEPAM 0.5 MG TAB PO PRN (02:36)
[2016-12-14] MEDS: morphine 2 MG INJ IV PRN ×5 (04:24→18:24)
[2016-12-14] MEDS: PANTOPRAZOLE (EC) 40 MG TAB PO SCH (06:00)
[2016-12-14] MEDS: LEVOTHYROXINE 125 MCG TAB PO SCH (06:00)
[2016-12-14 06:45] LABS: CREATININE 6.44 mg/dl (0.61-1.24)
[2016-12-14 06:46] LABS: CALCIUM 7.3 mg/dl (8.4-10.2)
[2016-12-14 07:17] LABS: BASOPHILS % 0.6 % (0.0-2.0); EOSINOPHILS % 1.4 % (0.0-7.0); HEMATOCRIT 28.4 % (42.0-52.0); LYMPHOCYTES % 19.1 % (15.0-51.0); MEAN CORPUSCULAR HGB CONC 31.7 g/dl (32.0-37.0); MEAN CORPUSCULAR VOLUME 91.6 fl (82.0-101.0); MEAN PLATELET VOLUME 9.5 fl (7.4-10.4); MONOCYTES % 11.7 % (0.0-11.0); NEUTROPHILS % 66.8 % (39.0-77.0); PLATELET COUNT 109 10^3/UL (140-440); RED CELL DISTRIBUTION WIDTH 19.9 % (11.5-14.5); WHITE BLOOD COUNT 4.9 10^3/ul (4.8-10.8)
[2016-12-14 07:18] LABS: EOSINOPHILS # 0.1 10^3/ul (0.0-0.5); LYMPHOCYTES # 0.9 10^3/ul (0.8-2.9); MONOCYTE # 0.6 10^3/ul (0.3-0.9); NEUTROPHIL # 3.2 10^3/ul (1.6-7.5)
[2016-12-14] MEDS: INSULIN ASPART [NOVOLOG] 3 ML PEN SC SCH ×4 (07:47→20:37)
[2016-12-14] MEDS: MIDODRINE 5 MG TAB PO SCH ×3 (08:30→17:11)
[2016-12-14] MEDS: APIXABAN 5 MG TABLET PO SCH ×2 (08:30→20:38)
[2016-12-14] MEDS ORDERED: VANCOMYCIN IV PER PHARMACY XX SCH (10:30)
[2016-12-14] MEDS ORDERED: VANCOMYCIN 1.5 GM in SOD CHLORIDE 0.9% 250 ML IVPB ONE (12:00)
--- NOTE | 2016-12-14 12:07 | CONS ---
Date/Time of Note Date/Time of Note DATE: 12/14/16 TIME: 12:05 Assessment/Plan Assessment/Plan Additional Assessment/Plan Hypotension, intermittent AV fistula stenosis status post venoplasty Acute decompensated systolic and diastolic heart failure Cardiomyopathy, likely ischemic and nonischemic in origin with an ejection fraction less than 20%. (Denied cardiac transplant at [facility]) Biventricular pacemaker and ICD Mitral and tricuspid valve regurgitation. Severe pulmonary hypertension. End-stage renal disease on hemodialysis Ascites status post paracentesis Atrial fibrillation -Continue anticoagulation if no contraindication. Patient requiring midodrine secondary to hemodialysis and hypotension. Consultation Date/Type/Reason Admit Date/Time Nov 20, 2016 at 09:34 Initial Consult Date 11/21/16 Type of Consultation: cv Referring Provider: DEMETRA BRUNO MD 24 HR Interval Summary Free Text/Dictation Denies shortness of breath, abdominal distention has improved Exam/Review of Systems Vital Signs Vitals Vital Signs Date Time Temp Pulse Resp B/P Pulse Ox O2 Delivery O2 Flow Rate FiO2 12/14/16 12:02 103 12/14/16 11:35 98.2 18 91/56 98 12/13/16 01:58 Room Air Intake and Output 12/13/16 12/13/16 12/14/16 15:00 23:00 07:00 Intake Total 600 ml 750 ml 500 ml Output Total 3800 ml 100 ml 3000 ml Balance -3200 ml 650 ml -2500 ml Exam No apparent distress Constitutional: alert, oriented, other (Eating lunch) Head: normocephalic Neck: supple Respiratory: other (Coarse breath sounds bilaterally, no wheezing) Cardiovascular: other (S1-S2 heard), regular rate and rhythm Gastrointestinal: ascites, bowel sounds, distended, non-tender, soft Extremities: edema Results Result Diagram: 12/14/16 0607 12/14/16 0607 Results 24 hrs Laboratory Tests Test 12/13/16 17:28 12/13/16 20:41 12/14/16 06:07 12/14/16 07:47 Bedside Glucose 151 110 101 Anion Gap 20 H Basophils # 0.0 Basophils % 0.6 Blood Urea Nitrogen 50 H Calcium Level 7.3 L Carbon Dioxide Level 22 Chloride Level 92 L Creatinine 6.44 H Eosinophils # 0.1 Eosinophils % 1.4 Glucose Level 97 Hematocrit 28.4 L Hemoglobin 9.0 L Lymphocytes # 0.9 Lymphocytes % 19.1 Mean Corpuscular Hemoglobin 29.0 Mean Corpuscular Hemoglobin Concent 31.7 L Mean Corpuscular Volume 91.6 Mean Platelet Volume 9.5 # Monocytes # 0.6 Monocytes % 11.7 H Neutrophils # 3.2 Neutrophils % 66.8 Nucleated Red Blood Cells # 0.0 Nucleated Red Blood Cells % 0.0 Platelet Count 109 L Potassium Level 5.0 Red Blood Count 3.10 L Red Cell Distribution Width 19.9 H Sodium Level 129 L White Blood Count 4.9 Test 12/14/16 11:37 Bedside Glucose 156 Medications Medications Current Medications Lorazepam (Ativan) 0.5 mg Q8H PRN PO ANXIETY Last administered on 12/14/16 02: 36; Admin Dose 0.5 MG; Start 11/20/16 at 12:00 Ondansetron HCl (Zofran Inj) 4 mg Q6H PRN IV NAUSEA AND/OR VOMITING Last administered on 11/23/16 05:32; Admin Dose 4 MG; Start 11/20/16 at 12:00 Nitroglycerin (Nitroglycerin (Sl Tab) 0.4 Mg) 1 tab Q5M PRN SL CHEST PAIN; Start 11/20/16 at 12:00 Zolpidem Tartrate (Ambien) 5 mg QHS PRN PO INSOMNIA; Start 11/20/16 at 12:00 Pantoprazole (Protonix Tab) 40 mg DAILY@06 PO Last administered on 12/14/16 06 :00; Admin Dose 40 MG; Start 11/21/16 at 06:00 Miscellaneous Information 1 ea NOTE XX ; Start 11/20/16 at 12:30 Glucose (Glutose) 15 gm Q15M PRN PO DECREASED GLUCOSE; Start 11/20/16 at 12:30 Glucose (Glutose) 22.5 gm Q15M PRN PO DECREASED GLUCOSE; Start 11/20/16 at 12: 30 Dextrose (D50w Syringe) 25 ml Q15M PRN IV DECREASED GLUCOSE; Start 11/20/16 at 12:30 Dextrose (D50w Syringe) 50 ml Q15M PRN IV DECREASED GLUCOSE; Start 11/20/16 at 12:30 Glucagon (Glucagen) 1 mg Q15M PRN IM DECREASED GLUCOSE; Start 11/20/16 at 12:30 Glucose (Glutose) 15 gm Q15M PRN BUCCAL DECREASED GLUCOSE Last administered on 12/12/16 08:29; Admin Dose 15 GM; Start 11/20/16 at 12:30 Levothyroxine Sodium (Synthroid) 125 mcg DAILY@06 PO Last administered on 06:00; Admin Dose 125 MCG; Start 11/22/16 at 06:00 Guaifenesin (Robitussin Liquid Cup) 100 mg Q6H PRN PO COUGH Last administered on 11/25/16 21:58; Admin Dose 100 MG; Start 11/23/16 at 16:30 IV Flush (NS 10 ml) 10 ml PRN PRN IV IV PROTOCOL; Start 11/24/16 at 15:30 Insulin Glargine (Lantus) 15 unit HS SC Last administered on 12/11/16 21:30; Admin Dose 15 UNIT; Start 11/26/16 at 21:00 Midodrine 5 mg 5 mg BID@09,17 PRN PO sbp<80 Last administered on 12/14/16 02: 36; Admin Dose 5 MG; Start 11/28/16 at 17:00 Albumin Human (Albumin Human 25%) 100 ml @ 100 mls/hr ONCE PRN IV after paracentesis; Start 12/02/16 at 02:00 Morphine Sulfate (morphine) 2 mg Q3H PRN IV PAIN LEVEL 7-10 Last administered on 12/14/16 11:35; Admin Dose 2 MG; Start 12/04/16 at 10:00 Apixaban (Eliquis) 2.5 mg BID PO Last administered on 12/14/16 08:30; Admin Dose 2.5 MG; Start 12/08/16 at 21:00 Acetaminophen (Tylenol Tab) 650 mg Q4H PRN PO PAIN LEVEL 1-3 OR FEVER Last administered on 12/11/16 01:53; Admin Dose 650 MG; Start 12/10/16 at 13:00 Midodrine 5 mg 5 mg TID@,,17 PO Last administered on 12/14/16 08:30; Admin Dose 5 MG; Start 12/12/16 at 17:00 Vancomycin HCl/ Sodium Chloride (Vancocin/NS) 250 ml @ 83.333 mls/ hr ONCE ONCE IVPB Last administered on 12/14/16 11:43; Admin Dose 83.333 MLS/HR; Start 12/14/16 at 12:00; Stop 12/14/16 at 14:59 Harpreet Cee DO Dec 14, 2016 12:07
--- NOTE | 2016-12-14 12:25 | PN ---
Date/Time of Note Date/Time of Note DATE: 12/14/16 TIME: 12:24 Assessment/Plan VTE Prophylaxis VTE Prophylaxis Intervention: other Lines/Catheters IV Catheter Type (from Nrs): PICC Line Central line still needed: Yes Urinary Cath still in place: No Assessment/Plan Assessment/Plan - Rule out spontaneous bacterial peritoniti - f/up on blood cultures stat, peritoneal catheter fluid culture, continue Rocephin. - Status post mechanical fall most likely secondary to low blood pressure. - Brain CT is negative, hip x-ray is negative for fracture. - Severe hypotension requiring pressors, resolved. - Congestive heart failure exacerbation with ejection fraction of 20% per last echo. - Continue to remove fluids with hemodialysis. - Ascites, status post paracentesis on11/20, 12/02. - per rehabilitation services aide S/p tunneled peritoneal drainage catheter placement 12/06. - End-stage renal disease, hemodialysis-dependent. - Dr. Maddox is following from nephrology standpoint. Continue patient on hemodialysis. - Coronary artery disease status post coronary artery bypass graft. Continue patient on aspirin and Coreg. - per Dr. Cee is following from cardiology standpoint. - Hypothyroidism. TSH is 14, Synthroid increased to 125. - Diabetes mellitus type 2. Continue to monitor blood sugar with mild algorithm scale, NovoLog coverage. - Hemodialysis access, status post right AV fistulogram by Dr. Loco, vascular surgery on 11/21. - Liver cirrhosis and portal hypertension. - per Dr. Kirkpatrick in gastroenterology consultation. Continue Protonix for peptic ulcer disease prophylaxis. Further recommendations based on clinical course. Plan of care discussed with Dr. Vick. Subjective 24 Hr Interval Summary Constitutional: other Eyes: no complaints ENT: bleeding Respiratory: no complaints Cardiovascular: no complaints Gastrointestinal: pain Exam/Review of Systems Vital Signs Vitals Vital Signs Date Time Temp Pulse Resp B/P Pulse Ox O2 Delivery O2 Flow Rate FiO2 12/14/16 12:02 103 12/14/16 11:35 98.2 18 91/56 98 12/13/16 01:58 Room Air Intake and Output 12/13/16 12/13/16 12/14/16 15:00 23:00 07:00 Intake Total 600 ml 750 ml 500 ml Output Total 3800 ml 100 ml 3000 ml Balance -3200 ml 650 ml -2500 ml Exam Constitutional: alert, oriented, well developed Psych: nl mood/affect Head: atraumatic Eyes: EOMI, nl sclera ENMT: nl external ears & nose Respiratory: diminished breath sounds Cardiovascular: nl pulses Gastrointestinal: non-tender, soft Results Result Diagram: 12/14/16 0607 12/14/16 0607 Results 24 hrs Laboratory Tests Test 12/13/16 17:28 12/13/16 20:41 12/14/16 06:07 12/14/16 07:47 Bedside Glucose 151 110 101 Anion Gap 20 H Basophils # 0.0 Basophils % 0.6 Blood Urea Nitrogen 50 H Calcium Level 7.3 L Carbon Dioxide Level 22 Chloride Level 92 L Creatinine 6.44 H Eosinophils # 0.1 Eosinophils % 1.4 Glucose Level 97 Hematocrit 28.4 L Hemoglobin 9.0 L Lymphocytes # 0.9 Lymphocytes % 19.1 Mean Corpuscular Hemoglobin 29.0 Mean Corpuscular Hemoglobin Concent 31.7 L Mean Corpuscular Volume 91.6 Mean Platelet Volume 9.5 # Monocytes # 0.6 Monocytes % 11.7 H Neutrophils # 3.2 Neutrophils % 66.8 Nucleated Red Blood Cells # 0.0 Nucleated Red Blood Cells % 0.0 Platelet Count 109 L Potassium Level 5.0 Red Blood Count 3.10 L Red Cell Distribution Width 19.9 H Sodium Level 129 L White Blood Count 4.9 Test 12/14/16 11:37 Bedside Glucose 156 Medications Medications Current Medications Lorazepam (Ativan) 0.5 mg Q8H PRN PO ANXIETY Last administered on 12/14/16 02: 36; Admin Dose 0.5 MG; Start 11/20/16 at 12:00 Ondansetron HCl (Zofran Inj) 4 mg Q6H PRN IV NAUSEA AND/OR VOMITING Last administered on 11/23/16 05:32; Admin Dose 4 MG; Start 11/20/16 at 12:00 Nitroglycerin (Nitroglycerin (Sl Tab) 0.4 Mg) 1 tab Q5M PRN SL CHEST PAIN; Start 11/20/16 at 12:00 Zolpidem Tartrate (Ambien) 5 mg QHS PRN PO INSOMNIA; Start 11/20/16 at 12:00 Pantoprazole (Protonix Tab) 40 mg DAILY@06 PO Last administered on 12/14/16 06 :00; Admin Dose 40 MG; Start 11/21/16 at 06:00 Miscellaneous Information 1 ea NOTE XX ; Start 11/20/16 at 12:30 Glucose (Glutose) 15 gm Q15M PRN PO DECREASED GLUCOSE; Start 11/20/16 at 12:30 Glucose (Glutose) 22.5 gm Q15M PRN PO DECREASED GLUCOSE; Start 11/20/16 at 12: 30 Dextrose (D50w Syringe) 25 ml Q15M PRN IV DECREASED GLUCOSE; Start 11/20/16 at 12:30 Dextrose (D50w Syringe) 50 ml Q15M PRN IV DECREASED GLUCOSE; Start 11/20/16 at 12:30 Glucagon (Glucagen) 1 mg Q15M PRN IM DECREASED GLUCOSE; Start 11/20/16 at 12:30 Glucose (Glutose) 15 gm Q15M PRN BUCCAL DECREASED GLUCOSE Last administered on 12/12/16 08:29; Admin Dose 15 GM; Start 11/20/16 at 12:30 Levothyroxine Sodium (Synthroid) 125 mcg DAILY@06 PO Last administered on 06:00; Admin Dose 125 MCG; Start 11/22/16 at 06:00 Guaifenesin (Robitussin Liquid Cup) 100 mg Q6H PRN PO COUGH Last administered on 11/25/16 21:58; Admin Dose 100 MG; Start 11/23/16 at 16:30 IV Flush (NS 10 ml) 10 ml PRN PRN IV IV PROTOCOL; Start 11/24/16 at 15:30 Insulin Glargine (Lantus) 15 unit HS SC Last administered on 12/11/16 21:30; Admin Dose 15 UNIT; Start 11/26/16 at 21:00 Midodrine 5 mg 5 mg BID@,17 PRN PO sbp<80 Last administered on 12/14/16 02: 36; Admin Dose 5 MG; Start 11/28/16 at 17:00 Albumin Human (Albumin Human 25%) 100 ml @ 100 mls/hr ONCE PRN IV after paracentesis; Start 12/02/16 at 02:00 Morphine Sulfate (morphine) 2 mg Q3H PRN IV PAIN LEVEL 7-10 Last administered on 12/14/16 11:35; Admin Dose 2 MG; Start 12/04/16 at 10:00 Apixaban (Eliquis) 2.5 mg BID PO Last administered on 12/14/16 08:30; Admin Dose 2.5 MG; Start 12/08/16 at 21:00 Acetaminophen (Tylenol Tab) 650 mg Q4H PRN PO PAIN LEVEL 1-3 OR FEVER Last administered on 12/11/16 01:53; Admin Dose 650 MG; Start 12/10/16 at 13:00 Midodrine 5 mg 5 mg TID@09,13,17 PO Last administered on 12/14/16 08:30; Admin Dose 5 MG; Start 12/12/16 at 17:00 Vancomycin HCl/ Sodium Chloride (Vancocin/NS) 250 ml @ 83.333 mls/ hr ONCE ONCE IVPB Last administered on 12/14/16 11:43; Admin Dose 83.333 MLS/HR; Start 12/14/16 at 12:00; Stop 12/14/16 at 14:59 PEBBLES REYES Dec 14, 2016 12:25
--- NOTE | 2016-12-14 13:38 | PN ---
DATE: 12/14/2016 SUBJECTIVE: The patient is alert, sitting in bed, eating lunch, looks comfortable. Complaining of abdominal pain. No fevers. LABORATORY DATA: WBC 4.9, platelets 109, no shift, no bands. BUN 50, creatinine 6.44. INDWELLINGS: The patient has a left upper extremity PICC line placed on 2016, left-sided abdominal drainage catheter, right upper extremity AV fistula. MICROBIOLOGY: Peritoneal fluid culture growing coagulase-negative staph species. Blood cultures have been negative. ANTIMICROBIALS: The patient was started on vancomycin, status post Rocephin. PHYSICAL EXAMINATION: GENERAL: This is a chronically ill-appearing, elderly man who is in no distress. HEENT: Head atraumatic, normocephalic. Sclerae anicteric. Buccal mucosa dry. NECK: Supple. CHEST: Rise symmetrical. Breath sounds diminished to bases. HEART: S1, S2. ABDOMEN: Distended, soft, with tenderness at left intra-abdominal catheter site. EXTREMITIES: Wasted. No cyanosis. SKIN: Positive for jaundice. ASSESSMENT: 1. Spontaneous bacterial peritonitis with intra-abdominal fluid cultures growing coagulase-negative staph species. 2. End-stage renal disease, hemodialysis dependent. 3. Ischemic cardiomyopathy. 4. Liver cirrhosis with ascites ==> status post PleurX drain placed. 5. Cachexia. 6. History of coronary artery bypass graft. PLAN: The patient remains clinically stable. Started on vancomycin today to cover coagulase-negative staph that grow in peritoneal fluid. Recommend discontinue intra-abdominal catheter secondary to infection. Continue antibiotics. Follow recommendations of consultants. Above was discussed with Dr. Vick and patient at bedside. Dictated By: SMITHA HERNANDEZ MACHINE WHITENER for PARVEZ ESTRADA MD NI/NTS Conf#: [id number] DID#: [id number]
--- NOTE | 2016-12-14 17:33 | CONS ---
DATE OF ADMISSION: 11/20/2016 DATE OF CONSULTATION: 12/14/2016 TYPE OF CONSULTATION: Infectious Disease. REASON FOR CONSULTATION: Antibiotic management. HISTORY OF PRESENT ILLNESS: Le Moreno is a 66-year-old male who comes in with shortness of b reath and abdominal pain. His past problems include: 1. Coronary artery disease. 2. Status post coronary artery bypass graft. 3. Pacemaker placement. 4. End-stage renal disease on hemodialysis. 5. Portal hypertension. 6. Congestive heart failure. The patient presented with a distended abdomen and recurrent ascites. He underwent paracentesis wit h removal of 8.5 liters of serous fluid. He was also noted to have an elevated potassium of 6, was given Kayexalate. He complained of increased bilateral lower extremity edema with shortness of shell th and was admitted. His past surgical history is positive for coronary artery bypass graft, AV shunt, and an AICD placem ent. The patient is a former smoker, a former alcoholic. Why an AICD was placed, God only knows, i t is unclear. HOSPITAL COURSE: The patient was seen by numerous physicians including renal, cardiology. He devel oped severe hypotension, requiring pressors, which resolved. His ejection fraction was 20%. On 05/2017 they continued to remove fluids with hemodialysis. Ascites, status post paracentesis. He h ad a PICC line placed. A fistulogram was done by Dr. Loco on 11/21/2016 for dialysis access, liver cirrhosis and portal hypertension, and Dr. Kirkpatrick is following up on that. More currently on the 11 22, the patient has a fever, rule out spontaneous bacterial peritonitis. Follow up blood cultures. Continue Rocephin, status post mechanical fall. On 12/12/2016 his white count was 6.3, H and H of 9.1 and 27.1, platelet count 155,000. BUN and creatinine 44/ 5.85. His peritoneal fluid grew out coagulase negative staph. Blood cultures are negative. His white count today is 4.9. BUN and crea tinine is 50/6.44. Spontaneous bacterial peritonitis with intra-abdominal fluid containing coag nega tive staph. The patient has cachexia. We started him on vancomycin to cover coag negative staph. Recommend discontinuing intra-abdominal catheter secondary to infection. He has a left-sided abdomi nal drainage catheter, right upper extremity AV fistula, left upper extremity PICC line. PAST MEDICAL HISTORY: Operations as outlined. FAMILY HISTORY: Noncontributory. SOCIAL HISTORY: He smokes, drinks, and abuses drugs. ALLERGIES: NONE TO PENICILLIN, SULFA, OR FOODS. MEDICATIONS: Per chart review. REVIEW OF SYSTEMS: As per HPI. PHYSICAL EXAMINATION: GENERAL: The patient is a chronically ill-appearing male who is awake, responsive, in no acute dist ress. VITAL SIGNS: Stable. He is afebrile. SKIN: Without generalized rash. HEENT: Within normal limits. He has left eyebrow abrasion and bruising. NECK: Supple. LYMPH NODES: None palpable. CHEST: Decreased breath sounds at the bases. Left chest has a permanent AICD. HEART: Without murmur or gallop. ABDOMEN: Soft, nontender, protuberant without organosplenomegaly or masses. Peritoneal catheter is as noted, in place. RECTAL AND GENITAL: Exams deferred. NEUROLOGIC: No focal neurological abnormalities. The patient has a PICC line as noted. RECOMMENDATION: Is to discontinue the peritoneal catheter that is in place ____ left-sided abdomina l drainage catheter, continue current therapy. I will dictate my findings to Dr. Vick. Dictated By: PARVEZ ESTRADA MD, JD/RAYNA Conf#: [id number] DID#: [id number]
--- NOTE | 2016-12-14 20:10 | CONS ---
Date/Time of Note Date/Time of Note DATE: 12/14/16 TIME: 20:08 Assessment/Plan Assessment/Plan Additional Assessment/Plan Additional Assessment/Plan ASSESSMENT: 1. Refractory ascites. 2. Ischemic cardiomyopathy. 3. End-stage renal disease. 4. Cirrhosis of liver. 5.s/p pleurex drain for ascites,3 liters removed today 6.leaking around Pleurex 7. left hip pain 8. SBP Plan drain ascitic fluid PRN PT antibiotic as per ID d/c drainage catheter Consultation Date/Type/Reason Admit Date/Time Nov 20, 2016 at 09:34 Initial Consult Date 11/21/16 Type of Consultation: cv Referring Provider: DEMETRA BRUNO MD 24 HR Interval Summary Constitutional: febrile Exam/Review of Systems Vital Signs Vitals Vital Signs Date Time Temp Pulse Resp B/P Pulse Ox O2 Delivery O2 Flow Rate FiO2 12/14/16 20:02 101 12/14/16 19:08 97.5 16 85/51 94 12/13/16 01:58 Room Air Intake and Output 12/13/16 12/13/16 12/14/16 15:00 23:00 07:00 Intake Total 600 ml 750 ml 500 ml Output Total 3800 ml 100 ml 3000 ml Balance -3200 ml 650 ml -2500 ml Exam Constitutional: alert, oriented, well developed Psych: nl mood/affect, no complaints Neck: non-tender, supple Respiratory: clear to auscultation, normal air movement Cardiovascular: nl pulses, regular rate and rhythm Gastrointestinal: ascites, distended Results Result Diagram: 12/14/16 0607 12/14/16 0607 Results 24 hrs Laboratory Tests Test 12/13/16 20:41 12/14/16 06:07 12/14/16 07:47 12/14/16 11:37 Bedside Glucose 110 101 156 Anion Gap 20 H Basophils # 0.0 Basophils % 0.6 Blood Urea Nitrogen 50 H Calcium Level 7.3 L Carbon Dioxide Level 22 Chloride Level 92 L Creatinine 6.44 H Eosinophils # 0.1 Eosinophils % 1.4 Glucose Level 97 Hematocrit 28.4 L Hemoglobin 9.0 L Lymphocytes # 0.9 Lymphocytes % 19.1 Mean Corpuscular Hemoglobin 29.0 Mean Corpuscular Hemoglobin Concent 31.7 L Mean Corpuscular Volume 91.6 Mean Platelet Volume 9.5 # Monocytes # 0.6 Monocytes % 11.7 H Neutrophils # 3.2 Neutrophils % 66.8 Nucleated Red Blood Cells # 0.0 Nucleated Red Blood Cells % 0.0 Platelet Count 109 L Potassium Level 5.0 Red Blood Count 3.10 L Red Cell Distribution Width 19.9 H Sodium Level 129 L White Blood Count 4.9 Test 12/14/16 17:12 Bedside Glucose 92 Medications Medications Current Medications Lorazepam (Ativan) 0.5 mg Q8H PRN PO ANXIETY Last administered on 12/14/16 02: 36; Admin Dose 0.5 MG; Start 11/20/16 at 12:00 Ondansetron HCl (Zofran Inj) 4 mg Q6H PRN IV NAUSEA AND/OR VOMITING Last administered on 11/23/16 05:32; Admin Dose 4 MG; Start 11/20/16 at 12:00 Nitroglycerin (Nitroglycerin (Sl Tab) 0.4 Mg) 1 tab Q5M PRN SL CHEST PAIN; Start 11/20/16 at 12:00 Zolpidem Tartrate (Ambien) 5 mg QHS PRN PO INSOMNIA; Start 11/20/16 at 12:00 Pantoprazole (Protonix Tab) 40 mg DAILY@06 PO Last administered on 12/14/16 06 :00; Admin Dose 40 MG; Start 11/21/16 at 06:00 Miscellaneous Information 1 ea NOTE XX ; Start 11/20/16 at 12:30 Glucose (Glutose) 15 gm Q15M PRN PO DECREASED GLUCOSE; Start 11/20/16 at 12:30 Glucose (Glutose) 22.5 gm Q15M PRN PO DECREASED GLUCOSE; Start 11/20/16 at 12: 30 Dextrose (D50w Syringe) 25 ml Q15M PRN IV DECREASED GLUCOSE; Start 11/20/16 at 12:30 Dextrose (D50w Syringe) 50 ml Q15M PRN IV DECREASED GLUCOSE; Start 11/20/16 at 12:30 Glucagon (Glucagen) 1 mg Q15M PRN IM DECREASED GLUCOSE; Start 11/20/16 at 12:30 Glucose (Glutose) 15 gm Q15M PRN BUCCAL DECREASED GLUCOSE Last administered on 12/12/16 08:29; Admin Dose 15 GM; Start 11/20/16 at 12:30 Levothyroxine Sodium (Synthroid) 125 mcg DAILY@06 PO Last administered on 06:00; Admin Dose 125 MCG; Start 11/22/16 at 06:00 Guaifenesin (Robitussin Liquid Cup) 100 mg Q6H PRN PO COUGH Last administered on 11/25/16 21:58; Admin Dose 100 MG; Start 11/23/16 at 16:30 IV Flush (NS 10 ml) 10 ml PRN PRN IV IV PROTOCOL; Start 11/24/16 at 15:30 Insulin Glargine (Lantus) 15 unit HS SC Last administered on 12/11/16 21:30; Admin Dose 15 UNIT; Start 11/26/16 at 21:00 Midodrine 5 mg 5 mg BID@,17 PRN PO sbp<80 Last administered on 12/14/16 02: 36; Admin Dose 5 MG; Start 11/28/16 at 17:00 Albumin Human (Albumin Human 25%) 100 ml @ 100 mls/hr ONCE PRN IV after paracentesis; Start 12/02/16 at 02:00 Morphine Sulfate (morphine) 2 mg Q3H PRN IV PAIN LEVEL 7-10 Last administered on 12/14/16 18:24; Admin Dose 2 MG; Start 12/04/16 at 10:00 Apixaban (Eliquis) 2.5 mg BID PO Last administered on 12/14/16 08:30; Admin Dose 2.5 MG; Start 12/08/16 at 21:00 Acetaminophen (Tylenol Tab) 650 mg Q4H PRN PO PAIN LEVEL 1-3 OR FEVER Last administered on 12/11/16 01:53; Admin Dose 650 MG; Start 12/10/16 at 13:00 Midodrine (Proamatine) 5 mg TID@,, PO Last administered on 12/14/16 17: 11; Admin Dose 5 MG; Start 12/12/16 at 17:00 LOR MASON MD Dec 14, 2016 20:10
[2016-12-14] MEDS: INSULIN GLARGINE [LANtus] 3 ML PEN SC SCH (20:47)
--- NOTE | 2016-12-14 22:07 | CONS ---
Date/Time of Note Date/Time of Note DATE: 12/14/16 TIME: 22:07 Assessment/Plan Assessment/Plan Chief Complaint/Hosp Course Next HD in AM Problems: Consultation Date/Type/Reason Admit Date/Time Nov 20, 2016 at 09:34 Initial Consult Date 11/21/16 Type of Consultation: cv Referring Provider: DEMETRA BRUNO MD Exam/Review of Systems Vital Signs Vitals Vital Signs Date Time Temp Pulse Resp B/P Pulse Ox O2 Delivery O2 Flow Rate FiO2 12/14/16 20:02 101 12/14/16 19:08 97.5 16 85/51 94 12/13/16 01:58 Room Air Intake and Output 12/13/16 12/13/16 12/14/16 15:00 23:00 07:00 Intake Total 600 ml 750 ml 500 ml Output Total 3800 ml 100 ml 3000 ml Balance -3200 ml 650 ml -2500 ml Results Result Diagram: 12/14/16 0607 12/14/16 0607 Results 24 hrs Laboratory Tests Test 12/14/16 06:07 12/14/16 07:47 12/14/16 11:37 12/14/16 17:12 Anion Gap 20 H Basophils # 0.0 Basophils % 0.6 Blood Urea Nitrogen 50 H Calcium Level 7.3 L Carbon Dioxide Level 22 Chloride Level 92 L Creatinine 6.44 H Eosinophils # 0.1 Eosinophils % 1.4 Glucose Level 97 Hematocrit 28.4 L Hemoglobin 9.0 L Lymphocytes # 0.9 Lymphocytes % 19.1 Mean Corpuscular Hemoglobin 29.0 Mean Corpuscular Hemoglobin Concent 31.7 L Mean Corpuscular Volume 91.6 Mean Platelet Volume 9.5 # Monocytes # 0.6 Monocytes % 11.7 H Neutrophils # 3.2 Neutrophils % 66.8 Nucleated Red Blood Cells # 0.0 Nucleated Red Blood Cells % 0.0 Platelet Count 109 L Potassium Level 5.0 Red Blood Count 3.10 L Red Cell Distribution Width 19.9 H Sodium Level 129 L White Blood Count 4.9 Bedside Glucose 101 156 92 Test 12/14/16 20:37 Bedside Glucose 101 Medications Medications Current Medications Lorazepam (Ativan) 0.5 mg Q8H PRN PO ANXIETY Last administered on 12/14/16t 02: 36; Admin Dose 0.5 MG; Start 11/20/16 at 12:00 Ondansetron HCl (Zofran Inj) 4 mg Q6H PRN IV NAUSEA AND/OR VOMITING Last administered on 11/23/16 05:32; Admin Dose 4 MG; Start 11/20/16 at 12:00 Nitroglycerin (Nitroglycerin (Sl Tab) 0.4 Mg) 1 tab Q5M PRN SL CHEST PAIN; Start 11/20/16 at 12:00 Zolpidem Tartrate (Ambien) 5 mg QHS PRN PO INSOMNIA; Start 11/20/16 at 12:00 Pantoprazole (Protonix Tab) 40 mg DAILY@06 PO Last administered on 12/14/16 06 :00; Admin Dose 40 MG; Start 11/21/16 at 06:00 Miscellaneous Information 1 ea NOTE XX ; Start 11/20/16 at 12:30 Glucose (Glutose) 15 gm Q15M PRN PO DECREASED GLUCOSE; Start 11/20/16 at 12:30 Glucose (Glutose) 22.5 gm Q15M PRN PO DECREASED GLUCOSE; Start 11/20/16 at 12: 30 Dextrose (D50w Syringe) 25 ml Q15M PRN IV DECREASED GLUCOSE; Start 11/20/16 at 12:30 Dextrose (D50w Syringe) 50 ml Q15M PRN IV DECREASED GLUCOSE; Start 11/20/16 at 12:30 Glucagon (Glucagen) 1 mg Q15M PRN IM DECREASED GLUCOSE; Start 11/20/16 at 12:30 Glucose (Glutose) 15 gm Q15M PRN BUCCAL DECREASED GLUCOSE Last administered on 12/12/16 08:29; Admin Dose 15 GM; Start 11/20/16 at 12:30 Levothyroxine Sodium (Synthroid) 125 mcg DAILY@06 PO Last administered on 06:00; Admin Dose 125 MCG; Start 11/22/16 at 06:00 Guaifenesin (Robitussin Liquid Cup) 100 mg Q6H PRN PO COUGH Last administered on 11/25/16 21:58; Admin Dose 100 MG; Start 11/23/16 at 16:30 IV Flush (NS 10 ml) 10 ml PRN PRN IV IV PROTOCOL; Start 11/24/16 at 15:30 Insulin Glargine (Lantus) 15 unit HS SC Last administered on 12/14/16 20:47; Admin Dose 15 UNIT; Start 11/26/16 at 21:00 Midodrine 5 mg 5 mg BID@,17 PRN PO sbp<80 Last administered on 12/14/16 02: 36; Admin Dose 5 MG; Start 11/28/16 at 17:00 Albumin Human (Albumin Human 25%) 100 ml @ 100 mls/hr ONCE PRN IV after paracentesis; Start 12/02/16 at 02:00 Morphine Sulfate (morphine) 2 mg Q3H PRN IV PAIN LEVEL 7-10 Last administered on 12/14/16 18:24; Admin Dose 2 MG; Start 12/04/16 at 10:00 Apixaban (Eliquis) 2.5 mg BID PO Last administered on 12/14/16 20:38; Admin Dose 2.5 MG; Start 12/08/16 at 21:00 Acetaminophen (Tylenol Tab) 650 mg Q4H PRN PO PAIN LEVEL 1-3 OR FEVER Last administered on 12/11/16 01:53; Admin Dose 650 MG; Start 12/10/16 at 13:00 Midodrine (Proamatine) 5 mg TID@,, PO Last administered on 12/14/16 17: 11; Admin Dose 5 MG; Start 12/12/16 at 17:00 MILADY ANDERSON MD Dec 14, 2016 22:07
[2016-12-15] VITALS (20 sets, daily range): BP systolic 85–111; BP diastolic 41–61; PULSE 82–105; RESP 16–18
[2016-12-15] MEDS: morphine 2 MG INJ IV PRN ×5 (00:08→18:18)
[2016-12-15] MEDS: PANTOPRAZOLE (EC) 40 MG TAB PO SCH (05:54)
[2016-12-15] MEDS: LEVOTHYROXINE 125 MCG TAB PO SCH (05:54)
[2016-12-15 06:20] LABS: ADD SCAN DIFF NO
[2016-12-15 06:47] LABS: ABNORMAL IP MESSAGE 1; BASOPHILS % 0.5 % (0.0-2.0); EOSINOPHILS # 0.1 10^3/ul (0.0-0.5); EOSINOPHILS % 2.6 % (0.0-7.0); HEMATOCRIT 28.9 % (42.0-52.0); HEMOGLOBIN 9.1 g/dl (14.0-18.0); LYMPHOCYTES # 0.9 10^3/ul (0.8-2.9); LYMPHOCYTES % 20.6 % (15.0-51.0); MEAN CORPUSCULAR HEMOGLOBIN 28.7 pg (29.0-33.0); MEAN CORPUSCULAR HGB CONC 31.5 g/dl (32.0-37.0); MEAN CORPUSCULAR VOLUME 91.2 fl (82.0-101.0); MEAN PLATELET VOLUME 9.6 fl (7.4-10.4); MONOCYTE # 0.7 10^3/ul (0.3-0.9); MONOCYTES % 15.2 % (0.0-11.0); NEUTROPHIL # 2.6 10^3/ul (1.6-7.5); NEUTROPHILS % 60.4 % (39.0-77.0); PLATELET COUNT 81 10^3/UL (140-415); RED BLOOD COUNT 3.17 10^6/ul (4.70-6.10); RED CELL DISTRIBUTION WIDTH 19.7 % (11.5-14.5); WHITE BLOOD COUNT 4.3 10^3/ul (4.8-10.8)
[2016-12-15 06:48] LABS: POTASSIUM 5.2 mmol/L (3.5-5.1)
[2016-12-15 06:50] LABS: CREATININE 7.13 mg/dl (0.61-1.24)
[2016-12-15 06:51] LABS: CALCIUM 7.2 mg/dl (8.4-10.2)
[2016-12-15] MEDS: INSULIN ASPART [NOVOLOG] 3 ML PEN SC SCH ×4 (07:55→21:00)
[2016-12-15] MEDS: APIXABAN 5 MG TABLET PO SCH ×2 (08:04→21:02)
[2016-12-15] MEDS: MIDODRINE 5 MG TAB PO SCH ×2 (08:04→13:24)
--- NOTE | 2016-12-15 14:16 | PN ---
Date/Time of Note Date/Time of Note DATE: 12/15/16 TIME: 14:14 Assessment/Plan VTE Prophylaxis VTE Prophylaxis Intervention: other Lines/Catheters IV Catheter Type (from Nrs): PICC Line Central line still needed: Yes Urinary Cath still in place: No Assessment/Plan Chief Complaint/Hosp Course ASSESSMENT AND PLAN: - Peritonitis, DC peritoneal catheter, continue antibiotics per ID. Dr. Stokes is following an infection disease consultation. - Status post mechanical fall. Brain CT is negative, hip x-ray is negative for fracture. - Severe hypotension requiring pressors, resolved. - Congestive heart failure exacerbation with ejection fraction of 20% per last echo. Continue to remove fluids with hemodialysis. - Ascites, status post paracentesis on11/20, 12/02. S/p tunneled peritoneal drainage catheter placement 12/06. - End-stage renal disease, hemodialysis-dependent. Dr. Maddox is following from nephrology standpoint. Continue patient on hemodialysis. - Coronary artery disease status post coronary artery bypass graft. Continue patient on aspirin and Coreg. Dr. Cee is following from cardiology standpoint. - Hypothyroidism. TSH is 14, Synthroid increased to 125. - Diabetes mellitus type 2. Continue to monitor blood sugar with mild algorithm scale, NovoLog coverage. - Hemodialysis access, status post right AV fistulogram by Dr. Loco, vascular surgery on 11/21. - Liver cirrhosis and portal hypertension. Dr. Kirkpatrick is following in gastroenterology consultation. Continue Protonix for peptic ulcer disease prophylaxis. Further recommendations based on clinical course. Plan of care discussed with Dr. Vick. Problems: Subjective 24 Hr Interval Summary Free Text/Dictation Patient is undergoing hemodialysis, afebrile, denies any nausea vomiting. Continues to have generalized weakness. Exam/Review of Systems Vital Signs Vitals Vital Signs Date Time Temp Pulse Resp B/P Pulse Ox O2 Delivery O2 Flow Rate FiO2 12/15/16 12:03 105 12/15/16 11:11 97.9 18 104/55 97 12/13/16 01:58 Room Air Intake and Output 12/14/16 12/14/16 12/15/16 15:00 23:00 07:00 Intake Total 250 ml 550 ml 240 ml Output Total 100 ml Balance 250 ml 450 ml 240 ml Exam GENERAL: well-developed, well-nourished male, currently is awake, alert. Left eyebrow abrasion and bruising. HEENT: Head is atraumatic, normocephalic. NECK: Supple. JVD is present, no cervical lymphadenopathy. CHEST: Lungs are clear bilaterally, slightly diminished at the bases. CARDIOVASCULAR: Regular rhythm and rate, normal S1, S2. No murmurs, gallops, clicks, rubs noted. The patient has a left chest permanent pacemaker with AICD. GASTROINTESTINAL: Abdomen is protuberant, soft, slightly distended, nontender. Bowel sounds present. No guarding, no rebound tenderness. Peritoneal catheter. SKIN: No rash, petechiae. EXTREMITIES: The patient has bilateral lower extremity edema, 3+. NEUROLOGIC: The patient is awake, alert and oriented x3. Results Result Diagram: 12/15/16 0600 12/15/16 0600 Results 24 hrs Laboratory Tests Test 12/14/16 17:12 12/14/16 20:37 12/15/16 06:00 12/15/16 07:42 Bedside Glucose 92 101 95 Anion Gap 22 H Basophils # 0.0 Basophils % 0.5 Blood Urea Nitrogen 56 H Calcium Level 7.2 L Carbon Dioxide Level 21 Chloride Level 89 L Creatinine 7.13 H Eosinophils # 0.1 Eosinophils % 2.6 Glucose Level 93 Hematocrit 28.9 L Hemoglobin 9.1 L Lymphocytes # 0.9 Lymphocytes % 20.6 Mean Corpuscular Hemoglobin 28.7 L Mean Corpuscular Hemoglobin Concent 31.5 L Mean Corpuscular Volume 91.2 Mean Platelet Volume 9.6 Monocytes # 0.7 Monocytes % 15.2 H Neutrophils # 2.6 Neutrophils % 60.4 Nucleated Red Blood Cells # 0.0 Nucleated Red Blood Cells % 0.0 Platelet Count 81 #L Potassium Level 5.2 H Red Blood Count 3.17 L Red Cell Distribution Width 19.7 H Sodium Level 127 L White Blood Count 4.3 L Test 12/15/16 11:32 Bedside Glucose 123 Medications Medications Current Medications Lorazepam (Ativan) 0.5 mg Q8H PRN PO ANXIETY Last administered on 12/14/16 02: 36; Admin Dose 0.5 MG; Start 11/20/16 at 12:00 Ondansetron HCl (Zofran Inj) 4 mg Q6H PRN IV NAUSEA AND/OR VOMITING Last administered on 11/23/16 05:32; Admin Dose 4 MG; Start 11/20/16 at 12:00 Nitroglycerin (Nitroglycerin (Sl Tab) 0.4 Mg) 1 tab Q5M PRN SL CHEST PAIN; Start 11/20/16 at 12:00 Zolpidem Tartrate (Ambien) 5 mg QHS PRN PO INSOMNIA; Start 11/20/16 at 12:00 Pantoprazole (Protonix Tab) 40 mg DAILY@06 PO Last administered on 12/15/16 05 :54; Admin Dose 40 MG; Start 11/21/16 at 06:00 Miscellaneous Information 1 ea NOTE XX ; Start 11/20/16 at 12:30 Glucose (Glutose) 15 gm Q15M PRN PO DECREASED GLUCOSE; Start 11/20/16 at 12:30 Glucose (Glutose) 22.5 gm Q15M PRN PO DECREASED GLUCOSE; Start 11/20/16 at 12: 30 Dextrose (D50w Syringe) 25 ml Q15M PRN IV DECREASED GLUCOSE; Start 11/20/16 at 12:30 Dextrose (D50w Syringe) 50 ml Q15M PRN IV DECREASED GLUCOSE; Start 11/20/16 at 12:30 Glucagon (Glucagen) 1 mg Q15M PRN IM DECREASED GLUCOSE; Start 11/20/16 at 12:30 Glucose (Glutose) 15 gm Q15M PRN BUCCAL DECREASED GLUCOSE Last administered on 12/12/16 08:29; Admin Dose 15 GM; Start 11/20/16 at 12:30 Levothyroxine Sodium (Synthroid) 125 mcg DAILY@06 PO Last administered on 05:54; Admin Dose 125 MCG; Start 11/22/16 at 06:00 Guaifenesin (Robitussin Liquid Cup) 100 mg Q6H PRN PO COUGH Last administered on 11/25/16 21:58; Admin Dose 100 MG; Start 11/23/16 at 16:30 IV Flush (NS 10 ml) 10 ml PRN PRN IV IV PROTOCOL; Start 11/24/16 at 15:30 Insulin Glargine (Lantus) 15 unit HS SC Last administered on 12/14/16 20:47; Admin Dose 15 UNIT; Start 11/26/16 at 21:00 Midodrine 5 mg 5 mg BID@,17 PRN PO sbp<80 Last administered on 12/14/16 02: 36; Admin Dose 5 MG; Start 11/28/16 at 17:00 Albumin Human (Albumin Human 25%) 100 ml @ 100 mls/hr ONCE PRN IV after paracentesis; Start 12/02/16 at 02:00 Morphine Sulfate (morphine) 2 mg Q3H PRN IV PAIN LEVEL 7-10 Last administered on 12/15/16 10:03; Admin Dose 2 MG; Start 12/04/16 at 10:00 Apixaban (Eliquis) 2.5 mg BID PO Last administered on 12/15/16 08:04; Admin Dose 2.5 MG; Start 12/08/16 at 21:00 Acetaminophen (Tylenol Tab) 650 mg Q4H PRN PO PAIN LEVEL 1-3 OR FEVER Last administered on 12/11/16 01:53; Admin Dose 650 MG; Start 12/10/16 at 13:00 Midodrine (Proamatine) 5 mg TID@,,17 PO Last administered on 12/15/16 13: 24; Admin Dose 5 MG; Start 12/12/16 at 17:00 Miscellaneous Information (*Rx Drug Level Order Reminder*) 1 ONCE ONCE XX ; Start 12/16/16 at 05:00; Stop 12/16/16 at 05:01 DICKSON GROSSMAN Dec 15, 2016 14:16
--- NOTE | 2016-12-15 15:12 | CONS ---
Date/Time of Note Date/Time of Note DATE: 12/15/16 TIME: 15:10 Assessment/Plan Assessment/Plan Additional Assessment/Plan Hypotension, intermittent AV fistula stenosis status post venoplasty Acute decompensated systolic and diastolic heart failure Cardiomyopathy, likely ischemic and nonischemic in origin with an ejection fraction less than 20%. (Denied cardiac transplant at [facility]) Biventricular pacemaker and ICD Mitral and tricuspid valve regurgitation. Severe pulmonary hypertension. End-stage renal disease on hemodialysis Ascites status post paracentesis Atrial fibrillation -Patient with possible peritoneal catheter infection. Patient also with 2 orders of midodrine, will adjust to as needed for hypotension. If patient plan for any intervention, okay to hold anticoagulation for the procedure. Fluid management via hemodialysis as per our nephrology colleagues. Consultation Date/Type/Reason Admit Date/Time Nov 20, 2016 at 09:34 Initial Consult Date 11/21/16 Type of Consultation: cv Referring Provider: DEMETRA BRUNO MD 24 HR Interval Summary Free Text/Dictation Patient denies chest pain, has mild shortness of breath but not different than baseline Exam/Review of Systems Vital Signs Vitals Vital Signs Date Time Temp Pulse Resp B/P Pulse Ox O2 Delivery O2 Flow Rate FiO2 12/15/16 12:03 105 12/15/16 11:11 97.9 18 104/55 97 12/13/16 01:58 Room Air Intake and Output 12/14/16 12/14/16 12/15/16 15:00 23:00 07:00 Intake Total 250 ml 550 ml 240 ml Output Total 100 ml Balance 250 ml 450 ml 240 ml Exam No apparent distress Constitutional: alert, frail, oriented Head: normocephalic Neck: supple Respiratory: other (Coarse breath sounds bilaterally with scattered mild crackles) Cardiovascular: other (S1-S2 heard), regular rate and rhythm Gastrointestinal: ascites, bowel sounds, distended, non-tender, soft Extremities: edema Results Result Diagram: 12/15/16 0600 12/15/16 0600 Results 24 hrs Laboratory Tests Test 12/14/16 17:12 12/14/16 20:37 12/15/16 06:00 12/15/16 07:42 Bedside Glucose 92 101 95 Anion Gap 22 H Basophils # 0.0 Basophils % 0.5 Blood Urea Nitrogen 56 H Calcium Level 7.2 L Carbon Dioxide Level 21 Chloride Level 89 L Creatinine 7.13 H Eosinophils # 0.1 Eosinophils % 2.6 Glucose Level 93 Hematocrit 28.9 L Hemoglobin 9.1 L Lymphocytes # 0.9 Lymphocytes % 20.6 Mean Corpuscular Hemoglobin 28.7 L Mean Corpuscular Hemoglobin Concent 31.5 L Mean Corpuscular Volume 91.2 Mean Platelet Volume 9.6 Monocytes # 0.7 Monocytes % 15.2 H Neutrophils # 2.6 Neutrophils % 60.4 Nucleated Red Blood Cells # 0.0 Nucleated Red Blood Cells % 0.0 Platelet Count 81 #L Potassium Level 5.2 H Red Blood Count 3.17 L Red Cell Distribution Width 19.7 H Sodium Level 127 L White Blood Count 4.3 L Test 12/15/16 11:32 Bedside Glucose 123 Medications Medications Current Medications Lorazepam (Ativan) 0.5 mg Q8H PRN PO ANXIETY Last administered on 12/14/16 02: 36; Admin Dose 0.5 MG; Start 11/20/16 at 12:00 Ondansetron HCl (Zofran Inj) 4 mg Q6H PRN IV NAUSEA AND/OR VOMITING Last administered on 11/23/16 05:32; Admin Dose 4 MG; Start 11/20/16 at 12:00 Nitroglycerin (Nitroglycerin (Sl Tab) 0.4 Mg) 1 tab Q5M PRN SL CHEST PAIN; Start 11/20/16 at 12:00 Zolpidem Tartrate (Ambien) 5 mg QHS PRN PO INSOMNIA; Start 11/20/16 at 12:00 Pantoprazole (Protonix Tab) 40 mg DAILY@06 PO Last administered on 12/15/16 05 :54; Admin Dose 40 MG; Start 11/21/16 at 06:00 Miscellaneous Information 1 ea NOTE XX ; Start 11/20/16 at 12:30 Glucose (Glutose) 15 gm Q15M PRN PO DECREASED GLUCOSE; Start 11/20/16 at 12:30 Glucose (Glutose) 22.5 gm Q15M PRN PO DECREASED GLUCOSE; Start 11/20/16 at 12: 30 Dextrose (D50w Syringe) 25 ml Q15M PRN IV DECREASED GLUCOSE; Start 11/20/16 at 12:30 Dextrose (D50w Syringe) 50 ml Q15M PRN IV DECREASED GLUCOSE; Start 11/20/16 at 12:30 Glucagon (Glucagen) 1 mg Q15M PRN IM DECREASED GLUCOSE; Start 11/20/16 at 12:30 Glucose (Glutose) 15 gm Q15M PRN BUCCAL DECREASED GLUCOSE Last administered on 12/12/16 08:29; Admin Dose 15 GM; Start 11/20/16 at 12:30 Levothyroxine Sodium (Synthroid) 125 mcg DAILY@06 PO Last administered on 05:54; Admin Dose 125 MCG; Start 11/22/16 at 06:00 Guaifenesin (Robitussin Liquid Cup) 100 mg Q6H PRN PO COUGH Last administered on 11/25/16 21:58; Admin Dose 100 MG; Start 11/23/16 at 16:30 IV Flush (NS 10 ml) 10 ml PRN PRN IV IV PROTOCOL; Start 11/24/16 at 15:30 Insulin Glargine (Lantus) 15 unit HS SC Last administered on 12/14/16 20:47; Admin Dose 15 UNIT; Start 11/26/16 at 21:00 Midodrine 5 mg 5 mg BID@,17 PRN PO sbp<80 Last administered on 12/14/16 02: 36; Admin Dose 5 MG; Start 11/28/16 at 17:00 Albumin Human (Albumin Human 25%) 100 ml @ 100 mls/hr ONCE PRN IV after paracentesis; Start 12/02/16 at 02:00 Morphine Sulfate (morphine) 2 mg Q3H PRN IV PAIN LEVEL 7-10 Last administered on 12/15/16 10:03; Admin Dose 2 MG; Start 12/04/16 at 10:00 Apixaban (Eliquis) 2.5 mg BID PO Last administered on 12/15/16 08:04; Admin Dose 2.5 MG; Start 12/08/16 at 21:00 Acetaminophen (Tylenol Tab) 650 mg Q4H PRN PO PAIN LEVEL 1-3 OR FEVER Last administered on 12/11/16 01:53; Admin Dose 650 MG; Start 12/10/16 at 13:00 Midodrine (Proamatine) 5 mg TID@,,17 PO Last administered on 12/15/16 13: 24; Admin Dose 5 MG; Start 12/12/16 at 17:00 Miscellaneous Information (*Rx Drug Level Order Reminder*) 1 ONCE ONCE XX ; Start 12/16/16 at 05:00; Stop 12/16/16 at 05:01 Harpreet Cee DO Dec 15, 2016 15:12
[2016-12-15] MEDS ORDERED: LIDOCAINE 1% (MDV) 20 ML INJ ONE (17:17)
--- NOTE | 2016-12-15 18:26 | RADRPT ---
PROCEDURE: Fluoroscopic guided catheter removal. CLINICAL INDICATION: The drainage catheter in the peritoneal space may be infected. TECHNIQUE: Prior to the procedure, informed consent was obtained. Risks including bleeding and inf ection, were explained to the patient. The patient understood and was willing to proceed. A procedur al pause was performed. The patient's name, date of , and procedure to be performed were [facility] at [place] [facility]. The skin sutures were removed. The existing drainage catheter in the peritoneal space was removed w ith fluoroscopic guidance. Images were obtained before and after removal of the catheter. A total of 0.1 minutes of fluoroscopy time was used. COMPARISON: Catheter placement on 12/06/2016. FINDINGS: The postprocedure image demonstrates complete removal of the catheter. IMPRESSION: 1. Fluoroscopic guided removal of peritoneal drainage catheter. RPTAT: QQ .Neo Jerome MD, Date Time Electronically viewed and signed by .Neo Jerome MD, on 12/15/2016 18:26 .R/
--- NOTE | 2016-12-15 18:31 | CONS ---
Date/Time of Note Date/Time of Note DATE: 12/15/16 TIME: 18:31 Assessment/Plan Assessment/Plan Additional Assessment/Plan Additional Assessment/Plan ASSESSMENT: 1. Refractory ascites. 2. Ischemic cardiomyopathy. 3. End-stage renal disease. 4. Cirrhosis of liver. 5.s/p pleurex drain for ascites,3 liters removed today 6.leaking around Pleurex 7. left hip pain 8. SBP Plan drain ascitic fluid PRN PT antibiotic as per ID d/c drainage catheter,done Consultation Date/Type/Reason Admit Date/Time Nov 20, 2016 at 09:34 Initial Consult Date 11/21/16 Type of Consultation: cv Referring Provider: DEMETRA BRUNO MD 24 HR Interval Summary Constitutional: no complaints Exam/Review of Systems Vital Signs Vitals Vital Signs Date Time Temp Pulse Resp B/P Pulse Ox O2 Delivery O2 Flow Rate FiO2 12/15/16 17:52 90 12/15/16 15:24 98.2 18 95/55 97 12/13/16 01:58 Room Air Intake and Output 12/14/16 12/14/16 12/15/16 15:00 23:00 07:00 Intake Total 250 ml 550 ml 240 ml Output Total 100 ml Balance 250 ml 450 ml 240 ml Exam Constitutional: alert, oriented, well developed ENMT: nl external ears & nose, nl lips & teeth, nl nasal mucosa & septum Neck: non-tender, supple Respiratory: clear to auscultation, normal air movement Cardiovascular: nl pulses, regular rate and rhythm Gastrointestinal: ascites, distended Results Result Diagram: 12/15/16 0600 12/15/16 0600 Results 24 hrs Laboratory Tests Test 12/14/16 20:37 12/15/16 06:00 12/15/16 07:42 12/15/16 11:32 Bedside Glucose 101 95 123 Anion Gap 22 H Basophils # 0.0 Basophils % 0.5 Blood Urea Nitrogen 56 H Calcium Level 7.2 L Carbon Dioxide Level 21 Chloride Level 89 L Creatinine 7.13 H Eosinophils # 0.1 Eosinophils % 2.6 Glucose Level 93 Hematocrit 28.9 L Hemoglobin 9.1 L Lymphocytes # 0.9 Lymphocytes % 20.6 Mean Corpuscular Hemoglobin 28.7 L Mean Corpuscular Hemoglobin Concent 31.5 L Mean Corpuscular Volume 91.2 Mean Platelet Volume 9.6 Monocytes # 0.7 Monocytes % 15.2 H Neutrophils # 2.6 Neutrophils % 60.4 Nucleated Red Blood Cells # 0.0 Nucleated Red Blood Cells % 0.0 Platelet Count 81 #L Potassium Level 5.2 H Red Blood Count 3.17 L Red Cell Distribution Width 19.7 H Sodium Level 127 L White Blood Count 4.3 L Test 12/15/16 16:46 Bedside Glucose 120 Medications Medications Current Medications Lorazepam (Ativan) 0.5 mg Q8H PRN PO ANXIETY Last administered on 12/14/16 02: 36; Admin Dose 0.5 MG; Start 11/20/16 at 12:00 Ondansetron HCl (Zofran Inj) 4 mg Q6H PRN IV NAUSEA AND/OR VOMITING Last administered on 11/23/16 05:32; Admin Dose 4 MG; Start 11/20/16 at 12:00 Nitroglycerin (Nitroglycerin (Sl Tab) 0.4 Mg) 1 tab Q5M PRN SL CHEST PAIN; Start 11/20/16 at 12:00 Zolpidem Tartrate (Ambien) 5 mg QHS PRN PO INSOMNIA; Start 11/20/16 at 12:00 Pantoprazole (Protonix Tab) 40 mg DAILY@06 PO Last administered on 12/15/16 05 :54; Admin Dose 40 MG; Start 11/21/16 at 06:00 Miscellaneous Information 1 ea NOTE XX ; Start 11/20/16 at 12:30 Glucose (Glutose) 15 gm Q15M PRN PO DECREASED GLUCOSE; Start 11/20/16 at 12:30 Glucose (Glutose) 22.5 gm Q15M PRN PO DECREASED GLUCOSE; Start 11/20/16 at 12: 30 Dextrose (D50w Syringe) 25 ml Q15M PRN IV DECREASED GLUCOSE; Start 11/20/16 at 12:30 Dextrose (D50w Syringe) 50 ml Q15M PRN IV DECREASED GLUCOSE; Start 11/20/16 at 12:30 Glucagon (Glucagen) 1 mg Q15M PRN IM DECREASED GLUCOSE; Start 11/20/16 at 12:30 Glucose (Glutose) 15 gm Q15M PRN BUCCAL DECREASED GLUCOSE Last administered on 12/12/16 08:29; Admin Dose 15 GM; Start 11/20/16 at 12:30 Levothyroxine Sodium (Synthroid) 125 mcg DAILY@06 PO Last administered on 05:54; Admin Dose 125 MCG; Start 11/22/16 at 06:00 Guaifenesin (Robitussin Liquid Cup) 100 mg Q6H PRN PO COUGH Last administered on 11/25/16 21:58; Admin Dose 100 MG; Start 11/23/16 at 16:30 IV Flush (NS 10 ml) 10 ml PRN PRN IV IV PROTOCOL; Start 11/24/16 at 15:30 Insulin Glargine 15 unit 15 unit HS SC Last administered on 12/14/16 20:47; Admin Dose 15 UNIT; Start 11/26/16 at 21:00 Albumin Human (Albumin Human 25%) 100 ml @ 100 mls/hr ONCE PRN IV after paracentesis; Start 12/02/16 at 02:00 Morphine Sulfate (morphine) 2 mg Q3H PRN IV PAIN LEVEL 7-10 Last administered on 12/15/16 18:18; Admin Dose 2 MG; Start 12/04/16 at 10:00 Apixaban (Eliquis) 2.5 mg BID PO Last administered on 12/15/16 08:04; Admin Dose 2.5 MG; Start 12/08/16 at 21:00 Acetaminophen (Tylenol Tab) 650 mg Q4H PRN PO PAIN LEVEL 1-3 OR FEVER Last administered on 12/11/16 01:53; Admin Dose 650 MG; Start 12/10/16 at 13:00 Miscellaneous Information (*Rx Drug Level Order Reminder*) 1 ONCE ONCE XX ; Start 12/16/16 at 05:00; Stop 12/16/16 at 05:01 Midodrine (Proamatine) 5 mg TID PRN PO sbp<80; Start 12/15/16 at 21:00 LOR MASON MD Dec 15, 2016 18:31
[2016-12-15] MEDS ORDERED: MIDODRINE 5 MG TAB PO PRN (21:00)
[2016-12-15] MEDS: INSULIN GLARGINE [LANtus] 3 ML PEN SC SCH (21:06)
--- NOTE | 2016-12-15 21:43 | CONS ---
Date/Time of Note Date/Time of Note DATE: 12/15/16 TIME: 21:36 Assessment/Plan Assessment/Plan Chief Complaint/Hosp Course Next HD in AM Problems: Additional Assessment/Plan PD Fluid coag neg is contaminant, no Rx required Cont'd Hospitalization Reason: Will continue HD per schedule Consultation Date/Type/Reason Admit Date/Time Nov 20, 2016 at 09:34 Initial Consult Date 11/21/16 Type of Consultation: renal Referring Provider: DEMETRA BRUNO MD 24 HR Interval Summary Free Text/Dictation c/o leaking around the abd cath Exam/Review of Systems Vital Signs Vitals Vital Signs Date Time Temp Pulse Resp B/P Pulse Ox O2 Delivery O2 Flow Rate FiO2 12/15/16 20:18 93 12/15/16 18:54 97.7 16 86/51 95 12/13/16 01:58 Room Air Intake and Output 12/14/16 12/14/16 12/15/16 15:00 23:00 07:00 Intake Total 250 ml 550 ml 240 ml Output Total 100 ml Balance 250 ml 450 ml 240 ml Exam Constitutional: alert, oriented, well developed Psych: nl mood/affect, no complaints Head: atraumatic, normocephalic Eyes: EOMI, PERRL, nl conjunctiva, nl lids, nl sclera ENMT: nl external ears & nose, nl lips & teeth, nl nasal mucosa & septum Neck: non-tender, supple Respiratory: clear to auscultation, normal air movement Cardiovascular: nl pulses, regular rate and rhythm Gastrointestinal: ascites, nl liver, spleen, non-tender, soft Musculoskeletal: nl extremities to inspection, nl gait and stance, other (AVF lt arm) Extremities: normal pulses 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: CHIEF OF PEDIATRIC UROLOGY 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, nl mental status, nl speech, nl strength Skin: nl turgor, No rash or lesions Lymph: nl lymph nodes Results Result Diagram: 12/15/16 0600 12/15/16 0600 Results 24 hrs Laboratory Tests Test 12/15/16 06:00 12/15/16 07:42 12/15/16 11:32 12/15/16 16:46 Anion Gap 22 H Basophils # 0.0 Basophils % 0.5 Blood Urea Nitrogen 56 H Calcium Level 7.2 L Carbon Dioxide Level 21 Chloride Level 89 L Creatinine 7.13 H Eosinophils # 0.1 Eosinophils % 2.6 Glucose Level 93 Hematocrit 28.9 L Hemoglobin 9.1 L Lymphocytes # 0.9 Lymphocytes % 20.6 Mean Corpuscular Hemoglobin 28.7 L Mean Corpuscular Hemoglobin Concent 31.5 L Mean Corpuscular Volume 91.2 Mean Platelet Volume 9.6 Monocytes # 0.7 Monocytes % 15.2 H Neutrophils # 2.6 Neutrophils % 60.4 Nucleated Red Blood Cells # 0.0 Nucleated Red Blood Cells % 0.0 Platelet Count 81 #L Potassium Level 5.2 H Red Blood Count 3.17 L Red Cell Distribution Width 19.7 H Sodium Level 127 L White Blood Count 4.3 L Bedside Glucose 95 123 120 Medications Medications Current Medications Lorazepam (Ativan) 0.5 mg Q8H PRN PO ANXIETY Last administered on 12/14/16 02: 36; Admin Dose 0.5 MG; Start 11/20/16 at 12:00 Ondansetron HCl (Zofran Inj) 4 mg Q6H PRN IV NAUSEA AND/OR VOMITING Last administered on 11/23/16 05:32; Admin Dose 4 MG; Start 11/20/16 at 12:00 Nitroglycerin (Nitroglycerin (Sl Tab) 0.4 Mg) 1 tab Q5M PRN SL CHEST PAIN; Start 11/20/16 at 12:00 Zolpidem Tartrate (Ambien) 5 mg QHS PRN PO INSOMNIA; Start 11/20/16 at 12:00 Pantoprazole (Protonix Tab) 40 mg DAILY@06 PO Last administered on 12/15/16 05 :54; Admin Dose 40 MG; Start 11/21/16 at 06:00 Miscellaneous Information 1 ea NOTE XX ; Start 11/20/16 at 12:30 Glucose (Glutose) 15 gm Q15M PRN PO DECREASED GLUCOSE; Start 11/20/16 at 12:30 Glucose (Glutose) 22.5 gm Q15M PRN PO DECREASED GLUCOSE; Start 11/20/16 at 12: 30 Dextrose (D50w Syringe) 25 ml Q15M PRN IV DECREASED GLUCOSE; Start 11/20/16 at 12:30 Dextrose (D50w Syringe) 50 ml Q15M PRN IV DECREASED GLUCOSE; Start 11/20/16 at 12:30 Glucagon (Glucagen) 1 mg Q15M PRN IM DECREASED GLUCOSE; Start 11/20/16 at 12:30 Glucose (Glutose) 15 gm Q15M PRN BUCCAL DECREASED GLUCOSE Last administered on 12/12/16 08:29; Admin Dose 15 GM; Start 11/20/16 at 12:30 Levothyroxine Sodium (Synthroid) 125 mcg DAILY@06 PO Last administered on 05:54; Admin Dose 125 MCG; Start 11/22/16 at 06:00 Guaifenesin (Robitussin Liquid Cup) 100 mg Q6H PRN PO COUGH Last administered on 11/25/16 21:58; Admin Dose 100 MG; Start 11/23/16 at 16:30 IV Flush (NS 10 ml) 10 ml PRN PRN IV IV PROTOCOL; Start 11/24/16 at 15:30 Insulin Glargine 15 unit 15 unit HS SC Last administered on 12/15/16 21:06; Admin Dose 15 UNIT; Start 11/26/16 at 21:00 Albumin Human (Albumin Human 25%) 100 ml @ 100 mls/hr ONCE PRN IV after paracentesis; Start 12/02/16 at 02:00 Morphine Sulfate (morphine) 2 mg Q3H PRN IV PAIN LEVEL 7-10 Last administered on 12/15/16 18:18; Admin Dose 2 MG; Start 12/04/16 at 10:00 Apixaban (Eliquis) 2.5 mg BID PO Last administered on 12/15/16 21:02; Admin Dose 2.5 MG; Start 12/08/16 at 21:00 Acetaminophen (Tylenol Tab) 650 mg Q4H PRN PO PAIN LEVEL 1-3 OR FEVER Last administered on 12/11/16 01:53; Admin Dose 650 MG; Start 12/10/16 at 13:00 Miscellaneous Information (*Rx Drug Level Order Reminder*) 1 ONCE ONCE XX ; Start 12/16/16 at 05:00; Stop 12/16/16 at 05:01 Midodrine (Proamatine) 5 mg TID PRN PO sbp<80; Start 12/15/16 at 21:00 MILADY ANDERSON MD Dec 15, 2016 21:43
[2016-12-16] VITALS (11 sets, daily range): BP systolic 86–92; BP diastolic 49–59; PULSE 87–104; RESP 16–18
[2016-12-16] MEDS: morphine 2 MG INJ IV PRN ×7 (01:25→22:34)
[2016-12-16] MEDS: PANTOPRAZOLE (EC) 40 MG TAB PO SCH (05:56)
[2016-12-16] MEDS: LEVOTHYROXINE 125 MCG TAB PO SCH (05:57)
[2016-12-16 07:11] LABS: ADD SCAN DIFF NO
[2016-12-16 07:21] LABS: ABNORMAL IP MESSAGE 1; BASOPHILS % 0.3 % (0.0-2.0); EOSINOPHILS # 0.1 10^3/ul (0.0-0.5); EOSINOPHILS % 1.6 % (0.0-7.0); HEMATOCRIT 28.8 % (42.0-52.0); LYMPHOCYTES # 0.8 10^3/ul (0.8-2.9); MEAN CORPUSCULAR HEMOGLOBIN 28.5 pg (29.0-33.0); MEAN CORPUSCULAR HGB CONC 31.3 g/dl (32.0-37.0); MEAN CORPUSCULAR VOLUME 91.1 fl (82.0-101.0); MONOCYTE # 0.7 10^3/ul (0.3-0.9); MONOCYTES % 17.2 % (0.0-11.0); NEUTROPHIL # 2.2 10^3/ul (1.6-7.5); NEUTROPHILS % 58.1 % (39.0-77.0); RED BLOOD COUNT 3.16 10^6/ul (4.70-6.10); RED CELL DISTRIBUTION WIDTH 19.5 % (11.5-14.5); WHITE BLOOD COUNT 3.8 10^3/ul (4.8-10.8)
[2016-12-16 07:37] LABS: POTASSIUM 3.9 mmol/L (3.5-5.1)
[2016-12-16 07:39] LABS: CREATININE 4.92 mg/dl (0.61-1.24)
[2016-12-16 07:40] LABS: CALCIUM 7.1 mg/dl (8.4-10.2)
[2016-12-16] MEDS: INSULIN ASPART [NOVOLOG] 3 ML PEN SC SCH ×4 (07:55→21:00)
[2016-12-16] MEDS: APIXABAN 5 MG TABLET PO SCH ×2 (08:26→21:00)
--- NOTE | 2016-12-16 08:39 | CONS ---
Date/Time of Note Date/Time of Note DATE: 12/16/16 TIME: 08:36 Assessment/Plan Assessment/Plan Chief Complaint/Hosp Course ID PROGRESS NOTE CURRENT ABX=> Vanco IV #3 s/pCeftriaxone 24H INTERVAL SUMMARY * Napping -- awakens to verbal stimuli, no c/o, Afebrile, VSS, NAD * (+)SBP due to infected PD catheter = catheter removed per Dr. Juarez Loyd: 12/11/16 Rcvd: 12/11/16 Source: PERITONEAL Sp Descrip: Microbiology GRAM STAIN Final POLYMORPH. LEUKOCYTE 1+ GRAM POS COCCI IN PAIRS 1+ BODY FLUID CULTURE Final Organism 1 COAGULASE NEGATIVE STAPH#2 QUANTITY 4+ Organism 2 COAGULASE NEGATIVE STAPH QUANTITY 4+ COAG NEG#2 COAG NEG M.I.C. RX M.I.C. RX --------- --- --------- --- CEFAZOLIN R R CIPROFLOXACIN >=8 R <=0.5 S CLINDAMYCIN <=0.25 S >=8 R DOXYCYCLINE S S ERYTHROMYCIN <=0.25 S >=8 R LEVOFLOXACIN >=8 R <=0.12 S OXACILLIN 1 R >=4 R PENICILLIN-G >=0.5 R >=0.5 R RIFAMPIN <=0.5 S <=0.5 S VANCOMYCIN <=0.5 S 1 S TRIMETHOPRIM/SULFAMETHOXAZOLE <=10 S <=10 S PHYSICAL EXAMINATION: GENERAL: VSS, NAD HEENT: Unremarkable NECK: Supple, trachea midline. CHEST: Rise symmetrical, without dyspnea on observation HEART: Pulse RRR ABDOMEN: Soft, benign EXTREMITIES: Warm ID ASSESSMENT 66 yo M w/multi-organ failure admit with: 1. s/p Sepsis w/hypotension due to peritonitis, infected catheter =. 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 Refractory ascites => s/p pleurex drain for ascites, leaking around Pleurex= > Drain removed 3. Cirrhosis w/portal Hypertension + Ascites status post paracentesis 4. CV: Chronic decompensated systolic and diastolic heart failure * Cardiomyopathy, likely ischemic and nonischemic in origin with an ejection fraction less than 20%. * CAD w/Hx of remote CABG * Biventricular pacemaker and ICD * Mitral and tricuspid valve regurgitation. * Severe pulmonary hypertension. 5. End-stage renal disease on hemodialysis 6. AV fistula stenosis status post venoplasty 7. Left hip pain (-)MRSA Nares INVASIVES: PIV, ABX ALLERGY: KNDA CURRENT ABX: =>Vanco IV #3 s/p ID RECOMMENDATIONS 1. Continue Vanco IV x 7 days = today Day #3 / 7 * Catheter has been removed due to OPPORTUNISTIC (+)CoNS infx -> Notorious for sticky biofilm production on invasive devices 2. PRN paracentesis for ascites, may consider replacement drainage catheter after completed course of Vanco IV . . Problems: Consultation Date/Type/Reason Admit Date/Time Nov 20, 2016 at 09:34 Initial Consult Date 11/21/16 Type of Consultation: ID Referring Provider: DEMETRA BRUNO MD Exam/Review of Systems Vital Signs Vitals Vital Signs Date Time Temp Pulse Resp B/P Pulse Ox O2 Delivery O2 Flow Rate FiO2 12/16/16 07:16 97.6 72 17 86/57 92 12/13/16 01:58 Room Air Intake and Output 12/15/16 12/15/16 12/16/16 15:00 23:00 07:00 Intake Total 500 ml 620 ml 280 ml Output Total 3500 ml 600 ml Balance -3000 ml 620 ml -320 ml Results Result Diagram: 12/16/16 0600 12/16/16 0600 Results 24 hrs Laboratory Tests Test 12/15/16 11:32 12/15/16 16:46 12/15/16 21:01 12/16/16 06:00 Bedside Glucose 123 120 152 Anion Gap 17 H Basophils # 0.0 Basophils % 0.3 Blood Urea Nitrogen 32 #H Calcium Level 7.1 L Carbon Dioxide Level 25 Chloride Level 93 L Creatinine 4.92 #H Eosinophils # 0.1 Eosinophils % 1.6 Glucose Level 100 Hematocrit 28.8 L Hemoglobin 9.0 L Lymphocytes # 0.8 Lymphocytes % 22.0 Mean Corpuscular Hemoglobin 28.5 L Mean Corpuscular Hemoglobin Concent 31.3 L Mean Corpuscular Volume 91.1 Mean Platelet Volume 11.0 H Monocytes # 0.7 Monocytes % 17.2 H Neutrophils # 2.2 Neutrophils % 58.1 Nucleated Red Blood Cells # 0.0 Nucleated Red Blood Cells % 0.0 Platelet Count Pending Potassium Level 3.9 Random Vancomycin Level 12.2 Red Blood Count 3.16 L Red Cell Distribution Width 19.5 H Sodium Level 131 L White Blood Count 3.8 L Test 12/16/16 07:51 Bedside Glucose 101 Medications Medications Current Medications Lorazepam (Ativan) 0.5 mg Q8H PRN PO ANXIETY Last administered on 12/14/16 02: 36; Admin Dose 0.5 MG; Start 11/20/16 at 12:00 Ondansetron HCl (Zofran Inj) 4 mg Q6H PRN IV NAUSEA AND/OR VOMITING Last administered on 11/23/16 05:32; Admin Dose 4 MG; Start 11/20/16 at 12:00 Nitroglycerin (Nitroglycerin (Sl Tab) 0.4 Mg) 1 tab Q5M PRN SL CHEST PAIN; Start 11/20/16 at 12:00 Zolpidem Tartrate (Ambien) 5 mg QHS PRN PO INSOMNIA; Start 11/20/16 at 12:00 Pantoprazole (Protonix Tab) 40 mg DAILY@06 PO Last administered on 12/16/16 05 :56; Admin Dose 40 MG; Start 11/21/16 at 06:00 Miscellaneous Information 1 ea NOTE XX ; Start 11/20/16 at 12:30 Glucose (Glutose) 15 gm Q15M PRN PO DECREASED GLUCOSE; Start 11/20/16 at 12:30 Glucose (Glutose) 22.5 gm Q15M PRN PO DECREASED GLUCOSE; Start 11/20/16 at 12: 30 Dextrose (D50w Syringe) 25 ml Q15M PRN IV DECREASED GLUCOSE; Start 11/20/16 at 12:30 Dextrose (D50w Syringe) 50 ml Q15M PRN IV DECREASED GLUCOSE; Start 11/20/16 at 12:30 Glucagon (Glucagen) 1 mg Q15M PRN IM DECREASED GLUCOSE; Start 11/20/16 at 12:30 Glucose (Glutose) 15 gm Q15M PRN BUCCAL DECREASED GLUCOSE Last administered on 12/12/16 08:29; Admin Dose 15 GM; Start 11/20/16 at 12:30 Levothyroxine Sodium (Synthroid) 125 mcg DAILY@06 PO Last administered on 05:57; Admin Dose 125 MCG; Start 11/22/16 at 06:00 Guaifenesin (Robitussin Liquid Cup) 100 mg Q6H PRN PO COUGH Last administered on 11/25/16 21:58; Admin Dose 100 MG; Start 11/23/16 at 16:30 IV Flush (NS 10 ml) 10 ml PRN PRN IV IV PROTOCOL; Start 11/24/16 at 15:30 Insulin Glargine 15 unit 15 unit HS SC Last administered on 12/15/16 21:06; Admin Dose 15 UNIT; Start 11/26/16 at 21:00 Albumin Human (Albumin Human 25%) 100 ml @ 100 mls/hr ONCE PRN IV after paracentesis; Start 12/02/16 at 02:00 Morphine Sulfate (morphine) 2 mg Q3H PRN IV PAIN LEVEL 7-10 Last administered on 12/16/16 08:27; Admin Dose 2 MG; Start 12/04/16 at 10:00 Apixaban (Eliquis) 2.5 mg BID PO Last administered on 12/16/16 08:26; Admin Dose 2.5 MG; Start 12/08/16 at 21:00 Acetaminophen (Tylenol Tab) 650 mg Q4H PRN PO PAIN LEVEL 1-3 OR FEVER Last administered on 12/11/16 01:53; Admin Dose 650 MG; Start 12/10/16 at 13:00 Midodrine 5 mg 5 mg TID PRN PO sbp<80; Start 12/15/16 at 21:00 Vancomycin HCl/ Sodium Chloride (Vancocin/NS) 250 ml @ 83.333 mls/ hr 10 IVPB ; Start 12/16/16 at 10:00; Stop 12/16/16 at 19:00 JOVON CALERO NP Dec 16, 2016 08:39
--- NOTE | 2016-12-16 08:46 | CONS ---
Date/Time of Note Date/Time of Note DATE: 12/16/16 TIME: 08:44 Assessment/Plan Assessment/Plan Chief Complaint/Hosp Course Severe hypotension requiring IV pressor, improved AV fistula stenosis status post venoplasty Chronic decompensated systolic and diastolic heart failure Cardiomyopathy, likely ischemic and nonischemic in origin with an ejection fraction less than 20%. (Denied cardiac transplant at [facility]) Biventricular pacemaker and ICD Mitral and tricuspid valve regurgitation. Severe pulmonary hypertension. End-stage renal disease on hemodialysis Ascites status post paracentesis Problems: Additional Assessment/Plan 1) continue current meds given compensated 2) off beta jyoti and ANDRA given hypotension Consultation Date/Type/Reason Admit Date/Time Nov 20, 2016 at 09:34 Initial Consult Date 11/21/16 Type of Consultation: cv Referring Provider: DEMETRA BRUNO MD 24 HR Interval Summary Free Text/Dictation no chest pain, no sob,no palpitations Detailed Summary ENT: no complaints Respiratory: no complaints Cardiovascular: no complaints Gastrointestinal: no complaints Skin: no complaints Neurologic: no complaints Exam/Review of Systems Vital Signs Vitals Vital Signs Date Time Temp Pulse Resp B/P Pulse Ox O2 Delivery O2 Flow Rate FiO2 12/16/16 07:16 97.6 72 17 86/57 92 12/13/16 01:58 Room Air Intake and Output 12/15/16 12/15/16 12/16/16 15:00 23:00 07:00 Intake Total 500 ml 620 ml 280 ml Output Total 3500 ml 600 ml Balance -3000 ml 620 ml -320 ml Exam Constitutional: alert, oriented Head: atraumatic, normocephalic Neck: supple Respiratory: clear to auscultation Cardiovascular: regular rate and rhythm Gastrointestinal: soft Musculoskeletal: nl extremities to inspection Results Result Diagram: 12/16/16 0600 12/16/16 0600 Results 24 hrs Laboratory Tests Test 12/15/16 11:32 12/15/16 16:46 12/15/16 21:01 12/16/16 06:00 Bedside Glucose 123 120 152 Anion Gap 17 H Basophils # 0.0 Basophils % 0.3 Blood Urea Nitrogen 32 #H Calcium Level 7.1 L Carbon Dioxide Level 25 Chloride Level 93 L Creatinine 4.92 #H Eosinophils # 0.1 Eosinophils % 1.6 Glucose Level 100 Hematocrit 28.8 L Hemoglobin 9.0 L Lymphocytes # 0.8 Lymphocytes % 22.0 Mean Corpuscular Hemoglobin 28.5 L Mean Corpuscular Hemoglobin Concent 31.3 L Mean Corpuscular Volume 91.1 Mean Platelet Volume 11.0 H Monocytes # 0.7 Monocytes % 17.2 H Neutrophils # 2.2 Neutrophils % 58.1 Nucleated Red Blood Cells # 0.0 Nucleated Red Blood Cells % 0.0 Platelet Count Pending Potassium Level 3.9 Random Vancomycin Level 12.2 Red Blood Count 3.16 L Red Cell Distribution Width 19.5 H Sodium Level 131 L White Blood Count 3.8 L Test 12/16/16 07:51 Bedside Glucose 101 Medications Medications Current Medications Lorazepam (Ativan) 0.5 mg Q8H PRN PO ANXIETY Last administered on 12/14/16 02: 36; Admin Dose 0.5 MG; Start 11/20/16 at 12:00 Ondansetron HCl (Zofran Inj) 4 mg Q6H PRN IV NAUSEA AND/OR VOMITING Last administered on 11/23/16 05:32; Admin Dose 4 MG; Start 11/20/16 at 12:00 Nitroglycerin (Nitroglycerin (Sl Tab) 0.4 Mg) 1 tab Q5M PRN SL CHEST PAIN; Start 11/20/16 at 12:00 Zolpidem Tartrate (Ambien) 5 mg QHS PRN PO INSOMNIA; Start 11/20/16 at 12:00 Pantoprazole (Protonix Tab) 40 mg DAILY@06 PO Last administered on 12/16/16 05 :56; Admin Dose 40 MG; Start 11/21/16 at 06:00 Miscellaneous Information 1 ea NOTE XX ; Start 11/20/16 at 12:30 Glucose (Glutose) 15 gm Q15M PRN PO DECREASED GLUCOSE; Start 11/20/16 at 12:30 Glucose (Glutose) 22.5 gm Q15M PRN PO DECREASED GLUCOSE; Start 11/20/16 at 12: 30 Dextrose (D50w Syringe) 25 ml Q15M PRN IV DECREASED GLUCOSE; Start 11/20/16 at 12:30 Dextrose (D50w Syringe) 50 ml Q15M PRN IV DECREASED GLUCOSE; Start 11/20/16 at 12:30 Glucagon (Glucagen) 1 mg Q15M PRN IM DECREASED GLUCOSE; Start 11/20/16 at 12:30 Glucose (Glutose) 15 gm Q15M PRN BUCCAL DECREASED GLUCOSE Last administered on 12/12/16 08:29; Admin Dose 15 GM; Start 11/20/16 at 12:30 Levothyroxine Sodium (Synthroid) 125 mcg DAILY@06 PO Last administered on 05:57; Admin Dose 125 MCG; Start 11/22/16 at 06:00 Guaifenesin (Robitussin Liquid Cup) 100 mg Q6H PRN PO COUGH Last administered on 11/25/16 21:58; Admin Dose 100 MG; Start 11/23/16 at 16:30 IV Flush (NS 10 ml) 10 ml PRN PRN IV IV PROTOCOL; Start 11/24/16 at 15:30 Insulin Glargine 15 unit 15 unit HS SC Last administered on 12/15/16 21:06; Admin Dose 15 UNIT; Start 11/26/16 at 21:00 Albumin Human (Albumin Human 25%) 100 ml @ 100 mls/hr ONCE PRN IV after paracentesis; Start 12/02/16 at 02:00 Morphine Sulfate (morphine) 2 mg Q3H PRN IV PAIN LEVEL 7-10 Last administered on 12/16/16 08:27; Admin Dose 2 MG; Start 12/04/16 at 10:00 Apixaban (Eliquis) 2.5 mg BID PO Last administered on 12/16/16 08:26; Admin Dose 2.5 MG; Start 12/08/16 at 21:00 Acetaminophen (Tylenol Tab) 650 mg Q4H PRN PO PAIN LEVEL 1-3 OR FEVER Last administered on 12/11/16 01:53; Admin Dose 650 MG; Start 12/10/16 at 13:00 Midodrine 5 mg 5 mg TID PRN PO sbp<80; Start 12/15/16 at 21:00 Vancomycin HCl/ Sodium Chloride (Vancocin/NS) 250 ml @ 83.333 mls/ hr 10 IVPB ; Start 12/16/16 at 10:00; Stop 12/16/16 at 19:00 CAPRI SALAZAR MD Dec 16, 2016 08:46
[2016-12-16] MEDS ORDERED: VANCOMYCIN 1.25 GM in SOD CHLORIDE 0.9% 250 ML IVPB SCH (10:00)
[2016-12-16 10:34] LABS: ANISOCYTOSIS 1+; PLATELET ESTIMATE PLT APPEAR DECREASED; POLYCHROMASIA 1+
[2016-12-16 10:35] LABS: PLATELET COUNT 40 10^3/UL (140-415)
[2016-12-16] MEDS: GUAIFENESIN 20 MG/ML 5ML CUP PO PRN (11:44)
--- NOTE | 2016-12-16 14:08 | PN ---
Date/Time of Note Date/Time of Note DATE: 12/16/16 TIME: 13:52 Assessment/Plan VTE Prophylaxis VTE Prophylaxis Intervention: other Lines/Catheters IV [facility] PICC Line Central line still needed: Yes Urinary Cath still in place: No Assessment/Plan Assessment/Plan - Peritonitis, DC peritoneal catheter - continue antibiotics per ID. - Status post mechanical fall. - Brain CT is negative, hip x-ray is negative for fracture. - Severe hypotension requiring pressors, resolved. - Congestive heart failure exacerbation with ejection fraction of 20% per last echo. Continue to remove fluids with hemodialysis. - Ascites, status post paracentesis on11/20, 12/02. S/p tunneled peritoneal drainage catheter placement 12/06. - End-stage renal disease, hemodialysis-dependent. - per Dr. Maddox from nephrology standpoint. Continue patient on hemodialysis. - Coronary artery disease status post coronary artery bypass graft. Continue patient on aspirin and Coreg. - per Dr. Cee from cardiology standpoint. - Hypothyroidism. TSH is 14, Synthroid increased to 125. - Diabetes mellitus type 2. Continue to monitor blood sugar with mild algorithm scale, NovoLog coverage. - Hemodialysis access, status post right AV fistulogram by Dr. Loco, vascular surgery on 11/21. - Liver cirrhosis and portal hypertension. - per Dr. Kirkpatrick in gastroenterology consultation. Continue Protonix for peptic ulcer disease prophylaxis. Further recommendations based on clinical course. Plan of care discussed with Dr. Vick. Subjective 24 Hr Interval Summary Eyes: no complaints ENT: no complaints Respiratory: no complaints Cardiovascular: no complaints Gastrointestinal: other (L), pain Genitourinary: no complaints Musculoskeletal: no complaints Skin: no complaints Neurologic: no complaints Endocrine: no complaints Lymphatic: no complaints Psychological: nl mood/affect Immunologic: no complaints Exam/Review of Systems Vital Signs Vitals Vital Signs Date Time Temp Pulse Resp B/P Pulse Ox O2 Delivery O2 Flow Rate FiO2 12/16/16 12:03 104 12/16/16 11:12 97.7 17 92/59 93 12/13/16 01:58 Room Air Intake and Output 12/15/16 12/15/16 12/16/16 15:00 23:00 07:00 Intake Total 500 ml 620 ml 280 ml Output Total 3500 ml 600 ml Balance -3000 ml 620 ml -320 ml Exam Constitutional: alert, oriented Psych: nl mood/affect Eyes: EOMI ENMT: nl external ears & nose Neck: non-tender Respiratory: clear to auscultation Cardiovascular: nl pulses Gastrointestinal: distended, other (left abdomr), soft Musculoskeletal: nl extremities to inspection Extremities: normal pulses 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: nl mental status, nl speech Results Result Diagram: 12/16/16 0600 12/16/16 0600 Results 24 hrs Laboratory Tests Test 12/15/16 16:46 12/15/16 21:01 12/16/16 06:00 12/16/16 07:51 Bedside Glucose 120 152 101 Anion Gap 17 H Anisocytosis 1+ Basophils # 0.0 Basophils % 0.3 Blood Urea Nitrogen 32 #H Calcium Level 7.1 L Carbon Dioxide Level 25 Chloride Level 93 L Creatinine 4.92 #H Eosinophils # 0.1 Eosinophils % 1.6 Glucose Level 100 Hematocrit 28.8 L Hemoglobin 9.0 L Lymphocytes # 0.8 Lymphocytes % 22.0 Mean Corpuscular Hemoglobin 28.5 L Mean Corpuscular Hemoglobin Concent 31.3 L Mean Corpuscular Volume 91.1 Mean Platelet Volume 11.0 H Monocytes # 0.7 Monocytes % 17.2 H Neutrophils # 2.2 Neutrophils % 58.1 Nucleated Red Blood Cells # 0.0 Nucleated Red Blood Cells % 0.0 Platelet Count 40 #L Platelet Estimate PLT APPEAR DECREASED Polychromasia 1+ Potassium Level 3.9 Random Vancomycin Level 12.2 Red Blood Count 3.16 L Red Cell Distribution Width 19.5 H Sodium Level 131 L White Blood Count 3.8 L Test 12/16/16 11:53 Bedside Glucose 121 Medications Medications Current Medications Lorazepam (Ativan) 0.5 mg Q8H PRN PO ANXIETY Last administered on 12/14/16 02: 36; Admin Dose 0.5 MG; Start 11/20/16 at 12:00 Ondansetron HCl (Zofran Inj) 4 mg Q6H PRN IV NAUSEA AND/OR VOMITING Last administered on 11/23/16 05:32; Admin Dose 4 MG; Start 11/20/16 at 12:00 Nitroglycerin (Nitroglycerin (Sl Tab) 0.4 Mg) 1 tab Q5M PRN SL CHEST PAIN; Start 11/20/16 at 12:00 Zolpidem Tartrate (Ambien) 5 mg QHS PRN PO INSOMNIA; Start 11/20/16 at 12:00 Pantoprazole (Protonix Tab) 40 mg DAILY@06 PO Last administered on 12/16/16 05 :56; Admin Dose 40 MG; Start 11/21/16 at 06:00 Miscellaneous Information 1 ea NOTE XX ; Start 11/20/16 at 12:30 Glucose (Glutose) 15 gm Q15M PRN PO DECREASED GLUCOSE; Start 11/20/16 at 12:30 Glucose (Glutose) 22.5 gm Q15M PRN PO DECREASED GLUCOSE; Start 11/20/16 at 12: 30 Dextrose (D50w Syringe) 25 ml Q15M PRN IV DECREASED GLUCOSE; Start 11/20/16 at 12:30 Dextrose (D50w Syringe) 50 ml Q15M PRN IV DECREASED GLUCOSE; Start 11/20/16 at 12:30 Glucagon (Glucagen) 1 mg Q15M PRN IM DECREASED GLUCOSE; Start 11/20/16 at 12:30 Glucose (Glutose) 15 gm Q15M PRN BUCCAL DECREASED GLUCOSE Last administered on 12/12/16 08:29; Admin Dose 15 GM; Start 11/20/16 at 12:30 Levothyroxine Sodium (Synthroid) 125 mcg DAILY@06 PO Last administered on 05:57; Admin Dose 125 MCG; Start 11/22/16 at 06:00 Guaifenesin (Robitussin Liquid Cup) 100 mg Q6H PRN PO COUGH Last administered on 12/16/16 11:44; Admin Dose 100 MG; Start 11/23/16 at 16:30 IV Flush (NS 10 ml) 10 ml PRN PRN IV IV PROTOCOL; Start 11/24/16 at 15:30 Insulin Glargine 15 unit 15 unit HS SC Last administered on 12/15/16 21:06; Admin Dose 15 UNIT; Start 11/26/16 at 21:00 Albumin Human (Albumin Human 25%) 100 ml @ 100 mls/hr ONCE PRN IV after paracentesis; Start 12/02/16 at 02:00 Morphine Sulfate (morphine) 2 mg Q3H PRN IV PAIN LEVEL 7-10 Last administered on 12/16/16 11:47; Admin Dose 2 MG; Start 12/04/16 at 10:00 Apixaban (Eliquis) 2.5 mg BID PO Last administered on 12/16/16 08:26; Admin Dose 2.5 MG; Start 12/08/16 at 21:00 Acetaminophen (Tylenol Tab) 650 mg Q4H PRN PO PAIN LEVEL 1-3 OR FEVER Last administered on 12/11/16 01:53; Admin Dose 650 MG; Start 12/10/16 at 13:00 Midodrine 5 mg 5 mg TID PRN PO sbp<80; Start 12/15/16 at 21:00 Vancomycin HCl/ Sodium Chloride (Vancocin/NS) 250 ml @ 83.333 mls/ hr 10 IVPB Last administered on 12/16/16 10:22; Admin Dose 83.333 MLS/HR; Start 12/16/16 at 10:00; Stop 12/16/16 at 19:00 PEBBLES REYES Dec 16, 2016 14:05
[2016-12-16 14:51] LABS: FLUID TYPE PERITONEAL; FLUID WBC'S 3691 /cmm
[2016-12-16 14:52] LABS: FLUID RBC EST 4+
[2016-12-16 14:56] LABS: FLUID EOSINOPHIL 1 %; FLUID LYMPHOCYTES 91 %; FLUID MONOCYTES 6 %
[2016-12-16 15:02] LABS: FLUID APPEARANCE BLOODY
[2016-12-16 15:04] LABS: FLUID NEUTROPHILS 0 %
--- NOTE | 2016-12-16 16:30 | CONS ---
Date/Time of Note Date/Time of Note DATE: 12/16/16 TIME: 16:29 Assessment/Plan Assessment/Plan Additional Assessment/Plan Additional Assessment/Plan ASSESSMENT: 1. Refractory ascites. 2. Ischemic cardiomyopathy. 3. End-stage renal disease. 4. Cirrhosis of liver. 5.s/p pleurex drain for ascites,3 liters removed today 6.leaking around Pleurex 7. left hip pain 8. SBP,wbc 3600 Plan drain ascitic fluid PRN PT antibiotic as per ID d/c drainage catheter,done continue antibiotics Consultation Date/Type/Reason Admit Date/Time Nov 20, 2016 at 09:34 Initial Consult Date 11/21/16 Type of Consultation: cv Referring Provider: DEMETRA BRUNO MD 24 HR Interval Summary Constitutional: improved Exam/Review of Systems Vital Signs Vitals Vital Signs Date Time Temp Pulse Resp B/P Pulse Ox O2 Delivery O2 Flow Rate FiO2 12/16/16 16:15 87 12/16/16 15:37 97.8 17 91/54 100 12/13/16 01:58 Room Air Intake and Output 12/15/16 12/15/16 12/16/16 15:00 23:00 07:00 Intake Total 500 ml 620 ml 280 ml Output Total 3500 ml 600 ml Balance -3000 ml 620 ml -320 ml Exam Constitutional: alert, oriented, well developed Psych: nl mood/affect, no complaints Head: atraumatic, normocephalic Eyes: EOMI, PERRL, nl conjunctiva, nl lids, nl sclera ENMT: nl external ears & nose, nl lips & teeth, nl nasal mucosa & septum Neck: non-tender, supple Respiratory: clear to auscultation, normal air movement Cardiovascular: nl pulses, regular rate and rhythm Gastrointestinal: nl liver, spleen, non-tender, soft Musculoskeletal: nl extremities to inspection, nl gait and stance Extremities: normal pulses 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: CLAIM CLERK 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, nl mental status, nl speech, nl strength Skin: nl turgor, No rash or lesions Lymph: nl lymph nodes Results Result Diagram: 12/16/16 0600 12/16/16 0600 Results 24 hrs Laboratory Tests Test 12/15/16 16:46 12/15/16 21:01 12/16/16 06:00 12/16/16 07:51 Bedside Glucose 120 152 101 Anion Gap 17 H Anisocytosis 1+ Basophils # 0.0 Basophils % 0.3 Blood Urea Nitrogen 32 #H Calcium Level 7.1 L Carbon Dioxide Level 25 Chloride Level 93 L Creatinine 4.92 #H Eosinophils # 0.1 Eosinophils % 1.6 Glucose Level 100 Hematocrit 28.8 L Hemoglobin 9.0 L Lymphocytes # 0.8 Lymphocytes % 22.0 Mean Corpuscular Hemoglobin 28.5 L Mean Corpuscular Hemoglobin Concent 31.3 L Mean Corpuscular Volume 91.1 Mean Platelet Volume 11.0 H Monocytes # 0.7 Monocytes % 17.2 H Neutrophils # 2.2 Neutrophils % 58.1 Nucleated Red Blood Cells # 0.0 Nucleated Red Blood Cells % 0.0 Platelet Count 40 #L Platelet Estimate PLT APPEAR DECREASED Polychromasia 1+ Potassium Level 3.9 Random Vancomycin Level 12.2 Red Blood Count 3.16 L Red Cell Distribution Width 19.5 H Sodium Level 131 L White Blood Count 3.8 L Test 12/16/16 10:00 12/16/16 11:53 Body Fluid Appearance BLOODY Body Fluid Color RED Body Fluid Eosinophils % 1 Body Fluid Lymphocytes (%) 91 Body Fluid Monocytes % 6 Body Fluid Neutrophils % 0 Body Fluid Other Cells (%) 2 Body Fluid RBC 4+ Body Fluid Type PERITONEAL Body Fluid Volume 60.0 Body Fluid WBC 3691 Bedside Glucose 121 Medications Medications Current Medications Lorazepam (Ativan) 0.5 mg Q8H PRN PO ANXIETY Last administered on 12/14/16 02: 36; Admin Dose 0.5 MG; Start 11/20/16 at 12:00 Ondansetron HCl (Zofran Inj) 4 mg Q6H PRN IV NAUSEA AND/OR VOMITING Last administered on 11/23/16 05:32; Admin Dose 4 MG; Start 11/20/16 at 12:00 Nitroglycerin (Nitroglycerin (Sl Tab) 0.4 Mg) 1 tab Q5M PRN SL CHEST PAIN; Start 11/20/16 at 12:00 Zolpidem Tartrate (Ambien) 5 mg QHS PRN PO INSOMNIA; Start 11/20/16 at 12:00 Pantoprazole (Protonix Tab) 40 mg DAILY@06 PO Last administered on 12/16/16 05 :56; Admin Dose 40 MG; Start 11/21/16 at 06:00 Miscellaneous Information 1 ea NOTE XX ; Start 11/20/16 at 12:30 Glucose (Glutose) 15 gm Q15M PRN PO DECREASED GLUCOSE; Start 11/20/16 at 12:30 Glucose (Glutose) 22.5 gm Q15M PRN PO DECREASED GLUCOSE; Start 11/20/16 at 12: 30 Dextrose (D50w Syringe) 25 ml Q15M PRN IV DECREASED GLUCOSE; Start 11/20/16 at 12:30 Dextrose (D50w Syringe) 50 ml Q15M PRN IV DECREASED GLUCOSE; Start 11/20/16 at 12:30 Glucagon (Glucagen) 1 mg Q15M PRN IM DECREASED GLUCOSE; Start 11/20/16 at 12:30 Glucose (Glutose) 15 gm Q15M PRN BUCCAL DECREASED GLUCOSE Last administered on 12/12/16 08:29; Admin Dose 15 GM; Start 11/20/16 at 12:30 Levothyroxine Sodium (Synthroid) 125 mcg DAILY@06 PO Last administered on 05:57; Admin Dose 125 MCG; Start 11/22/16 at 06:00 Guaifenesin (Robitussin Liquid Cup) 100 mg Q6H PRN PO COUGH Last administered on 12/16/16 11:44; Admin Dose 100 MG; Start 11/23/16 at 16:30 IV Flush (NS 10 ml) 10 ml PRN PRN IV IV PROTOCOL; Start 11/24/16 at 15:30 Insulin Glargine 15 unit 15 unit HS SC Last administered on 12/15/16 21:06; Admin Dose 15 UNIT; Start 11/26/16 at 21:00 Albumin Human (Albumin Human 25%) 100 ml @ 100 mls/hr ONCE PRN IV after paracentesis; Start 12/02/16 at 02:00 Morphine Sulfate (morphine) 2 mg Q3H PRN IV PAIN LEVEL 7-10 Last administered on 12/16/16 15:30; Admin Dose 2 MG; Start 12/04/16 at 10:00 Apixaban (Eliquis) 2.5 mg BID PO Last administered on 12/16/16 08:26; Admin Dose 2.5 MG; Start 12/08/16 at 21:00 Acetaminophen (Tylenol Tab) 650 mg Q4H PRN PO PAIN LEVEL 1-3 OR FEVER Last administered on 12/11/16 01:53; Admin Dose 650 MG; Start 12/10/16 at 13:00 Midodrine 5 mg 5 mg TID PRN PO sbp<80; Start 12/15/16 at 21:00 Vancomycin HCl/ Sodium Chloride (Vancocin/NS) 250 ml @ 83.333 mls/ hr 10 IVPB Last administered on 12/16/16 10:22; Admin Dose 83.333 MLS/HR; Start 12/16/16 at 10:00; Stop 12/16/16 at 19:00 LOR MASON MD Dec 16, 2016 16:30
--- NOTE | 2016-12-16 18:22 | CONS ---
Date/Time of Note Date/Time of Note DATE: 12/16/16 TIME: 18:18 Assessment/Plan Assessment/Plan Chief Complaint/Hosp Course Next HD in AM Problems: Additional Assessment/Plan Will dialyze again on Sunday if BP stable Consultation Date/Type/Reason Admit Date/Time Nov 20, 2016 at 09:34 Initial Consult Date 11/21/16 Type of Consultation: renal Referring Provider: DEMETRA BRUNO MD 24 HR Interval Summary Free Text/Dictation BP still running low Constitutional: improved Exam/Review of Systems Vital Signs Vitals Vital Signs Date Time Temp Pulse Resp B/P Pulse Ox O2 Delivery O2 Flow Rate FiO2 12/16/16 16:15 87 12/16/16 15:37 97.8 17 91/54 100 12/13/16 01:58 Room Air Intake and Output 12/15/16 12/15/16 12/16/16 15:00 23:00 07:00 Intake Total 500 ml 620 ml 280 ml Output Total 3500 ml 600 ml Balance -3000 ml 620 ml -320 ml Exam Constitutional: alert, oriented, well developed Psych: nl mood/affect, no complaints Head: atraumatic, normocephalic Eyes: EOMI, PERRL, nl conjunctiva, nl lids, nl sclera ENMT: nl external ears & nose, nl lips & teeth, nl nasal mucosa & septum Neck: non-tender, supple Respiratory: clear to auscultation, normal air movement Cardiovascular: edema, nl pulses, regular rate and rhythm Gastrointestinal: ascites, nl liver, spleen, non-tender, other (Leak around abd cath), soft Musculoskeletal: nl extremities to inspection, nl gait and stance Extremities: normal pulses 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: DESIGN ENGINEER 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, nl mental status, nl speech, nl strength Skin: nl turgor, No rash or lesions Lymph: nl lymph nodes Results Result Diagram: 12/16/16 0600 12/16/16 0600 Results 24 hrs Laboratory Tests Test 12/15/16 21:01 12/16/16 06:00 12/16/16 07:51 12/16/16 10:00 Bedside Glucose 152 101 Anion Gap 17 H Anisocytosis 1+ Basophils # 0.0 Basophils % 0.3 Blood Urea Nitrogen 32 #H Calcium Level 7.1 L Carbon Dioxide Level 25 Chloride Level 93 L Creatinine 4.92 #H Eosinophils # 0.1 Eosinophils % 1.6 Glucose Level 100 Hematocrit 28.8 L Hemoglobin 9.0 L Lymphocytes # 0.8 Lymphocytes % 22.0 Mean Corpuscular Hemoglobin 28.5 L Mean Corpuscular Hemoglobin Concent 31.3 L Mean Corpuscular Volume 91.1 Mean Platelet Volume 11.0 H Monocytes # 0.7 Monocytes % 17.2 H Neutrophils # 2.2 Neutrophils % 58.1 Nucleated Red Blood Cells # 0.0 Nucleated Red Blood Cells % 0.0 Platelet Count 40 #L Platelet Estimate PLT APPEAR DECREASED Polychromasia 1+ Potassium Level 3.9 Random Vancomycin Level 12.2 Red Blood Count 3.16 L Red Cell Distribution Width 19.5 H Sodium Level 131 L White Blood Count 3.8 L Body Fluid Appearance BLOODY Body Fluid Color RED Body Fluid Eosinophils % 1 Body Fluid Lymphocytes (%) 91 Body Fluid Monocytes % 6 Body Fluid Neutrophils % 0 Body Fluid Other Cells (%) 2 Body Fluid RBC 4+ Body Fluid Type PERITONEAL Body Fluid Volume 60.0 Body Fluid WBC 3691 Test 12/16/16 11:53 12/16/16 17:39 Bedside Glucose 121 126 Medications Medications Current Medications Lorazepam (Ativan) 0.5 mg Q8H PRN PO ANXIETY Last administered on 12/14/16 02: 36; Admin Dose 0.5 MG; Start 11/20/16 at 12:00 Ondansetron HCl (Zofran Inj) 4 mg Q6H PRN IV NAUSEA AND/OR VOMITING Last administered on 11/23/16 05:32; Admin Dose 4 MG; Start 11/20/16 at 12:00 Nitroglycerin (Nitroglycerin (Sl Tab) 0.4 Mg) 1 tab Q5M PRN SL CHEST PAIN; Start 11/20/16 at 12:00 Zolpidem Tartrate (Ambien) 5 mg QHS PRN PO INSOMNIA; Start 11/20/16 at 12:00 Pantoprazole (Protonix Tab) 40 mg DAILY@06 PO Last administered on 12/16/16 05 :56; Admin Dose 40 MG; Start 11/21/16 at 06:00 Miscellaneous Information 1 ea NOTE XX ; Start 11/20/16 at 12:30 Glucose (Glutose) 15 gm Q15M PRN PO DECREASED GLUCOSE; Start 11/20/16 at 12:30 Glucose (Glutose) 22.5 gm Q15M PRN PO DECREASED GLUCOSE; Start 11/20/16 at 12: 30 Dextrose (D50w Syringe) 25 ml Q15M PRN IV DECREASED GLUCOSE; Start 11/20/16 at 12:30 Dextrose (D50w Syringe) 50 ml Q15M PRN IV DECREASED GLUCOSE; Start 11/20/16 at 12:30 Glucagon (Glucagen) 1 mg Q15M PRN IM DECREASED GLUCOSE; Start 11/20/16 at 12:30 Glucose (Glutose) 15 gm Q15M PRN BUCCAL DECREASED GLUCOSE Last administered on 12/12/16 08:29; Admin Dose 15 GM; Start 11/20/16 at 12:30 Levothyroxine Sodium (Synthroid) 125 mcg DAILY@06 PO Last administered on 05:57; Admin Dose 125 MCG; Start 11/22/16 at 06:00 Guaifenesin (Robitussin Liquid Cup) 100 mg Q6H PRN PO COUGH Last administered on 12/16/16 11:44; Admin Dose 100 MG; Start 11/23/16 at 16:30 IV Flush (NS 10 ml) 10 ml PRN PRN IV IV PROTOCOL; Start 11/24/16 at 15:30 Insulin Glargine 15 unit 15 unit HS SC Last administered on 12/15/16 21:06; Admin Dose 15 UNIT; Start 11/26/16 at 21:00 Albumin Human (Albumin Human 25%) 100 ml @ 100 mls/hr ONCE PRN IV after paracentesis; Start 12/02/16 at 02:00 Morphine Sulfate (morphine) 2 mg Q3H PRN IV PAIN LEVEL 7-10 Last administered on 12/16/16 15:30; Admin Dose 2 MG; Start 12/04/16 at 10:00 Apixaban (Eliquis) 2.5 mg BID PO Last administered on 12/16/16 08:26; Admin Dose 2.5 MG; Start 12/08/16 at 21:00 Acetaminophen (Tylenol Tab) 650 mg Q4H PRN PO PAIN LEVEL 1-3 OR FEVER Last administered on 12/11/16 01:53; Admin Dose 650 MG; Start 12/10/16 at 13:00 Midodrine 5 mg 5 mg TID PRN PO sbp<80; Start 12/15/16 at 21:00 Vancomycin HCl/ Sodium Chloride (Vancocin/NS) 250 ml @ 83.333 mls/ hr 10 IVPB Last administered on 12/16/16t 10:22; Admin Dose 83.333 MLS/HR; Start 12/16/16 at 10:00; Stop 12/16/16 at 19:00 MILADY ANDERSON MD Dec 16, 2016 18:22
[2016-12-16] MEDS: INSULIN GLARGINE [LANtus] 3 ML PEN SC SCH (21:00)
[2016-12-17] VITALS (12 sets, daily range): BP systolic 74–96; BP diastolic 34–67; PULSE 80–104; RESP 16
[2016-12-17] MEDS: LORAZEPAM 0.5 MG TAB PO PRN (01:59)
[2016-12-17] MEDS: morphine 2 MG INJ IV PRN ×5 (01:59→22:05)
[2016-12-17 06:06] LABS: ADD SCAN DIFF NO
[2016-12-17 06:23] LABS: POTASSIUM 4.4 mmol/L (3.5-5.1)
[2016-12-17 06:26] LABS: CREATININE 6.14 mg/dl (0.61-1.24)
[2016-12-17 06:27] LABS: CALCIUM 6.8 mg/dl (8.4-10.2)
[2016-12-17 06:30] LABS: ABNORMAL IP MESSAGE 1; HEMATOCRIT 29.3 % (42.0-52.0); HEMOGLOBIN 9.5 g/dl (14.0-18.0); MEAN CORPUSCULAR HEMOGLOBIN 29.1 pg (29.0-33.0); MEAN CORPUSCULAR HGB CONC 32.4 g/dl (32.0-37.0); MEAN CORPUSCULAR VOLUME 89.6 fl (82.0-101.0); RED BLOOD COUNT 3.27 10^6/ul (4.70-6.10); RED CELL DISTRIBUTION WIDTH 19.7 % (11.5-14.5); WHITE BLOOD COUNT 4.5 10^3/ul (4.8-10.8)
[2016-12-17 06:38] LABS: PLATELET COUNT 9 10^3/UL (140-415)
[2016-12-17] MEDS: PANTOPRAZOLE (EC) 40 MG TAB PO SCH (06:59)
[2016-12-17] MEDS: LEVOTHYROXINE 125 MCG TAB PO SCH (06:59)
[2016-12-17] MEDS: INSULIN ASPART [NOVOLOG] 3 ML PEN SC SCH ×4 (07:49→21:00)
[2016-12-17 09:26] LABS: BASOPHIL # 0.1 10^3/ul (0.0-0.1); EOSINOPHILS # 0.3 10^3/ul (0.0-0.5); LYMPHOCYTES # 1.1 10^3/ul (0.8-2.9); MONOCYTE # 0.5 10^3/ul (0.3-0.9); NEUTROPHIL # 2.1 10^3/ul (1.6-7.5); SMUDGE CELLS% Few
[2016-12-17] MEDS: APIXABAN 5 MG TABLET PO SCH (09:50)
[2016-12-17 09:55] LABS: ADD SCAN DIFF NO
[2016-12-17 09:58] LABS: ABNORMAL IP MESSAGE 1; BASOPHILS % 0.2 % (0.0-2.0); EOSINOPHILS # 0.2 10^3/ul (0.0-0.5); HEMATOCRIT 30.1 % (42.0-52.0); HEMOGLOBIN 9.5 g/dl (14.0-18.0); LYMPHOCYTES # 1.4 10^3/ul (0.8-2.9); LYMPHOCYTES % 29.8 % (15.0-51.0); MEAN CORPUSCULAR HEMOGLOBIN 28.4 pg (29.0-33.0); MEAN CORPUSCULAR HGB CONC 31.6 g/dl (32.0-37.0); MEAN CORPUSCULAR VOLUME 90.1 fl (82.0-101.0); MONOCYTE # 0.6 10^3/ul (0.3-0.9); MONOCYTES % 13.1 % (0.0-11.0); NEUTROPHIL # 2.5 10^3/ul (1.6-7.5); NEUTROPHILS % 52.3 % (39.0-77.0); RED BLOOD COUNT 3.34 10^6/ul (4.70-6.10); RED CELL DISTRIBUTION WIDTH 19.9 % (11.5-14.5); WHITE BLOOD COUNT 4.7 10^3/ul (4.8-10.8)
[2016-12-17 10:07] LABS: PLATELET COUNT 10 10^3/UL (140-415)
[2016-12-17 10:19] LABS: PLATELET ESTIMATE PLT APPEAR DECREASED
--- NOTE | 2016-12-17 12:26 | CONS ---
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 (Denied cardiac transplant at [facility]) Biventricular pacemaker and ICD Mitral and tricuspid valve regurgitation. Severe pulmonary hypertension. End-stage renal disease on hemodialysis Ascites status post paracentesis Atrial fibrillation -Patient status post removal of peritoneal catheter secondary to concern of SBP. Fluid management via hemodialysis as per our nephrology colleagues. Consultation Date/Type/Reason Admit Date/Time Nov 20, 2016 at 09:34 Initial Consult Date 11/21/16 Type of Consultation: cv Referring Provider: DEMETRA BRUNO MD 24 HR Interval Summary Free Text/Dictation Shortness of breath is better, denies dizziness or chest pain Exam/Review of Systems Vital Signs Vitals Vital Signs Date Time Temp Pulse Resp B/P Pulse Ox O2 Delivery O2 Flow Rate FiO2 12/17/16 12:17 81 12/17/16 11:33 98.5 16 74/34 98 76/37 12/17/16 04:56 Room Air Intake and Output 12/16/16 12/16/16 12/17/16 15:00 23:00 07:00 Intake Total 450 ml Output Total 300 ml 950 ml Balance 150 ml -950 ml Exam No apparent distress Constitutional: alert, frail, oriented Head: normocephalic Neck: supple Respiratory: other (Coarse breath sounds bilaterally, no wheezing) Cardiovascular: other (S1-S2), regular rate and rhythm Gastrointestinal: ascites, bowel sounds, distended, non-tender, other (No guarding), soft Extremities: edema (Trace) Results Result Diagram: 12/17/16 0935 12/17/16 0546 Results 24 hrs Laboratory Tests Test 12/16/16 17:39 12/16/16 22:13 12/17/16 05:46 12/17/16 07:46 Bedside Glucose 126 164 85 Anion Gap 19 H Band Neutrophils % 9.0 H Basophils # 0.1 Basophils % 2.0 Blood Urea Nitrogen 41 H Calcium Level 6.8 L Carbon Dioxide Level 23 Chloride Level 92 L Creatinine 6.14 H Differential Comment Eosinophils # 0.3 Eosinophils % 6.0 Giant Platelets FEW Glucose Level 75 Hematocrit 29.3 L Hemoglobin 9.5 L Lymphocytes # 1.1 Lymphocytes % 25.0 Mean Corpuscular Hemoglobin 29.1 Mean Corpuscular Hemoglobin Concent 32.4 Mean Corpuscular Volume 89.6 Mean Platelet Volume Metamyelocytes # 0.0 Metamyelocytes % 1.0 H Monocytes # 0.5 Monocytes % 11.0 Neutrophils # 2.1 Neutrophils % 46.0 Nucleated Red Blood Cells # Nucleated Red Blood Cells % Platelet Count 9 #*L Platelet Estimate PLT APPEAR DECREASED Potassium Level 4.4 Red Blood Count 3.27 L Red Cell Distribution Width 19.7 H Smudge Cells Few Sodium Level 130 L White Blood Count 4.5 L Test 12/17/16 09:35 12/17/16 11:57 Basophils # 0.0 Basophils % 0.2 Eosinophils # 0.2 Eosinophils % 4.0 Hematocrit 30.1 L Hemoglobin 9.5 L Lymphocytes # 1.4 Lymphocytes % 29.8 Mean Corpuscular Hemoglobin 28.4 L Mean Corpuscular Hemoglobin Concent 31.6 L Mean Corpuscular Volume 90.1 Mean Platelet Volume Monocytes # 0.6 Monocytes % 13.1 H Neutrophils # 2.5 Neutrophils % 52.3 Nucleated Red Blood Cells # 0.0 Nucleated Red Blood Cells % 0.0 Platelet Count 10 *L Red Blood Count 3.34 L Red Cell Distribution Width 19.9 H White Blood Count 4.7 L Bedside Glucose 80 Medications Medications Current Medications Lorazepam (Ativan) 0.5 mg Q8H PRN PO ANXIETY Last administered on 12/17/16 01: 59; Admin Dose 0.5 MG; Start 11/20/16 at 12:00 Ondansetron HCl (Zofran Inj) 4 mg Q6H PRN IV NAUSEA AND/OR VOMITING Last administered on 11/23/16 05:32; Admin Dose 4 MG; Start 11/20/16 at 12:00 Nitroglycerin (Nitroglycerin (Sl Tab) 0.4 Mg) 1 tab Q5M PRN SL CHEST PAIN; Start 11/20/16 at 12:00 Zolpidem Tartrate (Ambien) 5 mg QHS PRN PO INSOMNIA; Start 11/20/16 at 12:00 Pantoprazole (Protonix Tab) 40 mg DAILY@06 PO Last administered on 12/17/16 06 :59; Admin Dose 40 MG; Start 11/21/16 at 06:00 Miscellaneous Information 1 ea NOTE XX ; Start 11/20/16 at 12:30 Glucose (Glutose) 15 gm Q15M PRN PO DECREASED GLUCOSE; Start 11/20/16 at 12:30 Glucose (Glutose) 22.5 gm Q15M PRN PO DECREASED GLUCOSE; Start 11/20/16 at 12: 30 Dextrose (D50w Syringe) 25 ml Q15M PRN IV DECREASED GLUCOSE; Start 11/20/16 at 12:30 Dextrose (D50w Syringe) 50 ml Q15M PRN IV DECREASED GLUCOSE; Start 11/20/16 at 12:30 Glucagon (Glucagen) 1 mg Q15M PRN IM DECREASED GLUCOSE; Start 11/20/16 at 12:30 Glucose (Glutose) 15 gm Q15M PRN BUCCAL DECREASED GLUCOSE Last administered on 12/12/16 08:29; Admin Dose 15 GM; Start 11/20/16 at 12:30 Levothyroxine Sodium (Synthroid) 125 mcg DAILY@06 PO Last administered on 06:59; Admin Dose 125 MCG; Start 11/22/16 at 06:00 Guaifenesin (Robitussin Liquid Cup) 100 mg Q6H PRN PO COUGH Last administered on 12/16/16 11:44; Admin Dose 100 MG; Start 11/23/16 at 16:30 IV Flush (NS 10 ml) 10 ml PRN PRN IV IV PROTOCOL; Start 11/24/16 at 15:30 Insulin Glargine 15 unit 15 unit HS SC Last administered on 12/16/16 21:00; Admin Dose 15 UNIT; Start 11/26/16 at 21:00 Albumin Human (Albumin Human 25%) 100 ml @ 100 mls/hr ONCE PRN IV after paracentesis; Start 12/02/16 at 02:00 Morphine Sulfate (morphine) 2 mg Q3H PRN IV PAIN LEVEL 7-10 Last administered on 12/17/16 09:51; Admin Dose 2 MG; Start 12/04/16 at 10:00 Apixaban (Eliquis) 2.5 mg BID PO Last administered on 12/17/16 09:50; Admin Dose 2.5 MG; Start 12/08/16 at 21:00 Acetaminophen (Tylenol Tab) 650 mg Q4H PRN PO PAIN LEVEL 1-3 OR FEVER Last administered on 12/11/16t 01:53; Admin Dose 650 MG; Start 12/10/16 at 13:00 Midodrine (Proamatine) 5 mg TID PRN PO sbp<80; Start 12/15/16 at 21:00 Harpreet Cee DO Dec 17, 2016 12:25
[2016-12-17 14:32] LABS: ADD SCAN DIFF NO; HAAIG REFLEX REFLEX FILED
[2016-12-17 14:42] LABS: ABNORMAL IP MESSAGE 1; BASOPHILS % 0.6 % (0.0-2.0); EOSINOPHILS # 0.2 10^3/ul (0.0-0.5); EOSINOPHILS % 3.6 % (0.0-7.0); HEMATOCRIT 29.1 % (42.0-52.0); HEMOGLOBIN 9.4 g/dl (14.0-18.0); LYMPHOCYTES # 1.2 10^3/ul (0.8-2.9); LYMPHOCYTES % 23.6 % (15.0-51.0); MEAN CORPUSCULAR HGB CONC 32.3 g/dl (32.0-37.0); MEAN CORPUSCULAR VOLUME 89.8 fl (82.0-101.0); MONOCYTE # 0.6 10^3/ul (0.3-0.9); MONOCYTES % 11.3 % (0.0-11.0); NEUTROPHIL # 3.1 10^3/ul (1.6-7.5); NEUTROPHILS % 60.3 % (39.0-77.0); RED BLOOD COUNT 3.24 10^6/ul (4.70-6.10); RED CELL DISTRIBUTION WIDTH 19.4 % (11.5-14.5); WHITE BLOOD COUNT 5.1 10^3/ul (4.8-10.8)
[2016-12-17 14:48] LABS: INR 1.21; PROTIME 15.4 Sec (12.2-14.2); PT RATIO 1.2
[2016-12-17 14:49] LABS: PARTIAL THROMBOPLASTIN TIME 40.2 Sec (25.0-35.0)
[2016-12-17 14:52] LABS: PLATELET COUNT 8 10^3/UL (140-415)
[2016-12-17 14:55] LABS: D-DIMER 3189.01 ng/ml (<460)
[2016-12-17 15:01] LABS: PLATELET COUNT 8 10^3/UL (140-440)
[2016-12-17 15:10] LABS: FIBRIN SPLIT PRODUCT <10 ug/ml (<10)
[2016-12-17 15:51] LABS: HEPATITIS B CORE ANTIBODY NEGATIVE (NEGATIVE)
[2016-12-17 15:54] LABS: THROMBIN TIME 17.2 SEC (13.8-19.1)
--- NOTE | 2016-12-17 16:31 | CONS ---
Date/Time of Note Date/Time of Note DATE: 12/17/16 TIME: 16:12 Assessment/Plan Assessment/Plan Chief Complaint/Hosp Course ID PROGRESS NOTE CURRENT ABX=> Vanco IV #4 => DC'd this am due to profound thrombocytopenia s/pCeftriaxone 24H INTERVAL SUMMARY 12/17/16 1420 12/17/16 0546 * Profound severe thrombocytopenia w/Vanco IV DC'd * Patient is clinically status quo = chronic debility w/fatigue-lethargy * Awakens to verbal stimuli, no c/o, Afebrile, VSS, NAD * (+)SBP w/Opporutnistic Staph-CoNS x2 straines due to infected PD catheter = catheter removed per Dr. Juarez 12/15 Loyd: 12/11/16 Rcvd: 12/11/16 Source: PERITONEAL Sp Descrip: Microbiology GRAM STAIN Final POLYMORPH. LEUKOCYTE 1+ GRAM POS COCCI IN PAIRS 1+ BODY FLUID CULTURE Final Organism 1 COAGULASE NEGATIVE STAPH#2 QUANTITY 4+ Organism 2 COAGULASE NEGATIVE STAPH QUANTITY 4+ COAG NEG#2 COAG NEG M.I.C. RX M.I.C. RX --------- --- --------- --- CEFAZOLIN R R CIPROFLOXACIN >=8 R <=0.5 S CLINDAMYCIN <=0.25 S >=8 R DOXYCYCLINE S S ERYTHROMYCIN <=0.25 S >=8 R LEVOFLOXACIN >=8 R <=0.12 S OXACILLIN 1 R >=4 R PENICILLIN-G >=0.5 R >=0.5 R RIFAMPIN <=0.5 S <=0.5 S VANCOMYCIN <=0.5 S 1 S TRIMETHOPRIM/SULFAMETHOXAZOLE <=10 S <=10 S PHYSICAL EXAMINATION: GENERAL: VSS, NAD HEENT: Unremarkable NECK: Supple, trachea midline. CHEST: Rise symmetrical, without dyspnea on observation HEART: Pulse RRR ABDOMEN: Soft, benign EXTREMITIES: Warm ID ASSESSMENT 66 yo M w/multi-organ failure admit with: 1. s/p Sepsis w/hypotension due to peritonitis, infected catheter/catheter was also leaking =. OPPORTUNISTIC (+)CoNS w/heavy growth-> Notorious for sticky biofilm production on invasive devices BODY FLUID CULTURE Final Organism 1 COAGULASE NEGATIVE STAPH#2 QUANTITY 4+ Organism 2 COAGULASE NEGATIVE STAPH QUANTITY 4+ 2. Refractory ascites => s/p pleurex drain for ascites, leaking around Pleurex= > Drain removed 12/15/16 3. Cirrhosis w/portal Hypertension + Ascites status post paracentesis * Pancytopenia w/severe thrombocytopenia due to liver failure + ABX 4. CV: Chronic decompensated systolic and diastolic heart failure * Cardiomyopathy, likely ischemic and nonischemic in origin with an ejection fraction less than 20%. * CAD w/Hx of remote CABG * Biventricular pacemaker and ICD * Mitral and tricuspid valve regurgitation. * Severe pulmonary hypertension. 5. End-stage renal disease on hemodialysis 6. AV fistula stenosis status post venoplasty 7. Left hip pain (-)MRSA Nares INVASIVES: PIV, ABX ALLERGY: KNDA CURRENT ABX: =>Doxycycline #1 + Hibiclens bath QPM * Vanco IV #4 -> DC'd this am due to severe thrombocytopenia ID RECOMMENDATIONS 1. Concur w/DC Vanco IV per profound thrombocytopenia * NOTE: Vit B6 50mg po daily Rx added for adjunctive cytotoxic recovery 2. Drain Catheter has been removed due to OPPORTUNISTIC (+)CoNS infx x2 species w/HEAVY GROWTH=> Notorious for sticky biofilm production on invasive devices * Presumptive Rx for opportunistic Staph CoNS SBP treated w/Vanco IV x4 days 2. Rx Doxycycline 100mg po BID until SUN * PRN paracentesis for ascites, may consider replacement drainage catheter this week as patient in treatment for decolonization of Staph CoNS opportunistic skin bacteria. 3. Hibiclens bath QPM ordered as per below: * [facility] [place] NURSE ORDER: .Please assist w/Hibiclens bath = head to toe QPM with attention to hand hygeine. Set up warm H2O hand soak w/Hibiclens + soft toothbrush scrub under fingernails. RX to offload STAPH skin bacteria which puts him at risk for Bacterial Peritonitis during Paracentesis. Pt may have another ascites para drainage catheter placed -- want to give him best chance of removal staph bacterial skin colonization prior to repeat para or new catheter placement. Thank you . Problems: Consultation Date/Type/Reason Admit Date/Time Nov 20, 2016 at 09:34 Initial Consult Date 11/21/16 Type of Consultation: ID Referring Provider: DEMETRA BRUNO MD Exam/Review of Systems Vital Signs Vitals Vital Signs Date Time Temp Pulse Resp B/P Pulse Ox O2 Delivery O2 Flow Rate FiO2 12/17/16 15:48 97.7 90 16 82/48 97 12/17/16 04:56 Room Air Intake and Output 12/16/16 12/16/16 12/17/16 15:00 23:00 07:00 Intake Total 450 ml Output Total 300 ml 950 ml Balance 150 ml -950 ml Results Result Diagram: 12/17/16 1420 12/17/16 0546 Results 24 hrs Laboratory Tests Test 12/16/16 17:39 12/16/16 22:13 12/17/16 05:46 12/17/16 07:46 Bedside Glucose 126 164 85 Anion Gap 19 H Band Neutrophils % 9.0 H Basophils # 0.1 Basophils % 2.0 Blood Urea Nitrogen 41 H Calcium Level 6.8 L Carbon Dioxide Level 23 Chloride Level 92 L Creatinine 6.14 H Differential Comment Eosinophils # 0.3 Eosinophils % 6.0 Giant Platelets FEW Glucose Level 75 Hematocrit 29.3 L Hemoglobin 9.5 L Lymphocytes # 1.1 Lymphocytes % 25.0 Mean Corpuscular Hemoglobin 29.1 Mean Corpuscular Hemoglobin Concent 32.4 Mean Corpuscular Volume 89.6 Mean Platelet Volume Metamyelocytes # 0.0 Metamyelocytes % 1.0 H Monocytes # 0.5 Monocytes % 11.0 Neutrophils # 2.1 Neutrophils % 46.0 Nucleated Red Blood Cells # Nucleated Red Blood Cells % Platelet Count 9 #*L Platelet Estimate PLT APPEAR DECREASED Potassium Level 4.4 Red Blood Count 3.27 L Red Cell Distribution Width 19.7 H Smudge Cells Few Sodium Level 130 L White Blood Count 4.5 L Test 12/17/16 09:35 12/17/16 11:57 12/17/16 14:20 Basophils # 0.0 0.0 Basophils % 0.2 0.6 Eosinophils # 0.2 0.2 Eosinophils % 4.0 3.6 Hematocrit 30.1 L 29.1 L Hemoglobin 9.5 L 9.4 L Lymphocytes # 1.4 1.2 Lymphocytes % 29.8 23.6 Mean Corpuscular Hemoglobin 28.4 L 29.0 Mean Corpuscular Hemoglobin Concent 31.6 L 32.3 Mean Corpuscular Volume 90.1 89.8 Mean Platelet Volume Monocytes # 0.6 0.6 Monocytes % 13.1 H 11.3 H Neutrophils # 2.5 3.1 Neutrophils % 52.3 60.3 Nucleated Red Blood Cells # 0.0 0.0 Nucleated Red Blood Cells % 0.0 0.0 Platelet Count 10 *L 8 *L Red Blood Count 3.34 L 3.24 L Red Cell Distribution Width 19.9 H 19.4 H White Blood Count 4.7 L 5.1 Bedside Glucose 80 Activated Partial Thromboplast Time 40.2 H D-Dimer 3189.01 H D-Dimer Comment Fibrinogen 197.0 L HIV (1&2) Antibody NEGATIVE Hepatitis B Core Total Antibody NEGATIVE Hepatitis B Surface Antigen NEGATIVE Hepatitis C Antibody NEGATIVE INR International Normalized Ratio 1.21 Plasma Fibrin Degradation Products <10 Prothrombin Time 15.4 H Prothrombin Time Ratio 1.2 Thrombin Time Pending Medications Medications Current Medications Lorazepam (Ativan) 0.5 mg Q8H PRN PO ANXIETY Last administered on 12/17/16 01: 59; Admin Dose 0.5 MG; Start 11/20/16 at 12:00 Ondansetron HCl (Zofran Inj) 4 mg Q6H PRN IV NAUSEA AND/OR VOMITING Last administered on 11/23/16 05:32; Admin Dose 4 MG; Start 11/20/16 at 12:00 Nitroglycerin (Nitroglycerin (Sl Tab) 0.4 Mg) 1 tab Q5M PRN SL CHEST PAIN; Start 11/20/16 at 12:00 Zolpidem Tartrate (Ambien) 5 mg QHS PRN PO INSOMNIA; Start 11/20/16 at 12:00 Pantoprazole (Protonix Tab) 40 mg DAILY@06 PO Last administered on 12/17/16 06 :59; Admin Dose 40 MG; Start 11/21/16 at 06:00 Miscellaneous Information 1 ea NOTE XX ; Start 11/20/16 at 12:30 Glucose (Glutose) 15 gm Q15M PRN PO DECREASED GLUCOSE; Start 11/20/16 at 12:30 Glucose (Glutose) 22.5 gm Q15M PRN PO DECREASED GLUCOSE; Start 11/20/16 at 12: 30 Dextrose (D50w Syringe) 25 ml Q15M PRN IV DECREASED GLUCOSE; Start 11/20/16 at 12:30 Dextrose (D50w Syringe) 50 ml Q15M PRN IV DECREASED GLUCOSE; Start 11/20/16 at 12:30 Glucagon (Glucagen) 1 mg Q15M PRN IM DECREASED GLUCOSE; Start 11/20/16 at 12:30 Glucose (Glutose) 15 gm Q15M PRN BUCCAL DECREASED GLUCOSE Last administered on 12/12/16 08:29; Admin Dose 15 GM; Start 11/20/16 at 12:30 Levothyroxine Sodium (Synthroid) 125 mcg DAILY@06 PO Last administered on 06:59; Admin Dose 125 MCG; Start 11/22/16 at 06:00 Guaifenesin (Robitussin Liquid Cup) 100 mg Q6H PRN PO COUGH Last administered on 12/16/16 11:44; Admin Dose 100 MG; Start 11/23/16 at 16:30 IV Flush (NS 10 ml) 10 ml PRN PRN IV IV PROTOCOL; Start 11/24/16 at 15:30 Insulin Glargine 15 unit 15 unit HS SC Last administered on 12/16/16 21:00; Admin Dose 15 UNIT; Start 11/26/16 at 21:00 Albumin Human (Albumin Human 25%) 100 ml @ 100 mls/hr ONCE PRN IV after paracentesis; Start 12/02/16 at 02:00 Morphine Sulfate (morphine) 2 mg Q3H PRN IV PAIN LEVEL 7-10 Last administered on 12/17/16 14:46; Admin Dose 2 MG; Start 12/04/16 at 10:00 Apixaban (Eliquis) 2.5 mg BID PO Last administered on 12/17/16 09:50; Admin Dose 2.5 MG; Start 12/08/16 at 21:00 Acetaminophen (Tylenol Tab) 650 mg Q4H PRN PO PAIN LEVEL 1-3 OR FEVER Last administered on 12/11/16 01:53; Admin Dose 650 MG; Start 2/19/17 at 13:00 Midodrine (Proamatine) 5 mg TID PRN PO sbp<80; Start 12/15/16 at 21:00 JOVON CALERO NP Dec 17, 2016 16:22
--- NOTE | 2016-12-17 17:20 | CONS ---
Date/Time of Note Date/Time of Note DATE: 12/17/16 TIME: 17:18 Assessment/Plan Assessment/Plan Additional Assessment/Plan ditional Assessment/Plan Additional Assessment/Plan ASSESSMENT: 1. Refractory ascites. 2. Ischemic cardiomyopathy. 3. End-stage renal disease. 4. Cirrhosis of liver. 5.s/p pleurex drain for ascites,3 liters removed today 6.leaking around Pleurex 7. left hip pain 8. SBP,wbc 3600 9.hypotension Plan drain ascitic fluid PRN PT antibiotic as per ID d/c drainage catheter,done continue antibiotics fluid for cytology Consultation Date/Type/Reason Admit Date/Time Nov 20, 2016 at 09:34 Initial Consult Date 11/21/16 Type of Consultation: ID Referring Provider: DEMETRA BRUNO MD 24 HR Interval Summary Free Text/Dictation abdominal pain and weakness Exam/Review of Systems Vital Signs Vitals Vital Signs Date Time Temp Pulse Resp B/P Pulse Ox O2 Delivery O2 Flow Rate FiO2 12/17/16 16:19 88 12/17/16 15:48 97.7 16 82/48 97 12/17/16 04:56 Room Air Intake and Output 12/16/16 12/16/16 12/17/16 15:00 23:00 07:00 Intake Total 450 ml Output Total 300 ml 950 ml Balance 150 ml -950 ml Exam Constitutional: alert, oriented, well developed Psych: nl mood/affect, no complaints Head: atraumatic, normocephalic Eyes: EOMI, PERRL, nl conjunctiva, nl lids, nl sclera ENMT: nl external ears & nose, nl lips & teeth, nl nasal mucosa & septum Neck: non-tender, supple Respiratory: clear to auscultation, normal air movement Cardiovascular: nl pulses, regular rate and rhythm Gastrointestinal: nl liver, spleen, non-tender, soft Musculoskeletal: nl extremities to inspection, nl gait and stance Extremities: normal pulses 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: [employer] 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, nl mental status, nl speech, nl strength Skin: nl turgor, No rash or lesions Lymph: nl lymph nodes Results Result Diagram: 12/17/16 1420 12/17/16 0546 Results 24 hrs Laboratory Tests Test 12/16/16 17:39 12/16/16 22:13 12/17/16 05:46 12/17/16 07:46 Bedside Glucose 126 164 85 Anion Gap 19 H Band Neutrophils % 9.0 H Basophils # 0.1 Basophils % 2.0 Blood Urea Nitrogen 41 H Calcium Level 6.8 L Carbon Dioxide Level 23 Chloride Level 92 L Creatinine 6.14 H Differential Comment Eosinophils # 0.3 Eosinophils % 6.0 Giant Platelets FEW Glucose Level 75 Hematocrit 29.3 L Hemoglobin 9.5 L Lymphocytes # 1.1 Lymphocytes % 25.0 Mean Corpuscular Hemoglobin 29.1 Mean Corpuscular Hemoglobin Concent 32.4 Mean Corpuscular Volume 89.6 Mean Platelet Volume Metamyelocytes # 0.0 Metamyelocytes % 1.0 H Monocytes # 0.5 Monocytes % 11.0 Neutrophils # 2.1 Neutrophils % 46.0 Nucleated Red Blood Cells # Nucleated Red Blood Cells % Platelet Count 9 #*L Platelet Estimate PLT APPEAR DECREASED Potassium Level 4.4 Red Blood Count 3.27 L Red Cell Distribution Width 19.7 H Smudge Cells Few Sodium Level 130 L White Blood Count 4.5 L Test 12/17/16 09:35 12/17/16 11:57 12/17/16 14:20 Basophils # 0.0 0.0 Basophils % 0.2 0.6 Eosinophils # 0.2 0.2 Eosinophils % 4.0 3.6 Hematocrit 30.1 L 29.1 L Hemoglobin 9.5 L 9.4 L Lymphocytes # 1.4 1.2 Lymphocytes % 29.8 23.6 Mean Corpuscular Hemoglobin 28.4 L 29.0 Mean Corpuscular Hemoglobin Concent 31.6 L 32.3 Mean Corpuscular Volume 90.1 89.8 Mean Platelet Volume Monocytes # 0.6 0.6 Monocytes % 13.1 H 11.3 H Neutrophils # 2.5 3.1 Neutrophils % 52.3 60.3 Nucleated Red Blood Cells # 0.0 0.0 Nucleated Red Blood Cells % 0.0 0.0 Platelet Count 10 *L 8 *L Red Blood Count 3.34 L 3.24 L Red Cell Distribution Width 19.9 H 19.4 H White Blood Count 4.7 L 5.1 Bedside Glucose 80 Activated Partial Thromboplast Time 40.2 H D-Dimer 3189.01 H D-Dimer Comment Fibrinogen 197.0 L HIV (1&2) Antibody NEGATIVE Hepatitis B Core Total Antibody NEGATIVE Hepatitis B Surface Antigen NEGATIVE Hepatitis C Antibody NEGATIVE INR International Normalized Ratio 1.21 Plasma Fibrin Degradation Products <10 Prothrombin Time 15.4 H Prothrombin Time Ratio 1.2 Thrombin Time Pending Medications Medications Current Medications Lorazepam (Ativan) 0.5 mg Q8H PRN PO ANXIETY Last administered on 12/17/16 01: 59; Admin Dose 0.5 MG; Start 11/20/16 at 12:00 Ondansetron HCl (Zofran Inj) 4 mg Q6H PRN IV NAUSEA AND/OR VOMITING Last administered on 11/23/16 05:32; Admin Dose 4 MG; Start 11/20/16 at 12:00 Nitroglycerin (Nitroglycerin (Sl Tab) 0.4 Mg) 1 tab Q5M PRN SL CHEST PAIN; Start 11/20/16 at 12:00 Zolpidem Tartrate (Ambien) 5 mg QHS PRN PO INSOMNIA; Start 11/20/16 at 12:00 Pantoprazole (Protonix Tab) 40 mg DAILY@06 PO Last administered on 12/17/16 06 :59; Admin Dose 40 MG; Start 11/21/16 at 06:00 Miscellaneous Information 1 ea NOTE XX ; Start 11/20/16 at 12:30 Glucose (Glutose) 15 gm Q15M PRN PO DECREASED GLUCOSE; Start 11/20/16 at 12:30 Glucose (Glutose) 22.5 gm Q15M PRN PO DECREASED GLUCOSE; Start 11/20/16 at 12: 30 Dextrose (D50w Syringe) 25 ml Q15M PRN IV DECREASED GLUCOSE; Start 11/20/16 at 12:30 Dextrose (D50w Syringe) 50 ml Q15M PRN IV DECREASED GLUCOSE; Start 11/20/16 at 12:30 Glucagon (Glucagen) 1 mg Q15M PRN IM DECREASED GLUCOSE; Start 11/20/16 at 12:30 Glucose (Glutose) 15 gm Q15M PRN BUCCAL DECREASED GLUCOSE Last administered on 12/12/16 08:29; Admin Dose 15 GM; Start 11/20/16 at 12:30 Levothyroxine Sodium (Synthroid) 125 mcg DAILY@06 PO Last administered on 06:59; Admin Dose 125 MCG; Start 11/22/16 at 06:00 Guaifenesin (Robitussin Liquid Cup) 100 mg Q6H PRN PO COUGH Last administered on 12/16/16 11:44; Admin Dose 100 MG; Start 11/23/16 at 16:30 IV Flush (NS 10 ml) 10 ml PRN PRN IV IV PROTOCOL; Start 11/24/16 at 15:30 Insulin Glargine 15 unit 15 unit HS SC Last administered on 12/16/16 21:00; Admin Dose 15 UNIT; Start 11/26/16 at 21:00 Albumin Human (Albumin Human 25%) 100 ml @ 100 mls/hr ONCE PRN IV after paracentesis; Start 12/02/16 at 02:00 Morphine Sulfate (morphine) 2 mg Q3H PRN IV PAIN LEVEL 7-10 Last administered on 12/17/16 14:46; Admin Dose 2 MG; Start 12/04/16 at 10:00 Apixaban (Eliquis) 2.5 mg BID PO Last administered on 12/17/16 09:50; Admin Dose 2.5 MG; Start 12/08/16 at 21:00 Acetaminophen (Tylenol Tab) 650 mg Q4H PRN PO PAIN LEVEL 1-3 OR FEVER Last administered on 12/11/16 01:53; Admin Dose 650 MG; Start 12/10/16 at 13:00 Midodrine (Proamatine) 5 mg TID PRN PO sbp<80; Start 12/15/16 at 21:00 Doxycycline Hyclate (Vibramycin) 100 mg BID PO ; Start 12/17/16 at 21:00; Stop 01/19/17 at 22:00 Pyridoxine HCl (Vitamin B6) 50 mg DAILY PO ; Start 12/17/16 at 16:30 LOR MASON MD Dec 17, 2016 17:20
[2016-12-17] MEDS: SOD CHLORIDE 0.9% 1,000 ML IV SCH (17:30)
--- NOTE | 2016-12-17 17:46 | PN ---
Date/Time of Note Date/Time of Note DATE: 12/17/16 TIME: 17:30 Assessment/Plan VTE Prophylaxis VTE Prophylaxis Intervention: other Lines/Catheters IV [facility]ter Type (from [facility] PICC Line Central line still needed: Yes Urinary Cath still in place: No Assessment/Plan Assessment/Plan - Peritonitis, DC peritoneal catheter - continue antibiotics per ID. - Status post mechanical fall. - Brain CT is negative, hip x-ray is negative for fracture. - Severe hypotension requiring pressors, resolved. - Congestive heart failure exacerbation with ejection fraction of 20% per last echo. Continue to remove fluids with hemodialysis. - Ascites, status post paracentesis on11/20, 12/02. S/p tunneled peritoneal drainage catheter placement 12/06. - End-stage renal disease, hemodialysis-dependent. - per Dr. Maddox from nephrology standpoint. Continue patient on hemodialysis. - Coronary artery disease status post coronary artery bypass graft. Continue patient on aspirin and Coreg. - per Dr. Cee from cardiology standpoint. - Hypothyroidism. TSH is 14, Synthroid increased to 125. - Diabetes mellitus type 2. Continue to monitor blood sugar with mild algorithm scale, NovoLog coverage. - Hemodialysis access, status post right AV fistulogram by Dr. Loco, vascular surgery on 11/21. - Liver cirrhosis and portal hypertension. - per Dr. Kirkpatrick in gastroenterology consultation. - Thrombocytopenia - oncology consult - i unit platelet transfusion - hold eliquis Continue Protonix for peptic ulcer disease prophylaxis. Further recommendations based on clinical course. Plan of care discussed with Dr. Vick. Subjective 24 Hr Interval Summary Eyes: no complaints ENT: no complaints Respiratory: no complaints Cardiovascular: no complaints Gastrointestinal: pain Genitourinary: other (Peritoneal dialysis, HD) Musculoskeletal: no complaints Skin: no complaints Neurologic: no complaints Endocrine: no complaints Lymphatic: no complaints Psychological: no complaints Immunologic: no complaints Exam/Review of Systems Vital Signs Vitals Vital Signs Date Time Temp Pulse Resp B/P Pulse Ox O2 Delivery O2 Flow Rate FiO2 12/17/16 16:19 88 12/17/16 15:48 97.7 16 82/48 97 12/17/16 04:56 Room Air Intake and Output 12/16/16 12/16/16 12/17/16 14:59 22:59 06:59 Intake Total 450 ml Output Total 300 ml 950 ml Balance 150 ml -950 ml Exam Constitutional: alert Psych: nl mood/affect Head: other Eyes: EOMI, nl sclera ENMT: nl external ears & nose Neck: non-tender Respiratory: clear to auscultation Cardiovascular: regular rate and rhythm Gastrointestinal: soft Musculoskeletal: nl extremities to inspection 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: nl speech Skin: other (left abdomen dressing -PD site leak) Lymph: nontender Results Result Diagram: 12/17/16 1420 12/17/16 0546 Results 24 hrs Laboratory Tests Test 12/16/16 17:39 12/16/16 22:13 12/17/16 05:46 12/17/16 07:46 Bedside Glucose 126 164 85 Anion Gap 19 H Band Neutrophils % 9.0 H Basophils # 0.1 Basophils % 2.0 Blood Urea Nitrogen 41 H Calcium Level 6.8 L Carbon Dioxide Level 23 Chloride Level 92 L Creatinine 6.14 H Differential Comment Eosinophils # 0.3 Eosinophils % 6.0 Giant Platelets FEW Glucose Level 75 Hematocrit 29.3 L Hemoglobin 9.5 L Lymphocytes # 1.1 Lymphocytes % 25.0 Mean Corpuscular Hemoglobin 29.1 Mean Corpuscular Hemoglobin Concent 32.4 Mean Corpuscular Volume 89.6 Mean Platelet Volume Metamyelocytes # 0.0 Metamyelocytes % 1.0 H Monocytes # 0.5 Monocytes % 11.0 Neutrophils # 2.1 Neutrophils % 46.0 Nucleated Red Blood Cells # Nucleated Red Blood Cells % Platelet Count 9 #*L Platelet Estimate PLT APPEAR DECREASED Potassium Level 4.4 Red Blood Count 3.27 L Red Cell Distribution Width 19.7 H Smudge Cells Few Sodium Level 130 L White Blood Count 4.5 L Test 12/17/16 09:35 12/17/16 11:57 12/17/16 14:20 Basophils # 0.0 0.0 Basophils % 0.2 0.6 Eosinophils # 0.2 0.2 Eosinophils % 4.0 3.6 Hematocrit 30.1 L 29.1 L Hemoglobin 9.5 L 9.4 L Lymphocytes # 1.4 1.2 Lymphocytes % 29.8 23.6 Mean Corpuscular Hemoglobin 28.4 L 29.0 Mean Corpuscular Hemoglobin Concent 31.6 L 32.3 Mean Corpuscular Volume 90.1 89.8 Mean Platelet Volume Monocytes # 0.6 0.6 Monocytes % 13.1 H 11.3 H Neutrophils # 2.5 3.1 Neutrophils % 52.3 60.3 Nucleated Red Blood Cells # 0.0 0.0 Nucleated Red Blood Cells % 0.0 0.0 Platelet Count 10 *L 8 *L Red Blood Count 3.34 L 3.24 L Red Cell Distribution Width 19.9 H 19.4 H White Blood Count 4.7 L 5.1 Bedside Glucose 80 Activated Partial Thromboplast Time 40.2 H D-Dimer 3189.01 H D-Dimer Comment Fibrinogen 197.0 L HIV (1&2) Antibody NEGATIVE Hepatitis B Core Total Antibody NEGATIVE Hepatitis B Surface Antigen NEGATIVE Hepatitis C Antibody NEGATIVE INR International Normalized Ratio 1.21 Plasma Fibrin Degradation Products <10 Prothrombin Time 15.4 H Prothrombin Time Ratio 1.2 Thrombin Time Pending Medications Medications Current Medications Lorazepam (Ativan) 0.5 mg Q8H PRN PO ANXIETY Last administered on 12/17/16 01: 59; Admin Dose 0.5 MG; Start 11/20/16 at 12:00 Ondansetron HCl (Zofran Inj) 4 mg Q6H PRN IV NAUSEA AND/OR VOMITING Last administered on 11/23/16 05:32; Admin Dose 4 MG; Start 11/20/16 at 12:00 Nitroglycerin (Nitroglycerin (Sl Tab) 0.4 Mg) 1 tab Q5M PRN SL CHEST PAIN; Start 11/20/16 at 12:00 Zolpidem Tartrate (Ambien) 5 mg QHS PRN PO INSOMNIA; Start 11/20/16 at 12:00 Pantoprazole (Protonix Tab) 40 mg DAILY@06 PO Last administered on 12/17/16 06 :59; Admin Dose 40 MG; Start 11/21/16 at 06:00 Miscellaneous Information 1 ea NOTE XX ; Start 11/20/16 at 12:30 Glucose (Glutose) 15 gm Q15M PRN PO DECREASED GLUCOSE; Start 11/20/16 at 12:30 Glucose (Glutose) 22.5 gm Q15M PRN PO DECREASED GLUCOSE; Start 11/20/16 at 12: 30 Dextrose (D50w Syringe) 25 ml Q15M PRN IV DECREASED GLUCOSE; Start 11/20/16 at 12:30 Dextrose (D50w Syringe) 50 ml Q15M PRN IV DECREASED GLUCOSE; Start 11/20/16 at 12:30 Glucagon (Glucagen) 1 mg Q15M PRN IM DECREASED GLUCOSE; Start 11/20/16 at 12:30 Glucose (Glutose) 15 gm Q15M PRN BUCCAL DECREASED GLUCOSE Last administered on 12/12/16 08:29; Admin Dose 15 GM; Start 11/20/16 at 12:30 Levothyroxine Sodium (Synthroid) 125 mcg DAILY@06 PO Last administered on 06:59; Admin Dose 125 MCG; Start 11/22/16 at 06:00 Guaifenesin (Robitussin Liquid Cup) 100 mg Q6H PRN PO COUGH Last administered on 12/16/16 11:44; Admin Dose 100 MG; Start 11/23/16 at 16:30 IV Flush (NS 10 ml) 10 ml PRN PRN IV IV PROTOCOL; Start 11/24/16 at 15:30 Insulin Glargine 15 unit 15 unit HS SC Last administered on 12/16/16 21:00; Admin Dose 15 UNIT; Start 11/26/16 at 21:00 Albumin Human (Albumin Human 25%) 100 ml @ 100 mls/hr ONCE PRN IV after paracentesis; Start 12/02/16 at 02:00 Morphine Sulfate (morphine) 2 mg Q3H PRN IV PAIN LEVEL 7-10 Last administered on 12/17/16 14:46; Admin Dose 2 MG; Start 12/04/16 at 10:00 Apixaban (Eliquis) 2.5 mg BID PO Last administered on 12/17/16 09:50; Admin Dose 2.5 MG; Start 12/08/16 at 21:00 Acetaminophen (Tylenol Tab) 650 mg Q4H PRN PO PAIN LEVEL 1-3 OR FEVER Last administered on 12/11/16 01:53; Admin Dose 650 MG; Start 12/10/16 at 13:00 Midodrine (Proamatine) 5 mg TID PRN PO sbp<80; Start 12/15/16 at 21:00 Doxycycline Hyclate (Vibramycin) 100 mg BID PO ; Start 12/17/16 at 21:00; Stop 01/19/17 at 22:00 Pyridoxine HCl (Vitamin B6) 50 mg DAILY PO ; Start 12/17/16 at 16:30 PEBBLES REYES Dec 17, 2016 17:40
--- NOTE | 2016-12-17 18:22 | PN ---
Date/Time of Note Date/Time of Note DATE: 12/17/16 TIME: 18:20 Assessment/Plan VTE Prophylaxis VTE Prophylaxis Intervention: other Assessment/Plan Assessment/Plan cmp esrd cirrohsis hd per plan Exam/Review of Systems Vital Signs Vitals Vital Signs Date Time Temp Pulse Resp B/P Pulse Ox O2 Delivery O2 Flow Rate FiO2 12/17/16 16:19 88 12/17/16 15:48 97.7 16 82/48 97 12/17/16 04:56 Room Air Intake and Output 12/16/16 12/16/16 12/17/16 15:00 23:00 07:00 Intake Total 450 ml Output Total 300 ml 950 ml Balance 150 ml -950 ml Exam Constitutional: alert, oriented Head: normocephalic Neck: supple Respiratory: clear to auscultation Cardiovascular: regular rate and rhythm Gastrointestinal: distended, soft Extremities: edema Results Result Diagram: 12/17/16 1420 12/17/16 0546 Results 24 hrs Laboratory Tests Test 12/16/16 22:13 12/17/16 05:46 12/17/16 07:46 12/17/16 09:35 Bedside Glucose 164 85 Anion Gap 19 H Band Neutrophils % 9.0 H Basophils # 0.1 0.0 Basophils % 2.0 0.2 Blood Urea Nitrogen 41 H Calcium Level 6.8 L Carbon Dioxide Level 23 Chloride Level 92 L Creatinine 6.14 H Differential Comment Eosinophils # 0.3 0.2 Eosinophils % 6.0 4.0 Giant Platelets FEW Glucose Level 75 Hematocrit 29.3 L 30.1 L Hemoglobin 9.5 L 9.5 L Lymphocytes # 1.1 1.4 Lymphocytes % 25.0 29.8 Mean Corpuscular Hemoglobin 29.1 28.4 L Mean Corpuscular Hemoglobin Concent 32.4 31.6 L Mean Corpuscular Volume 89.6 90.1 Mean Platelet Volume Metamyelocytes # 0.0 Metamyelocytes % 1.0 H Monocytes # 0.5 0.6 Monocytes % 11.0 13.1 H Neutrophils # 2.1 2.5 Neutrophils % 46.0 52.3 Nucleated Red Blood Cells # 0.0 Nucleated Red Blood Cells % 0.0 Platelet Count 9 #*L 10 *L Platelet Estimate PLT APPEAR DECREASED Potassium Level 4.4 Red Blood Count 3.27 L 3.34 L Red Cell Distribution Width 19.7 H 19.9 H Smudge Cells Few Sodium Level 130 L White Blood Count 4.5 L 4.7 L Test 12/17/16 11:57 12/17/16 14:20 Bedside Glucose 80 Activated Partial Thromboplast Time 40.2 H Basophils # 0.0 Basophils % 0.6 D-Dimer 3189.01 H D-Dimer Comment Eosinophils # 0.2 Eosinophils % 3.6 Fibrinogen 197.0 L HIV (1&2) Antibody NEGATIVE Hematocrit 29.1 L Hemoglobin 9.4 L Hepatitis B Core Total Antibody NEGATIVE Hepatitis B Surface Antigen NEGATIVE Hepatitis C Antibody NEGATIVE INR International Normalized Ratio 1.21 Lymphocytes # 1.2 Lymphocytes % 23.6 Mean Corpuscular Hemoglobin 29.0 Mean Corpuscular Hemoglobin Concent 32.3 Mean Corpuscular Volume 89.8 Mean Platelet Volume Monocytes # 0.6 Monocytes % 11.3 H Neutrophils # 3.1 Neutrophils % 60.3 Nucleated Red Blood Cells # 0.0 Nucleated Red Blood Cells % 0.0 Plasma Fibrin Degradation Products <10 Platelet Count 8 *L Prothrombin Time 15.4 H Prothrombin Time Ratio 1.2 Red Blood Count 3.24 L Red Cell Distribution Width 19.4 H Thrombin Time Pending White Blood Count 5.1 Medications Medications Current Medications Lorazepam (Ativan) 0.5 mg Q8H PRN PO ANXIETY Last administered on 12/17/16 01: 59; Admin Dose 0.5 MG; Start 11/20/16 at 12:00 Ondansetron HCl (Zofran Inj) 4 mg Q6H PRN IV NAUSEA AND/OR VOMITING Last administered on 11/23/16 05:32; Admin Dose 4 MG; Start 11/20/16 at 12:00 Nitroglycerin (Nitroglycerin (Sl Tab) 0.4 Mg) 1 tab Q5M PRN SL CHEST PAIN; Start 11/20/16 at 12:00 Zolpidem Tartrate (Ambien) 5 mg QHS PRN PO INSOMNIA; Start 11/20/16 at 12:00 Pantoprazole (Protonix Tab) 40 mg DAILY@06 PO Last administered on 12/17/16 06 :59; Admin Dose 40 MG; Start 11/21/16 at 06:00 Miscellaneous Information 1 ea NOTE XX ; Start 11/20/16 at 12:30 Glucose (Glutose) 15 gm Q15M PRN PO DECREASED GLUCOSE; Start 11/20/16 at 12:30 Glucose (Glutose) 22.5 gm Q15M PRN PO DECREASED GLUCOSE; Start 11/20/16 at 12: 30 Dextrose (D50w Syringe) 25 ml Q15M PRN IV DECREASED GLUCOSE; Start 11/20/16 at 12:30 Dextrose (D50w Syringe) 50 ml Q15M PRN IV DECREASED GLUCOSE; Start 11/20/16 at 12:30 Glucagon (Glucagen) 1 mg Q15M PRN IM DECREASED GLUCOSE; Start 11/20/16 at 12:30 Glucose (Glutose) 15 gm Q15M PRN BUCCAL DECREASED GLUCOSE Last administered on 12/12/16 08:29; Admin Dose 15 GM; Start 11/20/16 at 12:30 Levothyroxine Sodium (Synthroid) 125 mcg DAILY@06 PO Last administered on 06:59; Admin Dose 125 MCG; Start 11/22/16 at 06:00 Guaifenesin (Robitussin Liquid Cup) 100 mg Q6H PRN PO COUGH Last administered on 12/16/16 11:44; Admin Dose 100 MG; Start 11/23/16 at 16:30 IV Flush (NS 10 ml) 10 ml PRN PRN IV IV PROTOCOL; Start 11/24/16 at 15:30 Insulin Glargine 15 unit 15 unit HS SC Last administered on 12/16/16 21:00; Admin Dose 15 UNIT; Start 11/26/16 at 21:00 Albumin Human (Albumin Human 25%) 100 ml @ 100 mls/hr ONCE PRN IV after paracentesis; Start 12/02/16 at 02:00 Morphine Sulfate (morphine) 2 mg Q3H PRN IV PAIN LEVEL 7-10 Last administered on 12/17/16 14:46; Admin Dose 2 MG; Start 12/04/16 at 10:00 Acetaminophen (Tylenol Tab) 650 mg Q4H PRN PO PAIN LEVEL 1-3 OR FEVER Last administered on 12/11/16 01:53; Admin Dose 650 MG; Start 12/10/16 at 13:00 Midodrine (Proamatine) 5 mg TID PRN PO sbp<80; Start 12/15/16 at 21:00 Doxycycline Hyclate (Vibramycin) 100 mg BID PO ; Start 12/17/16 at 21:00; Stop 01/19/17 at 22:00 Pyridoxine HCl 50 mg 50 mg DAILY PO ; Start 12/17/16 at 16:30 Sodium Chloride (NS) 1,000 ml @ 40 mls/hr Q24H IV ; Start 12/17/16 at 17:30 BRENDON MARSHALL MD Dec 17, 2016 18:22
[2016-12-17] MEDS: PYRIDOXINE 50 MG TAB PO SCH (18:55)
[2016-12-17] MEDS: DOXYCYCLINE 100 MG TAB PO SCH (21:52)
[2016-12-17] MEDS: INSULIN GLARGINE [LANtus] 3 ML PEN SC SCH (22:37)
[2016-12-18] VITALS (19 sets, daily range): BP systolic 80–104; BP diastolic 40–62; PULSE 78–105; RESP 16–18
[2016-12-18] MEDS: morphine 2 MG INJ IV PRN ×6 (01:37→18:51)
[2016-12-18] MEDS: LEVOTHYROXINE 125 MCG TAB PO SCH (06:15)
[2016-12-18] MEDS: PANTOPRAZOLE (EC) 40 MG TAB PO SCH (06:15)
[2016-12-18 06:52] LABS: ADD SCAN DIFF NO
[2016-12-18 07:08] LABS: ABNORMAL IP MESSAGE 1; HEMATOCRIT 30.7 % (42.0-52.0); HEMOGLOBIN 9.8 g/dl (14.0-18.0); MEAN CORPUSCULAR HEMOGLOBIN 29.1 pg (29.0-33.0); MEAN CORPUSCULAR HGB CONC 31.9 g/dl (32.0-37.0); MEAN CORPUSCULAR VOLUME 91.1 fl (82.0-101.0); MEAN PLATELET VOLUME 10.7 fl (7.4-10.4); PLATELET COUNT 36 10^3/UL (140-415); RED BLOOD COUNT 3.37 10^6/ul (4.70-6.10); RED CELL DISTRIBUTION WIDTH 19.7 % (11.5-14.5); WHITE BLOOD COUNT 6.5 10^3/ul (4.8-10.8)
[2016-12-18 07:13] LABS: POTASSIUM 4.9 mmol/L (3.5-5.1)
[2016-12-18 07:16] LABS: CREATININE 7.36 mg/dl (0.61-1.24)
[2016-12-18 07:17] LABS: CALCIUM 6.5 mg/dl (8.4-10.2)
[2016-12-18] MEDS: INSULIN ASPART [NOVOLOG] 3 ML PEN SC SCH ×4 (07:52→21:00)
[2016-12-18] MEDS: DOXYCYCLINE 100 MG TAB PO SCH ×2 (08:00→21:03)
[2016-12-18] MEDS: PYRIDOXINE 50 MG TAB PO SCH (08:06)
--- NOTE | 2016-12-18 08:25 | PN ---
DATE: 12/15/2016 INFECTIOUS DISEASE PROGRESS NOTE SUBJECTIVE: Patient just finished hemodialysis, lying comfortably in bed. Afebrile, still has sign ificant pain at the left lower quadrant of his abdomen where the catheter placement is. ANTIMICROBIALS: He is on IV vancomycin, started yesterday. INDWELLINGS: Right upper extremity AV fistula, left upper extremity PICC line and intra-abdominal P leurX catheter. PHYSICAL EXAMINATION: GENERAL: This is a chronically ill-appearing, elderly man who is alert, in no distress. HEENT: Head atraumatic, normocephalic. Sclerae anicteric. Buccal mucosa pink, dry. NECK: Supple, trachea midline. CHEST: Rise symmetrical. Breath sounds diminished. HEART: S1, S2. ABDOMEN: Obese, distended, soft. Bowel tones present. EXTREMITIES: Without cyanosis. Please nontender. ASSESSMENT: 1. Systemic inflammatory response syndrome. 2. Spontaneous bacterial peritonitis with abdominal fluid culture growing coagulase-negative Staphy lococcus species, started on vancomycin. 3. End-stage renal disease, hemodialysis dependent. 4. Chronic kidney disease with recurrent ascites, status post PleurX catheter placement in the past . 5. History of coronary artery bypass graft. 6. Cachexia. PLAN: The patient remains clinically stable as per discussion with the patient yesterday and Dr. Terrie rice recommended discontinuation of abdominal PleurX catheter. Dictated By: SMITHA HERNANDEZ EDUCATION ASSISTANT for [facility]/NTS Conf#: [id number] DID#: [id number]
[2016-12-18 09:28] LABS: EOSINOPHILS # 0.3 10^3/ul (0.0-0.5); LYMPHOCYTES # 0.9 10^3/ul (0.8-2.9); MONOCYTE # 0.3 10^3/ul (0.3-0.9); NEUTROPHIL # 4.9 10^3/ul (1.6-7.5)
--- NOTE | 2016-12-18 14:55 | CONS ---
Date/Time of Note Date/Time of Note DATE: 12/18/16 TIME: 14:54 Assessment/Plan Assessment/Plan Additional Assessment/Plan Hypotension, intermittent AV fistula stenosis status post venoplasty Acute decompensated systolic and diastolic heart failure Cardiomyopathy, likely ischemic and nonischemic in origin with an ejection fraction less than 20%. (Denied cardiac transplant at [facility]) Biventricular pacemaker and ICD Mitral and tricuspid valve regurgitation. Severe pulmonary hypertension. End-stage renal disease on hemodialysis Ascites status post paracentesis Atrial fibrillation -Blood pressure trend overall stable, fluid management via hemodialysis as per our nephrology colleagues. Consultation Date/Type/Reason Admit Date/Time Nov 20, 2016 at 09:34 Initial Consult Date 11/21/16 Type of Consultation: cv Referring Provider: DEMETRA BRUNO MD 24 HR Interval Summary Free Text/Dictation Denies shortness of breath, denies dizziness or chest pain Exam/Review of Systems Vital Signs Vitals Vital Signs Date Time Temp Pulse Resp B/P Pulse Ox O2 Delivery O2 Flow Rate FiO2 12/18/16 12:49 89 16 95/61 12/18/16 12:00 97.9 94 12/18/16 04:40 Room Air Intake and Output 12/17/16 12/17/16 12/18/16 15:00 23:00 07:00 Intake Total 900 ml Output Total 600 ml 850 ml Balance -600 ml 50 ml Exam Sitting up eating lunch, no apparent distress Constitutional: alert, frail, oriented Head: normocephalic Neck: supple Respiratory: other (Coarse breath sounds bilaterally, no wheezing) Cardiovascular: other (S1-S2 heard), regular rate and rhythm Gastrointestinal: bowel sounds, distended, non-tender, other (No guarding), soft Extremities: edema Results Result Diagram: 12/18/16 0535 12/18/16 0535 Results 24 hrs Laboratory Tests Test 12/17/16 18:54 12/17/16 21:59 12/18/16 05:35 12/18/16 07:51 Bedside Glucose 96 102 76 Anion Gap 18 H Blood Urea Nitrogen 53 H Calcium Level 6.5 L Carbon Dioxide Level 23 Chloride Level 93 L Creatinine 7.36 H Differential Comment MANUAL DIFF Eosinophils # 0.3 Eosinophils % 5.0 Glucose Level 71 Hematocrit 30.7 L Hemoglobin 9.8 L Lymphocytes # 0.9 Lymphocytes % 14.0 L Mean Corpuscular Hemoglobin 29.1 Mean Corpuscular Hemoglobin Concent 31.9 L Mean Corpuscular Volume 91.1 Mean Platelet Volume 10.7 H Monocytes # 0.3 Monocytes % 4.0 Neutrophils # 4.9 Neutrophils % 75.0 Platelet Count 36 #L Potassium Level 4.9 Reactive Lymphocytes % 2.0 Red Blood Count 3.37 L Red Cell Distribution Width 19.7 H Sodium Level 129 L White Blood Count 6.5 # Test 12/18/16 11:31 Bedside Glucose 112 Medications Medications Current Medications Lorazepam (Ativan) 0.5 mg Q8H PRN PO ANXIETY Last administered on 12/17/16 01: 59; Admin Dose 0.5 MG; Start 11/20/16 at 12:00 Ondansetron HCl (Zofran Inj) 4 mg Q6H PRN IV NAUSEA AND/OR VOMITING Last administered on 11/23/16 05:32; Admin Dose 4 MG; Start 11/20/16 at 12:00 Nitroglycerin (Nitroglycerin (Sl Tab) 0.4 Mg) 1 tab Q5M PRN SL CHEST PAIN; Start 11/20/16 at 12:00 Zolpidem Tartrate (Ambien) 5 mg QHS PRN PO INSOMNIA; Start 11/20/16 at 12:00 Pantoprazole (Protonix Tab) 40 mg DAILY@06 PO Last administered on 12/18/16 06 :15; Admin Dose 40 MG; Start 11/21/16 at 06:00 Miscellaneous Information 1 ea NOTE XX ; Start 11/20/16 at 12:30 Glucose (Glutose) 15 gm Q15M PRN PO DECREASED GLUCOSE; Start 11/20/16 at 12:30 Glucose (Glutose) 22.5 gm Q15M PRN PO DECREASED GLUCOSE; Start 11/20/16 at 12: 30 Dextrose (D50w Syringe) 25 ml Q15M PRN IV DECREASED GLUCOSE; Start 11/20/16 at 12:30 Dextrose (D50w Syringe) 50 ml Q15M PRN IV DECREASED GLUCOSE; Start 11/20/16 at 12:30 Glucagon (Glucagen) 1 mg Q15M PRN IM DECREASED GLUCOSE; Start 11/20/16 at 12:30 Glucose (Glutose) 15 gm Q15M PRN BUCCAL DECREASED GLUCOSE Last administered on 12/12/16 08:29; Admin Dose 15 GM; Start 11/20/16 at 12:30 Levothyroxine Sodium (Synthroid) 125 mcg DAILY@06 PO Last administered on 06:15; Admin Dose 125 MCG; Start 11/22/16 at 06:00 Guaifenesin (Robitussin Liquid Cup) 100 mg Q6H PRN PO COUGH Last administered on 12/16/16 11:44; Admin Dose 100 MG; Start 11/23/16 at 16:30 IV Flush (NS 10 ml) 10 ml PRN PRN IV IV PROTOCOL; Start 11/24/16 at 15:30 Insulin Glargine 15 unit 15 unit HS SC Last administered on 12/17/16 22:37; Admin Dose 15 UNIT; Start 11/26/16 at 21:00 Albumin Human (Albumin Human 25%) 100 ml @ 100 mls/hr ONCE PRN IV after paracentesis; Start 12/02/16 at 02:00 Morphine Sulfate (morphine) 2 mg Q3H PRN IV PAIN LEVEL 7-10 Last administered on 12/18/16 12:49; Admin Dose 2 MG; Start 12/04/16 at 10:00 Acetaminophen (Tylenol Tab) 650 mg Q4H PRN PO PAIN LEVEL 1-3 OR FEVER Last administered on 12/11/16 01:53; Admin Dose 650 MG; Start 12/10/16 at 13:00 Midodrine (Proamatine) 5 mg TID PRN PO sbp<80; Start 12/15/16 at 21:00 Doxycycline Hyclate (Vibramycin) 100 mg BID PO Last administered on 12/18/16 08:00; Admin Dose 100 MG; Start 12/17/16 at 21:00; Stop 01/19/17 at 22:00 Pyridoxine HCl 50 mg 50 mg DAILY PO Last administered on 12/18/16 08:06; Admin Dose 50 MG; Start 12/17/16 at 16:30 Sodium Chloride (NS) 1,000 ml @ 40 mls/hr Q24H IV Last administered on 17:30; Admin Dose 40 MLS/HR; Start 12/17/16 at 17:30 Harpreet Cee DO Dec 18, 2016 14:55
--- NOTE | 2016-12-18 15:53 | CONS ---
Date/Time of Note Date/Time of Note DATE: 12/18/16 TIME: 15:12 Assessment/Plan Assessment/Plan Chief Complaint/Hosp Course 66 yo male with ESRD on HD and cirrhosis being treated for sepsis secondary to spontaneous bacterial peritonitis from and infected catheter. Since starting on antibiotics, namely vancomycin, patient's platelets have dramatically dropped in the absence of any obvious bleed. Vancomycin has since been held and pt is being continued on Doxycycline. Pt was given 1 dose of Heparin when he was first admitted. It is therefore worth ruling out HIT as a contributing cause of the thrombocytopenia. # Thrombocytopenia - likely secondary to cirrhosis and portal HTN in addition to effects of Vancomycin and underlying sepsis -agree with holding Vancomycin and continuing with Doxycycline -will order HIT panel -peripheral smear review not consistent with TTP. But will order LDH to complete workup -HIV and Hep panel are negative and therefore not contributing factors to thrombocytopenia -DIC panel ordered. INR at 1.2 which does not support DIC -continue to hold all anticoagulation -transfuse if platelets < 10, < 20 if febrile and < 50 if bleeding Approximately 40 min were spent at patient's bedside and in coordination of his care Problems: Consultation Date/Type/Reason Admit Date/Time Nov 20, 2016 at 09:34 Date of Consultation: Dec 18, 2016 Type of Consultation: hematology Reason for Consultation thrombocytopenia Referring Provider: DEMETRA BRUNO MD Hx of Present Illness 66-year-old male with history of coronary artery disease status post CABG, ESRD on HD, pacemaker, patient with end-stage renal failure on dialysis. The patient presented to the ER with lower extremity edema and a distended abdomen due to recurrent ascites and has since undergone paracentesis with removal of 8 L of ascites fluid. Patient is currently being treated for spontaneous bacterial peritonitis with abdominal fluid culture growing coagulase-negative Staphylococcus species and has been started on vancomycin. He also continues on HD. On admission on 11/21 patient's platelets were noted to be in the 260's. Over the last 2 weeks , the platelets have steadily declined and yesterday were down to 8. Patient was given 1 unit of Platelets and has responded well. Platelets are now in the 30's. Review of records reveals on 11/21 pat was given Heparin x 2 doses. Hepatitis panel was drawn and is negative. Pt has been given several doses of antibiotics including vancomycin first dose given on 12/14-, Ceftriaxone 12/11- and Doxycycline on 12/17- current. Of note patient platelets appear to have started to decline on 12/14. Pt was on Eliquis before but that is currently being held. Constitutional: improved Eyes: no complaints ENT: no complaints Respiratory: no complaints Cardiovascular: no complaints Gastrointestinal: other (L), pain Genitourinary: no complaints Musculoskeletal: no complaints Skin: no complaints Neurologic: no complaints Endocrine: no complaints Lymphatic: no complaints Psychological: nl mood/affect, no complaints Immunologic: no complaints Past Medical History coronary artery disease status post CABG ESRD on HD status post AICD placement. patient with end-stage renal failure on dialysis status post right upper extremity AV shunt creation Medical History: congestive heart failure, coronary artery disease, diabetes, hypothyroid, renal disease (ESRD), other (Portal HTN) Past Surgical History Past Surgical Hx: other (RUE AVF, CABG, L chest AICD) Family History Significant Family History: no pertinent family hx Social History Patient lives at home. The patient is a former smoker and a former alcohol user. The patient currently denies any tobacco use, denies any alcohol use, denies any illicit drug use. Alcohol Use: sober Smoking Status: Former smoker Drug Use: none Exam/Review of Systems Vital Signs Vitals Vital Signs Date Time Temp Pulse Resp B/P Pulse Ox O2 Delivery O2 Flow Rate FiO2 12/18/16 12:49 89 16 95/61 12/18/16 12:00 97.9 94 12/18/16 04:40 Room Air Intake and Output 12/17/16 12/17/16 12/18/16 15:00 23:00 07:00 Intake Total 900 ml Output Total 600 ml 850 ml Balance -600 ml 50 ml Exam Constitutional: oriented Head: normocephalic Eyes: nl conjunctiva ENMT: nl external ears & nose Neck: non-tender, supple Respiratory: clear to auscultation, normal air movement Cardiovascular: regular rate and rhythm Gastrointestinal: other (ostomy bag collecting ascites fluid, distended), tender Musculoskeletal: nl extremities to inspection, nl gait and stance Extremities: normal pulses Results Result Diagram: 12/18/16 0535 12/18/16 0535 Results 24 hrs Laboratory Tests Test 12/17/16 18:54 12/17/16 21:59 12/18/16 05:35 12/18/16 07:51 Bedside Glucose 96 102 76 Anion Gap 18 H Blood Urea Nitrogen 53 H Calcium Level 6.5 L Carbon Dioxide Level 23 Chloride Level 93 L Creatinine 7.36 H Differential Comment MANUAL DIFF Eosinophils # 0.3 Eosinophils % 5.0 Glucose Level 71 Hematocrit 30.7 L Hemoglobin 9.8 L Lymphocytes # 0.9 Lymphocytes % 14.0 L Mean Corpuscular Hemoglobin 29.1 Mean Corpuscular Hemoglobin Concent 31.9 L Mean Corpuscular Volume 91.1 Mean Platelet Volume 10.7 H Monocytes # 0.3 Monocytes % 4.0 Neutrophils # 4.9 Neutrophils % 75.0 Platelet Count 36 #L Potassium Level 4.9 Reactive Lymphocytes % 2.0 Red Blood Count 3.37 L Red Cell Distribution Width 19.7 H Sodium Level 129 L White Blood Count 6.5 # Test 12/18/16 11:31 Bedside Glucose 112 Medications Medications Current Medications Lorazepam (Ativan) 0.5 mg Q8H PRN PO ANXIETY Last administered on 12/17/16 01: 59; Admin Dose 0.5 MG; Start 11/20/16 at 12:00 Ondansetron HCl (Zofran Inj) 4 mg Q6H PRN IV NAUSEA AND/OR VOMITING Last administered on 11/23/16 05:32; Admin Dose 4 MG; Start 11/20/16 at 12:00 Nitroglycerin (Nitroglycerin (Sl Tab) 0.4 Mg) 1 tab Q5M PRN SL CHEST PAIN; Start 11/20/16 at 12:00 Zolpidem Tartrate (Ambien) 5 mg QHS PRN PO INSOMNIA; Start 11/20/16 at 12:00 Pantoprazole (Protonix Tab) 40 mg DAILY@06 PO Last administered on 12/18/16 06 :15; Admin Dose 40 MG; Start 11/21/16 at 06:00 Miscellaneous Information 1 ea NOTE XX ; Start 11/20/16 at 12:30 Glucose (Glutose) 15 gm Q15M PRN PO DECREASED GLUCOSE; Start 11/20/16 at 12:30 Glucose (Glutose) 22.5 gm Q15M PRN PO DECREASED GLUCOSE; Start 11/20/16 at 12: 30 Dextrose (D50w Syringe) 25 ml Q15M PRN IV DECREASED GLUCOSE; Start 11/20/16 at 12:30 Dextrose (D50w Syringe) 50 ml Q15M PRN IV DECREASED GLUCOSE; Start 11/20/16 at 12:30 Glucagon (Glucagen) 1 mg Q15M PRN IM DECREASED GLUCOSE; Start 11/20/16 at 12:30 Glucose (Glutose) 15 gm Q15M PRN BUCCAL DECREASED GLUCOSE Last administered on 12/12/16 08:29; Admin Dose 15 GM; Start 11/20/16 at 12:30 Levothyroxine Sodium (Synthroid) 125 mcg DAILY@06 PO Last administered on 06:15; Admin Dose 125 MCG; Start 11/22/16 at 06:00 Guaifenesin (Robitussin Liquid Cup) 100 mg Q6H PRN PO COUGH Last administered on 12/16/16 11:44; Admin Dose 100 MG; Start 11/23/16 at 16:30 IV Flush (NS 10 ml) 10 ml PRN PRN IV IV PROTOCOL; Start 11/24/16 at 15:30 Insulin Glargine 15 unit 15 unit HS SC Last administered on 12/17/16 22:37; Admin Dose 15 UNIT; Start 11/26/16 at 21:00 Albumin Human (Albumin Human 25%) 100 ml @ 100 mls/hr ONCE PRN IV after paracentesis; Start 12/02/16 at 02:00 Morphine Sulfate (morphine) 2 mg Q3H PRN IV PAIN LEVEL 7-10 Last administered on 12/18/16 12:49; Admin Dose 2 MG; Start 12/04/16 at 10:00 Acetaminophen (Tylenol Tab) 650 mg Q4H PRN PO PAIN LEVEL 1-3 OR FEVER Last administered on 12/11/16 01:53; Admin Dose 650 MG; Start 12/10/16 at 13:00 Midodrine (Proamatine) 5 mg TID PRN PO sbp<80; Start 12/15/16 at 21:00 Doxycycline Hyclate (Vibramycin) 100 mg BID PO Last administered on 12/18/16 08:00; Admin Dose 100 MG; Start 12/17/16 at 21:00; Stop 01/19/17 at 22:00 Pyridoxine HCl 50 mg 50 mg DAILY PO Last administered on 12/18/16 08:06; Admin Dose 50 MG; Start 12/17/16 at 16:30 Sodium Chloride (NS) 1,000 ml @ 40 mls/hr Q24H IV Last administered on t 17:30; Admin Dose 40 MLS/HR; Start 12/17/16 at 17:30 OTILIO VELASQUEZ M.D. Dec 18, 2016 15:23
--- NOTE | 2016-12-18 16:40 | CONS ---
Date/Time of Note Date/Time of Note DATE: 12/18/16 TIME: 16:39 Assessment/Plan Assessment/Plan Additional Assessment/Plan ditional Assessment/Plan Additional Assessment/Plan ASSESSMENT: 1. Refractory ascites. 2. Ischemic cardiomyopathy. 3. End-stage renal disease. 4. Cirrhosis of liver. 5.s/p pleurex drain for ascites,3 liters removed today 6.leaking around Pleurex 7. left hip pain 8. SBP,wbc 3600 9.hypotension 10 thrombocytopenia Plan drain ascitic fluid PRN PT antibiotic as per ID d/c drainage catheter,done continue antibiotic Consultation Date/Type/Reason Admit Date/Time Nov 20, 2016 at 09:34 Initial Consult Date 11/21/16 Type of Consultation: hematology Referring Provider: DEMETRA BRUNO MD 24 HR Interval Summary Free Text/Dictation no bleeding Exam/Review of Systems Vital Signs Vitals Vital Signs Date Time Temp Pulse Resp B/P Pulse Ox O2 Delivery O2 Flow Rate FiO2 12/18/16 16:14 83 12/18/16 15:23 97.3 18 80/51 97 12/18/16 04:40 Room Air Intake and Output 12/17/16 12/17/16 12/18/16 15:00 23:00 07:00 Intake Total 900 ml Output Total 600 ml 850 ml Balance -600 ml 50 ml Exam Constitutional: alert, oriented, well developed Psych: nl mood/affect, no complaints Head: atraumatic, normocephalic Eyes: EOMI, PERRL, nl conjunctiva, nl lids, nl sclera ENMT: nl external ears & nose, nl lips & teeth, nl nasal mucosa & septum Neck: non-tender, supple Respiratory: clear to auscultation, normal air movement Cardiovascular: nl pulses, regular rate and rhythm Gastrointestinal: nl liver, spleen, non-tender, soft Musculoskeletal: nl extremities to inspection, nl gait and stance Extremities: normal pulses 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: NUCLEAR PROCESS ENGINEER 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, nl mental status, nl speech, nl strength Skin: nl turgor, No rash or lesions Lymph: nl lymph nodes Results Result Diagram: 12/18/16 0535 12/18/16 0535 Results 24 hrs Laboratory Tests Test 12/17/16 18:54 12/17/16 21:59 12/18/16 05:35 12/18/16 07:51 Bedside Glucose 96 102 76 Anion Gap 18 H Blood Urea Nitrogen 53 H Calcium Level 6.5 L Carbon Dioxide Level 23 Chloride Level 93 L Creatinine 7.36 H Differential Comment MANUAL DIFF Eosinophils # 0.3 Eosinophils % 5.0 Glucose Level 71 Hematocrit 30.7 L Hemoglobin 9.8 L Lymphocytes # 0.9 Lymphocytes % 14.0 L Mean Corpuscular Hemoglobin 29.1 Mean Corpuscular Hemoglobin Concent 31.9 L Mean Corpuscular Volume 91.1 Mean Platelet Volume 10.7 H Monocytes # 0.3 Monocytes % 4.0 Neutrophils # 4.9 Neutrophils % 75.0 Platelet Count 36 #L Potassium Level 4.9 Reactive Lymphocytes % 2.0 Red Blood Count 3.37 L Red Cell Distribution Width 19.7 H Sodium Level 129 L White Blood Count 6.5 # Test 12/18/16 11:31 Bedside Glucose 112 Medications Medications Current Medications Lorazepam (Ativan) 0.5 mg Q8H PRN PO ANXIETY Last administered on 12/17/16 01: 59; Admin Dose 0.5 MG; Start 11/20/16 at 12:00 Ondansetron HCl (Zofran Inj) 4 mg Q6H PRN IV NAUSEA AND/OR VOMITING Last administered on 11/23/16 05:32; Admin Dose 4 MG; Start 11/20/16 at 12:00 Nitroglycerin (Nitroglycerin (Sl Tab) 0.4 Mg) 1 tab Q5M PRN SL CHEST PAIN; Start 11/20/16 at 12:00 Zolpidem Tartrate (Ambien) 5 mg QHS PRN PO INSOMNIA; Start 11/20/16 at 12:00 Pantoprazole (Protonix Tab) 40 mg DAILY@06 PO Last administered on 12/18/16 06 :15; Admin Dose 40 MG; Start 11/21/16 at 06:00 Miscellaneous Information 1 ea NOTE XX ; Start 11/20/16 at 12:30 Glucose (Glutose) 15 gm Q15M PRN PO DECREASED GLUCOSE; Start 11/20/16 at 12:30 Glucose (Glutose) 22.5 gm Q15M PRN PO DECREASED GLUCOSE; Start 11/20/16 at 12: 30 Dextrose (D50w Syringe) 25 ml Q15M PRN IV DECREASED GLUCOSE; Start 11/20/16 at 12:30 Dextrose (D50w Syringe) 50 ml Q15M PRN IV DECREASED GLUCOSE; Start 11/20/16 at 12:30 Glucagon (Glucagen) 1 mg Q15M PRN IM DECREASED GLUCOSE; Start 11/20/16 at 12:30 Glucose (Glutose) 15 gm Q15M PRN BUCCAL DECREASED GLUCOSE Last administered on 12/12/16 08:29; Admin Dose 15 GM; Start 11/20/16 at 12:30 Levothyroxine Sodium (Synthroid) 125 mcg DAILY@06 PO Last administered on 06:15; Admin Dose 125 MCG; Start 11/22/16 at 06:00 Guaifenesin (Robitussin Liquid Cup) 100 mg Q6H PRN PO COUGH Last administered on 12/16/16 11:44; Admin Dose 100 MG; Start 11/23/16 at 16:30 IV Flush (NS 10 ml) 10 ml PRN PRN IV IV PROTOCOL; Start 11/24/16 at 15:30 Insulin Glargine 15 unit 15 unit HS SC Last administered on 12/17/16 22:37; Admin Dose 15 UNIT; Start 11/26/16 at 21:00 Albumin Human (Albumin Human 25%) 100 ml @ 100 mls/hr ONCE PRN IV after paracentesis; Start 12/02/16 at 02:00 Morphine Sulfate (morphine) 2 mg Q3H PRN IV PAIN LEVEL 7-10 Last administered on 12/18/16 15:54; Admin Dose 2 MG; Start 12/04/16 at 10:00 Acetaminophen (Tylenol Tab) 650 mg Q4H PRN PO PAIN LEVEL 1-3 OR FEVER Last administered on 12/11/16 01:53; Admin Dose 650 MG; Start 12/10/16 at 13:00 Midodrine (Proamatine) 5 mg TID PRN PO sbp<80; Start 12/15/16 at 21:00 Doxycycline Hyclate (Vibramycin) 100 mg BID PO Last administered on 12/18/16 08:00; Admin Dose 100 MG; Start 12/17/16 at 21:00; Stop 01/19/17 at 22:00 Pyridoxine HCl 50 mg 50 mg DAILY PO Last administered on 12/18/16 08:06; Admin Dose 50 MG; Start 12/17/16 at 16:30 Sodium Chloride (NS) 1,000 ml @ 40 mls/hr Q24H IV Last administered on t 17:30; Admin Dose 40 MLS/HR; Start 12/17/16 at 17:30 LOR MASON MD Dec 18, 2016 16:40
--- NOTE | 2016-12-18 17:18 | PN ---
DATE: 12/18/2016 SUBJECTIVE: No acute changes. Patient is lying comfortably in bed. Afebrile. WBC 6.5, H and H 9.8 and 30.7, platelets 336, BUN 53, creatinine 7.36. MICROBIOLOGY: Peritoneal fluid culture on admission grew coagulase-negative staph species. ANTIMICROBIALS: The patient is on doxycycline, status post vancomycin. INDWELLINGS: Right upper extremity AV fistula, left upper extremity PICC line. PHYSICAL EXAMINATION: GENERAL: This is a fragile, chronically ill-appearing, elderly man who is awake, in no distress. HEENT: Head atraumatic, normocephalic. Sclerae anicteric. Buccal mucosa dry. NECK: Supple, trachea midline. CHEST: Rise symmetrical. Breath sounds diminished. HEART: S1, S2. ABDOMEN: Obese, soft. EXTREMITIES: Without cyanosis. ASSESSMENT: 1. Peritonitis secondary to infected Pleurx catheter that was discontinued. 2. End-stage renal disease, hemodialysis dependent. 3. End-stage liver disease with recurrent ascites, status post Pleurx catheter placement and discon tinuation. 4. Ischemic cardiomyopathy. 5. Coronary artery disease, history of coronary artery bypass graft. 6. Anemia with thrombocytopenia. PLAN: Patient remains stable. Continue present care. Continue on current antimicrobials to comple te 2 weeks treatment. Hemodialysis per renal. Dictated By: SMITHA HERNANDEZ PATHOLOGY TECHNOLOGIST for [facility]/RAYNA Conf#: [id number] DID#: [id number]
--- NOTE | 2016-12-18 17:57 | PN ---
Date/Time of Note Date/Time of Note DATE: 12/18/16 TIME: 17:56 Assessment/Plan VTE Prophylaxis VTE Prophylaxis Intervention: SCD's Lines/Catheters IV Catheter Type (from Nrs): PICC Line Central line still needed: Yes Urinary Cath still in place: No Assessment/Plan Chief Complaint/Hosp Course ASSESSMENT AND PLAN: - Peritonitis, s/p DC peritoneal catheter, continue antibiotics per ID. Dr. Stokes is following an infection disease consultation. - Status post mechanical fall. Brain CT is negative, hip x-ray is negative for fracture. - Severe hypotension requiring pressors, resolved. - Congestive heart failure exacerbation with ejection fraction of 20% per last echo. Continue to remove fluids with hemodialysis. - Ascites, status post paracentesis on11/20, 12/02. S/p tunneled peritoneal drainage catheter placement 12/06. - End-stage renal disease, hemodialysis-dependent. Dr. Maddox is following from nephrology standpoint. Continue patient on hemodialysis. - Coronary artery disease status post coronary artery bypass graft. Continue patient on aspirin and Coreg. Dr. Cee is following from cardiology standpoint. - Hypothyroidism. TSH is 14, Synthroid increased to 125. - Diabetes mellitus type 2. Continue to monitor blood sugar with mild algorithm scale, NovoLog coverage. - Hemodialysis access, status post right AV fistulogram by Dr. Loco, vascular surgery on 11/21. - Liver cirrhosis and portal hypertension. Dr. Kirkpatrick is following in gastroenterology consultation. Continue Protonix for peptic ulcer disease prophylaxis. Further recommendations based on clinical course. Plan of care discussed with Dr. Vick. Problems: Subjective 24 Hr Interval Summary Free Text/Dictation Patient denies any nausea vomiting, denies chest pain, remains afebrile. Borderline hypotension. Exam/Review of Systems Vital Signs Vitals Vital Signs Date Time Temp Pulse Resp B/P Pulse Ox O2 Delivery O2 Flow Rate FiO2 12/18/16 16:14 83 12/18/16 15:23 97.3 18 80/51 97 12/18/16 04:40 Room Air Intake and Output 12/17/16 12/17/16 12/18/16 15:00 23:00 07:00 Intake Total 900 ml Output Total 600 ml 850 ml Balance -600 ml 50 ml Exam GENERAL: well-developed, well-nourished male, currently is awake, alert. Left eyebrow abrasion and bruising. HEENT: Head is atraumatic, normocephalic. NECK: Supple. JVD is present, no cervical lymphadenopathy. CHEST: Lungs are clear bilaterally, slightly diminished at the bases. CARDIOVASCULAR: Regular rhythm and rate, normal S1, S2. No murmurs, gallops, clicks, rubs noted. The patient has a left chest permanent pacemaker with AICD. GASTROINTESTINAL: Abdomen is protuberant, soft, slightly distended, nontender. Bowel sounds present. No guarding, no rebound tenderness. SKIN: No rash, petechiae. EXTREMITIES: The patient has bilateral lower extremity edema, 3+. NEUROLOGIC: The patient is awake, alert and oriented x3. Results Result Diagram: 12/18/16 0535 12/18/16 0535 Results 24 hrs Laboratory Tests Test 12/17/16 18:54 12/17/16 21:59 12/18/16 05:35 12/18/16 07:51 Bedside Glucose 96 102 76 Anion Gap 18 H Blood Urea Nitrogen 53 H Calcium Level 6.5 L Carbon Dioxide Level 23 Chloride Level 93 L Creatinine 7.36 H Differential Comment MANUAL DIFF Eosinophils # 0.3 Eosinophils % 5.0 Glucose Level 71 Hematocrit 30.7 L Hemoglobin 9.8 L Lymphocytes # 0.9 Lymphocytes % 14.0 L Mean Corpuscular Hemoglobin 29.1 Mean Corpuscular Hemoglobin Concent 31.9 L Mean Corpuscular Volume 91.1 Mean Platelet Volume 10.7 H Monocytes # 0.3 Monocytes % 4.0 Neutrophils # 4.9 Neutrophils % 75.0 Platelet Count 36 #L Potassium Level 4.9 Reactive Lymphocytes % 2.0 Red Blood Count 3.37 L Red Cell Distribution Width 19.7 H Sodium Level 129 L White Blood Count 6.5 # Test 12/18/16 11:31 12/18/16 17:29 Bedside Glucose 112 136 Medications Medications Current Medications Lorazepam (Ativan) 0.5 mg Q8H PRN PO ANXIETY Last administered on 12/17/16 01: 59; Admin Dose 0.5 MG; Start 11/20/16 at 12:00 Ondansetron HCl (Zofran Inj) 4 mg Q6H PRN IV NAUSEA AND/OR VOMITING Last administered on 11/23/16 05:32; Admin Dose 4 MG; Start 11/20/16 at 12:00 Nitroglycerin (Nitroglycerin (Sl Tab) 0.4 Mg) 1 tab Q5M PRN SL CHEST PAIN; Start 11/20/16 at 12:00 Zolpidem Tartrate (Ambien) 5 mg QHS PRN PO INSOMNIA; Start 11/20/16 at 12:00 Pantoprazole (Protonix Tab) 40 mg DAILY@06 PO Last administered on 12/18/16 06 :15; Admin Dose 40 MG; Start 11/21/16 at 06:00 Miscellaneous Information 1 ea NOTE XX ; Start 11/20/16 at 12:30 Glucose (Glutose) 15 gm Q15M PRN PO DECREASED GLUCOSE; Start 11/20/16 at 12:30 Glucose (Glutose) 22.5 gm Q15M PRN PO DECREASED GLUCOSE; Start 11/20/16 at 12: 30 Dextrose (D50w Syringe) 25 ml Q15M PRN IV DECREASED GLUCOSE; Start 11/20/16 at 12:30 Dextrose (D50w Syringe) 50 ml Q15M PRN IV DECREASED GLUCOSE; Start 11/20/16 at 12:30 Glucagon (Glucagen) 1 mg Q15M PRN IM DECREASED GLUCOSE; Start 11/20/16 at 12:30 Glucose (Glutose) 15 gm Q15M PRN BUCCAL DECREASED GLUCOSE Last administered on 12/12/16 08:29; Admin Dose 15 GM; Start 11/20/16 at 12:30 Levothyroxine Sodium (Synthroid) 125 mcg DAILY@06 PO Last administered on 06:15; Admin Dose 125 MCG; Start 11/22/16 at 06:00 Guaifenesin (Robitussin Liquid Cup) 100 mg Q6H PRN PO COUGH Last administered on 12/16/16 11:44; Admin Dose 100 MG; Start 11/23/16 at 16:30 IV Flush (NS 10 ml) 10 ml PRN PRN IV IV PROTOCOL; Start 11/24/16 at 15:30 Insulin Glargine 15 unit 15 unit HS SC Last administered on 12/17/16 22:37; Admin Dose 15 UNIT; Start 11/26/16 at 21:00 Albumin Human (Albumin Human 25%) 100 ml @ 100 mls/hr ONCE PRN IV after paracentesis; Start 12/02/16 at 02:00 Morphine Sulfate (morphine) 2 mg Q3H PRN IV PAIN LEVEL 7-10 Last administered on 12/18/16 15:54; Admin Dose 2 MG; Start 12/04/16 at 10:00 Acetaminophen (Tylenol Tab) 650 mg Q4H PRN PO PAIN LEVEL 1-3 OR FEVER Last administered on 12/11/16 01:53; Admin Dose 650 MG; Start 12/10/16 at 13:00 Midodrine (Proamatine) 5 mg TID PRN PO sbp<80; Start 12/15/16 at 21:00 Doxycycline Hyclate (Vibramycin) 100 mg BID PO Last administered on 12/18/16 08:00; Admin Dose 100 MG; Start 12/17/16 at 21:00; Stop 01/19/17 at 22:00 Pyridoxine HCl 50 mg 50 mg DAILY PO Last administered on 12/18/16 08:06; Admin Dose 50 MG; Start 12/17/16 at 16:30 Sodium Chloride (NS) 1,000 ml @ 40 mls/hr Q24H IV Last administered on 17:30; Admin Dose 40 MLS/HR; Start 12/17/16 at 17:30 DICKSON GROSSMAN Dec 18, 2016 17:57
[2016-12-18] MEDS: SOD CHLORIDE 0.9% 1,000 ML IV SCH (18:51)
[2016-12-18] MEDS: INSULIN GLARGINE [LANtus] 3 ML PEN SC SCH (21:00)
--- NOTE | 2016-12-18 22:44 | CONS ---
Date/Time of Note Date/Time of Note DATE: 12/18/16 TIME: 22:44 Assessment/Plan Assessment/Plan Chief Complaint/Hosp Course Next HD in AM Problems: Additional Assessment/Plan Continue HD tho BP remains a problem Cont'd Hospitalization Reason: Will adjust epo dose if Hct continues going up Consultation Date/Type/Reason Admit Date/Time Nov 20, 2016 at 09:34 Initial Consult Date 11/21/16 Type of Consultation: renal Referring Provider: DEMETRA BRUNO MD 24 HR Interval Summary Free Text/Dictation Sister at bedside Pt not very verbal Constitutional: no complaints Exam/Review of Systems Vital Signs Vitals Vital Signs Date Time Temp Pulse Resp B/P Pulse Ox O2 Delivery O2 Flow Rate FiO2 12/18/16 20:02 95 12/18/16 20:00 98.0 18 83/52 93 12/18/16 04:40 Room Air Intake and Output 12/17/16 12/17/16 12/18/16 15:00 23:00 07:00 Intake Total 900 ml Output Total 600 ml 850 ml Balance -600 ml 50 ml Exam Constitutional: alert, oriented, well developed Psych: nl mood/affect, no complaints Head: atraumatic, normocephalic Eyes: EOMI, PERRL, nl conjunctiva, nl lids, nl sclera ENMT: nl external ears & nose, nl lips & teeth, nl nasal mucosa & septum Neck: non-tender, supple Respiratory: clear to auscultation, normal air movement Cardiovascular: nl pulses, regular rate and rhythm Gastrointestinal: ascites (Pt drains Peritoneal fluid on his own with he help of RN), nl liver, spleen, non-tender, other (Cath in abd cavity), soft Musculoskeletal: nl extremities to inspection, nl gait and stance Extremities: normal pulses, other (avf lt arm) 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: 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 TEACHER 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, nl mental status, nl speech, nl strength Skin: nl turgor, No rash or lesions Lymph: nl lymph nodes Results Low Sna 129, dilutional Pt is on fluid restriction Result Diagram: 12/18/16 0535 12/18/16 0535 Results 24 hrs Laboratory Tests Test 12/18/16 05:33 12/18/16 05:35 12/18/16 07:51 12/18/16 11:31 Lactate Dehydrogenase 476 Anion Gap 18 H Blood Urea Nitrogen 53 H Calcium Level 6.5 L Carbon Dioxide Level 23 Chloride Level 93 L Creatinine 7.36 H Differential Comment MANUAL DIFF Eosinophils # 0.3 Eosinophils % 5.0 Glucose Level 71 Hematocrit 30.7 L Hemoglobin 9.8 L Lymphocytes # 0.9 Lymphocytes % 14.0 L Mean Corpuscular Hemoglobin 29.1 Mean Corpuscular Hemoglobin Concent 31.9 L Mean Corpuscular Volume 91.1 Mean Platelet Volume 10.7 H Monocytes # 0.3 Monocytes % 4.0 Neutrophils # 4.9 Neutrophils % 75.0 Platelet Count 36 #L Potassium Level 4.9 Reactive Lymphocytes % 2.0 Red Blood Count 3.37 L Red Cell Distribution Width 19.7 H Sodium Level 129 L White Blood Count 6.5 # Bedside Glucose 76 112 Test 12/18/16 17:29 Bedside Glucose 136 Medications Medications Current Medications Lorazepam (Ativan) 0.5 mg Q8H PRN PO ANXIETY Last administered on 12/17/16 01: 59; Admin Dose 0.5 MG; Start 11/20/16 at 12:00 Ondansetron HCl (Zofran Inj) 4 mg Q6H PRN IV NAUSEA AND/OR VOMITING Last administered on 11/23/16 05:32; Admin Dose 4 MG; Start 11/20/16 at 12:00 Nitroglycerin (Nitroglycerin (Sl Tab) 0.4 Mg) 1 tab Q5M PRN SL CHEST PAIN; Start 11/20/16 at 12:00 Zolpidem Tartrate (Ambien) 5 mg QHS PRN PO INSOMNIA; Start 11/20/16 at 12:00 Pantoprazole (Protonix Tab) 40 mg DAILY@06 PO Last administered on 12/18/16 06 :15; Admin Dose 40 MG; Start 11/21/16 at 06:00 Miscellaneous Information 1 ea NOTE XX ; Start 11/20/16 at 12:30 Glucose (Glutose) 15 gm Q15M PRN PO DECREASED GLUCOSE; Start 11/20/16 at 12:30 Glucose (Glutose) 22.5 gm Q15M PRN PO DECREASED GLUCOSE; Start 11/20/16 at 12: 30 Dextrose (D50w Syringe) 25 ml Q15M PRN IV DECREASED GLUCOSE; Start 11/20/16 at 12:30 Dextrose (D50w Syringe) 50 ml Q15M PRN IV DECREASED GLUCOSE; Start 11/20/16 at 12:30 Glucagon (Glucagen) 1 mg Q15M PRN IM DECREASED GLUCOSE; Start 11/20/16 at 12:30 Glucose (Glutose) 15 gm Q15M PRN BUCCAL DECREASED GLUCOSE Last administered on 12/12/16 08:29; Admin Dose 15 GM; Start 11/20/16 at 12:30 Levothyroxine Sodium (Synthroid) 125 mcg DAILY@06 PO Last administered on 06:15; Admin Dose 125 MCG; Start 11/22/16 at 06:00 Guaifenesin (Robitussin Liquid Cup) 100 mg Q6H PRN PO COUGH Last administered on 12/16/16 11:44; Admin Dose 100 MG; Start 11/23/16 at 16:30 IV Flush (NS 10 ml) 10 ml PRN PRN IV IV PROTOCOL; Start 11/24/16 at 15:30 Insulin Glargine 15 unit 15 unit HS SC Last administered on 12/17/16 22:37; Admin Dose 15 UNIT; Start 11/26/16 at 21:00 Albumin Human (Albumin Human 25%) 100 ml @ 100 mls/hr ONCE PRN IV after paracentesis; Start 12/02/16 at 02:00 Morphine Sulfate (morphine) 2 mg Q3H PRN IV PAIN LEVEL 7-10 Last administered on 12/18/16 18:51; Admin Dose 2 MG; Start 12/04/16 at 10:00 Acetaminophen (Tylenol Tab) 650 mg Q4H PRN PO PAIN LEVEL 1-3 OR FEVER Last administered on 12/11/16 01:53; Admin Dose 650 MG; Start 12/10/16 at 13:00 Midodrine (Proamatine) 5 mg TID PRN PO sbp<80; Start 12/15/16 at 21:00 Doxycycline Hyclate (Vibramycin) 100 mg BID PO Last administered on 12/18/16 21:03; Admin Dose 100 MG; Start 12/17/16 at 21:00; Stop 01/19/17 at 22:00 Pyridoxine HCl 50 mg 50 mg DAILY PO Last administered on 12/18/16 08:06; Admin Dose 50 MG; Start 12/17/16 at 16:30 Sodium Chloride (NS) 1,000 ml @ 40 mls/hr Q24H IV Last administered on t 18:51; Admin Dose 40 MLS/HR; Start 12/17/16 at 17:30 MILADY ANDERSON MD Dec 18, 2016 22:44
[2016-12-19] VITALS (13 sets, daily range): BP systolic 86–120; BP diastolic 51–83; PULSE 81–95; RESP 16–18
[2016-12-19] MEDS: morphine 2 MG INJ IV PRN ×6 (02:12→20:37)
[2016-12-19] MEDS: PANTOPRAZOLE (EC) 40 MG TAB PO SCH (06:03)
[2016-12-19] MEDS: LEVOTHYROXINE 125 MCG TAB PO SCH (06:03)
[2016-12-19 06:16] LABS: ADD SCAN DIFF NO
[2016-12-19 06:24] LABS: ABNORMAL IP MESSAGE 1; BASOPHILS % 0.3 % (0.0-2.0); EOSINOPHILS # 0.2 10^3/ul (0.0-0.5); EOSINOPHILS % 3.3 % (0.0-7.0); HEMATOCRIT 30.2 % (42.0-52.0); HEMOGLOBIN 9.5 g/dl (14.0-18.0); LYMPHOCYTES # 1.1 10^3/ul (0.8-2.9); LYMPHOCYTES % 19.5 % (15.0-51.0); MEAN CORPUSCULAR HEMOGLOBIN 29.1 pg (29.0-33.0); MEAN CORPUSCULAR HGB CONC 31.5 g/dl (32.0-37.0); MEAN CORPUSCULAR VOLUME 92.4 fl (82.0-101.0); MEAN PLATELET VOLUME 11.5 fl (7.4-10.4); MONOCYTE # 0.6 10^3/ul (0.3-0.9); NEUTROPHIL # 3.8 10^3/ul (1.6-7.5); NEUTROPHILS % 65.2 % (39.0-77.0); PLATELET COUNT 48 10^3/UL (140-415); RED BLOOD COUNT 3.27 10^6/ul (4.70-6.10); WHITE BLOOD COUNT 5.8 10^3/ul (4.8-10.8)
[2016-12-19 06:32] LABS: POTASSIUM 3.8 mmol/L (3.5-5.1)
[2016-12-19 06:34] LABS: CREATININE 5.31 mg/dl (0.61-1.24)
[2016-12-19 06:35] LABS: CALCIUM 6.5 mg/dl (8.4-10.2)
[2016-12-19] MEDS: INSULIN ASPART [NOVOLOG] 3 ML PEN SC SCH ×4 (07:55→20:36)
[2016-12-19] MEDS: PYRIDOXINE 50 MG TAB PO SCH (08:07)
[2016-12-19] MEDS: DOXYCYCLINE 100 MG TAB PO SCH ×2 (08:07→20:35)
[2016-12-19] MEDS: LORAZEPAM 0.5 MG TAB PO PRN (10:38)
--- NOTE | 2016-12-19 11:18 | CONS ---
Date/Time of Note Date/Time of Note DATE: 12/19/16 TIME: 11:17 Assessment/Plan Assessment/Plan Additional Assessment/Plan ASSESSMENT: 1. Refractory ascites. 2. Ischemic cardiomyopathy. 3. End-stage renal disease. 4. Cirrhosis of liver. 5.s/p pleurex drain for ascites,3 liters removed today 6.leaking around Pleurex 7. left hip pain 8. SBP,wbc 3600 9.hypotension 10 thrombocytopenia,better Plan drain ascitic fluid PRN PT antibiotic as per ID d/c drainage catheter,done continue antibiotic fluid for cytology ,not done Consultation Date/Type/Reason Admit Date/Time Nov 20, 2016 at 09:34 Initial Consult Date 11/21/16 Type of Consultation: hematology Referring Provider: DEMETRA BRUNO MD 24 HR Interval Summary Constitutional: improved Exam/Review of Systems Vital Signs Vitals Vital Signs Date Time Temp Pulse Resp B/P Pulse Ox O2 Delivery O2 Flow Rate FiO2 12/19/16 11:05 97.9 56 17 120/83 99 12/18/16 04:40 Room Air Intake and Output 12/18/16 12/18/16 12/19/16 15:00 23:00 07:00 Intake Total 200 ml 1320 ml 340 ml Output Total 2400 ml Balance -2200 ml 1320 ml 340 ml Exam Constitutional: alert, oriented, well developed Psych: nl mood/affect, no complaints Head: atraumatic, normocephalic Eyes: EOMI, PERRL, nl conjunctiva, nl lids, nl sclera ENMT: nl external ears & nose, nl lips & teeth, nl nasal mucosa & septum Neck: non-tender, supple Respiratory: clear to auscultation, normal air movement Cardiovascular: nl pulses, regular rate and rhythm Gastrointestinal: nl liver, spleen, non-tender, soft Musculoskeletal: nl extremities to inspection, nl gait and stance Extremities: normal pulses 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: FARMWORKER 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, nl mental status, nl speech, nl strength Skin: nl turgor, No rash or lesions Lymph: nl lymph nodes Results Result Diagram: 12/19/16 0555 12/19/16 0554 Results 24 hrs Laboratory Tests Test 12/18/16 11:31 12/18/16 17:29 12/19/16 05:54 12/19/16 05:55 Bedside Glucose 112 136 Anion Gap 15 Blood Urea Nitrogen 35 #H Calcium Level 6.5 L Carbon Dioxide Level 24 Chloride Level 98 Creatinine 5.31 #H Glucose Level 141 # Potassium Level 3.8 Sodium Level 133 L Basophils # 0.0 Basophils % 0.3 Eosinophils # 0.2 Eosinophils % 3.3 Hematocrit 30.2 L Hemoglobin 9.5 L Lymphocytes # 1.1 Lymphocytes % 19.5 Mean Corpuscular Hemoglobin 29.1 Mean Corpuscular Hemoglobin Concent 31.5 L Mean Corpuscular Volume 92.4 Mean Platelet Volume 11.5 H Monocytes # 0.6 Monocytes % 11.0 Neutrophils # 3.8 Neutrophils % 65.2 Nucleated Red Blood Cells # 0.0 Nucleated Red Blood Cells % 0.0 Platelet Count 48 #L Red Blood Count 3.27 L Red Cell Distribution Width 20.0 H White Blood Count 5.8 Test 12/19/16 07:29 Bedside Glucose 119 Medications Medications Current Medications Lorazepam (Ativan) 0.5 mg Q8H PRN PO ANXIETY Last administered on 12/19/16 10: 38; Admin Dose 0.5 MG; Start 11/20/16 at 12:00 Ondansetron HCl (Zofran Inj) 4 mg Q6H PRN IV NAUSEA AND/OR VOMITING Last administered on 11/23/16 05:32; Admin Dose 4 MG; Start 11/20/16 at 12:00 Nitroglycerin (Nitroglycerin (Sl Tab) 0.4 Mg) 1 tab Q5M PRN SL CHEST PAIN; Start 11/20/16 at 12:00 Zolpidem Tartrate (Ambien) 5 mg QHS PRN PO INSOMNIA; Start 11/20/16 at 12:00 Pantoprazole (Protonix Tab) 40 mg DAILY@06 PO Last administered on 12/19/16 06 :03; Admin Dose 40 MG; Start 11/21/16 at 06:00 Miscellaneous Information 1 ea NOTE XX ; Start 11/20/16 at 12:30 Glucose (Glutose) 15 gm Q15M PRN PO DECREASED GLUCOSE; Start 11/20/16 at 12:30 Glucose (Glutose) 22.5 gm Q15M PRN PO DECREASED GLUCOSE; Start 11/20/16 at 12: 30 Dextrose (D50w Syringe) 25 ml Q15M PRN IV DECREASED GLUCOSE; Start 11/20/16 at 12:30 Dextrose (D50w Syringe) 50 ml Q15M PRN IV DECREASED GLUCOSE; Start 11/20/16 at 12:30 Glucagon (Glucagen) 1 mg Q15M PRN IM DECREASED GLUCOSE; Start 11/20/16 at 12:30 Glucose (Glutose) 15 gm Q15M PRN BUCCAL DECREASED GLUCOSE Last administered on 12/12/16 08:29; Admin Dose 15 GM; Start 11/20/16 at 12:30 Levothyroxine Sodium (Synthroid) 125 mcg DAILY@06 PO Last administered on 06:03; Admin Dose 125 MCG; Start 11/22/16 at 06:00 Guaifenesin (Robitussin Liquid Cup) 100 mg Q6H PRN PO COUGH Last administered on 12/16/16 11:44; Admin Dose 100 MG; Start 11/23/16 at 16:30 IV Flush (NS 10 ml) 10 ml PRN PRN IV IV PROTOCOL; Start 11/24/16 at 15:30 Insulin Glargine 15 unit 15 unit HS SC Last administered on 12/17/16 22:37; Admin Dose 15 UNIT; Start 11/26/16 at 21:00 Albumin Human (Albumin Human 25%) 100 ml @ 100 mls/hr ONCE PRN IV after paracentesis; Start 12/02/16 at 02:00 Morphine Sulfate (morphine) 2 mg Q3H PRN IV PAIN LEVEL 7-10 Last administered on 12/19/16 09:33; Admin Dose 2 MG; Start 12/04/16 at 10:00 Acetaminophen (Tylenol Tab) 650 mg Q4H PRN PO PAIN LEVEL 1-3 OR FEVER Last administered on 12/11/16 01:53; Admin Dose 650 MG; Start 12/10/16 at 13:00 Midodrine (Proamatine) 5 mg TID PRN PO sbp<80 Last administered on 12/19/16 08 :08; Admin Dose 5 MG; Start 12/15/16 at 21:00 Doxycycline Hyclate (Vibramycin) 100 mg BID PO Last administered on 12/19/16 08:07; Admin Dose 100 MG; Start 12/17/16 at 21:00; Stop 01/19/17 at 22:00 Pyridoxine HCl 50 mg 50 mg DAILY PO Last administered on 12/19/16 08:07; Admin Dose 50 MG; Start 12/17/16 at 16:30 Sodium Chloride (NS) 1,000 ml @ 40 mls/hr Q24H IV Last administered on 18:51; Admin Dose 40 MLS/HR; Start 12/17/16 at 17:30 LOR MASON MD Dec 19, 2016 11:18
--- NOTE | 2016-12-19 13:03 | CONS ---
Date/Time of Note Date/Time of Note DATE: 12/19/16 TIME: 13:02 Assessment/Plan Assessment/Plan Chief Complaint/Hosp Course 66 yo male with ESRD on HD and cirrhosis being treated for sepsis secondary to spontaneous bacterial peritonitis from and infected catheter. Since starting on antibiotics, namely vancomycin, patient's platelets have dramatically dropped in the absence of any obvious bleed. Vancomycin has since been held and pt is being continued on Doxycycline. Pt was given 1 dose of Heparin when he was first admitted. It is therefore worth ruling out HIT as a contributing cause of the thrombocytopenia. # Thrombocytopenia - likely secondary to cirrhosis and portal HTN in addition to effects of Vancomycin and underlying sepsis -agree with holding Vancomycin and continuing with Doxycycline -will order HIT panel -peripheral smear review not consistent with TTP. But will order LDH to complete workup -HIV and Hep panel are negative and therefore not contributing factors to thrombocytopenia -DIC panel ordered. INR at 1.2 which does not support DIC -continue to hold all anticoagulation -transfuse if platelets < 10, < 20 if febrile and < 50 if bleeding Approximately 40 min were spent at patient's bedside and in coordination of his care Problems: Consultation Date/Type/Reason Admit Date/Time Nov 20, 2016 at 09:34 Initial Consult Date 12/18/16 Type of Consultation: hematology Reason for Consultation thrombocytopenia Referring Provider: DEMETRA BRUNO MD 24 HR Interval Summary Free Text/Dictation no acute overnight events Exam/Review of Systems Vital Signs Vitals Vital Signs Date Time Temp Pulse Resp B/P Pulse Ox O2 Delivery O2 Flow Rate FiO2 12/19/16 12:01 90 12/19/16 11:05 97.9 17 120/83 99 12/18/16 04:40 Room Air Intake and Output 12/18/16 12/18/16 12/19/16 15:00 23:00 07:00 Intake Total 200 ml 1320 ml 340 ml Output Total 2400 ml Balance -2200 ml 1320 ml 340 ml Exam Constitutional: alert, oriented Psych: no complaints Head: atraumatic, normocephalic Eyes: nl conjunctiva ENMT: nl external ears & nose Neck: non-tender, supple Respiratory: clear to auscultation Cardiovascular: nl pulses, regular rate and rhythm Gastrointestinal: soft Musculoskeletal: nl extremities to inspection, nl gait and stance Extremities: normal pulses Results Result Diagram: 12/19/16 0555 12/19/16 0554 Results 24 hrs Laboratory Tests Test 12/18/16 17:29 12/19/16 05:54 12/19/16 05:55 12/19/16 07:29 Bedside Glucose 136 119 Anion Gap 15 Blood Urea Nitrogen 35 #H Calcium Level 6.5 L Carbon Dioxide Level 24 Chloride Level 98 Creatinine 5.31 #H Glucose Level 141 # Potassium Level 3.8 Sodium Level 133 L Basophils # 0.0 Basophils % 0.3 Eosinophils # 0.2 Eosinophils % 3.3 Hematocrit 30.2 L Hemoglobin 9.5 L Lymphocytes # 1.1 Lymphocytes % 19.5 Mean Corpuscular Hemoglobin 29.1 Mean Corpuscular Hemoglobin Concent 31.5 L Mean Corpuscular Volume 92.4 Mean Platelet Volume 11.5 H Monocytes # 0.6 Monocytes % 11.0 Neutrophils # 3.8 Neutrophils % 65.2 Nucleated Red Blood Cells # 0.0 Nucleated Red Blood Cells % 0.0 Platelet Count 48 #L Red Blood Count 3.27 L Red Cell Distribution Width 20.0 H White Blood Count 5.8 Test 12/19/16 11:32 Bedside Glucose 100 Medications Medications Current Medications Lorazepam (Ativan) 0.5 mg Q8H PRN PO ANXIETY Last administered on 12/19/16 10: 38; Admin Dose 0.5 MG; Start 11/20/16 at 12:00 Ondansetron HCl (Zofran Inj) 4 mg Q6H PRN IV NAUSEA AND/OR VOMITING Last administered on 11/23/16 05:32; Admin Dose 4 MG; Start 11/20/16 at 12:00 Nitroglycerin (Nitroglycerin (Sl Tab) 0.4 Mg) 1 tab Q5M PRN SL CHEST PAIN; Start 11/20/16 at 12:00 Zolpidem Tartrate (Ambien) 5 mg QHS PRN PO INSOMNIA; Start 11/20/16 at 12:00 Pantoprazole (Protonix Tab) 40 mg DAILY@06 PO Last administered on 12/19/16 06 :03; Admin Dose 40 MG; Start 11/21/16 at 06:00 Miscellaneous Information 1 ea NOTE XX ; Start 11/20/16 at 12:30 Glucose (Glutose) 15 gm Q15M PRN PO DECREASED GLUCOSE; Start 11/20/16 at 12:30 Glucose (Glutose) 22.5 gm Q15M PRN PO DECREASED GLUCOSE; Start 11/20/16 at 12: 30 Dextrose (D50w Syringe) 25 ml Q15M PRN IV DECREASED GLUCOSE; Start 11/20/16 at 12:30 Dextrose (D50w Syringe) 50 ml Q15M PRN IV DECREASED GLUCOSE; Start 11/20/16 at 12:30 Glucagon (Glucagen) 1 mg Q15M PRN IM DECREASED GLUCOSE; Start 11/20/16 at 12:30 Glucose (Glutose) 15 gm Q15M PRN BUCCAL DECREASED GLUCOSE Last administered on 12/12/16 08:29; Admin Dose 15 GM; Start 11/20/16 at 12:30 Levothyroxine Sodium (Synthroid) 125 mcg DAILY@06 PO Last administered on 06:03; Admin Dose 125 MCG; Start 11/22/16 at 06:00 Guaifenesin (Robitussin Liquid Cup) 100 mg Q6H PRN PO COUGH Last administered on 12/16/16 11:44; Admin Dose 100 MG; Start 11/23/16 at 16:30 IV Flush (NS 10 ml) 10 ml PRN PRN IV IV PROTOCOL; Start 11/24/16 at 15:30 Insulin Glargine 15 unit 15 unit HS SC Last administered on 12/17/16 22:37; Admin Dose 15 UNIT; Start 11/26/16 at 21:00 Albumin Human (Albumin Human 25%) 100 ml @ 100 mls/hr ONCE PRN IV after paracentesis; Start 12/02/16 at 02:00 Morphine Sulfate (morphine) 2 mg Q3H PRN IV PAIN LEVEL 7-10 Last administered on 12/19/16 12:55; Admin Dose 2 MG; Start 12/04/16 at 10:00 Acetaminophen (Tylenol Tab) 650 mg Q4H PRN PO PAIN LEVEL 1-3 OR FEVER Last administered on 12/11/16 01:53; Admin Dose 650 MG; Start 12/10/16 at 13:00 Midodrine (Proamatine) 5 mg TID PRN PO sbp<80 Last administered on 12/19/16 08 :08; Admin Dose 5 MG; Start 12/15/16 at 21:00 Doxycycline Hyclate (Vibramycin) 100 mg BID PO Last administered on 12/19/16 08:07; Admin Dose 100 MG; Start 12/17/16 at 21:00; Stop 01/19/17 at 22:00 Pyridoxine HCl 50 mg 50 mg DAILY PO Last administered on 12/19/16 08:07; Admin Dose 50 MG; Start 12/17/16 at 16:30 Sodium Chloride (NS) 1,000 ml @ 40 mls/hr Q24H IV Last administered on 18:51; Admin Dose 40 MLS/HR; Start 12/17/16 at 17:30 OTILIO VELASQUEZ M.D. Dec 19, 2016 13:03
--- NOTE | 2016-12-19 13:24 | CONS ---
Date/Time of Note Date/Time of Note DATE: 12/19/16 TIME: 13:24 Assessment/Plan Assessment/Plan Chief Complaint/Hosp Course SUBJECTIVE: No acute changes. Patient is alert, lying comfortably in bed. Afebrile. MICROBIOLOGY: Peritoneal fluid culture on admission grew coagulase-negative staph species. ANTIMICROBIALS: Doxycycline, status post vancomycin. INDWELLINGS: Right upper extremity AV fistula, left upper extremity PICC line. PHYSICAL EXAMINATION: GENERAL: This is a fragile, chronically ill-appearing, elderly man who is awake , in no distress. HEENT: Head atraumatic, normocephalic. Sclerae anicteric. Buccal mucosa dry. NECK: Supple, trachea midline. CHEST: Rise symmetrical. Breath sounds diminished. HEART: S1, S2. ABDOMEN: Obese, soft. EXTREMITIES: Without cyanosis. ASSESSMENT: 1. Peritonitis secondary to infected Pleurx catheter that was discontinued. 2. End-stage renal disease, hemodialysis dependent. 3. End-stage liver disease with recurrent ascites, status post Pleurx catheter placement and discontinuation. 4. Ischemic cardiomyopathy. 5. Coronary artery disease, history of coronary artery bypass graft. 6. Anemia with thrombocytopenia. PLAN: Patient remains stable. Continue present care. Continue on current antimicrobials to complete 2 weeks treatment. Hemodialysis per renal. GI rec-s DW pt Problems: Consultation Date/Type/Reason Admit Date/Time Nov 20, 2016 at 09:34 Initial Consult Date 12/18/16 Type of Consultation: ID Referring Provider: DEMETRA BRUNO MD Exam/Review of Systems Vital Signs Vitals Vital Signs Date Time Temp Pulse Resp B/P Pulse Ox O2 Delivery O2 Flow Rate FiO2 12/19/16 12:01 90 12/19/16 11:05 97.9 17 120/83 99 12/18/16 04:40 Room Air Intake and Output 12/18/16 12/18/16 12/19/16 15:00 23:00 07:00 Intake Total 200 ml 1320 ml 340 ml Output Total 2400 ml Balance -2200 ml 1320 ml 340 ml Results Result Diagram: 12/19/16 0555 12/19/16 0554 Results 24 hrs Laboratory Tests Test 12/18/16 17:29 12/19/16 05:54 12/19/16 05:55 12/19/16 07:29 Bedside Glucose 136 119 Anion Gap 15 Blood Urea Nitrogen 35 #H Calcium Level 6.5 L Carbon Dioxide Level 24 Chloride Level 98 Creatinine 5.31 #H Glucose Level 141 # Potassium Level 3.8 Sodium Level 133 L Basophils # 0.0 Basophils % 0.3 Eosinophils # 0.2 Eosinophils % 3.3 Hematocrit 30.2 L Hemoglobin 9.5 L Lymphocytes # 1.1 Lymphocytes % 19.5 Mean Corpuscular Hemoglobin 29.1 Mean Corpuscular Hemoglobin Concent 31.5 L Mean Corpuscular Volume 92.4 Mean Platelet Volume 11.5 H Monocytes # 0.6 Monocytes % 11.0 Neutrophils # 3.8 Neutrophils % 65.2 Nucleated Red Blood Cells # 0.0 Nucleated Red Blood Cells % 0.0 Platelet Count 48 #L Red Blood Count 3.27 L Red Cell Distribution Width 20.0 H White Blood Count 5.8 Test 12/19/16 11:32 Bedside Glucose 100 Medications Medications Current Medications Lorazepam (Ativan) 0.5 mg Q8H PRN PO ANXIETY Last administered on 12/19/16 10: 38; Admin Dose 0.5 MG; Start 11/20/16 at 12:00 Ondansetron HCl (Zofran Inj) 4 mg Q6H PRN IV NAUSEA AND/OR VOMITING Last administered on 11/23/16 05:32; Admin Dose 4 MG; Start 11/20/16 at 12:00 Nitroglycerin (Nitroglycerin (Sl Tab) 0.4 Mg) 1 tab Q5M PRN SL CHEST PAIN; Start 11/20/16 at 12:00 Zolpidem Tartrate (Ambien) 5 mg QHS PRN PO INSOMNIA; Start 11/20/16 at 12:00 Pantoprazole (Protonix Tab) 40 mg DAILY@06 PO Last administered on 12/19/16 06 :03; Admin Dose 40 MG; Start 11/21/16 at 06:00 Miscellaneous Information 1 ea NOTE XX ; Start 11/20/16 at 12:30 Glucose (Glutose) 15 gm Q15M PRN PO DECREASED GLUCOSE; Start 11/20/16 at 12:30 Glucose (Glutose) 22.5 gm Q15M PRN PO DECREASED GLUCOSE; Start 11/20/16 at 12: 30 Dextrose (D50w Syringe) 25 ml Q15M PRN IV DECREASED GLUCOSE; Start 11/20/16 at 12:30 Dextrose (D50w Syringe) 50 ml Q15M PRN IV DECREASED GLUCOSE; Start 11/20/16 at 12:30 Glucagon (Glucagen) 1 mg Q15M PRN IM DECREASED GLUCOSE; Start 11/20/16 at 12:30 Glucose (Glutose) 15 gm Q15M PRN BUCCAL DECREASED GLUCOSE Last administered on 12/12/16 08:29; Admin Dose 15 GM; Start 11/20/16 at 12:30 Levothyroxine Sodium (Synthroid) 125 mcg DAILY@06 PO Last administered on 06:03; Admin Dose 125 MCG; Start 11/22/16 at 06:00 Guaifenesin (Robitussin Liquid Cup) 100 mg Q6H PRN PO COUGH Last administered on 12/16/16 11:44; Admin Dose 100 MG; Start 11/23/16 at 16:30 IV Flush (NS 10 ml) 10 ml PRN PRN IV IV PROTOCOL; Start 11/24/16 at 15:30 Insulin Glargine 15 unit 15 unit HS SC Last administered on 12/17/16 22:37; Admin Dose 15 UNIT; Start 11/26/16 at 21:00 Albumin Human (Albumin Human 25%) 100 ml @ 100 mls/hr ONCE PRN IV after paracentesis; Start 12/02/16 at 02:00 Morphine Sulfate (morphine) 2 mg Q3H PRN IV PAIN LEVEL 7-10 Last administered on 12/19/16 12:55; Admin Dose 2 MG; Start 12/04/16 at 10:00 Acetaminophen (Tylenol Tab) 650 mg Q4H PRN PO PAIN LEVEL 1-3 OR FEVER Last administered on 12/11/16 01:53; Admin Dose 650 MG; Start 12/10/16 at 13:00 Midodrine (Proamatine) 5 mg TID PRN PO sbp<80 Last administered on 12/19/16 08 :08; Admin Dose 5 MG; Start 12/15/16 at 21:00 Doxycycline Hyclate (Vibramycin) 100 mg BID PO Last administered on 12/19/16 08:07; Admin Dose 100 MG; Start 12/17/16 at 21:00; Stop 01/19/17 at 22:00 Pyridoxine HCl 50 mg 50 mg DAILY PO Last administered on 12/19/16 08:07; Admin Dose 50 MG; Start 12/17/16 at 16:30 Sodium Chloride (NS) 1,000 ml @ 40 mls/hr Q24H IV Last administered on 18:51; Admin Dose 40 MLS/HR; Start 12/17/16 at 17:30 SMITHA HERNANDEZ NP Dec 19, 2016 13:24
--- NOTE | 2016-12-19 14:48 | CONS ---
Date/Time of Note Date/Time of Note DATE: 12/19/16 TIME: 14:47 Assessment/Plan Assessment/Plan Additional Assessment/Plan Hypotension, intermittent AV fistula stenosis status post venoplasty Acute decompensated systolic and diastolic heart failure Cardiomyopathy, likely ischemic and nonischemic in origin with an ejection fraction less than 20%. (Denied cardiac transplant at [facility]) Biventricular pacemaker and ICD Mitral and tricuspid valve regurgitation. Severe pulmonary hypertension. End-stage renal disease on hemodialysis Ascites status post paracentesis Atrial fibrillation -Blood pressure trend overall stable, fluid management via hemodialysis as per our nephrology colleagues. Anticoagulation on hold secondary to thrombocytopenia Consultation Date/Type/Reason Admit Date/Time Nov 20, 2016 at 09:34 Initial Consult Date 11/21/16 Type of Consultation: cv Referring Provider: DEMETRA BRUNO MD 24 HR Interval Summary Free Text/Dictation Denies shortness of breath, chest pain or palpitations Exam/Review of Systems Vital Signs Vitals Vital Signs Date Time Temp Pulse Resp B/P Pulse Ox O2 Delivery O2 Flow Rate FiO2 12/19/16 12:01 90 12/19/16 11:05 97.9 17 120/83 99 12/18/16 04:40 Room Air Intake and Output 12/18/16 12/18/16 12/19/16 15:00 23:00 07:00 Intake Total 200 ml 1320 ml 340 ml Output Total 2400 ml Balance -2200 ml 1320 ml 340 ml Exam Sitting up in bed, no apparent distress Constitutional: alert, frail, oriented Head: normocephalic Neck: supple Respiratory: other (Coarse breath sounds bilaterally, no wheezing) Cardiovascular: other (S1-S2 heard), regular rate and rhythm Gastrointestinal: ascites, bowel sounds, non-tender, other (No guarding), soft Extremities: edema Results Result Diagram: 12/19/16 0555 12/19/16 0554 Results 24 hrs Laboratory Tests Test 12/18/16 17:29 12/19/16 05:54 12/19/16 05:55 12/19/16 07:29 Bedside Glucose 136 119 Anion Gap 15 Blood Urea Nitrogen 35 #H Calcium Level 6.5 L Carbon Dioxide Level 24 Chloride Level 98 Creatinine 5.31 #H Glucose Level 141 # Potassium Level 3.8 Sodium Level 133 L Basophils # 0.0 Basophils % 0.3 Eosinophils # 0.2 Eosinophils % 3.3 Hematocrit 30.2 L Hemoglobin 9.5 L Lymphocytes # 1.1 Lymphocytes % 19.5 Mean Corpuscular Hemoglobin 29.1 Mean Corpuscular Hemoglobin Concent 31.5 L Mean Corpuscular Volume 92.4 Mean Platelet Volume 11.5 H Monocytes # 0.6 Monocytes % 11.0 Neutrophils # 3.8 Neutrophils % 65.2 Nucleated Red Blood Cells # 0.0 Nucleated Red Blood Cells % 0.0 Platelet Count 48 #L Red Blood Count 3.27 L Red Cell Distribution Width 20.0 H White Blood Count 5.8 Test 12/19/16 11:32 Bedside Glucose 100 Medications Medications Current Medications Lorazepam (Ativan) 0.5 mg Q8H PRN PO ANXIETY Last administered on 12/19/16 10: 38; Admin Dose 0.5 MG; Start 11/20/16 at 12:00 Ondansetron HCl (Zofran Inj) 4 mg Q6H PRN IV NAUSEA AND/OR VOMITING Last administered on 11/23/16 05:32; Admin Dose 4 MG; Start 11/20/16 at 12:00 Nitroglycerin (Nitroglycerin (Sl Tab) 0.4 Mg) 1 tab Q5M PRN SL CHEST PAIN; Start 11/20/16 at 12:00 Zolpidem Tartrate (Ambien) 5 mg QHS PRN PO INSOMNIA; Start 11/20/16 at 12:00 Pantoprazole (Protonix Tab) 40 mg DAILY@06 PO Last administered on 12/19/16 06 :03; Admin Dose 40 MG; Start 11/21/16 at 06:00 Miscellaneous Information 1 ea NOTE XX ; Start 11/20/16 at 12:30 Glucose (Glutose) 15 gm Q15M PRN PO DECREASED GLUCOSE; Start 11/20/16 at 12:30 Glucose (Glutose) 22.5 gm Q15M PRN PO DECREASED GLUCOSE; Start 11/20/16 at 12: 30 Dextrose (D50w Syringe) 25 ml Q15M PRN IV DECREASED GLUCOSE; Start 11/20/16 at 12:30 Dextrose (D50w Syringe) 50 ml Q15M PRN IV DECREASED GLUCOSE; Start 11/20/16 at 12:30 Glucagon (Glucagen) 1 mg Q15M PRN IM DECREASED GLUCOSE; Start 11/20/16 at 12:30 Glucose (Glutose) 15 gm Q15M PRN BUCCAL DECREASED GLUCOSE Last administered on 12/12/16 08:29; Admin Dose 15 GM; Start 11/20/16 at 12:30 Levothyroxine Sodium (Synthroid) 125 mcg DAILY@06 PO Last administered on 06:03; Admin Dose 125 MCG; Start 11/22/16 at 06:00 Guaifenesin (Robitussin Liquid Cup) 100 mg Q6H PRN PO COUGH Last administered on 12/16/16 11:44; Admin Dose 100 MG; Start 11/23/16 at 16:30 IV Flush (NS 10 ml) 10 ml PRN PRN IV IV PROTOCOL; Start 11/24/16 at 15:30 Insulin Glargine 15 unit 15 unit HS SC Last administered on 12/17/16 22:37; Admin Dose 15 UNIT; Start 11/26/16 at 21:00 Albumin Human (Albumin Human 25%) 100 ml @ 100 mls/hr ONCE PRN IV after paracentesis; Start 12/02/16 at 02:00 Morphine Sulfate (morphine) 2 mg Q3H PRN IV PAIN LEVEL 7-10 Last administered on 12/19/16 12:55; Admin Dose 2 MG; Start 12/04/16 at 10:00 Acetaminophen (Tylenol Tab) 650 mg Q4H PRN PO PAIN LEVEL 1-3 OR FEVER Last administered on 12/11/16 01:53; Admin Dose 650 MG; Start 12/10/16 at 13:00 Midodrine (Proamatine) 5 mg TID PRN PO sbp<80 Last administered on 12/19/16 08 :08; Admin Dose 5 MG; Start 12/15/16 at 21:00 Doxycycline Hyclate (Vibramycin) 100 mg BID PO Last administered on 12/19/16 08:07; Admin Dose 100 MG; Start 12/17/16 at 21:00; Stop 01/19/17 at 22:00 Pyridoxine HCl 50 mg 50 mg DAILY PO Last administered on 12/19/16 08:07; Admin Dose 50 MG; Start 12/17/16 at 16:30 Sodium Chloride (NS) 1,000 ml @ 40 mls/hr Q24H IV Last administered on 18:51; Admin Dose 40 MLS/HR; Start 12/17/16 at 17:30 Harpreet Cee DO Dec 19, 2016 14:48
[2016-12-19] MEDS: SOD CHLORIDE 0.9% 1,000 ML IV SCH (16:11)
--- NOTE | 2016-12-19 16:36 | PN ---
Date/Time of Note Date/Time of Note DATE: 12/19/16 TIME: 16:35 Assessment/Plan VTE Prophylaxis VTE Prophylaxis Intervention: SCD's Lines/Catheters IV Catheter Type (from Nrs): PICC Line Central line still needed: Yes Urinary Cath still in place: No Assessment/Plan Chief Complaint/Hosp Course ASSESSMENT AND PLAN: - Peritonitis, s/p DC peritoneal catheter, continue antibiotics per ID. Dr. Stokes is following an infection disease consultation. - Status post mechanical fall. Brain CT is negative, hip x-ray is negative for fracture. - Severe hypotension requiring pressors, resolved. - Congestive heart failure exacerbation with ejection fraction of 20% per last echo. Continue to remove fluids with hemodialysis. - Ascites, status post paracentesis on11/20, 12/02. S/p tunneled peritoneal drainage catheter placement 12/06. - End-stage renal disease, hemodialysis-dependent. Dr. Maddox is following from nephrology standpoint. Continue patient on hemodialysis. - Coronary artery disease status post coronary artery bypass graft. Continue patient on aspirin and Coreg. Dr. Cee is following from cardiology standpoint. - Hypothyroidism. TSH is 14, Synthroid increased to 125. - Diabetes mellitus type 2. Continue to monitor blood sugar with mild algorithm scale, NovoLog coverage. - Hemodialysis access, status post right AV fistulogram by Dr. Loco, vascular surgery on 11/21. - Liver cirrhosis and portal hypertension. Dr. Kirkpatrick is following in gastroenterology consultation. -Thrombocytopenia. Dr. Tapia is following in hematology consultation. Continue Protonix for peptic ulcer disease prophylaxis. Further recommendations based on clinical course. Plan of care discussed with Dr. Vick. Problems: Exam/Review of Systems Vital Signs Vitals Vital Signs Date Time Temp Pulse Resp B/P Pulse Ox O2 Delivery O2 Flow Rate FiO2 12/19/16 16:05 90 12/19/16 15:08 97.8 17 102/59 95 12/18/16 04:40 Room Air Intake and Output 12/18/16 12/18/16 12/19/16 15:00 23:00 07:00 Intake Total 200 ml 1320 ml 340 ml Output Total 2400 ml Balance -2200 ml 1320 ml 340 ml Exam GENERAL: well-developed, well-nourished male, currently is awake, alert. Left eyebrow abrasion and bruising. HEENT: Head is atraumatic, normocephalic. NECK: Supple. JVD is present, no cervical lymphadenopathy. CHEST: Lungs are clear bilaterally, slightly diminished at the bases. CARDIOVASCULAR: Regular rhythm and rate, normal S1, S2. No murmurs, gallops, clicks, rubs noted. The patient has a left chest permanent pacemaker with AICD. GASTROINTESTINAL: Abdomen is protuberant, soft, slightly distended, nontender. Bowel sounds present. No guarding, no rebound tenderness. SKIN: No rash, petechiae. EXTREMITIES: The patient has bilateral lower extremity edema, 3+. NEUROLOGIC: The patient is awake, alert and oriented x3. Results Result Diagram: 12/19/16 0555 12/19/16 0554 Results 24 hrs Laboratory Tests Test 12/18/16 17:29 12/19/16 05:54 12/19/16 05:55 12/19/16 07:29 Bedside Glucose 136 119 Anion Gap 15 Blood Urea Nitrogen 35 #H Calcium Level 6.5 L Carbon Dioxide Level 24 Chloride Level 98 Creatinine 5.31 #H Glucose Level 141 # Potassium Level 3.8 Sodium Level 133 L Basophils # 0.0 Basophils % 0.3 Eosinophils # 0.2 Eosinophils % 3.3 Hematocrit 30.2 L Hemoglobin 9.5 L Lymphocytes # 1.1 Lymphocytes % 19.5 Mean Corpuscular Hemoglobin 29.1 Mean Corpuscular Hemoglobin Concent 31.5 L Mean Corpuscular Volume 92.4 Mean Platelet Volume 11.5 H Monocytes # 0.6 Monocytes % 11.0 Neutrophils # 3.8 Neutrophils % 65.2 Nucleated Red Blood Cells # 0.0 Nucleated Red Blood Cells % 0.0 Platelet Count 48 #L Red Blood Count 3.27 L Red Cell Distribution Width 20.0 H White Blood Count 5.8 Test 12/19/16 11:32 12/19/16 16:15 Bedside Glucose 100 109 Medications Medications Current Medications Lorazepam (Ativan) 0.5 mg Q8H PRN PO ANXIETY Last administered on 12/19/16 10: 38; Admin Dose 0.5 MG; Start 11/20/16 at 12:00 Ondansetron HCl (Zofran Inj) 4 mg Q6H PRN IV NAUSEA AND/OR VOMITING Last administered on 11/23/16 05:32; Admin Dose 4 MG; Start 11/20/16 at 12:00 Nitroglycerin (Nitroglycerin (Sl Tab) 0.4 Mg) 1 tab Q5M PRN SL CHEST PAIN; Start 11/20/16 at 12:00 Zolpidem Tartrate (Ambien) 5 mg QHS PRN PO INSOMNIA; Start 11/20/16 at 12:00 Pantoprazole (Protonix Tab) 40 mg DAILY@06 PO Last administered on 12/19/16 06 :03; Admin Dose 40 MG; Start 11/21/16 at 06:00 Miscellaneous Information 1 ea NOTE XX ; Start 11/20/16 at 12:30 Glucose (Glutose) 15 gm Q15M PRN PO DECREASED GLUCOSE; Start 11/20/16 at 12:30 Glucose (Glutose) 22.5 gm Q15M PRN PO DECREASED GLUCOSE; Start 11/20/16 at 12: 30 Dextrose (D50w Syringe) 25 ml Q15M PRN IV DECREASED GLUCOSE; Start 11/20/16 at 12:30 Dextrose (D50w Syringe) 50 ml Q15M PRN IV DECREASED GLUCOSE; Start 11/20/16 at 12:30 Glucagon (Glucagen) 1 mg Q15M PRN IM DECREASED GLUCOSE; Start 11/20/16 at 12:30 Glucose (Glutose) 15 gm Q15M PRN BUCCAL DECREASED GLUCOSE Last administered on 12/12/16 08:29; Admin Dose 15 GM; Start 11/20/16 at 12:30 Levothyroxine Sodium (Synthroid) 125 mcg DAILY@06 PO Last administered on 06:03; Admin Dose 125 MCG; Start 11/22/16 at 06:00 Guaifenesin (Robitussin Liquid Cup) 100 mg Q6H PRN PO COUGH Last administered on 12/16/16 11:44; Admin Dose 100 MG; Start 11/23/16 at 16:30 IV Flush (NS 10 ml) 10 ml PRN PRN IV IV PROTOCOL; Start 11/24/16 at 15:30 Insulin Glargine 15 unit 15 unit HS SC Last administered on 12/17/16 22:37; Admin Dose 15 UNIT; Start 11/26/16 at 21:00 Albumin Human (Albumin Human 25%) 100 ml @ 100 mls/hr ONCE PRN IV after paracentesis; Start 12/02/16 at 02:00 Morphine Sulfate (morphine) 2 mg Q3H PRN IV PAIN LEVEL 7-10 Last administered on 12/19/16 16:11; Admin Dose 2 MG; Start 12/04/16 at 10:00 Acetaminophen (Tylenol Tab) 650 mg Q4H PRN PO PAIN LEVEL 1-3 OR FEVER Last administered on 12/11/16 01:53; Admin Dose 650 MG; Start 12/10/16 at 13:00 Midodrine (Proamatine) 5 mg TID PRN PO sbp<80 Last administered on 12/19/16 08 :08; Admin Dose 5 MG; Start 12/15/16 at 21:00 Doxycycline Hyclate (Vibramycin) 100 mg BID PO Last administered on 12/19/16 08:07; Admin Dose 100 MG; Start 12/17/16 at 21:00; Stop 01/19/17 at 22:00 Pyridoxine HCl 50 mg 50 mg DAILY PO Last administered on 12/19/16 08:07; Admin Dose 50 MG; Start 12/17/16 at 16:30 Sodium Chloride (NS) 1,000 ml @ 40 mls/hr Q24H IV Last administered on 16:11; Admin Dose 40 MLS/HR; Start 12/17/16 at 17:30 DICKSON GROSSMAN Dec 19, 2016 16:36
[2016-12-19] MEDS: INSULIN GLARGINE [LANtus] 3 ML PEN SC SCH (20:35)
--- NOTE | 2016-12-19 22:18 | CONS ---
Date/Time of Note Date/Time of Note DATE: 12/19/16 TIME: 22:13 Assessment/Plan Assessment/Plan Chief Complaint/Hosp Course Next HD in AM Problems: Additional Assessment/Plan Pt keeps draining peritoneal fluid on regular basis causing BP to drop Cont'd Hospitalization Reason: Pt still on Midodrin,, may have to increase dose to enable effective HD Consultation Date/Type/Reason Admit Date/Time Nov 20, 2016 at 09:34 Initial Consult Date 11/21/16 Type of Consultation: renal Referring Provider: DEMETRA BRUNO MD 24 HR Interval Summary Free Text/Dictation Clinically unchanged Exam/Review of Systems Vital Signs Vitals Vital Signs Date Time Temp Pulse Resp B/P Pulse Ox O2 Delivery O2 Flow Rate FiO2 12/19/16 20:27 86 12/19/16 20:08 97.6 18 86/53 96 12/18/16 04:40 Room Air Intake and Output 12/18/16 12/18/16 12/19/16 15:00 23:00 07:00 Intake Total 200 ml 1320 ml 340 ml Output Total 2400 ml Balance -2200 ml 1320 ml 340 ml Exam Constitutional: alert, oriented, well developed Psych: nl mood/affect, no complaints Head: atraumatic, normocephalic Eyes: EOMI, PERRL, nl conjunctiva, nl lids, nl sclera ENMT: nl external ears & nose, nl lips & teeth, nl nasal mucosa & septum Neck: non-tender, supple Respiratory: clear to auscultation, normal air movement Cardiovascular: nl pulses, regular rate and rhythm Gastrointestinal: ascites Musculoskeletal: nl extremities to inspection, nl gait and stance Extremities: edema, other (avf working in lt arm) 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: RUG SETTER VELVET 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, nl mental status, nl speech, nl strength Skin: nl turgor, No rash or lesions Lymph: nl lymph nodes Results Result Diagram: 12/19/16 0555 12/19/16 0554 Results 24 hrs Laboratory Tests Test 12/19/16 05:54 12/19/16 05:55 12/19/16 07:29 12/19/16 11:32 Anion Gap 15 Blood Urea Nitrogen 35 #H Calcium Level 6.5 L Carbon Dioxide Level 24 Chloride Level 98 Creatinine 5.31 #H Glucose Level 141 # Potassium Level 3.8 Sodium Level 133 L Basophils # 0.0 Basophils % 0.3 Eosinophils # 0.2 Eosinophils % 3.3 Hematocrit 30.2 L Hemoglobin 9.5 L Lymphocytes # 1.1 Lymphocytes % 19.5 Mean Corpuscular Hemoglobin 29.1 Mean Corpuscular Hemoglobin Concent 31.5 L Mean Corpuscular Volume 92.4 Mean Platelet Volume 11.5 H Monocytes # 0.6 Monocytes % 11.0 Neutrophils # 3.8 Neutrophils % 65.2 Nucleated Red Blood Cells # 0.0 Nucleated Red Blood Cells % 0.0 Platelet Count 48 #L Red Blood Count 3.27 L Red Cell Distribution Width 20.0 H White Blood Count 5.8 Bedside Glucose 119 100 Test 12/19/16 16:15 12/19/16 20:33 Bedside Glucose 109 136 Medications Medications Current Medications Lorazepam (Ativan) 0.5 mg Q8H PRN PO ANXIETY Last administered on 12/19/16 10: 38; Admin Dose 0.5 MG; Start 11/20/16 at 12:00 Ondansetron HCl (Zofran Inj) 4 mg Q6H PRN IV NAUSEA AND/OR VOMITING Last administered on 11/23/16 05:32; Admin Dose 4 MG; Start 11/20/16 at 12:00 Nitroglycerin (Nitroglycerin (Sl Tab) 0.4 Mg) 1 tab Q5M PRN SL CHEST PAIN; Start 11/20/16 at 12:00 Zolpidem Tartrate (Ambien) 5 mg QHS PRN PO INSOMNIA; Start 11/20/16 at 12:00 Pantoprazole (Protonix Tab) 40 mg DAILY@06 PO Last administered on 12/19/16 06 :03; Admin Dose 40 MG; Start 11/21/16 at 06:00 Miscellaneous Information 1 ea NOTE XX ; Start 11/20/16 at 12:30 Glucose (Glutose) 15 gm Q15M PRN PO DECREASED GLUCOSE; Start 11/20/16 at 12:30 Glucose (Glutose) 22.5 gm Q15M PRN PO DECREASED GLUCOSE; Start 11/20/16 at 12: 30 Dextrose (D50w Syringe) 25 ml Q15M PRN IV DECREASED GLUCOSE; Start 11/20/16 at 12:30 Dextrose (D50w Syringe) 50 ml Q15M PRN IV DECREASED GLUCOSE; Start 11/20/16 at 12:30 Glucagon (Glucagen) 1 mg Q15M PRN IM DECREASED GLUCOSE; Start 11/20/16 at 12:30 Glucose (Glutose) 15 gm Q15M PRN BUCCAL DECREASED GLUCOSE Last administered on 12/12/16 08:29; Admin Dose 15 GM; Start 11/20/16 at 12:30 Levothyroxine Sodium (Synthroid) 125 mcg DAILY@06 PO Last administered on 06:03; Admin Dose 125 MCG; Start 11/22/16 at 06:00 Guaifenesin (Robitussin Liquid Cup) 100 mg Q6H PRN PO COUGH Last administered on 12/16/16 11:44; Admin Dose 100 MG; Start 11/23/16 at 16:30 IV Flush (NS 10 ml) 10 ml PRN PRN IV IV PROTOCOL; Start 11/24/16 at 15:30 Insulin Glargine 15 unit 15 unit HS SC Last administered on 12/17/16 22:37; Admin Dose 15 UNIT; Start 11/26/16 at 21:00 Albumin Human (Albumin Human 25%) 100 ml @ 100 mls/hr ONCE PRN IV after paracentesis; Start 12/02/16 at 02:00 Morphine Sulfate (morphine) 2 mg Q3H PRN IV PAIN LEVEL 7-10 Last administered on 12/19/16 20:37; Admin Dose 2 MG; Start 12/04/16 at 10:00 Acetaminophen (Tylenol Tab) 650 mg Q4H PRN PO PAIN LEVEL 1-3 OR FEVER Last administered on 12/11/16 01:53; Admin Dose 650 MG; Start 12/10/16 at 13:00 Midodrine (Proamatine) 5 mg TID PRN PO sbp<80 Last administered on 12/19/16 08 :08; Admin Dose 5 MG; Start 12/15/16 at 21:00 Doxycycline Hyclate (Vibramycin) 100 mg BID PO Last administered on 12/19/16 20:35; Admin Dose 100 MG; Start 12/17/16 at 21:00; Stop 01/19/17 at 22:00 Pyridoxine HCl 50 mg 50 mg DAILY PO Last administered on 12/19/16 08:07; Admin Dose 50 MG; Start 12/17/16 at 16:30 Sodium Chloride (NS) 1,000 ml @ 40 mls/hr Q24H IV Last administered on t 16:11; Admin Dose 40 MLS/HR; Start 12/17/16 at 17:30 MILADY ANDERSON MD Dec 19, 2016 22:18
[2016-12-19] MEDS ORDERED: MIDODRINE 5 MG TAB PO PRN (22:30)
[2016-12-20] VITALS (21 sets, daily range): BP systolic 87–139; BP diastolic 50–67; PULSE 81–97; RESP 16–18
[2016-12-20] MEDS: morphine 2 MG INJ IV PRN ×7 (02:21→23:52)
[2016-12-20] MEDS: LEVOTHYROXINE 125 MCG TAB PO SCH (05:47)
[2016-12-20] MEDS: PANTOPRAZOLE (EC) 40 MG TAB PO SCH (05:47)
[2016-12-20 06:09] LABS: ADD SCAN DIFF NO
[2016-12-20 06:13] LABS: ABNORMAL IP MESSAGE 1; BASOPHILS % 0.4 % (0.0-2.0); EOSINOPHILS # 0.3 10^3/ul (0.0-0.5); EOSINOPHILS % 3.8 % (0.0-7.0); HEMATOCRIT 30.1 % (42.0-52.0); HEMOGLOBIN 9.5 g/dl (14.0-18.0); LYMPHOCYTES # 1.4 10^3/ul (0.8-2.9); LYMPHOCYTES % 19.4 % (15.0-51.0); MEAN CORPUSCULAR HGB CONC 31.6 g/dl (32.0-37.0); MEAN CORPUSCULAR VOLUME 91.8 fl (82.0-101.0); MEAN PLATELET VOLUME 10.2 fl (7.4-10.4); MONOCYTE # 0.6 10^3/ul (0.3-0.9); MONOCYTES % 8.7 % (0.0-11.0); NEUTROPHIL # 4.8 10^3/ul (1.6-7.5); NEUTROPHILS % 67.1 % (39.0-77.0); PLATELET COUNT 67 10^3/UL (140-415); RED BLOOD COUNT 3.28 10^6/ul (4.70-6.10); RED CELL DISTRIBUTION WIDTH 19.9 % (11.5-14.5); WHITE BLOOD COUNT 7.1 10^3/ul (4.8-10.8)
[2016-12-20 06:44] LABS: POTASSIUM 4.5 mmol/L (3.5-5.1)
[2016-12-20 06:47] LABS: CREATININE 6.16 mg/dl (0.61-1.24)
[2016-12-20 06:48] LABS: CALCIUM 6.7 mg/dl (8.4-10.2)
[2016-12-20] MEDS: INSULIN ASPART [NOVOLOG] 3 ML PEN SC SCH ×4 (07:55→20:56)
[2016-12-20] MEDS: DOXYCYCLINE 100 MG TAB PO SCH ×2 (08:37→20:52)
[2016-12-20] MEDS: PYRIDOXINE 50 MG TAB PO SCH (08:37)
--- NOTE | 2016-12-20 12:47 | CONS ---
Date/Time of Note Date/Time of Note DATE: 12/20/16 TIME: 12:46 Assessment/Plan Assessment/Plan Chief Complaint/Hosp Course 66 yo male with ESRD on HD and cirrhosis being treated for sepsis secondary to spontaneous bacterial peritonitis from and infected catheter. Since starting on antibiotics, namely vancomycin, patient's platelets have dramatically dropped in the absence of any obvious bleed. Vancomycin has since been held and pt is being continued on Doxycycline. Pt was given 1 dose of Heparin when he was first admitted. It is therefore worth ruling out HIT as a contributing cause of the thrombocytopenia. # Thrombocytopenia - likely secondary to cirrhosis and portal HTN in addition to effects of Vancomycin and underlying sepsis -agree with holding Vancomycin and continuing with Doxycycline -will order HIT panel -peripheral smear review not consistent with TTP. But will order LDH to complete workup -HIV and Hep panel are negative and therefore not contributing factors to thrombocytopenia -DIC panel ordered. INR at 1.2 which does not support DIC -continue to hold all anticoagulation -transfuse if platelets < 10, < 20 if febrile and < 50 if bleeding Approximately 40 min were spent at patient's bedside and in coordination of his care Problems: Consultation Date/Type/Reason Admit Date/Time Nov 20, 2016 at 09:34 Initial Consult Date 12/18/16 Type of Consultation: Hematology Reason for Consultation thrombocytopenia Referring Provider: DEMETRA BRUNO MD 24 HR Interval Summary Free Text/Dictation no acute overnight events. patient continues on HD. no bleeding. platelets continue to improve Exam/Review of Systems Vital Signs Vitals Vital Signs Date Time Temp Pulse Resp B/P Pulse Ox O2 Delivery O2 Flow Rate FiO2 12/20/16 12:30 94 12/20/16 11:11 98.5 18 139/59 92 12/18/16 04:40 Room Air Intake and Output 12/19/16 12/19/16 12/20/16 15:00 23:00 07:00 Intake Total 1150 ml 700 ml Output Total 150 ml Balance 1150 ml 550 ml Exam Constitutional: alert, oriented Psych: no complaints Head: atraumatic, normocephalic Eyes: nl conjunctiva ENMT: nl external ears & nose Neck: non-tender, supple Respiratory: clear to auscultation Cardiovascular: nl pulses, regular rate and rhythm Gastrointestinal: soft Musculoskeletal: nl extremities to inspection, nl gait and stance Results Result Diagram: 12/20/16 0545 12/20/16 0545 Results 24 hrs Laboratory Tests Test 12/19/16 16:15 12/19/16 20:33 12/20/16 05:45 12/20/16 07:18 Bedside Glucose 109 136 112 Anion Gap 16 Basophils # 0.0 Basophils % 0.4 Blood Urea Nitrogen 41 H Calcium Level 6.7 L Carbon Dioxide Level 22 Chloride Level 99 Creatinine 6.16 H Eosinophils # 0.3 Eosinophils % 3.8 Glucose Level 138 Hematocrit 30.1 L Hemoglobin 9.5 L Lymphocytes # 1.4 Lymphocytes % 19.4 Mean Corpuscular Hemoglobin 29.0 Mean Corpuscular Hemoglobin Concent 31.6 L Mean Corpuscular Volume 91.8 Mean Platelet Volume 10.2 Monocytes # 0.6 Monocytes % 8.7 Neutrophils # 4.8 Neutrophils % 67.1 Nucleated Red Blood Cells # 0.0 Nucleated Red Blood Cells % 0.0 Platelet Count 67 #L Potassium Level 4.5 Red Blood Count 3.28 L Red Cell Distribution Width 19.9 H Sodium Level 132 L White Blood Count 7.1 # Test 12/20/16 11:40 Bedside Glucose 148 Medications Medications Current Medications Lorazepam (Ativan) 0.5 mg Q8H PRN PO ANXIETY Last administered on 12/19/16 10: 38; Admin Dose 0.5 MG; Start 11/20/16 at 12:00 Ondansetron HCl (Zofran Inj) 4 mg Q6H PRN IV NAUSEA AND/OR VOMITING Last administered on 11/23/16 05:32; Admin Dose 4 MG; Start 11/20/16 at 12:00 Nitroglycerin (Nitroglycerin (Sl Tab) 0.4 Mg) 1 tab Q5M PRN SL CHEST PAIN; Start 11/20/16 at 12:00 Zolpidem Tartrate (Ambien) 5 mg QHS PRN PO INSOMNIA; Start 11/20/16 at 12:00 Pantoprazole (Protonix Tab) 40 mg DAILY@06 PO Last administered on 12/20/16 05: 47; Admin Dose 40 MG; Start 11/21/16 at 06:00 Miscellaneous Information 1 ea NOTE XX ; Start 11/20/16 at 12:30 Glucose (Glutose) 15 gm Q15M PRN PO DECREASED GLUCOSE; Start 11/20/16 at 12:30 Glucose (Glutose) 22.5 gm Q15M PRN PO DECREASED GLUCOSE; Start 11/20/16 at 12: 30 Dextrose (D50w Syringe) 25 ml Q15M PRN IV DECREASED GLUCOSE; Start 11/20/16 at 12:30 Dextrose (D50w Syringe) 50 ml Q15M PRN IV DECREASED GLUCOSE; Start 11/20/16 at 12:30 Glucagon (Glucagen) 1 mg Q15M PRN IM DECREASED GLUCOSE; Start 11/20/16 at 12:30 Glucose (Glutose) 15 gm Q15M PRN BUCCAL DECREASED GLUCOSE Last administered on 12/12/16 08:29; Admin Dose 15 GM; Start 11/20/16 at 12:30 Levothyroxine Sodium (Synthroid) 125 mcg DAILY@06 PO Last administered on 05:47; Admin Dose 125 MCG; Start 11/22/16 at 06:00 Guaifenesin (Robitussin Liquid Cup) 100 mg Q6H PRN PO COUGH Last administered on 12/16/16 11:44; Admin Dose 100 MG; Start 11/23/16 at 16:30 IV Flush (NS 10 ml) 10 ml PRN PRN IV IV PROTOCOL; Start 11/24/16 at 15:30 Insulin Glargine 15 unit 15 unit HS SC Last administered on 12/17/16 22:37; Admin Dose 15 UNIT; Start 11/26/16 at 21:00 Albumin Human (Albumin Human 25%) 100 ml @ 100 mls/hr ONCE PRN IV after paracentesis; Start 12/02/16 at 02:00 Morphine Sulfate (morphine) 2 mg Q3H PRN IV PAIN LEVEL 7-10 Last administered on 12/20/16 08:36; Admin Dose 2 MG; Start 12/04/16 at 10:00 Acetaminophen (Tylenol Tab) 650 mg Q4H PRN PO PAIN LEVEL 1-3 OR FEVER Last administered on 12/11/16 01:53; Admin Dose 650 MG; Start 12/10/16 at 13:00 Doxycycline Hyclate (Vibramycin) 100 mg BID PO Last administered on 12/20/16 08 :37; Admin Dose 100 MG; Start 12/17/16 at 21:00; Stop 01/19/17 at 22:00 Pyridoxine HCl 50 mg 50 mg DAILY PO Last administered on 12/20/16 08:37; Admin Dose 50 MG; Start 12/17/16 at 16:30 Sodium Chloride (NS) 1,000 ml @ 40 mls/hr Q24H IV Last administered on 16:11; Admin Dose 40 MLS/HR; Start 12/17/16 at 17:30 Midodrine (Proamatine) 10 mg TID PRN PO sbp<80; Start 12/19/16 at 22:30 OTILIO VELASQUEZ M.D. Dec 20, 2016 12:47
--- NOTE | 2016-12-20 13:28 | CONS ---
Date/Time of Note Date/Time of Note DATE: 12/20/16 TIME: 13:28 Assessment/Plan Assessment/Plan Additional Assessment/Plan 66 yo male with 1. Peritonitis 2. End-stage renal disease, on HD 3. End-stage liver disease with recurrent ascites 4. Ischemic cardiomyopathy. 5. Coronary artery disease, CABG 6. Anemia, Chronic 7. Borderline Hypotension, Asymptomatic S/p HD today Cont Maintenance HD schedule Next HD Sunday, MW Consultation Date/Type/Reason Admit Date/Time Nov 20, 2016 at 09:34 Initial Consult Date 11/21/16 Type of Consultation: Nephrology Referring Provider: DEMETRA BRUNO MD 24 HR Interval Summary Free Text/Dictation S/p HD this am, tolerated procedure, No complications reported Exam/Review of Systems Vital Signs Vitals Vital Signs Date Time Temp Pulse Resp B/P Pulse Ox O2 Delivery O2 Flow Rate FiO2 12/20/16 12:30 94 12/20/16 11:11 98.5 18 139/59 92 12/18/16 04:40 Room Air Intake and Output 12/19/16 12/19/16 12/20/16 15:00 23:00 07:00 Intake Total 1150 ml 700 ml Output Total 150 ml Balance 1150 ml 550 ml Exam Constitutional: alert, No distress ENMT: mucosa pink and moist Respiratory: clear to auscultation Cardiovascular: regular rate and rhythm, No edema Gastrointestinal: non-tender, soft 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: No lethargic Results Result Diagram: 12/20/16 0545 12/20/16 0545 Results 24 hrs Laboratory Tests Test 12/19/16 16:15 12/19/16 20:33 12/20/16 05:45 12/20/16 07:18 Bedside Glucose 109 136 112 Anion Gap 16 Basophils # 0.0 Basophils % 0.4 Blood Urea Nitrogen 41 H Calcium Level 6.7 L Carbon Dioxide Level 22 Chloride Level 99 Creatinine 6.16 H Eosinophils # 0.3 Eosinophils % 3.8 Glucose Level 138 Hematocrit 30.1 L Hemoglobin 9.5 L Lymphocytes # 1.4 Lymphocytes % 19.4 Mean Corpuscular Hemoglobin 29.0 Mean Corpuscular Hemoglobin Concent 31.6 L Mean Corpuscular Volume 91.8 Mean Platelet Volume 10.2 Monocytes # 0.6 Monocytes % 8.7 Neutrophils # 4.8 Neutrophils % 67.1 Nucleated Red Blood Cells # 0.0 Nucleated Red Blood Cells % 0.0 Platelet Count 67 #L Potassium Level 4.5 Red Blood Count 3.28 L Red Cell Distribution Width 19.9 H Sodium Level 132 L White Blood Count 7.1 # Test 12/20/16 11:40 Bedside Glucose 148 Medications Medications Current Medications Lorazepam (Ativan) 0.5 mg Q8H PRN PO ANXIETY Last administered on 12/19/16 10: 38; Admin Dose 0.5 MG; Start 11/20/16 at 12:00 Ondansetron HCl (Zofran Inj) 4 mg Q6H PRN IV NAUSEA AND/OR VOMITING Last administered on 11/23/16 05:32; Admin Dose 4 MG; Start 11/20/16 at 12:00 Nitroglycerin (Nitroglycerin (Sl Tab) 0.4 Mg) 1 tab Q5M PRN SL CHEST PAIN; Start 11/20/16 at 12:00 Zolpidem Tartrate (Ambien) 5 mg QHS PRN PO INSOMNIA; Start 11/20/16 at 12:00 Pantoprazole (Protonix Tab) 40 mg DAILY@06 PO Last administered on 12/20/16 05: 47; Admin Dose 40 MG; Start 11/21/16 at 06:00 Miscellaneous Information 1 ea NOTE XX ; Start 11/20/16 at 12:30 Glucose (Glutose) 15 gm Q15M PRN PO DECREASED GLUCOSE; Start 11/20/16 at 12:30 Glucose (Glutose) 22.5 gm Q15M PRN PO DECREASED GLUCOSE; Start 11/20/16 at 12: 30 Dextrose (D50w Syringe) 25 ml Q15M PRN IV DECREASED GLUCOSE; Start 11/20/16 at 12:30 Dextrose (D50w Syringe) 50 ml Q15M PRN IV DECREASED GLUCOSE; Start 11/20/16 at 12:30 Glucagon (Glucagen) 1 mg Q15M PRN IM DECREASED GLUCOSE; Start 11/20/16 at 12:30 Glucose (Glutose) 15 gm Q15M PRN BUCCAL DECREASED GLUCOSE Last administered on 12/12/16 08:29; Admin Dose 15 GM; Start 11/20/16 at 12:30 Levothyroxine Sodium (Synthroid) 125 mcg DAILY@06 PO Last administered on 05:47; Admin Dose 125 MCG; Start 11/22/16 at 06:00 Guaifenesin (Robitussin Liquid Cup) 100 mg Q6H PRN PO COUGH Last administered on 12/16/16 11:44; Admin Dose 100 MG; Start 11/23/16 at 16:30 IV Flush (NS 10 ml) 10 ml PRN PRN IV IV PROTOCOL; Start 11/24/16 at 15:30 Insulin Glargine 15 unit 15 unit HS SC Last administered on 12/17/16 22:37; Admin Dose 15 UNIT; Start 11/26/16 at 21:00 Albumin Human (Albumin Human 25%) 100 ml @ 100 mls/hr ONCE PRN IV after paracentesis; Start 12/02/16 at 02:00 Morphine Sulfate (morphine) 2 mg Q3H PRN IV PAIN LEVEL 7-10 Last administered on 12/20/16 13:11; Admin Dose 2 MG; Start 12/04/16 at 10:00 Acetaminophen (Tylenol Tab) 650 mg Q4H PRN PO PAIN LEVEL 1-3 OR FEVER Last administered on 12/11/16 01:53; Admin Dose 650 MG; Start 12/10/16 at 13:00 Doxycycline Hyclate (Vibramycin) 100 mg BID PO Last administered on 12/20/16 08 :37; Admin Dose 100 MG; Start 12/17/16 at 21:00; Stop 01/19/17 at 22:00 Pyridoxine HCl 50 mg 50 mg DAILY PO Last administered on 12/20/16 08:37; Admin Dose 50 MG; Start 12/17/16 at 16:30 Sodium Chloride (NS) 1,000 ml @ 40 mls/hr Q24H IV Last administered on 16:11; Admin Dose 40 MLS/HR; Start 12/17/16 at 17:30 Midodrine (Proamatine) 10 mg TID PRN PO sbp<80; Start 12/19/16 at 22:30 PARRISH DIEGO MD Dec 20, 2016 13:28
--- NOTE | 2016-12-20 14:12 | CONS ---
Date/Time of Note Date/Time of Note DATE: 12/20/16 TIME: 14:11 Assessment/Plan Assessment/Plan Additional Assessment/Plan Hypotension, intermittent AV fistula stenosis status post venoplasty Acute decompensated systolic and diastolic heart failure Cardiomyopathy, likely ischemic and nonischemic in origin with an ejection fraction less than 20%. (Denied cardiac transplant at [facility]) Biventricular pacemaker and ICD Mitral and tricuspid valve regurgitation. Severe pulmonary hypertension. End-stage renal disease on hemodialysis Ascites status post paracentesis Atrial fibrillation -Blood pressure trend overall stable, fluid management via hemodialysis as per our nephrology colleagues. Anticoagulation on hold secondary to thrombocytopenia, no new cardiac orders at the current time Consultation Date/Type/Reason Admit Date/Time Nov 20, 2016 at 09:34 Initial Consult Date 11/21/16 Type of Consultation: cv Referring Provider: DEMETRA BRUNO MD 24 HR Interval Summary Free Text/Dictation Patient finishing hemodialysis, denies chest pain, shortness of breath Exam/Review of Systems Vital Signs Vitals Vital Signs Date Time Temp Pulse Resp B/P Pulse Ox O2 Delivery O2 Flow Rate FiO2 12/20/16 12:40 92 18 12/20/16 11:11 98.5 139/59 92 12/18/16 04:40 Room Air Intake and Output 12/19/16 12/19/16 12/20/16 15:00 23:00 07:00 Intake Total 1150 ml 700 ml Output Total 150 ml Balance 1150 ml 550 ml Exam No apparent distress Constitutional: alert, frail, oriented Head: normocephalic Neck: supple Respiratory: other (Coarse breath sounds bilaterally, no wheezing) Cardiovascular: other (S1-S2 heard), regular rate and rhythm Gastrointestinal: ascites, bowel sounds, non-tender, other (No guarding), soft Extremities: edema Results Result Diagram: 12/20/16 0545 12/20/16 0545 Results 24 hrs Laboratory Tests Test 12/19/16 16:15 12/19/16 20:33 12/20/16 05:45 12/20/16 07:18 Bedside Glucose 109 136 112 Anion Gap 16 Basophils # 0.0 Basophils % 0.4 Blood Urea Nitrogen 41 H Calcium Level 6.7 L Carbon Dioxide Level 22 Chloride Level 99 Creatinine 6.16 H Eosinophils # 0.3 Eosinophils % 3.8 Glucose Level 138 Hematocrit 30.1 L Hemoglobin 9.5 L Lymphocytes # 1.4 Lymphocytes % 19.4 Mean Corpuscular Hemoglobin 29.0 Mean Corpuscular Hemoglobin Concent 31.6 L Mean Corpuscular Volume 91.8 Mean Platelet Volume 10.2 Monocytes # 0.6 Monocytes % 8.7 Neutrophils # 4.8 Neutrophils % 67.1 Nucleated Red Blood Cells # 0.0 Nucleated Red Blood Cells % 0.0 Platelet Count 67 #L Potassium Level 4.5 Red Blood Count 3.28 L Red Cell Distribution Width 19.9 H Sodium Level 132 L White Blood Count 7.1 # Test 12/20/16 11:40 Bedside Glucose 148 Medications Medications Current Medications Lorazepam (Ativan) 0.5 mg Q8H PRN PO ANXIETY Last administered on 12/19/16 10: 38; Admin Dose 0.5 MG; Start 11/20/16 at 12:00 Ondansetron HCl (Zofran Inj) 4 mg Q6H PRN IV NAUSEA AND/OR VOMITING Last administered on 11/23/16 05:32; Admin Dose 4 MG; Start 11/20/16 at 12:00 Nitroglycerin (Nitroglycerin (Sl Tab) 0.4 Mg) 1 tab Q5M PRN SL CHEST PAIN; Start 11/20/16 at 12:00 Zolpidem Tartrate (Ambien) 5 mg QHS PRN PO INSOMNIA; Start 11/20/16 at 12:00 Pantoprazole (Protonix Tab) 40 mg DAILY@06 PO Last administered on 12/20/16 05: 47; Admin Dose 40 MG; Start 11/21/16 at 06:00 Miscellaneous Information 1 ea NOTE XX ; Start 11/20/16 at 12:30 Glucose (Glutose) 15 gm Q15M PRN PO DECREASED GLUCOSE; Start 11/20/16 at 12:30 Glucose (Glutose) 22.5 gm Q15M PRN PO DECREASED GLUCOSE; Start 11/20/16 at 12: 30 Dextrose (D50w Syringe) 25 ml Q15M PRN IV DECREASED GLUCOSE; Start 11/20/16 at 12:30 Dextrose (D50w Syringe) 50 ml Q15M PRN IV DECREASED GLUCOSE; Start 11/20/16 at 12:30 Glucagon (Glucagen) 1 mg Q15M PRN IM DECREASED GLUCOSE; Start 11/20/16 at 12:30 Glucose (Glutose) 15 gm Q15M PRN BUCCAL DECREASED GLUCOSE Last administered on 12/12/16 08:29; Admin Dose 15 GM; Start 11/20/16 at 12:30 Levothyroxine Sodium (Synthroid) 125 mcg DAILY@06 PO Last administered on 05:47; Admin Dose 125 MCG; Start 11/22/16 at 06:00 Guaifenesin (Robitussin Liquid Cup) 100 mg Q6H PRN PO COUGH Last administered on 12/16/16 11:44; Admin Dose 100 MG; Start 11/23/16 at 16:30 IV Flush (NS 10 ml) 10 ml PRN PRN IV IV PROTOCOL; Start 11/24/16 at 15:30 Insulin Glargine 15 unit 15 unit HS SC Last administered on 12/17/16 22:37; Admin Dose 15 UNIT; Start 11/26/16 at 21:00 Albumin Human (Albumin Human 25%) 100 ml @ 100 mls/hr ONCE PRN IV after paracentesis; Start 12/02/16 at 02:00 Morphine Sulfate (morphine) 2 mg Q3H PRN IV PAIN LEVEL 7-10 Last administered on 12/20/16 13:11; Admin Dose 2 MG; Start 12/04/16 at 10:00 Acetaminophen (Tylenol Tab) 650 mg Q4H PRN PO PAIN LEVEL 1-3 OR FEVER Last administered on 12/11/16 01:53; Admin Dose 650 MG; Start 12/10/16 at 13:00 Doxycycline Hyclate (Vibramycin) 100 mg BID PO Last administered on 12/20/16 08 :37; Admin Dose 100 MG; Start 12/17/16 at 21:00; Stop 01/19/17 at 22:00 Pyridoxine HCl 50 mg 50 mg DAILY PO Last administered on 12/20/16 08:37; Admin Dose 50 MG; Start 12/17/16 at 16:30 Sodium Chloride (NS) 1,000 ml @ 40 mls/hr Q24H IV Last administered on 16:11; Admin Dose 40 MLS/HR; Start 12/17/16 at 17:30 Midodrine (Proamatine) 10 mg TID PRN PO sbp<80; Start 12/19/16 at 22:30 Harpreet Cee DO Dec 20, 2016 14:12
--- NOTE | 2016-12-20 16:10 | CONS ---
Date/Time of Note Date/Time of Note DATE: 12/20/16 TIME: 16:09 Assessment/Plan Assessment/Plan Chief Complaint/Hosp Course SUBJECTIVE: No acute changes. Patient is alert, feels good, no fevers. MICROBIOLOGY: Peritoneal fluid culture on admission grew coagulase-negative staph species. ANTIMICROBIALS: Doxycycline, status post vancomycin. INDWELLINGS: Right upper extremity AV fistula, left upper extremity PICC line. PHYSICAL EXAMINATION: GENERAL: This is a fragile, chronically ill-appearing, elderly man who is awake , in no distress. HEENT: Head atraumatic, normocephalic. Sclerae anicteric. Buccal mucosa dry. NECK: Supple, trachea midline. CHEST: Rise symmetrical. Breath sounds diminished. HEART: S1, S2. ABDOMEN: Obese, soft. EXTREMITIES: Without cyanosis. ASSESSMENT: 1. Peritonitis secondary to infected Pleurx catheter that was discontinued. 2. End-stage renal disease, hemodialysis dependent. 3. End-stage liver disease with recurrent ascites, status post Pleurx catheter placement and discontinuation. 4. Ischemic cardiomyopathy. 5. Coronary artery disease, history of coronary artery bypass graft. 6. Anemia with thrombocytopenia. PLAN: Patient remains stable. Continue present care. Continue on current antimicrobials for 7 more days. Hemodialysis per renal. GI rec-s DW pt Problems: Consultation Date/Type/Reason Admit Date/Time Nov 20, 2016 at 09:34 Initial Consult Date 12/18/16 Type of Consultation: ID Referring Provider: DEMETRA BRUNO MD Exam/Review of Systems Vital Signs Vitals Vital Signs Date Time Temp Pulse Resp B/P Pulse Ox O2 Delivery O2 Flow Rate FiO2 12/20/16 15:18 98.4 94 18 91/65 96 12/18/16 04:40 Room Air Intake and Output 12/19/16 12/19/16 12/20/16 15:00 23:00 07:00 Intake Total 1150 ml 700 ml Output Total 150 ml Balance 1150 ml 550 ml Results Result Diagram: 12/20/16 0545 12/20/16 0545 Results 24 hrs Laboratory Tests Test 12/19/16 16:15 12/19/16 20:33 12/20/16 05:45 12/20/16 07:18 Bedside Glucose 109 136 112 Anion Gap 16 Basophils # 0.0 Basophils % 0.4 Blood Urea Nitrogen 41 H Calcium Level 6.7 L Carbon Dioxide Level 22 Chloride Level 99 Creatinine 6.16 H Eosinophils # 0.3 Eosinophils % 3.8 Glucose Level 138 Hematocrit 30.1 L Hemoglobin 9.5 L Lymphocytes # 1.4 Lymphocytes % 19.4 Mean Corpuscular Hemoglobin 29.0 Mean Corpuscular Hemoglobin Concent 31.6 L Mean Corpuscular Volume 91.8 Mean Platelet Volume 10.2 Monocytes # 0.6 Monocytes % 8.7 Neutrophils # 4.8 Neutrophils % 67.1 Nucleated Red Blood Cells # 0.0 Nucleated Red Blood Cells % 0.0 Platelet Count 67 #L Potassium Level 4.5 Red Blood Count 3.28 L Red Cell Distribution Width 19.9 H Sodium Level 132 L White Blood Count 7.1 # Test 12/20/16 11:40 Bedside Glucose 148 Medications Medications Current Medications Lorazepam (Ativan) 0.5 mg Q8H PRN PO ANXIETY Last administered on 12/19/16 10: 38; Admin Dose 0.5 MG; Start 11/20/16 at 12:00 Ondansetron HCl (Zofran Inj) 4 mg Q6H PRN IV NAUSEA AND/OR VOMITING Last administered on 11/23/16 05:32; Admin Dose 4 MG; Start 11/20/16 at 12:00 Nitroglycerin (Nitroglycerin (Sl Tab) 0.4 Mg) 1 tab Q5M PRN SL CHEST PAIN; Start 11/20/16 at 12:00 Zolpidem Tartrate (Ambien) 5 mg QHS PRN PO INSOMNIA; Start 11/20/16 at 12:00 Pantoprazole (Protonix Tab) 40 mg DAILY@06 PO Last administered on 12/20/16 05: 47; Admin Dose 40 MG; Start 11/21/16 at 06:00 Miscellaneous Information 1 ea NOTE XX ; Start 11/20/16 at 12:30 Glucose (Glutose) 15 gm Q15M PRN PO DECREASED GLUCOSE; Start 11/20/16 at 12:30 Glucose (Glutose) 22.5 gm Q15M PRN PO DECREASED GLUCOSE; Start 11/20/16 at 12: 30 Dextrose (D50w Syringe) 25 ml Q15M PRN IV DECREASED GLUCOSE; Start 11/20/16 at 12:30 Dextrose (D50w Syringe) 50 ml Q15M PRN IV DECREASED GLUCOSE; Start 11/20/16 at 12:30 Glucagon (Glucagen) 1 mg Q15M PRN IM DECREASED GLUCOSE; Start 11/20/16 at 12:30 Glucose (Glutose) 15 gm Q15M PRN BUCCAL DECREASED GLUCOSE Last administered on 12/12/16 08:29; Admin Dose 15 GM; Start 11/20/16 at 12:30 Levothyroxine Sodium (Synthroid) 125 mcg DAILY@06 PO Last administered on 05:47; Admin Dose 125 MCG; Start 11/22/16 at 06:00 Guaifenesin (Robitussin Liquid Cup) 100 mg Q6H PRN PO COUGH Last administered on 12/16/16 11:44; Admin Dose 100 MG; Start 11/23/16 at 16:30 IV Flush (NS 10 ml) 10 ml PRN PRN IV IV PROTOCOL; Start 11/24/16 at 15:30 Insulin Glargine 15 unit 15 unit HS SC Last administered on 12/17/16 22:37; Admin Dose 15 UNIT; Start 11/26/16 at 21:00 Albumin Human (Albumin Human 25%) 100 ml @ 100 mls/hr ONCE PRN IV after paracentesis; Start 12/02/16 at 02:00 Morphine Sulfate (morphine) 2 mg Q3H PRN IV PAIN LEVEL 7-10 Last administered on 12/20/16 13:11; Admin Dose 2 MG; Start 12/04/16 at 10:00 Acetaminophen (Tylenol Tab) 650 mg Q4H PRN PO PAIN LEVEL 1-3 OR FEVER Last administered on 12/11/16 01:53; Admin Dose 650 MG; Start 12/10/16 at 13:00 Doxycycline Hyclate (Vibramycin) 100 mg BID PO Last administered on 12/20/16 08 :37; Admin Dose 100 MG; Start 12/17/16 at 21:00; Stop 01/19/17 at 22:00 Pyridoxine HCl 50 mg 50 mg DAILY PO Last administered on 12/20/16 08:37; Admin Dose 50 MG; Start 12/17/16 at 16:30 Sodium Chloride (NS) 1,000 ml @ 40 mls/hr Q24H IV Last administered on 16:11; Admin Dose 40 MLS/HR; Start 12/17/16 at 17:30 Midodrine (Proamatine) 10 mg TID PRN PO sbp<80; Start 12/19/16 at 22:30 SMITHA HERNANDEZ NP Dec 20, 2016 16:10
--- NOTE | 2016-12-20 17:45 | CONS ---
Date/Time of Note Date/Time of Note DATE: 12/20/16 TIME: 17:44 Assessment/Plan Assessment/Plan Additional Assessment/Plan Additional Assessment/Plan ASSESSMENT: 1. Refractory ascites. 2. Ischemic cardiomyopathy. 3. End-stage renal disease. 4. Cirrhosis of liver. 5.s/p pleurex drain for ascites,3 liters removed today 6.leaking around Pleurex 7. left hip pain 8. SBP,wbc 3600 9.hypotension 10 thrombocytopenia,better Plan drain ascitic fluid PRN PT antibiotic as per ID d/c drainage catheter,done continue antibiotic fluid for cytology ,not done juan c fetoprotein Consultation Date/Type/Reason Admit Date/Time Nov 20, 2016 at 09:34 Initial Consult Date 11/21/16 Type of Consultation: ID Referring Provider: DEMETRA BRUNO MD 24 HR Interval Summary Constitutional: improved, no complaints Exam/Review of Systems Vital Signs Vitals Vital Signs Date Time Temp Pulse Resp B/P Pulse Ox O2 Delivery O2 Flow Rate FiO2 12/20/16 16:34 92 12/20/16 15:18 98.4 18 91/65 96 12/18/16 04:40 Room Air Intake and Output 12/19/16 12/19/16 12/20/16 15:00 23:00 07:00 Intake Total 1150 ml 700 ml Output Total 150 ml Balance 1150 ml 550 ml Exam Constitutional: alert, oriented, well developed Psych: nl mood/affect, no complaints Head: atraumatic, normocephalic Eyes: EOMI, PERRL, nl conjunctiva, nl lids, nl sclera ENMT: nl external ears & nose, nl lips & teeth, nl nasal mucosa & septum Neck: non-tender, supple Respiratory: clear to auscultation, normal air movement Cardiovascular: nl pulses, regular rate and rhythm Gastrointestinal: nl liver, spleen, non-tender, soft Musculoskeletal: nl extremities to inspection, nl gait and stance Extremities: normal pulses 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: [employer] 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, nl mental status, nl speech, nl strength Skin: nl turgor, No rash or lesions Lymph: nl lymph nodes Results Result Diagram: 12/20/16 0545 12/20/16 0545 Results 24 hrs Laboratory Tests Test 12/19/16 20:33 12/20/16 05:45 12/20/16 07:18 12/20/16 11:40 Bedside Glucose 136 112 148 Anion Gap 16 Basophils # 0.0 Basophils % 0.4 Blood Urea Nitrogen 41 H Calcium Level 6.7 L Carbon Dioxide Level 22 Chloride Level 99 Creatinine 6.16 H Eosinophils # 0.3 Eosinophils % 3.8 Glucose Level 138 Hematocrit 30.1 L Hemoglobin 9.5 L Lymphocytes # 1.4 Lymphocytes % 19.4 Mean Corpuscular Hemoglobin 29.0 Mean Corpuscular Hemoglobin Concent 31.6 L Mean Corpuscular Volume 91.8 Mean Platelet Volume 10.2 Monocytes # 0.6 Monocytes % 8.7 Neutrophils # 4.8 Neutrophils % 67.1 Nucleated Red Blood Cells # 0.0 Nucleated Red Blood Cells % 0.0 Platelet Count 67 #L Potassium Level 4.5 Red Blood Count 3.28 L Red Cell Distribution Width 19.9 H Sodium Level 132 L White Blood Count 7.1 # Test 12/20/16 16:37 Bedside Glucose 131 Medications Medications Current Medications Lorazepam (Ativan) 0.5 mg Q8H PRN PO ANXIETY Last administered on 12/19/16 10: 38; Admin Dose 0.5 MG; Start 11/20/16 at 12:00 Ondansetron HCl (Zofran Inj) 4 mg Q6H PRN IV NAUSEA AND/OR VOMITING Last administered on 11/23/16 05:32; Admin Dose 4 MG; Start 11/20/16 at 12:00 Nitroglycerin (Nitroglycerin (Sl Tab) 0.4 Mg) 1 tab Q5M PRN SL CHEST PAIN; Start 11/20/16 at 12:00 Zolpidem Tartrate (Ambien) 5 mg QHS PRN PO INSOMNIA; Start 11/20/16 at 12:00 Pantoprazole (Protonix Tab) 40 mg DAILY@06 PO Last administered on 12/20/16 05: 47; Admin Dose 40 MG; Start 11/21/16 at 06:00 Miscellaneous Information 1 ea NOTE XX ; Start 11/20/16 at 12:30 Glucose (Glutose) 15 gm Q15M PRN PO DECREASED GLUCOSE; Start 11/20/16 at 12:30 Glucose (Glutose) 22.5 gm Q15M PRN PO DECREASED GLUCOSE; Start 11/20/16 at 12: 30 Dextrose (D50w Syringe) 25 ml Q15M PRN IV DECREASED GLUCOSE; Start 11/20/16 at 12:30 Dextrose (D50w Syringe) 50 ml Q15M PRN IV DECREASED GLUCOSE; Start 11/20/16 at 12:30 Glucagon (Glucagen) 1 mg Q15M PRN IM DECREASED GLUCOSE; Start 11/20/16 at 12:30 Glucose (Glutose) 15 gm Q15M PRN BUCCAL DECREASED GLUCOSE Last administered on 12/12/16 08:29; Admin Dose 15 GM; Start 11/20/16 at 12:30 Levothyroxine Sodium (Synthroid) 125 mcg DAILY@06 PO Last administered on 05:47; Admin Dose 125 MCG; Start 11/22/16 at 06:00 Guaifenesin (Robitussin Liquid Cup) 100 mg Q6H PRN PO COUGH Last administered on 12/16/16 11:44; Admin Dose 100 MG; Start 11/23/16 at 16:30 IV Flush (NS 10 ml) 10 ml PRN PRN IV IV PROTOCOL; Start 11/24/16 at 15:30 Insulin Glargine 15 unit 15 unit HS SC Last administered on 12/17/16 22:37; Admin Dose 15 UNIT; Start 11/26/16 at 21:00 Albumin Human (Albumin Human 25%) 100 ml @ 100 mls/hr ONCE PRN IV after paracentesis; Start 12/02/16 at 02:00 Morphine Sulfate (morphine) 2 mg Q3H PRN IV PAIN LEVEL 7-10 Last administered on 12/20/16 16:34; Admin Dose 2 MG; Start 12/04/16 at 10:00 Acetaminophen (Tylenol Tab) 650 mg Q4H PRN PO PAIN LEVEL 1-3 OR FEVER Last administered on 12/11/16 01:53; Admin Dose 650 MG; Start 12/10/16 at 13:00 Doxycycline Hyclate (Vibramycin) 100 mg BID PO Last administered on 12/20/16 08 :37; Admin Dose 100 MG; Start 12/17/16 at 21:00; Stop 01/19/17 at 22:00 Pyridoxine HCl (Vitamin B6) 50 mg DAILY PO Last administered on 12/20/16 08:37 ; Admin Dose 50 MG; Start 12/17/16 at 16:30 Midodrine (Proamatine) 10 mg TID PRN PO sbp<80; Start 12/19/16 at 22:30 LOR MASON MD Dec 20, 2016 17:45
--- NOTE | 2016-12-20 17:51 | PN ---
Date/Time of Note Date/Time of Note DATE: 12/20/16 TIME: 17:50 Assessment/Plan VTE Prophylaxis VTE Prophylaxis Intervention: SCD's Lines/Catheters IV [facility] P[facility] Line Urinary Cath still in place: No Assessment/Plan Chief Complaint/Hosp Course ASSESSMENT AND PLAN: - Peritonitis, s/p DC peritoneal catheter, continue antibiotics per ID. Dr. Stokes is following an infection disease consultation. - Status post mechanical fall. Brain CT is negative, hip x-ray is negative for fracture. - Severe hypotension requiring pressors, resolved. - Congestive heart failure exacerbation with ejection fraction of 20% per last echo. Continue to remove fluids with hemodialysis. - Ascites, status post paracentesis on11/20, 12/02. S/p tunneled peritoneal drainage catheter placement 12/06. - End-stage renal disease, hemodialysis-dependent. Dr. Maddox is following from nephrology standpoint. Continue patient on hemodialysis. - Coronary artery disease status post coronary artery bypass graft. Continue patient on aspirin and Coreg. Dr. Cee is following from cardiology standpoint. - Hypothyroidism. TSH is 14, Synthroid increased to 125. - Diabetes mellitus type 2. Continue to monitor blood sugar with mild algorithm scale, NovoLog coverage. - Hemodialysis access, status post right AV fistulogram by Dr. Loco, vascular surgery on 11/21. - Liver cirrhosis and portal hypertension. Dr. Kirkpatrick is following in gastroenterology consultation. -Thrombocytopenia. Dr. Tapia is following in hematology consultation. Continue Protonix for peptic ulcer disease prophylaxis. Further recommendations based on clinical course. Plan of care discussed with Dr. Vick. Problems: Subjective 24 Hr Interval Summary Free Text/Dictation Patient denies N/v, fever, generalized weakness. Exam/Review of Systems Vital Signs Vitals Vital Signs Date Time Temp Pulse Resp B/P Pulse Ox O2 Delivery O2 Flow Rate FiO2 12/20/16 16:34 92 12/20/16 15:18 98.4 18 91/65 96 12/18/16 04:40 Room Air Intake and Output 12/19/16 12/19/16 12/20/16 15:00 23:00 07:00 Intake Total 1150 ml 700 ml Output Total 150 ml Balance 1150 ml 550 ml Exam GENERAL: well-developed, well-nourished male, currently is awake, alert. Left eyebrow abrasion and bruising. HEENT: Head is atraumatic, normocephalic. NECK: Supple. JVD is present, no cervical lymphadenopathy. CHEST: Lungs are clear bilaterally, slightly diminished at the bases. CARDIOVASCULAR: Regular rhythm and rate, normal S1, S2. No murmurs, gallops, clicks, rubs noted. The patient has a left chest permanent pacemaker with AICD. GASTROINTESTINAL: Abdomen is protuberant, soft, slightly distended, nontender. Bowel sounds present. No guarding, no rebound tenderness. SKIN: No rash, petechiae. EXTREMITIES: The patient has bilateral lower extremity edema, 3+. NEUROLOGIC: The patient is awake, alert and oriented x3. Results Result Diagram: 12/20/16 0545 12/20/16 0545 Results 24 hrs Laboratory Tests Test 12/19/16 20:33 12/20/16 05:45 12/20/16 07:18 12/20/16 11:40 Bedside Glucose 136 112 148 Anion Gap 16 Basophils # 0.0 Basophils % 0.4 Blood Urea Nitrogen 41 H Calcium Level 6.7 L Carbon Dioxide Level 22 Chloride Level 99 Creatinine 6.16 H Eosinophils # 0.3 Eosinophils % 3.8 Glucose Level 138 Hematocrit 30.1 L Hemoglobin 9.5 L Lymphocytes # 1.4 Lymphocytes % 19.4 Mean Corpuscular Hemoglobin 29.0 Mean Corpuscular Hemoglobin Concent 31.6 L Mean Corpuscular Volume 91.8 Mean Platelet Volume 10.2 Monocytes # 0.6 Monocytes % 8.7 Neutrophils # 4.8 Neutrophils % 67.1 Nucleated Red Blood Cells # 0.0 Nucleated Red Blood Cells % 0.0 Platelet Count 67 #L Potassium Level 4.5 Red Blood Count 3.28 L Red Cell Distribution Width 19.9 H Sodium Level 132 L White Blood Count 7.1 # Test 12/20/16 16:37 Bedside Glucose 131 Medications Medications Current Medications Lorazepam (Ativan) 0.5 mg Q8H PRN PO ANXIETY Last administered on 12/19/16 10: 38; Admin Dose 0.5 MG; Start 11/20/16 at 12:00 Ondansetron HCl (Zofran Inj) 4 mg Q6H PRN IV NAUSEA AND/OR VOMITING Last administered on 11/23/16 05:32; Admin Dose 4 MG; Start 11/20/16 at 12:00 Nitroglycerin (Nitroglycerin (Sl Tab) 0.4 Mg) 1 tab Q5M PRN SL CHEST PAIN; Start 11/20/16 at 12:00 Zolpidem Tartrate (Ambien) 5 mg QHS PRN PO INSOMNIA; Start 11/20/16 at 12:00 Pantoprazole (Protonix Tab) 40 mg DAILY@06 PO Last administered on 12/20/16 05: 47; Admin Dose 40 MG; Start 11/21/16 at 06:00 Miscellaneous Information 1 ea NOTE XX ; Start 11/20/16 at 12:30 Glucose (Glutose) 15 gm Q15M PRN PO DECREASED GLUCOSE; Start 11/20/16 at 12:30 Glucose (Glutose) 22.5 gm Q15M PRN PO DECREASED GLUCOSE; Start 11/20/16 at 12: 30 Dextrose (D50w Syringe) 25 ml Q15M PRN IV DECREASED GLUCOSE; Start 11/20/16 at 12:30 Dextrose (D50w Syringe) 50 ml Q15M PRN IV DECREASED GLUCOSE; Start 11/20/16 at 12:30 Glucagon (Glucagen) 1 mg Q15M PRN IM DECREASED GLUCOSE; Start 11/20/16 at 12:30 Glucose (Glutose) 15 gm Q15M PRN BUCCAL DECREASED GLUCOSE Last administered on 12/12/16 08:29; Admin Dose 15 GM; Start 11/20/16 at 12:30 Levothyroxine Sodium (Synthroid) 125 mcg DAILY@06 PO Last administered on 05:47; Admin Dose 125 MCG; Start 11/22/16 at 06:00 Guaifenesin (Robitussin Liquid Cup) 100 mg Q6H PRN PO COUGH Last administered on 12/16/16 11:44; Admin Dose 100 MG; Start 11/23/16 at 16:30 IV Flush (NS 10 ml) 10 ml PRN PRN IV IV PROTOCOL; Start 11/24/16 at 15:30 Insulin Glargine 15 unit 15 unit HS SC Last administered on 12/17/16 22:37; Admin Dose 15 UNIT; Start 11/26/16 at 21:00 Albumin Human (Albumin Human 25%) 100 ml @ 100 mls/hr ONCE PRN IV after paracentesis; Start 12/02/16 at 02:00 Morphine Sulfate (morphine) 2 mg Q3H PRN IV PAIN LEVEL 7-10 Last administered on 12/20/16 16:34; Admin Dose 2 MG; Start 12/04/16 at 10:00 Acetaminophen (Tylenol Tab) 650 mg Q4H PRN PO PAIN LEVEL 1-3 OR FEVER Last administered on 12/11/16 01:53; Admin Dose 650 MG; Start 12/10/16 at 13:00 Doxycycline Hyclate (Vibramycin) 100 mg BID PO Last administered on 12/20/16 08 :37; Admin Dose 100 MG; Start 12/17/16 at 21:00; Stop 01/19/17 at 22:00 Pyridoxine HCl (Vitamin B6) 50 mg DAILY PO Last administered on 12/20/16 08:37 ; Admin Dose 50 MG; Start 12/17/16 at 16:30 Midodrine (Proamatine) 10 mg TID PRN PO sbp<80; Start 12/19/16 at 22:30 DICKSON GROSSMAN Dec 20, 2016 17:51
[2016-12-20] MEDS: INSULIN GLARGINE [LANtus] 3 ML PEN SC SCH (20:50)
[2016-12-20 23:54] LABS: HEPARIN INDUCED PLATELET AB NEGATIVE (NEGATIVE)
[2016-12-21] VITALS (12 sets, daily range): BP systolic 84–105; BP diastolic 38–62; PULSE 79–103; RESP 16–20
[2016-12-21] MEDS: morphine 2 MG INJ IV PRN ×6 (04:04→23:24)
[2016-12-21] MEDS: LEVOTHYROXINE 125 MCG TAB PO SCH (05:07)
[2016-12-21] MEDS: PANTOPRAZOLE (EC) 40 MG TAB PO SCH (05:08)
[2016-12-21 06:57] LABS: ADD SCAN DIFF NO
[2016-12-21 07:01] LABS: ABNORMAL IP MESSAGE 1; BASOPHILS % 0.4 % (0.0-2.0); EOSINOPHILS # 0.2 10^3/ul (0.0-0.5); EOSINOPHILS % 3.1 % (0.0-7.0); HEMATOCRIT 28.6 % (42.0-52.0); HEMOGLOBIN 9.2 g/dl (14.0-18.0); LYMPHOCYTES # 1.3 10^3/ul (0.8-2.9); MEAN CORPUSCULAR HEMOGLOBIN 29.4 pg (29.0-33.0); MEAN CORPUSCULAR HGB CONC 32.2 g/dl (32.0-37.0); MEAN CORPUSCULAR VOLUME 91.4 fl (82.0-101.0); MEAN PLATELET VOLUME 9.8 fl (7.4-10.4); MONOCYTE # 0.6 10^3/ul (0.3-0.9); NEUTROPHIL # 4.9 10^3/ul (1.6-7.5); NEUTROPHILS % 69.9 % (39.0-77.0); RED BLOOD COUNT 3.13 10^6/ul (4.70-6.10); RED CELL DISTRIBUTION WIDTH 19.9 % (11.5-14.5)
[2016-12-21 07:02] LABS: POTASSIUM 4.2 mmol/L (3.5-5.1)
[2016-12-21 07:04] LABS: CREATININE 5.57 mg/dl (0.61-1.24)
[2016-12-21 07:05] LABS: CALCIUM 7.2 mg/dl (8.4-10.2)
[2016-12-21 07:12] LABS: PLATELET COUNT 82 10^3/UL (140-415)
[2016-12-21] MEDS: INSULIN ASPART [NOVOLOG] 3 ML PEN SC SCH ×4 (07:55→20:58)
[2016-12-21] MEDS: DOXYCYCLINE 100 MG TAB PO SCH ×2 (08:59→20:59)
[2016-12-21] MEDS: PYRIDOXINE 50 MG TAB PO SCH (08:59)
--- NOTE | 2016-12-21 10:43 | CONS ---
Date/Time of Note Date/Time of Note DATE: 12/21/16 TIME: 10:42 Assessment/Plan Assessment/Plan Additional Assessment/Plan Additional Assessment/Plan ASSESSMENT: 1. Refractory ascites. 2. Ischemic cardiomyopathy. 3. End-stage renal disease. 4. Cirrhosis of liver. 5.s/p pleurex drain for ascites,3 liters removed today 6.leaking around Pleurex 7. left hip pain 8. SBP,wbc 3600 9.hypotension 10 thrombocytopenia,better Plan drain ascitic fluid PRN PT antibiotic as per ID d/c drainage catheter,done continue antibiotic fluid for cytology ,not done juan c fetoprotein WNL Consultation Date/Type/Reason Admit Date/Time Nov 20, 2016 at 09:34 Initial Consult Date 11/21/16 Type of Consultation: ID Referring Provider: DEMETRA BRUNO MD 24 HR Interval Summary Constitutional: improved, no complaints Exam/Review of Systems Vital Signs Vitals Vital Signs Date Time Temp Pulse Resp B/P Pulse Ox O2 Delivery O2 Flow Rate FiO2 12/21/16 08:24 90 12/21/16 07:12 98.2 20 92/62 93 12/18/16 04:40 Room Air Intake and Output 12/20/16 12/20/16 12/21/16 15:00 23:00 07:00 Intake Total 500 ml 900 ml 400 ml Output Total 3500 ml 275 ml Balance -3000 ml 900 ml 125 ml Exam Constitutional: alert, oriented, well developed Psych: nl mood/affect, no complaints Eyes: EOMI, PERRL, nl conjunctiva, nl lids, nl sclera Neck: non-tender, supple Respiratory: clear to auscultation, normal air movement Cardiovascular: nl pulses, regular rate and rhythm Gastrointestinal: ascites Results Result Diagram: 12/21/16 0604 12/21/16 0604 Results 24 hrs Laboratory Tests Test 12/20/16 11:40 12/20/16 16:37 12/20/16 20:48 12/21/16 06:04 Bedside Glucose 148 131 120 Alpha Fetoprotein 1.73 Anion Gap 14 Basophils # 0.0 Basophils % 0.4 Blood Urea Nitrogen 40 H Calcium Level 7.2 L Carbon Dioxide Level 27 Chloride Level 95 L Creatinine 5.57 H Eosinophils # 0.2 Eosinophils % 3.1 Glucose Level 99 Hematocrit 28.6 L Hemoglobin 9.2 L Lymphocytes # 1.3 Lymphocytes % 18.0 Mean Corpuscular Hemoglobin 29.4 Mean Corpuscular Hemoglobin Concent 32.2 Mean Corpuscular Volume 91.4 Mean Platelet Volume 9.8 Monocytes # 0.6 Monocytes % 8.0 Neutrophils # 4.9 Neutrophils % 69.9 Nucleated Red Blood Cells # 0.0 Nucleated Red Blood Cells % 0.0 Platelet Count 82 #L Potassium Level 4.2 Red Blood Count 3.13 L Red Cell Distribution Width 19.9 H Sodium Level 132 L White Blood Count 7.0 Test 12/21/16 07:38 Bedside Glucose 109 Medications Medications Current Medications Lorazepam (Ativan) 0.5 mg Q8H PRN PO ANXIETY Last administered on 12/19/16 10: 38; Admin Dose 0.5 MG; Start 11/20/16 at 12:00 Ondansetron HCl (Zofran Inj) 4 mg Q6H PRN IV NAUSEA AND/OR VOMITING Last administered on 11/23/16 05:32; Admin Dose 4 MG; Start 11/20/16 at 12:00 Nitroglycerin (Nitroglycerin (Sl Tab) 0.4 Mg) 1 tab Q5M PRN SL CHEST PAIN; Start 11/20/16 at 12:00 Zolpidem Tartrate (Ambien) 5 mg QHS PRN PO INSOMNIA; Start 11/20/16 at 12:00 Pantoprazole (Protonix Tab) 40 mg DAILY@06 PO Last administered on 12/21/16 05: 08; Admin Dose 40 MG; Start 11/21/16 at 06:00 Miscellaneous Information 1 ea NOTE XX ; Start 11/20/16 at 12:30 Glucose (Glutose) 15 gm Q15M PRN PO DECREASED GLUCOSE; Start 11/20/16 at 12:30 Glucose (Glutose) 22.5 gm Q15M PRN PO DECREASED GLUCOSE; Start 11/20/16 at 12: 30 Dextrose (D50w Syringe) 25 ml Q15M PRN IV DECREASED GLUCOSE; Start 11/20/16 at 12:30 Dextrose (D50w Syringe) 50 ml Q15M PRN IV DECREASED GLUCOSE; Start 11/20/16 at 12:30 Glucagon (Glucagen) 1 mg Q15M PRN IM DECREASED GLUCOSE; Start 11/20/16 at 12:30 Glucose (Glutose) 15 gm Q15M PRN BUCCAL DECREASED GLUCOSE Last administered on 12/12/16 08:29; Admin Dose 15 GM; Start 11/20/16 at 12:30 Levothyroxine Sodium (Synthroid) 125 mcg DAILY@06 PO Last administered on 05:07; Admin Dose 125 MCG; Start 11/22/16 at 06:00 Guaifenesin (Robitussin Liquid Cup) 100 mg Q6H PRN PO COUGH Last administered on 12/16/16 11:44; Admin Dose 100 MG; Start 11/23/16 at 16:30 IV Flush (NS 10 ml) 10 ml PRN PRN IV IV PROTOCOL; Start 11/24/16 at 15:30 Insulin Glargine 15 unit 15 unit HS SC Last administered on 12/17/16 22:37; Admin Dose 15 UNIT; Start 11/26/16 at 21:00 Albumin Human (Albumin Human 25%) 100 ml @ 100 mls/hr ONCE PRN IV after paracentesis; Start 12/02/16 at 02:00 Morphine Sulfate (morphine) 2 mg Q3H PRN IV PAIN LEVEL 7-10 Last administered on 12/21/16 08:59; Admin Dose 2 MG; Start 12/04/16 at 10:00 Acetaminophen (Tylenol Tab) 650 mg Q4H PRN PO PAIN LEVEL 1-3 OR FEVER Last administered on 12/11/16 01:53; Admin Dose 650 MG; Start 12/10/16 at 13:00 Doxycycline Hyclate (Vibramycin) 100 mg BID PO Last administered on 12/21/16 08 :59; Admin Dose 100 MG; Start 12/17/16 at 21:00; Stop 01/19/17 at 22:00 Pyridoxine HCl (Vitamin B6) 50 mg DAILY PO Last administered on 12/21/16 08:59 ; Admin Dose 50 MG; Start 12/17/16 at 16:30 Midodrine (Proamatine) 10 mg TID PRN PO sbp<80; Start 12/19/16 at 22:30 LOR MASON MD Dec 21, 2016 10:43
--- NOTE | 2016-12-21 12:21 | CONS ---
Date/Time of Note Date/Time of Note DATE: 12/21/16 TIME: 12:20 Assessment/Plan Assessment/Plan Chief Complaint/Hosp Course SUBJECTIVE: No acute changes. Patient is alert, feels better, no fevers. MICROBIOLOGY: Peritoneal fluid culture on admission grew coagulase-negative staph species. ANTIMICROBIALS: Doxycycline, status post vancomycin. INDWELLINGS: Right upper extremity AV fistula, left upper extremity PICC line. PHYSICAL EXAMINATION: GENERAL: This is a fragile, chronically ill-appearing, elderly man who is awake , in no distress. HEENT: Head atraumatic, normocephalic. Sclerae anicteric. Buccal mucosa dry. NECK: Supple, trachea midline. CHEST: Rise symmetrical. Breath sounds diminished. HEART: S1, S2. ABDOMEN: Obese, soft. EXTREMITIES: Without cyanosis. ASSESSMENT: 1. Peritonitis secondary to infected Pleurx catheter that was discontinued. 2. End-stage renal disease, hemodialysis dependent. 3. End-stage liver disease with recurrent ascites, status post Pleurx catheter placement and discontinuation. 4. Ischemic cardiomyopathy. 5. Coronary artery disease, history of coronary artery bypass graft. 6. Anemia with thrombocytopenia. PLAN: Patient remains stable. Continue on current antimicrobials for 6 more days. Hemodialysis per renal. GI rec-s DW pt Problems: Consultation Date/Type/Reason Admit Date/Time Nov 20, 2016 at 09:34 Initial Consult Date 12/18/16 Type of Consultation: ID Referring Provider: DEMETRA BRUNO MD Exam/Review of Systems Vital Signs Vitals Vital Signs Date Time Temp Pulse Resp B/P Pulse Ox O2 Delivery O2 Flow Rate FiO2 12/21/16 11:49 97.7 66 20 91/50 94 12/18/16 04:40 Room Air Intake and Output 12/20/16 12/20/16 12/21/16 15:00 23:00 07:00 Intake Total 500 ml 900 ml 400 ml Output Total 3500 ml 275 ml Balance -3000 ml 900 ml 125 ml Results Result Diagram: 12/21/16 0604 12/21/16 0604 Results 24 hrs Laboratory Tests Test 12/20/16 16:37 12/20/16 20:48 12/21/16 06:04 12/21/16 07:38 Bedside Glucose 131 120 109 Alpha Fetoprotein 1.73 Anion Gap 14 Basophils # 0.0 Basophils % 0.4 Blood Urea Nitrogen 40 H Calcium Level 7.2 L Carbon Dioxide Level 27 Chloride Level 95 L Creatinine 5.57 H Eosinophils # 0.2 Eosinophils % 3.1 Glucose Level 99 Hematocrit 28.6 L Hemoglobin 9.2 L Lymphocytes # 1.3 Lymphocytes % 18.0 Mean Corpuscular Hemoglobin 29.4 Mean Corpuscular Hemoglobin Concent 32.2 Mean Corpuscular Volume 91.4 Mean Platelet Volume 9.8 Monocytes # 0.6 Monocytes % 8.0 Neutrophils # 4.9 Neutrophils % 69.9 Nucleated Red Blood Cells # 0.0 Nucleated Red Blood Cells % 0.0 Platelet Count 82 #L Potassium Level 4.2 Red Blood Count 3.13 L Red Cell Distribution Width 19.9 H Sodium Level 132 L White Blood Count 7.0 Test 12/21/16 11:49 Bedside Glucose 126 Medications Medications Current Medications Lorazepam (Ativan) 0.5 mg Q8H PRN PO ANXIETY Last administered on 12/19/16 10: 38; Admin Dose 0.5 MG; Start 11/20/16 at 12:00 Ondansetron HCl (Zofran Inj) 4 mg Q6H PRN IV NAUSEA AND/OR VOMITING Last administered on 11/23/16 05:32; Admin Dose 4 MG; Start 11/20/16 at 12:00 Nitroglycerin (Nitroglycerin (Sl Tab) 0.4 Mg) 1 tab Q5M PRN SL CHEST PAIN; Start 11/20/16 at 12:00 Zolpidem Tartrate (Ambien) 5 mg QHS PRN PO INSOMNIA; Start 11/20/16 at 12:00 Pantoprazole (Protonix Tab) 40 mg DAILY@06 PO Last administered on 12/21/16 05: 08; Admin Dose 40 MG; Start 11/21/16 at 06:00 Miscellaneous Information 1 ea NOTE XX ; Start 11/20/16 at 12:30 Glucose (Glutose) 15 gm Q15M PRN PO DECREASED GLUCOSE; Start 11/20/16 at 12:30 Glucose (Glutose) 22.5 gm Q15M PRN PO DECREASED GLUCOSE; Start 11/20/16 at 12: 30 Dextrose (D50w Syringe) 25 ml Q15M PRN IV DECREASED GLUCOSE; Start 11/20/16 at 12:30 Dextrose (D50w Syringe) 50 ml Q15M PRN IV DECREASED GLUCOSE; Start 11/20/16 at 12:30 Glucagon (Glucagen) 1 mg Q15M PRN IM DECREASED GLUCOSE; Start 11/20/16 at 12:30 Glucose (Glutose) 15 gm Q15M PRN BUCCAL DECREASED GLUCOSE Last administered on 12/12/16 08:29; Admin Dose 15 GM; Start 11/20/16 at 12:30 Levothyroxine Sodium (Synthroid) 125 mcg DAILY@06 PO Last administered on 05:07; Admin Dose 125 MCG; Start 11/22/16 at 06:00 Guaifenesin (Robitussin Liquid Cup) 100 mg Q6H PRN PO COUGH Last administered on 12/16/16 11:44; Admin Dose 100 MG; Start 11/23/16 at 16:30 IV Flush (NS 10 ml) 10 ml PRN PRN IV IV PROTOCOL; Start 11/24/16 at 15:30 Insulin Glargine 15 unit 15 unit HS SC Last administered on 12/17/16 22:37; Admin Dose 15 UNIT; Start 11/26/16 at 21:00 Albumin Human (Albumin Human 25%) 100 ml @ 100 mls/hr ONCE PRN IV after paracentesis; Start 12/02/16 at 02:00 Morphine Sulfate (morphine) 2 mg Q3H PRN IV PAIN LEVEL 7-10 Last administered on 12/21/16 08:59; Admin Dose 2 MG; Start 12/04/16 at 10:00 Acetaminophen (Tylenol Tab) 650 mg Q4H PRN PO PAIN LEVEL 1-3 OR FEVER Last administered on 12/11/16 01:53; Admin Dose 650 MG; Start 12/10/16 at 13:00 Doxycycline Hyclate (Vibramycin) 100 mg BID PO Last administered on 12/21/16 08 :59; Admin Dose 100 MG; Start 12/17/16 at 21:00; Stop 01/19/17 at 22:00 Pyridoxine HCl (Vitamin B6) 50 mg DAILY PO Last administered on 12/21/16 08:59 ; Admin Dose 50 MG; Start 12/17/16 at 16:30 Midodrine (Proamatine) 10 mg TID PRN PO sbp<80; Start 12/19/16 at 22:30 SMITHA HERNANDEZ NP Dec 21, 2016 12:20
--- NOTE | 2016-12-21 13:04 | CONS ---
Date/Time of Note Date/Time of Note DATE: 12/21/16 TIME: 13:02 Assessment/Plan Assessment/Plan Chief Complaint/Hosp Course 66 yo male with ESRD on HD and cirrhosis being treated for sepsis secondary to spontaneous bacterial peritonitis from and infected catheter. Since starting on antibiotics, namely vancomycin, patient's platelets have dramatically dropped in the absence of any obvious bleed. Vancomycin has since been held and pt is being continued on Doxycycline. HIT panel negative. Platelets are improving # Thrombocytopenia - likely secondary to cirrhosis and portal HTN in addition to effects of Vancomycin and underlying sepsis -agree with holding Vancomycin and continuing with Doxycycline as platelet continue to improve -peripheral smear review not consistent with TTP. But will order LDH to complete workup -HIV and Hep panel are negative and therefore not contributing factors to thrombocytopenia -DIC panel ordered. INR at 1.2 which does not support DIC -continue to hold all anticoagulation -transfuse if platelets < 10, < 20 if febrile and < 50 if bleeding Approximately 40 min were spent at patient's bedside and in coordination of his care Problems: Consultation Date/Type/Reason Admit Date/Time Nov 20, 2016 at 09:34 Initial Consult Date 12/18/16 Type of Consultation: Hematology Reason for Consultation thrombocytopenia Referring Provider: DEMETRA BRUNO MD 24 HR Interval Summary Free Text/Dictation patient continues on hemodialysis. continues on antibiotics Exam/Review of Systems Vital Signs Vitals Vital Signs Date Time Temp Pulse Resp B/P Pulse Ox O2 Delivery O2 Flow Rate FiO2 12/21/16 11:49 97.7 66 20 91/50 94 12/18/16 04:40 Room Air Intake and Output 12/20/16 12/20/16 12/21/16 15:00 23:00 07:00 Intake Total 500 ml 900 ml 400 ml Output Total 3500 ml 275 ml Balance -3000 ml 900 ml 125 ml Exam Constitutional: alert, oriented Psych: nl mood/affect, no complaints Head: normocephalic Eyes: nl conjunctiva ENMT: nl external ears & nose Neck: non-tender, supple Respiratory: clear to auscultation, normal air movement Cardiovascular: nl pulses, regular rate and rhythm Gastrointestinal: soft Musculoskeletal: nl extremities to inspection, nl gait and stance Extremities: normal pulses Results Result Diagram: 12/21/16 0604 12/21/16 0604 Results 24 hrs Laboratory Tests Test 12/20/16 16:37 12/20/16 20:48 12/21/16 06:04 12/21/16 07:38 Bedside Glucose 131 120 109 Alpha Fetoprotein 1.73 Anion Gap 14 Basophils # 0.0 Basophils % 0.4 Blood Urea Nitrogen 40 H Calcium Level 7.2 L Carbon Dioxide Level 27 Chloride Level 95 L Creatinine 5.57 H Eosinophils # 0.2 Eosinophils % 3.1 Glucose Level 99 Hematocrit 28.6 L Hemoglobin 9.2 L Lymphocytes # 1.3 Lymphocytes % 18.0 Mean Corpuscular Hemoglobin 29.4 Mean Corpuscular Hemoglobin Concent 32.2 Mean Corpuscular Volume 91.4 Mean Platelet Volume 9.8 Monocytes # 0.6 Monocytes % 8.0 Neutrophils # 4.9 Neutrophils % 69.9 Nucleated Red Blood Cells # 0.0 Nucleated Red Blood Cells % 0.0 Platelet Count 82 #L Potassium Level 4.2 Red Blood Count 3.13 L Red Cell Distribution Width 19.9 H Sodium Level 132 L White Blood Count 7.0 Test 12/21/16 11:49 Bedside Glucose 126 Medications Medications Current Medications Lorazepam (Ativan) 0.5 mg Q8H PRN PO ANXIETY Last administered on 12/19/16 10: 38; Admin Dose 0.5 MG; Start 11/20/16 at 12:00 Ondansetron HCl (Zofran Inj) 4 mg Q6H PRN IV NAUSEA AND/OR VOMITING Last administered on 11/23/16 05:32; Admin Dose 4 MG; Start 11/20/16 at 12:00 Nitroglycerin (Nitroglycerin (Sl Tab) 0.4 Mg) 1 tab Q5M PRN SL CHEST PAIN; Start 11/20/16 at 12:00 Zolpidem Tartrate (Ambien) 5 mg QHS PRN PO INSOMNIA; Start 11/20/16 at 12:00 Pantoprazole (Protonix Tab) 40 mg DAILY@06 PO Last administered on 12/21/16 05: 08; Admin Dose 40 MG; Start 11/21/16 at 06:00 Miscellaneous Information 1 ea NOTE XX ; Start 11/20/16 at 12:30 Glucose (Glutose) 15 gm Q15M PRN PO DECREASED GLUCOSE; Start 11/20/16 at 12:30 Glucose (Glutose) 22.5 gm Q15M PRN PO DECREASED GLUCOSE; Start 11/20/16 at 12: 30 Dextrose (D50w Syringe) 25 ml Q15M PRN IV DECREASED GLUCOSE; Start 11/20/16 at 12:30 Dextrose (D50w Syringe) 50 ml Q15M PRN IV DECREASED GLUCOSE; Start 11/20/16 at 12:30 Glucagon (Glucagen) 1 mg Q15M PRN IM DECREASED GLUCOSE; Start 11/20/16 at 12:30 Glucose (Glutose) 15 gm Q15M PRN BUCCAL DECREASED GLUCOSE Last administered on 12/12/16 08:29; Admin Dose 15 GM; Start 11/20/16 at 12:30 Levothyroxine Sodium (Synthroid) 125 mcg DAILY@06 PO Last administered on 05:07; Admin Dose 125 MCG; Start 11/22/16 at 06:00 Guaifenesin (Robitussin Liquid Cup) 100 mg Q6H PRN PO COUGH Last administered on 12/16/16 11:44; Admin Dose 100 MG; Start 11/23/16 at 16:30 IV Flush (NS 10 ml) 10 ml PRN PRN IV IV PROTOCOL; Start 11/24/16 at 15:30 Insulin Glargine 15 unit 15 unit HS SC Last administered on 12/17/16 22:37; Admin Dose 15 UNIT; Start 11/26/16 at 21:00 Albumin Human (Albumin Human 25%) 100 ml @ 100 mls/hr ONCE PRN IV after paracentesis; Start 12/02/16 at 02:00 Morphine Sulfate (morphine) 2 mg Q3H PRN IV PAIN LEVEL 7-10 Last administered on 12/21/16 12:24; Admin Dose 2 MG; Start 12/04/16 at 10:00 Acetaminophen (Tylenol Tab) 650 mg Q4H PRN PO PAIN LEVEL 1-3 OR FEVER Last administered on 12/11/16 01:53; Admin Dose 650 MG; Start 12/10/16 at 13:00 Doxycycline Hyclate (Vibramycin) 100 mg BID PO Last administered on 12/21/16 08 :59; Admin Dose 100 MG; Start 12/17/16 at 21:00; Stop 01/19/17 at 22:00 Pyridoxine HCl (Vitamin B6) 50 mg DAILY PO Last administered on 12/21/16 08:59 ; Admin Dose 50 MG; Start 12/17/16 at 16:30 Midodrine (Proamatine) 10 mg TID PRN PO sbp<80; Start 12/19/16 at 22:30 OTILIO VELASQUEZ M.D. Dec 21, 2016 13:03
--- NOTE | 2016-12-21 13:13 | CONS ---
Date/Time of Note Date/Time of Note DATE: 12/21/16 TIME: 13:11 Assessment/Plan Assessment/Plan Additional Assessment/Plan Hypotension, intermittent AV fistula stenosis status post venoplasty Acute decompensated systolic and diastolic heart failure Cardiomyopathy, likely ischemic and nonischemic in origin with an ejection fraction less than 20%. (Denied cardiac transplant at [facility]) Biventricular pacemaker and ICD Mitral and tricuspid valve regurgitation. Severe pulmonary hypertension. End-stage renal disease on hemodialysis Ascites status post paracentesis Atrial fibrillation -Blood pressure trend overall stable, fluid management via hemodialysis as per our nephrology colleagues. Anticoagulation on hold secondary to thrombocytopenia. Consultation Date/Type/Reason Admit Date/Time Nov 20, 2016 at 09:34 Initial Consult Date 11/21/16 Type of Consultation: cv Referring Provider: DEMETRA BRUNO MD 24 HR Interval Summary Free Text/Dictation Patient denies shortness of breath, chest pain Exam/Review of Systems Vital Signs Vitals Vital Signs Date Time Temp Pulse Resp B/P Pulse Ox O2 Delivery O2 Flow Rate FiO2 12/21/16 12:00 84 12/21/16 11:49 97.7 20 91/50 94 12/18/16 04:40 Room Air Intake and Output 12/20/16 12/20/16 12/21/16 15:00 23:00 07:00 Intake Total 500 ml 900 ml 400 ml Output Total 3500 ml 275 ml Balance -3000 ml 900 ml 125 ml Exam Sitting up on edge of bed Constitutional: alert, frail, oriented Head: normocephalic Neck: supple Respiratory: other (Coarse breath sounds bilaterally, no wheezing) Cardiovascular: other (S1-S2 heard), regular rate and rhythm Gastrointestinal: ascites, bowel sounds, distended, non-tender, other (No guarding), soft Extremities: edema Results Result Diagram: 12/21/16 0604 12/21/16 0604 Results 24 hrs Laboratory Tests Test 12/20/16 16:37 12/20/16 20:48 12/21/16 06:04 12/21/16 07:38 Bedside Glucose 131 120 109 Alpha Fetoprotein 1.73 Anion Gap 14 Basophils # 0.0 Basophils % 0.4 Blood Urea Nitrogen 40 H Calcium Level 7.2 L Carbon Dioxide Level 27 Chloride Level 95 L Creatinine 5.57 H Eosinophils # 0.2 Eosinophils % 3.1 Glucose Level 99 Hematocrit 28.6 L Hemoglobin 9.2 L Lymphocytes # 1.3 Lymphocytes % 18.0 Mean Corpuscular Hemoglobin 29.4 Mean Corpuscular Hemoglobin Concent 32.2 Mean Corpuscular Volume 91.4 Mean Platelet Volume 9.8 Monocytes # 0.6 Monocytes % 8.0 Neutrophils # 4.9 Neutrophils % 69.9 Nucleated Red Blood Cells # 0.0 Nucleated Red Blood Cells % 0.0 Platelet Count 82 #L Potassium Level 4.2 Red Blood Count 3.13 L Red Cell Distribution Width 19.9 H Sodium Level 132 L White Blood Count 7.0 Test 12/21/16 11:49 Bedside Glucose 126 Medications Medications Current Medications Lorazepam (Ativan) 0.5 mg Q8H PRN PO ANXIETY Last administered on 12/19/16 10: 38; Admin Dose 0.5 MG; Start 11/20/16 at 12:00 Ondansetron HCl (Zofran Inj) 4 mg Q6H PRN IV NAUSEA AND/OR VOMITING Last administered on 11/23/16 05:32; Admin Dose 4 MG; Start 11/20/16 at 12:00 Nitroglycerin (Nitroglycerin (Sl Tab) 0.4 Mg) 1 tab Q5M PRN SL CHEST PAIN; Start 11/20/16 at 12:00 Zolpidem Tartrate (Ambien) 5 mg QHS PRN PO INSOMNIA; Start 11/20/16 at 12:00 Pantoprazole (Protonix Tab) 40 mg DAILY@06 PO Last administered on 12/21/16 05: 08; Admin Dose 40 MG; Start 11/21/16 at 06:00 Miscellaneous Information 1 ea NOTE XX ; Start 11/20/16 at 12:30 Glucose (Glutose) 15 gm Q15M PRN PO DECREASED GLUCOSE; Start 11/20/16 at 12:30 Glucose (Glutose) 22.5 gm Q15M PRN PO DECREASED GLUCOSE; Start 11/20/16 at 12: 30 Dextrose (D50w Syringe) 25 ml Q15M PRN IV DECREASED GLUCOSE; Start 11/20/16 at 12:30 Dextrose (D50w Syringe) 50 ml Q15M PRN IV DECREASED GLUCOSE; Start 11/20/16 at 12:30 Glucagon (Glucagen) 1 mg Q15M PRN IM DECREASED GLUCOSE; Start 11/20/16 at 12:30 Glucose (Glutose) 15 gm Q15M PRN BUCCAL DECREASED GLUCOSE Last administered on 12/12/16 08:29; Admin Dose 15 GM; Start 11/20/16 at 12:30 Levothyroxine Sodium (Synthroid) 125 mcg DAILY@06 PO Last administered on 05:07; Admin Dose 125 MCG; Start 11/22/16 at 06:00 Guaifenesin (Robitussin Liquid Cup) 100 mg Q6H PRN PO COUGH Last administered on 12/16/16 11:44; Admin Dose 100 MG; Start 11/23/16 at 16:30 IV Flush (NS 10 ml) 10 ml PRN PRN IV IV PROTOCOL; Start 11/24/16 at 15:30 Insulin Glargine 15 unit 15 unit HS SC Last administered on 12/17/16 22:37; Admin Dose 15 UNIT; Start 11/26/16 at 21:00 Albumin Human (Albumin Human 25%) 100 ml @ 100 mls/hr ONCE PRN IV after paracentesis; Start 12/02/16 at 02:00 Morphine Sulfate (morphine) 2 mg Q3H PRN IV PAIN LEVEL 7-10 Last administered on 12/21/16 12:24; Admin Dose 2 MG; Start 12/04/16 at 10:00 Acetaminophen (Tylenol Tab) 650 mg Q4H PRN PO PAIN LEVEL 1-3 OR FEVER Last administered on 12/11/16 01:53; Admin Dose 650 MG; Start 12/10/16 at 13:00 Doxycycline Hyclate (Vibramycin) 100 mg BID PO Last administered on 12/21/16 08 :59; Admin Dose 100 MG; Start 12/17/16 at 21:00; Stop 01/19/17 at 22:00 Pyridoxine HCl (Vitamin B6) 50 mg DAILY PO Last administered on 12/21/16 08:59 ; Admin Dose 50 MG; Start 12/17/16 at 16:30 Midodrine (Proamatine) 10 mg TID PRN PO sbp<80; Start 12/19/16 at 22:30 Haprreet Cee DO Dec 21, 2016 13:12
--- NOTE | 2016-12-21 15:38 | PN ---
Date/Time of Note Date/Time of Note DATE: 12/21/16 TIME: 15:37 Assessment/Plan Lines/Catheters IV C[facility]ter Type (from [facility] PICC Line Urinary Cath still in place: No Assessment/Plan Assessment/Plan - Peritonitis, s/p DC peritoneal catheter, continue antibiotics per ID. Dr. Stokes is following an infection disease consultation. - Status post mechanical fall. Brain CT is negative, hip x-ray is negative for fracture. - Severe hypotension requiring pressors, resolved. - Congestive heart failure exacerbation with ejection fraction of 20% per last echo. Continue to remove fluids with hemodialysis. - Ascites, status post paracentesis on11/20, 12/02. S/p tunneled peritoneal drainage catheter placement 12/06. - End-stage renal disease, hemodialysis-dependent. Dr. Maddox is following from nephrology standpoint. Continue patient on hemodialysis. - Coronary artery disease status post coronary artery bypass graft. Continue patient on aspirin and Coreg. Dr. Cee is following from cardiology standpoint. - Hypothyroidism. TSH is 14, Synthroid increased to 125. - Diabetes mellitus type 2. Continue to monitor blood sugar with mild algorithm scale, NovoLog coverage. - Hemodialysis access, status post right AV fistulogram by Dr. Loco, vascular surgery on 11/21. - Liver cirrhosis and portal hypertension. Dr. Kirkpatrick is following in gastroenterology consultation. -Thrombocytopenia. Dr. Tapia is following in hematology consultation. Continue Protonix for peptic ulcer disease prophylaxis. Further recommendations based on clinical course. Plan of care discussed with Dr. Vick. Exam/Review of Systems Vital Signs Vitals Vital Signs Date Time Temp Pulse Resp B/P Pulse Ox O2 Delivery O2 Flow Rate FiO2 12/21/16 15:24 97.7 94 20 95/59 96 12/18/16 04:40 Room Air Intake and Output 12/20/16 12/20/16 12/21/16 15:00 23:00 07:00 Intake Total 500 ml 900 ml 400 ml Output Total 3500 ml 275 ml Balance -3000 ml 900 ml 125 ml Results Result Diagram: 12/21/16 0604 12/21/16 0604 Results 24 hrs Laboratory Tests Test 12/20/16 16:37 12/20/16 20:48 12/21/16 06:04 12/21/16 07:38 Bedside Glucose 131 120 109 Alpha Fetoprotein 1.73 Anion Gap 14 Basophils # 0.0 Basophils % 0.4 Blood Urea Nitrogen 40 H Calcium Level 7.2 L Carbon Dioxide Level 27 Chloride Level 95 L Creatinine 5.57 H Eosinophils # 0.2 Eosinophils % 3.1 Glucose Level 99 Hematocrit 28.6 L Hemoglobin 9.2 L Lymphocytes # 1.3 Lymphocytes % 18.0 Mean Corpuscular Hemoglobin 29.4 Mean Corpuscular Hemoglobin Concent 32.2 Mean Corpuscular Volume 91.4 Mean Platelet Volume 9.8 Monocytes # 0.6 Monocytes % 8.0 Neutrophils # 4.9 Neutrophils % 69.9 Nucleated Red Blood Cells # 0.0 Nucleated Red Blood Cells % 0.0 Platelet Count 82 #L Potassium Level 4.2 Red Blood Count 3.13 L Red Cell Distribution Width 19.9 H Sodium Level 132 L White Blood Count 7.0 Test 12/21/16 11:49 Bedside Glucose 126 Medications Medications Current Medications Lorazepam (Ativan) 0.5 mg Q8H PRN PO ANXIETY Last administered on 12/19/16 10: 38; Admin Dose 0.5 MG; Start 11/20/16 at 12:00 Ondansetron HCl (Zofran Inj) 4 mg Q6H PRN IV NAUSEA AND/OR VOMITING Last administered on 11/23/16 05:32; Admin Dose 4 MG; Start 11/20/16 at 12:00 Nitroglycerin (Nitroglycerin (Sl Tab) 0.4 Mg) 1 tab Q5M PRN SL CHEST PAIN; Start 11/20/16 at 12:00 Zolpidem Tartrate (Ambien) 5 mg QHS PRN PO INSOMNIA; Start 11/20/16 at 12:00 Pantoprazole (Protonix Tab) 40 mg DAILY@06 PO Last administered on 12/21/16 05: 08; Admin Dose 40 MG; Start 11/21/16 at 06:00 Miscellaneous Information 1 ea NOTE XX ; Start 11/20/16 at 12:30 Glucose (Glutose) 15 gm Q15M PRN PO DECREASED GLUCOSE; Start 11/20/16 at 12:30 Glucose (Glutose) 22.5 gm Q15M PRN PO DECREASED GLUCOSE; Start 11/20/16 at 12: 30 Dextrose (D50w Syringe) 25 ml Q15M PRN IV DECREASED GLUCOSE; Start 11/20/16 at 12:30 Dextrose (D50w Syringe) 50 ml Q15M PRN IV DECREASED GLUCOSE; Start 11/20/16 at 12:30 Glucagon (Glucagen) 1 mg Q15M PRN IM DECREASED GLUCOSE; Start 11/20/16 at 12:30 Glucose (Glutose) 15 gm Q15M PRN BUCCAL DECREASED GLUCOSE Last administered on 12/12/16 08:29; Admin Dose 15 GM; Start 11/20/16 at 12:30 Levothyroxine Sodium (Synthroid) 125 mcg DAILY@06 PO Last administered on 05:07; Admin Dose 125 MCG; Start 11/22/16 at 06:00 Guaifenesin (Robitussin Liquid Cup) 100 mg Q6H PRN PO COUGH Last administered on 12/16/16 11:44; Admin Dose 100 MG; Start 11/23/16 at 16:30 IV Flush (NS 10 ml) 10 ml PRN PRN IV IV PROTOCOL; Start 11/24/16 at 15:30 Insulin Glargine 15 unit 15 unit HS SC Last administered on 12/17/16 22:37; Admin Dose 15 UNIT; Start 11/26/16 at 21:00 Albumin Human (Albumin Human 25%) 100 ml @ 100 mls/hr ONCE PRN IV after paracentesis; Start 12/02/16 at 02:00 Morphine Sulfate (morphine) 2 mg Q3H PRN IV PAIN LEVEL 7-10 Last administered on 12/21/16 15:22; Admin Dose 2 MG; Start 12/04/16 at 10:00 Acetaminophen (Tylenol Tab) 650 mg Q4H PRN PO PAIN LEVEL 1-3 OR FEVER Last administered on 12/11/16 01:53; Admin Dose 650 MG; Start 12/10/16 at 13:00 Doxycycline Hyclate (Vibramycin) 100 mg BID PO Last administered on 12/21/16 08 :59; Admin Dose 100 MG; Start 12/17/16 at 21:00; Stop 01/19/17 at 22:00 Pyridoxine HCl (Vitamin B6) 50 mg DAILY PO Last administered on 12/21/16 08:59 ; Admin Dose 50 MG; Start 12/17/16 at 16:30 Midodrine (Proamatine) 10 mg TID PRN PO sbp<80; Start 12/19/16 at 22:30 PEBBLES REYES Dec 21, 2016 15:37
[2016-12-21] MEDS: INSULIN GLARGINE [LANtus] 3 ML PEN SC SCH (21:03)
--- NOTE | 2016-12-21 21:08 | CONS ---
Date/Time of Note Date/Time of Note DATE: 12/21/16 TIME: 21:05 Assessment/Plan Assessment/Plan Chief Complaint/Hosp Course Next HD in AM Problems: Consultation Date/Type/Reason Admit Date/Time Nov 20, 2016 at 09:34 Initial Consult Date 11/21/16 Type of Consultation: renal Referring Provider: DEMETRA BRUNO MD 24 HR Interval Summary Subjective hx not possible: other (Speaks Spanish only) Exam/Review of Systems Vital Signs Vitals Vital Signs Date Time Temp Pulse Resp B/P Pulse Ox O2 Delivery O2 Flow Rate FiO2 12/21/16 20:09 79 12/21/16 19:27 97.7 20 98/51 95 12/18/16 04:40 Room Air Intake and Output 12/20/16 12/20/16 12/21/16 15:00 23:00 07:00 Intake Total 500 ml 900 ml 400 ml Output Total 3500 ml 275 ml Balance -3000 ml 900 ml 125 ml Exam Constitutional: alert, oriented, well developed Psych: nl mood/affect, no complaints Head: atraumatic, normocephalic Eyes: EOMI, PERRL, nl conjunctiva, nl lids, nl sclera ENMT: nl external ears & nose, nl lips & teeth, nl nasal mucosa & septum Neck: non-tender, supple Respiratory: clear to auscultation, normal air movement Cardiovascular: nl pulses, regular rate and rhythm Gastrointestinal: ascites, nl liver, spleen, non-tender, other (Pt has intra- peritoneal catheter in place from which he drains fluid intermittantly), soft Musculoskeletal: nl extremities to inspection, nl gait and stance Extremities: normal pulses, other (AVF bruit lt arm) 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: 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, nl mental status, nl speech, nl strength Skin: nl turgor, No rash or lesions Lymph: nl lymph nodes Results Result Diagram: 12/21/16 0604 12/21/16 0604 Results 24 hrs Laboratory Tests Test 12/21/16 06:04 12/21/16 07:38 12/21/16 11:49 12/21/16 16:29 Alpha Fetoprotein 1.73 Anion Gap 14 Basophils # 0.0 Basophils % 0.4 Blood Urea Nitrogen 40 H Calcium Level 7.2 L Carbon Dioxide Level 27 Chloride Level 95 L Creatinine 5.57 H Eosinophils # 0.2 Eosinophils % 3.1 Glucose Level 99 Hematocrit 28.6 L Hemoglobin 9.2 L Lymphocytes # 1.3 Lymphocytes % 18.0 Mean Corpuscular Hemoglobin 29.4 Mean Corpuscular Hemoglobin Concent 32.2 Mean Corpuscular Volume 91.4 Mean Platelet Volume 9.8 Monocytes # 0.6 Monocytes % 8.0 Neutrophils # 4.9 Neutrophils % 69.9 Nucleated Red Blood Cells # 0.0 Nucleated Red Blood Cells % 0.0 Platelet Count 82 #L Potassium Level 4.2 Red Blood Count 3.13 L Red Cell Distribution Width 19.9 H Sodium Level 132 L White Blood Count 7.0 Bedside Glucose 109 126 122 Medications Medications Current Medications Lorazepam (Ativan) 0.5 mg Q8H PRN PO ANXIETY Last administered on 12/19/16 10: 38; Admin Dose 0.5 MG; Start 11/20/16 at 12:00 Ondansetron HCl (Zofran Inj) 4 mg Q6H PRN IV NAUSEA AND/OR VOMITING Last administered on 11/23/16 05:32; Admin Dose 4 MG; Start 11/20/16 at 12:00 Nitroglycerin (Nitroglycerin (Sl Tab) 0.4 Mg) 1 tab Q5M PRN SL CHEST PAIN; Start 11/20/16 at 12:00 Zolpidem Tartrate (Ambien) 5 mg QHS PRN PO INSOMNIA; Start 11/20/16 at 12:00 Pantoprazole (Protonix Tab) 40 mg DAILY@06 PO Last administered on 12/21/16 05: 08; Admin Dose 40 MG; Start 11/21/16 at 06:00 Miscellaneous Information 1 ea NOTE XX ; Start 11/20/16 at 12:30 Glucose (Glutose) 15 gm Q15M PRN PO DECREASED GLUCOSE; Start 11/20/16 at 12:30 Glucose (Glutose) 22.5 gm Q15M PRN PO DECREASED GLUCOSE; Start 11/20/16 at 12: 30 Dextrose (D50w Syringe) 25 ml Q15M PRN IV DECREASED GLUCOSE; Start 11/20/16 at 12:30 Dextrose (D50w Syringe) 50 ml Q15M PRN IV DECREASED GLUCOSE; Start 11/20/16 at 12:30 Glucagon (Glucagen) 1 mg Q15M PRN IM DECREASED GLUCOSE; Start 11/20/16 at 12:30 Glucose (Glutose) 15 gm Q15M PRN BUCCAL DECREASED GLUCOSE Last administered on 12/12/16 08:29; Admin Dose 15 GM; Start 11/20/16 at 12:30 Levothyroxine Sodium (Synthroid) 125 mcg DAILY@06 PO Last administered on 05:07; Admin Dose 125 MCG; Start 11/22/16 at 06:00 Guaifenesin (Robitussin Liquid Cup) 100 mg Q6H PRN PO COUGH Last administered on 12/16/16 11:44; Admin Dose 100 MG; Start 11/23/16 at 16:30 IV Flush (NS 10 ml) 10 ml PRN PRN IV IV PROTOCOL; Start 11/24/16 at 15:30 Insulin Glargine 15 unit 15 unit HS SC Last administered on 12/21/16 21:03; Admin Dose 15 UNIT; Start 11/26/16 at 21:00 Albumin Human (Albumin Human 25%) 100 ml @ 100 mls/hr ONCE PRN IV after paracentesis; Start 12/02/16 at 02:00 Morphine Sulfate (morphine) 2 mg Q3H PRN IV PAIN LEVEL 7-10 Last administered on 12/21/16 18:49; Admin Dose 2 MG; Start 12/04/16 at 10:00 Acetaminophen (Tylenol Tab) 650 mg Q4H PRN PO PAIN LEVEL 1-3 OR FEVER Last administered on 12/11/16 01:53; Admin Dose 650 MG; Start 12/10/16 at 13:00 Doxycycline Hyclate (Vibramycin) 100 mg BID PO Last administered on 12/21/16 20 :59; Admin Dose 100 MG; Start 12/17/16 at 21:00; Stop 01/19/17 at 22:00 Pyridoxine HCl (Vitamin B6) 50 mg DAILY PO Last administered on 12/21/16 08:59 ; Admin Dose 50 MG; Start 12/17/16 at 16:30 Midodrine (Proamatine) 10 mg TID PRN PO sbp<80; Start 12/19/16 at 22:30 MILADY ANDERSON MD Dec 21, 2016 21:08
[2016-12-22] VITALS (19 sets, daily range): BP systolic 80–106; BP diastolic 47–63; PULSE 75–89; RESP 16–18
[2016-12-22] MEDS: LEVOTHYROXINE 125 MCG TAB PO SCH (05:27)
[2016-12-22] MEDS: PANTOPRAZOLE (EC) 40 MG TAB PO SCH (05:27)
[2016-12-22 06:55] LABS: ADD SCAN DIFF NO
[2016-12-22 06:59] LABS: ABNORMAL IP MESSAGE 1; BASOPHILS % 0.6 % (0.0-2.0); EOSINOPHILS # 0.3 10^3/ul (0.0-0.5); EOSINOPHILS % 3.8 % (0.0-7.0); HEMATOCRIT 28.4 % (42.0-52.0); HEMOGLOBIN 8.9 g/dl (14.0-18.0); LYMPHOCYTES # 1.1 10^3/ul (0.8-2.9); LYMPHOCYTES % 15.9 % (15.0-51.0); MEAN CORPUSCULAR HGB CONC 31.3 g/dl (32.0-37.0); MEAN CORPUSCULAR VOLUME 92.5 fl (82.0-101.0); MEAN PLATELET VOLUME 9.5 fl (7.4-10.4); MONOCYTE # 0.7 10^3/ul (0.3-0.9); MONOCYTES % 9.3 % (0.0-11.0); NEUTROPHILS % 69.8 % (39.0-77.0); PLATELET COUNT 98 10^3/UL (140-415); RED BLOOD COUNT 3.07 10^6/ul (4.70-6.10); WHITE BLOOD COUNT 7.2 10^3/ul (4.8-10.8)
[2016-12-22 07:18] LABS: POTASSIUM 4.3 mmol/L (3.5-5.1)
[2016-12-22 07:20] LABS: CREATININE 7.23 mg/dl (0.61-1.24)
[2016-12-22 07:21] LABS: CALCIUM 7.2 mg/dl (8.4-10.2)
[2016-12-22] MEDS: INSULIN ASPART [NOVOLOG] 3 ML PEN SC SCH ×3 (07:55→17:10)
[2016-12-22] MEDS: DOXYCYCLINE 100 MG TAB PO SCH (09:10)
[2016-12-22] MEDS: PYRIDOXINE 50 MG TAB PO SCH (09:10)
--- NOTE | 2016-12-22 09:54 | CONS ---
Date/Time of Note Date/Time of Note DATE: 12/22/16 TIME: 09:52 Assessment/Plan Assessment/Plan Additional Assessment/Plan Hypotension, intermittent AV fistula stenosis status post venoplasty Acute decompensated systolic and diastolic heart failure Cardiomyopathy, likely ischemic and nonischemic in origin with an ejection fraction less than 20%. (Denied cardiac transplant at [facility]) Biventricular pacemaker and ICD Mitral and tricuspid valve regurgitation. Severe pulmonary hypertension. End-stage renal disease on hemodialysis Ascites status post paracentesis Atrial fibrillation -Blood pressure trend overall stable, fluid management via hemodialysis as per our nephrology colleagues. Anticoagulation on hold secondary to thrombocytopenia. Consultation Date/Type/Reason Admit Date/Time Nov 20, 2016 at 09:34 Initial Consult Date 11/21/16 Type of Consultation: cv Referring Provider: DEMETRA BRUNO MD 24 HR Interval Summary Free Text/Dictation Denies shortness of breath, chest pain, dizziness Exam/Review of Systems Vital Signs Vitals Vital Signs Date Time Temp Pulse Resp B/P Pulse Ox O2 Delivery O2 Flow Rate FiO2 12/22/16 08:20 77 12/22/16 07:16 97.9 17 85/50 99 Intake and Output 12/21/16 12/21/16 12/22/16 15:00 23:00 07:00 Intake Total 550 ml 500 ml Balance 550 ml 500 ml Exam No apparent distress Constitutional: alert, frail, oriented Head: normocephalic Neck: supple Respiratory: other (Coarse breath sounds bilaterally, no wheezing) Cardiovascular: other (S1-S2 heard), regular rate and rhythm Gastrointestinal: ascites, bowel sounds, distended, non-tender, other (No guarding), soft Extremities: edema Results Result Diagram: 12/22/16 0558 12/22/16 0550 Results 24 hrs Laboratory Tests Test 12/21/16 11:49 12/21/16 16:29 12/21/16 20:58 12/22/16 05:50 Bedside Glucose 126 122 122 Anion Gap 16 Blood Urea Nitrogen 56 H Calcium Level 7.2 L Carbon Dioxide Level 21 Chloride Level 97 Creatinine 7.23 H Glucose Level 64 #L Potassium Level 4.3 Sodium Level 130 L Test 12/22/16 05:58 12/22/16 08:17 Basophils # 0.0 Basophils % 0.6 Eosinophils # 0.3 Eosinophils % 3.8 Hematocrit 28.4 L Hemoglobin 8.9 L Lymphocytes # 1.1 Lymphocytes % 15.9 Mean Corpuscular Hemoglobin 29.0 Mean Corpuscular Hemoglobin Concent 31.3 L Mean Corpuscular Volume 92.5 Mean Platelet Volume 9.5 Monocytes # 0.7 Monocytes % 9.3 Neutrophils # 5.0 Neutrophils % 69.8 Nucleated Red Blood Cells # 0.0 Nucleated Red Blood Cells % 0.0 Platelet Count 98 L Red Blood Count 3.07 L Red Cell Distribution Width 20.0 H White Blood Count 7.2 Bedside Glucose 74 Medications Medications Current Medications Lorazepam (Ativan) 0.5 mg Q8H PRN PO ANXIETY Last administered on 12/19/16 10: 38; Admin Dose 0.5 MG; Start 11/20/16 at 12:00 Ondansetron HCl (Zofran Inj) 4 mg Q6H PRN IV NAUSEA AND/OR VOMITING Last administered on 11/23/16 05:32; Admin Dose 4 MG; Start 11/20/16 at 12:00 Nitroglycerin (Nitroglycerin (Sl Tab) 0.4 Mg) 1 tab Q5M PRN SL CHEST PAIN; Start 11/20/16 at 12:00 Zolpidem Tartrate (Ambien) 5 mg QHS PRN PO INSOMNIA; Start 11/20/16 at 12:00 Pantoprazole (Protonix Tab) 40 mg DAILY@06 PO Last administered on 12/22/16 05: 27; Admin Dose 40 MG; Start 11/21/16 at 06:00 Miscellaneous Information 1 ea NOTE XX ; Start 11/20/16 at 12:30 Glucose (Glutose) 15 gm Q15M PRN PO DECREASED GLUCOSE; Start 11/20/16 at 12:30 Glucose (Glutose) 22.5 gm Q15M PRN PO DECREASED GLUCOSE; Start 11/20/16 at 12: 30 Dextrose (D50w Syringe) 25 ml Q15M PRN IV DECREASED GLUCOSE; Start 11/20/16 at 12:30 Dextrose (D50w Syringe) 50 ml Q15M PRN IV DECREASED GLUCOSE; Start 11/20/16 at 12:30 Glucagon (Glucagen) 1 mg Q15M PRN IM DECREASED GLUCOSE; Start 11/20/16 at 12:30 Glucose (Glutose) 15 gm Q15M PRN BUCCAL DECREASED GLUCOSE Last administered on 12/12/16 08:29; Admin Dose 15 GM; Start 11/20/16 at 12:30 Levothyroxine Sodium (Synthroid) 125 mcg DAILY@06 PO Last administered on 05:27; Admin Dose 125 MCG; Start 11/22/16 at 06:00 Guaifenesin (Robitussin Liquid Cup) 100 mg Q6H PRN PO COUGH Last administered on 12/16/16 11:44; Admin Dose 100 MG; Start 11/23/16 at 16:30 IV Flush (NS 10 ml) 10 ml PRN PRN IV IV PROTOCOL; Start 11/24/16 at 15:30 Insulin Glargine 15 unit 15 unit HS SC Last administered on 12/21/16 21:03; Admin Dose 15 UNIT; Start 11/26/16 at 21:00 Albumin Human (Albumin Human 25%) 100 ml @ 100 mls/hr ONCE PRN IV after paracentesis; Start 12/02/16 at 02:00 Morphine Sulfate (morphine) 2 mg Q3H PRN IV PAIN LEVEL 7-10 Last administered on 12/21/16 23:24; Admin Dose 2 MG; Start 12/04/16 at 10:00 Acetaminophen (Tylenol Tab) 650 mg Q4H PRN PO PAIN LEVEL 1-3 OR FEVER Last administered on 12/11/16 01:53; Admin Dose 650 MG; Start 12/10/16 at 13:00 Doxycycline Hyclate (Vibramycin) 100 mg BID PO Last administered on 12/22/16 09 :10; Admin Dose 100 MG; Start 12/17/16 at 21:00; Stop 01/19/17 at 22:00 Pyridoxine HCl (Vitamin B6) 50 mg DAILY PO Last administered on 12/22/16 09:10 ; Admin Dose 50 MG; Start 12/17/16 at 16:30 Midodrine (Proamatine) 10 mg TID PRN PO sbp<80; Start 12/19/16 at 22:30 Harpreet Cee DO Dec 22, 2016 09:54
[2016-12-22] MEDS ORDERED: ALBUMIN HUMAN 25% 100 ML IV PRN (10:00)
--- NOTE | 2016-12-22 11:23 | CONS ---
Date/Time of Note Date/Time of Note DATE: 12/22/16 TIME: 11:22 Assessment/Plan Assessment/Plan Chief Complaint/Hosp Course SUBJECTIVE: No acute changes. Patient is alert, feels good, no fevers, nad. MICROBIOLOGY: Peritoneal fluid culture on admission grew coagulase-negative staph species. ANTIMICROBIALS: Doxycycline, status post vancomycin. INDWELLINGS: Right upper extremity AV fistula, left upper extremity PICC line. PHYSICAL EXAMINATION: GENERAL: This is a fragile, chronically ill-appearing, elderly man who is awake , in no distress. HEENT: Head atraumatic, normocephalic. Sclerae anicteric. Buccal mucosa dry. NECK: Supple, trachea midline. CHEST: Rise symmetrical. Breath sounds diminished. HEART: S1, S2. ABDOMEN: Obese, soft. EXTREMITIES: Without cyanosis. ASSESSMENT: 1. Peritonitis secondary to infected Pleurx catheter that was discontinued. 2. End-stage renal disease, hemodialysis dependent. 3. End-stage liver disease with recurrent ascites, status post Pleurx catheter placement and discontinuation. 4. Ischemic cardiomyopathy. 5. Coronary artery disease, history of coronary artery bypass graft. 6. Anemia with thrombocytopenia. PLAN: Patient remains stable. Continue on current antimicrobials for 5 more days. Hemodialysis per renal. GI rec-s DW pt Problems: Consultation Date/Type/Reason Admit Date/Time Nov 20, 2016 at 09:34 Initial Consult Date 12/18/16 Type of Consultation: id Referring Provider: DEMETRA BRUNO MD Exam/Review of Systems Vital Signs Vitals Vital Signs Date Time Temp Pulse Resp B/P Pulse Ox O2 Delivery O2 Flow Rate FiO2 12/22/16 11:15 98.0 84 18 91/62 100 Intake and Output 12/21/16 12/21/16 12/22/16 15:00 23:00 07:00 Intake Total 550 ml 500 ml Balance 550 ml 500 ml Results Result Diagram: 12/22/16 0558 12/22/16 0550 Results 24 hrs Laboratory Tests Test 12/21/16 11:49 12/21/16 16:29 12/21/16 20:58 12/22/16 05:50 Bedside Glucose 126 122 122 Anion Gap 16 Blood Urea Nitrogen 56 H Calcium Level 7.2 L Carbon Dioxide Level 21 Chloride Level 97 Creatinine 7.23 H Glucose Level 64 #L Potassium Level 4.3 Sodium Level 130 L Test 12/22/16 05:58 12/22/16 08:17 Basophils # 0.0 Basophils % 0.6 Eosinophils # 0.3 Eosinophils % 3.8 Hematocrit 28.4 L Hemoglobin 8.9 L Lymphocytes # 1.1 Lymphocytes % 15.9 Mean Corpuscular Hemoglobin 29.0 Mean Corpuscular Hemoglobin Concent 31.3 L Mean Corpuscular Volume 92.5 Mean Platelet Volume 9.5 Monocytes # 0.7 Monocytes % 9.3 Neutrophils # 5.0 Neutrophils % 69.8 Nucleated Red Blood Cells # 0.0 Nucleated Red Blood Cells % 0.0 Platelet Count 98 L Red Blood Count 3.07 L Red Cell Distribution Width 20.0 H White Blood Count 7.2 Bedside Glucose 74 Medications Medications Current Medications Lorazepam (Ativan) 0.5 mg Q8H PRN PO ANXIETY Last administered on 12/19/16 10: 38; Admin Dose 0.5 MG; Start 11/20/16 at 12:00 Ondansetron HCl (Zofran Inj) 4 mg Q6H PRN IV NAUSEA AND/OR VOMITING Last administered on 11/23/16 05:32; Admin Dose 4 MG; Start 11/20/16 at 12:00 Nitroglycerin (Nitroglycerin (Sl Tab) 0.4 Mg) 1 tab Q5M PRN SL CHEST PAIN; Start 11/20/16 at 12:00 Zolpidem Tartrate (Ambien) 5 mg QHS PRN PO INSOMNIA; Start 11/20/16 at 12:00 Pantoprazole (Protonix Tab) 40 mg DAILY@06 PO Last administered on 12/22/16 05: 27; Admin Dose 40 MG; Start 11/21/16 at 06:00 Miscellaneous Information 1 ea NOTE XX ; Start 11/20/16 at 12:30 Glucose (Glutose) 15 gm Q15M PRN PO DECREASED GLUCOSE; Start 11/20/16 at 12:30 Glucose (Glutose) 22.5 gm Q15M PRN PO DECREASED GLUCOSE; Start 11/20/16 at 12: 30 Dextrose (D50w Syringe) 25 ml Q15M PRN IV DECREASED GLUCOSE; Start 11/20/16 at 12:30 Dextrose (D50w Syringe) 50 ml Q15M PRN IV DECREASED GLUCOSE; Start 11/20/16 at 12:30 Glucagon (Glucagen) 1 mg Q15M PRN IM DECREASED GLUCOSE; Start 11/20/16 at 12:30 Glucose (Glutose) 15 gm Q15M PRN BUCCAL DECREASED GLUCOSE Last administered on 12/12/16 08:29; Admin Dose 15 GM; Start 11/20/16 at 12:30 Levothyroxine Sodium (Synthroid) 125 mcg DAILY@06 PO Last administered on 05:27; Admin Dose 125 MCG; Start 11/22/16 at 06:00 Guaifenesin (Robitussin Liquid Cup) 100 mg Q6H PRN PO COUGH Last administered on 12/16/16 11:44; Admin Dose 100 MG; Start 11/23/16 at 16:30 IV Flush (NS 10 ml) 10 ml PRN PRN IV IV PROTOCOL; Start 11/24/16 at 15:30 Insulin Glargine 15 unit 15 unit HS SC Last administered on 12/21/16 21:03; Admin Dose 15 UNIT; Start 11/26/16 at 21:00 Albumin Human (Albumin Human 25%) 100 ml @ 100 mls/hr ONCE PRN IV after paracentesis; Start 12/02/16 at 02:00 Morphine Sulfate (morphine) 2 mg Q3H PRN IV PAIN LEVEL 7-10 Last administered on 12/21/16 23:24; Admin Dose 2 MG; Start 12/04/16 at 10:00 Acetaminophen (Tylenol Tab) 650 mg Q4H PRN PO PAIN LEVEL 1-3 OR FEVER Last administered on 12/11/16 01:53; Admin Dose 650 MG; Start 12/10/16 at 13:00 Doxycycline Hyclate (Vibramycin) 100 mg BID PO Last administered on 12/22/16 09 :10; Admin Dose 100 MG; Start 12/17/16 at 21:00; Stop 01/19/17 at 22:00 Pyridoxine HCl (Vitamin B6) 50 mg DAILY PO Last administered on 12/22/16 09:10 ; Admin Dose 50 MG; Start 12/17/16 at 16:30 Midodrine (Proamatine) 10 mg TID PRN PO sbp<80; Start 12/19/16 at 22:30 SMITHA HERNANDEZ NP Dec 22, 2016 11:23
[2016-12-22] MEDS: morphine 2 MG INJ IV PRN (11:37)
--- NOTE | 2016-12-22 11:38 | CONS ---
Date/Time of Note Date/Time of Note DATE: 12/22/16 TIME: 11:38 Assessment/Plan Assessment/Plan Additional Assessment/Plan ASSESSMENT: 1. Refractory ascites. 2. Ischemic cardiomyopathy. 3. End-stage renal disease. 4. Cirrhosis of liver. 5.s/p pleurex drain for ascites,3 liters removed today 6.leaking around Pleurex 7. left hip pain 8. SBP,wbc 3600 9.hypotension 10 thrombocytopenia,better Plan drain ascitic fluid PRN PT antibiotic as per ID d/c drainage catheter,done continue antibiotic fluid for cytology ,not done juan c fetoprotein WNL Consultation Date/Type/Reason Admit Date/Time Nov 20, 2016 at 09:34 Initial Consult Date 11/21/16 Type of Consultation: id Referring Provider: DEMETRA BRUNO MD 24 HR Interval Summary Constitutional: improved, no complaints Exam/Review of Systems Vital Signs Vitals Vital Signs Date Time Temp Pulse Resp B/P Pulse Ox O2 Delivery O2 Flow Rate FiO2 12/22/16 11:15 98.0 84 18 91/62 100 Intake and Output 12/21/16 12/21/16 12/22/16 15:00 23:00 07:00 Intake Total 550 ml 500 ml Balance 550 ml 500 ml Exam Constitutional: alert, oriented, well developed Psych: nl mood/affect, no complaints Head: atraumatic, normocephalic Eyes: EOMI, PERRL, nl conjunctiva, nl lids, nl sclera ENMT: nl external ears & nose, nl lips & teeth, nl nasal mucosa & septum Neck: non-tender, supple Respiratory: clear to auscultation, normal air movement Cardiovascular: nl pulses, regular rate and rhythm Gastrointestinal: nl liver, spleen, non-tender, soft Musculoskeletal: nl extremities to inspection, nl gait and stance Extremities: normal pulses 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: 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, nl mental status, nl speech, nl strength Skin: nl turgor, No rash or lesions Lymph: nl lymph nodes Results Result Diagram: 12/22/16 0558 12/22/16 0550 Results 24 hrs Laboratory Tests Test 12/21/16 11:49 12/21/16 16:29 12/21/16 20:58 12/22/16 05:50 Bedside Glucose 126 122 122 Anion Gap 16 Blood Urea Nitrogen 56 H Calcium Level 7.2 L Carbon Dioxide Level 21 Chloride Level 97 Creatinine 7.23 H Glucose Level 64 #L Potassium Level 4.3 Sodium Level 130 L Test 12/22/16 05:58 12/22/16 08:17 Basophils # 0.0 Basophils % 0.6 Eosinophils # 0.3 Eosinophils % 3.8 Hematocrit 28.4 L Hemoglobin 8.9 L Lymphocytes # 1.1 Lymphocytes % 15.9 Mean Corpuscular Hemoglobin 29.0 Mean Corpuscular Hemoglobin Concent 31.3 L Mean Corpuscular Volume 92.5 Mean Platelet Volume 9.5 Monocytes # 0.7 Monocytes % 9.3 Neutrophils # 5.0 Neutrophils % 69.8 Nucleated Red Blood Cells # 0.0 Nucleated Red Blood Cells % 0.0 Platelet Count 98 L Red Blood Count 3.07 L Red Cell Distribution Width 20.0 H White Blood Count 7.2 Bedside Glucose 74 Medications Medications Current Medications Lorazepam (Ativan) 0.5 mg Q8H PRN PO ANXIETY Last administered on 12/19/16 10: 38; Admin Dose 0.5 MG; Start 11/20/16 at 12:00 Ondansetron HCl (Zofran Inj) 4 mg Q6H PRN IV NAUSEA AND/OR VOMITING Last administered on 11/23/16 05:32; Admin Dose 4 MG; Start 11/20/16 at 12:00 Nitroglycerin (Nitroglycerin (Sl Tab) 0.4 Mg) 1 tab Q5M PRN SL CHEST PAIN; Start 11/20/16 at 12:00 Zolpidem Tartrate (Ambien) 5 mg QHS PRN PO INSOMNIA; Start 11/20/16 at 12:00 Pantoprazole (Protonix Tab) 40 mg DAILY@06 PO Last administered on 12/22/16 05: 27; Admin Dose 40 MG; Start 11/21/16 at 06:00 Miscellaneous Information 1 ea NOTE XX ; Start 11/20/16 at 12:30 Glucose (Glutose) 15 gm Q15M PRN PO DECREASED GLUCOSE; Start 11/20/16 at 12:30 Glucose (Glutose) 22.5 gm Q15M PRN PO DECREASED GLUCOSE; Start 11/20/16 at 12: 30 Dextrose (D50w Syringe) 25 ml Q15M PRN IV DECREASED GLUCOSE; Start 11/20/16 at 12:30 Dextrose (D50w Syringe) 50 ml Q15M PRN IV DECREASED GLUCOSE; Start 11/20/16 at 12:30 Glucagon (Glucagen) 1 mg Q15M PRN IM DECREASED GLUCOSE; Start 11/20/16 at 12:30 Glucose (Glutose) 15 gm Q15M PRN BUCCAL DECREASED GLUCOSE Last administered on 12/12/16 08:29; Admin Dose 15 GM; Start 11/20/16 at 12:30 Levothyroxine Sodium (Synthroid) 125 mcg DAILY@06 PO Last administered on 05:27; Admin Dose 125 MCG; Start 11/22/16 at 06:00 Guaifenesin (Robitussin Liquid Cup) 100 mg Q6H PRN PO COUGH Last administered on 12/16/16 11:44; Admin Dose 100 MG; Start 11/23/16 at 16:30 IV Flush (NS 10 ml) 10 ml PRN PRN IV IV PROTOCOL; Start 11/24/16 at 15:30 Insulin Glargine 15 unit 15 unit HS SC Last administered on 12/21/16 21:03; Admin Dose 15 UNIT; Start 11/26/16 at 21:00 Albumin Human (Albumin Human 25%) 100 ml @ 100 mls/hr ONCE PRN IV after paracentesis; Start 12/02/16 at 02:00 Morphine Sulfate (morphine) 2 mg Q3H PRN IV PAIN LEVEL 7-10 Last administered on 12/22/16 11:37; Admin Dose 2 MG; Start 12/04/16 at 10:00 Acetaminophen (Tylenol Tab) 650 mg Q4H PRN PO PAIN LEVEL 1-3 OR FEVER Last administered on 12/11/16 01:53; Admin Dose 650 MG; Start 12/10/16 at 13:00 Doxycycline Hyclate (Vibramycin) 100 mg BID PO Last administered on 12/22/16 09 :10; Admin Dose 100 MG; Start 12/17/16 at 21:00; Stop 01/19/17 at 22:00 Pyridoxine HCl (Vitamin B6) 50 mg DAILY PO Last administered on 12/22/16 09:10 ; Admin Dose 50 MG; Start 12/17/16 at 16:30 Midodrine (Proamatine) 10 mg TID PRN PO sbp<80; Start 12/19/16 at 22:30 LOR MASON MD Dec 22, 2016 11:38
--- NOTE | 2016-12-22 12:16 | CONS ---
Date/Time of Note Date/Time of Note DATE: 12/22/16 TIME: 12:15 Assessment/Plan Assessment/Plan Chief Complaint/Hosp Course 66 yo male with ESRD on HD and cirrhosis being treated for sepsis secondary to spontaneous bacterial peritonitis from and infected catheter. Since starting on antibiotics, namely vancomycin, patient's platelets have dramatically dropped in the absence of any obvious bleed. Vancomycin has since been held and pt is being continued on Doxycycline. HIT panel negative. Platelets continue to improve # Thrombocytopenia - likely secondary to cirrhosis and portal HTN in addition to effects of Vancomycin and underlying sepsis -agree with holding Vancomycin and continuing with Doxycycline as platelet continue to improve -peripheral smear review not consistent with TTP. But will order LDH to complete workup -HIV and Hep panel are negative and therefore not contributing factors to thrombocytopenia -DIC panel ordered. INR at 1.2 which does not support DIC -anticoagulation can be given now that platelets are consistently > 50 -transfuse if platelets < 10, < 20 if febrile and < 50 if bleeding Approximately 40 min were spent at patient's bedside and in coordination of his care Problems: Consultation Date/Type/Reason Admit Date/Time Nov 20, 2016 at 09:34 Initial Consult Date 12/18/16 Type of Consultation: Hematology Reason for Consultation thrombocytopenia Referring Provider: DEMETRA BRUNO MD 24 HR Interval Summary Free Text/Dictation no acute overnight events. pt continues on HD Exam/Review of Systems Vital Signs Vitals Vital Signs Date Time Temp Pulse Resp B/P Pulse Ox O2 Delivery O2 Flow Rate FiO2 12/22/16 12:03 82 12/22/16 11:15 98.0 18 91/62 100 Intake and Output 12/21/16 12/21/16 12/22/16 15:00 23:00 07:00 Intake Total 550 ml 500 ml Balance 550 ml 500 ml Exam Constitutional: alert, oriented Psych: no complaints Head: normocephalic Eyes: nl conjunctiva ENMT: nl external ears & nose Neck: non-tender, supple Respiratory: clear to auscultation, normal air movement Cardiovascular: regular rate and rhythm Gastrointestinal: soft Musculoskeletal: nl extremities to inspection, nl gait and stance Extremities: normal pulses Results Result Diagram: 12/22/16 0558 12/22/16 0550 Results 24 hrs Laboratory Tests Test 12/21/16 16:29 12/21/16 20:58 12/22/16 05:50 12/22/16 05:58 Bedside Glucose 122 122 Anion Gap 16 Blood Urea Nitrogen 56 H Calcium Level 7.2 L Carbon Dioxide Level 21 Chloride Level 97 Creatinine 7.23 H Glucose Level 64 #L Potassium Level 4.3 Sodium Level 130 L Basophils # 0.0 Basophils % 0.6 Eosinophils # 0.3 Eosinophils % 3.8 Hematocrit 28.4 L Hemoglobin 8.9 L Lymphocytes # 1.1 Lymphocytes % 15.9 Mean Corpuscular Hemoglobin 29.0 Mean Corpuscular Hemoglobin Concent 31.3 L Mean Corpuscular Volume 92.5 Mean Platelet Volume 9.5 Monocytes # 0.7 Monocytes % 9.3 Neutrophils # 5.0 Neutrophils % 69.8 Nucleated Red Blood Cells # 0.0 Nucleated Red Blood Cells % 0.0 Platelet Count 98 L Red Blood Count 3.07 L Red Cell Distribution Width 20.0 H White Blood Count 7.2 Test 12/22/16 08:17 Bedside Glucose 74 Medications Medications Current Medications Lorazepam (Ativan) 0.5 mg Q8H PRN PO ANXIETY Last administered on 12/19/16 10: 38; Admin Dose 0.5 MG; Start 11/20/16 at 12:00 Ondansetron HCl (Zofran Inj) 4 mg Q6H PRN IV NAUSEA AND/OR VOMITING Last administered on 11/23/16 05:32; Admin Dose 4 MG; Start 11/20/16 at 12:00 Nitroglycerin (Nitroglycerin (Sl Tab) 0.4 Mg) 1 tab Q5M PRN SL CHEST PAIN; Start 11/20/16 at 12:00 Zolpidem Tartrate (Ambien) 5 mg QHS PRN PO INSOMNIA; Start 11/20/16 at 12:00 Pantoprazole (Protonix Tab) 40 mg DAILY@06 PO Last administered on 12/22/16 05: 27; Admin Dose 40 MG; Start 11/21/16 at 06:00 Miscellaneous Information 1 ea NOTE XX ; Start 11/20/16 at 12:30 Glucose (Glutose) 15 gm Q15M PRN PO DECREASED GLUCOSE; Start 11/20/16 at 12:30 Glucose (Glutose) 22.5 gm Q15M PRN PO DECREASED GLUCOSE; Start 11/20/16 at 12: 30 Dextrose (D50w Syringe) 25 ml Q15M PRN IV DECREASED GLUCOSE; Start 11/20/16 at 12:30 Dextrose (D50w Syringe) 50 ml Q15M PRN IV DECREASED GLUCOSE; Start 11/20/16 at 12:30 Glucagon (Glucagen) 1 mg Q15M PRN IM DECREASED GLUCOSE; Start 11/20/16 at 12:30 Glucose (Glutose) 15 gm Q15M PRN BUCCAL DECREASED GLUCOSE Last administered on 12/12/16 08:29; Admin Dose 15 GM; Start 11/20/16 at 12:30 Levothyroxine Sodium (Synthroid) 125 mcg DAILY@06 PO Last administered on 05:27; Admin Dose 125 MCG; Start 11/22/16 at 06:00 Guaifenesin (Robitussin Liquid Cup) 100 mg Q6H PRN PO COUGH Last administered on 12/16/16 11:44; Admin Dose 100 MG; Start 11/23/16 at 16:30 IV Flush (NS 10 ml) 10 ml PRN PRN IV IV PROTOCOL; Start 11/24/16 at 15:30 Insulin Glargine 15 unit 15 unit HS SC Last administered on 12/21/16 21:03; Admin Dose 15 UNIT; Start 11/26/16 at 21:00 Albumin Human (Albumin Human 25%) 100 ml @ 100 mls/hr ONCE PRN IV after paracentesis; Start 12/02/16 at 02:00 Morphine Sulfate (morphine) 2 mg Q3H PRN IV PAIN LEVEL 7-10 Last administered on 12/22/16 11:37; Admin Dose 2 MG; Start 12/04/16 at 10:00 Acetaminophen (Tylenol Tab) 650 mg Q4H PRN PO PAIN LEVEL 1-3 OR FEVER Last administered on 12/11/16 01:53; Admin Dose 650 MG; Start 12/10/16 at 13:00 Doxycycline Hyclate (Vibramycin) 100 mg BID PO Last administered on 12/22/16 09 :10; Admin Dose 100 MG; Start 12/17/16 at 21:00; Stop 01/19/17 at 22:00 Pyridoxine HCl (Vitamin B6) 50 mg DAILY PO Last administered on 12/22/16 09:10 ; Admin Dose 50 MG; Start 12/17/16 at 16:30 Midodrine (Proamatine) 10 mg TID PRN PO sbp<80; Start 12/19/16 at 22:30 OTILIO VELASQUEZ M.D. Dec 22, 2016 12:16
[2016-12-22] MEDS ORDERED: LANT3I SC (14:41)
[2016-12-22] MEDS ORDERED: MIDO5TAB19 PO (14:41)
[2016-12-22] MEDS ORDERED: HYDR-906 PO (14:41)
[2016-12-22] MEDS ORDERED: DOXY100T2 PO (14:41)
[2016-12-22] MEDS ORDERED: LEVO125T PO (14:41)
--- NOTE | 2016-12-22 20:18 | CONS ---
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 Consultation Date/Type/Reason Admit Date/Time Nov 20, 2016 at 09:34 Initial Consult Date 11/21/16 Type of Consultation: Renal Referring Provider: DEMETRA BRUNO MD 24 HR Interval Summary Free Text/Dictation Pt is more comfortable Exam/Review of Systems Vital Signs Vitals Vital Signs Date Time Temp Pulse Resp B/P Pulse Ox O2 Delivery O2 Flow Rate FiO2 12/22/16 16:06 87 12/22/16 15:47 98.3 18 97/63 96 Intake and Output 12/21/16 12/21/16 12/22/16 15:00 23:00 07:00 Intake Total 550 ml 500 ml Balance 550 ml 500 ml Exam Constitutional: alert, oriented, well developed Psych: nl mood/affect, no complaints Head: atraumatic, normocephalic Eyes: EOMI, PERRL, nl conjunctiva, nl lids, nl sclera ENMT: nl external ears & nose, nl lips & teeth, nl nasal mucosa & septum Neck: non-tender, supple Respiratory: clear to auscultation, normal air movement Cardiovascular: edema, nl pulses, regular rate and rhythm Gastrointestinal: ascites, nl liver, spleen, non-tender, other (Intraabbd cath port lt flank noted), soft Musculoskeletal: nl extremities to inspection, nl gait and stance Extremities: normal pulses, other (Lt arm avf bruit present) 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: QUALITY CONTROL MANAGER 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, nl mental status, nl speech, nl strength Skin: nl turgor, other (pale), No rash or lesions Lymph: nl lymph nodes Results Result Diagram: 12/22/16 0558 12/22/16 0550 Results 24 hrs Laboratory Tests Test 12/21/16 20:58 12/22/16 05:50 12/22/16 05:58 12/22/16 08:17 Bedside Glucose 122 74 Anion Gap 16 Blood Urea Nitrogen 56 H Calcium Level 7.2 L Carbon Dioxide Level 21 Chloride Level 97 Creatinine 7.23 H Glucose Level 64 #L Potassium Level 4.3 Sodium Level 130 L Basophils # 0.0 Basophils % 0.6 Eosinophils # 0.3 Eosinophils % 3.8 Hematocrit 28.4 L Hemoglobin 8.9 L Lymphocytes # 1.1 Lymphocytes % 15.9 Mean Corpuscular Hemoglobin 29.0 Mean Corpuscular Hemoglobin Concent 31.3 L Mean Corpuscular Volume 92.5 Mean Platelet Volume 9.5 Monocytes # 0.7 Monocytes % 9.3 Neutrophils # 5.0 Neutrophils % 69.8 Nucleated Red Blood Cells # 0.0 Nucleated Red Blood Cells % 0.0 Platelet Count 98 L Red Blood Count 3.07 L Red Cell Distribution Width 20.0 H White Blood Count 7.2 MILADY ANDERSON MD Dec 22, 2016 20:18
--- NOTE | 2016-12-25 02:12 | DS ---
DATE OF ADMISSION: 11/20/2016 DATE OF DISCHARGE: 12/22/2016 FINAL DIAGNOSES: 1. Peritonitis, status post discontinuation of peritoneal catheter. 2. Status post mechanical fall. 3. Severe hypertension, resolved. 4. Congestive heart failure with exacerbation with ejection fraction of 20%. 5. Ascites, status post paracentesis and status post tunneled peritoneal drainage catheter placemen t. 6. End-stage renal disease, hemodialysis dependent. 7. Coronary artery disease status post coronary artery bypass graft. 8. Hypothyroidism. 9. Diabetes mellitus type 2. 10. Hemodialysis access malfunction, status post right IV fistulogram by vascular surgery. 11. Liver cirrhosis and portal hypertension. 12. Thrombocytopenia. BRIEF HISTORY: The patient is a 66-year-old male with a history of coronary artery disease status p ost CABG, history of pacemaker, the patient with end-stage renal disease on hemodialysis. The patie nt also with congestive heart failure, hypertension. The patient came to the emergency room with co mplaints of distended abdomen due to recurrent ascites and patient underwent paracentesis in the [facility] with removal of 8.5 liters of serous fluid. The patient also noted to have elevated pot assium of 6 and was given Kayexalate. The patient complained of increasing bilateral lower extremit y edema and shortness of breath. Patient was admitted for further evaluation and management. HOSPITAL COURSE: The patient was evaluated and followed by Dr. Maddox and Dr. Chester in nephrology co nsultation. The patient noted to have a problem with right upper extremity fistula. The patient wa s evaluated by Dr. Loco in vascular surgery consultation and patient underwent a right upper extrem ity fistulogram antegrade and retrograde access, venoplasty of severe inflow stenosis and outflow ve in stenosis on 11/21/2016. Patient was evaluated and followed by Dr. Cee in cardiology consultat ion. The patient with severe cardiomyopathy, ischemic and nonischemic in origin with ejection fract ion of less than 20%. Patient with history of denied cardiac transplant at [facility]. The patient was a lso evaluated by Dr. Kirkpatrick in gastroenterology consultation. Patient with recurrent ascites. Repe at thoracentesis on admission and on 12/02/2016, the patient also developed hypotension requiring pr essors and ICU monitoring. The patient also sustained a mechanical fall and underwent a brain CT wh ich was negative and had a hip x-ray, which was negative for any fracture. The patient was started on physical therapy; however, patient at times declined physical therapy due to generalized weakness . The patient was also evaluated by Dr. Tapia in hematology/oncology consultation for thrombocytope [place]. Patient's blood sugar was closely monitored and well controlled with NovoLog. The patient's T SH was 14 and the patient's Synthroid was increased to 125 mcg daily. Patient complained of recurre nt ascites and insisted on placing a tunneled peritoneal drainage catheter; however, was informed of increased risk of infection. However, patient insisted on placement of the catheter. Patient unde rwent a tunneled peritoneal drainage catheter placement on . Patient was continued on hemod ialysis. The patient's electrolytes were closely monitored. Patient spiked fever and peritoneal fl uid culture was collected and grew coagulase negative staph. The patient was diagnosed with periton itis and patient was evaluated by Dr. Stokes in infectious disease consultation. The patient's bloo d cultures were negative; however, the patient was given antibiotics and peritoneal catheter was dis continued. Patient's condition overall improved. Patient was strongly advised as to continuation o f care at half-way facility with physical therapy due to patient's overall decline and multip le comorbidities and generalized weakness; however, the patient strongly refused half-way fac ility and wanted to be discharged home. Patient was discharged home with home health care services. CONDITION ON DISCHARGE: Hemodynamically stable. ACTIVITY: As patient tolerates. DIET: 1800 ADA 2 g sodium, low fat, low cholesterol diet. DISCHARGE MEDICATIONS: Patient is given prescription for doxycycline 100 mg p.o. b.i.d. for 5 more days. Dictated By: DICKSON GROSSMAN DIETARY TECH for DEMETRA BRUNO MD, SR/RAYNA Conf#: [id number] DID#: [id number]
--- NOTE | 2016-12-25 02:16 | DS ---
DATE OF ADMISSION: 11/20/2016 DATE OF DISCHARGE: 12/22/2016 ADDENDUM MEDICATIONS ON DISCHARGE: 1. Doxycycline 100 mg p.o. b.i.d. for 5 days. 2. [place] p.r.n. for pain. 3. Lantus 15 units subcu at bedtime. 4. Synthroid 125 mcg p.o. daily. 5. Midodrine 10 mg p.o. t.i.d. p.r.n. for systolic blood pressure below 80. The patient is to continue on her home medications of: 1. Atorvastatin. 2. Glipizide 3. Protonix. DISCHARGE INSTRUCTIONS: The patient is instructed to follow up with primary care physician in 1 wee k. The patient is instructed to follow up with hemodialysis center for next hemodialysis. The chino ent was discharged with [facility] for medication management, peritoneal access wound drainage, and physical therapy. Interdisciplinary care was established for this patient. Plan of care was discussed with Dr. Vishal stearns. Dictated By: DICKSON GROSSMAN JEWEL HOLE ROUGH OPENER for DEMETRA BRUNO MD, SR/NTS Conf#: [id number] DID#: [id number]
== END 2016-12-22 17:47 | disposition home health service (06) | DRG 423 ==
LOC: E/R 06:04 → TEL 09:34 → ICU 11-23 06:01 → TEL 11-29 03:40
PROVIDERS: ADMIT Internal Medicine; ATTEND Internal Medicine
PROC: 0W9G3ZZ Drainage of Peritoneal Cavity, Percutaneous Approach (ICD-10-PCS; 2016-11-20)
PROC: 5A1D60Z (ICD-10-PCS; 2016-11-20)
PROC: B50W1ZZ Plain Radiography of Dialysis Shunt/Fistula using Low Osmolar Contrast (ICD-10-PCS; 2016-11-21)
PROC: 03773ZZ Dilation of Right Brachial Artery, Percutaneous Approach (ICD-10-PCS; principal; 2016-11-21 14:00)
PROC: 057Y3ZZ Dilation of Upper Vein, Percutaneous Approach (ICD-10-PCS; 2016-11-21 14:00)
PROC: 0W9G3ZZ Drainage of Peritoneal Cavity, Percutaneous Approach (ICD-10-PCS; 2016-11-22)
PROC: 30233R1 Transfusion of Nonautologous Platelets into Peripheral Vein, Percutaneous Approach (ICD-10-PCS; 2016-11-23)
PROC: 02HV33Z Insertion of Infusion Device into Superior Vena Cava, Percutaneous Approach (ICD-10-PCS; 2016-11-24)
PROC: 0W9G3ZZ Drainage of Peritoneal Cavity, Percutaneous Approach (ICD-10-PCS; 2016-12-02)
PROC: 0W9G30Z Drainage of Peritoneal Cavity with Drainage Device, Percutaneous Approach (ICD-10-PCS; 2016-12-06)
PROC: 30233N1 Transfusion of Nonautologous Red Blood Cells into Peripheral Vein, Percutaneous Approach (ICD-10-PCS; 2016-12-18)
PROC: 0WPGX3Z Removal of Infusion Device from Peritoneal Cavity, External Approach (ICD-10-PCS; 2016-12-21)
DX: K70.31 Alcoholic cirrhosis of liver with ascites (principal); R57.1 Hypovolemic shock; I50.43 Acute on chronic combined systolic (congestive) and diastolic (congestive) heart failure; K65.2 Spontaneous bacterial peritonitis; N18.6 End stage renal disease; I42.6 Alcoholic cardiomyopathy; K76.6 Portal hypertension; T82.858A Stenosis of other vascular prosthetic devices, implants and grafts, initial encounter; E87.1 Hypo-osmolality and hyponatremia; T85.79XA Infection and inflammatory reaction due to other internal prosthetic devices, implants and grafts, initial encounter; I13.2 Hypertensive heart and chronic kidney disease with heart failure and with stage 5 chronic kidney disease, or end stage renal disease; E87.5 Hyperkalemia; D63.8 Anemia in other chronic diseases classified elsewhere; Z98.84 Bariatric surgery status; Z95.0 Presence of cardiac pacemaker; E03.9 Hypothyroidism, unspecified; I25.10 Atherosclerotic heart disease of native coronary artery without angina pectoris; Z87.891 Personal history of nicotine dependence; D69.6 Thrombocytopenia, unspecified; Z95.810 Presence of automatic (implantable) cardiac defibrillator; E11.65 Type 2 diabetes mellitus with hyperglycemia; I34.0 Nonrheumatic mitral (valve) insufficiency; I36.1 Nonrheumatic tricuspid (valve) insufficiency; Z99.2 Dependence on renal dialysis; S01.81XA Laceration without foreign body of other part of head, initial encounter; W19.XXXA Unspecified fall, initial encounter; Y92.239 Unspecified place in hospital as the place of occurrence of the external cause; B95.7 Other staphylococcus as the cause of diseases classified elsewhere
CPT/HCPCS: 36430; 36569; 36589; 36901; 36902; 70450; 71010; 73500; 75982; 76937; 76942; 80048; 80053; 80202; 82105; 82140; 82962; 83036; 83615; 83735; 83880; 84443; 85025; 85049; 85362; 85378; 85384; 85610; 85670; 85730; 86022; 86644; 86703; 86704; 86709; 86803; 86850; 86900; 86901; 86920; 86945; 87040; 87070; 87081; 87102; 87116; 87340; 89050; 90935; 93005; 93931; 93970; 94640; 94664; 96372; 96374; 96375; 96376; 97110; 97116; 97162; 97530; C1725; C1769; C1887; C1894; J0610; J0696; J1170; J1265; J1644; J1815; J1940; J2250; J2270; J2405; J3010; J3370; J3475; J7030; J7040; J7050; P9016; P9035; P9047; Q9967

== ENCOUNTER 2017-01-02 04:18 | Emergency (ER) | payer MEDICARE, OTHER ==
[~2017-01-02] VITALS: Ht 162.6 cm; Wt 72.7 kg
[~2017-01-02 04:18] MED LIST changes: -ASPI-664 PO; -CARV12.579 PO; +DOXY100T2 PO; -FURO20TA3 PO; -HYDR-902 PO; +HYDR-906 PO; +LANT3I SC; -LEVO100T87 PO; +LEVO125T PO; +MIDO5TAB19 PO; -TAMS0.4C2 PO
[2017-01-02 04:23] VITALS: Ht 162.6 cm; Wt 72.7 kg
--- NOTE | 2017-01-02 04:44 | ERD ---
ER Documentation Chief Complaint Date/Time DATE: 01/02/17 TIME: 04:43 Chief Complaint abd pain and bloating, denies n/v recently dc 2 weeks ago from hospital HPI This is a 66-year-old gentleman with history of ascites comes in for abdominal pain and bloating. Patient has a history of fluid overload and has had multiple peritoneal tabs. Denies any chest pain. Denies any shortness of breath. Denies any other current complaints. ROS All systems reviewed and are negative except as per history of present illness. Medications Home Meds Active Scripts Hydrocodone/Acetaminophen ([place] 5-325 Tablet) 1 Each Tablet, 1 EACH PO Q4 for PAIN, #30 TAB Prov:DICKSON GROSSMAN 12/22/16 Insulin Glargine* (Lantus*) 100 Unit/Ml Soln, 15 UNIT SC HS for 30 Days Prov:DICKSON GROSSMAN 12/22/16 Midodrine* (Midodrine*) 5 Mg Tablet, 10 MG PO TID Y for sbp<80 for 30 Days, TAB Prov:DICKSON GROSSMAN 12/22/16 Levothyroxine Sodium* (Synthroid*) 125 Mcg Tablet, 125 MCG PO DAILY@06 for 30 Days, TAB Prov:DICKSON GROSSMAN 12/22/16 Doxycycline* (Vibramycin*) 100 Mg Tab, 100 MG PO BID for 5 Days, TAB Prov:DICKSON GROSSMAN 12/22/16 Reported Medications Pantoprazole* (Pantoprazole*) 40 Mg Tablet.dr, 40 MG PO AC BREAKFAST, TAB 10/16/16 Atorvastatin Calcium* (Atorvastatin Calcium*) 20 Mg Tablet, 20 MG PO QHS, #30 TAB 10/16/16 Glipizide* (Glipizide*) 10 Mg Tablet, 10 MG PO DAILY, TAB 03/13/15 Allergies Allergies: Coded Allergies: No Known Allergy (Unverified , 12/18/16) PMhx/Soc Anesthesia Reaction: No Hx 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 Disorder: No Hx Respiratory Disorders: No Hx Cardiac Disorders: Yes (CHF, CABG, HTN, CAD, PACEMAKER) Hx Psychiatric Problems: No Hx Miscellaneous Medical Probl: Yes (ESRD, hyperkalemia,anasarca, R AV dysfunction) Hx Alcohol Use: Yes Hx Substance Use: No Hx Tobacco Use: Yes Physical Exam Vitals Vital Signs Date Time Temp Pulse Resp B/P Pulse Ox O2 Delivery O2 Flow Rate FiO2 01/02/17 04:23 97.0 54 18 101/76 97 Physical Exam Const: [] Head: Atraumatic Eyes: Normal Conjunctiva ENT: Normal External Ears, Nose and Mouth. Neck: Full range of motion..~ No meningismus. Resp: Clear to auscultation bilaterally Cardio: Regular rate and rhythm, no murmurs Abd: Soft, non tender, non distended. Normal bowel sounds Skin: No petechiae or rashes Back: No midline or flank tenderness Ext: No cyanosis, or edema Neur: Awake and alert Psych: Normal Mood and Affect Procedures/MDM Patient will have ultrasound-guided paracentesis for symptomatic relief. Patient to be discharged afterwards. Return in 8 hours for serial abdominal exams Departure Diagnosis: Primary Impression: Ascites Ascites type: other type Qualified Code: R18.8 - Other ascites Condition: Stable KRISTI GOMEZ Jan 02, 2017 04:44
[2017-01-02] MEDS ORDERED: morphine 4 MG/ML VIAL IV STA ×2 (04:59→06:44)
[2017-01-02 05:13] LABS: ADD SCAN DIFF NO
[2017-01-02 05:19] LABS: BASOPHIL # 0.1 10^3/ul (0.0-0.1); BASOPHILS % 0.6 % (0.0-2.0); EOSINOPHILS # 0.1 10^3/ul (0.0-0.5); EOSINOPHILS % 1.1 % (0.0-7.0); HEMATOCRIT 30.8 % (42.0-52.0); HEMOGLOBIN 9.4 g/dl (14.0-18.0); LYMPHOCYTES # 1.2 10^3/ul (0.8-2.9); LYMPHOCYTES % 13.1 % (15.0-51.0); MEAN CORPUSCULAR HEMOGLOBIN 29.4 pg (29.0-33.0); MEAN CORPUSCULAR HGB CONC 30.5 g/dl (32.0-37.0); MEAN CORPUSCULAR VOLUME 96.3 fl (82.0-101.0); MEAN PLATELET VOLUME 9.4 fl (7.4-10.4); MONOCYTE # 0.9 10^3/ul (0.3-0.9); MONOCYTES % 10.5 % (0.0-11.0); NEUTROPHIL # 6.7 10^3/ul (1.6-7.5); NEUTROPHILS % 73.9 % (39.0-77.0); NUCLEATED RED BLOOD CELLS% 0.2 /100WBC (0.0-0.0); PLATELET COUNT 220 10^3/UL (140-415); RED CELL DISTRIBUTION WIDTH 21.4 % (11.5-14.5)
[2017-01-02 05:27] LABS: ALBUMIN 3.1 g/dl (3.3-4.9)
[2017-01-02 05:28] LABS: POTASSIUM 4.4 mmol/L (3.5-5.1)
[2017-01-02 05:30] LABS: ALBUMIN/GLOBULIN RATIO 1.03; BILIRUBIN,INDIRECT 0.3 mg/dl (0-1.1); BILIRUBIN,TOTAL 0.3 mg/dl (0.2-1.3); CREATININE 6.05 mg/dl (0.61-1.24); TOTAL PROTEIN 6.1 g/dl (6.1-8.1)
[2017-01-02 05:31] LABS: CALCIUM 7.8 mg/dl (8.4-10.2)
[2017-01-02 05:41] LABS: INR 1.1; PROTIME 14.2 Sec (12.2-14.2); PT RATIO 1.1
[2017-01-02 05:42] LABS: PARTIAL THROMBOPLASTIN TIME 29.2 Sec (25.0-35.0)
[2017-01-02] MEDS ORDERED: LIDOCAINE 1% (MPF) 5 ML VIAL ONE (09:17)
--- NOTE | 2017-01-02 10:03 | RADRPT ---
PROCEDURE: Ultrasound guided paracentesis. CLINICAL INDICATION: Ascites and shortness of breath. COMPARISON: No prior studies are available for comparison. TECHNIQUE: The risks, benefits, and alternatives were explained to the patient and/or the patient's family, inc luding but not limited to bleeding, infection, pain, visceral or vascular damage, shock, and . The patient and/or the patient's family understood the risks and the alternatives and wished to pro ceed with the procedure. Informed written consent was obtained. A procedural time out was performed . The patient's name, date of , and procedure to be performed were verified. Utilizing ultrasound guidance, optimal location for entry to the peritoneal cavity was ascertained. The overlying skin was prepped and draped in the usual sterile fashion. Approximately 10 ml of 1% Xylocaine was injected locally for pain control. Using ultrasound guidance, an 8 [place] catheter wa s introduced into the peritoneal cavity in the right lower quadrant without difficulty. FINDINGS: Initial images demonstrate ascites. Approximately 7.7 liters of serous fluid was aspirated and disc arded. The patient tolerated the procedure well without complication. IMPRESSION: 1. Successful ultrasound-guided paracentesis. RPTAT: QQ .Neo Jerome MD, MD Date Time Electronically viewed and signed by .Neo Jerome MD, on 01/02/2017 10:03 .R/
[2017-01-02 11:00] VITALS: BP 91/70; PULSE 91; RESP 16; TEMP 98
== END 2017-01-02 11:00 | disposition home or self-care (01) ==
LOC: E/R 04:18
DX: R18.8 Other ascites (principal); I12.0 Hypertensive chronic kidney disease with stage 5 chronic kidney disease or end stage renal disease; N18.6 End stage renal disease; I50.9 Heart failure, unspecified; E11.9 Type 2 diabetes mellitus without complications; E03.9 Hypothyroidism, unspecified; I25.10 Atherosclerotic heart disease of native coronary artery without angina pectoris; Z95.5 Presence of coronary angioplasty implant and graft; Z79.84 Long term (current) use of oral hypoglycemic drugs; Z79.4 Long term (current) use of insulin; Z87.891 Personal history of nicotine dependence
CPT/HCPCS: 36415; 80053; 82962; 83690; 85025; 85610; 85730; 93005; 96374; 96376; 99285; J2270

== ENCOUNTER 2017-01-07 14:43 | Emergency (ER) | payer MEDICARE, OTHER ==
[~2017-01-07] VITALS: Wt 77.5 kg
[2017-01-07] MEDS ORDERED: ONDANSETRON 4 MG INJ IV STA (16:47)
[2017-01-07] MEDS ORDERED: HYDROmorphONE 2 MG/ML SYG IV STA (16:47)
--- NOTE | 2017-01-07 17:06 | ERD ---
ER Documentation Chief Complaint Date/Time DATE: 01/07/17 TIME: 17:03 Chief Complaint PARACENTISIS HPI Patient is a 66-year-old male who reports requesting paracentesis for his chronic recurrent ascites. He states he gets the paracentesis done from time to time and that he has a scheduled as an outpatient but he cannot wait for his appointment because he is too uncomfortable. He denies any fever, vomiting, diarrhea, dysuria, flank pain, hematuria, abnormal bleeding, hematemesis, hematochezia, or melena. He states these are the same symptoms that he gets when he needs paracentesis with increased abdominal girth and discomfort. The only difference is that this time it has caused his genitals to swell as well. This is not interfering with his ability to urinate. He is currently taking all of his medications as prescribed. Nothing seems to make this better or worse. He denies any chest pain, shortness of breath, congestion, coughing, rhinorrhea, sore throat, or otalgia. The remainder review systems are negative. ROS All systems reviewed and are negative except as per history of present illness. Medications Home Meds Active Scripts Hydrocodone/Acetaminophen ([place] 5-325 Tablet) 1 Each Tablet, 1 EACH PO Q4 for PAIN, #30 TAB Prov:DICKSON GROSSMAN 12/22/16 Midodrine* (Midodrine*) 5 Mg Tablet, 10 MG PO TID Y for sbp<80 for 30 Days, TAB Prov:DICKSON GROSSMAN 12/22/16 Levothyroxine Sodium* (Synthroid*) 125 Mcg Tablet, 125 MCG PO DAILY@06 for 30 Days, TAB Prov:DICKSON GROSSMAN 12/22/16 Reported Medications Gabapentin* (Gabapentin*) 100 Mg Capsule, 100 MG PO TID, #90 CAP 01/07/17 Amiodarone Hcl* (Amiodarone Hcl*) 200 Mg Tablet, 200 MG PO QID, #90 TAB 01/07/17 Sevelamer Carbonate* (Renvela*) 800 Mg Tablet, 0.8 GM PO WITH MEALS, TAB 01/07/17 Tamsulosin Hcl* (Tamsulosin Hcl*) 0.4 Mg Cap.er.24h, 0.4 MG PO DAILY, CAP 01/07/17 Pantoprazole* (Pantoprazole*) 40 Mg Tablet.dr, 40 MG PO AC BREAKFAST, TAB 10/16/16 Atorvastatin Calcium* (Atorvastatin Calcium*) 20 Mg Tablet, 20 MG PO QHS, #30 TAB 10/16/16 Glipizide* (Glipizide*) 10 Mg Tablet, 10 MG PO DAILY, TAB 03/13/15 Discontinued Scripts Insulin Glargine* (Lantus*) 100 Unit/Ml Soln, 15 UNIT SC HS for 30 Days Prov:MARYANDICKSON GAYTAN 12/22/16 Doxycycline* (Vibramycin*) 100 Mg Tab, 100 MG PO BID for 5 Days, TAB Prov:MARYANLILA GAYTANETLANA 12/22/16 Allergies Allergies: Coded Allergies: No Known Allergy (Unverified , 01/07/17) PMhx/Soc Anesthesia Reaction: No Hx 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 Disorder: No Hx Respiratory Disorders: No Hx Cardiac Disorders: Yes (CHF, CABG, HTN, CAD, PACEMAKER) Hx Psychiatric Problems: No Hx Miscellaneous Medical Probl: Yes (ESRD, hyperkalemia,anasarca, R AV dysfunction) Hx Alcohol Use: Yes (patient denies (01/02/17)) Hx Substance Use: No Hx Tobacco Use: Yes (pt denies (01/02/2017)) FmHx Family History: No diabetes Physical Exam Vitals Vital Signs Date Time Temp Pulse Resp B/P Pulse Ox O2 Delivery O2 Flow Rate FiO2 01/07/17 17:54 98 20 113/60 100 Room Air 01/07/17 14:45 98.0 79 18 78 Physical Exam Const: [] Well-developed chronically ill-appearing male sitting in a chair in no acute distress Head: Atraumatic normocephalic Eyes: Normal Conjunctiva ENT: Normal External Ears, Nose and Mouth. Neck: Full range of motion..~ No meningismus. Resp: Clear to auscultation bilaterally Cardio: Regular rate and rhythm, no murmurs Abd: Soft, grossly distended consistent with ascites, nontender, positive a ascitic wave, no masses, rebound or guarding Skin: No petechiae or rashes, intermittent bruises noted Back: No midline or flank tenderness Ext: No cyanosis, or edema Neur: Awake and alert, oriented 3, GCS of 15, nonfocal Psych: Normal Mood and Affect Result Diagram: 01/07/17 8619 01/07/17 1704 Results 24 hrs Laboratory Tests Test 01/07/17 17:04 Activated Partial Thromboplast Time 33.8Sec Alanine Aminotransferase (ALT/SGPT) 18IU/L Albumin 3.1g/dl Albumin/Globulin Ratio 1.03 Alkaline Phosphatase 189IU/L Anion Gap 20 Aspartate Amino Transf (AST/SGOT) 19IU/L Basophils # 0.010^3/ul Basophils % 0.6% Blood Urea Nitrogen 48mg/dl Calcium Level 7.7mg/dl Carbon Dioxide Level 25mmol/L Chloride Level 94mmol/L Creatinine 5.72mg/dl Direct Bilirubin 0.00mg/dl Eosinophils # 0.210^3/ul Eosinophils % 2.4% Globulin 3.00g/dl Glucose Level 176mg/dl Hematocrit 30.2% Hemoglobin 9.6g/dl INR International Normalized Ratio 1.00 Indirect Bilirubin 0.2mg/dl Lymphocytes # 0.910^3/ul Lymphocytes % 12.6% Mean Corpuscular Hemoglobin 30.6pg Mean Corpuscular Hemoglobin Concent 31.8g/dl Mean Corpuscular Volume 96.2fl Mean Platelet Volume 9.1fl Monocytes # 0.810^3/ul Monocytes % 11.1% Neutrophils # 4.910^3/ul Neutrophils % 72.6% Nucleated Red Blood Cells # 0.010^3/ul Nucleated Red Blood Cells % 0.0/100WBC Platelet Count 72841^3/UL Potassium Level 4.2mmol/L Prothrombin Time 13.2Sec Prothrombin Time Ratio 1.0 Red Blood Count 3.1410^6/ul Red Cell Distribution Width 22.3% Sodium Level 135mmol/L Total Bilirubin 0.2mg/dl Total Protein 6.1g/dl White Blood Count 6.810^3/ul Current Medications Medications (Trade) Dose Ordered Sig/Aj Route PRN Reason Start Time Stop Time Status Last Admin Dose Admin Hydromorphone HCl (Dilaudid) 2 mg ONCE STAT IV 01/07/17 16:47 01/07/17 16:48 DC 01/07/17 17:28 Ondansetron HCl (Zofran Inj) 4 mg ONCE STAT IV 01/07/17 16:47 01/07/17 16:48 DC Procedures/MDM Differential includes but is not limited to recurrent ascites requesting paracentesis, liver failure Patient received paracentesis per the radiologist. He feels much better. I reviewed the lab work. Patient's renal failure is chronic. He is aware of this. He will follow-up as an outpatient. 1944: Patient is clinically stable for discharge home and follow-up as an outpatient. He is to continue his evaluation and treatment as an outpatient.. Departure Diagnosis: Primary Impression: Ascites Ascites type: other type Qualified Code: R18.8 - Other ascites Additional Impressions: Scrotal edema Renal failure Condition: Good Patient Instructions: Ascites, Chronic Renal Failure, Diet, Renal Additional Instructions: Continue with your current medications. Please schedule a follow-up appointment with your regular physician. They need to continue to monitor both your liver and your kidney failure. You need to limit your fluid intake for both your liver and kidney failure. Return to the emergency department for any new or worsening symptoms. MONICA MOSHER Jan 07, 2017 17:06
[2017-01-07 17:18] LABS: ADD SCAN DIFF NO
[2017-01-07 17:19] LABS: ABNORMAL IP MESSAGE 1; BASOPHILS % 0.6 % (0.0-2.0); EOSINOPHILS # 0.2 10^3/ul (0.0-0.5); EOSINOPHILS % 2.4 % (0.0-7.0); HEMATOCRIT 30.2 % (42.0-52.0); HEMOGLOBIN 9.6 g/dl (14.0-18.0); LYMPHOCYTES # 0.9 10^3/ul (0.8-2.9); LYMPHOCYTES % 12.6 % (15.0-51.0); MEAN CORPUSCULAR HEMOGLOBIN 30.6 pg (29.0-33.0); MEAN CORPUSCULAR HGB CONC 31.8 g/dl (32.0-37.0); MEAN CORPUSCULAR VOLUME 96.2 fl (82.0-101.0); MEAN PLATELET VOLUME 9.1 fl (7.4-10.4); MONOCYTE # 0.8 10^3/ul (0.3-0.9); MONOCYTES % 11.1 % (0.0-11.0); NEUTROPHIL # 4.9 10^3/ul (1.6-7.5); NEUTROPHILS % 72.6 % (39.0-77.0); PLATELET COUNT 155 10^3/UL (140-415); RED BLOOD COUNT 3.14 10^6/ul (4.70-6.10); RED CELL DISTRIBUTION WIDTH 22.3 % (11.5-14.5); WHITE BLOOD COUNT 6.8 10^3/ul (4.8-10.8)
[2017-01-07] MEDS ORDERED: TAMS0.4C2 PO (17:19)
[2017-01-07] MEDS ORDERED: SEVE800T7 PO (17:19)
[2017-01-07] MEDS ORDERED: GABA100C14 PO (17:21)
[2017-01-07] MEDS ORDERED: AMIO200T2 PO (17:21)
[2017-01-07 17:28] LABS: PROTIME 13.2 Sec (12.2-14.2)
[2017-01-07 17:29] LABS: PARTIAL THROMBOPLASTIN TIME 33.8 Sec (25.0-35.0)
[2017-01-07 17:39] LABS: ALBUMIN 3.1 g/dl (3.3-4.9)
[2017-01-07 17:40] LABS: POTASSIUM 4.2 mmol/L (3.5-5.1)
[2017-01-07 17:42] LABS: BILIRUBIN,INDIRECT 0.2 mg/dl (0-1.1); BILIRUBIN,TOTAL 0.2 mg/dl (0.2-1.3); CREATININE 5.72 mg/dl (0.61-1.24)
[2017-01-07 17:43] LABS: ALBUMIN/GLOBULIN RATIO 1.03; CALCIUM 7.7 mg/dl (8.4-10.2); TOTAL PROTEIN 6.1 g/dl (6.1-8.1)
[2017-01-07] MEDS ORDERED: LIDOCAINE 1% (MPF) 5 ML VIAL ONE (19:59)
[2017-01-07 20:25] VITALS: BP 83/69; PULSE 96; RESP 16
--- NOTE | 2017-01-08 07:33 | RADRPT ---
PROCEDURE: Ultrasound guided paracentesis CLINICAL INDICATION: Ascites TECHNIQUE: The risks benefits and alternatives of the procedure were explained to the patient. In formed written consent was obtained. The patient understood the risks benefits and alternatives and wished to proceed with the procedure. A time out was performed. The overlying skin of the right lower quadrant of the abdomen was prepped and draped in the usual sterile fashion. Approximately 10 cc of lidocaine was injected locally for pain control. Utilizing ultrasound guidance, an 6-[place]arian p aracentesis catheter was placed into the peritoneal cavity without difficulty. Fluid was drained i nto vacuum bottles. After completion of draining fluid, the catheter was removed and direct pressur e was applied to the puncture site. A compression bandage was then placed at the puncture site. e patient tolerated the procedure well without complication. The fluid was not sent to the lab fo r further analysis. COMPARISON: 01/02/2017 FINDINGS: Surgeon: Todd MEAD. Preprocedural diagnosis: Ascites. Postprocedural diagnosis: Ascites. Samples removed: 5200 cc of clear yellow fluid was obtained. Complications: None. Estimated blood loss: 0 cc. Condition: Stable and unchanged. IMPRESSION: 1. Successful ultrasound-guided paracentesis. RPTAT: QQ .Jim Brooks MD, MD Date Time Electronically viewed and signed by .Jim Brooks MD, on 01/07/2017 21:03 .Karin/
== END 2017-01-07 20:37 | disposition home or self-care (01) ==
LOC: E/R 14:43
DX: R18.8 Other ascites (principal); N50.89 Other specified disorders of the male genital organs; N18.6 End stage renal disease; I12.0 Hypertensive chronic kidney disease with stage 5 chronic kidney disease or end stage renal disease; I50.9 Heart failure, unspecified; I25.10 Atherosclerotic heart disease of native coronary artery without angina pectoris; E03.9 Hypothyroidism, unspecified; E11.9 Type 2 diabetes mellitus without complications; Z95.1 Presence of aortocoronary bypass graft; Z95.0 Presence of cardiac pacemaker; Z79.4 Long term (current) use of insulin; Z79.84 Long term (current) use of oral hypoglycemic drugs
CPT/HCPCS: 80053; 85025; 85610; 85730; 96374; 99285; J1170; J2405